=== PATIENT | male | born 1960 | race Caucasian/White ===

== ENCOUNTER → 2024-11-07 16:08 | Outpatient (BNV) | payer MEDICARE, SELFPAY | PROVIDERS: Visit Provider Clinical Nurse Specialist Psychiatric/Mental Health | DX: F33.2 Major depressive disorder, recurrent severe without psychotic features (principal); F41.1 Generalized anxiety disorder | CPT/HCPCS: 99205; G2212 ==

== ENCOUNTER 2024-12-18 09:00 | Outpatient (RCR) | payer MEDICARE, SELFPAY ==
--- NOTE | 2024-11-07 12:50 | P.CONTMS_ITS ---
History of Present Illness General Data Date of Service: 11/07/2024 Reason for consult: Depression Requesting provider: Kristina Desir History of Present Illness pt referred by Dr Desir for TMS consult due to severe depression and not re sponding to medications. PHQ9=24 and GAD7= 17. Pt is very depresse. He reports hypersomnia with sleeping at least 8 hours at night and then 4-5 hours during the day; hespends most of his days on the couch; he reports ow energy, anhedonia, poor appeite, feeling bad about himself, failing like failure, and psychomotor retardation. He also reports anious, nervous, worried every day. He reports irritability and feelings of dread. He denies SI or HI; He denies psychotic symptoms; he denies any periods of kaveh. Pt has a histroy of ETOH abuse and last drink was 3 months ago; he is taking naltrexone and topomax which he says is effective to reduce cravings. Pt past failed medication trials:abilify, lamictal, risperdal, effexor, paxil, lithium. Past Psychiatric History/Medication Trials: Depression since 2004. Hospitalized many times for depression,overdoses and etoh; 2004, 2006,2009,2017,2018, 2019. Most recent time was in 2019. 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 none in 3 months Trauma History: yes childhood Meds/Allergies Meds Narrative: Lexapro 20 mg daily wellbutrin XL 300mg daily am Latuda 40mg daily Naltrexone 50mg daily topomax 50mg daily trazodone 100mg bedtime Allergies Allergies Allergy/AdvReac Type Severity Reaction Status Date / Time No Known Allergies Allergy Verified 11/07/24 16:46 Mental Status Exam Mental Status Exam Patient Appearance: Well Grooomed and Appropriate Patient Orientation: Person, Place, Time and Situation Level of Consciousness: Awake Patient Behavior: Appropriate and Passive Mood Description: Depressed and Flat Affect Description: Depressed and Flat Patient Cognition Impaired: No Ability to Follow Directions: Good Speech Pattern: Clear, Monotone and Soft-Spoken Memory Description: Intact Hallucinations: None Delusions: Not Present Thought Process: Slowed Thinking Thought Content: positive for Poverty of Content Judgement: Good Assessment & Plan Assessment & Plan (1) Major depressive disorder, recurrent severe without psychotic features: Status: Acute Code(s): F33.2 - Major depressive disorder, recurrent severe without psychotic features (2) ANDREW (generalized anxiety disorder): Status: Acute Code(s): F41.1 - Generalized anxiety disorder Plan Pt is candidate for TMS treatment given severity of depression and lack of response to medications. He has no contraindications to TMS; he denies pacemaker or cochlear implant; he reports screws from 1982 right shoulder repair but he has had MRI of knee without incident in 2022. He denies history of kaveh or psychosis; He denies current SI ro HI; He has made suicide attempts in past with most recent being in 2019. He has history of heavy alcohol use but none in 3 months. He denies history of seizures; he has good support from family and specifically his Whitney. Plan: TMS treatment recommended Total time managing care of this patient today __90__ minutes. Patient educated on: diagnosis and TMS Guardian/Caregiver educated on: diagnosis, TMS and therapeutic strategies Informed Consent: understands
--- NOTE | 2024-11-12 16:26 | HO.TMSDAILY2 ---
TMS Daily Progress Note Daily TMS Progress Note Date of Service: 11/11/24 Week #: 1 Treatment #(06-20): 1 and mapping completed PHQ-9 Pre-Treatment (-): 24 PHQ-9 Most Recent (06-17): 24 ANDREW-7 Pre-Treatment (0-21): 17 ANDREW-7 Most Recent (0-21): 17 Reviewed: TMS Mapping/Re-mapping completed Verification: I have reviewed the TMS Personal Insurance Advisor Note and agree with the contents. The patient remains a candidate to continue TMS treatment per protocol. Assessment and Plan (1) Major depressive disorder, recurrent severe without psychotic features: Status: Acute Plan Continue TMS tx plan. Total time managing care of this patient today: 40 minutes.
--- NOTE | 2024-11-12 16:28 | HO.TMSDAILY2 ---
TMS Daily Progress Note Daily TMS Progress Note Date of Service: 11/12/24 Week #: 1 Treatment #(30): 2 PHQ-9 Pre-Treatment (-): 24 PHQ-9 Most Recent (06-17): 24 ANDREW-7 Pre-Treatment (0-21): 17 ANDREW-7 Most Recent (0-21): 17 Reviewed: TMS Tech Note Reviewed Verification: I have reviewed the TMS Production Maintenance Technician Note and agree with the contents. The patient remains a candidate to continue TMS treatment per protocol. Assessment and Plan (1) Major depressive disorder, recurrent severe without psychotic features: Status: Acute Plan Continue TMS tx plan
--- NOTE | 2024-11-18 10:58 | P.PNPS_ITS ---
TMS Daily Progress Note Daily TMS Progress Note Date of Service: 11/14/24 Week #: 1 Treatment #(06-20): 4 PHQ-9 Pre-Treatment (-): 24 PHQ-9 Most Recent (06-17): 24 ANDREW-7 Pre-Treatment (0-21): 17 ANDREW-7 Most Recent (0-21): 17 CGI-I Most Recent: 0 = Not Assessed Reviewed: TMS Tech Note Reviewed Verification: I have reviewed the TMS Pressure Test Operator Note and agree with the contents. The patient remains a candidate to continue TMS treatment per protocol. Assessment and Plan (1) Major depressive disorder, recurrent severe without psychotic features: Status: Acute (2) ANDREW (generalized anxiety disorder): Status: Acute Plan Continue TMS treatment as planned
--- NOTE | 2024-11-18 10:59 | HO.TMSDAILY2 ---
TMS Daily Progress Note Daily TMS Progress Note Date of Service: 11/18/24 Week #: 2 Treatment #(06-20): 6 PHQ-9 Pre-Treatment (-): 24 PHQ-9 Most Recent (06-17): 21 ANDREW-7 Pre-Treatment (0-21): 17 ANDREW-7 Most Recent (0-21): 19 CGI-I Most Recent: 0 = Not Assessed Reviewed: TMS Tech Note Reviewed Verification: I have reviewed the TMS Checker Cashier Note and agree with the contents. The patient remains a candidate to continue TMS treatment per protocol. Assessment and Plan (1) Major depressive disorder, recurrent severe without psychotic features: Status: Acute (2) ANDREW (generalized anxiety disorder): Status: Acute Plan Continue TMS treatment plan
--- NOTE | 2024-11-19 13:00 | HO.TMSDAILY2 ---
TMS Daily Progress Note Daily TMS Progress Note Date of Service: 11/19/24 Week #: 2 Treatment #(06-20): 7 PHQ-9 Pre-Treatment (-): 24 PHQ-9 Most Recent (06-17): 21 ANDREW-7 Pre-Treatment (0-21): 17 ANDREW-7 Most Recent (0-21): 19 CGI-I Most Recent: 0 = Not Assessed Reviewed: TMS Tech Note Reviewed Verification: I have reviewed the TMS Projection Welding Machine Operator Note and agree with the contents. The patient remains a candidate to continue TMS treatment per protocol. Assessment and Plan (1) Major depressive disorder, recurrent severe without psychotic features: Status: Acute (2) ANDREW (generalized anxiety disorder): Status: Acute Plan Continue TMS treatment plan
--- NOTE | 2024-11-25 09:54 | HO.TMSDAILY2 ---
TMS Daily Progress Note Daily TMS Progress Note Date of Service: 11/25/24 Week #: 2 Treatment #(-): 9 PHQ-9 Pre-Treatment (-): 24 PHQ-9 Most Recent (06-17): 21 ANDREW-7 Pre-Treatment (0-21): 17 ANDREW-7 Most Recent (0-21): 19 CGI-I Most Recent: 0 = Not Assessed Reviewed: TMS Tech Note Reviewed Verification: I have reviewed the TMS Concrete Pump Operator Helper Note and agree with the contents. The patient remains a candidate to continue TMS treatment per protocol. Assessment and Plan (1) Major depressive disorder, recurrent severe without psychotic features: Status: Acute (2) ANDREW (generalized anxiety disorder): Status: Acute Plan Continue TMS treatment plan
--- NOTE | 2024-11-29 13:22 | HO.TMSDAILY2 ---
TMS Daily Progress Note Daily TMS Progress Note Date of Service: 11/29/24 Week #: 3 Treatment #(-): 14 PHQ-9 Pre-Treatment (-): 24 PHQ-9 Most Recent (06-17): 12 ANDREW-7 Pre-Treatment (0-21): 17 ANDREW-7 Most Recent (0-21): 10 CGI-I Most Recent: 0 = Not Assessed Reviewed: TMS Tech Note Reviewed Verification: I have reviewed the TMS Broker Agricultural Produce Note and agree with the contents. The patient remains a candidate to continue TMS treatment per protocol. Assessment and Plan (1) Major depressive disorder, recurrent severe without psychotic features: Status: Acute
--- NOTE | 2024-12-09 17:34 | P.PNPS_ITS ---
TMS Daily Progress Note Daily TMS Progress Note Date of Service: 12/09/24 Week #: 4 Treatment #(06-20): 20 PHQ-9 Pre-Treatment (1-): 24 PHQ-9 Most Recent (06-17): 15 ANDREW-7 Pre-Treatment (0-21): 17 ANDREW-7 Most Recent (0-21): 18 CGI-I Most Recent: 0 = Not Assessed Reviewed: TMS Tech Note Reviewed Verification: I have reviewed the TMS Director Learning And Development Note and agree with the contents. The patient remains a candidate to continue TMS treatment per protocol. Assessment and Plan (1) Major depressive disorder, recurrent severe without psychotic features: Status: Acute Plan continue tms
--- NOTE | 2024-12-10 09:16 | P.PNPS_ITS ---
TMS Daily Progress Note Daily TMS Progress Note Date of Service: 11/21/24 Week #: 2 Treatment #(-): 9 PHQ-9 Pre-Treatment (-): 24 PHQ-9 Most Recent (06-17): 21 ANDREW-7 Pre-Treatment (0-21): 17 ADNREW-7 Most Recent (0-21): 19 CGI-I Most Recent: 0 = Not Assessed Reviewed: TMS Tech Note Reviewed Verification: I have reviewed the TMS Flatware Maker Note and agree with the contents. The patient remains a candidate to continue TMS treatment per protocol. Assessment and Plan (1) Major depressive disorder, recurrent severe without psychotic features: Status: Acute Plan continue tms
--- NOTE | 2024-12-10 09:17 | P.PNPS_ITS ---
TMS Daily Progress Note Daily TMS Progress Note Date of Service: 11/26/24 Week #: 3 Treatment #(06-20): 11 PHQ-9 Pre-Treatment (-): 24 PHQ-9 Most Recent (06-17): 12 ANDREW-7 Pre-Treatment (0-21): 17 ANDREW-7 Most Recent (0-21): 10 CGI-I Most Recent: 0 = Not Assessed Reviewed: TMS Tech Note Reviewed Verification: I have reviewed the TMS Unemployment Insurance Hearing Officer Note and agree with the contents. The patient remains a candidate to continue TMS treatment per protocol. Assessment and Plan (1) Major depressive disorder, recurrent severe without psychotic features: Status: Acute Plan continue tms
--- NOTE | 2024-12-10 09:20 | P.PNPS_ITS ---
TMS Daily Progress Note Daily TMS Progress Note Date of Service: 11/28/24 Week #: 3 Treatment #(-): 13 PHQ-9 Pre-Treatment (-): 24 PHQ-9 Most Recent (06-17): 12 ANDREW-7 Pre-Treatment (0-21): 17 ANDREW-7 Most Recent (0-21): 10 CGI-I Most Recent: 0 = Not Assessed Reviewed: TMS Tech Note Reviewed Verification: I have reviewed the TMS Event Security Officer Note and agree with the contents. The patient remains a candidate to continue TMS treatment per protocol. Assessment and Plan (1) Major depressive disorder, recurrent severe without psychotic features: Status: Acute Plan continue tms
--- NOTE | 2024-12-10 09:21 | P.PNPS_ITS ---
TMS Daily Progress Note Daily TMS Progress Note Date of Service: 12/02/24 Week #: 3 Treatment #(-): 15 PHQ-9 Pre-Treatment (1-): 24 PHQ-9 Most Recent (06-17): 18 ANDREW-7 Pre-Treatment (0-21): 17 ANDREW-7 Most Recent (0-21): 17 CGI-I Most Recent: 0 = Not Assessed Reviewed: TMS Tech Note Reviewed Verification: I have reviewed the TMS Farmworker Grain Note and agree with the contents. The patient remains a candidate to continue TMS treatment per protocol. Assessment and Plan (1) Major depressive disorder, recurrent severe without psychotic features: Status: Acute Plan continue tms
--- NOTE | 2024-12-10 09:22 | P.PNPS_ITS ---
TMS Daily Progress Note Daily TMS Progress Note Date of Service: 12/03/24 Week #: 4 Treatment #(06-20): 16 PHQ-9 Pre-Treatment (1-): 24 PHQ-9 Most Recent (06-17): 18 ANDREW-7 Pre-Treatment (0-21): 17 ANDREW-7 Most Recent (0-21): 17 CGI-I Most Recent: 0 = Not Assessed Reviewed: TMS Tech Note Reviewed Verification: I have reviewed the TMS Education Dean Note and agree with the contents. The patient remains a candidate to continue TMS treatment per protocol. Assessment and Plan (1) Major depressive disorder, recurrent severe without psychotic features: Status: Acute Plan continue tms
--- NOTE | 2024-12-10 09:23 | P.PNPS_ITS ---
TMS Daily Progress Note Daily TMS Progress Note Date of Service: 12/05/24 Week #: 4 Treatment #(06-20): 18 PHQ-9 Pre-Treatment (1-): 24 PHQ-9 Most Recent (06-17): 18 ANDREW-7 Pre-Treatment (0-21): 17 ANDREW-7 Most Recent (0-21): 17 CGI-I Most Recent: 0 = Not Assessed Reviewed: TMS Tech Note Reviewed Verification: I have reviewed the TMS Barrel Line Operator Note and agree with the contents. The patient remains a candidate to continue TMS treatment per protocol. Assessment and Plan (1) Major depressive disorder, recurrent severe without psychotic features: Status: Acute (2) ANDREW (generalized anxiety disorder): Status: Acute Plan Continue with TMS treatment plan
--- NOTE | 2024-12-12 17:38 | P.PNPS_ITS ---
TMS Daily Progress Note Daily TMS Progress Note Date of Service: 12/12/24 Week #: 4 Treatment #(06-20): 23 PHQ-9 Pre-Treatment (-): 24 PHQ-9 Most Recent (06-17): 15 ANDREW-7 Pre-Treatment (0-21): 17 ANDREW-7 Most Recent (0-21): 18 CGI-I Most Recent: 0 = Not Assessed Reviewed: TMS Tech Note Reviewed Verification: I have reviewed the TMS Manager Research And Development Note and agree with the contents. The patient remains a candidate to continue TMS treatment per protocol. Assessment and Plan (1) Major depressive disorder, recurrent severe without psychotic features: Status: Acute (2) ANDREW (generalized anxiety disorder): Status: Acute Plan This advertising copywriter spoke with Bridgett Valdes TMS coordinator and Hemant May MD about case including pt presentation and 's concerns; Pt has untreated sleep apnea. Plan is to discuss this with patient and order labs to rule out medical etiology for fatigue and low energy. Continue TMS plan
--- NOTE | 2024-12-15 21:49 | P.PNPS_ITS ---
TMS Daily Progress Note Daily TMS Progress Note Date of Service: 11/13/24 Week #: 1 Treatment #(06-20): 3 PHQ-9 Pre-Treatment (-): 24 PHQ-9 Most Recent (06-17): 24 ANDREW-7 Pre-Treatment (0-21): 17 ANDREW-7 Most Recent (0-21): 17 CGI-I Most Recent: 0 = Not Assessed Reviewed: TMS Tech Note Reviewed Verification: I have reviewed the TMS Building Cleaner Note and agree with the contents. The patient remains a candidate to continue TMS treatment per protocol. Assessment and Plan (1) Major depressive disorder, recurrent severe without psychotic features: Status: Acute (2) ANDREW (generalized anxiety disorder): Status: Acute Plan pt did have obrien took advil cont plan of care
--- NOTE | 2024-12-15 21:54 | HO.TMSDAILY2 ---
TMS Daily Progress Note Daily TMS Progress Note Date of Service: 11/15/24 Week #: 1 Treatment #(06-20): 5 PHQ-9 Pre-Treatment (-): 24 PHQ-9 Most Recent (06-17): 24 ANDREW-7 Pre-Treatment (0-21): 17 ANDREW-7 Most Recent (0-21): 17 CGI-I Most Recent: 0 = Not Assessed Reviewed: TMS Tech Note Reviewed Verification: I have reviewed the TMS Yield Loss Inspector Note and agree with the contents. The patient remains a candidate to continue TMS treatment per protocol. Assessment and Plan (1) Major depressive disorder, recurrent severe without psychotic features: Status: Acute Plan Patient flattened depressed tolerating treatment gradual increase in MT percentage continue plan of care
--- NOTE | 2024-12-15 21:59 | HO.TMSDAILY2 ---
TMS Daily Progress Note Daily TMS Progress Note Date of Service: 11/20/24 Week #: 2 Treatment #(06-20): 8 PHQ-9 Pre-Treatment (-): 24 PHQ-9 Most Recent (06-17): 21 ANDREW-7 Pre-Treatment (0-21): 17 ANDREW-7 Most Recent (0-21): 19 CGI-I Most Recent: 0 = Not Assessed Reviewed: TMS Tech Note Reviewed Verification: I have reviewed the TMS Manager Food Beverage Note and agree with the contents. The patient remains a candidate to continue TMS treatment per protocol. Assessment and Plan (1) Major depressive disorder, recurrent severe without psychotic features: Status: Acute (2) ANDREW (generalized anxiety disorder): Status: Acute Plan Patient continues depressed MT percentage gradually increasing no significant side effects noted
--- NOTE | 2024-12-15 22:04 | HO.TMSDAILY2 ---
TMS Daily Progress Note Daily TMS Progress Note Date of Service: 12/04/24 Week #: 4 Treatment #(06-20): 17 PHQ-9 Pre-Treatment (1-): 24 PHQ-9 Most Recent (06-17): 18 ANDREW-7 Pre-Treatment (0-21): 17 ANDREW-7 Most Recent (0-21): 17 CGI-I Most Recent: 0 = Not Assessed Reviewed: TMS Tech Note Reviewed Verification: I have reviewed the TMS Milk Route Supervisor Note and agree with the contents. The patient remains a candidate to continue TMS treatment per protocol. Assessment and Plan (1) Major depressive disorder, recurrent severe without psychotic features: Status: Acute (2) ANDREW (generalized anxiety disorder): Status: Acute Plan Patient complains of some fatigue post treatment otherwise tolerating treatment
--- NOTE | 2024-12-15 22:10 | P.PNPS_ITS ---
TMS Daily Progress Note Daily TMS Progress Note Date of Service: 12/06/24 Week #: 4 Treatment #(06-20): 19 PHQ-9 Pre-Treatment (-): 24 PHQ-9 Most Recent (06-17): 18 ANDREW-7 Pre-Treatment (0-21): 17 ANDREW-7 Most Recent (0-21): 17 CGI-I Most Recent: 0 = Not Assessed Reviewed: TMS Tech Note Reviewed Verification: I have reviewed the TMS Ping Pong Table Assembler Note and agree with the contents. The patient remains a candidate to continue TMS treatment per protocol. Assessment and Plan (1) Major depressive disorder, recurrent severe without psychotic features: Status: Acute (2) ANDREW (generalized anxiety disorder): Status: Acute Plan Patient states he is doing okay continues with fatigue question some improvement in motivation but minimal patient will be meeting with Mary Mercedes next treatment to reassess treatment
--- NOTE | 2024-12-15 22:18 | P.PNPS_ITS ---
TMS Daily Progress Note Daily TMS Progress Note Date of Service: 12/11/24 Week #: 5 Treatment #(-): 22 PHQ-9 Pre-Treatment (1-): 24 PHQ-9 Most Recent (06-17): 15 ANDREW-7 Pre-Treatment (0-21): 17 ANDREW-7 Most Recent (0-21): 18 CGI-I Most Recent: 0 = Not Assessed Reviewed: TMS Tech Note Reviewed Verification: I have reviewed the TMS Day Haul Youth Supervisor Note and agree with the contents. The patient remains a candidate to continue TMS treatment per protocol. Assessment and Plan (1) Major depressive disorder, recurrent severe without psychotic features: Status: Acute (2) ANDREW (generalized anxiety disorder): Status: Acute Plan pt continues to have daytime fatigue lethargy ? etiology
--- NOTE | 2024-12-15 22:26 | HO.TMSDAILY2 ---
TMS Daily Progress Note Daily TMS Progress Note Date of Service: 12/13/24 Week #: 5 Treatment #(30): 24 PHQ-9 Pre-Treatment (-): 24 PHQ-9 Most Recent (06-17): 15 ANDREW-7 Pre-Treatment (0-21): 17 ANDREW-7 Most Recent (0-21): 18 CGI-I Most Recent: 0 = Not Assessed Reviewed: TMS Tech Note Reviewed Verification: I have reviewed the TMS Set Up Mechanic Coil Winding Machines Note and agree with the contents. The patient remains a candidate to continue TMS treatment per protocol. Assessment and Plan (1) Major depressive disorder, recurrent severe without psychotic features: Status: Acute (2) ANDREW (generalized anxiety disorder): Status: Acute Plan pts has been concerned sees no change pt has had different perspective discussed with piedad and kavya beckham np
--- NOTE | 2024-12-16 15:17 | P.PNPS_ITS ---
TMS Daily Progress Note Daily TMS Progress Note Date of Service: 12/10/24 Week #: 5 Treatment #(06-20): 21 PHQ-9 Pre-Treatment (-): 24 PHQ-9 Most Recent (06-17): 15 ANDREW-7 Pre-Treatment (0-21): 17 ANDREW-7 Most Recent (0-21): 18 CGI-I Most Recent: 0 = Not Assessed Reviewed: TMS Tech Note Reviewed Verification: I have reviewed the TMS Riveting Machine Operator Automatic Note and agree with the contents. The patient remains a candidate to continue TMS treatment per protocol. Assessment and Plan (1) Major depressive disorder, recurrent severe without psychotic features: Status: Acute (2) ANDREW (generalized anxiety disorder): Status: Acute Plan pts has been concerned sees no change pt has had different perspective and PHQ9 improving. Discussed with Bridgett Zimmerman TMS coordinator and Glenroy May MD
--- NOTE | 2024-12-17 13:04 | HO.TMSDAILY2 ---
TMS Daily Progress Note Daily TMS Progress Note Date of Service: 12/16/24 Week #: 5 Treatment #(30): 25 PHQ-9 Pre-Treatment (1-): 24 PHQ-9 Most Recent (06-17): 22 ANDREW-7 Pre-Treatment (0-21): 17 ANDREW-7 Most Recent (0-21): 18 CGI-I Most Recent: 0 = Not Assessed Reviewed: TMS Tech Note Reviewed Verification: I have reviewed the TMS Electronic Publications Specialist Note and agree with the contents. The patient remains a candidate to continue TMS treatment per protocol. Assessment and Plan (1) Major depressive disorder, recurrent severe without psychotic features: Status: Acute (2) ANDREW (generalized anxiety disorder): Status: Acute Plan pt and sees no change: pt and informed about options for ECT and Esketamine. Pt states he is interested in esketamine treatmetn. Continue with TMS protocol
--- NOTE | 2024-12-17 13:06 | HO.TMSDAILY2 ---
TMS Daily Progress Note Daily TMS Progress Note Date of Service: 12/17/24 Week #: 6 Treatment #(06-20): 26 PHQ-9 Pre-Treatment (-): 24 PHQ-9 Most Recent (06-17): 22 ANDREW-7 Pre-Treatment (0-21): 17 ANDREW-7 Most Recent (0-21): 18 CGI-I Most Recent: 0 = Not Assessed Reviewed: TMS Tech Note Reviewed Verification: I have reviewed the TMS Correction Officer [facility] Note and agree with the contents. The patient remains a candidate to continue TMS treatment per protocol. Assessment and Plan (1) Major depressive disorder, recurrent severe without psychotic features: Status: Acute (2) ANDREW (generalized anxiety disorder): Status: Acute Plan pt and sees no change: pt and informed about options for ECT and Esketamine. Pt states he is interested in esketamine treatmetn. Continue with TMS protocol
--- NOTE | 2024-12-29 21:46 | P.PNPS_ITS ---
TMS Daily Progress Note Daily TMS Progress Note Date of Service: 11/13/24 Week #: 1 Treatment #(06-20): 3 PHQ-9 Pre-Treatment (-): 24 PHQ-9 Most Recent (06-17): 24 ANDREW-7 Pre-Treatment (0-21): 17 ANDREW-7 Most Recent (0-21): 18 CGI-I Most Recent: 0 = Not Assessed Reviewed: TMS Tech Note Reviewed Verification: I have reviewed the TMS Change Management Director Note and agree with the contents. The patient remains a candidate to continue TMS treatment per protocol. Assessment and Plan (1) Major depressive disorder, recurrent severe without psychotic features: Status: Acute Plan some c/o pain tx advil
--- NOTE | 2024-12-29 21:50 | P.PNPS_ITS ---
TMS Daily Progress Note Daily TMS Progress Note Date of Service: 11/15/24 Week #: 1 Treatment #(06-20): 5 PHQ-9 Pre-Treatment (-): 24 PHQ-9 Most Recent (06-17): 24 ANDREW-7 Pre-Treatment (0-21): 17 ANDREW-7 Most Recent (0-21): 18 CGI-I Most Recent: 0 = Not Assessed Reviewed: TMS Tech Note Reviewed Verification: I have reviewed the TMS Supervisor Fish Processing Note and agree with the contents. The patient remains a candidate to continue TMS treatment per protocol. Assessment and Plan (1) Major depressive disorder, recurrent severe without psychotic features: Status: Acute Plan depressed withdrawn cont plan of care
--- NOTE | 2024-12-29 21:57 | HO.TMSDAILY2 ---
TMS Daily Progress Note Daily TMS Progress Note Date of Service: 12/29/24 Week #: 2 Treatment #(06-20): 8 PHQ-9 Pre-Treatment (-): 24 PHQ-9 Most Recent (06-17): 24 ANDREW-7 Pre-Treatment (0-21): 17 ANDREW-7 Most Recent (0-21): 18 CGI-I Most Recent: 0 = Not Assessed Reviewed: TMS Tech Note Reviewed Verification: I have reviewed the TMS Wireless Internet Installer Note and agree with the contents. The patient remains a candidate to continue TMS treatment per protocol. Assessment and Plan (1) Major depressive disorder, recurrent severe without psychotic features: Status: Acute Plan cont plan pt remains quite depressed
--- NOTE | 2024-12-29 22:01 | HO.TMSDAILY2 ---
TMS Daily Progress Note Daily TMS Progress Note Date of Service: 12/04/24 Week #: 4 Treatment #(06-20): 17 PHQ-9 Pre-Treatment (1-): 24 PHQ-9 Most Recent (06-17): 24 ANDREW-7 Pre-Treatment (0-21): 17 ANDREW-7 Most Recent (0-21): 18 CGI-I Most Recent: 0 = Not Assessed Reviewed: TMS Tech Note Reviewed Verification: I have reviewed the TMS Weather Strip Installer Note and agree with the contents. The patient remains a candidate to continue TMS treatment per protocol. Assessment and Plan (1) Major depressive disorder, recurrent severe without psychotic features: Status: Acute Plan pt flat dysphoric some imp ?
--- NOTE | 2024-12-29 22:06 | HO.TMSDAILY2 ---
TMS Daily Progress Note Daily TMS Progress Note Date of Service: 12/06/24 Week #: 4 Treatment #(06-20): 19 PHQ-9 Pre-Treatment (1-): 24 PHQ-9 Most Recent (06-17): 14 ANDREW-7 Pre-Treatment (0-21): 17 ANDREW-7 Most Recent (0-21): 18 CGI-I Most Recent: 0 = Not Assessed Reviewed: TMS Tech Note Reviewed Verification: I have reviewed the TMS Monitoring Engineer Note and agree with the contents. The patient remains a candidate to continue TMS treatment per protocol. Assessment and Plan (1) Major depressive disorder, recurrent severe without psychotic features: Status: Acute Plan pt apathetic limited fx quite concerned
--- NOTE | 2024-12-31 13:17 | P.PNPS_ITS ---
TMS Daily Progress Note Daily TMS Progress Note Date of Service: 11/27/24 Week #: 3 Treatment #(-30): 12 PHQ-9 Pre-Treatment (1-): 24 PHQ-9 Most Recent (06-17): 14 ANDREW-7 Pre-Treatment (0-21): 17 ANDREW-7 Most Recent (0-21): 18 CGI-I Most Recent: 0 = Not Assessed Reviewed: TMS Tech Note Reviewed Verification: I have reviewed the TMS Staff Physical Therapist Note and agree with the contents. The patient remains a candidate to continue TMS treatment per protocol.
--- NOTE | 2025-01-21 17:53 | HO.TMSDAILY2 ---
TMS Daily Progress Note Daily TMS Progress Note Date of Service: 12/18/24 Week #: 6 Treatment #(06-20): 27 PHQ-9 Pre-Treatment (-): 24 PHQ-9 Most Recent (06-17): 22 ANDREW-7 Pre-Treatment (0-21): 17 ANDREW-7 Most Recent (0-21): 18 CGI-I Most Recent: 0 = Not Assessed Reviewed: TMS Tech Note Reviewed Verification: I have reviewed the TMS Blade Worker Note and agree with the contents. The patient remains a candidate to continue TMS treatment per protocol. Assessment and Plan (1) Major depressive disorder, recurrent severe without psychotic features: Status: Acute Plan pt flat withdrawn and depressed will consider ect spravato ? sub use Remains severely depressed not functioning quite constricted
== END 2024-12-19 12:00 | disposition admitted as inpatient to this hospital (09) ==
LOC: HO.PTMS 09:00
PROVIDERS: Visit Provider Clinical Nurse Specialist Psychiatric/Mental Health
DX: F33.2 Major depressive disorder, recurrent severe without psychotic features (principal); F41.1 Generalized anxiety disorder
CPT/HCPCS: 90867; 90868

== ENCOUNTER 2024-12-18 10:31 | Outpatient (REF) | payer MEDICARE, SELFPAY ==
[2024-12-18 10:40] LABS: MANUAL DIFF FLAG NO
[2024-12-18 10:59] LABS: Hematocrit 45.1 % (42.0-52.0); Hemoglobin 16.2 g/dl (14.0-18.0); Imm Gran Abs Auto 0.10 X10*3/uL (0.00-0.03); Imm Gran Pct Auto 1.4 % (0.0-0.4); Lymphocytes Absolute Auto 2.0 X10*3/uL (1.2-4.9); Mean Corpuscular HGB Conc 35.9 g/dl (31.0-36.0); Mean Corpuscular Hemoglobin 30.9 pg (27.0-33.0); Mean Corpuscular Volume 86.1 fL (80.0-98.0); NRBC Abs Auto 0.000 X10*3/uL (0.0-0.012); NRBC Pct Auto 0.0 /100WBC (0.0-0.2); Platelet Count 204 X10*3/uL (160-400); Red Blood Count 5.24 X10*6/uL (4.60-5.80); White Blood Count 7.3 X10*3/uL (4.8-10.8)
--- OUTSIDE RECORDS SUMMARY | 2024-12-18 11:28 | XMS_ITS | Clinical Summary ---
Author Organization [facility], Address [address] [address] Phone Care Team Providers Care Molder Vacuum Name Role Phone Deena Rojo NP Primary Care Provider Allergies Active Allergy Reactions Criticality Noted Date Comments Bupropion 03/24/2021 [place] 03/24/2021 Paroxetine 03/24/2021 Venlafaxine 03/24/2021 Medications ARIPiprazole (Abilify) 5 MG tablet Take 5 mg by mouth 1 (one) time each day Active amLODIPine (NORVASC) 5 MG tablet Take 5 mg by mouth 1 (one) time each day Active escitalopram (LEXAPRO) 20 MG tablet Take 20 mg by mouth 1 (one) time each day Active fenofibrate (TRIGLIDE) 160 MG tablet Take 160 mg by mouth 1 (one) time each day Active folic acid (FOLVITE) 1 MG tablet Take 1 mg by mouth 1 (one) time each day Active omega-3 acid ethyl esters (LOVAZA) 1 g capsule Take 2 g by mouth 2 (two) times a day Active Melatonin 5 MG tablet Take by mouth Active naltrexone (DEPADE) 50 MG tablet Take 50 mg by mouth 1 (one) time each day Active oxyCODONE (OxyCONTIN) 10 MG 12 hr abuse-deterrent tablet Take 10 mg by mouth every 12 (twelve) hours Do not crush, chew, or split. Active pantoprazole (PROTONIX) 20 MG EC tablet Take 20 mg by mouth 1 (one) time each day before breakfast Do not crush, chew, or split. Active rosuvastatin (CRESTOR) 20 MG tablet Take 20 mg by mouth 1 (one) time each day Active thiamine (VITAMIN B-1) 100 MG tablet Take 100 mg by mouth 1 (one) time each day Active traZODone (DESYREL) 150 MG tablet Take 150 mg by mouth every night Active acetaminophen (TYLENOL) 500 MG tablet Take by mouth every 6 (six) hours if needed for mild pain Active lisinopril 5 MG tablet Take 1 tablet (5 mg total) by mouth 1 (one) time each day 30 tablet 11 Active omega-3 (FISH OIL) 1000 MG capsule Take 2,000 mg by mouth Active Active Problems Problem Noted Date Diagnosed Date Benign prostatic hyperplasia 07/28/2021 Recurrent depression 07/28/2021 Essential (primary) hypertension 03/24/2021 Hyperlipidemia 03/24/2021 Gastroesophageal reflux disease 03/24/2021 Immunizations Immunization Administration Dates Next Due DTaP 09/15/2015 Pfizer SARS-COV-2 09/05/2020,08/15/2020 Pneumococcal Polysaccharide 10/29/2019, 7 Shingrix 01/22/2021 Zoster 11/05/2020 Social History Tobacco Use Types Packs/Day Years Used Date Smoking Tobacco: Never Smokeless Tobacco: Never Sex and Gender Information Value Date Recorded Sex Assigned at Not on file Legal Sex Male 12:34 PM EDT Gender Identity Not on file Sexual Orientation Not on file Plan of Treatment Health Maintenance Due Date Last Done Comments Colorectal Cancer Screening: Annual FOBT 2010 Colorectal Cancer Screening: Colonoscopy 2010 Colorectal Cancer Screening: Sigmoidoscopy 2010 Pneumococcal Vaccine: 50+ Years (2 of 2 - PCV) 10/28/2020 10/29/2019, 02/16/2007 Influenza Vaccine (#1) 2025 Pneumococcal Vaccine: Peds ( 0 to 5 Years) and At-Risk Patients (6 to 49 Years) Discontinued 10/29/2019, 02/16/2007 Hepatitis B Vaccine Aged Out No longe r eligible based on patient's age to complete [place] [id number] [facility] Care Teams Molder Vacuum Relationship Specialty Start Date End Date Deena Rojo NP [address] [place] [address] PCP - General Nurse Practitioner 03/24/21
[2024-12-18 12:41] LABS: Alanine Aminotransferase 227 U/L (0-40); Albumin Level 4.5 g/dL (3.5-5.0); Alkaline Phosphatase 109 U/L (39-117); Anion Gap 14 (12-20); Aspartate Amino Transferase 299 U/L (5-37); Blood Urea Nitrogen 10 mg/dL (9-16); Calcium 8.6 mg/dL (8.4-10.2); Carbon Dioxide 23 mmol/L (22-29); Chloride 105 mmol/L (96-108); Estimated Glomerular Filt Rate > 60; Potassium 3.3 mmol/L (3.3-5.1); Sodium 139 mmol/L (135-145); Total Protein 7.1 g/dL (6.5-8.0)
[2024-12-18 12:58] LABS: Folate 14.6 ng/mL (> or = 4.0); Vitamin B12 758 pg/mL (200-900)
== END 2024-12-18 10:32 | disposition home or self-care (01) ==
LOC: HO.LAB 10:31
PROVIDERS: PCP Nurse Practitioner Family; Visit Provider Psychiatry & Neurology Psychiatry
DX: F33.2 Major depressive disorder, recurrent severe without psychotic features (principal); E78.1 Pure hyperglyceridemia; R53.83 Other fatigue
CPT/HCPCS: 36415; 80053; 82607; 82746; 84443; 85025; 85652; 99212

== ENCOUNTER 2024-12-18 13:36 | Outpatient (AMB) | payer MEDICARE, SELFPAY ==
--- NOTE | 2024-12-18 23:52 | A.OFFPSYCH_ITS ---
Intake Intake Visit Reasons: Depression Allergies No Known Allergies Allergy (Verified 12/19/24 13:11) HPI- Psychiatric Chief Complaint: Depression HPI Narrative: Patient is referred along with his secondary to lack of response to TMS ongoing depression history of failed medication trials concerns about patient's lack of functioning. Patient has a history of alcoholism last relapse supposedly 7 months ago patient repeatedly denies relapse as a cause for why he is minimally functioning spending all day and house Patient sees Dr. 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 Check CBC Chem profile B12 folate TSH EKG reviewed risks benefits alternatives to ECT patient has failed TMS trial adamant regarding no current substance use Patient and will consider inpatient versus outpatient. Patient denies active thoughts of suicide No current trials of tricyclic nortriptyline Rexulti which remain alternatives Past records reviewed including prior hospitalization Counseling and coordination of Care Pt. Self Management counseling: Breathing, Sleep hygiene and Behavior activation Details-Med Mgmt counseling: Patient has failed Latuda citalopram check labs for any reasons for treatment resistant depression Diagnosis and Prognosis Counseling: Impact of diagnosis on life functions, Problematic behaviors secondary to diagnosis and Adequacy of current interventions Details-Diagnosis/Prognosis counseling: Discussed risks of ECT risks benefits alternatives reviewed patient again adamantly denies use of substances or alcohol his reason for lack of response no medical contraindication to ECT check CBC Chem profile EKG discussed option of inpatient versus outpatient literature given. Details: I spent [60] minutes reviewing the record, seeing the patient and documenting in the medical record. Counseling provided to the patient/caregiver as outlined below. Addressed patient/caregiver concerns regarding current medication regime including effective adherence. Addressed patient/caregiver concerns regarding diagnosis and prognosis including accuracy of diagnosis, prognosis over time, impact of diagnosis. Addressed patient/caregiver concerns regarding impact of recent stressors. 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 none in 3 months Trauma History: yes childhood Coding Level of Care Code Est Pt Level 5 (84471) Diagnoses Major depressive disorder, recurrent severe without psychotic features F33.2 Hypertriglyceridemia E78.1 Fatigue R53.83
== END 2024-12-18 13:37 | disposition home or self-care (01) ==
LOC: HO.HOP 13:36
PROVIDERS: PCP Nurse Practitioner Family; Visit Provider Psychiatry & Neurology Psychiatry
DX: F33.2 Major depressive disorder, recurrent severe without psychotic features (principal); E78.1 Pure hyperglyceridemia; R53.83 Other fatigue
CPT/HCPCS: 99215

== ENCOUNTER 2024-12-19 13:02 | Inpatient (IN) | payer MEDICARE, SELFPAY ==
--- NOTE | 2024-12-19 13:08 | ED.GENADULT ---
HPI - General Adult General Chief complaint: Psychiatric Symptoms Stated complaint: crisis Time Seen by Provider: 12/19/24 13:40 Source: patient Mode of arrival: ambulatory Limitations: no limitations History of Present Illness ED Provider: Tamanna Levine PA-C HPI narrative: Patient is a 64 year old assigned male at with a history of MDD and ANDREW receiving transcranial magnetic stimulation (TMS) on an outpatient basis presenting to the emergency department today with increased depression. Patient states that he was seen for his TMS session by Dr. May who recommended inpatient level of psychiatric care and had him come down to the emergency department. Patient denies any thoughts of hurting himself or others. Patient denies any dizziness, lightheadedness, abdominal pain, nausea, vomiting, fever, chills, blurry vision, double vision, loss of vision, chest pain, difficulty breathing, shortness of breath, back pain, night sweats, pain with urination, increased urinary frequency, increased urinary urgency, blood in his urine or stool, syncope or a near syncopal episode, recent trauma or falls, bowel incontinence, bladder incontinence, or any other complaints at this time. Relieving factors: none Exacerbating factors: none Associated symptoms: denies other symptoms Treatments prior to arrival: none Related Data Home Medications ?Medication ?Instructions ?Recorded ?Confirmed amlodipine 10 mg tablet 10 mg PO DAILY 12/19/24 12/19/24 bupropion HCl 300 mg 24 hr tablet, 300 mg PO QAM 12/19/24 12/19/24 extended release escitalopram oxalate 20 mg tablet 20 mg PO BEDTIME 12/19/24 12/19/24 ezetimibe 10 mg tablet 10 mg PO DAILY 12/19/24 12/19/24 fenofibrate 160 mg tablet 160 mg PO DAILY 12/19/24 12/19/24 lurasidone 40 mg tablet 40 mg PO QPM 12/19/24 12/19/24 metformin 500 mg tablet,extended 500 mg PO DAILY 12/19/24 12/19/24 release 24 hr naltrexone 50 mg tablet 50 mg PO DAILY 12/19/24 12/19/24 omega-3 acid ethyl esters 1 gram 2 cap PO BID 12/19/24 12/19/24 capsule rosuvastatin 20 mg tablet 20 mg PO DAILY 12/19/24 12/19/24 topiramate 50 mg tablet 50 mg PO BEDTIME 12/19/24 12/19/24 trazodone 100 mg tablet 100 mg PO BEDTIME 12/19/24 12/19/24 Allergies Allergy/AdvReac Type Severity Reaction Status Date / Time No Known Allergies Allergy Verified 12/19/24 13:11 Review of Systems Constitutional: Constitutional: Reports no additional constitutional complaints, Denies chills, Denies fever(s) and Denies night sweats Eyes: Eyes: Reports no additional eye complaints, Denies blurry vision, Denies change in vision, Denies diplopia, Denies eye discharge, Denies loss of vision and Denies eye pain ENT: Denies dizziness Cardiovascular: Cardiovascular: Reports no additional cardiovascular complaints, Denies chest pain, Denies lightheadedness, Denies Loss of Consciousness and Denies dyspnea Respiratory: Respiratory: Reports no additional respiratory complaints and Denies dyspnea Gastrointestinal: Gastrointestinal: Reports no additional gastrointestinal complaints, Denies abdominal pain, Denies melena, Denies hematochezia, Denies change in bowel habits and Denies change in stool character Genitourinary: Genitourinary: Reports no additional male genitourinary complaints, Denies hematuria, Denies oliguria, Denies difficulty urinating, Denies dysuria, Denies urinary frequency, Denies urinary hesitancy, Denies urinary incontinence and Denies urinary urgency Musculoskeletal: Musculoskeletal: Reports no additional musculoskeletal complaints, Denies numbness and Denies tingling Neurologic: Denies dizziness, Denies loss of vision, Denies numbness and Denies tingling Psychiatric: Psychiatric: Reports depression, Denies homicidal ideation and Denies suicidal ideation Endocrine: Endocrine: Reports no additional endocrine complaints Hematologic/Lymphatic: Hematologic/Lymphatic: Reports no additional hematologic/lymphatic complaints Allergic/Immunologic: Allergic/Immunologic: Reports no additional allergic/immunologic complaints [facility] Past Medical History Attestation statement: The following information was validated with the patient. Source: old records reviewed and nursing notes reviewed Medical History Fatigue Social History Social History Household Members: Spouse Housing: House Do you presently have visiting nurse or other home services: No Alcohol intake: former Patient Tobacco Use Status: Never used Tobacco Smoked in Last 30 Days: No Use of substances other than those prescribed or required for medical reasons: No Currently Displaying Signs/Symptoms of Drug Intoxication Withdrawal: No Have you been hit, kicked, punched, or otherwise hurt by someone within the past year? If so, by whom?: No Do you feel safe in your current relationship?: No Is there a partner from a previous relationship who is making you feel unsafe now?: No Are you made to feel afraid or neglected: No Spiritual Healthcare Practices: none Zoroastrian Healthcare Practices: none Cultural Healthcare Practices: none Advance Directives: No Advance Directives Information Provided: Yes Do you have thoughts of harming others: None Do you have a plan to hurt others: No Plan Recently lost weight without trying: No How much weight loss: Not applicable Eating poorly because of decreased appetite: No Nutrition screen score: 0 Nutrition Risks: No Nutritional Risk Poor oral hygiene: No Physical Exam ED Vital Signs: Vital Signs - 24 hr 12/19/24 13:09 Temperature 97.2 F Pulse Rate 83 Respiratory Rate 18 Blood Pressure 128/85 Pulse Oximetry 97 Oxygen Delivery Method Room Air BMI result Body Mass Index 34.3 Const General: cooperative, no acute distress, alert and awake Nutritional Appearance: well nourished Orientation/consciousness: patient oriented x3 HENMT Head: Yes normal to inspection and Yes atraumatic Ears: hearing grossly normal bilaterally and external ears normal General nose exam: Normal external nose present, no nasal discharge noted and no epistaxis Face and sinus: Yes normal facial exam, No abrasion and No laceration Mouth: Normal oral and palatal mucosa present, no drooling and no muffled voice Eyes General: appearance normal, both eyes and all related structures Periorbital: periorbital findings normal Eyelids: Yes eyelids normal Conjunctivae: conjunctivae normal Pupils: Equal, round and reactive pupils present EOM: EOMs intact bilaterally Neck Neck: Yes normal visual inspection, Yes full ROM and Yes no lymphadenopathy Resp Effort & Inspection: normal respiratory effort and able to speak in complete sentences Neuro General: patient oriented x3, moves all extremities and CN's II-XI intact bilaterally Cranial nerves: Yes Equal, round and reactive pupils present Cognition (Neuro): normal cognition Extrem General: Yes normal to inspection, Yes full ROM and Yes capillary refill normal Psych Appearance: grossly normal Mental Status: mental status grossly normal Affect: Labile affect present Attitude: Guarded attititude/behavior present Course Course Course Narrative: MARY Meneses 12/19/24 1309 This is a Rapid Medical Examination (RME) performed by Miko Terrell PA-C in triage. Full HPI, ROS, assessment and treatment plan per primary provider in the Main ED. Hx: 64 yo M hc of MDD here from Dr. May's office for increasing depression. he was at an appointment for TMS treatment today, dr. may feels he needs a higher level of care, sent to ED for inpatient treatment. denies SI/HI. remote hx of self harm. Plan: med clearance Reevaluation(s) Reevaluation #1: Time: 06:21 Date: 12/20/24 Provider: Sincere Prasad MD Patient in physician observation for psychiatric evaluation.? Patient has been in the emergency department for about 17 hours. No acute events reported overnight. No current complaints. VS stable.? Patient was evaluated by CARE team and is in in-patient psychiatric bed search. Will continue to monitor. Medications Administered Generic Name Dose Route Start Last Admin Trade Name Freq PRN Reason Stop Dose Admin Amlodipine Besylate 10 mg 12/20/24 09:00 12/23/24 08:31 Amlodipine Besylate 10 Mg Tablet PO 10 mg DAILY PAYAM Administration Protocol Atorvastatin Calcium 80 mg 12/20/24 09:00 12/23/24 08:31 Atorvastatin Calcium 80 Mg Tablet PO 80 mg DAILY PAYAM Administration Bupropion HCl 300 mg 12/19/24 20:00 12/23/24 08:31 Bupropion Hcl Xl 300 Mg Tab.Er.24h PO 300 mg DAILY PAYAM Administration Ezetimibe 10 mg 12/20/24 09:00 12/23/24 08:47 Ezetimibe 10 Mg Tablet PO 10 mg DAILY PAYAM Administration Escitalopram Oxalate 20 mg 12/19/24 21:00 12/22/24 20:42 Escitalopram Oxalate 20 Mg Tablet PO 20 mg BEDTIME PAYAM Administration Fenofibrate 160 mg 12/20/24 09:00 12/23/24 08:30 Fenofibrate 160 Mg Tablet PO 160 mg DAILY PAYAM Administration Hydroxyzine HCl 25 mg 12/20/24 13:56 12/23/24 08:36 Hydroxyzine Hcl 25 Mg Tablet PO 25 mg Q6H PRN Administration mild anxiety Lorazepam 1 mg 12/20/24 17:21 12/22/24 20:42 Lorazepam 1 Mg Tablet PO 1 mg Q2H PRN Administration CIWA 8-11 Lorazepam 2 mg 12/20/24 17:21 12/23/24 08:36 Lorazepam 1 Mg Tablet PO 2 mg Q2H PRN Administration [facility] 12-15 Lurasidone HCl 40 mg 12/19/24 21:00 12/22/24 20:42 Lurasidone Hcl 40 Mg Tablet PO 40 mg BEDTIME PAYAM Administration Naltrexone HCl 50 mg 12/20/24 09:00 12/23/24 08:31 Naltrexone Hcl 50 Mg Tablet PO 50 mg DAILY PAYAM Administration Thiamine HCl 100 mg 12/20/24 17:30 12/23/24 08:31 Thiamine Hcl 100 Mg Tablet PO 100 mg DAILY PAYAM Administration Topiramate 50 mg 12/19/24 21:00 12/22/24 20:40 Topiramate 25 Mg Tablet PO 50 mg BEDTIME PAYAM Administration Trazodone HCl 100 mg 12/19/24 21:00 12/22/24 20:42 Trazodone Hcl 100 Mg Tablet PO 100 mg BEDTIME PAYAM Administration Discontinued Medications Generic Name Dose Route Start Last Admin Trade Name Jordan PRN Reason Stop Dose Admin Metformin HCl 500 mg 12/20/24 09:00 12/23/24 08:31 Metformin Hcl Er 500 Mg Tab.Er.24h PO 500 mg DAILY PAYAM Administration Medical Decision Making Medical Decision Making [facility] Narrative: Patient is a 64 year old assigned male at with a history of MDD and ANDREW receiving transcranial magnetic stimulation (TMS) on an outpatient basis presenting to the emergency department today with increased depression. Patient's physical exam was as noted in the physical exam portion of this note. Patient's blood work showed chronically elevated LFTs (AST 206 / ALT 182) - likely secondary to alcohol use, and an ethyl alcohol level of 127. I explained my physical exam findings as well as all test results to the patient. I answered all questions asked by the patient. Patient placed in observation pending CARE team evaluation at 1310. Patient's disposition will be determined after CARE Team evaluation. Differential Diagnosis Differential Diagnoses: The differential diagnosis associated with the presentation includes Depression Worsening depression Alcohol intoxication Admission/Observation Consideration of admission/observation: Escalation of care including admission/observation considered Patient's disposition will be determined after CARE Team evaluation. Lab Data [facility] Lab Attestation statement: I reviewed the patient's lab results. My interpretation of these results are in the MDM Rationale portion of this note. 12/19/24 13:34 08 07:31 Labs: Lab Results 12/19/24 12/19/24 Range/Units 13:34 16:58 WBC 7.4 (4.8-10.8) X10*3/uL RBC 5.07 (4.60-5.80) X10*6/uL Hgb 16.1 (14.0-18.0) g/dl Hct 44.1 (42.0-52.0) % MCV 87.0 (80.0-98.0) fL MCH 31.8 (27.0-33.0) pg MCHC 36.5 H (31.0-36.0) g/dl RDW 13.3 (11.0-16.0) % Plt Count 212 (160-400) X10*3/uL MPV 8.9 L (9.4-12.4) fL Immature Gran % (Auto) 0.9 H (0.0-0.4) % Neut % (Auto) 52.0 (45-73) % Lymph % (Auto) 36.7 (20-40) % [place] % (Auto) 8.3 (2-11) % Eos % (Auto) 1.4 (0-4) % Baso % (Auto) 0.7 (0-2) % Lymph # (Auto) 2.7 (1.2-4.9) X10*3/uL [place] # (Auto) 0.6 (0.1-1.2) X10*3/uL Eos # (Auto) 0.1 (0.0-0.4) X10*3/uL Baso # (Auto) 0.1 (0.0-0.2) X10*3/uL Abs Immat Gran (auto) 0.07 H (0.00-0.03) X10*3/uL Absolute Neuts (auto) 3.8 (2.0-8.3) x10*3/uL Absolute Nucleated RBC 0.000 (0.0-0.012) X10*3/uL Nucleated RBC % (auto) 0.0 (0.0-0.2) /100WBC Sodium 141 (135-145) mmol/L Potassium 3.5 (3.3-5.1) mmol/L Chloride 106 (96-108) mmol/L Carbon Dioxide 22 (22-29) mmol/L Anion Gap 17 (12-20) BUN 11 (9-16) mg/dL Creatinine 0.92 (0.5-1.4) mg/dL Estim Creat Clear Calc 95.3 Estimated GFR > 60 Random Glucose 90 (60-115) mg/dL Calcium 8.6 (8.4-10.2) mg/dL Magnesium 1.8 (1.6-2.6) mg/dL Total Bilirubin 0.9 (0.0-1.0) mg/dL AST 206 H (5-37) U/L ALT 182 H (0-40) U/L Alkaline Phosphatase 109 (39-117) U/L Total Protein 7.0 (6.5-8.0) g/dL Albumin 4.4 (3.5-5.0) g/dL TSH 1.59 (0.32-4.0) uIU/mL Urine Color Dark Yellow Urine Appearance Clear Urine pH 6.5 (5.0-9.0) Ur Specific [place] 1.020 (1.005-1.025) Urine Protein Trace (Neg-Trace) mg/dL Urine Glucose (UA) Negative (Negative) mg/dL Urine Ketones Trace (Negative) mg/dL Urine Blood Negative (Negative) Urine Nitrite Negative (Negative) Ur Leukocyte Esterase Small (1+) H (Negative) Urine RBC 0-2 (0-2) /HPF Urine WBC 6-10 H (0-5) /HPF Ur Squamous Epith Cells 3-5 (0-2) /HPF Urine Bacteria None Seen (None Seen) Hyaline Casts 3-5 (0-2) /LPF Salicylates < 5.0 L (15-30) mg/dL Urine Opiates Screen Not Detected (Not Detect) Ur Buprenorphine Scrn Not Detected (Not Detect) ng/mL Ur Oxycodone Screen Not Detected (Not Detect) ng/mL Urine Methadone Screen Not Detected (Not Detect) ng/mL Urine Fentanyl Screen Not Detected (Not Detect) Acetaminophen < 3 (<30) mcg/mL Ur Barbiturates Screen Not Detected (Not Detect) Ur Phencyclidine Scrn Not Detected (Not Detect) Ur Amphetamines Screen Not Detected (Not Detect) U Benzodiazepines Scrn Not Detected (Not Detect) Urine Cocaine Screen Not Detected (Not Detect) U Marijuana (THC) Screen Not Detected (Not Detect) Ethyl Alcohol 127 mg/dL Independent Interpretation I performed an independent interpretation of an: EKG Interpretation: I independently interpreted this EKG and am in agreement with the below findings: Vent. Rate: 77 BPM Atrial Rate: 77 BPM P-R Int: 180 ms QRS Dur: 104 ms QT Int: 408 ms P-R-T Axes: 68 67 80 degrees QTcB Int: 461 ms Normal sinus rhythm Normal ECG No previous ECGs available DD/ 1608 Discharge Plan Discharge Clinical Impression: Alcohol use, Elevated LFTs Depression Qualifiers: Depression Type: unspecified Qualified Code(s): F32.A - Depression, unspecified Patient Disposition: Admitted As Inpatient Discharge Date/Time: 12/20/24 15:42
[2024-12-19 13:09] VITALS: BP 128/85; PULSE 83; RESP 18; TEMP 36.2; O2SAT 97; BMI 34.3
[2024-12-19 13:39] LABS: MANUAL DIFF FLAG NO
[2024-12-19 13:40] LABS: Hematocrit 44.1 % (42.0-52.0); Hemoglobin 16.1 g/dl (14.0-18.0); Imm Gran Abs Auto 0.07 X10*3/uL (0.00-0.03); Imm Gran Pct Auto 0.9 % (0.0-0.4); Lymphocytes Absolute Auto 2.7 X10*3/uL (1.2-4.9); Mean Corpuscular HGB Conc 36.5 g/dl (31.0-36.0); Mean Corpuscular Hemoglobin 31.8 pg (27.0-33.0); Mean Corpuscular Volume 87.0 fL (80.0-98.0); NRBC Abs Auto 0.000 X10*3/uL (0.0-0.012); NRBC Pct Auto 0.0 /100WBC (0.0-0.2); Platelet Count 212 X10*3/uL (160-400); Red Blood Count 5.07 X10*6/uL (4.60-5.80); White Blood Count 7.4 X10*3/uL (4.8-10.8)
--- NOTE | 2024-12-19 13:41 | ECG_ITS ---
Test Reason : r/o prolonged qt Blood Pressure : */* mmHG Vent. Rate : 77 BPM Atrial Rate : 77 BPM P-R Int : 180 ms QRS Dur : 104 ms QT Int : 408 ms P-R-T Axes : 68 67 80 degrees QTcB Int : 461 ms Normal sinus rhythm Normal ECG No previous ECGs available Referred By: Tamanna Levine Electronically Signed By: CHUCK HENDRICKSON MD
[2024-12-19 13:55] LABS: Alanine Aminotransferase 182 U/L (0-40); Albumin Level 4.4 g/dL (3.5-5.0); Alkaline Phosphatase 109 U/L (39-117); Anion Gap 17 (12-20); Aspartate Amino Transferase 206 U/L (5-37); Blood Urea Nitrogen 11 mg/dL (9-16); Calcium 8.6 mg/dL (8.4-10.2); Carbon Dioxide 22 mmol/L (22-29); Chloride 106 mmol/L (96-108); Creatinine Clr Calc Pharmacy 95.3; Estimated Glomerular Filt Rate > 60; Magnesium 1.8 mg/dL (1.6-2.6); Potassium 3.5 mmol/L (3.3-5.1); Sodium 141 mmol/L (135-145); Total Protein 7.0 g/dL (6.5-8.0)
[2024-12-19 13:58] LABS: Acetaminophen LAB < 3 mcg/mL (<30); Salicylate < 5.0 mg/dL (15-30)
--- OUTSIDE RECORDS SUMMARY | 2024-12-19 14:46 | XMS_ITS | Clinical Summary ---
Author Organization [facility], Address [address] [facility] [place] [address] Phone Care Team Providers Care Eap Counselor Name Role Phone Deena Rojo NP Primary Care Provider Allergies Active Allergy Reactions Criticality Noted Date Comments Bupropion 03/24/2021 [place] 03/24/2021 Paroxetine 03/24/2021 Venlafaxine 03/24/2021 Medications ARIPiprazole [...] complete [place] [id number] [facility] Care Teams Eap Counselor Relationship Specialty Start Date End Date Deena Rojo NP [address] [place] [address] PCP - General Nurse Practitioner 03/24/21
[2024-12-19 17:10] LABS: Appearance Urine Clear; Glucose Urine UA Negative (Negative); PH 6.5 (5.0-9.0); Specific Gravity - Urine 1.020 (1.005-1.025); UMIC TRIGGER UACC YES
[2024-12-19 17:21] LABS: UACC Culture Trigger YES
[2024-12-19 17:25] LABS: Cannabinoid Screen Urine Not Detected (Not Detect)
--- NOTE | 2024-12-19 18:21 | MHC.CARE ---
Patient evaluated by the CARE Team, disposition inpatient psychiatric treatment. ED provider Tamanna Levine updated with plan.
--- NOTE | 2024-12-19 18:25 | PC.NURSE ---
Fro home with complaints of worsening depression. Was told by provider to come to ED for inpatient admission. Calm and cooperative, spoke with on the phone. Denies SI/HI
--- NOTE | 2024-12-19 19:25 | PC.NURSE ---
Assumed care of patient at 1845, patient calm and cooperative, offering no complaints to this RN. Continue plan of care for [facility]
[2024-12-19] MEDS: buPROPion HCl XL 300 MG TAB.ER.24H PO (20:05)
--- NOTE | 2024-12-19 23:55 | PC.NURSE ---
pt sleeping at this time.
[2024-12-20 06:33] VITALS: BP 137/77; PULSE 77; RESP 17; TEMP 36.8; O2SAT 99
--- NOTE | 2024-12-20 07:10 | PC.NURSE ---
Patient is a 64 year old with a history of MDD and ANDREW receiving transcranial magnetic stimulation (TMS) on an outpatient basis presenting to the emergency department today with increased depression from Dr. Spencer's office. Patient's blood work showed chronically elevated LFTs (AST 206 / ALT 182) - likely secondary to alcohol use, and an ethyl alcohol level of 127. Patient evaluated by the CARE team and recommend [facility].
[2024-12-20] MEDS: buPROPion HCl XL 300 MG TAB.ER.24H PO (09:51)
--- NOTE | 2024-12-20 11:11 | PHA.MEDREC ---
Addendum entered by Nesha Green RPh 12/20/24 12:28: Reviewed by [facility] Original Note: Pharmacy Consult ? Medication Reconciliation Pharmacy has reviewed the medication reconciliation done by nursing. Claims match med list.
--- NOTE | 2024-12-20 15:00 | PC.NURSE ---
Report given to in-patient behavioral health unit. Pending transfer.
[2024-12-20 16:11] VITALS: BMI 34.3
[2024-12-20 16:12] VITALS: BP 136/75; PULSE 89; RESP 18; TEMP 36.2; O2SAT 96
--- NOTE | 2024-12-20 16:16 | PC.NURSE ---
Pt admitted to [facility] at 1541 from [facility] for treatment of depression. Pt signed a CV with provider on arrival to unit. Pt was cooperative with safety/skin check. Skin check remarkable for healing scabs on bilateral upper and lower extremities. VS obtained. Fluids and toiletries provided. Pt oriented to unit, room, and given menu to complete. Admission and admission note to be completed by assigned nurse.
--- NOTE | 2024-12-20 18:40 | PC.ADMIT ---
Addendum entered by Jacinto Robles RN 12/20/24 19:19: Apparently pt arrived to the unit at 15:40, however t/w took over at 16:30. Original Note: Pt is a 64-year-old male who arrived to ~16:30 on a CV from the Pod for the treatment of treatment-resistant depression with SI (currently denies SI). Pt has a hx of alcohol use disorder with multiple prior hospitalizations inpatient psych and detox. Precipitants of this admission include increased symptoms of depression such as sleeping 22 hours daily, not showering, not engaged. Pt rates depression and anxiety 02/28. He denies SI/HI/AH/VH currently. He is on CIWA for alcohol withdrawals. Upon admission pt is tremulous and anxious but not diaphoretic and denying withdrawal symptoms. Pt minimizes his drinking and mental health issues . He has had 2 prior suicide attempts which he also minimizes I was blackout drunk . He is a [facility] patient who reportedly has tried multiple treatments and every antidepressant with poor effect. Pt signed all ROIs however pt noted: He does NOT want his spouse knowing anything in regards to his alcohol use.
[2024-12-20 20:00] VITALS: BP 125/63; PULSE 80; RESP 15; TEMP 36.2; O2SAT 96
[2024-12-21 08:00] VITALS: BP 134/82; PULSE 79; RESP 18; TEMP 36.1; O2SAT 96
[2024-12-21 08:01] LABS: Alanine Aminotransferase 115 U/L (0-40); Albumin Level 4.2 g/dL (3.5-5.0); Alkaline Phosphatase 95 U/L (39-117); Anion Gap 14 (12-20); Aspartate Amino Transferase 122 U/L (5-37); Blood Urea Nitrogen 10 mg/dL (9-16); Calcium 9.1 mg/dL (8.4-10.2); Carbon Dioxide 24 mmol/L (22-29); Chloride 107 mmol/L (96-108); Cholesterol 141 mg/dL (<200); Creatinine Clr Calc Pharmacy 89.4; Estimated Glomerular Filt Rate > 60; HDL Cholesterol 45 mg/dL (>40); Potassium 3.9 mmol/L (3.3-5.1); Sodium 141 mmol/L (135-145); Total Protein 6.5 g/dL (6.5-8.0); Triglycerides 217 mg/dL (<150)
--- NOTE | 2024-12-21 08:50 | HO.PSYADMNOT ---
HPI Date of Service: 12/21/24 Chief Complaint: depression Sources of Information: patient interviewed, chart reviewed and crisis/core team assessment reviewed HPI Subjective Notes: Conditional Voluntary Healthcare Proxy: No Guardianship: No Medical Problems Affecting Mental Status: No Narrative: 64 yo MWM with worsening depression - hx TRD and getting TMS here to start ECT for ongoing depressive sys not responding to treatment as usual - ongoing depression, hopeless/helpless feelings- no active si , last SA was 12 year ago when he Christian while blacked out on alcohol. Also rates high anxiety- staying in bed 22 hrs/day- xs sleep, no energy- Hx trying multiple antidepressants Reports decreased appetite, weight , energy , anehdonia severe , and feelings of guilt- Past Psychiatric History: denies prior psychiatric hospitalization? last suicide attempt 12 years ago Medical Evaluation Reviewed: Yes medical clear for psychiatric admission [facility] Medical History Fatigue Family History: lives with , has 3 adult children and 4 grandchildren; retired from [employer] in 2020 Social History: family is supportive; Substance History: alcohol 2 nips /day doesn't want his to know Trauma History: yes childhood Diagnostics Vital Signs (24Hr): Vital Signs - 24 hr 12/20/24 16:12 12/20/24 20:00 12/21/24 08:00 Temperature 97.1 F 97.2 F 97.0 F Pulse Rate 89 80 79 Respiratory Rate 18 15 18 Blood Pressure 136/75 125/63 134/82 Pulse Oximetry 96 96 96 Oxygen Delivery Method Room Air Room Air BMI result Body Mass Index 34.3 Labs 12/19/24 13:34 12/21/24 07:31 Labs: Laboratory Results - last 48 hr 12/19/24 12/19/24 12/21/24 13:34 16:58 07:31 WBC 7.4 RBC 5.07 Hgb 16.1 Hct 44.1 MCV 87.0 MCH 31.8 MCHC 36.5 H RDW 13.3 Plt Count 212 MPV 8.9 L Immature Gran % (Auto) 0.9 H Neut % (Auto) 52.0 Lymph % (Auto) 36.7 Roane % (Auto) 8.3 Eos % (Auto) 1.4 Baso % (Auto) 0.7 Lymph # (Auto) 2.7 Roane # (Auto) 0.6 Eos # (Auto) 0.1 Baso # (Auto) 0.1 Abs Immat Gran (auto) 0.07 H Absolute Neuts (auto) 3.8 Absolute Nucleated RBC 0.000 Nucleated RBC % (auto) 0.0 Sodium 141 141 Potassium 3.5 3.9 Chloride 106 107 Carbon Dioxide 22 24 Anion Gap 17 14 BUN 11 10 Creatinine 0.92 0.98 Estim Creat Clear Calc 95.3 89.4 Estimated GFR > 60 > 60 Random Glucose 90 107 Calcium 8.6 9.1 Magnesium 1.8 Total Bilirubin 0.9 1.2 H AST 206 H 122 H ALT 182 H 115 H Alkaline Phosphatase 109 95 Total Protein 7.0 6.5 Albumin 4.4 4.2 Triglycerides 217 H Cholesterol 141 LDL Cholesterol, Calc 53 HDL Cholesterol 45 TSH 1.59 2.23 Urine Color Dark Yellow Urine Appearance Clear Urine pH 6.5 Ur Specific Grady 1.020 Urine Protein Trace Urine Glucose (UA) Negative Urine Ketones Trace Urine Blood Negative Urine Nitrite Negative Ur Leukocyte Esterase Small (1+) H Urine RBC 0-2 Urine WBC 6-10 H Ur Squamous Epith Cells 3-5 Urine Bacteria None Seen Hyaline Casts 3-5 Salicylates < 5.0 L Urine Opiates Screen Not Detected Ur Buprenorphine Scrn Not Detected Ur Oxycodone Screen Not Detected Urine Methadone Screen Not Detected Urine Fentanyl Screen Not Detected Acetaminophen < 3 Ur Barbiturates Screen Not Detected Ur Phencyclidine Scrn Not Detected Ur Amphetamines Screen Not Detected U Benzodiazepines Scrn Not Detected Urine Cocaine Screen Not Detected U Marijuana (THC) Screen Not Detected Ethyl Alcohol 127 Meds/Allergies Meds Home Medications ?Medication ?Instructions ?Recorded ?Confirmed ?Type amlodipine 10 mg tablet 10 mg PO DAILY 12/19/24 12/19/24 History bupropion HCl 300 mg 24 hr tablet, 300 mg PO QAM 12/19/24 12/19/24 History extended release escitalopram oxalate 20 mg tablet 20 mg PO BEDTIME 12/19/24 12/19/24 History ezetimibe 10 mg tablet 10 mg PO DAILY 12/19/24 12/19/24 History fenofibrate 160 mg tablet 160 mg PO DAILY 12/19/24 12/19/24 History lurasidone 40 mg tablet 40 mg PO QPM 12/19/24 12/19/24 History metformin 500 mg tablet,extended 500 mg PO DAILY 12/19/24 12/19/24 History release 24 hr naltrexone 50 mg tablet 50 mg PO DAILY 12/19/24 12/19/24 History omega-3 acid ethyl esters 1 gram 2 cap PO BID 12/19/24 12/19/24 History capsule rosuvastatin 20 mg tablet 20 mg PO DAILY 12/19/24 12/19/24 History topiramate 50 mg tablet 50 mg PO BEDTIME 12/19/24 12/19/24 History trazodone 100 mg tablet 100 mg PO BEDTIME 12/19/24 12/19/24 History Allergies Allergies Allergy/AdvReac Type Severity Reaction Status Date / Time No Known Allergies Allergy Verified 12/19/24 13:11 Mental Status Exam Mental Status Exam Patient Appearance: Appropriate Patient Orientation: Person, Place, Time and Situation Level of Consciousness: Awake and Alert Patient Behavior: Cooperative, Passive and Poor Eye Contact Mood Description: Constricted and Sad Affect Description: Flat Patient Cognition Impaired: No Ability to Follow Directions: Fair Speech Pattern: Clear and Impoverished Hallucinations: None Delusions: Not Present Thought Process: Intact and Goal Oriented Depressive Symptoms: Increased Anxiety, Sleeping More Than Usual, Hopelessness, Feelings of Guilt, Increased Fatigue, Loss of Energy and Difficulty Concentrating Judgement: Fair Assessment & Plan Assessment & Plan (1) Major depressive disorder, recurrent severe without psychotic features: Status: Acute Code(s): F33.2 - Major depressive disorder, recurrent severe without psychotic features (2) ANDREW (generalized anxiety disorder): Status: Acute Code(s): F41.1 - Generalized anxiety disorder (3) Alcohol use: Status: Acute Code(s): F10.90 - Alcohol use, unspecified, uncomplicated Plan Admission for possible ECT Patient educated on: diagnosis and ECT Informed Consent: understands Reason for continued inpatient stay Substantial Risk for: inability to function and rapid decompensation Statement Statement: I have reviewed the history and physical and performed a pertinent examination on my patient. No changes have occurred unless specified. If the History and Physical was not performed prior to admission, the Hospitalist's service will be consulted for completing the admission physical. Time Spent With Patient Time: Total time managing care of this patient today ____ minutes.
[2024-12-21] MEDS: buPROPion HCl XL 300 MG TAB.ER.24H PO (08:59)
[2024-12-21 09:33] LABS: Hemoglobin A1C 109.3712 umol/L; Total Hemoglobin (HGBA1C) 3857.5887 umol/L
[2024-12-21 20:00] VITALS: BP 126/69; PULSE 82; RESP 15; TEMP 35.9; O2SAT 97
[2024-12-22 08:00] VITALS: BP 119/80; PULSE 83; RESP 18; TEMP 35.6; O2SAT 98
[2024-12-22] MEDS: buPROPion HCl XL 300 MG TAB.ER.24H PO (08:20)
--- NOTE | 2024-12-22 12:07 | P.PNPSI_ITS ---
Subjective Subjective Date of Service: 12/22/24 Reason For Visit: depression Subjective Notes: Conditional Voluntary Healthcare Proxy: No Guardianship: No Medical Problems Affecting Mental Status: No Interim History: 64 yo with TRD admitted with continued depression, xs sleep/fatigue, and feeling hopelessness- for potential ECT will need medical clearance to start trial- pt reports no different today nursing report isolating in room, sleeping most of day Medication Compliance: Yes Side effects from medications: No Attending Groups: No Review of Systems Acute medical concerns: No Medical Review of Systems: unchanged Mental Status Exam Mental Status Exam Patient Appearance: Appropriate and Unkempt Patient Orientation: Person, Place, Time and Situation Level of Consciousness: Awake and Alert Patient Behavior: Passive and Isolative Mood Description: Withdrawn Affect Description: Sad Patient Cognition Impaired: No Ability to Follow Directions: Fair Speech Pattern: Clear Hallucinations: None Delusions: Not Present Thought Process: Intact and Goal Oriented Depressive Symptoms: Sleeping More Than Usual, Feelings of Worthlessness, Hopelessness, Unhappiness and Loss of Energy Judgement: Fair Diagnostics Vital Signs (24Hr): Vital Signs - 24 hr 12/21/24 20:00 12/22/24 08:00 Temperature 96.7 F L 96.1 F L Pulse Rate 82 83 Respiratory Rate 15 18 Blood Pressure 126/69 119/80 Pulse Oximetry 97 98 Oxygen Delivery Method Room Air BMI result Body Mass Index 34.3 Labs 12/19/24 13:34 12/21/24 07:31 Labs: Laboratory Results - last 48 hr 12/21/24 07:31 Sodium 141 Potassium 3.9 Chloride 107 Carbon Dioxide 24 Anion Gap 14 BUN 10 Creatinine 0.98 Estim Creat Clear Calc 89.4 Estimated GFR > 60 Random Glucose 107 Estimat Average Glucose 88 Hemoglobin A1c % 4.7 Calcium 9.1 Total Bilirubin 1.2 H AST 122 H ALT 115 H Alkaline Phosphatase 95 Total Protein 6.5 Albumin 4.2 Triglycerides 217 H Cholesterol 141 LDL Cholesterol, Calc 53 HDL Cholesterol 45 TSH 2.23 Medications Medications Current Medications Acetaminophen (Acetaminophen 325 Mg Tablet) 650 mg PO Q6H PRN PRN Reason: Headache/Pain, Scale 1-10 Al Hydroxide/Mg Hydroxide (Magnesium Hydrox/Alum Hydrox 30 Ml Oral.Susp) 30 ml PO Q6H PRN PRN Reason: Heartburn/Nausea Amlodipine Besylate (Amlodipine Besylate 10 Mg Tablet) 10 mg PO DAILY PAY[facility]; Protocol Last Admin: 12/22/24 08:18 Dose: 10 mg Atorvastatin Calcium (Atorvastatin Calcium 80 Mg Tablet) 80 mg PO DAILY [facility] Last Admin: 12/22/24 08:20 Dose: 80 mg Bupropion HCl (Bupropion Hcl Xl 300 Mg Tab.Er.24h) 300 mg PO DAILY [facility] Last Admin: 12/22/24 08:20 Dose: 300 mg Ezetimibe (Ezetimibe 10 Mg Tablet) 10 mg PO DAILY [facility] Last Admin: 12/22/24 08:19 Dose: 10 mg Escitalopram Oxalate (Escitalopram Oxalate 20 Mg Tablet) 20 mg PO BEDTIME [facility] Last Admin: 12/21/24 20:59 Dose: 20 mg Fenofibrate (Fenofibrate 160 Mg Tablet) 160 mg PO DAILY [facility] Last Admin: 12/22/24 08:19 Dose: 160 mg Hydroxyzine HCl (Hydroxyzine Hcl 25 Mg Tablet) 25 mg PO Q6H PRN PRN Reason: mild anxiety Last Admin: 12/22/24 08:45 Dose: 25 mg Lorazepam (Lorazepam 1 Mg Tablet) 1 mg PO Q2H PRN PRN Reason: CIWA 8-11 Last Admin: 12/22/24 08:45 Dose: 1 mg Lorazepam (Lorazepam 1 Mg Tablet) 2 mg PO Q2H PRN PRN Reason: CIWA 12-15 Lurasidone HCl (Lurasidone Hcl 40 Mg Tablet) 40 mg PO BEDTIME [facility] Last Admin: 12/21/24 20:59 Dose: 40 mg Magnesium Hydroxide (Milk Of Magnesia 30 Ml Oral.Susp) 30 ml PO DAILY PRN PRN Reason: Constipation Metformin HCl (Metformin Hcl Er 500 Mg Tab.Er.24h) 500 mg PO DAILY [facility] Last Admin: 12/22/24 08:19 Dose: 500 mg Naltrexone HCl (Naltrexone Hcl 50 Mg Tablet) 50 mg PO DAILY [facility] Last Admin: 12/22/24 08:20 Dose: 50 mg Nicotine (Nicotine 21 Mg Patch.Td24) 21 mg TRANSDERMA DAILY PRN PRN Reason: smoking cessation Nicotine Polacrilex (Nicotine Polacrilex 2 Mg Gum) 4 mg BUCCAL Q2H PRN PRN Reason: Nicotine Cravings Thiamine HCl (Thiamine Hcl 100 Mg Tablet) 100 mg PO DAILY [facility] Last Admin: 12/22/24 08:19 Dose: 100 mg Topiramate (Topiramate 25 Mg Tablet) 50 mg PO BEDTIME [facility] Last Admin: 12/21/24 20:58 Dose: 50 mg Trazodone HCl (Trazodone Hcl 100 Mg Tablet) 100 mg PO BEDTIME [facility] Last Admin: 12/21/24 20:59 Dose: 100 mg Trazodone HCl (Trazodone Hcl 50 Mg Tablet) 50 mg PO BEDTIME [id number] PRN PRN Reason: Insomnia Allergies Allergies Allergy/AdvReac Type Severity Reaction Status Date / Time No Known Allergies Allergy Verified 12/19/24 13:11 Assessment & Plan Assessment & Plan (1) Major depressive disorder, recurrent severe without psychotic features: Status: Acute Code(s): F33.2 - Major depressive disorder, recurrent severe without psychotic features (2) ANDREW (generalized anxiety disorder): Status: Acute Code(s): F41.1 - Generalized anxiety disorder (3) Alcohol use: Status: Acute Code(s): F10.90 - Alcohol use, unspecified, uncomplicated Plan Admission for possible ECT Patient educated on: ECT (need for medical clearnace) Informed Consent: understands Reason for continued inpatient stay Substantial Risk for: inability to function and rapid decompensation Time Spent With Patient Time: Total time managing care of this patient today ____ minutes.
--- NOTE | 2024-12-22 17:22 | MHC.RECOVRN ---
Met w/ pt to discuss etoh consumption and provide recovery support. Pt stated that due to his depression has started drinking again 2-3 nips a day. Upon admission pt was denying using etoh despite significant BAL level and visible tremors noted. It was then found out pt does not want this disclosed to his , staff was made aware + note was made on [facility] form. Pt is already on naltrexone, has been to treatment for ATS in the past, now is focusing on his mental health and depression. Written materials provided on [facility], the [facility], and list of CSS, however pt currently not interested in AUD treatment. Pt also declined outpatient appointment for treatment of his AUD. Pt provided with ACS team contact info for any questions or concerns that arise. All recovery needs have been met at this time.
[2024-12-22 20:00] VITALS: BP 119/77; PULSE 73; RESP 15; TEMP 35.6; O2SAT 97
[2024-12-23 08:00] VITALS: BP 136/79; PULSE 76; RESP 18; TEMP 36.4; O2SAT 98
[2024-12-23 08:31] VITALS: BP 136/79
[2024-12-23] MEDS: buPROPion HCl XL 300 MG TAB.ER.24H PO (08:31)
--- NOTE | 2024-12-23 09:57 | P.PNPSI_ITS ---
Subjective Subjective Date of Service: 12/23/24 Reason For Visit: depression Interim History: Met with patient; discussed with team; reviewed chart Patient reports depression/anxiety for years; Patient says lots of med trials, including TMS; Reports history therapy but not consistent restarted drinking 2 weeks ago after 2 years sober; says only 2 nips a day. Initially said he was not drinking at all but patient explains this because his was present and he did not want her to know he relapsed Discussed with patient ECT, risks/side effects and treatment plan; patient eager to embark. Also discussed medication management and he has been on Wellbutrin and Latuda current doses for 2 years and agrees to increase Mental Status Exam Mental Status Exam Narrative: Pt is alert and oriented; behavior is superficially cooperative, calm but does not say much; isolative spending most of the time in bed; patient is not in distress; dressed in casual attire, scruffy marginal hygiene; mood is described as depressed and affect congruent, downcast; eye contact appropriate; Speech is sparse, slowed, soft; significant psychomotor retardation present; thought process is goal directed, concrete; Thought content is on tx and otherwise not disclose; no delusional ideations expressed; denies any SI/HI. Denies AVH and there is no evidence of perceptual disturbance. Patients insight and judgment impaired. Diagnostics Vital Signs (24Hr): Vital Signs - 24 hr 12/22/24 20:00 12/23/24 08:00 12/23/24 08:31 Temperature 96.1 F L 97.6 F Pulse Rate 73 76 Respiratory Rate 15 18 Blood Pressure 119/77 136/79 136/79 Pulse Oximetry 97 98 BMI result Body Mass Index 34.3 Labs 12/19/24 13:34 12/21/24 07:31 Medications Medications Current Medications Acetaminophen (Acetaminophen 325 Mg Tablet) 650 mg PO Q6H PRN PRN Reason: Headache/Pain, Scale 1-10 Al Hydroxide/Mg Hydroxide (Magnesium Hydrox/Alum Hydrox 30 Ml Oral.Susp) 30 ml PO Q6H PRN PRN Reason: Heartburn/Nausea Amlodipine Besylate (Amlodipine Besylate 10 Mg Tablet) 10 mg PO DAILY PAYAM; Protocol Last Admin: 12/23/24 08:31 Dose: 10 mg Atorvastatin Calcium (Atorvastatin Calcium 80 Mg Tablet) 80 mg PO DAILY [facility] Last Admin: 12/23/24 08:31 Dose: 80 mg Bupropion HCl (Bupropion Hcl Xl 300 Mg Tab.Er.24h) 300 mg PO DAILY [facility] Last Admin: 12/23/24 08:31 Dose: 300 mg Ezetimibe (Ezetimibe 10 Mg Tablet) 10 mg PO DAILY [facility] Last Admin: 12/23/24 08:47 Dose: 10 mg Escitalopram Oxalate (Escitalopram Oxalate 20 Mg Tablet) 20 mg PO BEDTIME [facility] Last Admin: 12/22/24 20:42 Dose: 20 mg Fenofibrate (Fenofibrate 160 Mg Tablet) 160 mg PO DAILY [facility] Last Admin: 12/23/24 08:30 Dose: 160 mg Hydroxyzine HCl (Hydroxyzine Hcl 25 Mg Tablet) 25 mg PO Q6H PRN PRN Reason: mild anxiety Last Admin: 12/23/24 08:36 Dose: 25 mg Lorazepam (Lorazepam 1 Mg Tablet) 1 mg PO Q2H PRN PRN Reason: CIWA 8-11 Last Admin: 12/22/24 20:42 Dose: 1 mg Lorazepam (Lorazepam 1 Mg Tablet) 2 mg PO Q2H PRN PRN Reason: CIWA 12-15 Last Admin: 12/23/24 08:36 Dose: 2 mg Lurasidone HCl (Lurasidone Hcl 40 Mg Tablet) 40 mg PO BEDTIME [facility] Last Admin: 12/22/24 20:42 Dose: 40 mg Magnesium Hydroxide (Milk Of Magnesia 30 Ml Oral.Susp) 30 ml PO DAILY PRN PRN Reason: Constipation Metformin HCl (Metformin Hcl Er 500 Mg Tab.Er.24h) 500 mg PO DAILY [facility] Last Admin: 12/23/24 08:31 Dose: 500 mg Naltrexone HCl (Naltrexone Hcl 50 Mg Tablet) 50 mg PO DAILY [facility] Last Admin: 12/23/24 08:31 Dose: 50 mg Nicotine (Nicotine 21 Mg Patch.Td24) 21 mg TRANSDERMA DAILY PRN PRN Reason: smoking cessation Nicotine Polacrilex (Nicotine Polacrilex 2 Mg Gum) 4 mg BUCCAL Q2H PRN PRN Reason: Nicotine Cravings Thiamine HCl (Thiamine Hcl 100 Mg Tablet) 100 mg PO DAILY [facility] Last Admin: 12/23/24 08:31 Dose: 100 mg Topiramate (Topiramate 25 Mg Tablet) 50 mg PO BEDTIME [facility] Last Admin: 12/22/24 20:40 Dose: 50 mg Trazodone HCl (Trazodone Hcl 100 Mg Tablet) 100 mg PO BEDTIME [facility] Last Admin: 12/22/24 20:42 Dose: 100 mg Trazodone HCl (Trazodone Hcl 50 Mg Tablet) 50 mg PO BEDTIME [id number] PRN PRN Reason: Insomnia Allergies Allergies Allergy/AdvReac Type Severity Reaction Status Date / Time No Known Allergies Allergy Verified 12/19/24 13:11 Assessment & Plan Assessment & Plan (1) Major depressive disorder, recurrent severe without psychotic features: Status: Acute Code(s): F33.2 - Major depressive disorder, recurrent severe without psychotic features (2) ANDREW (generalized anxiety disorder): Status: Acute Code(s): F41.1 - Generalized anxiety disorder (3) Alcohol use: Status: Acute Code(s): F10.90 - Alcohol use, unspecified, uncomplicated Plan HPI: 64 yo MWM with worsening depression - hx TRD and getting TMS here to start ECT for ongoing depressive sys not responding to treatment as usual - ongoing depression, hopeless/helpless feelings- no active si , last SA was 12 year ago when he Christian while blacked out on alcohol. Also rates high anxiety- staying in bed 22 hrs/day- xs sleep, no energy- increased symptoms of depression such as sleeping 22 hours daily, not showering, not engaged; no SI Hx trying multiple antidepressants Reports decreased appetite, weight , energy , anehdonia severe , and feelings of guilt- Past Psychiatric History: denies prior psychiatric hospitalization last suicide attempt 12 years ago; . He has had 2 prior suicide attempts which he says I was blackout drunk . Hospital course: Patient reports depression/anxiety for years; Patient says lots of med trials, including TMS; Reports history therapy but not consistent restarted drinking 2 weeks ago after 2 years sober; says only 2 nips a day. Initially said he was not drinking at all but patient explains this because his was present and he did not want her to know he relapsed Discussed with patient ECT, risks/side effects and treatment plan; patient eager to embark. Also discussed medication management and he has been on Wellbutrin and Latuda current doses for 2 years and agrees to increase. Discussed behavioral activation and patient says he will engage Plan: CV Q 15 minute checks ECT medical review consult placed wellbutrin XL 300mg daily am been on for 2 years; agrees to increase Latuda 40mg daily been on current dose for 2 years; agrees to increase Continue Lexapro 20 mg daily Continue Naltrexone 50mg daily Continue topomax 50mg daily Continue trazodone 100mg bedtime Past med trials: Not sure therapeutic duration and dose; Michael Lamictal [place] Paxil Effexor Risperidone Patient educated on: diagnosis, medication risk/benefits, substance abuse, ECT and therapeutic strategies Informed Consent: understands and further education needed Reason for continued inpatient stay Substantial Risk for: rapid decompensation Time Spent With Patient Time: Total time managing care of this patient today ____ minutes.
--- NOTE | 2024-12-23 10:03 | HO.ECT-CONS ---
History of Present Illness Data of Consult Service Date: 12/23/24 Primary Care Provider: Deena Rojo NP HPI Reason for consult: ECT consult 64-year-old male with a past medical history of major depressive disorder and generalized anxiety disorder , hypertension, hyperlipidemia, type 2 diabetes and history of EtOH use. Patient is receiving transcranial magnetic stimulation as an outpatient and was receiving his treatment at his outpatient psychiatrist appointment, he presented to the ED after his psychiatrist determine that he needs to presented to the ED D with concerns for need for inpatient care due to increased depression. Patient noted to have chronically elevated LFT's likely secondary to EtOH use, positive EtOH on presentation to the ED. since admission his AST is improved to 122 in his ALT improved to 115. No leukocytosis, no anemia, TSH within normal limits. His triglycerides are 217, improved from previous recorded value at [facility] 369. Patient has no history of adverse reactions to anesthesia, his EKG demonstrates normal sinus rhythm with a QTC of 461. Denies any history of brain injury, denies any history of seizures. No active cardiac, pulmonary or neurological contraindications at this time. He denies any shortness of breath, dizziness, lightheadedness or any other concerning symptoms. Review of Systems Review of Systems: Denies any shortness of breath, chest pain, dizziness, lightheadedness, abdominal pain or discomfort, nausea vomiting or diarrhea PMFSH Medical History Fatigue Social History Household Members: Spouse Housing: House Do you presently have visiting nurse or other home services: No Alcohol intake: former Patient Tobacco Use Status: Never used Tobacco Smoked in Last 30 Days: No Use of substances other than those prescribed or required for medical reasons: No Currently Displaying Signs/Symptoms of Drug Intoxication Withdrawal: No Have you been hit, kicked, punched, or otherwise hurt by someone within the past year? If so, by whom?: No Do you feel safe in your current relationship?: No Is there a partner from a previous relationship who is making you feel unsafe now?: No Are you made to feel afraid or neglected: No Spiritual Healthcare Practices: none Adventist Healthcare Practices: none Cultural Healthcare Practices: none Advance Directives: No Advance Directives Information Provided: Yes Do you have thoughts of harming others: None Do you have a plan to hurt others: No Plan Recently lost weight without trying: No How much weight loss: Not applicable Eating poorly because of decreased appetite: No Nutrition screen score: 0 Nutrition Risks: No Nutritional Risk Poor oral hygiene: No Meds Allergies Allergy/AdvReac Type Severity Reaction Status Date / Time No Known Allergies Allergy Verified 12/19/24 13:11 Active Medications: Current Medications Acetaminophen (Acetaminophen 325 Mg Tablet) 650 mg PO Q6H PRN PRN Reason: Headache/Pain, Scale 1-10 Al Hydroxide/Mg Hydroxide (Magnesium Hydrox/Alum Hydrox 30 Ml Oral.Susp) 30 ml PO Q6H PRN PRN Reason: Heartburn/Nausea Amlodipine Besylate (Amlodipine Besylate 10 Mg Tablet) 10 mg PO DAILY [facility]; Protocol Last Admin: 12/23/24 08:31 Dose: 10 mg Atorvastatin Calcium (Atorvastatin Calcium 80 Mg Tablet) 80 mg PO DAILY [facility] Last Admin: 12/23/24 08:31 Dose: 80 mg Bupropion HCl (Bupropion Hcl Xl 300 Mg Tab.Er.24h) 300 mg PO DAILY [facility] Last Admin: 12/23/24 08:31 Dose: 300 mg Ezetimibe (Ezetimibe 10 Mg Tablet) 10 mg PO DAILY [facility] Last Admin: 12/23/24 08:47 Dose: 10 mg Escitalopram Oxalate (Escitalopram Oxalate 20 Mg Tablet) 20 mg PO BEDTIME [facility] Last Admin: 12/22/24 20:42 Dose: 20 mg Fenofibrate (Fenofibrate 160 Mg Tablet) 160 mg PO DAILY [facility] Last Admin: 12/23/24 08:30 Dose: 160 mg Hydroxyzine HCl (Hydroxyzine Hcl 25 Mg Tablet) 25 mg PO Q6H PRN PRN Reason: mild anxiety Last Admin: 12/23/24 08:36 Dose: 25 mg Lorazepam (Lorazepam 1 Mg Tablet) 1 mg PO Q2H PRN PRN Reason: CIWA 8-11 Last Admin: 12/22/24 20:42 Dose: 1 mg Lorazepam (Lorazepam 1 Mg Tablet) 2 mg PO Q2H PRN PRN Reason: CIWA 12-15 Last Admin: 12/23/24 08:36 Dose: 2 mg Lurasidone HCl (Lurasidone Hcl 40 Mg Tablet) 40 mg PO BEDTIME [facility] Last Admin: 12/22/24 20:42 Dose: 40 mg Magnesium Hydroxide (Milk Of Magnesia 30 Ml Oral.Susp) 30 ml PO DAILY PRN PRN Reason: Constipation Metformin HCl (Metformin Hcl Er 500 Mg Tab.Er.24h) 500 mg PO DAILY [facility] Last Admin: 12/23/24 08:31 Dose: 500 mg Naltrexone HCl (Naltrexone Hcl 50 Mg Tablet) 50 mg PO DAILY [facility] Last Admin: 12/23/24 08:31 Dose: 50 mg Nicotine (Nicotine 21 Mg Patch.Td24) 21 mg TRANSDERMA DAILY PRN PRN Reason: smoking cessation Nicotine Polacrilex (Nicotine Polacrilex 2 Mg Gum) 4 mg BUCCAL Q2H PRN PRN Reason: Nicotine Cravings Thiamine HCl (Thiamine Hcl 100 Mg Tablet) 100 mg PO DAILY [facility] Last Admin: 12/23/24 08:31 Dose: 100 mg Topiramate (Topiramate 25 Mg Tablet) 50 mg PO BEDTIME [facility] Last Admin: 12/22/24 20:40 Dose: 50 mg Trazodone HCl (Trazodone Hcl 100 Mg Tablet) 100 mg PO BEDTIME [facility] Last Admin: 12/22/24 20:42 Dose: 100 mg Trazodone HCl (Trazodone Hcl 50 Mg Tablet) 50 mg PO BEDTIME MRX1 PRN PRN Reason: Insomnia Home Medications ?Medication ?Instructions ?Recorded ?Confirmed ?Last Taken ?Type amlodipine 10 mg tablet 10 mg PO DAILY 12/19/24 12/19/24 Unknown History bupropion HCl 300 mg 24 hr tablet, 300 mg PO QAM 12/19/24 12/19/24 Unknown History extended release escitalopram oxalate 20 mg tablet 20 mg PO BEDTIME 12/19/24 12/19/24 Unknown History ezetimibe 10 mg tablet 10 mg PO DAILY 12/19/24 12/19/24 Unknown History fenofibrate 160 mg tablet 160 mg PO DAILY 12/19/24 12/19/24 Unknown History lurasidone 40 mg tablet 40 mg PO QPM 12/19/24 12/19/24 Unknown History metformin 500 mg tablet,extended 500 mg PO DAILY 12/19/24 12/19/24 Unknown History release 24 hr naltrexone 50 mg tablet 50 mg PO DAILY 12/19/24 12/19/24 Unknown History omega-3 acid ethyl esters 1 gram 2 cap PO BID 12/19/24 12/19/24 Unknown History capsule rosuvastatin 20 mg tablet 20 mg PO DAILY 12/19/24 12/19/24 Unknown History topiramate 50 mg tablet 50 mg PO BEDTIME 12/19/24 12/19/24 Unknown History trazodone 100 mg tablet 100 mg PO BEDTIME 12/19/24 12/19/24 Unknown History Physical Exam Vital Signs and Narrative: Vital Signs: Last Vital Signs Temp 97.6 F 12/23/24 08:00 Pulse 76 12/23/24 08:00 Resp 18 12/23/24 08:00 BP 136/79 12/23/24 08:31 Pulse Ox 98 12/23/24 08:00 O2 Del Method Room Air 12/22/24 08:00 BMI result Body Mass Index 34.3 Alert and oriented X3, able to give good history. Flat affect Neuro: CN II-X11 intact, no deficits, visual acuity intact EYES: PERRLA, EOM intact ENT: Hearing intact, lips moist Cardiac: S1 S2 RRR, No ectopy Pulmonary: Lungs clear to auscultation, No increased WOB. Abdominal: BS active in all 4 quadrants, no guarding or tenderness MSK: Strength 5/5 upper and lower extremities : Deferred Extremities: No edema in lower extremities Psych: mood stable, Quiet and cooperative. Skin: Warm and dry, Intact Results Labs 12/19/24 13:34 12/21/24 07:31 Assessment and Plan (1) Elevated LFTs: Status: Acute (2) Hypertriglyceridemia: Status: Acute Plan 64-year-old male with medical history as listed below admitted to for consideration of ECT treatment due to worsening depression. 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 Consider addiction medicine consult. Hypertension/hyperlipidemia/History of hypertriglyceridemia Continue amlodipine, Zetia, and fenofibrate as well as atorvastatin. (On Rosuvastatin 20 mgs at home) Followed by endocrinology Dr. Sotelo at [facility]. Encourage alcohol cessation. Transaminitis Trending down, likely due to ETOH use although patient denies any ETOH use. ETOH Level 127 in ED. Will DC Metformin. Recently lost greater than 20 #. Recent A1c 4.7 Type 2 diabetes A1c is 4.7 We will DC metformin due to persistent elevated LFTs Patient will need to follow up with primary care doctor Continue diet exercise Recently lost more than 20 pounds due to lifestyle changes. ECT risk stratification Patient without previous problems with anesthesia, no history of ECT treatments RCRI 0 points, no indication for cardiac workup or treatment indicated at this time. Patient denies any past problems with anesthesia. Recent EKG 12/19/2024 showed QTc 461, no evidence of ischemic changes. BP is stable. Based on stated PMH, HPI, and physical exam, there are no There are no obvious contraindications to the planned procedure.
[2024-12-23 20:00] VITALS: BP 123/80; PULSE 72; RESP 16; TEMP 36.1; O2SAT 98
[2024-12-24 07:57] VITALS: BP 136/83; PULSE 69; RESP 18; TEMP 35.9; O2SAT 96
[2024-12-24] MEDS: buPROPion HCl XL 150 MG TAB.ER.24H 450 MG PO (09:12)
[2024-12-24 09:13] VITALS: BP 136/83
--- NOTE | 2024-12-24 17:19 | P.PNPSI_ITS ---
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 Denies any alcohol withdrawal and says that his hand shakes her due to Wellbutrin which he gets every day since he has been taking it. Discussed behavioral activation and patient agreed to shower and get dressed. Mental Status Exam Mental Status Exam Narrative: Pt is alert and oriented; behavior is superficially cooperative, calm but does not say much; isolative spending most of the time in bed; patient is not in distress; dressed in casual attire, scruffy marginal hygiene; mood is described as depressed and affect congruent, downcast; eye contact appropriate; Speech is sparse, slowed, soft; significant psychomotor retardation present; thought process is goal directed, concrete; Thought content is on tx and otherwise not disclose; no delusional ideations expressed; denies any SI/HI. Denies AVH and there is no evidence of perceptual disturbance. Patients insight and judgment impaired. Diagnostics Vital Signs (24Hr): Vital Signs - 24 hr 12/23/24 20:00 12/24/24 07:57 12/24/24 09:13 Temperature 97 F 96.7 F L Pulse Rate 72 69 Respiratory Rate 16 18 Blood Pressure 123/80 136/83 136/83 Pulse Oximetry 98 96 Oxygen Delivery Method Room Air Room Air BMI result Body Mass Index 34.3 Labs 12/19/24 13:34 12/21/24 07:31 Medications Medications Current Medications Acetaminophen (Acetaminophen 325 Mg Tablet) 650 mg PO Q6H PRN PRN Reason: Headache/Pain, Scale 1-10 Al Hydroxide/Mg Hydroxide (Magnesium Hydrox/Alum Hydrox 30 Ml Oral.Susp) 30 ml PO Q6H PRN PRN Reason: Heartburn/Nausea Amlodipine Besylate (Amlodipine Besylate 10 Mg Tablet) 10 mg PO DAILY [facility]; Protocol Last Admin: 12/24/24 09:13 Dose: 10 mg Atorvastatin Calcium (Atorvastatin Calcium 80 Mg Tablet) 80 mg PO DAILY [facility] Last Admin: 12/24/24 09:13 Dose: 80 mg Bupropion HCl (Bupropion Hcl Xl 150 Mg Tab.Er.24h) 450 mg PO DAILY [facility] Last Admin: 12/24/24 09:12 Dose: 450 mg Ezetimibe (Ezetimibe 10 Mg Tablet) 10 mg PO DAILY [facility] Last Admin: 12/24/24 09:12 Dose: 10 mg Escitalopram Oxalate (Escitalopram Oxalate 20 Mg Tablet) 20 mg PO BEDTIME [facility] Last Admin: 12/23/24 21:04 Dose: 20 mg Fenofibrate (Fenofibrate 160 Mg Tablet) 160 mg PO DAILY [facility] Last Admin: 12/24/24 09:13 Dose: 160 mg Hydroxyzine HCl (Hydroxyzine Hcl 25 Mg Tablet) 25 mg PO Q6H PRN PRN Reason: mild anxiety Last Admin: 12/23/24 08:36 Dose: 25 mg Lorazepam (Lorazepam 1 Mg Tablet) 1 mg PO TID [facility] Last Admin: 12/24/24 14:25 Dose: 1 mg Lurasidone HCl (Lurasidone Hcl 20 Mg Tablet) 60 mg PO DAILY@1700 [facility] Last Admin: 12/24/24 16:19 Dose: 60 mg Magnesium Hydroxide (Milk Of Magnesia 30 Ml Oral.Susp) 30 ml PO DAILY PRN PRN Reason: Constipation Naltrexone HCl (Naltrexone Hcl 50 Mg Tablet) 50 mg PO DAILY [facility] Last Admin: 12/24/24 09:12 Dose: 50 mg Nicotine (Nicotine 21 Mg Patch.Td24) 21 mg TRANSDERMA DAILY PRN PRN Reason: smoking cessation Nicotine Polacrilex (Nicotine Polacrilex 2 Mg Gum) 4 mg BUCCAL Q2H PRN PRN Reason: Nicotine Cravings Thiamine HCl (Thiamine Hcl 100 Mg Tablet) 100 mg PO DAILY [facility] Last Admin: 12/24/24 09:12 Dose: 100 mg Topiramate (Topiramate 25 Mg Tablet) 50 mg PO BEDTIME [facility] Last Admin: 12/23/24 21:05 Dose: 50 mg Trazodone HCl (Trazodone Hcl 100 Mg Tablet) 100 mg PO BEDTIME [facility] Last Admin: 12/23/24 21:05 Dose: 100 mg Trazodone HCl (Trazodone Hcl 50 Mg Tablet) 50 mg PO BEDTIME MRX1 PRN PRN Reason: Insomnia Allergies Allergies Allergy/AdvReac Type Severity Reaction Status Date / Time No Known Allergies Allergy Verified 12/19/24 13:11 Assessment & Plan Assessment & Plan (1) Major depressive disorder, recurrent severe without psychotic features: Status: Acute Code(s): F33.2 - Major depressive disorder, recurrent severe without psychotic features (2) ANDREW (generalized anxiety disorder): Status: Acute Code(s): F41.1 - Generalized anxiety disorder (3) Alcohol use: Status: Acute Code(s): F10.90 - Alcohol use, unspecified, uncomplicated Plan HPI: 64 yo MWM with worsening depression - hx TRD and getting TMS here to start ECT for ongoing depressive sys not responding to treatment as usual - ongoing depression, hopeless/helpless feelings- no active si , last SA was 12 year ago when he [facility] while blacked out on alcohol. Also rates high anxiety- staying in bed 22 hrs/day- xs sleep, no energy- increased symptoms of depression such as sleeping 22 hours daily, not showering, not engaged; no SI Hx trying multiple antidepressants Reports decreased appetite, weight , energy , anehd[place] severe , and feelings of guilt- Past Psychiatric History: denies prior psychiatric hospitalization last suicide attempt 12 years ago; . He has had 2 prior suicide attempts which he says I was blackout drunk . Hospital course: Patient reports depression/anxiety for years; Patient says lots of med trials, including TMS; Reports history therapy but not consistent restarted drinking 2 weeks ago after 2 years sober; says only 2 nips a day. Initially said he was not drinking at all but patient explains this because his was present and he did not want her to know he relapsed Discussed with patient ECT, risks/side effects and treatment plan; patient eager to embark. Also discussed medication management and he has been on Wellbutrin and Latuda current doses for 2 years and agrees to increase. 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 Denies any alcohol withdrawal and says that his hand shakes her due to Wellbutrin which he gets every day since he has been taking it. Discussed behavioral activation and patient agreed to shower and get dressed. -patient looks like he is in alcohol withdrawal even though he denies it. Will schedule Ativan 1 mg t.i.d. for now to mitigate what is likely withdrawal Plan: CV Q 15 minute checks Ativan 1 mg t.i.d. for withdrawal symptoms; will taper and discontinue ECT medical review consult placed wellbutrin XL 300mg daily am been on for 2 years; agrees to increase Latuda 40mg daily been on current dose for 2 years; agrees to increase Continue Lexapro 20 mg daily Continue Naltrexone 50mg daily Continue topomax 50mg daily Continue trazodone 100mg bedtime Past med trials: Not sure therapeutic duration and dose; Abilify Lamictal [place] Paxil Effexor Risperidone Patient educated on: diagnosis, medication risk/benefits, substance abuse and medical condition Informed Consent: understands Reason for continued inpatient stay Substantial Risk for: rapid decompensation Time Spent With Patient Time: Total time managing care of this patient today ____ minutes.
[2024-12-24 20:00] VITALS: BP 119/73; PULSE 79; RESP 16; TEMP 36.2; O2SAT 97
[2024-12-25 08:56] VITALS: BP 137/77; PULSE 71; TEMP 36.2; O2SAT 98
[2024-12-25] MEDS: buPROPion HCl XL 150 MG TAB.ER.24H 450 MG PO (08:57)
--- NOTE | 2024-12-25 18:08 | P.PNPSI_ITS ---
Subjective Subjective Date of Service: 12/25/24 Reason For Visit: depression Interim History: met with patient; discussed with team; discussed with Dr. May says a little better; wants to proceed with ECT denies he's in any w/drswal and maintains shakes from Wellbutrin and chronic Mental Status Exam Mental Status Exam Narrative: Pt is alert and oriented; behavior is superficially cooperative, calm but does not say much; isolative spending most of the time in bed; patient is not in distress; dressed in casual attire, scruffy marginal hygiene; mood is described as little better and affect congruent,still downcast; eye contact appropriate; Speech is sparse, slowed, soft; significant psychomotor retardation present; thought process is goal directed, concrete; Thought content is on tx and otherwise not disclose; no delusional ideations expressed; denies any SI/HI. Denies AVH and there is no evidence of perceptual disturbance. Patients insight and judgment impaired. Diagnostics Vital Signs (24Hr): Vital Signs - 24 hr 12/24/24 20:00 12/25/24 08:56 Temperature 97.2 F 97.1 F Pulse Rate 79 71 Respiratory Rate 16 Blood Pressure 119/73 137/77 Pulse Oximetry 97 98 Oxygen Delivery Method Room Air Room Air BMI result Body Mass Index 34.3 Labs 12/19/24 13:34 12/21/24 07:31 Medications Medications Current Medications Acetaminophen (Acetaminophen 325 Mg Tablet) 650 mg PO Q6H PRN PRN Reason: Headache/Pain, Scale 1-10 Al Hydroxide/Mg Hydroxide (Magnesium Hydrox/Alum Hydrox 30 Ml Oral.Susp) 30 ml PO Q6H PRN PRN Reason: Heartburn/Nausea Amlodipine Besylate (Amlodipine Besylate 10 Mg Tablet) 10 mg PO DAILY [facility]; Protocol Last Admin: 12/25/24 08:56 Dose: 10 mg Atorvastatin Calcium (Atorvastatin Calcium 80 Mg Tablet) 80 mg PO DAILY [facility] Last Admin: 12/25/24 08:57 Dose: 80 mg Bupropion HCl (Bupropion Hcl Xl 150 Mg Tab.Er.24h) 450 mg PO DAILY [facility] Last Admin: 12/25/24 08:57 Dose: 450 mg Ezetimibe (Ezetimibe 10 Mg Tablet) 10 mg PO DAILY [facility] Last Admin: 12/25/24 08:57 Dose: 10 mg Escitalopram Oxalate (Escitalopram Oxalate 20 Mg Tablet) 20 mg PO BEDTIME [facility] Last Admin: 12/24/24 20:23 Dose: 20 mg Fenofibrate (Fenofibrate 160 Mg Tablet) 160 mg PO DAILY [facility] Last Admin: 12/25/24 08:56 Dose: 160 mg Hydroxyzine HCl (Hydroxyzine Hcl 25 Mg Tablet) 25 mg PO Q6H PRN PRN Reason: mild anxiety Last Admin: 12/23/24 08:36 Dose: 25 mg Lorazepam (Lorazepam 1 Mg Tablet) 1 mg PO BID [facility] Lurasidone HCl (Lurasidone Hcl 20 Mg Tablet) 60 mg PO DAILY@1700 [facility] Last Admin: 12/25/24 17:17 Dose: 60 mg Magnesium Hydroxide (Milk Of Magnesia 30 Ml Oral.Susp) 30 ml PO DAILY PRN PRN Reason: Constipation Naltrexone HCl (Naltrexone Hcl 50 Mg Tablet) 50 mg PO DAILY [facility] Last Admin: 12/25/24 08:57 Dose: 50 mg Nicotine (Nicotine 21 Mg Patch.Td24) 21 mg TRANSDERMA DAILY PRN PRN Reason: smoking cessation Nicotine Polacrilex (Nicotine Polacrilex 2 Mg Gum) 4 mg BUCCAL Q2H PRN PRN Reason: Nicotine Cravings Thiamine HCl (Thiamine Hcl 100 Mg Tablet) 100 mg PO DAILY [facility] Last Admin: 12/25/24 08:56 Dose: 100 mg Topiramate (Topiramate 25 Mg Tablet) 50 mg PO BEDTIME [facility] Last Admin: 12/24/24 20:23 Dose: 50 mg Trazodone HCl (Trazodone Hcl 100 Mg Tablet) 100 mg PO BEDTIME [facility] Last Admin: 12/24/24 20:23 Dose: 100 mg Trazodone HCl (Trazodone Hcl 50 Mg Tablet) 50 mg PO BEDTIME MRX1 PRN PRN Reason: Insomnia Allergies Allergies Allergy/AdvReac Type Severity Reaction Status Date / Time No Known Allergies Allergy Verified 12/19/24 13:11 Assessment & Plan Assessment & Plan (1) Major depressive disorder, recurrent severe without psychotic features: Status: Acute Code(s): F33.2 - Major depressive disorder, recurrent severe without psychotic features (2) ANDREW (generalized anxiety disorder): Status: Acute Code(s): F41.1 - Generalized anxiety disorder (3) Alcohol use: Status: Acute Code(s): F10.90 - Alcohol use, unspecified, uncomplicated Plan HPI: 64 yo MWM with worsening depression - hx TRD and getting TMS here to start ECT for ongoing depressive sys not responding to treatment as usual - ongoing depression, hopeless/helpless feelings- no active si , last SA was 12 year ago when he [employer] while blacked out on alcohol. Also rates high anxiety- staying in bed 22 hrs/day- xs sleep, no energy- increased symptoms of depression such as sleeping 22 hours daily, not showering, not engaged; no SI Hx trying multiple antidepressants Reports decreased appetite, weight , energy , anehd[place] severe , and feelings of guilt- Past Psychiatric History: denies prior psychiatric hospitalization last suicide attempt 12 years ago; . He has had 2 prior suicide attempts which he says I was blackout drunk . Hospital course: Patient reports depression/anxiety for years; Patient says lots of med trials, including TMS; Reports history therapy but not consistent restarted drinking 2 weeks ago after 2 years sober; says only 2 nips a day. Initially said he was not drinking at all but patient explains this because his was present and he did not want her to know he relapsed Discussed with patient ECT, risks/side effects and treatment plan; patient eager to embark. Also discussed medication management and he has been on Wellbutrin and Latuda current doses for 2 years and agrees to increase. 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 Denies any alcohol withdrawal and says that his hand shakes her due to Wellbutrin which he gets every day since he has been taking it. Discussed behavioral activation and patient agreed to shower and get dressed. -patient looks like he is in alcohol withdrawal even though he denies it. Will schedule Ativan 1 mg t.i.d. for now to mitigate what is likely withdrawal 12/25 says little better with med increase; still wants ect; says not in any withdrawal -will proceed with ECT Plan: CV Q 15 minute checks Ativan 1 mg bid; likely can dc ECT monday wellbutrin XL 300mg daily am been on for 2 years; agrees to increase Latuda 40mg daily been on current dose for 2 years; agrees to increase Continue Lexapro 20 mg daily Continue Naltrexone 50mg daily Continue topomax 50mg daily Continue trazodone 100mg bedtime Past med trials: Not sure therapeutic duration and dose; Abilify Lamictal [place] Paxil Effexor Risperidone Patient educated on: diagnosis, medication risk/benefits, substance abuse and ECT Informed Consent: understands Reason for continued inpatient stay Substantial Risk for: rapid decompensation Time Spent With Patient Time: Total time managing care of this patient today ____ minutes.
[2024-12-26 08:00] VITALS: BP 137/85; PULSE 70; TEMP 36.4; O2SAT 99
[2024-12-26 08:25] LABS: Creatinine Clr Calc Pharmacy 82.6; Estimated Glomerular Filt Rate > 60
[2024-12-26] MEDS: buPROPion HCl XL 150 MG TAB.ER.24H 450 MG PO (09:00)
--- NOTE | 2024-12-26 09:51 | HO.PSYCHPN ---
Subjective Subjective Date of Service: 12/26/24 Reason For Visit: depression Subjective Notes: Conditional Voluntary Interim History: Patient reports severe anxiety and depression. He has been sleeping well. He has been taking his medications. He attended 1 group so far. He denies SI/HI/AH/VH. Medication Compliance: Yes Side effects from medications: No Attending Groups: Intermittent Review of Systems Acute medical concerns: No Mental Status Exam Mental Status Exam Narrative: Appearance: Casually dressed, adequate hygiene Behavior: Calm and cooperative throughout the interview. Eye contact is appropriate, and there are no signs of psychomotor agitation or retardation Speech: Normal volume and prosody Thought process: Logical and goal-directed Thought content: Future oriented no self-harming thoughts Mood: anxious and depressed Affect: Flat SI:denies HI:denies VH/AH:none Delusions: None Insight/judgment: Fair insight and judgment Memory/cog: Alert, oriented x 4. grossly intact to conversational testing Diagnostics Vital Signs (24Hr): Vital Signs - 24 hr 12/26/24 08:00 Temperature 97.5 F Pulse Rate 70 Blood Pressure 137/85 Pulse Oximetry 99 Oxygen Delivery Method Room Air BMI result Body Mass Index 34.3 Labs 12/19/24 13:34 12/26/24 07:59 Labs: Laboratory Results - last 48 hr 12/26/24 07:59 Creatinine 1.06 Estim Creat Clear Calc 82.6 Estimated GFR > 60 Medications Medications Current Medications Acetaminophen (Acetaminophen 325 Mg Tablet) 650 mg PO Q6H PRN PRN Reason: Headache/Pain, Scale 1-10 Al Hydroxide/Mg Hydroxide (Magnesium Hydrox/Alum Hydrox 30 Ml Oral.Susp) 30 ml PO Q6H PRN PRN Reason: Heartburn/Nausea Amlodipine Besylate (Amlodipine Besylate 10 Mg Tablet) 10 mg PO DAILY [facility]; Protocol Last Admin: 12/26/24 09:00 Dose: 10 mg Atorvastatin Calcium (Atorvastatin Calcium 80 Mg Tablet) 80 mg PO DAILY [facility] Last Admin: 12/26/24 09:00 Dose: 80 mg Bupropion HCl (Bupropion Hcl Xl 150 Mg Tab.Er.24h) 450 mg PO DAILY [facility] Last Admin: 12/26/24 09:00 Dose: 450 mg Ezetimibe (Ezetimibe 10 Mg Tablet) 10 mg PO DAILY [facility] Last Admin: 12/26/24 09:00 Dose: 10 mg Escitalopram Oxalate (Escitalopram Oxalate 20 Mg Tablet) 20 mg PO BEDTIME [facility] Last Admin: 12/25/24 21:12 Dose: 20 mg Fenofibrate (Fenofibrate 160 Mg Tablet) 160 mg PO DAILY [facility] Last Admin: 12/26/24 09:00 Dose: 160 mg Hydroxyzine HCl (Hydroxyzine Hcl 25 Mg Tablet) 25 mg PO Q6H PRN PRN Reason: mild anxiety Last Admin: 12/23/24 08:36 Dose: 25 mg Lorazepam (Lorazepam 1 Mg Tablet) 1 mg PO BID@0900,1400 [facility] Stop: 12/27/24 08:00 Last Admin: 12/26/24 09:00 Dose: 1 mg Lurasidone HCl (Lurasidone Hcl 20 Mg Tablet) 60 mg PO DAILY@1700 [facility] Last Admin: 12/25/24 17:17 Dose: 60 mg Magnesium Hydroxide (Milk Of Magnesia 30 Ml Oral.Susp) 30 ml PO DAILY PRN PRN Reason: Constipation Naltrexone HCl (Naltrexone Hcl 50 Mg Tablet) 50 mg PO DAILY [facility] Last Admin: 12/26/24 09:00 Dose: 50 mg Nicotine (Nicotine 21 Mg Patch.Td24) 21 mg TRANSDERMA DAILY PRN PRN Reason: smoking cessation Nicotine Polacrilex (Nicotine Polacrilex 2 Mg Gum) 4 mg BUCCAL Q2H PRN PRN Reason: Nicotine Cravings Thiamine HCl (Thiamine Hcl 100 Mg Tablet) 100 mg PO DAILY [facility] Last Admin: 12/26/24 09:00 Dose: 100 mg Topiramate (Topiramate 25 Mg Tablet) 50 mg PO BEDTIME [facility] On Hold: 12/26/24 09:00 Last Admin: 12/25/24 21:13 Dose: 50 mg Trazodone HCl (Trazodone Hcl 100 Mg Tablet) 100 mg PO BEDTIME [facility] Last Admin: 12/25/24 21:12 Dose: 100 mg Trazodone HCl (Trazodone Hcl 50 Mg Tablet) 50 mg PO BEDTIME MRX1 PRN PRN Reason: Insomnia Last Admin: 12/25/24 21:13 Dose: 50 mg Allergies Allergies Allergy/AdvReac Type Severity Reaction Status Date / Time No Known Allergies Allergy Verified 12/19/24 13:11 Assessment & Plan Assessment & Plan (1) Major depressive disorder, recurrent severe without psychotic features: Status: Acute Code(s): F33.2 - Major depressive disorder, recurrent severe without psychotic features (2) ANDREW (generalized anxiety disorder): Status: Acute Code(s): F41.1 - Generalized anxiety disorder (3) Alcohol use: Status: Acute Code(s): F10.90 - Alcohol use, unspecified, uncomplicated Plan HPI: 64 yo MWM with worsening depression - hx TRD and getting TMS here to start ECT for ongoing depressive sys not responding to treatment as usual - ongoing depression, hopeless/helpless feelings- no active si , last SA was 12 year ago when he [facility] while blacked out on alcohol. Also rates high anxiety- staying in bed 22 hrs/day- xs sleep, no energy- increased symptoms of depression such as sleeping 22 hours daily, not showering, not engaged; no SI Hx trying multiple antidepressants Reports decreased appetite, weight , energy , [place] severe , and feelings of guilt- Past Psychiatric History: denies prior psychiatric hospitalization last suicide attempt 12 years ago; . He has had 2 prior suicide attempts which he says I was blackout drunk . Hospital course: Patient reports depression/anxiety for years; Patient says lots of med trials, including TMS; Reports history therapy but not consistent restarted drinking 2 weeks ago after 2 years sober; says only 2 nips a day. Initially said he was not drinking at all but patient explains this because his was present and he did not want her to know he relapsed Discussed with patient ECT, risks/side effects and treatment plan; patient eager to embark. Also discussed medication management and he has been on Wellbutrin and Latuda current doses for 2 years and agrees to increase. 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 Denies any alcohol withdrawal and says that his hand shakes her due to Wellbutrin which he gets every day since he has been taking it. Discussed behavioral activation and patient agreed to shower and get dressed. -patient looks like he is in alcohol withdrawal even though he denies it. Will schedule Ativan 1 mg t.i.d. for now to mitigate what is likely withdrawal 12/25 says little better with med increase; still wants ect; says not in any withdrawal -will proceed with ECT 12/26: Patient reports severe anxiety and depression. He has been sleeping well. He has been taking his medications. He attended 1 group so far. He denies SI/HI/AH/VH. Continue current treatment regimen. ECT scheduled tomorrow. Plan: CV Q 15 minute checks Ativan 1 mg bid; likely can dc ECT monday wellbutrin XL 300mg daily am been on for 2 years; agrees to increase Latuda 40mg daily been on current dose for 2 years; agrees to increase Continue Lexapro 20 mg daily Continue Naltrexone 50mg daily Continue topomax 50mg daily Continue trazodone 100mg bedtime Past med trials: Not sure therapeutic duration and dose; Abilify Lamictal [place] Paxil Effexor Risperidone Patient educated on: therapeutic strategies Reason for continued inpatient stay Substantial Risk for: rapid decompensation Time Spent With Patient Time: Total time managing care of this patient today ____ minutes.
[2024-12-26 20:00] VITALS: BP 118/72; PULSE 88; RESP 16; TEMP 36.4; O2SAT 98
[2024-12-27] VITALS (10 sets, daily range): BP systolic 114–154; BP diastolic 65–89; PULSE 68–88; RESP 13–18; TEMP 35.8–36.7; O2SAT 95–99
--- NOTE | 2024-12-27 07:03 | MHC.SHP ---
Pre-Procedural Eval Section A - 24 Hr Update-Section A only Date of Service: 12/27/24 The patient is an INPATIENT: Yes Changes since office visit: Yes Patient answered all questions; No Cold of Flu in the past 2 weeks, No New Medical Problems and No Changes in Medication The patient has been examined within 24 hours of the surgical procedure. The History & Physical has been completed within 30 days and I have reviewed it.: Yes Section B - Complete if H&P > 30 days Chief Complaint: depression Allergies: Allergies Allergy/AdvReac Type Severity Reaction Status Date / Time No Known Allergies Allergy Verified 12/19/24 13:11 Plan Diagnosis/Plan: Unchanged I have reviewed the history and physical and performed a pertinent physical examination on my patient. No changes have occurred unless specified. Time Spent With Patient Time: Total time managing care of this patient today __35__ minutes.
--- NOTE | 2024-12-27 07:46 | HO.ANESPROP2 ---
HPI - Anesthesia Eval Consult details Narrative: For ECT PMFSH Active Problems Active Problems: All Active Problems Hypertriglyceridemia (Acute) Depression (Acute) Elevated LFTs (Acute) Alcohol use (Acute) Fatigue (Acute) ANDREW (generalized anxiety disorder) (Acute) Major depressive disorder, recurrent severe without psychotic features (Acute) Past Medical History Medical History Fatigue Family History Family history of problems with anesthesia: No Surgical History History of Problems with Anesthesia: No Social History Social History Household Members: Spouse Housing: House Do you presently have visiting nurse or other home services: No Alcohol intake: former Patient Tobacco Use Status: Never used Tobacco Smoked in Last 30 Days: No Use of substances other than those prescribed or required for medical reasons: No Currently Displaying Signs/Symptoms of Drug Intoxication Withdrawal: No Have you been hit, kicked, punched, or otherwise hurt by someone within the past year? If so, by whom?: No Do you feel safe in your current relationship?: No Is there a partner from a previous relationship who is making you feel unsafe now?: No Are you made to feel afraid or neglected: No Spiritual Healthcare Practices: none Orthodoxy Healthcare Practices: none Cultural Healthcare Practices: none Advance Directives: No Advance Directives Information Provided: Yes Do you have thoughts of harming others: None Do you have a plan to hurt others: No Plan Recently lost weight without trying: No How much weight loss: Not applicable Eating poorly because of decreased appetite: No Nutrition screen score: 0 Nutrition Risks: No Nutritional Risk Poor oral hygiene: No service: No Sexual orientation: Straight/Heterosexual Meds Allergies Allergy/AdvReac Type Severity Reaction Status Date / Time No Known Allergies Allergy Verified 12/19/24 13:11 Active Medications: Current Medications Acetaminophen (Acetaminophen 325 Mg Tablet) 650 mg PO Q6H PRN PRN Reason: Headache/Pain, Scale 1-10 Al Hydroxide/Mg Hydroxide (Magnesium Hydrox/Alum Hydrox 30 Ml Oral.Susp) 30 ml PO Q6H PRN PRN Reason: Heartburn/Nausea Amlodipine Besylate (Amlodipine Besylate 10 Mg Tablet) 10 mg PO DAILY [facility]; Protocol Last Admin: 12/26/24 09:00 Dose: 10 mg Atorvastatin Calcium (Atorvastatin Calcium 80 Mg Tablet) 80 mg PO DAILY [facility] Last Admin: 12/26/24 09:00 Dose: 80 mg Bupropion HCl (Bupropion Hcl Xl 150 Mg Tab.Er.24h) 450 mg PO DAILY [facility] Last Admin: 12/26/24 09:00 Dose: 450 mg Ezetimibe (Ezetimibe 10 Mg Tablet) 10 mg PO DAILY [facility] Last Admin: 12/26/24 09:00 Dose: 10 mg Escitalopram Oxalate (Escitalopram Oxalate 20 Mg Tablet) 20 mg PO BEDTIME [facility] Last Admin: 12/26/24 21:22 Dose: 20 mg Fenofibrate (Fenofibrate 160 Mg Tablet) 160 mg PO DAILY [facility] Last Admin: 12/26/24 09:00 Dose: 160 mg Hydroxyzine HCl (Hydroxyzine Hcl 25 Mg Tablet) 25 mg PO Q6H PRN PRN Reason: mild anxiety Last Admin: 12/23/24 08:36 Dose: 25 mg Lorazepam (Lorazepam 1 Mg Tablet) 1 mg PO BID@0900,1400 [facility] Stop: 12/27/24 08:00 Last Admin: 12/26/24 15:05 Dose: 1 mg Lurasidone HCl (Lurasidone Hcl 20 Mg Tablet) 60 mg PO DAILY@1700 [facility] Last Admin: 12/26/24 17:25 Dose: 60 mg Magnesium Hydroxide (Milk Of Magnesia 30 Ml Oral.Susp) 30 ml PO DAILY PRN PRN Reason: Constipation Naltrexone HCl (Naltrexone Hcl 50 Mg Tablet) 50 mg PO DAILY [facility] Last Admin: 12/26/24 09:00 Dose: 50 mg Nicotine (Nicotine 21 Mg Patch.Td24) 21 mg TRANSDERMA DAILY PRN PRN Reason: smoking cessation Nicotine Polacrilex (Nicotine Polacrilex 2 Mg Gum) 4 mg BUCCAL Q2H PRN PRN Reason: Nicotine Cravings Thiamine HCl (Thiamine Hcl 100 Mg Tablet) 100 mg PO DAILY [facility] Last Admin: 12/26/24 09:00 Dose: 100 mg Topiramate (Topiramate 25 Mg Tablet) 50 mg PO BEDTIME [facility] On Hold: 12/26/24 09:00 Last Admin: 12/25/24 21:13 Dose: 50 mg Trazodone HCl (Trazodone Hcl 100 Mg Tablet) 100 mg PO BEDTIME [facility] Last Admin: 12/26/24 21:22 Dose: 100 mg Trazodone HCl (Trazodone Hcl 50 Mg Tablet) 50 mg PO BEDTIME MRX1 PRN PRN Reason: Insomnia Last Admin: 12/25/24 21:13 Dose: 50 mg Home Medications ?Medication ?Instructions ?Recorded ?Confirmed ?Last Taken ?Type amlodipine 10 mg tablet 10 mg PO DAILY 12/19/24 12/19/24 Unknown History bupropion HCl 300 mg 24 hr tablet, 300 mg PO QAM 12/19/24 12/19/24 Unknown History extended release escitalopram oxalate 20 mg tablet 20 mg PO BEDTIME 12/19/24 12/19/24 Unknown History ezetimibe 10 mg tablet 10 mg PO DAILY 12/19/24 12/19/24 Unknown History fenofibrate 160 mg tablet 160 mg PO DAILY 12/19/24 12/19/24 Unknown History lurasidone 40 mg tablet 40 mg PO QPM 12/19/24 12/19/24 Unknown History metformin 500 mg tablet,extended 500 mg PO DAILY 12/19/24 12/19/24 Unknown History release 24 hr naltrexone 50 mg tablet 50 mg PO DAILY 12/19/24 12/19/24 Unknown History omega-3 acid ethyl esters 1 gram 2 cap PO BID 12/19/24 12/19/24 Unknown History capsule rosuvastatin 20 mg tablet 20 mg PO DAILY 12/19/24 12/19/24 Unknown History topiramate 50 mg tablet 50 mg PO BEDTIME 12/19/24 12/19/24 Unknown History trazodone 100 mg tablet 100 mg PO BEDTIME 12/19/24 12/19/24 Unknown History Exam Height,Weight and Vital Signs: Height 5 ft 8 in Weight 102.3 kg Last Vital Signs Temp 97 F 12/27/24 06:53 Pulse 68 12/27/24 06:53 Resp 18 12/27/24 06:53 BP 144/86 H 12/27/24 06:53 Pulse Ox 99 12/27/24 06:53 O2 Del Method Room Air 12/27/24 06:53 Pertinent Lab Results Pertinent Lab Results: Laboratory Tests 12/19/24 12/19/24 12/21/24 13:34 16:58 07:31 WBC 7.4 RBC 5.07 Hgb 16.1 Hct 44.1 MCV 87.0 MCH 31.8 MCHC 36.5 H RDW 13.3 Plt Count 212 MPV 8.9 L Immature Gran % (Auto) 0.9 H Neut % (Auto) 52.0 Lymph % (Auto) 36.7 [place] % (Auto) 8.3 Eos % (Auto) 1.4 Baso % (Auto) 0.7 Lymph # (Auto) 2.7 [place] # (Auto) 0.6 Eos # (Auto) 0.1 Baso # (Auto) 0.1 Abs Immat Gran (auto) 0.07 H Absolute Neuts (auto) 3.8 Absolute Nucleated RBC 0.000 Nucleated RBC % (auto) 0.0 Sodium 141 141 Potassium 3.5 3.9 Chloride 106 107 Carbon Dioxide 22 24 Anion Gap 17 14 BUN 11 10 Creatinine 0.92 0.98 Estim Creat Clear Calc 95.3 89.4 Estimated GFR > 60 > 60 Random Glucose 90 107 Estimat Average Glucose 88 Hemoglobin A1c % 4.7 Calcium 8.6 9.1 Magnesium 1.8 Total Bilirubin 0.9 1.2 H AST 206 H 122 H ALT 182 H 115 H Alkaline Phosphatase 109 95 Total Protein 7.0 6.5 Albumin 4.4 4.2 Triglycerides 217 H Cholesterol 141 LDL Cholesterol, Calc 53 HDL Cholesterol 45 TSH 1.59 2.23 Urine Color Dark Yellow Urine Appearance Clear Urine pH 6.5 Ur Specific [place] 1.020 Urine Protein Trace Urine Glucose (UA) Negative Urine Ketones Trace Urine Blood Negative Urine Nitrite Negative Ur Leukocyte Esterase Small (1+) H Urine RBC 0-2 Urine WBC 6-10 H Ur Squamous Epith Cells 3-5 Urine Bacteria None Seen Hyaline Casts 3-5 Salicylates < 5.0 L Urine Opiates Screen Not Detected Ur Buprenorphine Scrn Not Detected Ur Oxycodone Screen Not Detected Urine Methadone Screen Not Detected Urine Fentanyl Screen Not Detected Acetaminophen < 3 Ur Barbiturates Screen Not Detected Ur Phencyclidine Scrn Not Detected Ur Amphetamines Screen Not Detected U Benzodiazepines Scrn Not Detected Urine Cocaine Screen Not Detected U Marijuana (THC) Screen Not Detected Ethyl Alcohol 127 12/26/24 07:59 WBC RBC Hgb Hct MCV MCH MCHC RDW Plt Count MPV Immature Gran % (Auto) Neut % (Auto) Lymph % (Auto) [place] % (Auto) Eos % (Auto) Baso % (Auto) Lymph # (Auto) [place] # (Auto) Eos # (Auto) Baso # (Auto) Abs Immat Gran (auto) Absolute Neuts (auto) Absolute Nucleated RBC Nucleated RBC % (auto) Sodium Potassium Chloride Carbon Dioxide Anion Gap BUN Creatinine 1.06 Estim Creat Clear Calc 82.6 Estimated GFR > 60 Random Glucose Estimat Average Glucose Hemoglobin A1c % Calcium Magnesium Total Bilirubin AST ALT Alkaline Phosphatase Total Protein Albumin Triglycerides Cholesterol LDL Cholesterol, Calc HDL Cholesterol TSH Urine Color Urine Appearance Urine pH Ur Specific [place] Urine Protein Urine Glucose (UA) Urine Ketones Urine Blood Urine Nitrite Ur Leukocyte Esterase Urine RBC Urine WBC Ur Squamous Epith Cells Urine Bacteria Hyaline Casts Salicylates Urine Opiates Screen Ur Buprenorphine Scrn Ur Oxycodone Screen Urine Methadone Screen Urine Fentanyl Screen Acetaminophen Ur Barbiturates Screen Ur Phencyclidine Scrn Ur Amphetamines Screen U Benzodiazepines Scrn Urine Cocaine Screen U Marijuana (THC) Screen Ethyl Alcohol Airway Mallampati Class: II TM Dist: <=3cm Neck ROM: Full Loose/Missing/Broken Teeth: Yes and Upper Heart: ok Lungs: ok Assessment and Plan Assessment Anesthesia Assessment: Anesthesia Plan Discussed and Chart Reviewed Final Anesthetic Review Family History of Problems with Anesthesia: No History of Problems with Anesthesia: No NPO: Yes ASA Class: III Final Preanesthetic Review: No Changes in Pt Med Stat, Meds/Allgs Chart Reviewed, Consent Obtained/Reviewed and Anes Risks/Benef Reviewed Patient Risk: Intermediate Procedure Risk: Intermediate Anesthetic Plan Anesthetic Plan: GA and Agree w/ Assess. and Plan Disposition: Standard PACU
[2024-12-27] MEDS: buPROPion HCl XL 150 MG TAB.ER.24H 450 MG PO (09:34)
--- NOTE | 2024-12-27 14:33 | HO.ECTPROC ---
ECT Procedure Note Diagnosis/Treatment Date of Service: 12/27/24 Diagnosis: Major Depressive Disorder Current Treatment Number: 1 Interval Clinical Notes: no change in medical or psychiatric status overnight. last topamax 2 nights ago, last ativan yesterday at 1400. Time: Total time managing care of this patient today __35__ minutes. ECT Settings Device: THYMATRON DGx Program/Pulse Width: 0.25 Energy Percent: 100 Seizure Duration By EEG (in seconds): 13 Medications Administration General Anesthetic: Etomidate (16) Muscle Relaxant: Succinylcholine (200) Airway Management Airway Management: Bag Mask Ventilation Treatment Recommendations No Changes Recommended: No change Notes: continue to hold topamax, taper and DC ativan by monday. retry at same settings. Pt Tolerated Procedure w/o Issue: Yes
--- NOTE | 2024-12-27 18:21 | HO.PSYCHPN ---
Subjective Subjective Date of Service: 12/27/24 Reason For Visit: depression Interim History: Met with patient; discussed with team Talked about addiction to alcohol; patient was sober for 2 years during which time he to today a however he was still quite depressed despite being on medications. Patient initially ambivalent about his need for AA support agreed that it will be difficult for him to remain sober unless really engages in AA and outpatient treatment. Discussed ECT and patient denies any side effects and wants to continue; discussed medications and he agrees to increasing Latuda Mental Status Exam Mental Status Exam Narrative: Pt is alert and oriented; behavior is superficially cooperative, calm but does not say much; isolative spending most of the time in bed; patient is not in distress; dressed in casual attire, scruffy marginal hygiene; mood is described as little better and affect congruent,still downcast; eye contact appropriate; Speech is sparse, slowed, soft; significant psychomotor retardation present; thought process is goal directed, concrete; Thought content is on tx and otherwise not disclose; no delusional ideations expressed; denies any SI/HI. Denies AVH and there is no evidence of perceptual disturbance. Patients insight and judgment impaired. Diagnostics Vital Signs (24Hr): Vital Signs - 24 hr 12/26/24 20:00 12/27/24 06:53 12/27/24 08:15 Temperature 97.6 F 97 F 98.1 F Pulse Rate 88 68 75 Respiratory Rate 16 18 13 Blood Pressure 118/72 144/86 H 154/88 H Pulse Oximetry 98 99 96 Oxygen Delivery Method Room Air Room Air Room Air Oxygen Flow Rate 12/27/24 08:20 12/27/24 08:25 12/27/24 08:30 Temperature Pulse Rate 76 76 72 Respiratory Rate 13 16 16 Blood Pressure 139/89 121/68 116/68 Pulse Oximetry 97 97 97 Oxygen Delivery Method Room Air Room Air Room Air Oxygen Flow Rate 12/27/24 08:45 12/27/24 09:00 12/27/24 09:34 Temperature 97.6 F Pulse Rate 88 71 Respiratory Rate 14 16 Blood Pressure 125/72 120/69 118/74 Pulse Oximetry 97 97 Oxygen Delivery Method Room Air Nasal Cannula Oxygen Flow Rate 2 BMI result Body Mass Index 34.3 Labs 12/19/24 13:34 12/26/24 07:59 Labs: Laboratory Results - last 48 hr 12/26/24 07:59 Creatinine 1.06 Estim Creat Clear Calc 82.6 Estimated GFR > 60 Medications Medications Current Medications Acetaminophen (Acetaminophen 325 Mg Tablet) 650 mg PO Q6H PRN PRN Reason: Headache/Pain, Scale 1-10 Al Hydroxide/Mg Hydroxide (Magnesium Hydrox/Alum Hydrox 30 Ml Oral.Susp) 30 ml PO Q6H PRN PRN Reason: Heartburn/Nausea Amlodipine Besylate (Amlodipine Besylate 10 Mg Tablet) 10 mg PO DAILY [facility]; Protocol Last Admin: 12/27/24 09:34 Dose: 10 mg Atorvastatin Calcium (Atorvastatin Calcium 80 Mg Tablet) 80 mg PO DAILY [facility] Last Admin: 12/27/24 09:34 Dose: 80 mg Bupropion HCl (Bupropion Hcl Xl 150 Mg Tab.Er.24h) 450 mg PO DAILY [facility] Last Admin: 12/27/24 09:34 Dose: 450 mg Ezetimibe (Ezetimibe 10 Mg Tablet) 10 mg PO DAILY [facility] Last Admin: 12/27/24 09:34 Dose: 10 mg Escitalopram Oxalate (Escitalopram Oxalate 20 Mg Tablet) 20 mg PO BEDTIME [facility] Last Admin: 12/26/24 21:22 Dose: 20 mg Fenofibrate (Fenofibrate 160 Mg Tablet) 160 mg PO DAILY [facility] Last Admin: 12/27/24 09:34 Dose: 160 mg Hydroxyzine HCl (Hydroxyzine Hcl 25 Mg Tablet) 25 mg PO Q6H PRN PRN Reason: mild anxiety Last Admin: 12/23/24 08:36 Dose: 25 mg Lurasidone HCl (Lurasidone Hcl 80 Mg Tablet) 80 mg PO DAILY@1700 [facility] Last Admin: 12/27/24 17:38 Dose: 80 mg Magnesium Hydroxide (Milk Of Magnesia 30 Ml Oral.Susp) 30 ml PO DAILY PRN PRN Reason: Constipation Naltrexone HCl (Naltrexone Hcl 50 Mg Tablet) 50 mg PO DAILY [facility] Last Admin: 12/27/24 09:34 Dose: 50 mg Nicotine (Nicotine 21 Mg Patch.Td24) 21 mg TRANSDERMA DAILY PRN PRN Reason: smoking cessation Nicotine Polacrilex (Nicotine Polacrilex 2 Mg Gum) 4 mg BUCCAL Q2H PRN PRN Reason: Nicotine Cravings Thiamine HCl (Thiamine Hcl 100 Mg Tablet) 100 mg PO DAILY [facility] Last Admin: 12/27/24 09:34 Dose: 100 mg Topiramate (Topiramate 25 Mg Tablet) 50 mg PO BEDTIME [facility] On Hold: 12/26/24 09:00 Last Admin: 12/25/24 21:13 Dose: 50 mg Trazodone HCl (Trazodone Hcl 100 Mg Tablet) 100 mg PO BEDTIME [facility] Last Admin: 12/26/24 21:22 Dose: 100 mg Trazodone HCl (Trazodone Hcl 50 Mg Tablet) 50 mg PO BEDTIME MRX1 PRN PRN Reason: Insomnia Last Admin: 12/25/24 21:13 Dose: 50 mg Allergies Allergies Allergy/AdvReac Type Severity Reaction Status Date / Time No Known Allergies Allergy Verified 12/19/24 13:11 Assessment & Plan Assessment & Plan (1) Major depressive disorder, recurrent severe without psychotic features: Status: Acute Code(s): F33.2 - Major depressive disorder, recurrent severe without psychotic features (2) ANDREW (generalized anxiety disorder): Status: Acute Code(s): F41.1 - Generalized anxiety disorder (3) Alcohol use: Status: Acute Code(s): F10.90 - Alcohol use, unspecified, uncomplicated Plan HPI: 64 yo MWM with worsening depression - hx TRD and getting TMS here to start ECT for ongoing depressive sys not responding to treatment as usual - ongoing depression, hopeless/helpless feelings- no active si , last SA was 12 year ago when he [facility] while blacked out on alcohol. Also rates high anxiety- staying in bed 22 hrs/day- xs sleep, no energy- increased symptoms of depression such as sleeping 22 hours daily, not showering, not engaged; no SI Hx trying multiple antidepressants Reports decreased appetite, weight , energy , anehdonia severe , and feelings of guilt- Past Psychiatric History: denies prior psychiatric hospitalization last suicide attempt 12 years ago; . He has had 2 prior suicide attempts which he says I was blackout drunk . Hospital course: Patient reports depression/anxiety for years; Patient says lots of med trials, including TMS; Reports history therapy but not consistent restarted drinking 2 weeks ago after 2 years sober; says only 2 nips a day. Initially said he was not drinking at all but patient explains this because his was present and he did not want her to know he relapsed Discussed with patient ECT, risks/side effects and treatment plan; patient eager to embark. Also discussed medication management and he has been on Wellbutrin and Latuda current doses for 2 years and agrees to increase. 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 Denies any alcohol withdrawal and says that his hand shakes her due to Wellbutrin which he gets every day since he has been taking it. Discussed behavioral activation and patient agreed to shower and get dressed. -patient looks like he is in alcohol withdrawal even though he denies it. Will schedule Ativan 1 mg t.i.d. for now to mitigate what is likely withdrawal 12/25 says little better with med increase; still wants ect; says not in any withdrawal -will proceed with ECT 12/26: Patient reports severe anxiety and depression. He has been sleeping well. He has been taking his medications. He attended 1 group so far. He denies SI/HI/AH/VH. Continue current treatment regimen. ECT scheduled tomorrow. 12/27 Talked about addiction to alcohol; patient was sober for 2 years during which time he to today a however he was still quite depressed despite being on medications. Patient initially ambivalent about his need for AA support agreed that it will be difficult for him to remain sober unless really engages in AA and outpatient treatment. Discussed ECT and patient denies any side effects and wants to continue; discussed medications and he agrees to increasing Latuda -says Topamax was for alcohol cravings which he said was helpful; agrees to have it held during ECT Plan: CV Q 15 minute checks Ativan 1 mg bid; likely can dc ECT monday Increase to wellbutrin XL 450 mg daily (has been on 300 mg for 2 years) Increase to Latuda 80mg daily (has been on 40 mg for 2 years) Continue Lexapro 20 mg daily Continue Naltrexone 50mg daily HOLD topomax 50mg while getting ECT Continue trazodone 100mg bedtime Past med trials: Not sure therapeutic duration and dose; Abilify Lamictal [place] Paxil Effexor Risperidone Patient educated on: diagnosis, medication risk/benefits, substance abuse, ECT and therapeutic strategies Informed Consent: understands Reason for continued inpatient stay Substantial Risk for: rapid decompensation Time Spent With Patient Time: Total time managing care of this patient today ____ minutes.
[2024-12-28 08:00] VITALS: BP 114/63; PULSE 71; TEMP 36.5; O2SAT 98
[2024-12-28] MEDS: buPROPion HCl XL 150 MG TAB.ER.24H 450 MG PO (08:42)
--- NOTE | 2024-12-28 17:35 | HO.PSYCHPN ---
Subjective Subjective Date of Service: 12/28/24 Reason For Visit: depression Interim History: Patient tolerated first ECT treatment well. No headaches. No confusion. Remains depressed. Denies SI. Future oriented and hopeful. Agrees to continue with course of ECT. Tolerating medications well. Review of Systems Review of Systems Denies any shortness of breath, chest pain, dizziness, lightheadedness, abdominal pain or discomfort, nausea vomiting or diarrhea Constitutional: Reports no additional constitutional complaints, Denies chills, Denies fever(s) and Denies night sweats Eyes: Reports no additional eye complaints, Denies blurry vision, Denies change in vision, Denies diplopia, Denies eye discharge, Denies loss of vision and Denies eye pain Denies dizziness Cardiovascular: Reports no additional cardiovascular complaints, Denies chest pain, Denies lightheadedness, Denies Loss of Consciousness and Denies dyspnea Respiratory: Reports no additional respiratory complaints and Denies dyspnea Gastrointestinal: Reports no additional gastrointestinal complaints, Denies abdominal pain, Denies melena, Denies hematochezia, Denies change in bowel habits and Denies change in stool character Genitourinary: Reports no additional male genitourinary complaints, Denies hematuria, Denies oliguria, Denies difficulty urinating, Denies dysuria, Denies urinary frequency, Denies urinary hesitancy, Denies urinary incontinence and Denies urinary urgency Musculoskeletal: Reports no additional musculoskeletal complaints, Denies numbness and Denies tingling Denies dizziness, Denies loss of vision, Denies numbness and Denies tingling Psychiatric: Reports depression, Denies homicidal ideation and Denies suicidal ideation Endocrine: Reports no additional endocrine complaints Hematologic/Lymphatic: Reports no additional hematologic/lymphatic complaints Allergic/Immunologic: Reports no additional allergic/immunologic complaints Mental Status Exam Mental Status Exam Narrative: Pt is alert and oriented; behavior is superficially cooperative, calm but does not say much; isolative spending most of the time in bed; patient is not in distress; dressed in casual attire, scruffy marginal hygiene; mood is described as little better and affect congruent,still downcast; eye contact appropriate; Speech is sparse, slowed, soft; significant psychomotor retardation present; thought process is goal directed, concrete; Thought content is on tx and otherwise not disclose; no delusional ideations expressed; denies any SI/HI. Denies AVH and there is no evidence of perceptual disturbance. Patients insight and judgment impaired. Patient Appearance: Appropriate and Unkempt Patient Orientation: Person, Place, Time and Situation Level of Consciousness: Awake and Alert Patient Behavior: Passive and Isolative Mood Description: Withdrawn Affect Description: Sad Patient Cognition Impaired: No Ability to Follow Directions: Fair Speech Pattern: Clear Diagnostics Vital Signs (24Hr): Vital Signs - 24 hr 12/27/24 20:00 12/28/24 08:00 Temperature 96.5 F L 97.7 F Pulse Rate 70 71 Blood Pressure 114/65 114/63 Pulse Oximetry 98 98 Oxygen Delivery Method Room Air Room Air BMI result Body Mass Index 34.3 Labs 12/19/24 13:34 12/26/24 07:59 Medications Medications Current Medications Acetaminophen (Acetaminophen 325 Mg Tablet) 650 mg PO Q6H PRN PRN Reason: Headache/Pain, Scale 1-10 Al Hydroxide/Mg Hydroxide (Magnesium Hydrox/Alum Hydrox 30 Ml Oral.Susp) 30 ml PO Q6H PRN PRN Reason: Heartburn/Nausea Amlodipine Besylate (Amlodipine Besylate 10 Mg Tablet) 10 mg PO DAILY [facility]; Protocol Last Admin: 12/28/24 08:42 Dose: 10 mg Atorvastatin Calcium (Atorvastatin Calcium 80 Mg Tablet) 80 mg PO DAILY [facility] Last Admin: 12/28/24 08:42 Dose: 80 mg Bupropion HCl (Bupropion Hcl Xl 150 Mg Tab.Er.24h) 450 mg PO DAILY [facility] Last Admin: 12/28/24 08:42 Dose: 450 mg Ezetimibe (Ezetimibe 10 Mg Tablet) 10 mg PO DAILY [facility] Last Admin: 12/28/24 08:42 Dose: 10 mg Escitalopram Oxalate (Escitalopram Oxalate 20 Mg Tablet) 20 mg PO BEDTIME [facility] Last Admin: 12/27/24 21:15 Dose: 20 mg Fenofibrate (Fenofibrate 160 Mg Tablet) 160 mg PO DAILY [facility] Last Admin: 12/28/24 08:42 Dose: 160 mg Hydroxyzine HCl (Hydroxyzine Hcl 25 Mg Tablet) 25 mg PO Q6H PRN PRN Reason: mild anxiety Last Admin: 12/27/24 21:15 Dose: 25 mg Lurasidone HCl (Lurasidone Hcl 80 Mg Tablet) 80 mg PO DAILY@1700 [facility] Last Admin: 12/27/24 17:38 Dose: 80 mg Magnesium Hydroxide (Milk Of Magnesia 30 Ml Oral.Susp) 30 ml PO DAILY PRN PRN Reason: Constipation Naltrexone HCl (Naltrexone Hcl 50 Mg Tablet) 50 mg PO DAILY [facility] Last Admin: 12/28/24 08:42 Dose: 50 mg Nicotine (Nicotine 21 Mg Patch.Td24) 21 mg TRANSDERMA DAILY PRN PRN Reason: smoking cessation Nicotine Polacrilex (Nicotine Polacrilex 2 Mg Gum) 4 mg BUCCAL Q2H PRN PRN Reason: Nicotine Cravings Thiamine HCl (Thiamine Hcl 100 Mg Tablet) 100 mg PO DAILY [facility] Last Admin: 12/28/24 08:42 Dose: 100 mg Topiramate (Topiramate 25 Mg Tablet) 50 mg PO BEDTIME [facility] On Hold: 12/26/24 09:00 Last Admin: 12/25/24 21:13 Dose: 50 mg Trazodone HCl (Trazodone Hcl 100 Mg Tablet) 100 mg PO BEDTIME [facility] Last Admin: 12/27/24 21:15 Dose: 100 mg Trazodone HCl (Trazodone Hcl 50 Mg Tablet) 50 mg PO BEDTIME MRX1 PRN PRN Reason: Insomnia Last Admin: 12/27/24 22:42 Dose: 50 mg Allergies Allergies Allergy/AdvReac Type Severity Reaction Status Date / Time No Known Allergies Allergy Verified 12/19/24 13:11 Assessment & Plan Assessment & Plan (1) Major depressive disorder, recurrent severe without psychotic features: Status: Acute Code(s): F33.2 - Major depressive disorder, recurrent severe without psychotic features (2) ANDREW (generalized anxiety disorder): Status: Acute Code(s): F41.1 - Generalized anxiety disorder (3) Alcohol use: Status: Acute Code(s): F10.90 - Alcohol use, unspecified, uncomplicated Plan HPI: 64 yo MWM with worsening depression - hx TRD and getting TMS here to start ECT for ongoing depressive sys not responding to treatment as usual - ongoing depression, hopeless/helpless feelings- no active si , last SA was 12 year ago when he [employer] while blacked out on alcohol. Also rates high anxiety- staying in bed 22 hrs/day- xs sleep, no energy- increased symptoms of depression such as sleeping 22 hours daily, not showering, not engaged; no SI Hx trying multiple antidepressants Reports decreased appetite, weight , energy , anehd[place] severe , and feelings of guilt- Past Psychiatric History: denies prior psychiatric hospitalization last suicide attempt 12 years ago; . He has had 2 prior suicide attempts which he says I was blackout drunk . Hospital course: Patient reports depression/anxiety for years; Patient says lots of med trials, including TMS; Reports history therapy but not consistent restarted drinking 2 weeks ago after 2 years sober; says only 2 nips a day. Initially said he was not drinking at all but patient explains this because his was present and he did not want her to know he relapsed Discussed with patient ECT, risks/side effects and treatment plan; patient eager to embark. Also discussed medication management and he has been on Wellbutrin and Latuda current doses for 2 years and agrees to increase. 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 Denies any alcohol withdrawal and says that his hand shakes her due to Wellbutrin which he gets every day since he has been taking it. Discussed behavioral activation and patient agreed to shower and get dressed. -patient looks like he is in alcohol withdrawal even though he denies it. Will schedule Ativan 1 mg t.i.d. for now to mitigate what is likely withdrawal 12/25 says little better with med increase; still wants ect; says not in any withdrawal -will proceed with ECT 12/26: Patient reports severe anxiety and depression. He has been sleeping well. He has been taking his medications. He attended 1 group so far. He denies SI/HI/AH/VH. Continue current treatment regimen. ECT scheduled tomorrow. 12/27 Talked about addiction to alcohol; patient was sober for 2 years during which time he to today a however he was still quite depressed despite being on medications. Patient initially ambivalent about his need for AA support agreed that it will be difficult for him to remain sober unless really engages in AA and outpatient treatment. Discussed ECT and patient denies any side effects and wants to continue; discussed medications and he agrees to increasing Latuda -says Topamax was for alcohol cravings which he said was helpful; agrees to have it held during ECT 12/28: Continue current management and treatment plan ECT. Plan: CV Q 15 minute checks Ativan 1 mg bid; likely can dc ECT monday Increase to wellbutrin XL 450 mg daily (has been on 300 mg for 2 years) Increase to Latuda 80mg daily (has been on 40 mg for 2 years) Continue Lexapro 20 mg daily Continue Naltrexone 50mg daily HOLD topomax 50mg while getting ECT Continue trazodone 100mg bedtime Past med trials: Not sure therapeutic duration and dose; Abilify Lamictal [place] Paxil Effexor Risperidone Reason for continued inpatient stay Substantial Risk for: harm to self, inability to function and rapid decompensation Time Spent With Patient Time: Total time managing care of this patient today ____ minutes.
[2024-12-28 19:48] VITALS: BP 123/74; PULSE 69; TEMP 36.4; O2SAT 97
[2024-12-28] MEDS: Magnesium Hydrox/Alum Hydrox 30 ML ORAL.SUSP PO (20:44)
[2024-12-29 08:00] VITALS: BP 123/73; PULSE 71; TEMP 36.1; O2SAT 98
[2024-12-29] MEDS: buPROPion HCl XL 150 MG TAB.ER.24H 450 MG PO (08:52)
--- NOTE | 2024-12-29 09:23 | P.PNPSI_ITS ---
Subjective Subjective Date of Service: 12/29/24 Reason For Visit: depression Interim History: Patient tolerating medication changes since admissions and is aware of ECT #2 tomorrow. NPO order for tonight entered. He has no headaches. No confusion. Remains depressed. Denies SI. Future oriented and hopeful. Agrees to continue with course of ECT. Tolerating medications well. Review of Systems Review of Systems Denies any shortness of breath, chest pain, dizziness, lightheadedness, abdominal pain or discomfort, nausea vomiting or diarrhea Constitutional: Reports no additional constitutional complaints, Denies chills, Denies fever(s) and Denies night sweats Eyes: Reports no additional eye complaints, Denies blurry vision, Denies change in vision, Denies diplopia, Denies eye discharge, Denies loss of vision and Denies eye pain Denies dizziness Cardiovascular: Reports no additional cardiovascular complaints, Denies chest pain, Denies lightheadedness, Denies Loss of Consciousness and Denies dyspnea Respiratory: Reports no additional respiratory complaints and Denies dyspnea Gastrointestinal: Reports no additional gastrointestinal complaints, Denies abdominal pain, Denies melena, Denies hematochezia, Denies change in bowel habits and Denies change in stool character Genitourinary: Reports no additional male genitourinary complaints, Denies hematuria, Denies oliguria, Denies difficulty urinating, Denies dysuria, Denies urinary frequency, Denies urinary hesitancy, Denies urinary incontinence and Denies urinary urgency Musculoskeletal: Reports no additional musculoskeletal complaints, Denies numbness and Denies tingling Denies dizziness, Denies loss of vision, Denies numbness and Denies tingling Psychiatric: Reports depression, Denies homicidal ideation and Denies suicidal ideation Endocrine: Reports no additional endocrine complaints Hematologic/Lymphatic: Reports no additional hematologic/lymphatic complaints Allergic/Immunologic: Reports no additional allergic/immunologic complaints Mental Status Exam Mental Status Exam Narrative: Pt is alert and oriented; behavior is superficially cooperative, calm but does not say much; isolative spending most of the time in bed; patient is not in distress; dressed in casual attire, scruffy marginal hygiene; mood is described as little better and affect congruent,still downcast; eye contact appropriate; Speech is sparse, slowed, soft; significant psychomotor retardation present; thought process is goal directed, concrete; Thought content is on tx and otherwise not disclose; no delusional ideations expressed; denies any SI/HI. Denies AVH and there is no evidence of perceptual disturbance. Patients insight and judgment impaired. Patient Appearance: Appropriate and Unkempt Patient Orientation: Person, Place, Time and Situation Level of Consciousness: Awake and Alert Patient Behavior: Passive and Isolative Mood Description: Withdrawn Affect Description: Sad Patient Cognition Impaired: No Ability to Follow Directions: Fair Speech Pattern: Clear Diagnostics Vital Signs (24Hr): Vital Signs - 24 hr 12/28/24 19:48 12/29/24 08:00 Temperature 97.6 F 96.9 F Pulse Rate 69 71 Blood Pressure 123/74 123/73 Pulse Oximetry 97 98 Oxygen Delivery Method Room Air Room Air BMI result Body Mass Index 34.3 Labs 12/19/24 13:34 12/26/24 07:59 Medications Medications Current Medications Acetaminophen (Acetaminophen 325 Mg Tablet) 650 mg PO Q6H PRN PRN Reason: Headache/Pain, Scale 1-10 Al Hydroxide/Mg Hydroxide (Magnesium Hydrox/Alum Hydrox 30 Ml Oral.Susp) 30 ml PO Q6H PRN PRN Reason: Heartburn/Nausea Last Admin: 12/28/24 20:44 Dose: 30 ml Amlodipine Besylate (Amlodipine Besylate 10 Mg Tablet) 10 mg PO DAILY [facility]; Protocol Last Admin: 12/29/24 08:52 Dose: 10 mg Atorvastatin Calcium (Atorvastatin Calcium 80 Mg Tablet) 80 mg PO DAILY [facility] Last Admin: 12/29/24 08:52 Dose: 80 mg Bupropion HCl (Bupropion Hcl Xl 150 Mg Tab.Er.24h) 450 mg PO DAILY [facility] Last Admin: 12/29/24 08:52 Dose: 450 mg Ezetimibe (Ezetimibe 10 Mg Tablet) 10 mg PO DAILY [facility] Last Admin: 12/29/24 08:52 Dose: 10 mg Escitalopram Oxalate (Escitalopram Oxalate 20 Mg Tablet) 20 mg PO BEDTIME [facility] Last Admin: 12/28/24 20:40 Dose: 20 mg Fenofibrate (Fenofibrate 160 Mg Tablet) 160 mg PO DAILY [facility] Last Admin: 12/29/24 08:52 Dose: 160 mg Hydroxyzine HCl (Hydroxyzine Hcl 25 Mg Tablet) 25 mg PO Q6H PRN PRN Reason: mild anxiety Last Admin: 12/28/24 20:40 Dose: 25 mg Lurasidone HCl (Lurasidone Hcl 80 Mg Tablet) 80 mg PO DAILY@1700 [facility] Last Admin: 12/28/24 17:56 Dose: 80 mg Magnesium Hydroxide (Milk Of Magnesia 30 Ml Oral.Susp) 30 ml PO DAILY PRN PRN Reason: Constipation Naltrexone HCl (Naltrexone Hcl 50 Mg Tablet) 50 mg PO DAILY [facility] Last Admin: 12/29/24 08:52 Dose: 50 mg Nicotine (Nicotine 21 Mg Patch.Td24) 21 mg TRANSDERMA DAILY PRN PRN Reason: smoking cessation Nicotine Polacrilex (Nicotine Polacrilex 2 Mg Gum) 4 mg BUCCAL Q2H PRN PRN Reason: Nicotine Cravings Thiamine HCl (Thiamine Hcl 100 Mg Tablet) 100 mg PO DAILY [facility] Last Admin: 12/29/24 08:52 Dose: 100 mg Topiramate (Topiramate 25 Mg Tablet) 50 mg PO BEDTIME [facility] On Hold: 12/26/24 09:00 Last Admin: 12/25/24 21:13 Dose: 50 mg Trazodone HCl (Trazodone Hcl 100 Mg Tablet) 100 mg PO BEDTIME [facility] Last Admin: 12/28/24 20:40 Dose: 100 mg Trazodone HCl (Trazodone Hcl 50 Mg Tablet) 50 mg PO BEDTIME MRX1 PRN PRN Reason: Insomnia Last Admin: 12/27/24 22:42 Dose: 50 mg Allergies Allergies Allergy/AdvReac Type Severity Reaction Status Date / Time No Known Allergies Allergy Verified 12/19/24 13:11 Assessment & Plan Assessment & Plan (1) Major depressive disorder, recurrent severe without psychotic features: Status: Acute Code(s): F33.2 - Major depressive disorder, recurrent severe without psychotic features (2) NADREW (generalized anxiety disorder): Status: Acute Code(s): F41.1 - Generalized anxiety disorder (3) Alcohol use: Status: Acute Code(s): F10.90 - Alcohol use, unspecified, uncomplicated Plan HPI: 64 yo MWM with worsening depression - hx TRD and getting TMS here to start ECT for ongoing depressive sys not responding to treatment as usual - ongoing depression, hopeless/helpless feelings- no active si , last SA was 12 year ago when he [employer] while blacked out on alcohol. Also rates high anxiety- staying in bed 22 hrs/day- xs sleep, no energy- increased symptoms of depression such as sleeping 22 hours daily, not showering, not engaged; no SI Hx trying multiple antidepressants Reports decreased appetite, weight , energy , [place] severe , and feelings of guilt- Past Psychiatric History: denies prior psychiatric hospitalization last suicide attempt 12 years ago; . He has had 2 prior suicide attempts which he says I was blackout drunk . Hospital course: Patient reports depression/anxiety for years; Patient says lots of med trials, including TMS; Reports history therapy but not consistent restarted drinking 2 weeks ago after 2 years sober; says only 2 nips a day. Initially said he was not drinking at all but patient explains this because his was present and he did not want her to know he relapsed Discussed with patient ECT, risks/side effects and treatment plan; patient eager to embark. Also discussed medication management and he has been on Wellbutrin and Latuda current doses for 2 years and agrees to increase. 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 Denies any alcohol withdrawal and says that his hand shakes her due to Wellbutrin which he gets every day since he has been taking it. Discussed behavioral activation and patient agreed to shower and get dressed. -patient looks like he is in alcohol withdrawal even though he denies it. Will schedule Ativan 1 mg t.i.d. for now to mitigate what is likely withdrawal 12/25 says little better with med increase; still wants ect; says not in any withdrawal -will proceed with ECT 12/26: Patient reports severe anxiety and depression. He has been sleeping well. He has been taking his medications. He attended 1 group so far. He denies SI/HI/AH/VH. Continue current treatment regimen. ECT scheduled tomorrow. 12/27 Talked about addiction to alcohol; patient was sober for 2 years during which time he to today a however he was still quite depressed despite being on medications. Patient initially ambivalent about his need for AA support agreed that it will be difficult for him to remain sober unless really engages in AA and outpatient treatment. Discussed ECT and patient denies any side effects and wants to continue; discussed medications and he agrees to increasing Latuda -says Topamax was for alcohol cravings which he said was helpful; agrees to have it held during ECT 12/28: Continue current management and treatment plan ECT. 12/29: continue current management and treatment plan. NPO post MN Plan: CV Q 15 minute checks Ativan 1 mg bid; likely can dc ECT monday Increase to wellbutrin XL 450 mg daily (has been on 300 mg for 2 years) Increase to Latuda 80mg daily (has been on 40 mg for 2 years) Continue Lexapro 20 mg daily Continue Naltrexone 50mg daily HOLD topomax 50mg while getting ECT Continue trazodone 100mg bedtime Past med trials: Not sure therapeutic duration and dose; Abilify Lamictal Toast Paxil Effexor Risperidone Reason for continued inpatient stay Substantial Risk for: harm to self, inability to function and rapid decompensation Time Spent With Patient Time: Total time managing care of this patient today ____ minutes.
[2024-12-29] MEDS: Magnesium Hydrox/Alum Hydrox 30 ML ORAL.SUSP PO (17:05)
[2024-12-29 19:49] VITALS: BP 120/66; PULSE 73; RESP 15; TEMP 36.6; O2SAT 96
[2024-12-30] VITALS (9 sets, daily range): BP systolic 117–155; BP diastolic 66–91; PULSE 66–76; RESP 14–21; TEMP 36.1–36.8; O2SAT 95–98
--- NOTE | 2024-12-30 08:02 | MHC.SHP ---
Pre-Procedural Eval Section A - 24 Hr Update-Section A only Date of Service: 12/30/24 The patient is an INPATIENT: Yes Changes since office visit: Yes Patient answered all questions; No Cold of Flu in the past 2 weeks, No New Medical Problems and No Changes in Medication The patient has been examined within 24 hours of the surgical procedure. The History & Physical has been completed within 30 days and I have reviewed it.: Yes Section B - Complete if H&P > 30 days Chief Complaint: depression Allergies: Allergies Allergy/AdvReac Type Severity Reaction Status Date / Time No Known Allergies Allergy Verified 12/19/24 13:11 Plan Diagnosis/Plan: Unchanged I have reviewed the history and physical and performed a pertinent physical examination on my patient. No changes have occurred unless specified. Time Spent With Patient Time: Total time managing care of this patient today ____ minutes.
--- NOTE | 2024-12-30 08:07 | HO.ANESPROP2 ---
[facility] Active Problems Active Problems: All Active Problems (Updated 12/23/24 @ 10:53 by Marly Aguilar DNP) Hypertriglyceridemia (Acute) Depression (Acute) Elevated LFTs (Acute) Alcohol use (Acute) Fatigue (Acute) ANDREW (generalized anxiety disorder) (Acute) Major depressive disorder, recurrent severe without psychotic features (Acute) Past Medical History Medical History Fatigue Family History Family history of problems with anesthesia: No Surgical History History of Problems with Anesthesia: No Social History Social History Household Members: Spouse Housing: House Do you presently have visiting nurse or other home services: No Alcohol intake: former Patient Tobacco Use Status: Never used Tobacco Smoked in Last 30 Days: No Use of substances other than those prescribed or required for medical reasons: No Currently Displaying Signs/Symptoms of Drug Intoxication Withdrawal: No Have you been hit, kicked, punched, or otherwise hurt by someone within the past year? If so, by whom?: No Do you feel safe in your current relationship?: No Is there a partner from a previous relationship who is making you feel unsafe now?: No Are you made to feel afraid or neglected: No Spiritual Healthcare Practices: none Zoroastrianism Healthcare Practices: none Cultural Healthcare Practices: none Advance Directives: No Advance Directives Information Provided: Yes Do you have thoughts of harming others: None Do you have a plan to hurt others: No Plan Recently lost weight without trying: No How much weight loss: Not applicable Eating poorly because of decreased appetite: No Nutrition screen score: 0 Nutrition Risks: No Nutritional Risk Poor oral hygiene: No service: No Sexual orientation: Straight/Heterosexual Meds Allergies Allergy/AdvReac Type Severity Reaction Status Date / Time No Known Allergies Allergy Verified 12/19/24 13:11 Active Medications: Current Medications Acetaminophen (Acetaminophen 325 Mg Tablet) 650 mg PO Q6H PRN PRN Reason: Headache/Pain, Scale 1-10 Al Hydroxide/Mg Hydroxide (Magnesium Hydrox/Alum Hydrox 30 Ml Oral.Susp) 30 ml PO Q6H PRN PRN Reason: Heartburn/Nausea Last Admin: 12/29/24 17:05 Dose: 30 ml Amlodipine Besylate (Amlodipine Besylate 10 Mg Tablet) 10 mg PO DAILY [facility]; Protocol Last Admin: 12/29/24 08:52 Dose: 10 mg Atorvastatin Calcium (Atorvastatin Calcium 80 Mg Tablet) 80 mg PO DAILY [facility] Last Admin: 12/29/24 08:52 Dose: 80 mg Bupropion HCl (Bupropion Hcl Xl 150 Mg Tab.Er.24h) 450 mg PO DAILY [facility] Last Admin: 12/29/24 08:52 Dose: 450 mg Ezetimibe (Ezetimibe 10 Mg Tablet) 10 mg PO DAILY [facility] Last Admin: 12/29/24 08:52 Dose: 10 mg Escitalopram Oxalate (Escitalopram Oxalate 20 Mg Tablet) 20 mg PO BEDTIME [facility] Last Admin: 12/29/24 20:50 Dose: 20 mg Fenofibrate (Fenofibrate 160 Mg Tablet) 160 mg PO DAILY [facility] Last Admin: 12/29/24 08:52 Dose: 160 mg Hydroxyzine HCl (Hydroxyzine Hcl 25 Mg Tablet) 25 mg PO Q6H PRN PRN Reason: mild anxiety Last Admin: 12/28/24 20:40 Dose: 25 mg Lurasidone HCl (Lurasidone Hcl 80 Mg Tablet) 80 mg PO DAILY@1700 [facility] Last Admin: 12/29/24 17:05 Dose: 80 mg Magnesium Hydroxide (Milk Of Magnesia 30 Ml Oral.Susp) 30 ml PO DAILY PRN PRN Reason: Constipation Naltrexone HCl (Naltrexone Hcl 50 Mg Tablet) 50 mg PO DAILY [facility] Last Admin: 12/29/24 08:52 Dose: 50 mg Nicotine (Nicotine 21 Mg Patch.Td24) 21 mg TRANSDERMA DAILY PRN PRN Reason: smoking cessation Nicotine Polacrilex (Nicotine Polacrilex 2 Mg Gum) 4 mg BUCCAL Q2H PRN PRN Reason: Nicotine Cravings Thiamine HCl (Thiamine Hcl 100 Mg Tablet) 100 mg PO DAILY [facility] Last Admin: 12/29/24 08:52 Dose: 100 mg Topiramate (Topiramate 25 Mg Tablet) 50 mg PO BEDTIME [facility] On Hold: 12/26/24 09:00 Last Admin: 12/25/24 21:13 Dose: 50 mg Trazodone HCl (Trazodone Hcl 100 Mg Tablet) 100 mg PO BEDTIME [facility] Last Admin: 12/29/24 20:50 Dose: 100 mg Trazodone HCl (Trazodone Hcl 50 Mg Tablet) 50 mg PO BEDTIME MRX1 PRN PRN Reason: Insomnia Last Admin: 12/27/24 22:42 Dose: 50 mg Home Medications ?Medication ?Instructions ?Recorded ?Confirmed ?Last Taken ?Type amlodipine 10 mg tablet 10 mg PO DAILY 12/19/24 12/19/24 Unknown History bupropion HCl 300 mg 24 hr tablet, 300 mg PO QAM 12/19/24 12/19/24 Unknown History extended release escitalopram oxalate 20 mg tablet 20 mg PO BEDTIME 12/19/24 12/19/24 Unknown History ezetimibe 10 mg tablet 10 mg PO DAILY 12/19/24 12/19/24 Unknown History fenofibrate 160 mg tablet 160 mg PO DAILY 12/19/24 12/19/24 Unknown History lurasidone 40 mg tablet 40 mg PO QPM 12/19/24 12/19/24 Unknown History metformin 500 mg tablet,extended 500 mg PO DAILY 12/19/24 12/19/24 Unknown History release 24 hr naltrexone 50 mg tablet 50 mg PO DAILY 12/19/24 12/19/24 Unknown History omega-3 acid ethyl esters 1 gram 2 cap PO BID 12/19/24 12/19/24 Unknown History capsule rosuvastatin 20 mg tablet 20 mg PO DAILY 12/19/24 12/19/24 Unknown History topiramate 50 mg tablet 50 mg PO BEDTIME 12/19/24 12/19/24 Unknown History trazodone 100 mg tablet 100 mg PO BEDTIME 12/19/24 12/19/24 Unknown History Exam Height,Weight and Vital Signs: Height 5 ft 8 in Weight 102.3 kg Last Vital Signs Temp 98.3 F 12/30/24 06:55 Pulse 72 12/30/24 06:55 Resp 16 12/30/24 06:55 BP 128/79 12/30/24 06:55 Pulse Ox 98 12/30/24 06:55 O2 Del Method Room Air 12/30/24 06:55 O2 Flow Rate 2 12/27/24 09:00 Pertinent Lab Results Pertinent Lab Results: Laboratory Tests 12/19/24 12/19/24 12/21/24 13:34 16:58 07:31 WBC 7.4 RBC 5.07 Hgb 16.1 Hct 44.1 MCV 87.0 MCH 31.8 MCHC 36.5 H RDW 13.3 Plt Count 212 MPV 8.9 L Immature Gran % (Auto) 0.9 H Neut % (Auto) 52.0 Lymph % (Auto) 36.7 [place] % (Auto) 8.3 Eos % (Auto) 1.4 Baso % (Auto) 0.7 Lymph # (Auto) 2.7 [place] # (Auto) 0.6 Eos # (Auto) 0.1 Baso # (Auto) 0.1 Abs Immat Gran (auto) 0.07 H Absolute Neuts (auto) 3.8 Absolute Nucleated RBC 0.000 Nucleated RBC % (auto) 0.0 Sodium 141 141 Potassium 3.5 3.9 Chloride 106 107 Carbon Dioxide 22 24 Anion Gap 17 14 BUN 11 10 Creatinine 0.92 0.98 Estim Creat Clear Calc 95.3 89.4 Estimated GFR > 60 > 60 Random Glucose 90 107 Estimat Average Glucose 88 Hemoglobin A1c % 4.7 Calcium 8.6 9.1 Magnesium 1.8 Total Bilirubin 0.9 1.2 H AST 206 H 122 H ALT 182 H 115 H Alkaline Phosphatase 109 95 Total Protein 7.0 6.5 Albumin 4.4 4.2 Triglycerides 217 H Cholesterol 141 LDL Cholesterol, Calc 53 HDL Cholesterol 45 TSH 1.59 2.23 Urine Color Dark Yellow Urine Appearance Clear Urine pH 6.5 Ur Specific Calvin 1.020 Urine Protein Trace Urine Glucose (UA) Negative Urine Ketones Trace Urine Blood Negative Urine Nitrite Negative Ur Leukocyte Esterase Small (1+) H Urine RBC 0-2 Urine WBC 6-10 H Ur Squamous Epith Cells 3-5 Urine Bacteria None Seen Hyaline Casts 3-5 Salicylates < 5.0 L Urine Opiates Screen Not Detected Ur Buprenorphine Scrn Not Detected Ur Oxycodone Screen Not Detected Urine Methadone Screen Not Detected Urine Fentanyl Screen Not Detected Acetaminophen < 3 Ur Barbiturates Screen Not Detected Ur Phencyclidine Scrn Not Detected Ur Amphetamines Screen Not Detected U Benzodiazepines Scrn Not Detected Urine Cocaine Screen Not Detected U Marijuana (THC) Screen Not Detected Ethyl Alcohol 127 12/26/24 07:59 WBC RBC Hgb Hct MCV MCH MCHC RDW Plt Count MPV Immature Gran % (Auto) Neut % (Auto) Lymph % (Auto) [place] % (Auto) Eos % (Auto) Baso % (Auto) Lymph # (Auto) [place] # (Auto) Eos # (Auto) Baso # (Auto) Abs Immat Gran (auto) Absolute Neuts (auto) Absolute Nucleated RBC Nucleated RBC % (auto) Sodium Potassium Chloride Carbon Dioxide Anion Gap BUN Creatinine 1.06 Estim Creat Clear Calc 82.6 Estimated GFR > 60 Random Glucose Estimat Average Glucose Hemoglobin A1c % Calcium Magnesium Total Bilirubin AST ALT Alkaline Phosphatase Total Protein Albumin Triglycerides Cholesterol LDL Cholesterol, Calc HDL Cholesterol TSH Urine Color Urine Appearance Urine pH Ur Specific [place] Urine Protein Urine Glucose (UA) Urine Ketones Urine Blood Urine Nitrite Ur Leukocyte Esterase Urine RBC Urine WBC Ur Squamous Epith Cells Urine Bacteria Hyaline Casts Salicylates Urine Opiates Screen Ur Buprenorphine Scrn Ur Oxycodone Screen Urine Methadone Screen Urine Fentanyl Screen Acetaminophen Ur Barbiturates Screen Ur Phencyclidine Scrn Ur Amphetamines Screen U Benzodiazepines Scrn Urine Cocaine Screen U Marijuana (THC) Screen Ethyl Alcohol Airway Mallampati Class: III TM Dist: >3cm Neck ROM: Full Assessment and Plan Assessment Anesthesia Assessment: Anesthesia Plan Discussed and Chart Reviewed Final Anesthetic Review Family History of Problems with Anesthesia: No History of Problems with Anesthesia: No NPO: Yes ASA Class: III Final Preanesthetic Review: No Changes in Pt Med Stat, Meds/Allgs Chart Reviewed, Consent Obtained/Reviewed and Anes Risks/Benef Reviewed Patient Risk: Intermediate Procedure Risk: Intermediate Anesthetic Plan Anesthetic Plan: GA Disposition: Standard PACU
--- NOTE | 2024-12-30 08:46 | HO.ECTPROC ---
ECT Procedure Note Diagnosis/Treatment Date of Service: 12/30/24 Diagnosis: Major Depressive Disorder Previous ECT Date: 12/27/24 Treatment: Series Interval Clinical Notes: Pt with short sz 1st tx change to 0.5 program succ was decreased to 180 mg . No c/o side effects after first tx . Was given prop 30 mg post had brief htn Time: Total time managing care of this patient today 30____ minutes. ECT Settings Device: THYMATRON DGx Electrode Placement: Right Unilateral Program/Pulse Width: 0.50 Energy Percent: 100 Seizure Duration By EEG (in seconds): 28 Medications Administration General Anesthetic: Etomidate (16) Muscle Relaxant: Succinylcholine (180) Ancillary Medications Miscillaneous Medications: Propofol (30 mg) Airway Management Airway Management: Bag Mask Ventilation Treatment Recommendations No Changes Recommended: No change Notes: topamax was d/c Pt Tolerated Procedure w/o Issue: Yes
[2024-12-30] MEDS: buPROPion HCl XL 150 MG TAB.ER.24H 450 MG PO (09:28)
[2024-12-30] MEDS: Magnesium Hydrox/Alum Hydrox 30 ML ORAL.SUSP PO (20:23)
--- NOTE | 2024-12-30 23:09 | P.PNPSI_ITS ---
Subjective Subjective Date of Service: 12/30/24 Reason For Visit: depression Subjective Notes: Conditional Voluntary Healthcare Proxy: No Guardianship: No Medical Problems Affecting Mental Status: No Interim History: Medical record and nursing notes reviewed; case discussed during rounds with team/nursing staff, and met with patient for supportive therapy/psychoeducation, as well as medication management. Patient slept for 8 hours, was medication compliant, denies side effects from medication. Review the medication list with him and he not remember what he has been taking. Patient denies side effects from ECT this his 2nd session. Denies headache, memory issues. He observe attended groups after ECT. Reports anxiety and depression a 7/10 which he reported has been much better compared to the past week.flat affect, but pleasant, and cooperative. Denies safety concerns. Denies hallucinations. Medication Compliance: Yes Side effects from medications: No Attending Groups: Yes Review of Systems Acute medical concerns: No Medical Review of Systems: unchanged Review of Systems Review of Systems Constitutional: Denies fatigue and Denies fever(s) Cardiovascular: Denies chest pain and Denies dyspnea Respiratory: Denies dyspnea Gastrointestinal: Denies abdominal pain Psychiatric: denies suicidal ideation Endocrine: Denies fatigue Yes all other systems are reviewed and are negative Mental Status Exam Mental Status Exam Narrative: Pt is alert and oriented; behavior is cooperative, calm, visible and attended groups after ECT; patient is not in distress; dressed in casual attire, scruffy marginal hygiene; mood is described as depressed and anxious but improved compared to past and affect congruent, flat, eye contact appropriate; Speech is sparse, slowed, soft; significant psychomotor retardation present; thought process is goal directed, concrete; Thought content is on tx and otherwise not disclose; no delusional ideations expressed; denies any SI/HI. Denies AVH and there is no evidence of perceptual disturbance. Patients insight and judgment fair. Diagnostics Vital Signs (24Hr): Vital Signs - 24 hr 12/30/24 06:55 12/30/24 08:30 12/30/24 08:35 Temperature 98.3 F 98.3 F Pulse Rate 72 66 72 Respiratory Rate 16 21 H 17 Blood Pressure 128/79 155/78 H 136/81 Pulse Oximetry 98 97 97 Oxygen Delivery Method Room Air Nasal Cannula with ETCO2 Nasal Cannula with ETCO2 Oxygen Flow Rate 2 2 12/30/24 08:40 12/30/24 08:45 12/30/24 09:00 Temperature 97.0 F Pulse Rate 71 73 76 Respiratory Rate 14 16 18 Blood Pressure 134/80 140/91 H 126/74 Pulse Oximetry 97 95 96 Oxygen Delivery Method Nasal Cannula with ETCO2 Room Air Room Air Oxygen Flow Rate 2 12/30/24 09:07 12/30/24 09:25 12/30/24 20:00 Temperature 98.0 F 97.3 F 98.3 F Pulse Rate 70 76 67 Respiratory Rate 15 17 Blood Pressure 144/84 H 126/74 117/66 Pulse Oximetry 98 96 97 Oxygen Delivery Method Room Air Room Air Oxygen Flow Rate BMI result Body Mass Index 34.3 Labs 12/19/24 13:34 12/26/24 07:59 Medications Medications Current Medications Acetaminophen (Acetaminophen 325 Mg Tablet) 650 mg PO Q6H PRN PRN Reason: Headache/Pain, Scale 1-10 Al Hydroxide/Mg Hydroxide (Magnesium Hydrox/Alum Hydrox 30 Ml Oral.Susp) 30 ml PO Q6H PRN PRN Reason: Heartburn/Nausea Last Admin: 12/30/24 20:23 Dose: 30 ml Amlodipine Besylate (Amlodipine Besylate 10 Mg Tablet) 10 mg PO DAILY [facility]; Protocol Last Admin: 12/30/24 09:30 Dose: 10 mg Atorvastatin Calcium (Atorvastatin Calcium 80 Mg Tablet) 80 mg PO DAILY [facility] Last Admin: 12/30/24 09:29 Dose: 80 mg Bupropion HCl (Bupropion Hcl Xl 150 Mg Tab.Er.24h) 450 mg PO DAILY [facility] Last Admin: 12/30/24 09:28 Dose: 450 mg Ezetimibe (Ezetimibe 10 Mg Tablet) 10 mg PO DAILY [facility] Last Admin: 12/30/24 09:30 Dose: 10 mg Escitalopram Oxalate (Escitalopram Oxalate 20 Mg Tablet) 20 mg PO BEDTIME [facility] Last Admin: 12/30/24 20:22 Dose: 20 mg Fenofibrate (Fenofibrate 160 Mg Tablet) 160 mg PO DAILY [facility] Last Admin: 12/30/24 09:29 Dose: 160 mg Hydroxyzine HCl (Hydroxyzine Hcl 25 Mg Tablet) 25 mg PO Q6H PRN PRN Reason: mild anxiety Last Admin: 12/28/24 20:40 Dose: 25 mg Lurasidone HCl (Lurasidone Hcl 80 Mg Tablet) 80 mg PO DAILY@1700 [facility] Last Admin: 12/30/24 16:38 Dose: 80 mg Magnesium Hydroxide (Milk Of Magnesia 30 Ml Oral.Susp) 30 ml PO DAILY PRN PRN Reason: Constipation Naloxone HCl (Naloxone Hcl 0.4 Mg/Ml Vial) 0.04 mg IVPUSH Q5M PRN PRN Reason: Excessive sedation or RR < 8 Naltrexone HCl (Naltrexone Hcl 50 Mg Tablet) 50 mg PO DAILY [facility] Last Admin: 12/30/24 09:29 Dose: 50 mg Nicotine (Nicotine 21 Mg Patch.Td24) 21 mg TRANSDERMA DAILY PRN PRN Reason: smoking cessation Nicotine Polacrilex (Nicotine Polacrilex 2 Mg Gum) 4 mg BUCCAL Q2H PRN PRN Reason: Nicotine Cravings Thiamine HCl (Thiamine Hcl 100 Mg Tablet) 100 mg PO DAILY [facility] Last Admin: 12/30/24 09:29 Dose: 100 mg Trazodone HCl (Trazodone Hcl 100 Mg Tablet) 100 mg PO BEDTIME [facility] Last Admin: 12/30/24 20:22 Dose: 100 mg Trazodone HCl (Trazodone Hcl 50 Mg Tablet) 50 mg PO BEDTIME MRX1 PRN PRN Reason: Insomnia Last Admin: 12/27/24 22:42 Dose: 50 mg Allergies Allergies Allergy/AdvReac Type Severity Reaction Status Date / Time No Known Allergies Allergy Verified 12/19/24 13:11 Assessment & Plan Assessment & Plan (1) Major depressive disorder, recurrent severe without psychotic features: Status: Acute Code(s): F33.2 - Major depressive disorder, recurrent severe without psychotic features (2) ANDREW (generalized anxiety disorder): Status: Acute Code(s): F41.1 - Generalized anxiety disorder (3) Alcohol use: Status: Acute Code(s): F10.90 - Alcohol use, unspecified, uncomplicated Plan HPI: 64 yo MWM with worsening depression - hx TRD and getting TMS here to start ECT for ongoing depressive sys not responding to treatment as usual - ongoing depression, hopeless/helpless feelings- no active si , last SA was 12 year ago when he [employer] while blacked out on alcohol. Also rates high anxiety- staying in bed 22 hrs/day- xs sleep, no energy- increased symptoms of depression such as sleeping 22 hours daily, not showering, not engaged; no SI Hx trying multiple antidepressants Reports decreased appetite, weight , energy , anehdonia severe , and feelings of guilt- Past Psychiatric History: denies prior psychiatric hospitalization last suicide attempt 12 years ago; . He has had 2 prior suicide attempts which he says I was blackout drunk . Hospital course: Patient reports depression/anxiety for years; Patient says lots of med trials, including TMS; Reports history therapy but not consistent restarted drinking 2 weeks ago after 2 years sober; says only 2 nips a day. Initially said he was not drinking at all but patient explains this because his was present and he did not want her to know he relapsed Discussed with patient ECT, risks/side effects and treatment plan; patient eager to embark. Also discussed medication management and he has been on Wellbutrin and Latuda current doses for 2 years and agrees to increase. Discussed behavioral activation and patient says he will engage 12/24 Review of chart shows that patient's BAL was >200 and given his size, not possible that he was only drinking 2 nips a day; internal communications writer presented this to patient who confirmed that he was drinking closer to 5 drinks a day. Denies any alcohol withdrawal and says that his hand shakes her due to Wellbutrin which he gets every day since he has been taking it. Discussed behavioral activation and patient agreed to shower and get dressed. -patient looks like he is in alcohol withdrawal even though he denies it. Will schedule Ativan 1 mg t.i.d. for now to mitigate what is likely withdrawal 12/25 says little better with med increase; still wants ect; says not in any withdrawal -will proceed with ECT 12/26: Patient reports severe anxiety and depression. He has been sleeping well. He has been taking his medications. He attended 1 group so far. He denies SI/HI/AH/VH. Continue current treatment regimen. ECT scheduled tomorrow. 12/27 Talked about addiction to alcohol; patient was sober for 2 years during which time he to today a however he was still quite depressed despite being on medications. Patient initially ambivalent about his need for AA support agreed that it will be difficult for him to remain sober unless really engages in AA and outpatient treatment. Discussed ECT and patient denies any side effects and wants to continue; discussed medications and he agrees to increasing Latuda -says Topamax was for alcohol cravings which he said was helpful; agrees to have it held during ECT 12/28: Continue current management and treatment plan ECT. 12/29: continue current management and treatment plan. NPO post MN. 12/30/24: Patient slept for 8 hours, was medication compliant, denies side effects from medication. Review the medication list with him as he not remember what he has been taking. Patient denies side effects from ECT this his 2nd session. Denies headache, memory issues. He observe attended groups after ECT. Reports anxiety and depression a 7/10 which he reported has been much better compared to the past week.flat affect, but pleasant, and cooperative. Denies safety concerns. Denies hallucinations. Plan: CV Q 15 minute checks ECT Mon, Mon, and Monday Continue wiht wellbutrin XL 450 mg daily (has been on 300 mg for 2 years) Continue with Latuda 80mg daily (has been on 40 mg for 2 years) Continue Lexapro 20 mg daily Continue Naltrexone 50mg daily HOLD topomax 50mg while getting ECT Continue trazodone 100mg bedtime Past med trials: Not sure therapeutic duration and dose; Abilify Lamictal [place] Paxil Effexor Risperidone Reason for continued inpatient stay Substantial Risk for: med/psych decompensation Time Spent With Patient Time: Total time managing care of this patient today ____ minutes.
[2024-12-31 08:00] VITALS: BP 125/71; PULSE 73; RESP 18; TEMP 36.1; O2SAT 96
[2024-12-31] MEDS: buPROPion HCl XL 150 MG TAB.ER.24H 450 MG PO (08:23)
--- NOTE | 2024-12-31 09:59 | HO.PSYCHPN ---
Subjective Subjective Date of Service: 12/31/24 Reason For Visit: depression Interim History: Met with patient; discussed with team Patient noticeably brighter, attending groups. He says he starting to feel better as well. No troubles with ECT and wants to continue. Mental Status Exam Mental Status Exam Narrative: Pt is alert and oriented; behavior is cooperative, friendly and calm, more social and engaged; patient is not in distress; dressed in casual attire, unkempt and scruffy but adequate hygiene; mood is described as good and affect brighter and more calm; eye contact appropriate; Speech is normal rate, volume and prosody and not pressured; no psychomotor agitation/retardation present; thought process is organized and goal directed; Thought content is on tx; otherwise pertinent to relevant topics and without any delusional content, paranoid ideations or grandiosity; denies any SI/HI. Denies AVH and there is no evidence of perceptual disturbance. Patients insight and judgment improved Diagnostics Vital Signs (24Hr): Vital Signs - 24 hr 12/30/24 20:00 12/31/24 08:00 Temperature 98.3 F 97.0 F Pulse Rate 67 73 Respiratory Rate 18 Blood Pressure 117/66 125/71 Pulse Oximetry 97 96 Oxygen Delivery Method Room Air Room Air BMI result Body Mass Index 34.3 Labs 12/19/24 13:34 12/26/24 07:59 Medications Medications Current Medications Acetaminophen (Acetaminophen 325 Mg Tablet) 650 mg PO Q6H PRN PRN Reason: Headache/Pain, Scale 1-10 Al Hydroxide/Mg Hydroxide (Magnesium Hydrox/Alum Hydrox 30 Ml Oral.Susp) 30 ml PO Q6H PRN PRN Reason: Heartburn/Nausea Last Admin: 12/30/24 20:23 Dose: 30 ml Amlodipine Besylate (Amlodipine Besylate 10 Mg Tablet) 10 mg PO DAILY [facility]; Protocol Last Admin: 12/31/24 08:25 Dose: 10 mg Atorvastatin Calcium (Atorvastatin Calcium 80 Mg Tablet) 80 mg PO DAILY [facility] Last Admin: 12/31/24 08:26 Dose: 80 mg Bupropion HCl (Bupropion Hcl Xl 150 Mg Tab.Er.24h) 450 mg PO DAILY [facility] Last Admin: 12/31/24 08:23 Dose: 450 mg Ezetimibe (Ezetimibe 10 Mg Tablet) 10 mg PO DAILY [facility] Last Admin: 12/31/24 08:24 Dose: 10 mg Escitalopram Oxalate (Escitalopram Oxalate 20 Mg Tablet) 20 mg PO BEDTIME [facility] Last Admin: 12/30/24 20:22 Dose: 20 mg Fenofibrate (Fenofibrate 160 Mg Tablet) 160 mg PO DAILY [facility] Last Admin: 12/31/24 08:25 Dose: 160 mg Hydroxyzine HCl (Hydroxyzine Hcl 25 Mg Tablet) 25 mg PO Q6H PRN PRN Reason: mild anxiety Last Admin: 12/28/24 20:40 Dose: 25 mg Lurasidone HCl (Lurasidone Hcl 80 Mg Tablet) 80 mg PO DAILY@1700 [facility] Last Admin: 12/30/24 16:38 Dose: 80 mg Magnesium Hydroxide (Milk Of Magnesia 30 Ml Oral.Susp) 30 ml PO DAILY PRN PRN Reason: Constipation Naloxone HCl (Naloxone Hcl 0.4 Mg/Ml Vial) 0.04 mg IVPUSH Q5M PRN PRN Reason: Excessive sedation or RR < 8 Naltrexone HCl (Naltrexone Hcl 50 Mg Tablet) 50 mg PO DAILY [facility] Last Admin: 12/31/24 08:24 Dose: 50 mg Nicotine (Nicotine 21 Mg Patch.Td24) 21 mg TRANSDERMA DAILY PRN PRN Reason: smoking cessation Nicotine Polacrilex (Nicotine Polacrilex 2 Mg Gum) 4 mg BUCCAL Q2H PRN PRN Reason: Nicotine Cravings Thiamine HCl (Thiamine Hcl 100 Mg Tablet) 100 mg PO DAILY [facility] Last Admin: 12/31/24 08:25 Dose: 100 mg Trazodone HCl (Trazodone Hcl 100 Mg Tablet) 100 mg PO BEDTIME [facility] Last Admin: 12/30/24 20:22 Dose: 100 mg Trazodone HCl (Trazodone Hcl 50 Mg Tablet) 50 mg PO BEDTIME MRX1 PRN PRN Reason: Insomnia Last Admin: 12/27/24 22:42 Dose: 50 mg Allergies Allergies Allergy/AdvReac Type Severity Reaction Status Date / Time No Known Allergies Allergy Verified 12/19/24 13:11 Assessment & Plan Assessment & Plan (1) Major depressive disorder, recurrent severe without psychotic features: Status: Acute Code(s): F33.2 - Major depressive disorder, recurrent severe without psychotic features (2) ANDREW (generalized anxiety disorder): Status: Acute Code(s): F41.1 - Generalized anxiety disorder (3) Alcohol use: Status: Acute Code(s): F10.90 - Alcohol use, unspecified, uncomplicated Plan HPI: 64 yo MWM with worsening depression - hx TRD and getting TMS here to start ECT for ongoing depressive sys not responding to treatment as usual - ongoing depression, hopeless/helpless feelings- no active si , last SA was 12 year ago when he [employer] while blacked out on alcohol. Also rates high anxiety- staying in bed 22 hrs/day- xs sleep, no energy- increased symptoms of depression such as sleeping 22 hours daily, not showering, not engaged; no SI Hx trying multiple antidepressants Reports decreased appetite, weight , energy , anehdonia severe , and feelings of guilt- Past Psychiatric History: denies prior psychiatric hospitalization last suicide attempt 12 years ago; . He has had 2 prior suicide attempts which he says I was blackout drunk . Hospital course: Patient reports depression/anxiety for years; Patient says lots of med trials, including TMS; Reports history therapy but not consistent restarted drinking 2 weeks ago after 2 years sober; says only 2 nips a day. Initially said he was not drinking at all but patient explains this because his was present and he did not want her to know he relapsed Discussed with patient ECT, risks/side effects and treatment plan; patient eager to embark. Also discussed medication management and he has been on Wellbutrin and Latuda current doses for 2 years and agrees to increase. Discussed behavioral activation and patient says he will engage 12/24 Review of chart shows that patient's BAL was >200 and given his size, not possible that he was only drinking 2 nips a day; newswriter presented this to patient who confirmed that he was drinking closer to 5 drinks a day. Denies any alcohol withdrawal and says that his hand shakes her due to Wellbutrin which he gets every day since he has been taking it. Discussed behavioral activation and patient agreed to shower and get dressed. -patient looks like he is in alcohol withdrawal even though he denies it. Will schedule Ativan 1 mg t.i.d. for now to mitigate what is likely withdrawal 12/25 says little better with med increase; still wants ect; says not in any withdrawal -will proceed with ECT 12/26: Patient reports severe anxiety and depression. He has been sleeping well. He has been taking his medications. He attended 1 group so far. He denies SI/HI/AH/VH. Continue current treatment regimen. ECT scheduled tomorrow. 12/27 Talked about addiction to alcohol; patient was sober for 2 years during which time he to today a however he was still quite depressed despite being on medications. Patient initially ambivalent about his need for AA support agreed that it will be difficult for him to remain sober unless really engages in AA and outpatient treatment. Discussed ECT and patient denies any side effects and wants to continue; discussed medications and he agrees to increasing Latuda -says Topamax was for alcohol cravings which he said was helpful; agrees to have it held during ECT 12/28: Continue current management and treatment plan ECT. 12/29: continue current management and treatment plan. NPO post MN. 12/30/24: Patient slept for 8 hours, was medication compliant, denies side effects from medication. Review the medication list with him as he not remember what he has been taking. Patient denies side effects from ECT this his 2nd session. Denies headache, memory issues. He observe attended groups after ECT. Reports anxiety and depression a 11/28 which he reported has been much better compared to the past week.flat affect, but pleasant, and cooperative. Denies safety concerns. Denies hallucinations. 12/31 Patient noticeably brighter, attending groups. He says he starting to feel better as well. No troubles with ECT and wants to continue. -continue with ECT -will leave medication as current regimen Plan: CV Q 15 minute checks ECT Mon, Mon, and Monday Continue wellbutrin XL 450 mg daily (has been on 300 mg for 2 years) Continue with Latuda 80mg daily (has been on 40 mg for 2 years) Continue Lexapro 20 mg daily Continue Naltrexone 50mg daily HOLD topomax 50mg while getting ECT Continue trazodone 100mg bedtime Past med trials: Not sure therapeutic duration and dose; Abilify Lamictal [place] Paxil Effexor Risperidone Patient educated on: diagnosis, medication risk/benefits, substance abuse and ECT Informed Consent: understands Reason for continued inpatient stay Substantial Risk for: rapid decompensation Time Spent With Patient Time: Total time managing care of this patient today ____ minutes.
[2024-12-31 19:44] VITALS: BP 134/73; PULSE 94; TEMP 36.2; O2SAT 97
[2025-01-01] VITALS (8 sets, daily range): BP systolic 119–175; BP diastolic 67–93; PULSE 64–80; RESP 14–18; TEMP 36.1–36.7; O2SAT 94–97
[2025-01-01] MEDS: Lactated Ringers 1,000 ML 100 ML IVCONT (07:10)
--- NOTE | 2025-01-01 07:50 | MHC.SHP ---
Pre-Procedural Eval Section A - 24 Hr Update-Section A only Date of Service: 01/01/25 The patient is an INPATIENT: Yes Changes since office visit: Yes Patient answered all questions; No Cold of Flu in the past 2 weeks, No New Medical Problems and No Changes in Medication The patient has been examined within 24 hours of the surgical procedure. The History & Physical has been completed within 30 days and I have reviewed it.: Yes Section B - Complete if H&P > 30 days Chief Complaint: depression Allergies: Allergies Allergy/AdvReac Type Severity Reaction Status Date / Time No Known Allergies Allergy Verified 12/19/24 13:11 Plan Diagnosis/Plan: Unchanged I have reviewed the history and physical and performed a pertinent physical examination on my patient. No changes have occurred unless specified. Time Spent With Patient Time: Total time managing care of this patient today ____ minutes.
--- NOTE | 2025-01-01 07:51 | HO.ECTPROC ---
ECT Procedure Note Diagnosis/Treatment Date of Service: 01/01/25 Diagnosis: Major Depressive Disorder Previous ECT Date: 12/30/24 Current Treatment Number: 3 Treatment: Series Interval Clinical Notes: PT SOMEWHAT BRIGHTER mood improved not confused Time: Total time managing care of this patient today _30___ minutes. ECT Settings Device: THYMATRON DGx Program/Pulse Width: 0.50 Energy Percent: 100 Seizure Duration By EEG (in seconds): 29 Medications Administration General Anesthetic: Etomidate (16) Muscle Relaxant: Succinylcholine (180) Ancillary Medications Miscillaneous Medications: Propofol (30) Airway Management Airway Management: Bag Mask Ventilation Treatment Recommendations No Changes Recommended: No change Pt Tolerated Procedure w/o Issue: Yes
--- NOTE | 2025-01-01 09:09 | HO.ANESPROP2 ---
HPI - Anesthesia Eval Consult details Narrative: For ECT - MDD PMFSH Active Problems Active Problems: All Active Problems Hypertriglyceridemia (Acute) Depression (Acute) Elevated LFTs (Acute) Alcohol use (Acute) Fatigue (Acute) ANDREW (generalized anxiety disorder) (Acute) Major depressive disorder, recurrent severe without psychotic features (Acute) Past Medical History Medical History Fatigue Family History Family history of problems with anesthesia: No Surgical History History of Problems with Anesthesia: No Social History Social History Household Members: Spouse Housing: House Do you presently have visiting nurse or other home services: No Alcohol intake: former Patient Tobacco Use Status: Never used Tobacco Smoked in Last 30 Days: No Use of substances other than those prescribed or required for medical reasons: No Currently Displaying Signs/Symptoms of Drug Intoxication Withdrawal: No Have you been hit, kicked, punched, or otherwise hurt by someone within the past year? If so, by whom?: No Do you feel safe in your current relationship?: No Is there a partner from a previous relationship who is making you feel unsafe now?: No Are you made to feel afraid or neglected: No Spiritual Healthcare Practices: none Buddhism Healthcare Practices: none Cultural Healthcare Practices: none Advance Directives: No Advance Directives Information Provided: Yes Do you have thoughts of harming others: None Do you have a plan to hurt others: No Plan Recently lost weight without trying: No How much weight loss: Not applicable Eating poorly because of decreased appetite: No Nutrition screen score: 0 Nutrition Risks: No Nutritional Risk Poor oral hygiene: No service: No Sexual orientation: Straight/Heterosexual Meds Allergies Allergy/AdvReac Type Severity Reaction Status Date / Time No Known Allergies Allergy Verified 12/19/24 13:11 Active Medications: Current Medications Acetaminophen (Acetaminophen 325 Mg Tablet) 650 mg PO Q6H PRN PRN Reason: Headache/Pain, Scale 1-10 Al Hydroxide/Mg Hydroxide (Magnesium Hydrox/Alum Hydrox 30 Ml Oral.Susp) 30 ml PO Q6H PRN PRN Reason: Heartburn/Nausea Last Admin: 12/30/24 20:23 Dose: 30 ml Amlodipine Besylate (Amlodipine Besylate 10 Mg Tablet) 10 mg PO DAILY [facility]; Protocol Last Admin: 12/31/24 08:25 Dose: 10 mg Atorvastatin Calcium (Atorvastatin Calcium 80 Mg Tablet) 80 mg PO DAILY [facility] Last Admin: 12/31/24 08:26 Dose: 80 mg Bupropion HCl (Bupropion Hcl Xl 150 Mg Tab.Er.24h) 450 mg PO DAILY [facility] Last Admin: 12/31/24 08:23 Dose: 450 mg Ezetimibe (Ezetimibe 10 Mg Tablet) 10 mg PO DAILY [facility] Last Admin: 12/31/24 08:24 Dose: 10 mg Escitalopram Oxalate (Escitalopram Oxalate 20 Mg Tablet) 20 mg PO BEDTIME [facility] Last Admin: 12/31/24 20:05 Dose: 20 mg Fenofibrate (Fenofibrate 160 Mg Tablet) 160 mg PO DAILY [facility] Last Admin: 12/31/24 08:25 Dose: 160 mg Hydroxyzine HCl (Hydroxyzine Hcl 25 Mg Tablet) 25 mg PO Q6H PRN PRN Reason: mild anxiety Last Admin: 12/28/24 20:40 Dose: 25 mg Lactated Ringer's (Lr) 1,000 mls @ 100 mls/hr IVCONT .Q10H [facility] Last Admin: 01/01/25 07:10 Dose: 100 mls/hr Lurasidone HCl (Lurasidone Hcl 80 Mg Tablet) 80 mg PO DAILY@1700 [facility] Last Admin: 12/31/24 16:02 Dose: 80 mg Magnesium Hydroxide (Milk Of Magnesia 30 Ml Oral.Susp) 30 ml PO DAILY PRN PRN Reason: Constipation Naloxone HCl (Naloxone Hcl 0.4 Mg/Ml Vial) 0.04 mg IVPUSH Q5M PRN PRN Reason: Excessive sedation or RR < 8 Naltrexone HCl (Naltrexone Hcl 50 Mg Tablet) 50 mg PO DAILY [facility] Last Admin: 12/31/24 08:24 Dose: 50 mg Nicotine (Nicotine 21 Mg Patch.Td24) 21 mg TRANSDERMA DAILY PRN PRN Reason: smoking cessation Nicotine Polacrilex (Nicotine Polacrilex 2 Mg Gum) 4 mg BUCCAL Q2H PRN PRN Reason: Nicotine Cravings Thiamine HCl (Thiamine Hcl 100 Mg Tablet) 100 mg PO DAILY [facility] Last Admin: 12/31/24 08:25 Dose: 100 mg Trazodone HCl (Trazodone Hcl 100 Mg Tablet) 100 mg PO BEDTIME [facility] Last Admin: 12/31/24 20:05 Dose: 100 mg Trazodone HCl (Trazodone Hcl 50 Mg Tablet) 50 mg PO BEDTIME MRX1 PRN PRN Reason: Insomnia Last Admin: 12/27/24 22:42 Dose: 50 mg Home Medications ?Medication ?Instructions ?Recorded ?Confirmed ?Last Taken ?Type amlodipine 10 mg tablet 10 mg PO DAILY 12/19/24 12/19/24 Unknown History bupropion HCl 300 mg 24 hr tablet, 300 mg PO QAM 12/19/24 12/19/24 Unknown History extended release escitalopram oxalate 20 mg tablet 20 mg PO BEDTIME 12/19/24 12/19/24 Unknown History ezetimibe 10 mg tablet 10 mg PO DAILY 12/19/24 12/19/24 Unknown History fenofibrate 160 mg tablet 160 mg PO DAILY 12/19/24 12/19/24 Unknown History lurasidone 40 mg tablet 40 mg PO QPM 12/19/24 12/19/24 Unknown History metformin 500 mg tablet,extended 500 mg PO DAILY 12/19/24 12/19/24 Unknown History release 24 hr naltrexone 50 mg tablet 50 mg PO DAILY 12/19/24 12/19/24 Unknown History omega-3 acid ethyl esters 1 gram 2 cap PO BID 12/19/24 12/19/24 Unknown History capsule rosuvastatin 20 mg tablet 20 mg PO DAILY 12/19/24 12/19/24 Unknown History topiramate 50 mg tablet 50 mg PO BEDTIME 12/19/24 12/19/24 Unknown History trazodone 100 mg tablet 100 mg PO BEDTIME 12/19/24 12/19/24 Unknown History Exam Height,Weight and Vital Signs: Height 5 ft 8 in Weight 102.3 kg Last Vital Signs Temp 97.6 F 01/01/25 08:58 Pulse 76 01/01/25 08:58 Resp 14 01/01/25 08:58 BP 142/88 H 01/01/25 08:58 Pulse Ox 95 01/01/25 08:58 O2 Del Method Room Air 01/01/25 08:58 O2 Flow Rate 2 12/30/24 08:40 Pertinent Lab Results Pertinent Lab Results: Laboratory Tests 12/19/24 12/19/24 12/21/24 13:34 16:58 07:31 WBC 7.4 RBC 5.07 Hgb 16.1 Hct 44.1 MCV 87.0 MCH 31.8 MCHC 36.5 H RDW 13.3 Plt Count 212 MPV 8.9 L Immature Gran % (Auto) 0.9 H Neut % (Auto) 52.0 Lymph % (Auto) 36.7 [place] % (Auto) 8.3 Eos % (Auto) 1.4 Baso % (Auto) 0.7 Lymph # (Auto) 2.7 [place] # (Auto) 0.6 Eos # (Auto) 0.1 Baso # (Auto) 0.1 Abs Immat Gran (auto) 0.07 H Absolute Neuts (auto) 3.8 Absolute Nucleated RBC 0.000 Nucleated RBC % (auto) 0.0 Sodium 141 141 Potassium 3.5 3.9 Chloride 106 107 Carbon Dioxide 22 24 Anion Gap 17 14 BUN 11 10 Creatinine 0.92 0.98 Estim Creat Clear Calc 95.3 89.4 Estimated GFR > 60 > 60 Random Glucose 90 107 Estimat Average Glucose 88 Hemoglobin A1c % 4.7 Calcium 8.6 9.1 Magnesium 1.8 Total Bilirubin 0.9 1.2 H AST 206 H 122 H ALT 182 H 115 H Alkaline Phosphatase 109 95 Total Protein 7.0 6.5 Albumin 4.4 4.2 Triglycerides 217 H Cholesterol 141 LDL Cholesterol, Calc 53 HDL Cholesterol 45 TSH 1.59 2.23 Urine Color Dark Yellow Urine Appearance Clear Urine pH 6.5 Ur Specific [place] 1.020 Urine Protein Trace Urine Glucose (UA) Negative Urine Ketones Trace Urine Blood Negative Urine Nitrite Negative Ur Leukocyte Esterase Small (1+) H Urine RBC 0-2 Urine WBC 6-10 H Ur Squamous Epith Cells 3-5 Urine Bacteria None Seen Hyaline Casts 3-5 Salicylates < 5.0 L Urine Opiates Screen Not Detected Ur Buprenorphine Scrn Not Detected Ur Oxycodone Screen Not Detected Urine Methadone Screen Not Detected Urine Fentanyl Screen Not Detected Acetaminophen < 3 Ur Barbiturates Screen Not Detected Ur Phencyclidine Scrn Not Detected Ur Amphetamines Screen Not Detected U Benzodiazepines Scrn Not Detected Urine Cocaine Screen Not Detected U Marijuana (THC) Screen Not Detected Ethyl Alcohol 127 12/26/24 07:59 WBC RBC Hgb Hct MCV MCH MCHC RDW Plt Count MPV Immature Gran % (Auto) Neut % (Auto) Lymph % (Auto) [place] % (Auto) Eos % (Auto) Baso % (Auto) Lymph # (Auto) [place] # (Auto) Eos # (Auto) Baso # (Auto) Abs Immat Gran (auto) Absolute Neuts (auto) Absolute Nucleated RBC Nucleated RBC % (auto) Sodium Potassium Chloride Carbon Dioxide Anion Gap BUN Creatinine 1.06 Estim Creat Clear Calc 82.6 Estimated GFR > 60 Random Glucose Estimat Average Glucose Hemoglobin A1c % Calcium Magnesium Total Bilirubin AST ALT Alkaline Phosphatase Total Protein Albumin Triglycerides Cholesterol LDL Cholesterol, Calc HDL Cholesterol TSH Urine Color Urine Appearance Urine pH Ur Specific [place] Urine Protein Urine Glucose (UA) Urine Ketones Urine Blood Urine Nitrite Ur Leukocyte Esterase Urine RBC Urine WBC Ur Squamous Epith Cells Urine Bacteria Hyaline Casts Salicylates Urine Opiates Screen Ur Buprenorphine Scrn Ur Oxycodone Screen Urine Methadone Screen Urine Fentanyl Screen Acetaminophen Ur Barbiturates Screen Ur Phencyclidine Scrn Ur Amphetamines Screen U Benzodiazepines Scrn Urine Cocaine Screen U Marijuana (THC) Screen Ethyl Alcohol Airway Mallampati Class: II TM Dist: <=3cm Neck ROM: Full Heart: ok Lungs: ok Assessment and Plan Assessment Anesthesia Assessment: Anesthesia Plan Discussed and Chart Reviewed Final Anesthetic Review Family History of Problems with Anesthesia: No History of Problems with Anesthesia: No NPO: Yes ASA Class: III Final Preanesthetic Review: No Changes in Pt Med Stat, Meds/Allgs Chart Reviewed, Consent Obtained/Reviewed and Anes Risks/Benef Reviewed Patient Risk: Intermediate Procedure Risk: Intermediate Anesthetic Plan Anesthetic Plan: GA and Agree w/ Assess. and Plan Disposition: Standard PACU
[2025-01-01] MEDS: buPROPion HCl XL 150 MG TAB.ER.24H 450 MG PO (09:28)
--- NOTE | 2025-01-01 15:22 | P.PNPSI_ITS ---
Subjective Subjective Date of Service: 01/01/25 Reason For Visit: depression Interim History: met with patient; discussed with team pt reports still depressed and still worried, but overall feels depression slowly improving; he has more energy, does not feel as shut down and more optimistic. Discussed medications, ECT and pt wants to continue and reassess after a few more ECT treatments. Discussed Partial day program post discharge and he agrees good idea. Mental Status Exam Mental Status Exam Narrative: Pt is alert and oriented; behavior is cooperative, friendly and calm, more social and engaged; patient is not in distress; dressed in casual attire, unkempt and scruffy but adequate hygiene; mood is described as depressed....but better and affect still somewhat blunted, but overall brighter and more calm; eye contact appropriate; Speech is normal rate, volume and prosody and not pressured; some retardation present; thought process is organized and goal directed; Thought content is on tx; otherwise pertinent to relevant topics and without any delusional content, paranoid ideations or grandiosity; denies any SI/HI. Denies AVH and there is no evidence of perceptual disturbance. Patients insight and judgment improving Diagnostics Vital Signs (24Hr): Vital Signs - 24 hr 12/31/24 19:44 01/01/25 06:38 01/01/25 08:27 Temperature 97.2 F 97.6 F 97.2 F Pulse Rate 94 64 78 Respiratory Rate 18 14 Blood Pressure 134/73 147/84 H 175/74 H Pulse Oximetry 97 97 95 Oxygen Delivery Method Room Air Room Air Room Air 01/01/25 08:32 01/01/25 08:37 01/01/25 08:42 Temperature Pulse Rate 76 76 75 Respiratory Rate 16 18 15 Blood Pressure 146/78 H 129/93 H 144/80 H Pulse Oximetry 95 95 95 Oxygen Delivery Method Room Air Room Air Room Air 01/01/25 08:58 01/01/25 09:23 Temperature 97.6 F 96.9 F Pulse Rate 76 70 Respiratory Rate 14 16 Blood Pressure 142/88 H 119/72 Pulse Oximetry 95 96 Oxygen Delivery Method Room Air BMI result Body Mass Index 34.3 Labs 12/19/24 13:34 12/26/24 07:59 Medications Medications Current Medications Acetaminophen (Acetaminophen 325 Mg Tablet) 650 mg PO Q6H PRN PRN Reason: Headache/Pain, Scale 1-10 Al Hydroxide/Mg Hydroxide (Magnesium Hydrox/Alum Hydrox 30 Ml Oral.Susp) 30 ml PO Q6H PRN PRN Reason: Heartburn/Nausea Last Admin: 12/30/24 20:23 Dose: 30 ml Amlodipine Besylate (Amlodipine Besylate 10 Mg Tablet) 10 mg PO DAILY [facility]; Protocol Last Admin: 01/01/25 09:29 Dose: 10 mg Atorvastatin Calcium (Atorvastatin Calcium 80 Mg Tablet) 80 mg PO DAILY [facility] Last Admin: 01/01/25 09:29 Dose: 80 mg Bupropion HCl (Bupropion Hcl Xl 150 Mg Tab.Er.24h) 450 mg PO DAILY [facility] Last Admin: 01/01/25 09:28 Dose: 450 mg Ezetimibe (Ezetimibe 10 Mg Tablet) 10 mg PO DAILY [facility] Last Admin: 01/01/25 09:28 Dose: 10 mg Escitalopram Oxalate (Escitalopram Oxalate 20 Mg Tablet) 20 mg PO BEDTIME [facility] Last Admin: 12/31/24 20:05 Dose: 20 mg Fenofibrate (Fenofibrate 160 Mg Tablet) 160 mg PO DAILY [facility] Last Admin: 01/01/25 09:28 Dose: 160 mg Hydroxyzine HCl (Hydroxyzine Hcl 25 Mg Tablet) 25 mg PO Q6H PRN PRN Reason: mild anxiety Last Admin: 12/28/24 20:40 Dose: 25 mg Lactated Ringer's (Lr) 1,000 mls @ 100 mls/hr IVCONT .Q10H [facility] Last Infusion: 01/01/25 10:24 Dose: Infused Lurasidone HCl (Lurasidone Hcl 80 Mg Tablet) 80 mg PO DAILY@1700 [facility] Last Admin: 12/31/24 16:02 Dose: 80 mg Magnesium Hydroxide (Milk Of Magnesia 30 Ml Oral.Susp) 30 ml PO DAILY PRN PRN Reason: Constipation Naloxone HCl (Naloxone Hcl 0.4 Mg/Ml Vial) 0.04 mg IVPUSH Q5M PRN PRN Reason: Excessive sedation or RR < 8 Naltrexone HCl (Naltrexone Hcl 50 Mg Tablet) 50 mg PO DAILY [facility] Last Admin: 01/01/25 09:29 Dose: 50 mg Nicotine (Nicotine 21 Mg Patch.Td24) 21 mg TRANSDERMA DAILY PRN PRN Reason: smoking cessation Nicotine Polacrilex (Nicotine Polacrilex 2 Mg Gum) 4 mg BUCCAL Q2H PRN PRN Reason: Nicotine Cravings Thiamine HCl (Thiamine Hcl 100 Mg Tablet) 100 mg PO DAILY [facility] Last Admin: 01/01/25 09:28 Dose: 100 mg Trazodone HCl (Trazodone Hcl 100 Mg Tablet) 100 mg PO BEDTIME [facility] Last Admin: 12/31/24 20:05 Dose: 100 mg Trazodone HCl (Trazodone Hcl 50 Mg Tablet) 50 mg PO BEDTIME MRX1 PRN PRN Reason: Insomnia Last Admin: 12/27/24 22:42 Dose: 50 mg Allergies Allergies Allergy/AdvReac Type Severity Reaction Status Date / Time No Known Allergies Allergy Verified 12/19/24 13:11 Assessment & Plan Assessment & Plan (1) Major depressive disorder, recurrent severe without psychotic features: Status: Acute Code(s): F33.2 - Major depressive disorder, recurrent severe without psychotic features (2) ANDREW (generalized anxiety disorder): Status: Acute Code(s): F41.1 - Generalized anxiety disorder (3) Alcohol use: Status: Acute Code(s): F10.90 - Alcohol use, unspecified, uncomplicated Plan HPI: 64 yo MWM with worsening depression - hx TRD and getting TMS here to start ECT for ongoing depressive sys not responding to treatment as usual - ongoing depression, hopeless/helpless feelings- no active si , last SA was 12 year ago when he [facility] while blacked out on alcohol. Also rates high anxiety- staying in bed 22 hrs/day- xs sleep, no energy- increased symptoms of depression such as sleeping 22 hours daily, not showering, not engaged; no SI Hx trying multiple antidepressants Reports decreased appetite, weight , energy , [place] severe , and feelings of guilt- Past Psychiatric History: denies prior psychiatric hospitalization last suicide attempt 12 years ago; . He has had 2 prior suicide attempts which he says I was blackout drunk . Hospital course: Patient reports depression/anxiety for years; Patient says lots of med trials, including TMS; Reports history therapy but not consistent restarted drinking 2 weeks ago after 2 years sober; says only 2 nips a day. Initially said he was not drinking at all but patient explains this because his was present and he did not want her to know he relapsed Discussed with patient ECT, risks/side effects and treatment plan; patient eager to embark. Also discussed medication management and he has been on Wellbutrin and Latuda current doses for 2 years and agrees to increase. Discussed behavioral activation and patient says he will engage 12/24 Review of chart shows that patient's BAL was >200 and given his size, not possible that he was only drinking 2 nips a day; underwriter mortgage loan presented this to patient who confirmed that he was drinking closer to 5 drinks a day. Denies any alcohol withdrawal and says that his hand shakes her due to Wellbutrin which he gets every day since he has been taking it. Discussed behavioral activation and patient agreed to shower and get dressed. -patient looks like he is in alcohol withdrawal even though he denies it. Will schedule Ativan 1 mg t.i.d. for now to mitigate what is likely withdrawal 12/25 says little better with med increase; still wants ect; says not in any withdrawal -will proceed with ECT 12/26: Patient reports severe anxiety and depression. He has been sleeping well. He has been taking his medications. He attended 1 group so far. He denies SI/HI/AH/VH. Continue current treatment regimen. ECT scheduled tomorrow. 12/27 Talked about addiction to alcohol; patient was sober for 2 years during which time he to today a however he was still quite depressed despite being on medications. Patient initially ambivalent about his need for AA support agreed that it will be difficult for him to remain sober unless really engages in AA and outpatient treatment. Discussed ECT and patient denies any side effects and wants to continue; discussed medications and he agrees to increasing Latuda -says Topamax was for alcohol cravings which he said was helpful; agrees to have it held during ECT 12/28: Continue current management and treatment plan ECT. 12/29: continue current management and treatment plan. NPO post MN. 12/30/24: Patient slept for 8 hours, was medication compliant, denies side effects from medication. Review the medication list with him as he not remember what he has been taking. Patient denies side effects from ECT this his 2nd session. Denies headache, memory issues. He observe attended groups after ECT. Reports anxiety and depression a 11/28 which he reported has been much better compared to the past week.flat affect, but pleasant, and cooperative. Denies safety concerns. Denies hallucinations. 12/31 Patient noticeably brighter, attending groups. He says he starting to feel better as well. No troubles with ECT and wants to continue. -continue with ECT -will leave medication as current regimen 01/01 pt reports still depressed and still worried, but overall feels depression slowly improving; he has more energy, does not feel as shut down and more optimistic. Discussed medications, ECT and pt wants to continue and reassess after a few more ECT treatments. Discussed Partial day program post discharge and he agrees good idea. Impression: pt starting to improve, but remains fragile and requires additional ECT treatments and continued improvement before can conclude treatment effect. Plan: CV Q 15 minute checks ECT Mon, Mon, and Monday Continue wellbutrin XL 450 mg daily (has been on 300 mg for 2 years) Continue with Latuda 80mg daily (has been on 40 mg for 2 years) Continue Lexapro 20 mg daily Continue Naltrexone 50mg daily HOLD topomax 50mg while getting ECT Continue trazodone 100mg bedtime Past med trials: Not sure therapeutic duration and dose; Abilify Lamictal [place] Paxil Effexor Risperidone Patient educated on: diagnosis, medication risk/benefits and ECT Informed Consent: understands Reason for continued inpatient stay Substantial Risk for: rapid decompensation Time Spent With Patient Time: Total time managing care of this patient today ____ minutes.
[2025-01-01] MEDS: Magnesium Hydrox/Alum Hydrox 30 ML ORAL.SUSP PO (15:26)
[2025-01-02 08:00] VITALS: BP 132/72; PULSE 68; RESP 18; TEMP 36.6; O2SAT 96
[2025-01-02] MEDS: buPROPion HCl XL 150 MG TAB.ER.24H 450 MG PO (08:27)
--- NOTE | 2025-01-02 09:57 | P.PNPSI_ITS ---
Subjective Subjective Date of Service: 01/02/25 Reason For Visit: depression Interim History: Met with patient; discussed with team depression remains but improved; talked with patients who agrees he's starting to do better and she is hopeful saying first time in a decade she is seeing improvement. She shared that he has always been a man of few words and rarely shares much about himself. Discussed ECT plan with (and Pt); family meeting scheduled for next week Mental Status Exam Mental Status Exam Narrative: Pt is alert and oriented; behavior is cooperative, friendly and calm, more social and engaged; patient is not in distress; dressed in casual attire, unkempt and scruffy but adequate hygiene; mood is described as depressed....but better and affect still somewhat blunted, but overall brighter and more calm; eye contact appropriate; Speech is normal rate, volume and prosody and not pressured; some retardation present; thought process is organized and goal directed; Thought content is on tx; otherwise pertinent to relevant topics and without any delusional content, paranoid ideations or grandiosity; denies any SI/HI. Denies AVH and there is no evidence of perceptual disturbance. Patients insight and judgment fair. Diagnostics Vital Signs (24Hr): Vital Signs - 24 hr 01/01/25 20:09 01/02/25 08:00 Temperature 98.1 F 97.9 F Pulse Rate 80 68 Respiratory Rate 16 18 Blood Pressure 136/67 132/72 Pulse Oximetry 94 96 Oxygen Delivery Method Room Air Room Air BMI result Body Mass Index 34.3 Labs 12/19/24 13:34 12/26/24 07:59 Medications Medications Current Medications Acetaminophen (Acetaminophen 325 Mg Tablet) 650 mg PO Q6H PRN PRN Reason: Headache/Pain, Scale 1-10 Al Hydroxide/Mg Hydroxide (Magnesium Hydrox/Alum Hydrox 30 Ml Oral.Susp) 30 ml PO Q6H PRN PRN Reason: Heartburn/Nausea Last Admin: 01/01/25 15:26 Dose: 30 ml Amlodipine Besylate (Amlodipine Besylate 10 Mg Tablet) 10 mg PO DAILY PAYAM; Protocol Last Admin: 01/02/25 08:26 Dose: 10 mg Atorvastatin Calcium (Atorvastatin Calcium 80 Mg Tablet) 80 mg PO DAILY PAYAM Last Admin: 01/02/25 08:27 Dose: 80 mg Bupropion HCl (Bupropion Hcl Xl 150 Mg Tab.Er.24h) 450 mg PO DAILY [facility] Last Admin: 01/02/25 08:27 Dose: 450 mg Ezetimibe (Ezetimibe 10 Mg Tablet) 10 mg PO DAILY [facility] Last Admin: 01/02/25 08:27 Dose: 10 mg Escitalopram Oxalate (Escitalopram Oxalate 20 Mg Tablet) 20 mg PO BEDTIME [facility] Last Admin: 01/01/25 21:13 Dose: 20 mg Fenofibrate (Fenofibrate 160 Mg Tablet) 160 mg PO DAILY [facility] Last Admin: 01/02/25 08:26 Dose: 160 mg Hydroxyzine HCl (Hydroxyzine Hcl 25 Mg Tablet) 25 mg PO Q6H PRN PRN Reason: mild anxiety Last Admin: 12/28/24 20:40 Dose: 25 mg Lurasidone HCl (Lurasidone Hcl 80 Mg Tablet) 80 mg PO DAILY@1700 [facility] Last Admin: 01/01/25 17:24 Dose: 80 mg Magnesium Hydroxide (Milk Of Magnesia 30 Ml Oral.Susp) 30 ml PO DAILY PRN PRN Reason: Constipation Naloxone HCl (Naloxone Hcl 0.4 Mg/Ml Vial) 0.04 mg IVPUSH Q5M PRN PRN Reason: Excessive sedation or RR < 8 Naltrexone HCl (Naltrexone Hcl 50 Mg Tablet) 50 mg PO DAILY [facility] Last Admin: 01/02/25 08:27 Dose: 50 mg Nicotine (Nicotine 21 Mg Patch.Td24) 21 mg TRANSDERMA DAILY PRN PRN Reason: smoking cessation Nicotine Polacrilex (Nicotine Polacrilex 2 Mg Gum) 4 mg BUCCAL Q2H PRN PRN Reason: Nicotine Cravings Thiamine HCl (Thiamine Hcl 100 Mg Tablet) 100 mg PO DAILY [facility] Last Admin: 01/02/25 08:26 Dose: 100 mg Trazodone HCl (Trazodone Hcl 100 Mg Tablet) 100 mg PO BEDTIME [facility] Last Admin: 01/01/25 21:13 Dose: 100 mg Trazodone HCl (Trazodone Hcl 50 Mg Tablet) 50 mg PO BEDTIME MRX1 PRN PRN Reason: Insomnia Last Admin: 12/27/24 22:42 Dose: 50 mg Allergies Allergies Allergy/AdvReac Type Severity Reaction Status Date / Time No Known Allergies Allergy Verified 12/19/24 13:11 Assessment & Plan Assessment & Plan (1) Major depressive disorder, recurrent severe without psychotic features: Status: Acute Code(s): F33.2 - Major depressive disorder, recurrent severe without psychotic features (2) ANDREW (generalized anxiety disorder): Status: Acute Code(s): F41.1 - Generalized anxiety disorder (3) Alcohol use: Status: Acute Code(s): F10.90 - Alcohol use, unspecified, uncomplicated Plan HPI: 64 yo MWM with worsening depression - hx TRD and getting TMS here to start ECT for ongoing depressive sys not responding to treatment as usual - ongoing depression, hopeless/helpless feelings- no active si , last SA was 12 year ago when he [employer] while blacked out on alcohol. Also rates high anxiety- staying in bed 22 hrs/day- xs sleep, no energy- increased symptoms of depression such as sleeping 22 hours daily, not showering, not engaged; no SI Hx trying multiple antidepressants Reports decreased appetite, weight , energy , [place] severe , and feelings of guilt- Past Psychiatric History: denies prior psychiatric hospitalization last suicide attempt 12 years ago; . He has had 2 prior suicide attempts which he says I was blackout drunk . Hospital course: Patient reports depression/anxiety for years; Patient says lots of med trials, including TMS; Reports history therapy but not consistent restarted drinking 2 weeks ago after 2 years sober; says only 2 nips a day. Initially said he was not drinking at all but patient explains this because his was present and he did not want her to know he relapsed Discussed with patient ECT, risks/side effects and treatment plan; patient eager to embark. Also discussed medication management and he has been on Wellbutrin and Latuda current doses for 2 years and agrees to increase. Discussed behavioral activation and patient says he will engage 12/24 Review of chart shows that patient's BAL was >200 and given his size, not possible that he was only drinking 2 nips a day; magazine writer presented this to patient who confirmed that he was drinking closer to 5 drinks a day. Denies any alcohol withdrawal and says that his hand shakes her due to Wellbutrin which he gets every day since he has been taking it. Discussed behavioral activation and patient agreed to shower and get dressed. -patient looks like he is in alcohol withdrawal even though he denies it. Will schedule Ativan 1 mg t.i.d. for now to mitigate what is likely withdrawal 12/25 says little better with med increase; still wants ect; says not in any withdrawal -will proceed with ECT 12/26: Patient reports severe anxiety and depression. He has been sleeping well. He has been taking his medications. He attended 1 group so far. He denies SI/HI/AH/VH. Continue current treatment regimen. ECT scheduled tomorrow. 12/27 Talked about addiction to alcohol; patient was sober for 2 years during which time he to today a however he was still quite depressed despite being on medications. Patient initially ambivalent about his need for AA support agreed that it will be difficult for him to remain sober unless really engages in AA and outpatient treatment. Discussed ECT and patient denies any side effects and wants to continue; discussed medications and he agrees to increasing Latuda -says Topamax was for alcohol cravings which he said was helpful; agrees to have it held during ECT 12/28: Continue current management and treatment plan ECT. 12/29: continue current management and treatment plan. NPO post MN. 12/30/24: Patient slept for 8 hours, was medication compliant, denies side effects from medication. Review the medication list with him as he not remember what he has been taking. Patient denies side effects from ECT this his 2nd session. Denies headache, memory issues. He observe attended groups after ECT. Reports anxiety and depression a 11/28 which he reported has been much better compared to the past week.flat affect, but pleasant, and cooperative. Denies safety concerns. Denies hallucinations. 12/31 Patient noticeably brighter, attending groups. He says he starting to feel better as well. No troubles with ECT and wants to continue. -continue with ECT -will leave medication as current regimen 01/01 pt reports still depressed and still worried, but overall feels depression slowly improving; he has more energy, does not feel as shut down and more optimistic. Discussed medications, ECT and pt wants to continue and reassess after a few more ECT treatments. Discussed Partial day program post discharge and he agrees good idea. 01/02 remains slowly improving; continue ECT; family meeting next week. agrees improving. Pt agrees with partial day program Impression: pt starting to improve, but remains fragile and requires additional ECT treatments and continued improvement before can conclude treatment effect. Plan: CV Q 15 minute checks ECT Mon, Mon, and Monday Continue wellbutrin XL 450 mg daily (has been on 300 mg for 2 years) Continue with Latuda 80mg daily (has been on 40 mg for 2 years) Continue Lexapro 20 mg daily Continue Naltrexone 50mg daily HOLD topomax 50mg while getting ECT Continue trazodone 100mg bedtime Past med trials: Not sure therapeutic duration and dose; Abilify Lamictal [place] Paxil Effexor Risperidone Patient educated on: diagnosis and ECT Informed Consent: understands Reason for continued inpatient stay Substantial Risk for: rapid decompensation Time Spent With Patient Time: Total time managing care of this patient today ____ minutes.
[2025-01-02] MEDS: Magnesium Hydrox/Alum Hydrox 30 ML ORAL.SUSP PO (11:26)
[2025-01-02 20:00] VITALS: BP 129/75; PULSE 72; RESP 16; TEMP 36.4; O2SAT 98
[2025-01-03] VITALS (9 sets, daily range): BP systolic 121–206; BP diastolic 71–89; PULSE 67–78; RESP 16–18; TEMP 36–37.2; O2SAT 95–97
--- NOTE | 2025-01-03 08:41 | HO.ANESPROP2 ---
[facility] Active Problems Active Problems: All Active Problems (Updated 12/23/24 @ 10:53 by Marly Aguilar DNP) Hypertriglyceridemia (Acute) Depression (Acute) Elevated LFTs (Acute) Alcohol use (Acute) Fatigue (Acute) ANDREW (generalized anxiety disorder) (Acute) Major depressive disorder, recurrent severe without psychotic features (Acute) Past Medical History Medical History Fatigue Family History Family history of problems with anesthesia: No Surgical History History of Problems with Anesthesia: No Social History Social History Household Members: Spouse Housing: House Do you presently have visiting nurse or other home services: No Alcohol intake: former Patient Tobacco Use Status: Never used Tobacco Smoked in Last 30 Days: No Use of substances other than those prescribed or required for medical reasons: No Currently Displaying Signs/Symptoms of Drug Intoxication Withdrawal: No Have you been hit, kicked, punched, or otherwise hurt by someone within the past year? If so, by whom?: No Do you feel safe in your current relationship?: No Is there a partner from a previous relationship who is making you feel unsafe now?: No Are you made to feel afraid or neglected: No Spiritual Healthcare Practices: none Caodaism Healthcare Practices: none Cultural Healthcare Practices: none Advance Directives: No Advance Directives Information Provided: Yes Do you have thoughts of harming others: None Do you have a plan to hurt others: No Plan Recently lost weight without trying: No How much weight loss: Not applicable Eating poorly because of decreased appetite: No Nutrition screen score: 0 Nutrition Risks: No Nutritional Risk Poor oral hygiene: No service: No Sexual orientation: Straight/Heterosexual Meds Allergies Allergy/AdvReac Type Severity Reaction Status Date / Time No Known Allergies Allergy Verified 12/19/24 13:11 Active Medications: Current Medications Acetaminophen (Acetaminophen 325 Mg Tablet) 650 mg PO Q6H PRN PRN Reason: Headache/Pain, Scale 1-10 Al Hydroxide/Mg Hydroxide (Magnesium Hydrox/Alum Hydrox 30 Ml Oral.Susp) 30 ml PO Q6H PRN PRN Reason: Heartburn/Nausea Last Admin: 01/02/25 11:26 Dose: 30 ml Amlodipine Besylate (Amlodipine Besylate 10 Mg Tablet) 10 mg PO DAILY [facility]; Protocol Last Admin: 01/02/25 08:26 Dose: 10 mg Atorvastatin Calcium (Atorvastatin Calcium 80 Mg Tablet) 80 mg PO DAILY [facility] Last Admin: 01/02/25 08:27 Dose: 80 mg Bupropion HCl (Bupropion Hcl Xl 150 Mg Tab.Er.24h) 450 mg PO DAILY [facility] Last Admin: 01/02/25 08:27 Dose: 450 mg Ezetimibe (Ezetimibe 10 Mg Tablet) 10 mg PO DAILY [facility] Last Admin: 01/02/25 08:27 Dose: 10 mg Escitalopram Oxalate (Escitalopram Oxalate 20 Mg Tablet) 20 mg PO BEDTIME [facility] Last Admin: 01/02/25 21:02 Dose: 20 mg Fenofibrate (Fenofibrate 160 Mg Tablet) 160 mg PO DAILY [facility] Last Admin: 01/02/25 08:26 Dose: 160 mg Hydroxyzine HCl (Hydroxyzine Hcl 25 Mg Tablet) 25 mg PO Q6H PRN PRN Reason: mild anxiety Last Admin: 12/28/24 20:40 Dose: 25 mg Lurasidone HCl (Lurasidone Hcl 80 Mg Tablet) 80 mg PO DAILY@1700 [facility] Last Admin: 01/02/25 16:56 Dose: 80 mg Magnesium Hydroxide (Milk Of Magnesia 30 Ml Oral.Susp) 30 ml PO DAILY PRN PRN Reason: Constipation Naloxone HCl (Naloxone Hcl 0.4 Mg/Ml Vial) 0.04 mg IVPUSH Q5M PRN PRN Reason: Excessive sedation or RR < 8 Naltrexone HCl (Naltrexone Hcl 50 Mg Tablet) 50 mg PO DAILY [facility] Last Admin: 01/02/25 08:27 Dose: 50 mg Nicotine (Nicotine 21 Mg Patch.Td24) 21 mg TRANSDERMA DAILY PRN PRN Reason: smoking cessation Nicotine Polacrilex (Nicotine Polacrilex 2 Mg Gum) 4 mg BUCCAL Q2H PRN PRN Reason: Nicotine Cravings Omeprazole (Omeprazole 20 Mg Capsule.Dr) 20 mg PO BEDTIME [facility] Last Admin: 01/02/25 21:02 Dose: 20 mg Thiamine HCl (Thiamine Hcl 100 Mg Tablet) 100 mg PO DAILY [facility] Last Admin: 01/02/25 08:26 Dose: 100 mg Trazodone HCl (Trazodone Hcl 100 Mg Tablet) 100 mg PO BEDTIME [facility] Last Admin: 01/02/25 21:02 Dose: 100 mg Trazodone HCl (Trazodone Hcl 50 Mg Tablet) 50 mg PO BEDTIME MRX1 PRN PRN Reason: Insomnia Last Admin: 12/27/24 22:42 Dose: 50 mg Home Medications ?Medication ?Instructions ?Recorded ?Confirmed ?Last Taken ?Type amlodipine 10 mg tablet 10 mg PO DAILY 12/19/24 12/19/24 Unknown History bupropion HCl 300 mg 24 hr tablet, 300 mg PO QAM 12/19/24 12/19/24 Unknown History extended release escitalopram oxalate 20 mg tablet 20 mg PO BEDTIME 12/19/24 12/19/24 Unknown History ezetimibe 10 mg tablet 10 mg PO DAILY 12/19/24 12/19/24 Unknown History fenofibrate 160 mg tablet 160 mg PO DAILY 12/19/24 12/19/24 Unknown History lurasidone 40 mg tablet 40 mg PO QPM 12/19/24 12/19/24 Unknown History metformin 500 mg tablet,extended 500 mg PO DAILY 12/19/24 12/19/24 Unknown History release 24 hr naltrexone 50 mg tablet 50 mg PO DAILY 12/19/24 12/19/24 Unknown History omega-3 acid ethyl esters 1 gram 2 cap PO BID 12/19/24 12/19/24 Unknown History capsule rosuvastatin 20 mg tablet 20 mg PO DAILY 12/19/24 12/19/24 Unknown History topiramate 50 mg tablet 50 mg PO BEDTIME 12/19/24 12/19/24 Unknown History trazodone 100 mg tablet 100 mg PO BEDTIME 12/19/24 12/19/24 Unknown History Exam Height,Weight and Vital Signs: Height 5 ft 8 in Weight 102.3 kg Last Vital Signs Temp 96.8 F 01/03/25 07:51 Pulse 71 01/03/25 07:51 Resp 18 01/03/25 07:51 BP 122/75 01/03/25 07:51 Pulse Ox 96 01/03/25 07:51 O2 Del Method Room Air 01/03/25 07:51 O2 Flow Rate 2 12/30/24 08:40 Pertinent Lab Results Pertinent Lab Results: Laboratory Tests 12/19/24 12/19/24 12/21/24 13:34 16:58 07:31 WBC 7.4 RBC 5.07 Hgb 16.1 Hct 44.1 MCV 87.0 MCH 31.8 MCHC 36.5 H RDW 13.3 Plt Count 212 MPV 8.9 L Immature Gran % (Auto) 0.9 H Neut % (Auto) 52.0 Lymph % (Auto) 36.7 Tate % (Auto) 8.3 Eos % (Auto) 1.4 Baso % (Auto) 0.7 Lymph # (Auto) 2.7 Tate # (Auto) 0.6 Eos # (Auto) 0.1 Baso # (Auto) 0.1 Abs Immat Gran (auto) 0.07 H Absolute Neuts (auto) 3.8 Absolute Nucleated RBC 0.000 Nucleated RBC % (auto) 0.0 Sodium 141 141 Potassium 3.5 3.9 Chloride 106 107 Carbon Dioxide 22 24 Anion Gap 17 14 BUN 11 10 Creatinine 0.92 0.98 Estim Creat Clear Calc 95.3 89.4 Estimated GFR > 60 > 60 Random Glucose 90 107 Estimat Average Glucose 88 Hemoglobin A1c % 4.7 Calcium 8.6 9.1 Magnesium 1.8 Total Bilirubin 0.9 1.2 H AST 206 H 122 H ALT 182 H 115 H Alkaline Phosphatase 109 95 Total Protein 7.0 6.5 Albumin 4.4 4.2 Triglycerides 217 H Cholesterol 141 LDL Cholesterol, Calc 53 HDL Cholesterol 45 TSH 1.59 2.23 Urine Color Dark Yellow Urine Appearance Clear Urine pH 6.5 Ur Specific [place] 1.020 Urine Protein Trace Urine Glucose (UA) Negative Urine Ketones Trace Urine Blood Negative Urine Nitrite Negative Ur Leukocyte Esterase Small (1+) H Urine RBC 0-2 Urine WBC 6-10 H Ur Squamous Epith Cells 3-5 Urine Bacteria None Seen Hyaline Casts 3-5 Salicylates < 5.0 L Urine Opiates Screen Not Detected Ur Buprenorphine Scrn Not Detected Ur Oxycodone Screen Not Detected Urine Methadone Screen Not Detected Urine Fentanyl Screen Not Detected Acetaminophen < 3 Ur Barbiturates Screen Not Detected Ur Phencyclidine Scrn Not Detected Ur Amphetamines Screen Not Detected U Benzodiazepines Scrn Not Detected Urine Cocaine Screen Not Detected U Marijuana (THC) Screen Not Detected Ethyl Alcohol 127 12/26/24 07:59 WBC RBC Hgb Hct MCV MCH MCHC RDW Plt Count MPV Immature Gran % (Auto) Neut % (Auto) Lymph % (Auto) Tate % (Auto) Eos % (Auto) Baso % (Auto) Lymph # (Auto) Tate # (Auto) Eos # (Auto) Baso # (Auto) Abs Immat Gran (auto) Absolute Neuts (auto) Absolute Nucleated RBC Nucleated RBC % (auto) Sodium Potassium Chloride Carbon Dioxide Anion Gap BUN Creatinine 1.06 Estim Creat Clear Calc 82.6 Estimated GFR > 60 Random Glucose Estimat Average Glucose Hemoglobin A1c % Calcium Magnesium Total Bilirubin AST ALT Alkaline Phosphatase Total Protein Albumin Triglycerides Cholesterol LDL Cholesterol, Calc HDL Cholesterol TSH Urine Color Urine Appearance Urine pH Ur Specific [place] Urine Protein Urine Glucose (UA) Urine Ketones Urine Blood Urine Nitrite Ur Leukocyte Esterase Urine RBC Urine WBC Ur Squamous Epith Cells Urine Bacteria Hyaline Casts Salicylates Urine Opiates Screen Ur Buprenorphine Scrn Ur Oxycodone Screen Urine Methadone Screen Urine Fentanyl Screen Acetaminophen Ur Barbiturates Screen Ur Phencyclidine Scrn Ur Amphetamines Screen U Benzodiazepines Scrn Urine Cocaine Screen U Marijuana (THC) Screen Ethyl Alcohol Airway Mallampati Class: III TM Dist: >3cm Neck ROM: Full Loose/Missing/Broken Teeth: No Heart: RRR Lungs: CTA Assessment and Plan Assessment Anesthesia Assessment: Anesthesia Plan Discussed and Chart Reviewed Final Anesthetic Review Family History of Problems with Anesthesia: No History of Problems with Anesthesia: No NPO: Yes ASA Class: III Final Preanesthetic Review: Meds/Allgs Chart Reviewed, Consent Obtained/Reviewed and Anes Risks/Benef Reviewed Patient Risk: Intermediate Procedure Risk: Intermediate Anesthetic Plan Anesthetic Plan: GA Disposition: Standard PACU
--- NOTE | 2025-01-03 09:25 | MHC.SHP ---
Pre-Procedural Eval Section A - 24 Hr Update-Section A only Date of Service: 01/03/25 The patient is an INPATIENT: Yes Changes since office visit: Yes Patient answered all questions; No Cold of Flu in the past 2 weeks, No New Medical Problems and No Changes in Medication The patient has been examined within 24 hours of the surgical procedure. The History & Physical has been completed within 30 days and I have reviewed it.: Yes Section B - Complete if H&P > 30 days Chief Complaint: depression Allergies: Allergies Allergy/AdvReac Type Severity Reaction Status Date / Time No Known Allergies Allergy Verified 12/19/24 13:11 Plan Diagnosis/Plan: Unchanged I have reviewed the history and physical and performed a pertinent physical examination on my patient. No changes have occurred unless specified. Time Spent With Patient Time: Total time managing care of this patient today ____ minutes.
--- NOTE | 2025-01-03 09:25 | HO.ECTPROC ---
ECT Procedure Note Diagnosis/Treatment Date of Service: 01/08/25 Diagnosis: Major Depressive Disorder Previous ECT Date: 01/06/25 Current Treatment Number: 5 Treatment: Series Interval Clinical Notes: PT SOMEWHAT BRIGHTER mood improved not confused feels ect helpful Time: Total time managing care of this patient today ____ minutes. ECT Settings Device: THYMATRON DGx Program/Pulse Width: 0.50 Energy Percent: 100 Seizure Duration By EEG (in seconds): 29 Medications Administration General Anesthetic: Etomidate (16) Muscle Relaxant: Succinylcholine (180) Ancillary Medications Miscillaneous Medications: Propofol (30) Airway Management Airway Management: Bag Mask Ventilation Treatment Recommendations No Changes Recommended: No change Pt Tolerated Procedure w/o Issue: Yes
[2025-01-03] MEDS: buPROPion HCl XL 150 MG TAB.ER.24H 450 MG PO (10:54)
--- NOTE | 2025-01-03 19:00 | HO.PSYCHPN ---
Subjective Subjective Date of Service: 01/03/25 Reason For Visit: depression Interim History: Met with patient; discussed with team pt says depression little better still now 08/29. ECT well tolerated. Discussed Wellbutrin and pt says side-effect of b/l arm tremor really bothers him; he'll tolerate it if it's actually treating his depression. Discussed how Wellbutrin 300mg did nothing for him and so given improvement, pt agrees to drop Wellbutrin back down to 300mg and continue to taper until DC and see if mood remains improved without it; otherwise, will restart Mental Status Exam Mental Status Exam Narrative: Pt is alert and oriented; behavior is cooperative, friendly and calm, more social and engaged; patient is not in distress; dressed in casual attire, unkempt and scruffy but adequate hygiene; mood is described as better and affect still somewhat blunted, but overall brighter and more calm; eye contact appropriate; Speech is sparse but normal rate, volume and prosody and not pressured; some retardation present; thought process is organized and goal directed; Thought content is on tx; otherwise pertinent to relevant topics and without any delusional content, paranoid ideations or grandiosity; denies any SI/HI. Denies AVH and there is no evidence of perceptual disturbance. Patients insight and judgment fair. Diagnostics Vital Signs (24Hr): Vital Signs - 24 hr 01/02/25 20:00 01/03/25 07:51 01/03/25 08:39 Temperature 97.6 F 96.8 F 97.6 F Pulse Rate 72 71 67 Respiratory Rate 16 18 16 Blood Pressure 129/75 122/75 144/84 H Pulse Oximetry 98 96 95 Oxygen Delivery Method Room Air Room Air Room Air Oxygen Flow Rate 01/03/25 09:50 01/03/25 09:55 01/03/25 10:00 Temperature 98.6 F Pulse Rate 78 77 76 Respiratory Rate 18 16 17 Blood Pressure 191/85 H 206/89 H 141/87 H Pulse Oximetry 97 97 96 Oxygen Delivery Method Nasal Cannula with ETCO2 Nasal Cannula with ETCO2 Nasal Cannula with ETCO2 Oxygen Flow Rate 2 2 2 01/03/25 10:05 01/03/25 10:20 01/03/25 10:49 Temperature 98.9 F 97.1 F Pulse Rate 76 76 70 Respiratory Rate 17 17 16 Blood Pressure 145/79 H 132/81 129/80 Pulse Oximetry 96 96 97 Oxygen Delivery Method Room Air Room Air Oxygen Flow Rate BMI result Body Mass Index 34.3 Labs 12/19/24 13:34 12/26/24 07:59 Medications Medications Current Medications Acetaminophen (Acetaminophen 325 Mg Tablet) 650 mg PO Q6H PRN PRN Reason: Headache/Pain, Scale 1-10 Al Hydroxide/Mg Hydroxide (Magnesium Hydrox/Alum Hydrox 30 Ml Oral.Susp) 30 ml PO Q6H PRN PRN Reason: Heartburn/Nausea Last Admin: 01/02/25 11:26 Dose: 30 ml Amlodipine Besylate (Amlodipine Besylate 10 Mg Tablet) 10 mg PO DAILY [facility]; Protocol Last Admin: 01/03/25 10:53 Dose: 10 mg Atorvastatin Calcium (Atorvastatin Calcium 80 Mg Tablet) 80 mg PO DAILY [facility] Last Admin: 01/03/25 10:53 Dose: 80 mg Bupropion HCl (Bupropion Hcl Xl 300 Mg Tab.Er.24h) 300 mg PO DAILY [facility] Ezetimibe (Ezetimibe 10 Mg Tablet) 10 mg PO DAILY [facility] Last Admin: 01/03/25 10:54 Dose: 10 mg Escitalopram Oxalate (Escitalopram Oxalate 20 Mg Tablet) 20 mg PO BEDTIME [facility] Last Admin: 01/02/25 21:02 Dose: 20 mg Fenofibrate (Fenofibrate 160 Mg Tablet) 160 mg PO DAILY [facility] Last Admin: 01/03/25 10:53 Dose: 160 mg Hydroxyzine HCl (Hydroxyzine Hcl 25 Mg Tablet) 25 mg PO Q6H PRN PRN Reason: mild anxiety Last Admin: 12/28/24 20:40 Dose: 25 mg Lurasidone HCl (Lurasidone Hcl 80 Mg Tablet) 80 mg PO DAILY@1700 [facility] Last Admin: 01/03/25 17:11 Dose: 80 mg Magnesium Hydroxide (Milk Of Magnesia 30 Ml Oral.Susp) 30 ml PO DAILY PRN PRN Reason: Constipation Naloxone HCl (Naloxone Hcl 0.4 Mg/Ml Vial) 0.04 mg IVPUSH Q5M PRN PRN Reason: Excessive sedation or RR < 8 Naltrexone HCl (Naltrexone Hcl 50 Mg Tablet) 50 mg PO DAILY [facility] Last Admin: 01/03/25 10:53 Dose: 50 mg Nicotine (Nicotine 21 Mg Patch.Td24) 21 mg TRANSDERMA DAILY PRN PRN Reason: smoking cessation Nicotine Polacrilex (Nicotine Polacrilex 2 Mg Gum) 4 mg BUCCAL Q2H PRN PRN Reason: Nicotine Cravings Omeprazole (Omeprazole 20 Mg Capsule.Dr) 20 mg PO BEDTIME [facility] Last Admin: 01/02/25 21:02 Dose: 20 mg Thiamine HCl (Thiamine Hcl 100 Mg Tablet) 100 mg PO DAILY [facility] Last Admin: 01/03/25 10:53 Dose: 100 mg Trazodone HCl (Trazodone Hcl 100 Mg Tablet) 100 mg PO BEDTIME [facility] Last Admin: 01/02/25 21:02 Dose: 100 mg Trazodone HCl (Trazodone Hcl 50 Mg Tablet) 50 mg PO BEDTIME MRX1 PRN PRN Reason: Insomnia Last Admin: 12/27/24 22:42 Dose: 50 mg Allergies Allergies Allergy/AdvReac Type Severity Reaction Status Date / Time No Known Allergies Allergy Verified 12/19/24 13:11 Assessment & Plan Assessment & Plan (1) Major depressive disorder, recurrent severe without psychotic features: Status: Acute Code(s): F33.2 - Major depressive disorder, recurrent severe without psychotic features (2) ANDREW (generalized anxiety disorder): Status: Acute Code(s): F41.1 - Generalized anxiety disorder (3) Alcohol use: Status: Acute Code(s): F10.90 - Alcohol use, unspecified, uncomplicated Plan HPI: 64 yo MWM with worsening depression - hx TRD and getting TMS here to start ECT for ongoing depressive sys not responding to treatment as usual - ongoing depression, hopeless/helpless feelings- no active si , last SA was 12 year ago when he [facility] while blacked out on alcohol. Also rates high anxiety- staying in bed 22 hrs/day- xs sleep, no energy- increased symptoms of depression such as sleeping 22 hours daily, not showering, not engaged; no SI Hx trying multiple antidepressants Reports decreased appetite, weight , energy , anehdonia severe , and feelings of guilt- Past Psychiatric History: denies prior psychiatric hospitalization last suicide attempt 12 years ago; . He has had 2 prior suicide attempts which he says I was blackout drunk . Hospital course: Patient reports depression/anxiety for years; Patient says lots of med trials, including TMS; Reports history therapy but not consistent restarted drinking 2 weeks ago after 2 years sober; says only 2 nips a day. Initially said he was not drinking at all but patient explains this because his was present and he did not want her to know he relapsed Discussed with patient ECT, risks/side effects and treatment plan; patient eager to embark. Also discussed medication management and he has been on Wellbutrin and Latuda current doses for 2 years and agrees to increase. Discussed behavioral activation and patient says he will engage 12/24 Review of chart shows that patient's BAL was >200 and given his size, not possible that he was only drinking 2 nips a day; senior underwriter presented this to patient who confirmed that he was drinking closer to 5 drinks a day. Denies any alcohol withdrawal and says that his hand shakes her due to Wellbutrin which he gets every day since he has been taking it. Discussed behavioral activation and patient agreed to shower and get dressed. -patient looks like he is in alcohol withdrawal even though he denies it. Will schedule Ativan 1 mg t.i.d. for now to mitigate what is likely withdrawal 12/25 says little better with med increase; still wants ect; says not in any withdrawal -will proceed with ECT 12/26: Patient reports severe anxiety and depression. He has been sleeping well. He has been taking his medications. He attended 1 group so far. He denies SI/HI/AH/VH. Continue current treatment regimen. ECT scheduled tomorrow. 12/27 Talked about addiction to alcohol; patient was sober for 2 years during which time he to today a however he was still quite depressed despite being on medications. Patient initially ambivalent about his need for AA support agreed that it will be difficult for him to remain sober unless really engages in AA and outpatient treatment. Discussed ECT and patient denies any side effects and wants to continue; discussed medications and he agrees to increasing Latuda -says Topamax was for alcohol cravings which he said was helpful; agrees to have it held during ECT 12/28: Continue current management and treatment plan ECT. 12/29: continue current management and treatment plan. NPO post MN. 12/30/24: Patient slept for 8 hours, was medication compliant, denies side effects from medication. Review the medication list with him as he not remember what he has been taking. Patient denies side effects from ECT this his 2nd session. Denies headache, memory issues. He observe attended groups after ECT. Reports anxiety and depression a 11/28 which he reported has been much better compared to the past week.flat affect, but pleasant, and cooperative. Denies safety concerns. Denies hallucinations. 12/31 Patient noticeably brighter, attending groups. He says he starting to feel better as well. No troubles with ECT and wants to continue. -continue with ECT -will leave medication as current regimen 01/01 pt reports still depressed and still worried, but overall feels depression slowly improving; he has more energy, does not feel as shut down and more optimistic. Discussed medications, ECT and pt wants to continue and reassess after a few more ECT treatments. Discussed Partial day program post discharge and he agrees good idea. 01/02 remains slowly improving; continue ECT; family meeting next week. agrees improving. Pt agrees with partial day program 01/03 pt says depression little better still now 08/29. ECT well tolerated. Discussed Wellbutrin and pt says side-effect of b/l arm tremor really bothers him; he'll tolerate it if it's actually treating his depression. Discussed how Wellbutrin 300mg did nothing for him and so given improvement, pt agrees to drop Wellbutrin back down to 300mg and continue to taper until DC and see if mood remains improved without it; otherwise, will restart Impression: pt starting to improve, but remains fragile and requires additional ECT treatments and continued improvement before can conclude treatment effect. Plan: CV Q 15 minute checks ECT Mon, Mon, and Monday LOWER wellbutrin XL to 300mg daily (not convinced that increase to 450mg is contributory; pt has been on 300 mg for 2 years with) Continue with Latuda 80mg daily (has been on 40 mg for 2 years) Continue Lexapro 20 mg daily Continue Naltrexone 50mg daily HOLD topomax 50mg while getting ECT Continue trazodone 100mg bedtime Past med trials: Not sure therapeutic duration and dose; Abilify Lamictal Nelagoney Paxil Effexor Risperidone Patient educated on: diagnosis, medication risk/benefits, ECT and therapeutic strategies Informed Consent: understands Reason for continued inpatient stay Substantial Risk for: rapid decompensation Time Spent With Patient Time: Total time managing care of this patient today ____ minutes.
[2025-01-04 08:00] VITALS: BP 115/62; PULSE 80; RESP 16; TEMP 36.1; O2SAT 97
[2025-01-04] MEDS: buPROPion HCl XL 300 MG TAB.ER.24H PO (08:53)
--- NOTE | 2025-01-04 09:40 | P.PNPSI_ITS ---
Subjective Subjective Date of Service: 01/04/25 Reason For Visit: depression Interim History: met with patient; discussed with team Patient reports mood continues to be better and he is very grateful for having started ECT. Discussed continued bilateral arm tremor which seems to have been due to Wellbutrin. Patient agrees to continue tapering off and discontinuing Wellbutrin to see if depression returns and to see if shaking stops. Mental Status Exam Mental Status Exam Narrative: Pt is alert and oriented; behavior is cooperative, friendly and calm, more social and engaged; patient is not in distress; dressed in casual attire, unkempt and scruffy but adequate hygiene; mood is described as better and affect still somewhat blunted, but overall brighter and more calm; eye contact appropriate; Speech is sparse but normal rate, volume and prosody and not pressured; some retardation present; thought process is organized and goal directed; Thought content is on tx; otherwise pertinent to relevant topics and without any delusional content, paranoid ideations or grandiosity; denies any SI/HI. Denies AVH and there is no evidence of perceptual disturbance. Patients insight and judgment fair. Diagnostics Vital Signs (24Hr): Vital Signs - 24 hr 01/03/25 09:50 01/03/25 09:55 01/03/25 10:00 Temperature 98.6 F Pulse Rate 78 77 76 Respiratory Rate 18 16 17 Blood Pressure 191/85 H 206/89 H 141/87 H Pulse Oximetry 97 97 96 Oxygen Delivery Method Nasal Cannula with ETCO2 Nasal Cannula with ETCO2 Nasal Cannula with ETCO2 Oxygen Flow Rate 2 2 2 01/03/25 10:05 01/03/25 10:20 01/03/25 10:49 Temperature 98.9 F 97.1 F Pulse Rate 76 76 70 Respiratory Rate 17 17 16 Blood Pressure 145/79 H 132/81 129/80 Pulse Oximetry 96 96 97 Oxygen Delivery Method Room Air Room Air Oxygen Flow Rate 01/03/25 20:00 01/04/25 08:00 Temperature 97.1 F 97 F Pulse Rate 73 80 Respiratory Rate 16 Blood Pressure 121/71 115/62 Pulse Oximetry 95 97 Oxygen Delivery Method Room Air Oxygen Flow Rate BMI result Body Mass Index 34.3 Labs 12/19/24 13:34 12/26/24 07:59 Medications Medications Current Medications Acetaminophen (Acetaminophen 325 Mg Tablet) 650 mg PO Q6H PRN PRN Reason: Headache/Pain, Scale 1-10 Al Hydroxide/Mg Hydroxide (Magnesium Hydrox/Alum Hydrox 30 Ml Oral.Susp) 30 ml PO Q6H PRN PRN Reason: Heartburn/Nausea Last Admin: 01/02/25 11:26 Dose: 30 ml Amlodipine Besylate (Amlodipine Besylate 10 Mg Tablet) 10 mg PO DAILY [facility]; Protocol Last Admin: 01/04/25 08:54 Dose: 10 mg Atorvastatin Calcium (Atorvastatin Calcium 80 Mg Tablet) 80 mg PO DAILY [facility] Last Admin: 01/04/25 08:54 Dose: 80 mg Bupropion HCl (Bupropion Hcl Xl 300 Mg Tab.Er.24h) 300 mg PO DAILY [facility] Last Admin: 01/04/25 08:53 Dose: 300 mg Ezetimibe (Ezetimibe 10 Mg Tablet) 10 mg PO DAILY [facility] Last Admin: 01/04/25 08:53 Dose: 10 mg Escitalopram Oxalate (Escitalopram Oxalate 20 Mg Tablet) 20 mg PO BEDTIME [facility] Last Admin: 01/03/25 20:23 Dose: 20 mg Fenofibrate (Fenofibrate 160 Mg Tablet) 160 mg PO DAILY [facility] Last Admin: 01/04/25 08:54 Dose: 160 mg Hydroxyzine HCl (Hydroxyzine Hcl 25 Mg Tablet) 25 mg PO Q6H PRN PRN Reason: mild anxiety Last Admin: 12/28/24 20:40 Dose: 25 mg Lurasidone HCl (Lurasidone Hcl 80 Mg Tablet) 80 mg PO DAILY@1700 [facility] Last Admin: 01/03/25 17:11 Dose: 80 mg Magnesium Hydroxide (Milk Of Magnesia 30 Ml Oral.Susp) 30 ml PO DAILY PRN PRN Reason: Constipation Naloxone HCl (Naloxone Hcl 0.4 Mg/Ml Vial) 0.04 mg IVPUSH Q5M PRN PRN Reason: Excessive sedation or RR < 8 Naltrexone HCl (Naltrexone Hcl 50 Mg Tablet) 50 mg PO DAILY [facility] Last Admin: 01/04/25 08:53 Dose: 50 mg Nicotine (Nicotine 21 Mg Patch.Td24) 21 mg TRANSDERMA DAILY PRN PRN Reason: smoking cessation Nicotine Polacrilex (Nicotine Polacrilex 2 Mg Gum) 4 mg BUCCAL Q2H PRN PRN Reason: Nicotine Cravings Omeprazole (Omeprazole 20 Mg Capsule.Dr) 20 mg PO BEDTIME [facility] Last Admin: 01/03/25 20:23 Dose: 20 mg Thiamine HCl (Thiamine Hcl 100 Mg Tablet) 100 mg PO DAILY [facility] Last Admin: 01/04/25 08:54 Dose: 100 mg Trazodone HCl (Trazodone Hcl 100 Mg Tablet) 100 mg PO BEDTIME [facility] Last Admin: 01/03/25 20:23 Dose: 100 mg Trazodone HCl (Trazodone Hcl 50 Mg Tablet) 50 mg PO BEDTIME MRX1 PRN PRN Reason: Insomnia Last Admin: 12/27/24 22:42 Dose: 50 mg Allergies Allergies Allergy/AdvReac Type Severity Reaction Status Date / Time No Known Allergies Allergy Verified 12/19/24 13:11 Assessment & Plan Assessment & Plan (1) Major depressive disorder, recurrent severe without psychotic features: Status: Acute Code(s): F33.2 - Major depressive disorder, recurrent severe without psychotic features (2) ANDREW (generalized anxiety disorder): Status: Acute Code(s): F41.1 - Generalized anxiety disorder (3) Alcohol use: Status: Acute Code(s): F10.90 - Alcohol use, unspecified, uncomplicated Plan HPI: 64 yo MWM with worsening depression - hx TRD and getting TMS here to start ECT for ongoing depressive sys not responding to treatment as usual - ongoing depression, hopeless/helpless feelings- no active si , last SA was 12 year ago when he [employer] while blacked out on alcohol. Also rates high anxiety- staying in bed 22 hrs/day- xs sleep, no energy- increased symptoms of depression such as sleeping 22 hours daily, not showering, not engaged; no SI Hx trying multiple antidepressants Reports decreased appetite, weight , energy , anehdonia severe , and feelings of guilt- Past Psychiatric History: denies prior psychiatric hospitalization last suicide attempt 12 years ago; . He has had 2 prior suicide attempts which he says I was blackout drunk . Hospital course: Patient reports depression/anxiety for years; Patient says lots of med trials, including TMS; Reports history therapy but not consistent restarted drinking 2 weeks ago after 2 years sober; says only 2 nips a day. Initially said he was not drinking at all but patient explains this because his was present and he did not want her to know he relapsed Discussed with patient ECT, risks/side effects and treatment plan; patient eager to embark. Also discussed medication management and he has been on Wellbutrin and Latuda current doses for 2 years and agrees to increase. Discussed behavioral activation and patient says he will engage 12/24 Review of chart shows that patient's BAL was >200 and given his size, not possible that he was only drinking 2 nips a day; real estate underwriter presented this to patient who confirmed that he was drinking closer to 5 drinks a day. Denies any alcohol withdrawal and says that his hand shakes her due to Wellbutrin which he gets every day since he has been taking it. Discussed behavioral activation and patient agreed to shower and get dressed. -patient looks like he is in alcohol withdrawal even though he denies it. Will schedule Ativan 1 mg t.i.d. for now to mitigate what is likely withdrawal 12/25 says little better with med increase; still wants ect; says not in any withdrawal -will proceed with ECT 12/26: Patient reports severe anxiety and depression. He has been sleeping well. He has been taking his medications. He attended 1 group so far. He denies SI/HI/AH/VH. Continue current treatment regimen. ECT scheduled tomorrow. 12/27 Talked about addiction to alcohol; patient was sober for 2 years during which time he to today a however he was still quite depressed despite being on medications. Patient initially ambivalent about his need for AA support agreed that it will be difficult for him to remain sober unless really engages in AA and outpatient treatment. Discussed ECT and patient denies any side effects and wants to continue; discussed medications and he agrees to increasing Latuda -says Topamax was for alcohol cravings which he said was helpful; agrees to have it held during ECT 12/28: Continue current management and treatment plan ECT. 12/29: continue current management and treatment plan. NPO post MN. 12/30/24: Patient slept for 8 hours, was medication compliant, denies side effects from medication. Review the medication list with him as he not remember what he has been taking. Patient denies side effects from ECT this his 2nd session. Denies headache, memory issues. He observe attended groups after ECT. Reports anxiety and depression a 11/28 which he reported has been much better compared to the past week.flat affect, but pleasant, and cooperative. Denies safety concerns. Denies hallucinations. 12/31 Patient noticeably brighter, attending groups. He says he starting to feel better as well. No troubles with ECT and wants to continue. -continue with ECT -will leave medication as current regimen 01/01 pt reports still depressed and still worried, but overall feels depression slowly improving; he has more energy, does not feel as shut down and more optimistic. Discussed medications, ECT and pt wants to continue and reassess after a few more ECT treatments. Discussed Partial day program post discharge and he agrees good idea. 01/02 remains slowly improving; continue ECT; family meeting next week. agrees improving. Pt agrees with partial day program 01/03 pt says depression little better still now 08/29. ECT well tolerated. Discussed Wellbutrin and pt says side-effect of b/l arm tremor really bothers him; he'll tolerate it if it's actually treating his depression. Discussed how Wellbutrin 300mg did nothing for him and so given improvement, pt agrees to drop Wellbutrin back down to 300mg and continue to taper until DC and see if mood remains improved without it; otherwise, will restart 01/04 Patient reports mood continues to be better and he is very grateful for having started ECT. Discussed continued bilateral arm tremor which seems to have been due to Wellbutrin. Patient agrees to continue tapering off and discontinuing Wellbutrin to see if depression returns and to see if shaking stops. Impression: pt starting to improve, but remains fragile and requires additional ECT treatments and continued improvement before can conclude treatment effect. Also, discontinuing Wellbutrin due to bothersome side effect and concern for lack of efficacy. If depression returns will conclude that increased Wellbutrin has been part of improvement in mood. Plan: CV Q 15 minute checks ECT Mon, Mon, and Monday Taper and DC wellbutrin XL (not convinced that increase to 450mg is contributory; pt has been on 300 mg for 2 years with no benefit) Continue with Latuda 80mg daily (has been on 40 mg for 2 years) Continue Lexapro 20 mg daily Continue Naltrexone 50mg daily HOLD topomax 50mg while getting ECT Continue trazodone 100mg bedtime Past med trials: Not sure therapeutic duration and dose; Abilify Lamictal Disautel Paxil Effexor Risperidone Patient educated on: diagnosis, medication risk/benefits and ECT Informed Consent: understands Reason for continued inpatient stay Substantial Risk for: rapid decompensation Time Spent With Patient Time: Total time managing care of this patient today ____ minutes.
--- NOTE | 2025-01-04 16:19 | HO.POSTANES ---
Post Anesthesia Evaluation Post Anesthesia Evaluation Date of Service: 01/04/25 Vital Signs: Vital Signs Temp Pulse Resp BP Pulse Ox 01/04/25 08:00 97 F 80 16 115/62 97
[2025-01-04 20:00] VITALS: BP 131/73; PULSE 65; TEMP 36.4; O2SAT 97
[2025-01-05 08:00] VITALS: BP 133/75; PULSE 68; TEMP 36.6; O2SAT 97
[2025-01-05] MEDS: buPROPion HCl XL 150 MG TAB.ER.24H PO (08:49)
--- NOTE | 2025-01-05 09:56 | P.PNPSI_ITS ---
Subjective Subjective Date of Service: 01/05/25 Reason For Visit: depression Interim History: Met with patient; discussed with team feeling better; discussed ECT and will continue; discussed Wellbutrin and he thinks tremor is less w/ reduced wellbutin dose and agrees to dc and see how it goes. Mental Status Exam Mental Status Exam Narrative: Pt is alert and oriented; behavior is cooperative, friendly and calm, more social and engaged; patient is not in distress; dressed in casual attire, unkempt and scruffy but adequate hygiene; mood is described as good and affect brighter, more calm; eye contact appropriate; Speech is sparse but normal rate, volume and prosody and not pressured; much less retardation present; thought process is organized and goal directed; Thought content is on tx; otherwise pertinent to relevant topics and without any delusional content, paranoid ideations or grandiosity; denies any SI/HI. Denies AVH and there is no evidence of perceptual disturbance. Patients insight and judgment fair. Diagnostics Vital Signs (24Hr): Vital Signs - 24 hr 01/04/25 20:00 01/05/25 08:00 Temperature 97.6 F 97.8 F Pulse Rate 65 68 Blood Pressure 131/73 133/75 Pulse Oximetry 97 97 Oxygen Delivery Method Room Air BMI result Body Mass Index 34.3 Labs 12/19/24 13:34 12/26/24 07:59 Medications Medications Current Medications Acetaminophen (Acetaminophen 325 Mg Tablet) 650 mg PO Q6H PRN PRN Reason: Headache/Pain, Scale 1-10 Al Hydroxide/Mg Hydroxide (Magnesium Hydrox/Alum Hydrox 30 Ml Oral.Susp) 30 ml PO Q6H PRN PRN Reason: Heartburn/Nausea Last Admin: 01/02/25 11:26 Dose: 30 ml Amlodipine Besylate (Amlodipine Besylate 10 Mg Tablet) 10 mg PO DAILY [facility]; Protocol Last Admin: 01/05/25 08:49 Dose: 10 mg Atorvastatin Calcium (Atorvastatin Calcium 80 Mg Tablet) 80 mg PO DAILY [facility] Last Admin: 01/05/25 08:49 Dose: 80 mg Ezetimibe (Ezetimibe 10 Mg Tablet) 10 mg PO DAILY [facility] Last Admin: 01/05/25 08:49 Dose: 10 mg Escitalopram Oxalate (Escitalopram Oxalate 20 Mg Tablet) 20 mg PO BEDTIME [facility] Last Admin: 01/04/25 21:28 Dose: 20 mg Fenofibrate (Fenofibrate 160 Mg Tablet) 160 mg PO DAILY [facility] Last Admin: 01/05/25 08:49 Dose: 160 mg Hydroxyzine HCl (Hydroxyzine Hcl 25 Mg Tablet) 25 mg PO Q6H PRN PRN Reason: mild anxiety Last Admin: 12/28/24 20:40 Dose: 25 mg Lurasidone HCl (Lurasidone Hcl 80 Mg Tablet) 80 mg PO DAILY@1700 [facility] Last Admin: 01/04/25 17:39 Dose: 80 mg Magnesium Hydroxide (Milk Of Magnesia 30 Ml Oral.Susp) 30 ml PO DAILY PRN PRN Reason: Constipation Naloxone HCl (Naloxone Hcl 0.4 Mg/Ml Vial) 0.04 mg IVPUSH Q5M PRN PRN Reason: Excessive sedation or RR < 8 Naltrexone HCl (Naltrexone Hcl 50 Mg Tablet) 50 mg PO DAILY [facility] Last Admin: 01/05/25 08:49 Dose: 50 mg Nicotine (Nicotine 21 Mg Patch.Td24) 21 mg TRANSDERMA DAILY PRN PRN Reason: smoking cessation Nicotine Polacrilex (Nicotine Polacrilex 2 Mg Gum) 4 mg BUCCAL Q2H PRN PRN Reason: Nicotine Cravings Omeprazole (Omeprazole 20 Mg Capsule.Dr) 20 mg PO BEDTIME [facility] Last Admin: 01/04/25 21:29 Dose: 20 mg Thiamine HCl (Thiamine Hcl 100 Mg Tablet) 100 mg PO DAILY [facility] Last Admin: 01/05/25 08:49 Dose: 100 mg Trazodone HCl (Trazodone Hcl 100 Mg Tablet) 100 mg PO BEDTIME [facility] Last Admin: 01/04/25 21:29 Dose: 100 mg Trazodone HCl (Trazodone Hcl 50 Mg Tablet) 50 mg PO BEDTIME MRX1 PRN PRN Reason: Insomnia Last Admin: 12/27/24 22:42 Dose: 50 mg Allergies Allergies Allergy/AdvReac Type Severity Reaction Status Date / Time No Known Allergies Allergy Verified 12/19/24 13:11 Assessment & Plan Assessment & Plan (1) Major depressive disorder, recurrent severe without psychotic features: Status: Acute Code(s): F33.2 - Major depressive disorder, recurrent severe without psychotic features (2) ANDREW (generalized anxiety disorder): Status: Acute Code(s): F41.1 - Generalized anxiety disorder (3) Alcohol use: Status: Acute Code(s): F10.90 - Alcohol use, unspecified, uncomplicated Plan HPI: 64 yo MWM with worsening depression - hx TRD and getting TMS here to start ECT for ongoing depressive sys not responding to treatment as usual - ongoing depression, hopeless/helpless feelings- no active si , last SA was 12 year ago when he [facility] while blacked out on alcohol. Also rates high anxiety- staying in bed 22 hrs/day- xs sleep, no energy- increased symptoms of depression such as sleeping 22 hours daily, not showering, not engaged; no SI Hx trying multiple antidepressants Reports decreased appetite, weight , energy , [place] severe , and feelings of guilt- Past Psychiatric History: denies prior psychiatric hospitalization last suicide attempt 12 years ago; . He has had 2 prior suicide attempts which he says I was blackout drunk . Hospital course: Patient reports depression/anxiety for years; Patient says lots of med trials, including TMS; Reports history therapy but not consistent restarted drinking 2 weeks ago after 2 years sober; says only 2 nips a day. Initially said he was not drinking at all but patient explains this because his was present and he did not want her to know he relapsed Discussed with patient ECT, risks/side effects and treatment plan; patient eager to embark. Also discussed medication management and he has been on Wellbutrin and Latuda current doses for 2 years and agrees to increase. Discussed behavioral activation and patient says he will engage 12/24 Review of chart shows that patient's BAL was >200 and given his size, not possible that he was only drinking 2 nips a day; casualty underwriter presented this to patient who confirmed that he was drinking closer to 5 drinks a day. Denies any alcohol withdrawal and says that his hand shakes her due to Wellbutrin which he gets every day since he has been taking it. Discussed behavioral activation and patient agreed to shower and get dressed. -patient looks like he is in alcohol withdrawal even though he denies it. Will schedule Ativan 1 mg t.i.d. for now to mitigate what is likely withdrawal 12/25 says little better with med increase; still wants ect; says not in any withdrawal -will proceed with ECT 12/26: Patient reports severe anxiety and depression. He has been sleeping well. He has been taking his medications. He attended 1 group so far. He denies SI/HI/AH/VH. Continue current treatment regimen. ECT scheduled tomorrow. 12/27 Talked about addiction to alcohol; patient was sober for 2 years during which time he to today a however he was still quite depressed despite being on medications. Patient initially ambivalent about his need for AA support agreed that it will be difficult for him to remain sober unless really engages in AA and outpatient treatment. Discussed ECT and patient denies any side effects and wants to continue; discussed medications and he agrees to increasing Latuda -says Topamax was for alcohol cravings which he said was helpful; agrees to have it held during ECT 12/28: Continue current management and treatment plan ECT. 12/29: continue current management and treatment plan. NPO post MN. 12/30/24: Patient slept for 8 hours, was medication compliant, denies side effects from medication. Review the medication list with him as he not remember what he has been taking. Patient denies side effects from ECT this his 2nd session. Denies headache, memory issues. He observe attended groups after ECT. Reports anxiety and depression a 11/28 which he reported has been much better compared to the past week.flat affect, but pleasant, and cooperative. Denies safety concerns. Denies hallucinations. 12/31 Patient noticeably brighter, attending groups. He says he starting to feel better as well. No troubles with ECT and wants to continue. -continue with ECT -will leave medication as current regimen 01/01 pt reports still depressed and still worried, but overall feels depression slowly improving; he has more energy, does not feel as shut down and more optimistic. Discussed medications, ECT and pt wants to continue and reassess after a few more ECT treatments. Discussed Partial day program post discharge and he agrees good idea. 01/02 remains slowly improving; continue ECT; family meeting next week. agrees improving. Pt agrees with partial day program 01/03 pt says depression little better still now 08/29. ECT well tolerated. Discussed Wellbutrin and pt says side-effect of b/l arm tremor really bothers him; he'll tolerate it if it's actually treating his depression. Discussed how Wellbutrin 300mg did nothing for him and so given improvement, pt agrees to drop Wellbutrin back down to 300mg and continue to taper until DC and see if mood remains improved without it; otherwise, will restart 01/04 Patient reports mood continues to be better and he is very grateful for having started ECT. Discussed continued bilateral arm tremor which seems to have been due to Wellbutrin. Patient agrees to continue tapering off and discontinuing Wellbutrin to see if depression returns and to see if shaking stops. 01/05 feeling better; discussed ECT and will continue; discussed Wellbutrin and he thinks tremor is less w/ reduced wellbutin dose and agrees to dc and see how it goes. Impression: pt starting to improve, but remains fragile and requires additional ECT treatments and continued improvement before can conclude treatment effect. Also, discontinuing Wellbutrin due to bothersome side effect and concern for lack of efficacy. If depression returns will conclude that increased Wellbutrin has been part of improvement in mood. Plan: CV Q 15 minute checks ECT Mon, Mon, and Monday Taper and DC wellbutrin XL (not convinced that increase to 450mg is contributory; pt has been on 300 mg for 2 years with no benefit) Continue with Latuda 80mg daily (has been on 40 mg for 2 years) Continue Lexapro 20 mg daily Continue Naltrexone 50mg daily HOLD topomax 50mg while getting ECT Continue trazodone 100mg bedtime Past med trials: Not sure therapeutic duration and dose; Abilify Lamictal [place] Paxil Effexor Risperidone Patient educated on: diagnosis, medication risk/benefits and ECT Informed Consent: understands Reason for continued inpatient stay Substantial Risk for: stable for discharge Time Spent With Patient Time: Total time managing care of this patient today ____ minutes.
[2025-01-05 20:00] VITALS: BP 113/64; PULSE 73; RESP 16; TEMP 37.1; O2SAT 96
[2025-01-06] VITALS (9 sets, daily range): BP systolic 119–152; BP diastolic 64–93; PULSE 70–88; RESP 14–18; TEMP 36.6–37; O2SAT 96–98
--- NOTE | 2025-01-06 06:56 | HO.ANESPROP2 ---
[facility] Active Problems Active Problems: All Active Problems Hypertriglyceridemia (Acute) Depression (Acute) Elevated LFTs (Acute) Alcohol use (Acute) Fatigue (Acute) ANDREW (generalized anxiety disorder) (Acute) Major depressive disorder, recurrent severe without psychotic features (Acute) Past Medical History Medical History Fatigue Family History Family history of problems with anesthesia: No Surgical History History of Problems with Anesthesia: No Social History Social History Household Members: Spouse Housing: House Do you presently have visiting nurse or other home services: No Alcohol intake: former Patient Tobacco Use Status: Never used Tobacco Smoked in Last 30 Days: No Use of substances other than those prescribed or required for medical reasons: No Currently Displaying Signs/Symptoms of Drug Intoxication Withdrawal: No Have you been hit, kicked, punched, or otherwise hurt by someone within the past year? If so, by whom?: No Do you feel safe in your current relationship?: No Is there a partner from a previous relationship who is making you feel unsafe now?: No Are you made to feel afraid or neglected: No Spiritual Healthcare Practices: none Jewish Healthcare Practices: none Cultural Healthcare Practices: none Advance Directives: No Advance Directives Information Provided: Yes Do you have thoughts of harming others: None Do you have a plan to hurt others: No Plan Recently lost weight without trying: No How much weight loss: Not applicable Eating poorly because of decreased appetite: No Nutrition screen score: 0 Nutrition Risks: No Nutritional Risk Poor oral hygiene: No service: No Sexual orientation: Straight/Heterosexual Meds Allergies Allergy/AdvReac Type Severity Reaction Status Date / Time No Known Allergies Allergy Verified 12/19/24 13:11 Active Medications: Current Medications Acetaminophen (Acetaminophen 325 Mg Tablet) 650 mg PO Q6H PRN PRN Reason: Headache/Pain, Scale 1-10 Al Hydroxide/Mg Hydroxide (Magnesium Hydrox/Alum Hydrox 30 Ml Oral.Susp) 30 ml PO Q6H PRN PRN Reason: Heartburn/Nausea Last Admin: 01/02/25 11:26 Dose: 30 ml Amlodipine Besylate (Amlodipine Besylate 10 Mg Tablet) 10 mg PO DAILY [facility]; Protocol Last Admin: 01/05/25 08:49 Dose: 10 mg Atorvastatin Calcium (Atorvastatin Calcium 80 Mg Tablet) 80 mg PO DAILY [facility] Last Admin: 01/05/25 08:49 Dose: 80 mg Ezetimibe (Ezetimibe 10 Mg Tablet) 10 mg PO DAILY [facility] Last Admin: 01/05/25 08:49 Dose: 10 mg Escitalopram Oxalate (Escitalopram Oxalate 20 Mg Tablet) 20 mg PO BEDTIME [facility] Last Admin: 01/05/25 20:51 Dose: 20 mg Fenofibrate (Fenofibrate 160 Mg Tablet) 160 mg PO DAILY [facility] Last Admin: 01/05/25 08:49 Dose: 160 mg Hydroxyzine HCl (Hydroxyzine Hcl 25 Mg Tablet) 25 mg PO Q6H PRN PRN Reason: mild anxiety Last Admin: 12/28/24 20:40 Dose: 25 mg Lactated Ringer's (Lr) 1,000 mls @ 50 mls/hr IVCONT .Q20H [facility] Lurasidone HCl (Lurasidone Hcl 80 Mg Tablet) 80 mg PO DAILY@1700 [facility] Last Admin: 01/05/25 17:29 Dose: 80 mg Magnesium Hydroxide (Milk Of Magnesia 30 Ml Oral.Susp) 30 ml PO DAILY PRN PRN Reason: Constipation Naloxone HCl (Naloxone Hcl 0.4 Mg/Ml Vial) 0.04 mg IVPUSH Q5M PRN PRN Reason: Excessive sedation or RR < 8 Naloxone HCl (Naloxone Hcl 0.4 Mg/Ml Vial) 0.04 mg IVPUSH Q5M PRN PRN Reason: Excessive sedation or RR < 8 Naltrexone HCl (Naltrexone Hcl 50 Mg Tablet) 50 mg PO DAILY [facility] Last Admin: 01/05/25 08:49 Dose: 50 mg Nicotine (Nicotine 21 Mg Patch.Td24) 21 mg TRANSDERMA DAILY PRN PRN Reason: smoking cessation Nicotine Polacrilex (Nicotine Polacrilex 2 Mg Gum) 4 mg BUCCAL Q2H PRN PRN Reason: Nicotine Cravings Omeprazole (Omeprazole 20 Mg Capsule.Dr) 20 mg PO BEDTIME [facility] Last Admin: 01/05/25 20:51 Dose: 20 mg Thiamine HCl (Thiamine Hcl 100 Mg Tablet) 100 mg PO DAILY [facility] Last Admin: 01/05/25 08:49 Dose: 100 mg Trazodone HCl (Trazodone Hcl 100 Mg Tablet) 100 mg PO BEDTIME [facility] Last Admin: 01/05/25 21:01 Dose: 100 mg Trazodone HCl (Trazodone Hcl 50 Mg Tablet) 50 mg PO BEDTIME MRX1 PRN PRN Reason: Insomnia Last Admin: 12/27/24 22:42 Dose: 50 mg Home Medications ?Medication ?Instructions ?Recorded ?Confirmed ?Last Taken ?Type amlodipine 10 mg tablet 10 mg PO DAILY 12/19/24 12/19/24 Unknown History bupropion HCl 300 mg 24 hr tablet, 300 mg PO QAM 12/19/24 12/19/24 Unknown History extended release escitalopram oxalate 20 mg tablet 20 mg PO BEDTIME 12/19/24 12/19/24 Unknown History ezetimibe 10 mg tablet 10 mg PO DAILY 12/19/24 12/19/24 Unknown History fenofibrate 160 mg tablet 160 mg PO DAILY 12/19/24 12/19/24 Unknown History lurasidone 40 mg tablet 40 mg PO QPM 12/19/24 12/19/24 Unknown History metformin 500 mg tablet,extended 500 mg PO DAILY 12/19/24 12/19/24 Unknown History release 24 hr naltrexone 50 mg tablet 50 mg PO DAILY 12/19/24 12/19/24 Unknown History omega-3 acid ethyl esters 1 gram 2 cap PO BID 12/19/24 12/19/24 Unknown History capsule rosuvastatin 20 mg tablet 20 mg PO DAILY 12/19/24 12/19/24 Unknown History topiramate 50 mg tablet 50 mg PO BEDTIME 12/19/24 12/19/24 Unknown History trazodone 100 mg tablet 100 mg PO BEDTIME 12/19/24 12/19/24 Unknown History Exam Height,Weight and Vital Signs: Height 5 ft 8 in Weight 102.3 kg Last Vital Signs Temp 97.8 F 01/06/25 06:28 Pulse 88 01/06/25 06:28 Resp 18 01/06/25 06:28 BP 141/69 H 01/06/25 06:28 Pulse Ox 97 01/06/25 06:28 O2 Del Method Room Air 01/05/25 20:00 O2 Flow Rate 2 01/03/25 10:00 Pertinent Lab Results Pertinent Lab Results: Laboratory Tests 12/19/24 12/19/24 12/21/24 13:34 16:58 07:31 WBC 7.4 RBC 5.07 Hgb 16.1 Hct 44.1 MCV 87.0 MCH 31.8 MCHC 36.5 H RDW 13.3 Plt Count 212 MPV 8.9 L Immature Gran % (Auto) 0.9 H Neut % (Auto) 52.0 Lymph % (Auto) 36.7 [place] % (Auto) 8.3 Eos % (Auto) 1.4 Baso % (Auto) 0.7 Lymph # (Auto) 2.7 [place] # (Auto) 0.6 Eos # (Auto) 0.1 Baso # (Auto) 0.1 Abs Immat Gran (auto) 0.07 H Absolute Neuts (auto) 3.8 Absolute Nucleated RBC 0.000 Nucleated RBC % (auto) 0.0 Sodium 141 141 Potassium 3.5 3.9 Chloride 106 107 Carbon Dioxide 22 24 Anion Gap 17 14 BUN 11 10 Creatinine 0.92 0.98 Estim Creat Clear Calc 95.3 89.4 Estimated GFR > 60 > 60 Random Glucose 90 107 Estimat Average Glucose 88 Hemoglobin A1c % 4.7 Calcium 8.6 9.1 Magnesium 1.8 Total Bilirubin 0.9 1.2 H AST 206 H 122 H ALT 182 H 115 H Alkaline Phosphatase 109 95 Total Protein 7.0 6.5 Albumin 4.4 4.2 Triglycerides 217 H Cholesterol 141 LDL Cholesterol, Calc 53 HDL Cholesterol 45 TSH 1.59 2.23 Urine Color Dark Yellow Urine Appearance Clear Urine pH 6.5 Ur Specific [place] 1.020 Urine Protein Trace Urine Glucose (UA) Negative Urine Ketones Trace Urine Blood Negative Urine Nitrite Negative Ur Leukocyte Esterase Small (1+) H Urine RBC 0-2 Urine WBC 6-10 H Ur Squamous Epith Cells 3-5 Urine Bacteria None Seen Hyaline Casts 3-5 Salicylates < 5.0 L Urine Opiates Screen Not Detected Ur Buprenorphine Scrn Not Detected Ur Oxycodone Screen Not Detected Urine Methadone Screen Not Detected Urine Fentanyl Screen Not Detected Acetaminophen < 3 Ur Barbiturates Screen Not Detected Ur Phencyclidine Scrn Not Detected Ur Amphetamines Screen Not Detected U Benzodiazepines Scrn Not Detected Urine Cocaine Screen Not Detected U Marijuana (THC) Screen Not Detected Ethyl Alcohol 127 12/26/24 07:59 WBC RBC Hgb Hct MCV MCH MCHC RDW Plt Count MPV Immature Gran % (Auto) Neut % (Auto) Lymph % (Auto) [place] % (Auto) Eos % (Auto) Baso % (Auto) Lymph # (Auto) [place] # (Auto) Eos # (Auto) Baso # (Auto) Abs Immat Gran (auto) Absolute Neuts (auto) Absolute Nucleated RBC Nucleated RBC % (auto) Sodium Potassium Chloride Carbon Dioxide Anion Gap BUN Creatinine 1.06 Estim Creat Clear Calc 82.6 Estimated GFR > 60 Random Glucose Estimat Average Glucose Hemoglobin A1c % Calcium Magnesium Total Bilirubin AST ALT Alkaline Phosphatase Total Protein Albumin Triglycerides Cholesterol LDL Cholesterol, Calc HDL Cholesterol TSH Urine Color Urine Appearance Urine pH Ur Specific [place] Urine Protein Urine Glucose (UA) Urine Ketones Urine Blood Urine Nitrite Ur Leukocyte Esterase Urine RBC Urine WBC Ur Squamous Epith Cells Urine Bacteria Hyaline Casts Salicylates Urine Opiates Screen Ur Buprenorphine Scrn Ur Oxycodone Screen Urine Methadone Screen Urine Fentanyl Screen Acetaminophen Ur Barbiturates Screen Ur Phencyclidine Scrn Ur Amphetamines Screen U Benzodiazepines Scrn Urine Cocaine Screen U Marijuana (THC) Screen Ethyl Alcohol Airway Mallampati Class: III TM Dist: >3cm Neck ROM: Full Heart: rrr Lungs: cta Assessment and Plan Assessment Anesthesia Assessment: Anesthesia Plan Discussed and Chart Reviewed Final Anesthetic Review Family History of Problems with Anesthesia: No History of Problems with Anesthesia: No NPO: Yes ASA Class: III Final Preanesthetic Review: No Changes in Pt Med Stat, Meds/Allgs Chart Reviewed and Consent Obtained/Reviewed Patient Risk: Intermediate Procedure Risk: Intermediate Anesthetic Plan Anesthetic Plan: GA Disposition: Standard PACU
--- NOTE | 2025-01-06 07:01 | MHC.SHP ---
Pre-Procedural Eval Section A - 24 Hr Update-Section A only Date of Service: 01/06/25 The patient is an INPATIENT: Yes Changes since office visit: Yes Patient answered all questions; No Cold of Flu in the past 2 weeks, No New Medical Problems and No Changes in Medication The patient has been examined within 24 hours of the surgical procedure. The History & Physical has been completed within 30 days and I have reviewed it.: Yes Section B - Complete if H&P > 30 days Chief Complaint: depression Allergies: Allergies Allergy/AdvReac Type Severity Reaction Status Date / Time No Known Allergies Allergy Verified 12/19/24 13:11 Plan Diagnosis/Plan: Unchanged I have reviewed the history and physical and performed a pertinent physical examination on my patient. No changes have occurred unless specified. Time Spent With Patient Time: Total time managing care of this patient today _35___ minutes.
[2025-01-06 07:06] LABS: Glucose, Whole Blood 104 mg/dL (60-115)
--- NOTE | 2025-01-06 08:33 | HO.ECTPROC ---
ECT Procedure Note Diagnosis/Treatment Date of Service: 01/06/25 Diagnosis: Major Depressive Disorder Previous ECT Date: 01/03/25 Current Treatment Number: 4 Interval Clinical Notes: feeling improved since start of ECT. no changes over weekend. Time: Total time managing care of this patient today __35__ minutes. ECT Settings Device: THYMATRON DGx Electrode Placement: Right Unilateral Program/Pulse Width: 0.50 Energy Percent: 100 Seizure Duration By EEG (in seconds): 37 Medications Administration General Anesthetic: Etomidate (16) Muscle Relaxant: Succinylcholine (160) Ancillary Medications Miscillaneous Medications: Midazolam (2) Airway Management Airway Management: LMA Treatment Recommendations Notes: increase etomidate to 20 increase sux to 200 add midaz 2 post Pt Tolerated Procedure w/o Issue: Yes
[2025-01-06] MEDS: Lactated Ringers 1,000 ML 50 ML IVCONT (09:27)
--- NOTE | 2025-01-06 10:08 | P.PNPSI_ITS ---
Subjective Subjective Date of Service: 01/06/25 Reason For Visit: depression Interim History: met with patient; discussed with team Patient continues to report doing well and depression much better; he remains at a 4/10. Does not notice the absence of Wellbutrin at all; currently bilateral hand tremors remain. Family meeting with patient's as well and it is agreed patient will continue with ECT this week and discharge home and then continue ECT as an outpatient. Patient agrees with partial day program as a step-down and also wants to re-engage with AA to help with sobriety. Mental Status Exam Mental Status Exam Narrative: Pt is alert and oriented; behavior is cooperative, friendly and calm, more social and engaged; patient is not in distress; dressed in casual attire, unkempt and scruffy but adequate hygiene; mood is described as good and affect brighter, more calm; eye contact appropriate; Speech is sparse but normal rate, volume and prosody and not pressured; much less retardation present; thought process is organized and goal directed; Thought content is on tx; otherwise pertinent to relevant topics and without any delusional content, paranoid ideations or grandiosity; denies any SI/HI. Denies AVH and there is no evidence of perceptual disturbance. Patients insight and judgment fair. Diagnostics Vital Signs (24Hr): Vital Signs - 24 hr 01/05/25 20:00 01/06/25 06:28 01/06/25 08:43 Temperature 98.7 F 97.8 F 98.3 F Pulse Rate 73 88 77 Respiratory Rate 16 18 14 Blood Pressure 113/64 141/69 H 152/83 H Pulse Oximetry 96 97 97 Oxygen Delivery Method Room Air Nasal Cannula with ETCO2 Oxygen Flow Rate 2 01/06/25 08:48 01/06/25 08:53 01/06/25 08:58 Temperature Pulse Rate 74 73 74 Respiratory Rate 16 16 16 Blood Pressure 148/85 H 123/93 H 148/85 H Pulse Oximetry 97 96 96 Oxygen Delivery Method Nasal Cannula with ETCO2 Nasal Cannula with ETCO2 Nasal Cannula with ETCO2 Oxygen Flow Rate 2 2 2 01/06/25 09:13 Temperature Pulse Rate 70 Respiratory Rate 16 Blood Pressure 127/82 Pulse Oximetry 96 Oxygen Delivery Method Room Air Oxygen Flow Rate BMI result Body Mass Index 34.3 Labs 12/19/24 13:34 12/26/24 07:59 Labs: Laboratory Results - last 48 hr 01/06/25 07:02 POC Glucose 104 Medications Medications Current Medications Acetaminophen (Acetaminophen 325 Mg Tablet) 650 mg PO Q6H PRN PRN Reason: Headache/Pain, Scale 1-10 Al Hydroxide/Mg Hydroxide (Magnesium Hydrox/Alum Hydrox 30 Ml Oral.Susp) 30 ml PO Q6H PRN PRN Reason: Heartburn/Nausea Last Admin: 01/02/25 11:26 Dose: 30 ml Amlodipine Besylate (Amlodipine Besylate 10 Mg Tablet) 10 mg PO DAILY [facility]; Protocol Last Admin: 01/05/25 08:49 Dose: 10 mg Atorvastatin Calcium (Atorvastatin Calcium 80 Mg Tablet) 80 mg PO DAILY [facility] Last Admin: 01/05/25 08:49 Dose: 80 mg Ezetimibe (Ezetimibe 10 Mg Tablet) 10 mg PO DAILY [facility] Last Admin: 01/05/25 08:49 Dose: 10 mg Escitalopram Oxalate (Escitalopram Oxalate 20 Mg Tablet) 20 mg PO BEDTIME [facility] Last Admin: 01/05/25 20:51 Dose: 20 mg Fenofibrate (Fenofibrate 160 Mg Tablet) 160 mg PO DAILY [facility] Last Admin: 01/05/25 08:49 Dose: 160 mg Hydroxyzine HCl (Hydroxyzine Hcl 25 Mg Tablet) 25 mg PO Q6H PRN PRN Reason: mild anxiety Last Admin: 12/28/24 20:40 Dose: 25 mg Lurasidone HCl (Lurasidone Hcl 80 Mg Tablet) 80 mg PO DAILY@1700 [facility] Last Admin: 01/05/25 17:29 Dose: 80 mg Magnesium Hydroxide (Milk Of Magnesia 30 Ml Oral.Susp) 30 ml PO DAILY PRN PRN Reason: Constipation Naltrexone HCl (Naltrexone Hcl 50 Mg Tablet) 50 mg PO DAILY [facility] Last Admin: 01/05/25 08:49 Dose: 50 mg Nicotine (Nicotine 21 Mg Patch.Td24) 21 mg TRANSDERMA DAILY PRN PRN Reason: smoking cessation Nicotine Polacrilex (Nicotine Polacrilex 2 Mg Gum) 4 mg BUCCAL Q2H PRN PRN Reason: Nicotine Cravings Omeprazole (Omeprazole 20 Mg Capsule.Dr) 20 mg PO BEDTIME [facility] Last Admin: 01/05/25 20:51 Dose: 20 mg Thiamine HCl (Thiamine Hcl 100 Mg Tablet) 100 mg PO DAILY [facility] Last Admin: 01/05/25 08:49 Dose: 100 mg Trazodone HCl (Trazodone Hcl 100 Mg Tablet) 100 mg PO BEDTIME [facility]YAM Last Admin: 01/05/25 21:01 Dose: 100 mg Trazodone HCl (Trazodone Hcl 50 Mg Tablet) 50 mg PO BEDTIME MRX1 PRN PRN Reason: Insomnia Last Admin: 12/27/24 22:42 Dose: 50 mg Allergies Allergies Allergy/AdvReac Type Severity Reaction Status Date / Time No Known Allergies Allergy Verified 12/19/24 13:11 Assessment & Plan Assessment & Plan (1) Major depressive disorder, recurrent severe without psychotic features: Status: Acute Code(s): F33.2 - Major depressive disorder, recurrent severe without psychotic features (2) ANDREW (generalized anxiety disorder): Status: Acute Code(s): F41.1 - Generalized anxiety disorder (3) Alcohol use: Status: Acute Code(s): F10.90 - Alcohol use, unspecified, uncomplicated Plan HPI: 64 yo MWM with worsening depression - hx TRD and getting TMS here to start ECT for ongoing depressive sys not responding to treatment as usual - ongoing depression, hopeless/helpless feelings- no active si , last SA was 12 year ago when he [facility] while blacked out on alcohol. Also rates high anxiety- staying in bed 22 hrs/day- xs sleep, no energy- increased symptoms of depression such as sleeping 22 hours daily, not showering, not engaged; no SI Hx trying multiple antidepressants Reports decreased appetite, weight , energy , [place] severe , and feelings of guilt- Past Psychiatric History: denies prior psychiatric hospitalization last suicide attempt 12 years ago; . He has had 2 prior suicide attempts which he says I was blackout drunk . Hospital course: Patient reports depression/anxiety for years; Patient says lots of med trials, including TMS; Reports history therapy but not consistent restarted drinking 2 weeks ago after 2 years sober; says only 2 nips a day. Initially said he was not drinking at all but patient explains this because his was present and he did not want her to know he relapsed Discussed with patient ECT, risks/side effects and treatment plan; patient eager to embark. Also discussed medication management and he has been on Wellbutrin and Latuda current doses for 2 years and agrees to increase. Discussed behavioral activation and patient says he will engage 8/5 Review of chart shows that patient's BAL was >200 and given his size, not possible that he was only drinking 2 nips a day; verse writer presented this to patient who confirmed that he was drinking closer to 5 drinks a day. Denies any alcohol withdrawal and says that his hand shakes her due to Wellbutrin which he gets every day since he has been taking it. Discussed behavioral activation and patient agreed to shower and get dressed. -patient looks like he is in alcohol withdrawal even though he denies it. Will schedule Ativan 1 mg t.i.d. for now to mitigate what is likely withdrawal 12/25 says little better with med increase; still wants ect; says not in any withdrawal -will proceed with ECT 12/26: Patient reports severe anxiety and depression. He has been sleeping well. He has been taking his medications. He attended 1 group so far. He denies SI/HI/AH/VH. Continue current treatment regimen. ECT scheduled tomorrow. 12/27 Talked about addiction to alcohol; patient was sober for 2 years during which time he to today a however he was still quite depressed despite being on medications. Patient initially ambivalent about his need for AA support agreed that it will be difficult for him to remain sober unless really engages in AA and outpatient treatment. Discussed ECT and patient denies any side effects and wants to continue; discussed medications and he agrees to increasing Latuda -says Topamax was for alcohol cravings which he said was helpful; agrees to have it held during ECT 12/28: Continue current management and treatment plan ECT. 12/29: continue current management and treatment plan. NPO post MN. 12/30/24: Patient slept for 8 hours, was medication compliant, denies side effects from medication. Review the medication list with him as he not remember what he has been taking. Patient denies side effects from ECT this his 2nd session. Denies headache, memory issues. He observe attended groups after ECT. Reports anxiety and depression a /10 which he reported has been much better compared to the past week.flat affect, but pleasant, and cooperative. Denies safety concerns. Denies hallucinations. 12/31 Patient noticeably brighter, attending groups. He says he starting to feel better as well. No troubles with ECT and wants to continue. -continue with ECT -will leave medication as current regimen 01/01 pt reports still depressed and still worried, but overall feels depression slowly improving; he has more energy, does not feel as shut down and more optimistic. Discussed medications, ECT and pt wants to continue and reassess after a few more ECT treatments. Discussed Partial day program post discharge and he agrees good idea. 01/02 remains slowly improving; continue ECT; family meeting next week. agrees improving. Pt agrees with partial day program 01/03 pt says depression little better still now 08/29. ECT well tolerated. Discussed Wellbutrin and pt says side-effect of b/l arm tremor really bothers him; he'll tolerate it if it's actually treating his depression. Discussed how Wellbutrin 300mg did nothing for him and so given improvement, pt agrees to drop Wellbutrin back down to 300mg and continue to taper until DC and see if mood remains improved without it; otherwise, will restart 01/04 Patient reports mood continues to be better and he is very grateful for having started ECT. Discussed continued bilateral arm tremor which seems to have been due to Wellbutrin. Patient agrees to continue tapering off and discontinuing Wellbutrin to see if depression returns and to see if shaking stops. 01/05 feeling better; discussed ECT and will continue; discussed Wellbutrin and he thinks tremor is less w/ reduced wellbutin dose and agrees to dc and see how it goes. Impression: pt starting to improve, but remains fragile and requires additional ECT treatments and continued improvement before can conclude treatment effect. Also, discontinuing Wellbutrin due to bothersome side effect and concern for lack of efficacy. If depression returns will conclude that increased Wellbutrin has been part of improvement in mood. 01/06 Patient continues to report doing well and depression much better; he remains at a 4/10. Does not notice the absence of Wellbutrin at all; currently bilateral hand tremors remain. Family meeting with patient's as well and it is agreed patient will continue with ECT this week and discharge home and then continue ECT as an outpatient. Patient agrees with partial day program as a step-down and also wants to re-engage with AA to help with sobriety. -continue with ECT; will monitor now that patient is off Wellbutrin. Will start to move patient to outpatient ECT Plan: CV Q 15 minute checks ECT Mon, Mon, and Monday DC wellbutrin XL (not convinced that increase to 450mg is contributory; pt has been on 300 mg for 2 years with no benefit) Continue with Latuda 80mg daily (has been on 40 mg for 2 years) Continue Lexapro 20 mg daily Continue Naltrexone 50mg daily HOLD topomax 50mg while getting ECT Continue trazodone 100mg bedtime Past med trials: Not sure therapeutic duration and dose; Abilify Lamictal [place] Paxil Effexor Risperidone Patient educated on: diagnosis, medication risk/benefits, substance abuse, ECT and therapeutic strategies Informed Consent: understands Reason for continued inpatient stay Substantial Risk for: stable for discharge Time Spent With Patient Time: Total time managing care of this patient today ____ minutes.
[2025-01-07 08:00] VITALS: BP 116/72; PULSE 72; TEMP 36.4; O2SAT 98
--- NOTE | 2025-01-07 08:46 | P.PNPSI_ITS ---
Subjective Subjective Date of Service: 01/07/25 Reason For Visit: depression Interim History: Met with patient; discussed with team Doing better; seems that bilateral arm shakiness is a little less off Wellbutrin has only been 2 days now so will keep monitoring. Patient does not notice being off it at all. Again discussed ECT and patient will continue as an inpatient on Monday and then again on Monday. Patient agrees to than continue ECT as an outpatient. Mental Status Exam Mental Status Exam Narrative: Pt is alert and oriented; behavior is cooperative, friendly and calm, more social and engaged; patient is not in distress; dressed in casual attire, unkempt and scruffy but adequate hygiene; mood is described as good and affect brighter, more calm; eye contact appropriate; Speech is sparse but normal rate, volume and prosody and not pressured; much less retardation present; thought process is organized and goal directed; Thought content is on tx; otherwise pertinent to relevant topics and without any delusional content, paranoid ideations or grandiosity; denies any SI/HI. Denies AVH and there is no evidence of perceptual disturbance. Patients insight and judgment fair. Diagnostics Vital Signs (24Hr): Vital Signs - 24 hr 01/06/25 08:48 01/06/25 08:53 01/06/25 08:58 Temperature Pulse Rate 74 73 74 Respiratory Rate 16 16 16 Blood Pressure 148/85 H 123/93 H 148/85 H Pulse Oximetry 97 96 96 Oxygen Delivery Method Nasal Cannula with ETCO2 Nasal Cannula with ETCO2 Nasal Cannula with ETCO2 Oxygen Flow Rate 2 2 2 01/06/25 09:13 01/06/25 10:00 01/06/25 10:26 Temperature 98 F Pulse Rate 70 88 Respiratory Rate 16 14 Blood Pressure 127/82 132/78 132/76 Pulse Oximetry 96 Oxygen Delivery Method Room Air Oxygen Flow Rate 01/06/25 20:00 01/07/25 08:00 Temperature 98.6 F 97.6 F Pulse Rate 70 72 Respiratory Rate 18 Blood Pressure 119/64 116/72 Pulse Oximetry 98 98 Oxygen Delivery Method Room Air Room Air Oxygen Flow Rate BMI result Body Mass Index 34.3 Labs 12/19/24 13:34 12/26/24 07:59 Labs: Laboratory Results - last 48 hr 01/06/25 07:02 POC Glucose 104 Medications Medications Current Medications Acetaminophen (Acetaminophen 325 Mg Tablet) 650 mg PO Q6H PRN PRN Reason: Headache/Pain, Scale 1-10 Al Hydroxide/Mg Hydroxide (Magnesium Hydrox/Alum Hydrox 30 Ml Oral.Susp) 30 ml PO Q6H PRN PRN Reason: Heartburn/Nausea Last Admin: 01/02/25 11:26 Dose: 30 ml Amlodipine Besylate (Amlodipine Besylate 10 Mg Tablet) 10 mg PO DAILY [facility]; Protocol Last Admin: 01/07/25 08:44 Dose: 10 mg Atorvastatin Calcium (Atorvastatin Calcium 80 Mg Tablet) 80 mg PO DAILY [facility] Last Admin: 01/07/25 08:44 Dose: 80 mg Ezetimibe (Ezetimibe 10 Mg Tablet) 10 mg PO DAILY [facility] Last Admin: 01/07/25 08:44 Dose: 10 mg Escitalopram Oxalate (Escitalopram Oxalate 20 Mg Tablet) 20 mg PO BEDTIME [facility] Last Admin: 01/06/25 21:33 Dose: 20 mg Fenofibrate (Fenofibrate 160 Mg Tablet) 160 mg PO DAILY [facility] Last Admin: 01/07/25 08:44 Dose: 160 mg Hydroxyzine HCl (Hydroxyzine Hcl 25 Mg Tablet) 25 mg PO Q6H PRN PRN Reason: mild anxiety Last Admin: 12/28/24 20:40 Dose: 25 mg Lurasidone HCl (Lurasidone Hcl 80 Mg Tablet) 80 mg PO DAILY@1700 [facility] Last Admin: 01/06/25 17:23 Dose: 80 mg Magnesium Hydroxide (Milk Of Magnesia 30 Ml Oral.Susp) 30 ml PO DAILY PRN PRN Reason: Constipation Naltrexone HCl (Naltrexone Hcl 50 Mg Tablet) 50 mg PO DAILY [facility] Last Admin: 01/07/25 08:44 Dose: 50 mg Nicotine (Nicotine 21 Mg Patch.Td24) 21 mg TRANSDERMA DAILY PRN PRN Reason: smoking cessation Nicotine Polacrilex (Nicotine Polacrilex 2 Mg Gum) 4 mg BUCCAL Q2H PRN PRN Reason: Nicotine Cravings Omeprazole (Omeprazole 20 Mg Capsule.Dr) 20 mg PO BEDTIME [facility] Last Admin: 01/06/25 21:33 Dose: 20 mg Thiamine HCl (Thiamine Hcl 100 Mg Tablet) 100 mg PO DAILY [facility] Last Admin: 01/07/25 08:44 Dose: 100 mg Trazodone HCl (Trazodone Hcl 100 Mg Tablet) 100 mg PO BEDTIME [facility] Last Admin: 01/06/25 21:32 Dose: 100 mg Trazodone HCl (Trazodone Hcl 50 Mg Tablet) 50 mg PO BEDTIME MRX1 PRN PRN Reason: Insomnia Last Admin: 12/27/24 22:42 Dose: 50 mg Allergies Allergies Allergy/AdvReac Type Severity Reaction Status Date / Time No Known Allergies Allergy Verified 12/19/24 13:11 Assessment & Plan Assessment & Plan (1) Major depressive disorder, recurrent severe without psychotic features: Status: Acute Code(s): F33.2 - Major depressive disorder, recurrent severe without psychotic features (2) ANDREW (generalized anxiety disorder): Status: Acute Code(s): F41.1 - Generalized anxiety disorder (3) Alcohol use: Status: Acute Code(s): F10.90 - Alcohol use, unspecified, uncomplicated Plan HPI: 64 yo MWM with worsening depression - hx TRD and getting TMS here to start ECT for ongoing depressive sys not responding to treatment as usual - ongoing depression, hopeless/helpless feelings- no active si , last SA was 12 year ago when he [facility] while blacked out on alcohol. Also rates high anxiety- staying in bed 22 hrs/day- xs sleep, no energy- increased symptoms of depression such as sleeping 22 hours daily, not showering, not engaged; no SI Hx trying multiple antidepressants Reports decreased appetite, weight , energy , [place] severe , and feelings of guilt- Past Psychiatric History: denies prior psychiatric hospitalization last suicide attempt 12 years ago; . He has had 2 prior suicide attempts which he says I was blackout drunk . Hospital course: Patient reports depression/anxiety for years; Patient says lots of med trials, including TMS; Reports history therapy but not consistent restarted drinking 2 weeks ago after 2 years sober; says only 2 nips a day. Initially said he was not drinking at all but patient explains this because his was present and he did not want her to know he relapsed Discussed with patient ECT, risks/side effects and treatment plan; patient eager to embark. Also discussed medication management and he has been on Wellbutrin and Latuda current doses for 2 years and agrees to increase. Discussed behavioral activation and patient says he will engage 8/5 Review of chart shows that patient's BAL was >200 and given his size, not possible that he was only drinking 2 nips a day; conventional mortgage underwriter presented this to patient who confirmed that he was drinking closer to 5 drinks a day. Denies any alcohol withdrawal and says that his hand shakes her due to Wellbutrin which he gets every day since he has been taking it. Discussed behavioral activation and patient agreed to shower and get dressed. -patient looks like he is in alcohol withdrawal even though he denies it. Will schedule Ativan 1 mg t.i.d. for now to mitigate what is likely withdrawal 12/25 says little better with med increase; still wants ect; says not in any withdrawal -will proceed with ECT 12/26: Patient reports severe anxiety and depression. He has been sleeping well. He has been taking his medications. He attended 1 group so far. He denies SI/HI/AH/VH. Continue current treatment regimen. ECT scheduled tomorrow. 12/27 Talked about addiction to alcohol; patient was sober for 2 years during which time he to today a however he was still quite depressed despite being on medications. Patient initially ambivalent about his need for AA support agreed that it will be difficult for him to remain sober unless really engages in AA and outpatient treatment. Discussed ECT and patient denies any side effects and wants to continue; discussed medications and he agrees to increasing Latuda -says Topamax was for alcohol cravings which he said was helpful; agrees to have it held during ECT 12/28: Continue current management and treatment plan ECT. 12/29: continue current management and treatment plan. NPO post MN. 12/30/24: Patient slept for 8 hours, was medication compliant, denies side effects from medication. Review the medication list with him as he not remember what he has been taking. Patient denies side effects from ECT this his 2nd session. Denies headache, memory issues. He observe attended groups after ECT. Reports anxiety and depression a 11/28 which he reported has been much better compared to the past week.flat affect, but pleasant, and cooperative. Denies safety concerns. Denies hallucinations. 12/31 Patient noticeably brighter, attending groups. He says he starting to feel better as well. No troubles with ECT and wants to continue. -continue with ECT -will leave medication as current regimen 01/01 pt reports still depressed and still worried, but overall feels depression slowly improving; he has more energy, does not feel as shut down and more optimistic. Discussed medications, ECT and pt wants to continue and reassess after a few more ECT treatments. Discussed Partial day program post discharge and he agrees good idea. 01/02 remains slowly improving; continue ECT; family meeting next week. agrees improving. Pt agrees with partial day program 01/03 pt says depression little better still now 4/10. ECT well tolerated. Discussed Wellbutrin and pt says side-effect of b/l arm tremor really bothers him; he'll tolerate it if it's actually treating his depression. Discussed how Wellbutrin 300mg did nothing for him and so given improvement, pt agrees to drop Wellbutrin back down to 300mg and continue to taper until DC and see if mood remains improved without it; otherwise, will restart 01/04 Patient reports mood continues to be better and he is very grateful for having started ECT. Discussed continued bilateral arm tremor which seems to have been due to Wellbutrin. Patient agrees to continue tapering off and discontinuing Wellbutrin to see if depression returns and to see if shaking stops. 01/05 feeling better; discussed ECT and will continue; discussed Wellbutrin and he thinks tremor is less w/ reduced wellbutin dose and agrees to dc and see how it goes. Impression: pt starting to improve, but remains fragile and requires additional ECT treatments and continued improvement before can conclude treatment effect. Also, discontinuing Wellbutrin due to bothersome side effect and concern for lack of efficacy. If depression returns will conclude that increased Wellbutrin has been part of improvement in mood. 01/06 Patient continues to report doing well and depression much better; he remains at a 4/10. Does not notice the absence of Wellbutrin at all; currently bilateral hand tremors remain. Family meeting with patient's as well and it is agreed patient will continue with ECT this week and discharge home and then continue ECT as an outpatient. Patient agrees with partial day program as a step-down and also wants to re-engage with AA to help with sobriety. -continue with ECT; will monitor now that patient is off Wellbutrin. Will start to move patient to outpatient ECT 01/07 Doing better; seems that bilateral arm shakiness is a little less off Wellbutrin has only been 2 days now so will keep monitoring. Patient does not notice being off it at all. Again discussed ECT and patient will continue as an inpatient on Monday and then again on Monday. Patient agrees to than continue ECT as an outpatient. Of note, this Monday patient has no one at home to monitor him post ECT making Monday discharge problematic; it is in patient's best interest to remain on the unit Monday and then discharge Monday at which time he will have support. Plan: CV Q 15 minute checks ECT Mon, Mon, and Monday DC wellbutrin XL (not convinced that increase to 450mg is contributory; pt has been on 300 mg for 2 years with no benefit) Continue with Latuda 80mg daily (has been on 40 mg for 2 years) Continue Lexapro 20 mg daily Continue Naltrexone 50mg daily HOLD topomax 50mg while getting ECT Continue trazodone 100mg bedtime Past med trials: Not sure therapeutic duration and dose; Abilify Lamictal [place] Paxil Effexor Risperidone Patient educated on: diagnosis, medication risk/benefits and ECT Reason for continued inpatient stay Substantial Risk for: stable for discharge and med/psych decompensation Time Spent With Patient Time: Total time managing care of this patient today ____ minutes.
[2025-01-07 20:10] VITALS: BP 118/64; PULSE 76; RESP 16; TEMP 36.9; O2SAT 95
[2025-01-08] VITALS (9 sets, daily range): BP systolic 122–144; BP diastolic 77–89; PULSE 66–77; RESP 12–20; TEMP 36.2–37.1; O2SAT 94–98
--- NOTE | 2025-01-08 06:54 | HO.ANESPROP2 ---
[facility] Active Problems Active Problems: All Active Problems Hypertriglyceridemia (Acute) Depression (Acute) Elevated LFTs (Acute) Alcohol use (Acute) Fatigue (Acute) ANDREW (generalized anxiety disorder) (Acute) Major depressive disorder, recurrent severe without psychotic features (Acute) Past Medical History Medical History Fatigue Family History Family history of problems with anesthesia: No Surgical History History of Problems with Anesthesia: No Social History Social History Household Members: Spouse Housing: House Do you presently have visiting nurse or other home services: No Alcohol intake: former Patient Tobacco Use Status: Never used Tobacco Smoked in Last 30 Days: No Use of substances other than those prescribed or required for medical reasons: No Currently Displaying Signs/Symptoms of Drug Intoxication Withdrawal: No Have you been hit, kicked, punched, or otherwise hurt by someone within the past year? If so, by whom?: No Do you feel safe in your current relationship?: No Is there a partner from a previous relationship who is making you feel unsafe now?: No Are you made to feel afraid or neglected: No Spiritual Healthcare Practices: none [facility] Practices: none Cultural Healthcare Practices: none Advance Directives: No Advance Directives Information Provided: Yes Do you have thoughts of harming others: None Do you have a plan to hurt others: No Plan Recently lost weight without trying: No How much weight loss: Not applicable Eating poorly because of decreased appetite: No Nutrition screen score: 0 Nutrition Risks: No Nutritional Risk Poor oral hygiene: No service: No Sexual orientation: Straight/Heterosexual Meds Allergies Allergy/AdvReac Type Severity Reaction Status Date / Time No Known Allergies Allergy Verified 12/19/24 13:11 Active Medications: Current Medications Acetaminophen (Acetaminophen 325 Mg Tablet) 650 mg PO Q6H PRN PRN Reason: Headache/Pain, Scale 1-10 Al Hydroxide/Mg Hydroxide (Magnesium Hydrox/Alum Hydrox 30 Ml Oral.Susp) 30 ml PO Q6H PRN PRN Reason: Heartburn/Nausea Last Admin: 01/02/25 11:26 Dose: 30 ml Amlodipine Besylate (Amlodipine Besylate 10 Mg Tablet) 10 mg PO DAILY [facility]; Protocol Last Admin: 01/07/25 08:44 Dose: 10 mg Atorvastatin Calcium (Atorvastatin Calcium 80 Mg Tablet) 80 mg PO DAILY [facility] Last Admin: 01/07/25 08:44 Dose: 80 mg Ezetimibe (Ezetimibe 10 Mg Tablet) 10 mg PO DAILY [facility] Last Admin: 01/07/25 08:44 Dose: 10 mg Escitalopram Oxalate (Escitalopram Oxalate 20 Mg Tablet) 20 mg PO BEDTIME [facility] Last Admin: 01/07/25 21:16 Dose: 20 mg Fenofibrate (Fenofibrate 160 Mg Tablet) 160 mg PO DAILY [facility] Last Admin: 01/07/25 08:44 Dose: 160 mg Hydroxyzine HCl (Hydroxyzine Hcl 25 Mg Tablet) 25 mg PO Q6H PRN PRN Reason: mild anxiety Last Admin: 12/28/24 20:40 Dose: 25 mg Lactated Ringer's (Lr) 1,000 mls @ 50 mls/hr IVCONT .Q20H [facility] Lurasidone HCl (Lurasidone Hcl 80 Mg Tablet) 80 mg PO DAILY@1700 [facility] Last Admin: 01/07/25 16:05 Dose: 80 mg Magnesium Hydroxide (Milk Of Magnesia 30 Ml Oral.Susp) 30 ml PO DAILY PRN PRN Reason: Constipation Naltrexone HCl (Naltrexone Hcl 50 Mg Tablet) 50 mg PO DAILY [facility] Last Admin: 01/07/25 08:44 Dose: 50 mg Nicotine (Nicotine 21 Mg Patch.Td24) 21 mg TRANSDERMA DAILY PRN PRN Reason: smoking cessation Nicotine Polacrilex (Nicotine Polacrilex 2 Mg Gum) 4 mg BUCCAL Q2H PRN PRN Reason: Nicotine Cravings Omeprazole (Omeprazole 20 Mg Capsule.Dr) 20 mg PO BEDTIME [facility] Last Admin: 01/07/25 21:16 Dose: 20 mg Thiamine HCl (Thiamine Hcl 100 Mg Tablet) 100 mg PO DAILY [facility] Last Admin: 01/07/25 08:44 Dose: 100 mg Trazodone HCl (Trazodone Hcl 100 Mg Tablet) 100 mg PO BEDTIME [facility] Last Admin: 01/07/25 21:16 Dose: 100 mg Trazodone HCl (Trazodone Hcl 50 Mg Tablet) 50 mg PO BEDTIME MRX1 PRN PRN Reason: Insomnia Last Admin: 12/27/24 22:42 Dose: 50 mg Home Medications ?Medication ?Instructions ?Recorded ?Confirmed ?Last Taken ?Type amlodipine 10 mg tablet 10 mg PO DAILY 12/19/24 12/19/24 Unknown History bupropion HCl 300 mg 24 hr tablet, 300 mg PO QAM 12/19/24 12/19/24 Unknown History extended release escitalopram oxalate 20 mg tablet 20 mg PO BEDTIME 12/19/24 12/19/24 Unknown History ezetimibe 10 mg tablet 10 mg PO DAILY 12/19/24 12/19/24 Unknown History fenofibrate 160 mg tablet 160 mg PO DAILY 12/19/24 12/19/24 Unknown History lurasidone 40 mg tablet 40 mg PO QPM 12/19/24 12/19/24 Unknown History metformin 500 mg tablet,extended 500 mg PO DAILY 12/19/24 12/19/24 Unknown History release 24 hr naltrexone 50 mg tablet 50 mg PO DAILY 12/19/24 12/19/24 Unknown History omega-3 acid ethyl esters 1 gram 2 cap PO BID 12/19/24 12/19/24 Unknown History capsule rosuvastatin 20 mg tablet 20 mg PO DAILY 12/19/24 12/19/24 Unknown History topiramate 50 mg tablet 50 mg PO BEDTIME 12/19/24 12/19/24 Unknown History trazodone 100 mg tablet 100 mg PO BEDTIME 12/19/24 12/19/24 Unknown History Exam Height,Weight and Vital Signs: Height 5 ft 8 in Weight 102.3 kg Last Vital Signs Temp 97.4 F 01/08/25 06:31 Pulse 69 01/08/25 06:31 Resp 16 01/08/25 06:31 BP 136/85 01/08/25 06:31 Pulse Ox 96 01/08/25 06:31 O2 Del Method Room Air 01/08/25 06:31 O2 Flow Rate 2 01/06/25 08:58 Pertinent Lab Results Pertinent Lab Results: Laboratory Tests 12/19/24 12/19/24 12/21/24 13:34 16:58 07:31 WBC 7.4 RBC 5.07 Hgb 16.1 Hct 44.1 MCV 87.0 MCH 31.8 MCHC 36.5 H RDW 13.3 Plt Count 212 MPV 8.9 L Immature Gran % (Auto) 0.9 H Neut % (Auto) 52.0 Lymph % (Auto) 36.7 Antelope % (Auto) 8.3 Eos % (Auto) 1.4 Baso % (Auto) 0.7 Lymph # (Auto) 2.7 [place]elope # (Auto) 0.6 Eos # (Auto) 0.1 Baso # (Auto) 0.1 Abs Immat Gran (auto) 0.07 H Absolute Neuts (auto) 3.8 Absolute Nucleated RBC 0.000 Nucleated RBC % (auto) 0.0 Sodium 141 141 Potassium 3.5 3.9 Chloride 106 107 Carbon Dioxide 22 24 Anion Gap 17 14 BUN 11 10 Creatinine 0.92 0.98 Estim Creat Clear Calc 95.3 89.4 Estimated GFR > 60 > 60 POC Glucose Random Glucose 90 107 Estimat Average Glucose 88 Hemoglobin A1c % 4.7 Calcium 8.6 9.1 Magnesium 1.8 Total Bilirubin 0.9 1.2 H AST 206 H 122 H ALT 182 H 115 H Alkaline Phosphatase 109 95 Total Protein 7.0 6.5 Albumin 4.4 4.2 Triglycerides 217 H Cholesterol 141 LDL Cholesterol, Calc 53 HDL Cholesterol 45 TSH 1.59 2.23 Urine Color Dark Yellow Urine Appearance Clear Urine pH 6.5 Ur Specific [place] 1.020 Urine Protein Trace Urine Glucose (UA) Negative Urine Ketones Trace Urine Blood Negative Urine Nitrite Negative Ur Leukocyte Esterase Small (1+) H Urine RBC 0-2 Urine WBC 6-10 H Ur Squamous Epith Cells 3-5 Urine Bacteria None Seen Hyaline Casts 3-5 Salicylates < 5.0 L Urine Opiates Screen Not Detected Ur Buprenorphine Scrn Not Detected Ur Oxycodone Screen Not Detected Urine Methadone Screen Not Detected Urine Fentanyl Screen Not Detected Acetaminophen < 3 Ur Barbiturates Screen Not Detected Ur Phencyclidine Scrn Not Detected Ur Amphetamines Screen Not Detected U Benzodiazepines Scrn Not Detected Urine Cocaine Screen Not Detected U Marijuana (THC) Screen Not Detected Ethyl Alcohol 127 12/26/24 01/06/25 07:59 07:02 WBC RBC Hgb Hct MCV MCH MCHC RDW Plt Count MPV Immature Gran % (Auto) Neut % (Auto) Lymph % (Auto) [place]elope % (Auto) Eos % (Auto) Baso % (Auto) Lymph # (Auto) [place] # (Auto) Eos # (Auto) Baso # (Auto) Abs Immat Gran (auto) Absolute Neuts (auto) Absolute Nucleated RBC Nucleated RBC % (auto) Sodium Potassium Chloride Carbon Dioxide Anion Gap BUN Creatinine 1.06 Estim Creat Clear Calc 82.6 Estimated GFR > 60 POC Glucose 104 Random Glucose Estimat Average Glucose Hemoglobin A1c % Calcium Magnesium Total Bilirubin AST ALT Alkaline Phosphatase Total Protein Albumin Triglycerides Cholesterol LDL Cholesterol, Calc HDL Cholesterol TSH Urine Color Urine Appearance Urine pH Ur Specific [place] Urine Protein Urine Glucose (UA) Urine Ketones Urine Blood Urine Nitrite Ur Leukocyte Esterase Urine RBC Urine WBC Ur Squamous Epith Cells Urine Bacteria Hyaline Casts Salicylates Urine Opiates Screen Ur Buprenorphine Scrn Ur Oxycodone Screen Urine Methadone Screen Urine Fentanyl Screen Acetaminophen Ur Barbiturates Screen Ur Phencyclidine Scrn Ur Amphetamines Screen U Benzodiazepines Scrn Urine Cocaine Screen U Marijuana (THC) Screen Ethyl Alcohol Airway Mallampati Class: II (thick neck) TM Dist: >3cm Neck ROM: Full Heart: rrr Lungs: cta Assessment and Plan Assessment Anesthesia Assessment: Anesthesia Plan Discussed and Chart Reviewed Final Anesthetic Review Family History of Problems with Anesthesia: No History of Problems with Anesthesia: No NPO: Yes ASA Class: III Final Preanesthetic Review: No Changes in Pt Med Stat, Meds/Allgs Chart Reviewed and Consent Obtained/Reviewed Patient Risk: Intermediate Procedure Risk: Intermediate Anesthetic Plan Anesthetic Plan: GA Disposition: Standard PACU
--- NOTE | 2025-01-08 07:50 | MHC.SHP ---
Pre-Procedural Eval Section A - 24 Hr Update-Section A only Date of Service: 01/08/25 The patient is an INPATIENT: Yes Changes since office visit: Yes Patient answered all questions; No Cold of Flu in the past 2 weeks, No New Medical Problems and No Changes in Medication The patient has been examined within 24 hours of the surgical procedure. The History & Physical has been completed within 30 days and I have reviewed it.: Yes Section B - Complete if H&P > 30 days Chief Complaint: depression Allergies: Allergies Allergy/AdvReac Type Severity Reaction Status Date / Time No Known Allergies Allergy Verified 12/19/24 13:11 Plan Diagnosis/Plan: Unchanged I have reviewed the history and physical and performed a pertinent physical examination on my patient. No changes have occurred unless specified. Time Spent With Patient Time: Total time managing care of this patient today ____ minutes.
--- NOTE | 2025-01-08 08:16 | HO.ECTPROC ---
ECT Procedure Note Diagnosis/Treatment Date of Service: 01/08/25 Diagnosis: Major Depressive Disorder Previous ECT Date: 01/03/25 Current Treatment Number: 5 Treatment: Series Interval Clinical Notes: feeling improved generally no c/o side effects Time: Total time managing care of this patient today _30___ minutes. ECT Settings Device: THYMATRON DGx Electrode Placement: Right Unilateral Program/Pulse Width: 0.50 Energy Percent: 100 Seizure Duration By EEG (in seconds): 34 Medications Administration General Anesthetic: Etomidate (18) Muscle Relaxant: Succinylcholine (180) Ancillary Medications Cardiovascular Medications: Glycopyrrolate Miscillaneous Medications: Midazolam (2) Airway Management Airway Management: LMA Treatment Recommendations No Changes Recommended: No change Pt Tolerated Procedure w/o Issue: Yes
--- NOTE | 2025-01-08 08:40 | HO.PSYCHPN ---
Subjective Subjective Date of Service: 01/08/25 Reason For Visit: depression Interim History: Met with patient; discussed with team pt remains doing better; ECT today without problems. Still has tremor but says it is less, about a 7/10, 10 being the worst. Patient continues to not miss Wellbutrin and agrees with continue treatment plan. Mental Status Exam Mental Status Exam Narrative: Pt is alert and oriented; behavior is cooperative, friendly and calm, more social and engaged; patient is not in distress; dressed in casual attire, unkempt and scruffy but adequate hygiene; mood is described as good and affect brighter, more calm; eye contact appropriate; Speech is sparse but normal rate, volume and prosody and not pressured; much less retardation present; thought process is organized and goal directed; Thought content is on tx; otherwise pertinent to relevant topics and without any delusional content, paranoid ideations or grandiosity; denies any SI/HI. Denies AVH and there is no evidence of perceptual disturbance. Patients insight and judgment fair. Diagnostics Vital Signs (24Hr): Vital Signs - 24 hr 01/07/25 20:10 01/08/25 06:31 01/08/25 08:23 Temperature 98.5 F 97.4 F 97.6 F Pulse Rate 76 69 77 Respiratory Rate 16 16 12 Blood Pressure 118/64 136/85 139/84 Pulse Oximetry 95 96 96 Oxygen Delivery Method Room Air Room Air Nasal Cannula with ETCO2 Oxygen Flow Rate 2 01/08/25 08:28 01/08/25 08:33 Temperature Pulse Rate 77 76 Respiratory Rate 18 20 Blood Pressure 136/85 144/86 H Pulse Oximetry 97 97 Oxygen Delivery Method Nasal Cannula with ETCO2 Nasal Cannula with ETCO2 Oxygen Flow Rate 2 2 BMI result Body Mass Index 34.3 Labs 12/19/24 13:34 12/26/24 07:59 Medications Medications Current Medications Acetaminophen (Acetaminophen 325 Mg Tablet) 650 mg PO Q6H PRN PRN Reason: Headache/Pain, Scale 1-10 Al Hydroxide/Mg Hydroxide (Magnesium Hydrox/Alum Hydrox 30 Ml Oral.Susp) 30 ml PO Q6H PRN PRN Reason: Heartburn/Nausea Last Admin: 01/02/25 11:26 Dose: 30 ml Amlodipine Besylate (Amlodipine Besylate 10 Mg Tablet) 10 mg PO DAILY PAYAM; Protocol Last Admin: 01/07/25 08:44 Dose: 10 mg Atorvastatin Calcium (Atorvastatin Calcium 80 Mg Tablet) 80 mg PO DAILY [facility] Last Admin: 01/07/25 08:44 Dose: 80 mg Ezetimibe (Ezetimibe 10 Mg Tablet) 10 mg PO DAILY [facility] Last Admin: 01/07/25 08:44 Dose: 10 mg Escitalopram Oxalate (Escitalopram Oxalate 20 Mg Tablet) 20 mg PO BEDTIME [facility] Last Admin: 01/07/25 21:16 Dose: 20 mg Fenofibrate (Fenofibrate 160 Mg Tablet) 160 mg PO DAILY [facility] Last Admin: 01/07/25 08:44 Dose: 160 mg Hydroxyzine HCl (Hydroxyzine Hcl 25 Mg Tablet) 25 mg PO Q6H PRN PRN Reason: mild anxiety Last Admin: 12/28/24 20:40 Dose: 25 mg Lactated Ringer's (Lr) 1,000 mls @ 50 mls/hr IVCONT .Q20H [facility] Lurasidone HCl (Lurasidone Hcl 80 Mg Tablet) 80 mg PO DAILY@1700 [facility] Last Admin: 01/07/25 16:05 Dose: 80 mg Magnesium Hydroxide (Milk Of Magnesia 30 Ml Oral.Susp) 30 ml PO DAILY PRN PRN Reason: Constipation Naloxone HCl (Naloxone Hcl 0.4 Mg/Ml Vial) 0.04 mg IVPUSH Q5M PRN PRN Reason: Excessive sedation or RR < 8 Naltrexone HCl (Naltrexone Hcl 50 Mg Tablet) 50 mg PO DAILY [facility] Last Admin: 01/07/25 08:44 Dose: 50 mg Nicotine (Nicotine 21 Mg Patch.Td24) 21 mg TRANSDERMA DAILY PRN PRN Reason: smoking cessation Nicotine Polacrilex (Nicotine Polacrilex 2 Mg Gum) 4 mg BUCCAL Q2H PRN PRN Reason: Nicotine Cravings Omeprazole (Omeprazole 20 Mg Capsule.Dr) 20 mg PO BEDTIME [facility] Last Admin: 01/07/25 21:16 Dose: 20 mg Thiamine HCl (Thiamine Hcl 100 Mg Tablet) 100 mg PO DAILY [facility] Last Admin: 01/07/25 08:44 Dose: 100 mg Trazodone HCl (Trazodone Hcl 100 Mg Tablet) 100 mg PO BEDTIME [facility] Last Admin: 01/07/25 21:16 Dose: 100 mg Trazodone HCl (Trazodone Hcl 50 Mg Tablet) 50 mg PO BEDTIME MRX1 PRN PRN Reason: Insomnia Last Admin: 12/27/24 22:42 Dose: 50 mg Allergies Allergies Allergy/AdvReac Type Severity Reaction Status Date / Time No Known Allergies Allergy Verified 12/19/24 13:11 Assessment & Plan Assessment & Plan (1) Major depressive disorder, recurrent severe without psychotic features: Status: Acute Code(s): F33.2 - Major depressive disorder, recurrent severe without psychotic features (2) ANDREW (generalized anxiety disorder): Status: Acute Code(s): F41.1 - Generalized anxiety disorder (3) Alcohol use: Status: Acute Code(s): F10.90 - Alcohol use, unspecified, uncomplicated Plan HPI: 64 yo MWM with worsening depression - hx TRD and getting TMS here to start ECT for ongoing depressive sys not responding to treatment as usual - ongoing depression, hopeless/helpless feelings- no active si , last SA was 12 year ago when he [facility] while blacked out on alcohol. Also rates high anxiety- staying in bed 22 hrs/day- xs sleep, no energy- increased symptoms of depression such as sleeping 22 hours daily, not showering, not engaged; no SI Hx trying multiple antidepressants Reports decreased appetite, weight , energy , [place] severe , and feelings of guilt- Past Psychiatric History: denies prior psychiatric hospitalization last suicide attempt 12 years ago; . He has had 2 prior suicide attempts which he says I was blackout drunk . Hospital course: Patient reports depression/anxiety for years; Patient says lots of med trials, including TMS; Reports history therapy but not consistent restarted drinking 2 weeks ago after 2 years sober; says only 2 nips a day. Initially said he was not drinking at all but patient explains this because his was present and he did not want her to know he relapsed Discussed with patient ECT, risks/side effects and treatment plan; patient eager to embark. Also discussed medication management and he has been on Wellbutrin and Latuda current doses for 2 years and agrees to increase. Discussed behavioral activation and patient says he will engage 8/5 Review of chart shows that patient's BAL was >200 and given his size, not possible that he was only drinking 2 nips a day; television script writer presented this to patient who confirmed that he was drinking closer to 5 drinks a day. Denies any alcohol withdrawal and says that his hand shakes her due to Wellbutrin which he gets every day since he has been taking it. Discussed behavioral activation and patient agreed to shower and get dressed. -patient looks like he is in alcohol withdrawal even though he denies it. Will schedule Ativan 1 mg t.i.d. for now to mitigate what is likely withdrawal 12/25 says little better with med increase; still wants ect; says not in any withdrawal -will proceed with ECT 12/26: Patient reports severe anxiety and depression. He has been sleeping well. He has been taking his medications. He attended 1 group so far. He denies SI/HI/AH/VH. Continue current treatment regimen. ECT scheduled tomorrow. 12/27 Talked about addiction to alcohol; patient was sober for 2 years during which time he to today a however he was still quite depressed despite being on medications. Patient initially ambivalent about his need for AA support agreed that it will be difficult for him to remain sober unless really engages in AA and outpatient treatment. Discussed ECT and patient denies any side effects and wants to continue; discussed medications and he agrees to increasing Latuda -says Topamax was for alcohol cravings which he said was helpful; agrees to have it held during ECT 12/28: Continue current management and treatment plan ECT. 12/29: continue current management and treatment plan. NPO post MN. 12/30/24: Patient slept for 8 hours, was medication compliant, denies side effects from medication. Review the medication list with him as he not remember what he has been taking. Patient denies side effects from ECT this his 2nd session. Denies headache, memory issues. He observe attended groups after ECT. Reports anxiety and depression a 11/28 which he reported has been much better compared to the past week.flat affect, but pleasant, and cooperative. Denies safety concerns. Denies hallucinations. 12/31 Patient noticeably brighter, attending groups. He says he starting to feel better as well. No troubles with ECT and wants to continue. -continue with ECT -will leave medication as current regimen 01/01 pt reports still depressed and still worried, but overall feels depression slowly improving; he has more energy, does not feel as shut down and more optimistic. Discussed medications, ECT and pt wants to continue and reassess after a few more ECT treatments. Discussed Partial day program post discharge and he agrees good idea. 01/02 remains slowly improving; continue ECT; family meeting next week. agrees improving. Pt agrees with partial day program 01/03 pt says depression little better still now 08/29. ECT well tolerated. Discussed Wellbutrin and pt says side-effect of b/l arm tremor really bothers him; he'll tolerate it if it's actually treating his depression. Discussed how Wellbutrin 300mg did nothing for him and so given improvement, pt agrees to drop Wellbutrin back down to 300mg and continue to taper until DC and see if mood remains improved without it; otherwise, will restart 01/04 Patient reports mood continues to be better and he is very grateful for having started ECT. Discussed continued bilateral arm tremor which seems to have been due to Wellbutrin. Patient agrees to continue tapering off and discontinuing Wellbutrin to see if depression returns and to see if shaking stops. 01/05 feeling better; discussed ECT and will continue; discussed Wellbutrin and he thinks tremor is less w/ reduced wellbutin dose and agrees to dc and see how it goes. Impression: pt starting to improve, but remains fragile and requires additional ECT treatments and continued improvement before can conclude treatment effect. Also, discontinuing Wellbutrin due to bothersome side effect and concern for lack of efficacy. If depression returns will conclude that increased Wellbutrin has been part of improvement in mood. 01/06 Patient continues to report doing well and depression much better; he remains at a 4/10. Does not notice the absence of Wellbutrin at all; currently bilateral hand tremors remain. Family meeting with patient's as well and it is agreed patient will continue with ECT this week and discharge home and then continue ECT as an outpatient. Patient agrees with partial day program as a step-down and also wants to re-engage with AA to help with sobriety. -continue with ECT; will monitor now that patient is off Wellbutrin. Will start to move patient to outpatient ECT 01/07 Doing better; seems that bilateral arm shakiness is a little less off Wellbutrin has only been 2 days now so will keep monitoring. Patient does not notice being off it at all. Again discussed ECT and patient will continue as an inpatient on Monday and then again on Monday. Patient agrees to than continue ECT as an outpatient. 8/20 pt remains doing better; ECT today without problems. Still has tremor but says it is less, about a 7/10, 10 being the worst. Patient continues to not miss Wellbutrin and agrees with continue treatment plan. Also discussed alcoholism and patient continues to plan on attending AA; discussed how he can talk about his struggles with his Of note, this Monday patient has no one at home to monitor him post ECT making Monday discharge problematic; it is in patient's best interest to remain on the unit Monday and then discharge Monday at which time he will have support. Plan: CV Q 15 minute checks ECT Mon, Mon, and Monday DC wellbutrin XL (not convinced that increase to 450mg is contributory; pt has been on 300 mg for 2 years with no benefit) Continue with Latuda 80mg daily (has been on 40 mg for 2 years) Continue Lexapro 20 mg daily Continue Naltrexone 50mg daily HOLD topomax 50mg while getting ECT Continue trazodone 100mg bedtime Past med trials: Not sure therapeutic duration and dose; Abilify Lamictal [place] Paxil Effexor Risperidone Patient educated on: diagnosis, medication risk/benefits, substance abuse and ECT Reason for continued inpatient stay Substantial Risk for: stable for discharge Time Spent With Patient Time: Total time managing care of this patient today ____ minutes.
[2025-01-09 08:00] VITALS: PULSE 67; RESP 16; TEMP 36.8; O2SAT 97
--- NOTE | 2025-01-09 09:55 | P.PNPSI_ITS ---
Subjective Subjective Date of Service: 01/09/25 Reason For Visit: depression Interim History: met with patient; discussed with team Patient reports his mood is good and that he is doing well. Ready to go home. Says that bilateral hand shakes have fully resolved with the discontinuation of Wellbutrin for which he is pleased. Patient will remain for ECT on Monday and then go home on Monday Mental Status Exam Mental Status Exam Narrative: Pt is alert and oriented; behavior is cooperative, friendly and calm, more social and engaged; patient is not in distress; dressed in casual attire, unkempt and scruffy but adequate hygiene; mood is described as good and affect brighter, more calm; eye contact appropriate; Speech is sparse but normal rate, volume and prosody and not pressured; much less retardation present; thought process is organized and goal directed; Thought content is on tx; otherwise pertinent to relevant topics and without any delusional content, paranoid ideations or grandiosity; denies any SI/HI. Denies AVH and there is no evidence of perceptual disturbance. Patients insight and judgment fair. Diagnostics Vital Signs (24Hr): Vital Signs - 24 hr 01/08/25 20:00 01/09/25 08:00 Temperature 98.8 F 98.3 F Pulse Rate 68 67 Respiratory Rate 16 Blood Pressure 124/77 Pulse Oximetry 94 97 Oxygen Delivery Method Room Air Room Air BMI result Body Mass Index 34.3 Labs 12/19/24 13:34 12/26/24 07:59 Medications Medications Current Medications Acetaminophen (Acetaminophen 325 Mg Tablet) 650 mg PO Q6H PRN PRN Reason: Headache/Pain, Scale 1-10 Al Hydroxide/Mg Hydroxide (Magnesium Hydrox/Alum Hydrox 30 Ml Oral.Susp) 30 ml PO Q6H PRN PRN Reason: Heartburn/Nausea Last Admin: 01/02/25 11:26 Dose: 30 ml Amlodipine Besylate (Amlodipine Besylate 10 Mg Tablet) 10 mg PO DAILY [facility]; Protocol Last Admin: 01/09/25 08:51 Dose: 10 mg Atorvastatin Calcium (Atorvastatin Calcium 80 Mg Tablet) 80 mg PO DAILY [facility] Last Admin: 01/09/25 08:51 Dose: 80 mg Ezetimibe (Ezetimibe 10 Mg Tablet) 10 mg PO DAILY [facility] Last Admin: 01/09/25 08:52 Dose: 10 mg Escitalopram Oxalate (Escitalopram Oxalate 20 Mg Tablet) 20 mg PO BEDTIME [facility] Last Admin: 01/08/25 21:50 Dose: 20 mg Fenofibrate (Fenofibrate 160 Mg Tablet) 160 mg PO DAILY [facility] Last Admin: 01/09/25 08:51 Dose: 160 mg Hydroxyzine HCl (Hydroxyzine Hcl 25 Mg Tablet) 25 mg PO Q6H PRN PRN Reason: mild anxiety Last Admin: 12/28/24 20:40 Dose: 25 mg Lurasidone HCl (Lurasidone Hcl 80 Mg Tablet) 80 mg PO DAILY@1700 [facility] Last Admin: 01/08/25 17:54 Dose: 80 mg Magnesium Hydroxide (Milk Of Magnesia 30 Ml Oral.Susp) 30 ml PO DAILY PRN PRN Reason: Constipation Naloxone HCl (Naloxone Hcl 0.4 Mg/Ml Vial) 0.04 mg IVPUSH Q5M PRN PRN Reason: Excessive sedation or RR < 8 Naltrexone HCl (Naltrexone Hcl 50 Mg Tablet) 50 mg PO DAILY [facility] Last Admin: 01/09/25 08:52 Dose: 50 mg Nicotine (Nicotine 21 Mg Patch.Td24) 21 mg TRANSDERMA DAILY PRN PRN Reason: smoking cessation Nicotine Polacrilex (Nicotine Polacrilex 2 Mg Gum) 4 mg BUCCAL Q2H PRN PRN Reason: Nicotine Cravings Omeprazole (Omeprazole 20 Mg Capsule.Dr) 20 mg PO BEDTIME [facility] Last Admin: 01/08/25 21:49 Dose: 20 mg Thiamine HCl (Thiamine Hcl 100 Mg Tablet) 100 mg PO DAILY [facility] Last Admin: 01/09/25 08:52 Dose: 100 mg Trazodone HCl (Trazodone Hcl 100 Mg Tablet) 100 mg PO BEDTIME [facility] Last Admin: 01/08/25 21:49 Dose: 100 mg Trazodone HCl (Trazodone Hcl 50 Mg Tablet) 50 mg PO BEDTIME MRX1 PRN PRN Reason: Insomnia Last Admin: 12/27/24 22:42 Dose: 50 mg Allergies Allergies Allergy/AdvReac Type Severity Reaction Status Date / Time No Known Allergies Allergy Verified 12/19/24 13:11 Assessment & Plan Assessment & Plan (1) Major depressive disorder, recurrent severe without psychotic features: Status: Acute Code(s): F33.2 - Major depressive disorder, recurrent severe without psychotic features (2) ANDREW (generalized anxiety disorder): Status: Acute Code(s): F41.1 - Generalized anxiety disorder (3) Alcohol use: Status: Acute Code(s): F10.90 - Alcohol use, unspecified, uncomplicated Plan HPI: 64 yo MWM with worsening depression - hx TRD and getting TMS here to start ECT for ongoing depressive sys not responding to treatment as usual - ongoing depression, hopeless/helpless feelings- no active si , last SA was 12 year ago when he [facility] while blacked out on alcohol. Also rates high anxiety- staying in bed 22 hrs/day- xs sleep, no energy- increased symptoms of depression such as sleeping 22 hours daily, not showering, not engaged; no SI Hx trying multiple antidepressants Reports decreased appetite, weight , energy , [place] severe , and feelings of guilt- Past Psychiatric History: denies prior psychiatric hospitalization last suicide attempt 12 years ago; . He has had 2 prior suicide attempts which he says I was blackout drunk . Hospital course: Patient reports depression/anxiety for years; Patient says lots of med trials, including TMS; Reports history therapy but not consistent restarted drinking 2 weeks ago after 2 years sober; says only 2 nips a day. Initially said he was not drinking at all but patient explains this because his was present and he did not want her to know he relapsed Discussed with patient ECT, risks/side effects and treatment plan; patient eager to embark. Also discussed medication management and he has been on Wellbutrin and Latuda current doses for 2 years and agrees to increase. 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 Denies any alcohol withdrawal and says that his hand shakes her due to Wellbutrin which he gets every day since he has been taking it. Discussed behavioral activation and patient agreed to shower and get dressed. -patient looks like he is in alcohol withdrawal even though he denies it. Will schedule Ativan 1 mg t.i.d. for now to mitigate what is likely withdrawal 12/25 says little better with med increase; still wants ect; says not in any withdrawal -will proceed with ECT 12/26: Patient reports severe anxiety and depression. He has been sleeping well. He has been taking his medications. He attended 1 group so far. He denies SI/HI/AH/VH. Continue current treatment regimen. ECT scheduled tomorrow. 12/27 Talked about addiction to alcohol; patient was sober for 2 years during which time he to today a however he was still quite depressed despite being on medications. Patient initially ambivalent about his need for AA support agreed that it will be difficult for him to remain sober unless really engages in AA and outpatient treatment. Discussed ECT and patient denies any side effects and wants to continue; discussed medications and he agrees to increasing Latuda -says Topamax was for alcohol cravings which he said was helpful; agrees to have it held during ECT 12/28: Continue current management and treatment plan ECT. 12/29: continue current management and treatment plan. NPO post MN. 12/30/24: Patient slept for 8 hours, was medication compliant, denies side effects from medication. Review the medication list with him as he not remember what he has been taking. Patient denies side effects from ECT this his 2nd session. Denies headache, memory issues. He observe attended groups after ECT. Reports anxiety and depression a 11/28 which he reported has been much better compared to the past week.flat affect, but pleasant, and cooperative. Denies safety concerns. Denies hallucinations. 12/31 Patient noticeably brighter, attending groups. He says he starting to feel better as well. No troubles with ECT and wants to continue. -continue with ECT -will leave medication as current regimen 01/01 pt reports still depressed and still worried, but overall feels depression slowly improving; he has more energy, does not feel as shut down and more optimistic. Discussed medications, ECT and pt wants to continue and reassess after a few more ECT treatments. Discussed Partial day program post discharge and he agrees good idea. 01/02 remains slowly improving; continue ECT; family meeting next week. agrees improving. Pt agrees with partial day program 01/03 pt says depression little better still now 08/29. ECT well tolerated. Discussed Wellbutrin and pt says side-effect of b/l arm tremor really bothers him; he'll tolerate it if it's actually treating his depression. Discussed how Wellbutrin 300mg did nothing for him and so given improvement, pt agrees to drop Wellbutrin back down to 300mg and continue to taper until DC and see if mood remains improved without it; otherwise, will restart 01/04 Patient reports mood continues to be better and he is very grateful for having started ECT. Discussed continued bilateral arm tremor which seems to have been due to Wellbutrin. Patient agrees to continue tapering off and discontinuing Wellbutrin to see if depression returns and to see if shaking stops. 01/05 feeling better; discussed ECT and will continue; discussed Wellbutrin and he thinks tremor is less w/ reduced wellbutin dose and agrees to dc and see how it goes. Impression: pt starting to improve, but remains fragile and requires additional ECT treatments and continued improvement before can conclude treatment effect. Also, discontinuing Wellbutrin due to bothersome side effect and concern for lack of efficacy. If depression returns will conclude that increased Wellbutrin has been part of improvement in mood. 01/06 Patient continues to report doing well and depression much better; he remains at a 4/10. Does not notice the absence of Wellbutrin at all; currently bilateral hand tremors remain. Family meeting with patient's as well and it is agreed patient will continue with ECT this week and discharge home and then continue ECT as an outpatient. Patient agrees with partial day program as a step-down and also wants to re-engage with AA to help with sobriety. -continue with ECT; will monitor now that patient is off Wellbutrin. Will start to move patient to outpatient ECT 01/07 Doing better; seems that bilateral arm shakiness is a little less off Wellbutrin has only been 2 days now so will keep monitoring. Patient does not notice being off it at all. Again discussed ECT and patient will continue as an inpatient on Monday and then again on Monday. Patient agrees to than continue ECT as an outpatient. 01/08 pt remains doing better; ECT today without problems. Still has tremor but says it is less, about a 7/10, 10 being the worst. Patient continues to not miss Wellbutrin and agrees with continue treatment plan. Also discussed alcoholism and patient continues to plan on attending AA; discussed how he can talk about his struggles with his Of note, this Monday patient has no one at home to monitor him post ECT making Monday discharge problematic; it is in patient's best interest to remain on the unit Monday and then discharge Monday at which time he will have support. 01/09 Patient reports his mood is good and that he is doing well. Ready to go home. Says that bilateral hand shakes have fully resolved with the discontinuation of Wellbutrin for which he is pleased. Patient will remain for ECT on Monday and then go home on Monday Patient is doing well, depression resolved with ECT; he will continue to get ECT as an outpatient for few more sessions. At that time he will discuss with providers whether not to continue with ECT as maintenance. Plan: CV Q 15 minute checks ECT Mon, Mon, and Monday DC wellbutrin XL (not convinced that increase to 450mg is contributory; pt has been on 300 mg for 2 years with no benefit) Continue with Latuda 80mg daily (has been on 40 mg for 2 years) Continue Lexapro 20 mg daily Continue Naltrexone 50mg daily HOLD topomax 50mg while getting ECT Continue trazodone 100mg bedtime Past med trials: Not sure therapeutic duration and dose; Abilify Lamictal [place] Paxil Effexor Risperidone Patient educated on: diagnosis, medication risk/benefits and ECT Informed Consent: understands Reason for continued inpatient stay Substantial Risk for: stable for discharge Time Spent With Patient Time: Total time managing care of this patient today ____ minutes.
[2025-01-09 14:27] VITALS: BMI 35.1
[2025-01-09 20:00] VITALS: BP 118/68; PULSE 75; TEMP 36.9; O2SAT 95
[2025-01-10] VITALS (10 sets, daily range): BP systolic 119–144; BP diastolic 64–88; PULSE 69–83; RESP 14–19; TEMP 36.2–36.9; O2SAT 95–98
--- NOTE | 2025-01-10 06:44 | P.CONAN_ITS ---
[facility] Active Problems Active Problems: All Active Problems Hypertriglyceridemia (Acute) Depression (Acute) Elevated LFTs (Acute) Alcohol use (Acute) Fatigue (Acute) ANDREW (generalized anxiety disorder) (Acute) Major depressive disorder, recurrent severe without psychotic features (Acute) Past Medical History Medical History Fatigue Family History Family history of problems with anesthesia: No Surgical History History of Problems with Anesthesia: No Social History Social History Household Members: Spouse Housing: House Do you presently have visiting nurse or other home services: No Alcohol intake: former Patient Tobacco Use Status: Never used Tobacco service: No Sexual orientation: Straight/Heterosexual Meds Allergies Allergy/AdvReac Type Severity Reaction Status Date / Time No Known Allergies Allergy Verified 12/19/24 13:11 Active Medications: Current Medications Acetaminophen (Acetaminophen 325 Mg Tablet) 650 mg PO Q6H PRN PRN Reason: Headache/Pain, Scale 1-10 Last Admin: 01/09/25 18:36 Dose: 650 mg Al Hydroxide/Mg Hydroxide (Magnesium Hydrox/Alum Hydrox 30 Ml Oral.Susp) 30 ml PO Q6H PRN PRN Reason: Heartburn/Nausea Last Admin: 01/02/25 11:26 Dose: 30 ml Amlodipine Besylate (Amlodipine Besylate 10 Mg Tablet) 10 mg PO DAILY [facility]; Protocol Last Admin: 01/09/25 08:51 Dose: 10 mg Atorvastatin Calcium (Atorvastatin Calcium 80 Mg Tablet) 80 mg PO DAILY [facility] Last Admin: 01/09/25 08:51 Dose: 80 mg Ezetimibe (Ezetimibe 10 Mg Tablet) 10 mg PO DAILY [facility] Last Admin: 01/09/25 08:52 Dose: 10 mg Escitalopram Oxalate (Escitalopram Oxalate 20 Mg Tablet) 20 mg PO BEDTIME [facility] Last Admin: 01/09/25 21:16 Dose: 20 mg Fenofibrate (Fenofibrate 160 Mg Tablet) 160 mg PO DAILY [facility] Last Admin: 01/09/25 08:51 Dose: 160 mg Hydroxyzine HCl (Hydroxyzine Hcl 25 Mg Tablet) 25 mg PO Q6H PRN PRN Reason: mild anxiety Last Admin: 12/28/24 20:40 Dose: 25 mg Lactated Ringer's (Lr) 1,000 mls @ 50 mls/hr IVCONT .Q20H [facility] Lurasidone HCl (Lurasidone Hcl 80 Mg Tablet) 80 mg PO DAILY@1700 [facility] Last Admin: 01/09/25 17:55 Dose: 80 mg Magnesium Hydroxide (Milk Of Magnesia 30 Ml Oral.Susp) 30 ml PO DAILY PRN PRN Reason: Constipation Naloxone HCl (Naloxone Hcl 0.4 Mg/Ml Vial) 0.04 mg IVPUSH Q5M PRN PRN Reason: Excessive sedation or RR < 8 Naltrexone HCl (Naltrexone Hcl 50 Mg Tablet) 50 mg PO DAILY [facility] Last Admin: 01/09/25 08:52 Dose: 50 mg Nicotine (Nicotine 21 Mg Patch.Td24) 21 mg TRANSDERMA DAILY PRN PRN Reason: smoking cessation Nicotine Polacrilex (Nicotine Polacrilex 2 Mg Gum) 4 mg BUCCAL Q2H PRN PRN Reason: Nicotine Cravings Omeprazole (Omeprazole 20 Mg Capsule.Dr) 20 mg PO BEDTIME [facility] Last Admin: 01/09/25 21:16 Dose: 20 mg Thiamine HCl (Thiamine Hcl 100 Mg Tablet) 100 mg PO DAILY [facility] Last Admin: 01/09/25 08:52 Dose: 100 mg Trazodone HCl (Trazodone Hcl 100 Mg Tablet) 100 mg PO BEDTIME [facility] Last Admin: 01/09/25 21:16 Dose: 100 mg Trazodone HCl (Trazodone Hcl 50 Mg Tablet) 50 mg PO BEDTIME MRX1 PRN PRN Reason: Insomnia Last Admin: 12/27/24 22:42 Dose: 50 mg Home Medications ?Medication ?Instructions ?Recorded ?Confirmed ?Last Taken ?Type amlodipine 10 mg tablet 10 mg PO DAILY 12/19/2411/21 Unknown History ezetimibe 10 mg tablet 10 mg PO DAILY 12/19/2411/21 Unknown History fenofibrate 160 mg tablet 160 mg PO DAILY 12/19/24 Unknown History omega-3 acid ethyl esters 1 gram 2 cap PO BID 12/19/24 12/19/24 Unknown History capsule rosuvastatin 20 mg tablet 20 mg PO DAILY 12/19/2411/21 Unknown History Exam Height,Weight and Vital Signs: Height 5 ft 8 in Weight 104.7 kg Last Vital Signs Temp 97.5 F 01/10/25 06:41 Pulse 70 01/10/25 06:41 Resp 14 01/10/25 06:41 BP 128/76 01/10/25 06:41 Pulse Ox 96 01/10/25 06:41 O2 Del Method Room Air 01/10/25 06:41 O2 Flow Rate 2 01/08/25 08:39 Pertinent Lab Results Pertinent Lab Results: Laboratory Tests 12/19/24 12/19/24 12/21/24 13:34 16:58 07:31 WBC 7.4 RBC 5.07 Hgb 16.1 Hct 44.1 MCV 87.0 MCH 31.8 MCHC 36.5 H RDW 13.3 Plt Count 212 MPV 8.9 L Immature Gran % (Auto) 0.9 H Neut % (Auto) 52.0 Lymph % (Auto) 36.7 [place] % (Auto) 8.3 Eos % (Auto) 1.4 Baso % (Auto) 0.7 Lymph # (Auto) 2.7 [place] # (Auto) 0.6 Eos # (Auto) 0.1 Baso # (Auto) 0.1 Abs Immat Gran (auto) 0.07 H Absolute Neuts (auto) 3.8 Absolute Nucleated RBC 0.000 Nucleated RBC % (auto) 0.0 Sodium 141 141 Potassium 3.5 3.9 Chloride 106 107 Carbon Dioxide 22 24 Anion Gap 17 14 BUN 11 10 Creatinine 0.92 0.98 Estim Creat Clear Calc 95.3 89.4 Estimated GFR > 60 > 60 POC Glucose Random Glucose 90 107 Estimat Average Glucose 88 Hemoglobin A1c % 4.7 Calcium 8.6 9.1 Magnesium 1.8 Total Bilirubin 0.9 1.2 H AST 206 H 122 H ALT 182 H 115 H Alkaline Phosphatase 109 95 Total Protein 7.0 6.5 Albumin 4.4 4.2 Triglycerides 217 H Cholesterol 141 LDL Cholesterol, Calc 53 HDL Cholesterol 45 TSH 1.59 2.23 Urine Color Dark Yellow Urine Appearance Clear Urine pH 6.5 Ur Specific [place] 1.020 Urine Protein Trace Urine Glucose (UA) Negative Urine Ketones Trace Urine Blood Negative Urine Nitrite Negative Ur Leukocyte Esterase Small (1+) H Urine RBC 0-2 Urine WBC 6-10 H Ur Squamous Epith Cells 3-5 Urine Bacteria None Seen Hyaline Casts 3-5 Salicylates < 5.0 L Urine Opiates Screen Not Detected Ur Buprenorphine Scrn Not Detected Ur Oxycodone Screen Not Detected Urine Methadone Screen Not Detected Urine Fentanyl Screen Not Detected Acetaminophen < 3 Ur Barbiturates Screen Not Detected Ur Phencyclidine Scrn Not Detected Ur Amphetamines Screen Not Detected U Benzodiazepines Scrn Not Detected Urine Cocaine Screen Not Detected U Marijuana (THC) Screen Not Detected Ethyl Alcohol 127 12/26/24 01/06/25 07:59 07:02 WBC RBC Hgb Hct MCV MCH MCHC RDW Plt Count MPV Immature Gran % (Auto) Neut % (Auto) Lymph % (Auto) [place] % (Auto) Eos % (Auto) Baso % (Auto) Lymph # (Auto) [place] # (Auto) Eos # (Auto) Baso # (Auto) Abs Immat Gran (auto) Absolute Neuts (auto) Absolute Nucleated RBC Nucleated RBC % (auto) Sodium Potassium Chloride Carbon Dioxide Anion Gap BUN Creatinine 1.06 Estim Creat Clear Calc 82.6 Estimated GFR > 60 POC Glucose 104 Random Glucose Estimat Average Glucose Hemoglobin A1c % Calcium Magnesium Total Bilirubin AST ALT Alkaline Phosphatase Total Protein Albumin Triglycerides Cholesterol LDL Cholesterol, Calc HDL Cholesterol TSH Urine Color Urine Appearance Urine pH Ur Specific [place] Urine Protein Urine Glucose (UA) Urine Ketones Urine Blood Urine Nitrite Ur Leukocyte Esterase Urine RBC Urine WBC Ur Squamous Epith Cells Urine Bacteria Hyaline Casts Salicylates Urine Opiates Screen Ur Buprenorphine Scrn Ur Oxycodone Screen Urine Methadone Screen Urine Fentanyl Screen Acetaminophen Ur Barbiturates Screen Ur Phencyclidine Scrn Ur Amphetamines Screen U Benzodiazepines Scrn Urine Cocaine Screen U Marijuana (THC) Screen Ethyl Alcohol Airway Mallampati Class: II TM Dist: >3cm Neck ROM: Full Heart: rrr Lungs: cta Assessment and Plan Assessment Anesthesia Assessment: Anesthesia Plan Discussed and Chart Reviewed Final Anesthetic Review Family History of Problems with Anesthesia: No History of Problems with Anesthesia: No NPO: Yes ASA Class: III Final Preanesthetic Review: No Changes in Pt Med Stat, Meds/Allgs Chart Reviewed and Consent Obtained/Reviewed Patient Risk: Intermediate Procedure Risk: Intermediate Anesthetic Plan Anesthetic Plan: GA Disposition: Standard PACU
--- NOTE | 2025-01-10 06:50 | MHC.SHP ---
Pre-Procedural Eval Section A - 24 Hr Update-Section A only Date of Service: 01/10/25 The patient is an INPATIENT: Yes Changes since office visit: Yes Patient answered all questions; No Cold of Flu in the past 2 weeks, No New Medical Problems and No Changes in Medication The patient has been examined within 24 hours of the surgical procedure. The History & Physical has been completed within 30 days and I have reviewed it.: Yes Section B - Complete if H&P > 30 days Chief Complaint: depression Allergies: Allergies Allergy/AdvReac Type Severity Reaction Status Date / Time No Known Allergies Allergy Verified 12/19/24 13:11 Plan Diagnosis/Plan: Unchanged I have reviewed the history and physical and performed a pertinent physical examination on my patient. No changes have occurred unless specified. Time Spent With Patient Time: Total time managing care of this patient today __35__ minutes.
[2025-01-10] MEDS: Lactated Ringers 1,000 ML 50 ML IVCONT (06:58)
--- NOTE | 2025-01-10 07:34 | HO.ECTPROC ---
ECT Procedure Note Diagnosis/Treatment Date of Service: 01/10/25 Diagnosis: Major Depressive Disorder Previous ECT Date: 01/08/25 Current Treatment Number: 6 Treatment: Series Interval Clinical Notes: continues to feel psychiatrically improved. medically stable, no changes. Time: Total time managing care of this patient today __35__ minutes. ECT Settings Device: THYMATRON DGx Electrode Placement: Right Unilateral Program/Pulse Width: 0.50 Energy Percent: 100 Seizure Duration By EEG (in seconds): 47 Medications Administration General Anesthetic: Etomidate (18) Muscle Relaxant: Succinylcholine (180) Ancillary Medications Cardiovascular Medications: Glycopyrrolate (3) Miscillaneous Medications: Midazolam (2) Airway Management Airway Management: LMA Treatment Recommendations No Changes Recommended: No change Notes: RTC saturday 01/13 Pt Tolerated Procedure w/o Issue: Yes
--- NOTE | 2025-01-10 17:38 | HO.PSYCHPN ---
Subjective Subjective Date of Service: 01/10/25 Reason For Visit: depression Subjective Notes: Conditional Voluntary Healthcare Proxy: No Guardianship: No Medical Problems Affecting Mental Status: No Interim History: Medical record and nursing notes reviewed; case discussed during rounds with team/nursing staff, and met with patient for supportive therapy/psychoeducation, as well as medication management. No issue with sleep or appetite, he is visible attempts in common area, denies SI/SIB/HI/AVH. Denies anxiety and depression. Reports ECT sessions have been helpful. Denies side effects from ECT, he is looking forward to going home with the family tomorrow. Reviewed [facility] appointment which is on January 28 at [facility]. He is aware the rn social services is working on psychiatric appointment. He is brighter, happier affect, no behavior issues. No safety concerns Review of Systems Review of Systems Constitutional: Denies fatigue and Denies fever(s) Cardiovascular: Denies chest pain and Denies dyspnea Respiratory: Denies dyspnea Gastrointestinal: Denies abdominal pain Psychiatric: denies suicidal ideation Endocrine: Denies fatigue Yes all other systems are reviewed and are negative Mental Status Exam Mental Status Exam Narrative: Pt is alert and oriented; behavior is cooperative, friendly and calm, more social and engaged; patient is not in distress; dressed in casual attire, unkempt and scruffy but adequate hygiene; mood is described as good and affect brighter, calm; eye contact appropriate; Speech is sparse but normal rate, volume and prosody and not pressured; much less retardation present; thought process is organized and goal directed; Thought content is on tx; otherwise pertinent to relevant topics and without any delusional content, paranoid ideations or grandiosity; denies any SI/HI. Denies AVH and there is no evidence of perceptual disturbance. Patients insight and judgment fair. Diagnostics Vital Signs (24Hr): Vital Signs - 24 hr 01/09/25 20:00 01/10/25 06:10 01/10/25 06:41 Temperature 98.4 F 97.9 F 97.5 F Pulse Rate 75 70 70 Respiratory Rate 18 14 Blood Pressure 118/68 121/66 128/76 Pulse Oximetry 95 98 96 Oxygen Delivery Method Room Air Room Air Room Air Oxygen Flow Rate 01/10/25 07:38 01/10/25 07:43 01/10/25 07:48 Temperature 97.7 F Pulse Rate 79 79 78 Respiratory Rate 16 16 19 Blood Pressure 138/85 144/83 H 144/83 H Pulse Oximetry 97 97 96 Oxygen Delivery Method Nasal Cannula with ETCO2 Nasal Cannula with ETCO2 Nasal Cannula with ETCO2 Oxygen Flow Rate 2 2 2 01/10/25 07:53 01/10/25 08:08 01/10/25 08:29 Temperature 97.2 F Pulse Rate 83 73 69 Respiratory Rate 17 17 16 Blood Pressure 131/88 143/74 H 139/86 Pulse Oximetry 96 96 96 Oxygen Delivery Method Nasal Cannula with ETCO2 Room Air Room Air Oxygen Flow Rate 2 01/10/25 08:37 Temperature 97.9 F Pulse Rate 71 Respiratory Rate 16 Blood Pressure 126/68 Pulse Oximetry 95 Oxygen Delivery Method Oxygen Flow Rate BMI result Body Mass Index 35.1 Labs 12/19/24 13:34 12/26/24 07:59 Medications Medications Current Medications Acetaminophen (Acetaminophen 325 Mg Tablet) 650 mg PO Q6H PRN PRN Reason: Headache/Pain, Scale 1-10 Last Admin: 01/09/25 18:36 Dose: 650 mg Al Hydroxide/Mg Hydroxide (Magnesium Hydrox/Alum Hydrox 30 Ml Oral.Susp) 30 ml PO Q6H PRN PRN Reason: Heartburn/Nausea Last Admin: 01/02/25 11:26 Dose: 30 ml Amlodipine Besylate (Amlodipine Besylate 10 Mg Tablet) 10 mg PO DAILY [facility]; Protocol Last Admin: 01/10/25 08:53 Dose: 10 mg Atorvastatin Calcium (Atorvastatin Calcium 80 Mg Tablet) 80 mg PO DAILY [facility] Last Admin: 01/10/25 08:53 Dose: 80 mg Ezetimibe (Ezetimibe 10 Mg Tablet) 10 mg PO DAILY [facility] Last Admin: 01/10/25 08:53 Dose: 10 mg Escitalopram Oxalate (Escitalopram Oxalate 20 Mg Tablet) 20 mg PO BEDTIME [facility] Last Admin: 01/09/25 21:16 Dose: 20 mg Fenofibrate (Fenofibrate 160 Mg Tablet) 160 mg PO DAILY [facility] Last Admin: 01/10/25 08:53 Dose: 160 mg Hydroxyzine HCl (Hydroxyzine Hcl 25 Mg Tablet) 25 mg PO Q6H PRN PRN Reason: mild anxiety Last Admin: 12/28/24 20:40 Dose: 25 mg Lurasidone HCl (Lurasidone Hcl 80 Mg Tablet) 80 mg PO DAILY@1700 [facility] Last Admin: 01/10/25 16:19 Dose: 80 mg Magnesium Hydroxide (Milk Of Magnesia 30 Ml Oral.Susp) 30 ml PO DAILY PRN PRN Reason: Constipation Naltrexone HCl (Naltrexone Hcl 50 Mg Tablet) 50 mg PO DAILY [facility] Last Admin: 01/10/25 08:53 Dose: 50 mg Nicotine (Nicotine 21 Mg Patch.Td24) 21 mg TRANSDERMA DAILY PRN PRN Reason: smoking cessation Nicotine Polacrilex (Nicotine Polacrilex 2 Mg Gum) 4 mg BUCCAL Q2H PRN PRN Reason: Nicotine Cravings Omeprazole (Omeprazole 20 Mg Capsule.Dr) 20 mg PO BEDTIME [facility] Last Admin: 01/09/25 21:16 Dose: 20 mg Thiamine HCl (Thiamine Hcl 100 Mg Tablet) 100 mg PO DAILY [facility] Last Admin: 01/10/25 08:53 Dose: 100 mg Trazodone HCl (Trazodone Hcl 100 Mg Tablet) 100 mg PO BEDTIME [facility] Last Admin: 01/09/25 21:16 Dose: 100 mg Trazodone HCl (Trazodone Hcl 50 Mg Tablet) 50 mg PO BEDTIME MRX1 PRN PRN Reason: Insomnia Last Admin: 12/27/24 22:42 Dose: 50 mg Allergies Allergies Allergy/AdvReac Type Severity Reaction Status Date / Time No Known Allergies Allergy Verified 12/19/24 13:11 Assessment & Plan Assessment & Plan (1) Major depressive disorder, recurrent severe without psychotic features: Status: Acute Code(s): F33.2 - Major depressive disorder, recurrent severe without psychotic features (2) ANDREW (generalized anxiety disorder): Status: Acute Code(s): F41.1 - Generalized anxiety disorder (3) Alcohol use: Status: Acute Code(s): F10.90 - Alcohol use, unspecified, uncomplicated Plan HPI: 64 yo MWM with worsening depression - hx TRD and getting TMS here to start ECT for ongoing depressive sys not responding to treatment as usual - ongoing depression, hopeless/helpless feelings- no active si , last SA was 12 year ago when he [employer] while blacked out on alcohol. Also rates high anxiety- staying in bed 22 hrs/day- xs sleep, no energy- increased symptoms of depression such as sleeping 22 hours daily, not showering, not engaged; no SI Hx trying multiple antidepressants Reports decreased appetite, weight , energy , [place] severe , and feelings of guilt- Past Psychiatric History: denies prior psychiatric hospitalization last suicide attempt 12 years ago; . He has had 2 prior suicide attempts which he says I was blackout drunk . Hospital course: Patient reports depression/anxiety for years; Patient says lots of med trials, including TMS; Reports history therapy but not consistent restarted drinking 2 weeks ago after 2 years sober; says only 2 nips a day. Initially said he was not drinking at all but patient explains this because his was present and he did not want her to know he relapsed Discussed with patient ECT, risks/side effects and treatment plan; patient eager to embark. Also discussed medication management and he has been on Wellbutrin and Latuda current doses for 2 years and agrees to increase. Discussed behavioral activation and patient says he will engage 12/24 Review of chart shows that patient's BAL was >200 and given his size, not possible that he was only drinking 2 nips a day; show card writer presented this to patient who confirmed that he was drinking closer to 5 drinks a day. Denies any alcohol withdrawal and says that his hand shakes her due to Wellbutrin which he gets every day since he has been taking it. Discussed behavioral activation and patient agreed to shower and get dressed. -patient looks like he is in alcohol withdrawal even though he denies it. Will schedule Ativan 1 mg t.i.d. for now to mitigate what is likely withdrawal 12/25 says little better with med increase; still wants ect; says not in any withdrawal -will proceed with ECT 12/26: Patient reports severe anxiety and depression. He has been sleeping well. He has been taking his medications. He attended 1 group so far. He denies SI/HI/AH/VH. Continue current treatment regimen. ECT scheduled tomorrow. 12/27 Talked about addiction to alcohol; patient was sober for 2 years during which time he to today a however he was still quite depressed despite being on medications. Patient initially ambivalent about his need for AA support agreed that it will be difficult for him to remain sober unless really engages in AA and outpatient treatment. Discussed ECT and patient denies any side effects and wants to continue; discussed medications and he agrees to increasing Latuda -says Topamax was for alcohol cravings which he said was helpful; agrees to have it held during ECT 12/28: Continue current management and treatment plan ECT. 12/29: continue current management and treatment plan. NPO post MN. 12/30/24: Patient slept for 8 hours, was medication compliant, denies side effects from medication. Review the medication list with him as he not remember what he has been taking. Patient denies side effects from ECT this his 2nd session. Denies headache, memory issues. He observe attended groups after ECT. Reports anxiety and depression a 11/28 which he reported has been much better compared to the past week.flat affect, but pleasant, and cooperative. Denies safety concerns. Denies hallucinations. 12/31 Patient noticeably brighter, attending groups. He says he starting to feel better as well. No troubles with ECT and wants to continue. -continue with ECT -will leave medication as current regimen 01/01 pt reports still depressed and still worried, but overall feels depression slowly improving; he has more energy, does not feel as shut down and more optimistic. Discussed medications, ECT and pt wants to continue and reassess after a few more ECT treatments. Discussed Partial day program post discharge and he agrees good idea. 01/02 remains slowly improving; continue ECT; family meeting next week. agrees improving. Pt agrees with partial day program 01/03 pt says depression little better still now 08/29. ECT well tolerated. Discussed Wellbutrin and pt says side-effect of b/l arm tremor really bothers him; he'll tolerate it if it's actually treating his depression. Discussed how Wellbutrin 300mg did nothing for him and so given improvement, pt agrees to drop Wellbutrin back down to 300mg and continue to taper until DC and see if mood remains improved without it; otherwise, will restart 01/04 Patient reports mood continues to be better and he is very grateful for having started ECT. Discussed continued bilateral arm tremor which seems to have been due to Wellbutrin. Patient agrees to continue tapering off and discontinuing Wellbutrin to see if depression returns and to see if shaking stops. 01/05 feeling better; discussed ECT and will continue; discussed Wellbutrin and he thinks tremor is less w/ reduced wellbutin dose and agrees to dc and see how it goes. Impression: pt starting to improve, but remains fragile and requires additional ECT treatments and continued improvement before can conclude treatment effect. Also, discontinuing Wellbutrin due to bothersome side effect and concern for lack of efficacy. If depression returns will conclude that increased Wellbutrin has been part of improvement in mood. 01/06 Patient continues to report doing well and depression much better; he remains at a 4/10. Does not notice the absence of Wellbutrin at all; currently bilateral hand tremors remain. Family meeting with patient's as well and it is agreed patient will continue with ECT this week and discharge home and then continue ECT as an outpatient. Patient agrees with partial day program as a step-down and also wants to re-engage with AA to help with sobriety. -continue with ECT; will monitor now that patient is off Wellbutrin. Will start to move patient to outpatient ECT 01/07 Doing better; seems that bilateral arm shakiness is a little less off Wellbutrin has only been 2 days now so will keep monitoring. Patient does not notice being off it at all. Again discussed ECT and patient will continue as an inpatient on Monday and then again on Monday. Patient agrees to than continue ECT as an outpatient. 01/08 pt remains doing better; ECT today without problems. Still has tremor but says it is less, about a 7/10, 10 being the worst. Patient continues to not miss Wellbutrin and agrees with continue treatment plan. Also discussed alcoholism and patient continues to plan on attending AA; discussed how he can talk about his struggles with his Of note, this Monday patient has no one at home to monitor him post ECT making Monday discharge problematic; it is in patient's best interest to remain on the unit Monday and then discharge Monday at which time he will have support. 01/09 Patient reports his mood is good and that he is doing well. Ready to go home. Says that bilateral hand shakes have fully resolved with the discontinuation of Wellbutrin for which he is pleased. Patient will remain for ECT on Monday and then go home on Monday Patient is doing well, depression resolved with ECT; he will continue to get ECT as an outpatient for few more sessions. At that time he will discuss with providers whether not to continue with ECT as maintenance. 01/10/25: No issue with sleep or appetite, he is visible attempts in common area, denies SI/SIB/HI/AVH. Denies anxiety and depression. Reports ECT sessions have been helpful. Denies side effects from ECT, he is looking forward to going home with the family tomorrow. Mood and sleep have been improved. Reviewed PHP appointment which is on January 28 at [facility]. He is aware the rn social services is working on psychiatric appointment. He is brighter, happier affect, no behavior issues. No safety concerns. He also will go home with ECT maintenance. Plan: CV Q 15 minute checks ECT Mon, Mon, and Monday DC wellbutrin XL (not convinced that increase to 450mg is contributory; pt has been on 300 mg for 2 years with no benefit) Continue with Latuda 80mg daily (has been on 40 mg for 2 years) Continue Lexapro 20 mg daily Continue Naltrexone 50mg daily HOLD topomax 50mg while getting ECT Continue trazodone 100mg bedtime Past med trials: Not sure therapeutic duration and dose; Abilify Lamictal [place] Paxil Effexor Risperidone Patient educated on: diagnosis, medication risk/benefits, substance abuse and therapeutic strategies Informed Consent: understands Reason for continued inpatient stay Substantial Risk for: med/psych decompensation Time Spent With Patient Time: Total time managing care of this patient today ____ minutes.
[2025-01-11 08:29] VITALS: BP 133/77; PULSE 65; TEMP 36.9; O2SAT 98
--- NOTE | 2025-01-11 10:42 | HO.PSYCHPN ---
Subjective Subjective Reason For Visit: depression Diagnostics Vital Signs (24Hr): Vital Signs - 24 hr 01/10/25 20:00 01/11/25 08:29 Temperature 98.4 F 98.4 F Pulse Rate 70 65 Respiratory Rate 16 Blood Pressure 119/64 133/77 Pulse Oximetry 96 98 Oxygen Delivery Method Room Air Room Air BMI result Body Mass Index 35.1 Labs 12/19/24 13:34 12/26/24 07:59 Medications Medications Current Medications Acetaminophen (Acetaminophen 325 Mg Tablet) 650 mg PO Q6H PRN PRN Reason: Headache/Pain, Scale 1-10 Last Admin: 01/09/25 18:36 Dose: 650 mg Al Hydroxide/Mg Hydroxide (Magnesium Hydrox/Alum Hydrox 30 Ml Oral.Susp) 30 ml PO Q6H PRN PRN Reason: Heartburn/Nausea Last Admin: 01/02/25 11:26 Dose: 30 ml Amlodipine Besylate (Amlodipine Besylate 10 Mg Tablet) 10 mg PO DAILY [facility]; Protocol Last Admin: 01/11/25 08:46 Dose: 10 mg Atorvastatin Calcium (Atorvastatin Calcium 80 Mg Tablet) 80 mg PO DAILY [facility] Last Admin: 01/11/25 08:46 Dose: 80 mg Ezetimibe (Ezetimibe 10 Mg Tablet) 10 mg PO DAILY [facility] Last Admin: 01/11/25 08:46 Dose: 10 mg Escitalopram Oxalate (Escitalopram Oxalate 20 Mg Tablet) 20 mg PO BEDTIME [facility] Last Admin: 01/10/25 21:38 Dose: 20 mg Fenofibrate (Fenofibrate 160 Mg Tablet) 160 mg PO DAILY [facility] Last Admin: 01/11/25 08:46 Dose: 160 mg Hydroxyzine HCl (Hydroxyzine Hcl 25 Mg Tablet) 25 mg PO Q6H PRN PRN Reason: mild anxiety Last Admin: 12/28/24 20:40 Dose: 25 mg Lurasidone HCl (Lurasidone Hcl 80 Mg Tablet) 80 mg PO DAILY@1700 [facility] Last Admin: 01/10/25 16:19 Dose: 80 mg Magnesium Hydroxide (Milk Of Magnesia 30 Ml Oral.Susp) 30 ml PO DAILY PRN PRN Reason: Constipation Naltrexone HCl (Naltrexone Hcl 50 Mg Tablet) 50 mg PO DAILY [facility] Last Admin: 01/11/25 08:46 Dose: 50 mg Nicotine (Nicotine 21 Mg Patch.Td24) 21 mg TRANSDERMA DAILY PRN PRN Reason: smoking cessation Nicotine Polacrilex (Nicotine Polacrilex 2 Mg Gum) 4 mg BUCCAL Q2H PRN PRN Reason: Nicotine Cravings Omeprazole (Omeprazole 20 Mg Capsule.Dr) 20 mg PO BEDTIME PAYAM Last Admin: 01/10/25 21:37 Dose: 20 mg Thiamine HCl (Thiamine Hcl 100 Mg Tablet) 100 mg PO DAILY [facility] Last Admin: 01/11/25 08:46 Dose: 100 mg Trazodone HCl (Trazodone Hcl 100 Mg Tablet) 100 mg PO BEDTIME PAYAM Last Admin: 01/10/25 21:37 Dose: 100 mg Trazodone HCl (Trazodone Hcl 50 Mg Tablet) 50 mg PO BEDTIME MRX1 PRN PRN Reason: Insomnia Last Admin: 12/27/24 22:42 Dose: 50 mg Allergies Allergies Allergy/AdvReac Type Severity Reaction Status Date / Time No Known Allergies Allergy Verified 12/19/24 13:11 Assessment & Plan Assessment & Plan (1) Major depressive disorder, recurrent severe without psychotic features: Status: Acute Code(s): F33.2 - Major depressive disorder, recurrent severe without psychotic features (2) ANDREW (generalized anxiety disorder): Status: Acute Code(s): F41.1 - Generalized anxiety disorder (3) Alcohol use: Status: Acute Code(s): F10.90 - Alcohol use, unspecified, uncomplicated Plan HPI: 64 yo MWM with worsening depression - hx TRD and getting TMS here to start ECT for ongoing depressive sys not responding to treatment as usual - ongoing depression, hopeless/helpless feelings- no active si , last SA was 12 year ago when he [employer] while blacked out on alcohol. Also rates high anxiety- staying in bed 22 hrs/day- xs sleep, no energy- increased symptoms of depression such as sleeping 22 hours daily, not showering, not engaged; no SI Hx trying multiple antidepressants Reports decreased appetite, weight , energy , [place] severe , and feelings of guilt- Past Psychiatric History: denies prior psychiatric hospitalization last suicide attempt 12 years ago; . He has had 2 prior suicide attempts which he says I was blackout drunk . Hospital course: Patient reports depression/anxiety for years; Patient says lots of med trials, including TMS; Reports history therapy but not consistent restarted drinking 2 weeks ago after 2 years sober; says only 2 nips a day. Initially said he was not drinking at all but patient explains this because his was present and he did not want her to know he relapsed Discussed with patient ECT, risks/side effects and treatment plan; patient eager to embark. Also discussed medication management and he has been on Wellbutrin and Latuda current doses for 2 years and agrees to increase. Discussed behavioral activation and patient says he will engage 12/24 Review of chart shows that patient's BAL was >200 and given his size, not possible that he was only drinking 2 nips a day; film writer presented this to patient who confirmed that he was drinking closer to 5 drinks a day. Denies any alcohol withdrawal and says that his hand shakes her due to Wellbutrin which he gets every day since he has been taking it. Discussed behavioral activation and patient agreed to shower and get dressed. -patient looks like he is in alcohol withdrawal even though he denies it. Will schedule Ativan 1 mg t.i.d. for now to mitigate what is likely withdrawal 12/25 says little better with med increase; still wants ect; says not in any withdrawal -will proceed with ECT 12/26: Patient reports severe anxiety and depression. He has been sleeping well. He has been taking his medications. He attended 1 group so far. He denies SI/HI/AH/VH. Continue current treatment regimen. ECT scheduled tomorrow. 12/27 Talked about addiction to alcohol; patient was sober for 2 years during which time he to today a however he was still quite depressed despite being on medications. Patient initially ambivalent about his need for AA support agreed that it will be difficult for him to remain sober unless really engages in AA and outpatient treatment. Discussed ECT and patient denies any side effects and wants to continue; discussed medications and he agrees to increasing Latuda -says Topamax was for alcohol cravings which he said was helpful; agrees to have it held during ECT 12/28: Continue current management and treatment plan ECT. 12/29: continue current management and treatment plan. NPO post MN. 12/30/24: Patient slept for 8 hours, was medication compliant, denies side effects from medication. Review the medication list with him as he not remember what he has been taking. Patient denies side effects from ECT this his 2nd session. Denies headache, memory issues. He observe attended groups after ECT. Reports anxiety and depression a 11/28 which he reported has been much better compared to the past week.flat affect, but pleasant, and cooperative. Denies safety concerns. Denies hallucinations. 12/31 Patient noticeably brighter, attending groups. He says he starting to feel better as well. No troubles with ECT and wants to continue. -continue with ECT -will leave medication as current regimen 01/01 pt reports still depressed and still worried, but overall feels depression slowly improving; he has more energy, does not feel as shut down and more optimistic. Discussed medications, ECT and pt wants to continue and reassess after a few more ECT treatments. Discussed Partial day program post discharge and he agrees good idea. 01/02 remains slowly improving; continue ECT; family meeting next week. agrees improving. Pt agrees with partial day program 01/03 pt says depression little better still now /10. ECT well tolerated. Discussed Wellbutrin and pt says side-effect of b/l arm tremor really bothers him; he'll tolerate it if it's actually treating his depression. Discussed how Wellbutrin 300mg did nothing for him and so given improvement, pt agrees to drop Wellbutrin back down to 300mg and continue to taper until DC and see if mood remains improved without it; otherwise, will restart 01/04 Patient reports mood continues to be better and he is very grateful for having started ECT. Discussed continued bilateral arm tremor which seems to have been due to Wellbutrin. Patient agrees to continue tapering off and discontinuing Wellbutrin to see if depression returns and to see if shaking stops. 01/05 feeling better; discussed ECT and will continue; discussed Wellbutrin and he thinks tremor is less w/ reduced wellbutin dose and agrees to dc and see how it goes. Impression: pt starting to improve, but remains fragile and requires additional ECT treatments and continued improvement before can conclude treatment effect. Also, discontinuing Wellbutrin due to bothersome side effect and concern for lack of efficacy. If depression returns will conclude that increased Wellbutrin has been part of improvement in mood. 01/06 Patient continues to report doing well and depression much better; he remains at a 4/10. Does not notice the absence of Wellbutrin at all; currently bilateral hand tremors remain. Family meeting with patient's as well and it is agreed patient will continue with ECT this week and discharge home and then continue ECT as an outpatient. Patient agrees with partial day program as a step-down and also wants to re-engage with AA to help with sobriety. -continue with ECT; will monitor now that patient is off Wellbutrin. Will start to move patient to outpatient ECT 01/07 Doing better; seems that bilateral arm shakiness is a little less off Wellbutrin has only been 2 days now so will keep monitoring. Patient does not notice being off it at all. Again discussed ECT and patient will continue as an inpatient on Monday and then again on Monday. Patient agrees to than continue ECT as an outpatient. 01/08 pt remains doing better; ECT today without problems. Still has tremor but says it is less, about a 7/10, 10 being the worst. Patient continues to not miss Wellbutrin and agrees with continue treatment plan. Also discussed alcoholism and patient continues to plan on attending AA; discussed how he can talk about his struggles with his Of note, this Monday patient has no one at home to monitor him post ECT making Monday discharge problematic; it is in patient's best interest to remain on the unit Monday and then discharge Monday at which time he will have support. 01/09 Patient reports his mood is good and that he is doing well. Ready to go home. Says that bilateral hand shakes have fully resolved with the discontinuation of Wellbutrin for which he is pleased. Patient will remain for ECT on Monday and then go home on Monday Patient is doing well, depression resolved with ECT; he will continue to get ECT as an outpatient for few more sessions. At that time he will discuss with providers whether not to continue with ECT as maintenance. 01/10/25: No issue with sleep or appetite, he is visible attempts in common area, denies SI/SIB/HI/AVH. Denies anxiety and depression. Reports ECT sessions have been helpful. Denies side effects from ECT, he is looking forward to going home with the family tomorrow. Mood and sleep have been improved. Reviewed PHP appointment which is on January 28 at [facility]. He is aware the social media developer is working on psychiatric appointment. He is brighter, happier affect, no behavior issues. No safety concerns. He also will go home with ECT maintenance. Plan: CV Q 15 minute checks ECT Mon, Mon, and Monday DC wellbutrin XL (not convinced that increase to 450mg is contributory; pt has been on 300 mg for 2 years with no benefit) Continue with Latuda 80mg daily (has been on 40 mg for 2 years) Continue Lexapro 20 mg daily Continue Naltrexone 50mg daily HOLD topomax 50mg while getting ECT Continue trazodone 100mg bedtime Past med trials: Not sure therapeutic duration and dose; Abilify Lamictal Tropic Paxil Effexor Risperidone Time Spent With Patient Time: Total time managing care of this patient today ____ minutes.
--- NOTE | 2025-01-13 08:55 | PM.PSYDC ---
DS: Providers Provider Date of Service: 01/13/25 Date of admission: 12/20/24 14:43 Date of discharge: 01/13/25 Primary care physician: Deena Rojo NP Attending physician on admission: Milton Jacob Consults: 12/20/24 17:52 Addiction Medicine Provider Routine Consulting Provider: Addiction Covering Reason for consultation: LIS, has tried naltrexone in the past 12/23/24 10:00 Consult to Hospitalist Routine Comment: [place] [facility] Reason For Exam: assess for ECT 01/02/25 10:46 Consult to Comprehensive Care Routine Consulting Provider[place] [facility] Discharging clinician: Amber Shipley DS: Diagnosis Discharge Diagnosis (1) Major depressive disorder, recurrent severe without psychotic features: Status: Acute (2) ANDREW (generalized anxiety disorder): Status: Acute (3) Alcohol use: Status: Acute DS: Medications Discharge Medications Home Medications: Home Medications ?Medication ?Instructions ?Recorded ?Confirmed amlodipine 10 mg tablet 10 mg PO DAILY 12/19/24 12/19/24 ezetimibe 10 mg tablet 10 mg PO DAILY 12/19/24 12/19/24 fenofibrate 160 mg tablet 160 mg PO DAILY 12/19/24 12/19/24 omega-3 acid ethyl esters 1 gram 2 cap PO BID 12/19/24 12/19/24 capsule rosuvastatin 20 mg tablet 20 mg PO DAILY 12/19/24 12/19/24 Previous Rx's ?Medication ?Instructions ?Recorded escitalopram oxalate 20 mg tablet 20 mg PO BEDTIME 30 days #30 tabs 01/09/25 lurasidone 40 mg tablet 80 mg (2 x 40 mg) PO DAILY@1700 30 01/09/25 days #60 tabs naltrexone 50 mg tablet 50 mg PO DAILY 30 days #30 tabs 01/09/25 omeprazole 20 mg capsule,delayed 20 mg PO BEDTIME 30 days #30 caps 01/09/25 release trazodone 100 mg tablet 100 mg PO BEDTIME PRN insomnia 30 01/09/25 days #30 tabs Mental Status Exam Mental Status Exam Narrative: Pt is alert and oriented; behavior is cooperative, friendly and calm; patient is not in distress; dressed in casual attire with adequate hygiene and grooming; mood is described as good and affect congruent; eye contact appropriate; Speech is normal rate, volume and prosody and not pressured; no psychomotor agitation/retardation present; thought process is organized and goal directed; Thought content is on tx; otherwise pertinent to relevant topics and without any delusional content, paranoid ideations or grandiosity; denies any SI/HI. Denies AVH and there is no evidence of perceptual disturbance. Patients insight and judgment are r intact. Data Data Completed and Pending Completed studies during hospitalization [Text1]: 12/19/24 17:31 Urine clean catch - Clean Catch Midstream Urine Culture - Final DS: Summary Hospital Course Hospital Course: HPI: 64 yo MWM with worsening depression - hx TRD and getting TMS here to start ECT for ongoing depressive sys not responding to treatment as usual - ongoing depression, hopeless/helpless feelings- no active si , last SA was 12 year ago when he [employer] while blacked out on alcohol. Also rates high anxiety- staying in bed 22 hrs/day- xs sleep, no energy- increased symptoms of depression such as sleeping 22 hours daily, not showering, not engaged; no SI Hx trying multiple antidepressants Reports decreased appetite, weight , energy , [place] severe , and feelings of guilt- Past Psychiatric History: denies prior psychiatric hospitalization last suicide attempt 12 years ago; . He has had 2 prior suicide attempts which he says I was blackout drunk . Hospital course: Patient reports depression/anxiety for years; Patient says lots of med trials, including TMS; Reports history therapy but not consistent restarted drinking 2 weeks ago after 2 years sober; says only 2 nips a day. Initially said he was not drinking at all but patient explains this because his was present and he did not want her to know he relapsed Discussed with patient ECT, risks/side effects and treatment plan; patient eager to embark. Also discussed medication management and he has been on Wellbutrin and Latuda current doses for 2 years and agrees to increase. Discussed behavioral activation and patient says he will engage 8/5 Review of chart shows that patient's BAL was >200 and given his size, not possible that he was only drinking 2 nips a day; securities underwriter presented this to patient who confirmed that he was drinking closer to 5 drinks a day. Denies any alcohol withdrawal and says that his hand shakes her due to Wellbutrin which he gets every day since he has been taking it. Discussed behavioral activation and patient agreed to shower and get dressed. -patient looks like he is in alcohol withdrawal even though he denies it. Will schedule Ativan 1 mg t.i.d. for now to mitigate what is likely withdrawal 12/25 says little better with med increase; still wants ect; says not in any withdrawal -will proceed with ECT -Talked about addiction to alcohol; patient was sober for 2 years during which time he to today a however he was still quite depressed despite being on medications. -Patient initially ambivalent about his need for AA support agreed that it will be difficult for him to remain sober unless really engages in AA and outpatient treatment. -says Topamax was for alcohol cravings which he said was helpful; will dc for now while undergoing ECT Patient started ECT treatments during which time Patient's Latuda was increased to 80 mg; his Wellbutrin XL was increased to 450 mg. With ECT, patient's mood very soon improved, even after 3 treatments. Patient's mood in continue to improve with noticeably brighter affect. Patient started attending groups, was out in the milieu interacting with others and felt a reprieve from depression that he had not felt in a decade. He continue getting ECT treatments without any negative side effects. Patient's hands continued to shake and so Wellbutrin was tapered and after few days of it being discontinued, bilateral hand/arm shakes resolved and patient remained in good mood, despite its discontinuation. Patient remained with much improved depression which he said was about a 4/10 (10/10 on admission). He was hopeful, optimistic and future oriented; he plan to return to and reconnect with his sponsor. Patient's agreed that this was the best she seen him in quite a long time. Patient felt ready for discharge and to continue ECT treatments as an outpatient. Patient was eating and sleeping well. He remained in good mood, good behavioral and impulse control and engaged in treatment; patient signed up for partial day program post discharge starting January 28 at [facility]. . Patient of course remains at risk for relapse however this is a chronic struggle for him which he has been fighting for years while simultaneously dealing with untreated, refractory depression; patient is now in much better position to continue to pursue sobriety. Patient was not in imminent risk for harm to self or others, appropriate to return to the community for treatment and his request for discharge honored. Medication: DC wellbutrin XL (no benefit; caused tremor) Increased Latuda 80mg daily Continued Lexapro 20 mg daily Continue Naltrexone 50mg daily HOLD topomax 50mg while getting ECT (for etoh cravings) Continued trazodone 100mg bedtime Past med trials: Not sure therapeutic duration and dose; Abilify Lamictal [place] Paxil Effexor Risperidone Status at Discharge Functional status at discharge: independent ambulation Overall status at discharge: patient is back to baseline Time Spent with Patient Time attestation: Total time managing care of this patient today ____ minutes. Time spent: Less than 30 minutes Discharge Plan Discharge Anticipated Discharge Date/Time: 01/11/25 11:00 Patient Disposition: Home, Self-Care Discharge Diagnosis: MDD, recurrent, severe w/out psychosis in (near) full remission Referrals: [facility] Partial Hospitalization Program [Other] - 01/28/25 8:00 am Referral Note: Psychiatric hospital is a red [employer]ick building behind the [employer] red trailer in parking lot C. This will be your intake appointment, please plan to being the following day. You will be called if there is a cancellation and if there is an earlier opening. Social work is recommending a kids activities coach referral for [facility] [facility] ([facility] [facility] [place] - 01/13/25 6:00 am Referral Note: Please go to short stay surgery on the second floor. Soila Marcialfreddie will be your primary contact for scheduling; her number is listed above. [place]convulsive [place] ([place]) [place] [facility] [place] - 01/15/25 6:00 am Referral Note: Please go to short stay surgery on the second floor. Soila Mere will be your primary contact for scheduling; her number is listed above. [facility]ry with Josh Bueno [Other] - 02/10/25 12:00 pm Referral Note: Telehealth [facility] Intake [Other] - 1 Week Referral Note: [facility] will follow up with the appointment for the intake. If you don't hear from them within 3-5 days please call them for the intake appointment. Deena Rojo NP [Primary Care Provider, Internal Medicine] - 01/24/25 1:20 pm Discharge Medications: New omeprazole 20 mg Capsule,Delayed Release(Dr/Ec) 20 mg PO BEDTIME 30 Days Qty: 30 0RF Continued amlodipine 10 mg tablet 10 mg PO DAILY fenofibrate 160 mg tablet 160 mg PO DAILY ezetimibe 10 mg tablet 10 mg PO DAILY rosuvastatin 20 mg tablet 20 mg PO DAILY omega-3 acid ethyl esters 1 gram capsule 2 cap PO BID naltrexone 50 mg tablet 50 mg PO DAILY 30 Days Qty: 30 0RF escitalopram oxalate 20 mg tablet 20 mg PO BEDTIME 30 Days Qty: 30 0RF Changed trazodone 100 mg tablet 100 mg PO BEDTIME PRN (Reason: insomnia) 30 Days Qty: 30 0RF lurasidone 40 mg tablet 80 mg PO DAILY@1700 30 Days Qty: 60 0RF Discontinued metformin 500 mg tablet extended release 24 hr 500 mg PO DAILY bupropion HCl 300 mg tablet extended release 24 hr 300 mg PO QAM topiramate 50 mg tablet 50 mg PO BEDTIME Discharge Orders: Discharge Order (Routine); Ordered 01/11/25 Ordered By: Milton Jacob Diet: Regular diet Activity on Discharge: As tolerated Stand Alone Forms: Patient Portal Discharge page, Community Support Print Language: Serbian Care Plan Goals: Maintain mood and safe behaviors Take medications as prescribed Continue to pursue sobriety Practice coping skills Continue with outpatient providers and reach out to them as needed Health Concerns: Mood stability and behaviors Sobriety History of elevated cholesterol/triglycerides Hypertension GERD Plan of Treatment: Follow up with your PCP, psychiatric provider and other outpatient providers regarding above concerns Take medications as prescribed Assessment: Risk assessment at time of discharge:? Patient was interviewed prior to discharge and found to be fully oriented and without any SI or HI. Patient has improved insight and judgment and wants to continue treatment. Patient is not in imminent risk of harm to self or others and has a safety plan that includes presenting to the closest ER or calling 911 if feeling unsafe.? Patient has been observed closely by nursing and unit staff throughout admission; patient has not engaged in any behaviors that suggest dangerousness to self or others and has demonstrated appropriate behaviors and impulse control Discharge Date/Time: 01/11/25 11:00
== END 2025-01-11 11:00 | disposition home or self-care (01) | DRG 885 ==
LOC: HO.ED 14:42 → HO.PM5 12-20 14:44
PROVIDERS: Internal Medicine; Physician Assistant Medical; Psychiatry & Neurology Psychiatry; Admitting Provider Psychiatry & Neurology Psychiatry; Emergency Provider Emergency Medicine Emergency Medical Services; PCP Nurse Practitioner Family; Visit Provider Psychiatry & Neurology Psychiatry
PROC: GZB4ZZZ Other Electroconvulsive Therapy (ICD-10-PCS; CPT 90870; principal; 2024-12-27 07:30)
DX: F33.2 Major depressive disorder, recurrent severe without psychotic features (principal); Y90.6 Blood alcohol level of 120-199 mg/100 ml; F41.1 Generalized anxiety disorder; F10.90 Alcohol use, unspecified, uncomplicated; Z79.899 Other long term (current) drug therapy
CPT/HCPCS: 36415; 80053; 80061; 80143; 80179; 80307; 81001; 82565; 82947; 83036; 83735; 84443; 85025; 87086; 90870; 93005; 99285; J0330; J1596; J1805; J2250; J2704; J7120; S9485

== ENCOUNTER → 2024-12-19 13:41 | Outpatient (BNV) | payer MEDICARE, SELFPAY | PROVIDERS: Emergency Provider Emergency Medicine Emergency Medical Services; PCP Nurse Practitioner Family; Visit Provider Internal Medicine Cardiovascular Disease | DX: Z13.6 Encounter for screening for cardiovascular disorders (principal) | CPT/HCPCS: 93010 ==

== ENCOUNTER → 2024-12-20 14:43 | Outpatient (BNV) | payer MEDICARE, SELFPAY | PROVIDERS: Admitting Provider Psychiatry & Neurology Psychiatry; Emergency Provider Emergency Medicine Emergency Medical Services; PCP Nurse Practitioner Family; Visit Provider Psychiatry & Neurology Psychiatry | DX: F33.2 Major depressive disorder, recurrent severe without psychotic features (principal) | CPT/HCPCS: 90870 ==

== ENCOUNTER → 2024-12-20 14:43 | Outpatient (BNV) | payer MEDICARE, SELFPAY | PROVIDERS: Admitting Provider Psychiatry & Neurology Psychiatry; Emergency Provider Emergency Medicine Emergency Medical Services; PCP Nurse Practitioner Family; Visit Provider Nurse Practitioner Family | DX: R79.89 Other specified abnormal findings of blood chemistry (principal); E78.1 Pure hyperglyceridemia | CPT/HCPCS: 99222 ==

== ENCOUNTER → 2024-12-20 14:43 | Outpatient (BNV) | payer MEDICARE, SELFPAY | PROVIDERS: Admitting Provider Psychiatry & Neurology Psychiatry; Emergency Provider Emergency Medicine Emergency Medical Services; PCP Nurse Practitioner Family; Visit Provider Psychiatry & Neurology Psychiatry | DX: F33.2 Major depressive disorder, recurrent severe without psychotic features (principal); F41.1 Generalized anxiety disorder; F10.90 Alcohol use, unspecified, uncomplicated | CPT/HCPCS: 90792; 90870; 99232 ==

== ENCOUNTER 2025-01-13 05:57 | Day surgery (SDC) | payer MEDICARE, SELFPAY ==
[2025-01-13] VITALS (7 sets, daily range): BP systolic 135–153; BP diastolic 77–91; PULSE 74–86; RESP 16–18; TEMP 36.2–36.3; O2SAT 94–97; BMI 36.2
--- NOTE | 2025-01-13 07:06 | HO.ANESPROP2 ---
[facility] Active Problems Active Problems: All Active Problems Hypertriglyceridemia (Acute) Depression (Acute) Elevated LFTs (Acute) Alcohol use (Acute) Fatigue (Acute) ANDREW (generalized anxiety disorder) (Acute) Major depressive disorder, recurrent severe without psychotic features (Acute) Past Medical History Medical History Fatigue Family History Family history of problems with anesthesia: No Surgical History History of Problems with Anesthesia: No Social History Social History Household Members: Spouse Housing: House Do you presently have visiting nurse or other home services: No Alcohol intake: former Patient Tobacco Use Status: Never used Tobacco Advance Directives: No Advance Directives Information Provided: Yes service: No Sexual orientation: Straight/Heterosexual Meds Allergies Allergy/AdvReac Type Severity Reaction Status Date / Time No Known Allergies Allergy Verified 12/19/24 13:11 Home Medications ?Medication ?Instructions ?Recorded ?Confirmed ?Last Taken ?Type amlodipine 10 mg tablet 10 mg PO DAILY 12/19/24 12/19/24 Unknown History ezetimibe 10 mg tablet 10 mg PO DAILY 12/19/24 12/19/24 Unknown History fenofibrate 160 mg tablet 160 mg PO DAILY 12/19/24 12/19/24 Unknown History omega-3 acid ethyl esters 1 gram 2 cap PO BID 12/19/24 12/19/24 Unknown History capsule rosuvastatin 20 mg tablet 20 mg PO DAILY 12/19/24 12/19/24 Unknown History Exam Height,Weight and Vital Signs: Height 5 ft 9 in Weight 111.13 kg Airway Mallampati Class: III TM Dist: >3cm Neck ROM: Full Heart: rrr Lungs: cta Assessment and Plan Assessment Anesthesia Assessment: Anesthesia Plan Discussed and Chart Reviewed Final Anesthetic Review Family History of Problems with Anesthesia: No History of Problems with Anesthesia: No NPO: Yes ASA Class: III Final Preanesthetic Review: No Changes in Pt Med Stat, Meds/Allgs Chart Reviewed and Consent Obtained/Reviewed Patient Risk: Intermediate Procedure Risk: Intermediate Anesthetic Plan Anesthetic Plan: GA Disposition: Standard PACU
[2025-01-13] MEDS: Lactated Ringers 1,000 ML 50 ML IVCONT (08:07)
--- NOTE | 2025-01-13 08:08 | MHC.SHP ---
Pre-Procedural Eval Section A - 24 Hr Update-Section A only Date of Service: 01/13/25 Section B - Complete if H&P > 30 days Chief Complaint: depression Details of Present Illness: pt stable feeling better future oriented Relevant Social History: Alcohol Use Allergies: Allergies Allergy/AdvReac Type Severity Reaction Status Date / Time No Known Allergies Allergy Verified 12/19/24 13:11 Review of Systems Sugical H&P ROS: Negative: Constitution, Cardiovascular, Respiratory and Neurological and Yes, Specify: Psychiatric (much improved ) Exam Surgical H&P Exam: Normal: Lungs and Normal: Neurological Plan Diagnosis/Plan: Unchanged I have reviewed the history and physical and performed a pertinent physical examination on my patient. No changes have occurred unless specified. Time Spent With Patient Time: Total time managing care of this patient today ____ minutes.
--- NOTE | 2025-01-13 08:10 | P.PCN_ITS ---
ECT Procedure Note Diagnosis/Treatment Date of Service: 01/13/25 Diagnosis: Major Depressive Disorder Previous ECT Date: 01/08/25 Current Treatment Number: 7 Treatment: Series Interval Clinical Notes: continues to feel psychiatrically improved. medically stable, no changes.no relapse sober . has returned home feels much improved will be going to [facility] Time: Total time managing care of this patient today ____ minutes. ECT Settings Device: THYMATRON DGx Electrode Placement: Right Unilateral Program/Pulse Width: 0.50 Energy Percent: 100 Seizure Duration By EEG (in seconds): 63 Medications Administration General Anesthetic: Etomidate (18) Muscle Relaxant: Succinylcholine (180) Ancillary Medications Cardiovascular Medications: Glycopyrrolate (3) Miscillaneous Medications: Midazolam (2) Airway Management Airway Management: LMA Treatment Recommendations No Changes Recommended: No change Notes: RTC saturday 01/13 Pt Tolerated Procedure w/o Issue: Yes
== END 2025-01-13 09:58 | disposition home or self-care (01) ==
PROVIDERS: PCP Nurse Practitioner Family; Visit Provider Psychiatry & Neurology Psychiatry
PROC: (CPT 90870; principal; 2025-01-13 08:00)
DX: F33.2 Major depressive disorder, recurrent severe without psychotic features (principal); F41.1 Generalized anxiety disorder; I10 Essential (primary) hypertension; E78.5 Hyperlipidemia, unspecified; E11.9 Type 2 diabetes mellitus without complications; E78.1 Pure hyperglyceridemia; R79.89 Other specified abnormal findings of blood chemistry; F10.90 Alcohol use, unspecified, uncomplicated
CPT/HCPCS: 90870; J0330; J1596; J1805; J2250; J2704

== ENCOUNTER → 2025-01-13 05:57 | Outpatient (BNV) | payer MEDICARE, SELFPAY | PROVIDERS: PCP Nurse Practitioner Family; Visit Provider Psychiatry & Neurology Psychiatry | DX: F33.2 Major depressive disorder, recurrent severe without psychotic features (principal) | CPT/HCPCS: 90870 ==

== ENCOUNTER 2025-01-15 06:00 | Day surgery (SDC) | payer MEDICARE, SELFPAY ==
[2025-01-15] VITALS (7 sets, daily range): BP systolic 134–176; BP diastolic 84–108; PULSE 79–87; RESP 12–20; TEMP 36.3–37; O2SAT 95–96; BMI 34.2
--- NOTE | 2025-01-15 07:25 | MHC.SHP ---
Pre-Procedural Eval Section A - 24 Hr Update-Section A only Date of Service: 01/15/25 Section B - Complete if H&P > 30 days Chief Complaint: depression Details of Present Illness: pt doing well no new med problems sober Relevant Social History: Alcohol Use Present Medications: see Short Stay Collaborative assessment Allergies: Allergies Allergy/AdvReac Type Severity Reaction Status Date / Time No Known Allergies Allergy Verified 12/19/24 13:11 Review of Systems Sugical H&P ROS: Negative: Cardiovascular, Respiratory, Neurological and Psychiatric (much improved) Exam Surgical H&P Exam: Normal: Heart, Normal: Lungs and Normal: Neurological Plan Diagnosis/Plan: Unchanged I have reviewed the history and physical and performed a pertinent physical examination on my patient. No changes have occurred unless specified. Time Spent With Patient Time: Total time managing care of this patient today ____ minutes.
--- NOTE | 2025-01-15 07:26 | P.PCN_ITS ---
ECT Procedure Note Diagnosis/Treatment Date of Service: 01/21/25 Diagnosis: Major Depressive Disorder Previous ECT Date: 01/08/25 Current Treatment Number: 8 Treatment: Series Interval Clinical Notes: continues to feel psychiatrically improved. medically stable, no changes.no relapse sober . has returned home feels much improved will be going to [facility] Time: Total time managing care of this patient today ____ minutes. ECT Settings Device: THYMATRON DGx Electrode Placement: Right Unilateral Program/Pulse Width: 0.50 Energy Percent: 100 Seizure Duration By EEG (in seconds): 45 Medications Administration General Anesthetic: Etomidate (18) Muscle Relaxant: Succinylcholine (180) Ancillary Medications Cardiovascular Medications: Glycopyrrolate (3) Miscillaneous Medications: Midazolam (2) Airway Management Airway Management: LMA Treatment Recommendations No Changes Recommended: No change Notes: RTC 01/22/25 Pt Tolerated Procedure w/o Issue: Yes
== END 2025-01-15 09:00 | disposition home or self-care (01) ==
PROVIDERS: PCP Nurse Practitioner Family; Visit Provider Psychiatry & Neurology Psychiatry
PROC: (CPT 90870; principal; 2025-01-15 07:00)
DX: F33.2 Major depressive disorder, recurrent severe without psychotic features (principal); F41.1 Generalized anxiety disorder; I10 Essential (primary) hypertension; E78.5 Hyperlipidemia, unspecified; E11.9 Type 2 diabetes mellitus without complications; E78.1 Pure hyperglyceridemia; F10.90 Alcohol use, unspecified, uncomplicated; Z79.84 Long term (current) use of oral hypoglycemic drugs; Z79.899 Other long term (current) drug therapy; R79.89 Other specified abnormal findings of blood chemistry
CPT/HCPCS: 90870; J0330; J1596; J2250; J2704

== ENCOUNTER → 2025-01-15 06:00 | Outpatient (BNV) | payer MEDICARE, SELFPAY | PROVIDERS: PCP Nurse Practitioner Family; Visit Provider Psychiatry & Neurology Psychiatry | DX: F32.2 Major depressive disorder, single episode, severe without psychotic features (principal) | CPT/HCPCS: 90870 ==

== ENCOUNTER → 2025-02-03 09:30 | Outpatient (BNV) | payer MEDICARE, SELFPAY | PROVIDERS: Visit Provider Psychiatry & Neurology Psychiatry | DX: F33.2 Major depressive disorder, recurrent severe without psychotic features (principal); F10.90 Alcohol use, unspecified, uncomplicated | CPT/HCPCS: 90792 ==

== ENCOUNTER 2025-02-13 11:00 | Outpatient (RCR) | payer MEDICARE, SELFPAY ==
[2025-01-31 15:20] VITALS: BP 138/94; PULSE 96; RESP 18; TEMP 36.4
[2025-01-31 16:22] VITALS: BMI 34.9
--- NOTE | 2025-01-31 17:16 | PC.ADMIT ---
Upon approach [place] is calm and pleasant, he is alert and oriented x4. He is well groomed, attentive, appropriate affect. He was discharged from [facility] psychiatric unit on 01/11/25. When asked how he felt reported endorsing depression 5/10, anxiety 3/10. He reports that due to feeling like this and relapsing on alcohol I'm here. He also reports feelings of guilt, and lacking energy. He does attend AA and has a development coach. When asked if he had any thoughts of wanting to hurt or kill self stated No, when asked if he had any thoughts of wanting to hurt or kill others stated No. He denied AVH. [facility] reports that he wants to feel better, he has a good support system at home.
--- NOTE | 2025-02-03 17:46 | HO.PS.ADMBH ---
HPI Date of Service: 02/03/25 Chief Complaint: MDD,ANDREW,AUD Sources of Information: patient interviewed, chart reviewed and crisis/core team assessment reviewed HPI Narrative: Patient is a 64 yo male with history of MDD/TRD (treatment resistant depression), anxiety, AUD, He is being referred from [facility] after 3 week-admission to [facility] underwent ECT which was eventually discharged on 01/13 and continued ECT on outpatient basis completing 10 treatments on 01/21. Patient reports ECT overall was successful, I felt better, most of the way better . He has noticed some decline in mood in the past 2 weeks since his last treatment. Mood has been a little worse reporting lack of energy, motivation and declining interest in the past 1-2 weeks. He reports relapsing on alcohol the day after discharge from hospital on 01/21 after having been sober for past 2 years. He says he drank mostly in moderation for past 2 weeks (although there is a BAL of 127 in November) and has refrained from drinking for the past 2 days. He denies any history of withdrawal symptoms *(although IP notes mention possible signs of physiological dependence despite patient denial of symptoms). He reports presently he is doing okay with this, denies any cravings, and says naltrexone has been helpful. Had been switched IP from Wellbutrin and started on Latuda. Wellbutrin felt to be helpful, was thought to exacerbate mild tremor which is still present. Latuda is also felt to be helpful. DEnies adverse effects. Sleep and appetite are intact. Depression severity at 6/10, cognitive anxiety 6/10, somatic anxiety 6/10. Panic attacks are occasional to seldom. Denies h/h/SI. Denies AH, VH, AI or HI. He relays a history of struggling with treatment resistant depression, particularly in the past 3 years in the context of difficulties adapting and maintain daily structure and sense of purpose since retiring 3 years ago. He lives at home with his of 45 years and has 3 adult children who live in the area. Past Psychiatric History: [facility] x2: at [facility] in 12/2024 and mention of an earlier admission to [facility] PHP x1: remotely >10 yrs ago to [facility] x2: remote 12 years ago (reportedly impulsive in context of intoxication) History of past sobriety up to 4 years Previous medications: Zoloft, Paxil, Wellbutrin (most recent, was helpful until ineffective), Effexor (also felt to be helpful, eventually ineffective), Abilify, [place] (AE bad:), Seroquel, gabapentin, lorazepam ECT: series of 10 in 12/2024 (helpful) TMS: 11/2024 (not felt to be helpful) CURRENT MEDICATIONS: escitalopram 20 mg qd Latuda 80 mg qd naltrexone 50 mg qhs trazodone 100 mg qhs prn topiramate 50 mg qhs lisinopril 10 mg qd amlopdipine 10 mg qd omeprazole 20 mg qhs rosuvastatin 20 mg qd ezetimibe 10 mg qd fenofibrate 160 mg qd [facility] Medical History Fatigue Narrative: HTN HLD/TG Gatric reflux h/o pancreatitis (hospitalized several times over last couple of years), sees a GI specialist s/p TKR on left s/p ankle repair R s/p shoulder repair R Ht: 5'9 Wt: 235 lbs ALL: NKDA Family History: father with depression, denies any other issues or addiction or suicides in family Social History: family is supportive; 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 graduated HS in 1979 college x 2 yrs [place] [employer] (phys ed and business) denies legal hx Substance History: Alcohol use disorder, attends AA and has a sponsor Trauma History: yes childhood Diagnostics Vital Signs (24Hr): BMI result Body Mass Index 34.9 Meds/Allergies Meds Home Medications ?Medication ?Instructions ?Recorded ?Confirmed ?Type ezetimibe 10 mg tablet 10 mg PO DAILY 12/19/24 01/31/25 History omega-3 acid ethyl esters 1 gram 2 cap PO BID 12/19/24 01/31/25 History capsule rosuvastatin 20 mg tablet 20 mg PO DAILY 12/19/24 01/31/25 History amlodipine 10 mg tablet 10 mg PO DAILY 01/31/25 01/31/25 History fenofibrate 160 mg tablet 160 mg PO DAILY 01/31/25 01/31/25 History lisinopril 10 mg PO DAILY 01/31/25 01/31/25 History [id number] 300 mcg-K 60 1 tab PO DAILY 01/31/25 01/31/25 History mcg-lycop 600 mcg-lutein 300 mcg tablet (Centrum Silver Men) topiramate 50 mg tablet 50 mg PO BEDTIME 01/31/25 01/31/25 History Allergies Allergies Allergy/AdvReac Type Severity Reaction Status Date / Time No Known Allergies Allergy Verified 12/19/24 13:11 Assessment & Plan Assessment & Plan (1) Major depressive disorder, recurrent severe without psychotic features: Status: Acute Code(s): F33.2 - Major depressive disorder, recurrent severe without psychotic features (2) Alcohol use disorder: Status: Acute Code(s): F10.90 - Alcohol use, unspecified, uncomplicated Plan Admit to [facility] VS reviewed: afebrile, BP 138/94;?96 bpm start buspirone 5 mg BID-TID will plan to start modafinil at 50 mg qam once Buspar started and will consider starting propranolol for anxiety, tremor and helpful mitigate stimulant effects of elevated HR, or perhaps guanfacine continue regular medications for now: escitalopram 20 mg qd Latuda 80 mg qd naltrexone 50 mg qhs trazodone 100 mg qhs prn topiramate 50 mg qhs lisinopril 10 mg qd amlopdipine 10 mg qd omeprazole 20 mg qhs rosuvastatin 20 mg qd ezetimibe 10 mg qd fenofibrate 160 mg qd Routine lab work as indicated EKG, routine for baseline QTc for medication considerations as indicated UDS as indicated MassPat reviewed Continue to monitor as per protocol Patient educated on: diagnosis, medication risk/benefits and substance abuse Informed Consent: understands Reason for continued partial hosp. stay Substantial Risk for: inability to function and med/psych decompensation Certification I certify that partial hospital treatment is medically necessary due to the symptoms and problems resulting from the patient's mental illness and the failure to treat the patient at the partial hospital level of care would likely result in the patient requiring inpatient psychiatric care which could not be prevented at a less intensive level of care. Time Spent With Patient Time: Total time managing care of this patient today _90___ minutes.
--- NOTE | 2025-02-06 16:12 | HO.PHP ---
Client's case was open and reviewed in teams.
--- NOTE | 2025-02-13 11:34 | P.PNPSP_ITS ---
Subjective Subjective Date of Service: 02/13/25 Reason For Visit: MDD,ANDREW,AUD Healthcare Proxy: No Guardianship: No Medical Problems Affecting Mental Status: No Interim History: Per admission note: Patient is a 64 yo male with history of MDD/TRD (treatment resistant depression), anxiety, AUD, He is being referred from [facility] after 3 week-admission to [facility]/, underwent ECT which was eventually discharged on 01/13 and continued ECT on outpatient basis completing 10 treatments on 01/21. Patient reports ECT overall was successful, I felt better, most of the way better . He has noticed some decline in mood in the past 2 weeks since his last treatment. Mood has been a little worse reporting lack of energy, motivation and declining interest in the past 1-2 weeks. He reports relapsing on alcohol the day after discharge from hospital on 01/21 after having been sober for past 2 years. He says he drank mostly in moderation for past 2 weeks (although there is a BAL of 127 in November) and has refrained from drinking for the past 2 days. He denies any history of withdrawal symptoms *(although IP notes mention possible signs of physiological dependence despite patient denial of symptoms). He reports presently he is doing okay with this, denies any cravings, and says naltrexone has been helpful. Had been switched IP from Wellbutrin and started on Latuda. Wellbutrin felt to be helpful, was thought to exacerbate mild tremor which is still present. Latuda is also felt to be helpful. DEnies adverse effects. Sleep and appetite are intact. Depression severity at 6/10, cognitive anxiety 6/10, somatic anxiety 6/10. Panic attacks are occasional to seldom. Denies h/h/SI. Denies AH, VH, AI or HI. He relays a history of struggling with treatment resistant depression, particularly in the past 3 years in the context of difficulties adapting and maintain daily structure and sense of purpose since retiring 3 years ago. He lives at home with his of 45 years and has 3 adult children who live in the area. Past Psychiatric History: [facility] x2: at [facility] in 12/2024 and mention of an earlier admission to [facility] x1: remotely >10 yrs ago to [facility] x2: remote 12 years ago (reportedly impulsive in context of intoxication) History of past sobriety up to 4 years He talked about the [facility] and what he was able to get out of it. Current medications were individually reviewed and he has enough of a supply for at least [address] Desir but will be switching over to [facility]. He denies any SI. He is involved with AA. Current living situations discussed. He is comfortable with his discharge today Medication Compliance: Yes Side effects from medications: No Review of Systems Review of Systems Yes all other systems are reviewed and are negative Mental Status Exam Mental Status Exam Narrative: In today's visit he is alert, oriented and pleasant. Normal speech. Good eye contact. Affect is appropriate and varied. No acute signs of psychosis. No delusions. No overt signs of depression. He denies any SI. Able to move all limbs. No gait abnormalities. Cognitively is intact. Judgment is intact Diagnostics Vital Signs (24Hr): BMI result Body Mass Index 34.9 Assessment & Plan Certification I certify that partial hospital treatment is medically necessary due to the symptoms and problems resulting from the patient's mental illness and the failure to treat the patient at the partial hospital level of care would likely result in the patient requiring inpatient psychiatric care which could not be prevented at a less intensive level of care. Total time managing care of this patient today ____ minutes. Discharge Plan Discharge Attending provider: Nara Bosch Medications: New buspirone 5 mg tablet 5 mg PO TID Qty: 30 0RF modafinil 100 mg tablet 100 mg PO QAM Qty: 14 0RF Rx Instructions: start at 1/2 tablet daily for 2 days then increase to one tablet daily No Action ezetimibe 10 mg tablet 10 mg PO DAILY rosuvastatin 20 mg tablet 20 mg PO DAILY omega-3 acid ethyl esters 1 gram capsule 2 cap PO BID omeprazole 20 mg Capsule,Delayed Release(Dr/Ec) 20 mg PO BEDTIME 30 Days Qty: 30 0RF naltrexone 50 mg tablet 50 mg PO DAILY 30 Days Qty: 30 0RF trazodone 100 mg tablet 100 mg PO BEDTIME PRN (Reason: insomnia) 30 Days Qty: 30 0RF escitalopram oxalate 20 mg tablet 20 mg PO BEDTIME 30 Days Qty: 30 0RF lurasidone [Latuda] 80 mg tablet 80 mg PO DAILY@1700 30 Days Qty: 30 0RF Rx Instructions: must administer with food (at least 350 calories) lisinopril tablet 10 mg PO DAILY Centrum Silver Men [id number] mcg Tablet 1 tab PO DAILY amlodipine 10 mg tablet 10 mg PO DAILY topiramate 50 mg tablet 50 mg PO BEDTIME fenofibrate 160 mg tablet 160 mg PO DAILY Stand Alone Forms: Patient Portal Discharge page Print Language: Persian
== END 2025-02-13 23:59 | disposition home or self-care (01) ==
LOC: HO.PHPA 11:00
PROVIDERS: Visit Provider Psychiatry & Neurology Psychiatry
DX: F33.2 Major depressive disorder, recurrent severe without psychotic features (principal); F10.90 Alcohol use, unspecified, uncomplicated; F41.9 Anxiety disorder, unspecified; Z79.899 Other long term (current) drug therapy
CPT/HCPCS: 90791; 90853

== ENCOUNTER 2025-04-01 12:14 | Inpatient (IN) | payer MEDICARE, SELFPAY ==
[2025-04-01] VITALS (8 sets, daily range): BP systolic 137–165; BP diastolic 80–101; PULSE 104–123; RESP 16–22; TEMP 35.9–36.9; O2SAT 94–99; BMI 37.7
--- NOTE | ~2025-04-01 | CT_ITS ---
CLINICAL HISTORY: possible pancreatitis CT abdomen and pelvis with contrast Comparison: None provided Findings: The lung bases are clear. The liver is enlarged and is low in attenuation. The gallbladder, spleen, adrenal glands and pancreas are unremarkable. Kidneys, ureters and bladder are within normal limits. The prostate gland is unremarkable by CT. Normal appendix. No bowel obstruction or free air. Mild atherosclerotic disease. There is an acute to subacute appearing superior endplate compression fracture at L1 with approximately 10% height loss. Impression: Acute to subacute superior endplate compression fracture at L1. Hepatomegaly and hepatic steatosis. No evidence of pancreatitis by CT. This document has been electronically signed by: Ernie Gray MD on 04/01/2025 22:35:31
--- NOTE | ~2025-04-01 | XR_ITS ---
CLINICAL HISTORY: bruising, fall 3 view left shoulder Comparison: None provided Findings: No fractures or dislocations. Moderate degenerative disease with joint space narrowing and osteophytosis. No erosions. No radiopaque foreign body. IMPRESSION: 1. No acute findings. Moderate DJD. This document has been electronically signed by: Sonia Silveira MD on 04/01/2025 19:28:38
--- NOTE | ~2025-04-01 | XR_ITS ---
EXAMINATION: XR CHEST CLINICAL INFORMATION: CP COMPARISON: None available. TECHNIQUE: PA and lateral views FINDINGS: No consolidation, pleural effusion or pneumothorax. No hyperinflation. Cardiomediastinal silhouette size is normal. Multilevel spondylosis, thoracic spine. Degenerative changes in the right shoulder. There is a metallic screw overlapping the coracoid process right scapula. XR/XR chest 2V IMPRESSION: No acute airspace disease. Electronically signed by: Maynor Song MD 04/01/2025 02:21 PM EST RP
--- NOTE | ~2025-04-01 | CT_ITS ---
EXAMINATION: CT HEAD WITHOUT CONTRAST CLINICAL INFORMATION: etoh, fall last night COMPARISON: None available. TECHNIQUE: Contiguous axial imaging was performed from the skull base to vertex without intravenous administration of contrast. This CT examination was performed using dose optimization techniques as appropriate, variously including the following: *Automated exposure control *Adjustment of mA and/or kV according to patient size (this includes techniques or standardized protocols for targeted exams where dose is matched to indication/reason for exam; i.e. extremities or head) *Use of iterative reconstruction technique FINDINGS: There is no acute ischemic change. There is no intracranial hemorrhage. There is no mass-effect or midline shift. Basal cisterns and ventricles are within normal limits for age/cerebral volume. Orbits are symmetrical and unremarkable. Paranasal sinuses and mastoid air cells are pneumatized. There is oblique lucency across the base of the nasal bones concerning for a fracture (CT #[address]/CT head/brain wo IV con IMPRESSION: No acute intracranial abnormality. Suspected nasal bone fracture. Electronically signed by: Fredrick Weeks MD 04/01/2025 02:37 PM [facility]
--- NOTE | 2025-04-01 12:24 | ED_ITS ---
HPI - Psych General Chief Complaint: Psychiatric Symptoms Stated Complaint: SI Time Seen by Provider: 04/01/25 13:11 Source: patient and RN notes reviewed Mode of arrival: ambulatory Limitations: no limitations History of Present Illness ED Provider: Vivi Gomez PA-C HPI Narrative: This is a 64-year-old male, major depressive disorder and generalized anxiety disorder , hypertension, hyperlipidemia, type 2 diabetes and history of EtOH use, who presents emergency department with concerns of suicidal ideation which has started several days ago. He states that he does have a plan however does not allude to his details at this time. He has not made any attempts end his life. He does report he drinks daily. Does feel as though he is going into withdrawal. He states he last drank earlier today. He is typically drinks 4 nips today, last drink was this morning. Patient does report that he had a fall yesterday, denies head strike. He states that he fell because he was intoxicated. He denies any chest pain, shortness of breath, abdominal pain, nausea, vomiting or diarrhea. He states that he is only having left leg pain. He states that he has been off of his psychiatric medications for several days which she believes is causing him to have these thoughts. He does admit to having some episodes of dry heaving over this past week. He also endorses some mild diarrhea, no bloody or black stool. MD complaint: suicidal ideation Relieving factors: none Exacerbating factors: none Context: recent alcohol abuse Associated psychiatric symptoms: depression and suicidal ideation Associated symptoms: denies other symptoms Treatments prior to arrival: none If self harm: has plan Details of plan: Refuses to tell me plan Related Data Home Medications ?Medication ?Instructions ?Recorded ?Confirmed ezetimibe 10 mg tablet 10 mg PO DAILY 12/19/2403/22 omega-3 acid ethyl esters 1 gram 2 cap PO BID 12/19/24 04/02/25 capsule rosuvastatin 20 mg tablet 20 mg PO DAILY 12/19/2403/22 amlodipine 10 mg tablet 10 mg PO DAILY 01/31/2503/22 fenofibrate 160 mg tablet 160 mg PO DAILY 01/31/2505/15 [id number] 300 mcg-K 60 1 tab PO DAILY 01/31/25 04/02/25 mcg-lycop 600 mcg-lutein 300 mcg tablet (Centrum Silver Men) topiramate 50 mg tablet 50 mg PO BEDTIME 01/31/25 trazodone 100 mg tablet 100 mg PO BEDTIME insomnia 1 06/02/24 04/02/25 Previous Rx's ?Medication ?Instructions ?Recorded escitalopram oxalate 20 mg tablet 20 mg PO BEDTIME 30 days #30 tabs 01/09/25 naltrexone 50 mg tablet 50 mg PO DAILY 30 days #30 t abs 01/09/25 omeprazole 20 mg capsule,delayed 20 mg PO BEDTIME 30 d ays #30 caps 01/09/25 release lurasidone 80 mg tablet (Latuda) 80 mg PO DAILY@1700 3 0 days #30 01/15/25 tabs Allergies Allergy/AdvReac Type Severity Reaction Status Date / Time No Known Allergies Allergy Verified 04/01/25 12:28 Review of Systems 2 Review of Systems: Yes all other systems are reviewed and are negative Constitutional: Constitutional: Reports as per [facility] Past Medical History Medical History Fatigue Social History Social History Household Members: Spouse Housing: House Do you presently have visiting nurse or other home services: No Alcohol intake: current Alcohol intake frequency: 3 or more drinks per day Alcohol type: hard liquor Comment: 1:1 sitter at bedside Patient Tobacco Use Status: Never used Tobacco Smoked in Last 30 Days: No Use of substances other than those prescribed or required for medical reasons: No Currently Displaying Signs/Symptoms of Drug Intoxication Withdrawal: No Advance Directives: Yes Advance Directives Information Provided: Yes Advance Directives on File: Yes Advance Directives Date on File: 04/02/25 Do you have a plan to hurt others: No Plan Recently lost weight without trying: Unsure service: No Sexual orientation: Straight/Heterosexual Physical Exam 2 Vital Signs: Vital Signs: Last Vital Signs Temp 98 F 04/07/25 06:47 Pulse 85 04/07/25 06:47 Resp 18 04/07/25 06:47 BP 114/57 L 04/07/25 06:47 Pulse Ox 95 04/07/25 06:47 O2 Del Method Room Air 04/07/25 06:47 O2 Flow Rate 2 04/03/25 06:00 FiO2 25 04/04/25 06:00 BMI result Body Mass Index 37.7 Const: Other: Anxious appearing General: cooperative Orientation/consciousness: patient oriented x3 L imitations: no limitations HEENT: Other: Mild tenderness palpation along the nasal bridge. No septal hematoma noted. Head: Yes normal to inspection, Yes normocephalic and Yes atraumatic E ars: hearing grossly normal bilaterally General nose exam: Normal external nose present Face and sinus: Yes normal facial exam Mouth: Normal oral and palatal mucosa present, oropharynx normal and moist mucous membranes Throat: Yes posterior oropharynx normal Eyes: General: appearance normal, both eyes and all related structures E yelids: Yes eyelids normal Conjunctivae: conjunctivae normal Sclerae: s clerae normal Pupils: Equal, round and reactive pupils present EOM: EOMs intact bilaterally Neck: Other: No cervical midline spine tenderness on examination. Neck: Yes normal visual inspection, Yes full ROM and Yes no lymphadenopathy Lymphatic: no lymphadenopathy noted Chest: Chest palpation & inspection: normal inspection of the chest Resp: Effort & Inspection: normal respiratory effort and able to speak in complete sentences Auscultation: clear to auscultation bilaterally, no crackles, no rales, no rhonchi and no wheezes Cardio: Rate: regular rate Rhythm: regular rhythm Heart sounds: S1 normal heart sound present and S2 normal heart sound present GI: Other: Abdomen is soft, nontender, nondistended. No ecchymosis seen. Inspection: Yes normal to inspection Skin: General skin exam: no rashes or lesions noted Trauma: no lacerations or abrasions Wounds: no wounds Neuro: General: patient oriented x3 and moves all extremities Cranial nerves: Yes Equal, round and reactive pupils present Extrem: Other: Left shoulder with old ecchymosis seen, mildly tender, full ROM, no bony step- off or deformity. General: Yes normal to inspection Right upper extremity: normal to inspection Left upper extremity: normal to inspection Right lower extremity: normal to inspection Left lower extremity: normal to inspection Psych: Appearance: well kempt Speech and movement: Restless speech present Affect: Anxious affect present Attitude: Guarded attititude/behavior present and Avoids eye contact (attititude/behavior) Thought process: Normal thought process present Thought content: Suicidality present Insight: Poor insight present (Psych) Judgement: Poor judgement present (Psych) Course Course Course Narrative: This is a rapid medical exam performed by Elza Street NP: Additional HPI, ROS, PE not included below will be deferred to primary provider. Patient is a 64y/o M with pmhx of AUD, MDD presenting with complaint of suicidal ideation. Last drank 4 nips this morning. Denies history of withdrawal szs. Had a fall last night, abrasion to head. Complains of bilateral leg pain. Plan: labs, UA, CT head Reevaluation(s) Reevaluation #1: Karis: The patient was signed out to me by the physician application assistant at change of shift. The patient is a 64-year-old male with a history of chronic psychiatric illness and alcohol use disorder who presents feeling shaky and possibly in alcohol withdrawal. He says that he stopped his lurasidone and escitalopram several days ago as well. His workup in the emergency room was complicated by the lab being unable to give a reliable result for his serum bicarbonate and anion gap. The lab felt that the patient's blood was very lipemic. We therefore ordered a lipid panel including triglycerides. The patient had already received phenobarbital for possible alcohol withdrawal. He was tachycardic and hypertensive. Also, since his original BNP result indicated a serum bicarb of less than 5 I was concerned about the possibility of alcoholic ketoacidosis and so he was given IV fluids with dextrose. However since the patient's pH was normal this may have not been clearly indicated. In any event we were ultimately able to get additional labs after a total of 3 L of crystalloid in the lab was able to run a full basic metabolic panel indicating a carbon dioxide of 18 and an anion gap of 17. His lactic acid is 3.3. I do not have a great explanation for this accept that it is probably related to his alcohol use. I spoke to the hospitalist about admitting this patient for alcohol withdrawal symptoms. However because of the severe triglyceridemia (triglycerides were 5253) the hospitalist felt that the patient would be better served in the ICU on an insulin drip to try to treat his hypertriglyceridemia. I contacted the ICU and the patient was accepted for further care. Medications Administered Generic Name Dose Route Start Last Admin Trade Name Freq PRN Reason Stop Dose Admin Amlodipine Besylate 10 mg 04/02/25 09:30 04/07/25 08:13 Amlodipine Besylate 10 Mg Tablet PO 10 mg DAILY PAYAM Administration Protocol Atorvastatin Calcium 80 mg 04/07/25 09:00 04/07/25 08:13 Atorvastatin Calcium 80 Mg Tablet PO 80 mg DAILY PAYAM Administration Chlordiazepoxide HCl 10 mg 04/02/25 09:27 04/06/25 21:55 Chlordiazepoxide Hcl 5 Mg Capsule PO 10 mg TID PRN Administration Alcohol Withdrawal Ezetimibe 10 mg 04/02/25 09:30 04/07/25 08:13 Ezetimibe 10 Mg Tablet PO 10 mg DAILY PAYAM Administration Escitalopram Oxalate 20 mg 04/02/25 21:00 04/06/25 20:13 Escitalopram Oxalate 20 Mg Tablet PO 20 mg BEDTIME PAYAM Administration Fenofibrate 160 mg 04/02/25 09:30 04/07/25 08:13 Fenofibrate 160 Mg Tablet PO 160 mg DAILY PAYAM Administration Heparin Sodium (Porcine) 5,000 unit 04/02/25 22:00 04/07/25 06:06 Heparin Sodium,Porcine 5,000 Unit/Ml Vial SUBCUT 5,000 unit Q8H PAYAM Administration Ketorolac Tromethamine 15 mg 04/02/25 21:55 04/07/25 08:13 Ketorolac Tromethamine 15 Mg/Ml Vial IVPUSH 15 mg Q6H PRN Administration Pain, Moderate(Pain Scale 4-6) Lurasidone HCl 40 mg 04/03/25 09:00 04/07/25 08:13 Lurasidone Hcl 40 Mg Tablet PO 40 mg DAILY PAYAM Administration Metoprolol Tartrate 5 mg 04/02/25 00:01 04/02/25 00:11 Metoprolol Tartrate 5 Mg/5 Ml Vial IVPUSH 5 mg Q6H PRN Administration SBP > 150 Protocol Olanzapine 5 mg 04/04/25 09:33 04/07/25 08:12 Olanzapine 10 Mg Vial IM 5 mg BID PRN Administration Anxiety Ondansetron HCl 4 mg 04/02/25 06:49 04/02/25 07:11 Ondansetron Hcl 4 Mg/2 Ml Vial IVPUSH 4 mg Q6H PRN Administration Nausea and Vomiting Topiramate 50 mg 04/02/25 21:00 04/06/25 20:13 Topiramate 25 Mg Tablet PO 50 mg BEDTIME PAYAM Administration Trazodone HCl 100 mg 04/02/25 21:00 04/06/25 20:13 Trazodone Hcl 100 Mg Tablet PO 100 mg BEDTIME PAYAM Administration Discontinued Medications Generic Name Dose Route Start Last Admin Trade Name Jordan WEAVER Reason Stop Dose Admin Diazepam 10 mg 04/01/25 17:38 04/01/25 17:52 Diazepam 10 Mg/2 Ml Cartridge IVPUSH 04/01/25 17:39 10 mg STAT STA Administration Diazepam 10 mg 04/01/25 20:59 04/01/25 21:04 Diazepam 10 Mg/2 Ml Cartridge IVPUSH 04/01/25 21:00 10 mg STAT STA Administration Enoxaparin Sodium 40 mg 04/01/25 22:04 04/01/25 23:30 Enoxaparin Sodium 40 Mg/0.4 Ml Syringe SUBCUT 04/01/25 22:05 40 mg ONCE ONE Administration Sodium Chloride 1,000 mls @ 999 mls/hr 04/01/25 14:37 04/01/25 15:49 Ns IV 04/01/25 15:37 Infused .Q1H1M ONE Infusion Sodium Chloride 1,000 mls @ 999 mls/hr 04/01/25 16:53 04/01/25 17:41 Ns IV 04/01/25 17:53 Infused .Q1H1M ONE Infusion Magnesium Sulfate 2 gm in 50 mls @ 150 mls/hr 04/01/25 17:25 04/01/25 18:11 Magnesium Sulfate/H2o IV 04/01/25 17:44 Infused ONCE ONE Infusion Dextrose/Sodium Chloride 1,000 mls @ 500 mls/hr 04/01/25 17:53 04/01/25 19:57 D5ns IVCONT 04/01/25 19:52 Infused .Q2H ONE Infusion Insulin Human Regular 100 unit in 100 mls @ 10 mls/hr 04/01/25 22:00 04/04/25 13:44 Myxredlin IVCONT Infused .Q10H PAYAM Titration Protocol 10 UNIT/HR Thiamine HCl 100 mg/ Sodium 101 mls @ 202 mls/hr 04/01/25 21:56 04/01/25 23:26 Chloride IV 04/01/25 22:25 Infused ONCE ONE Infusion Dextrose/Lactated Ringer's 1,000 mls @ 100 mls/hr 04/01/25 22:15 04/02/25 16:57 D5lr IVCONT Not Given .Q10H PAYAM Magnesium Sulfate 2 gm in 50 mls @ 25 mls/hr 04/01/25 22:10 04/02/25 01:30 Magnesium Sulfate/H2o IV 04/02/25 00:09 Infused ONCE ONE Infusion Calcium Gluconate 2 gm in 100 mls @ 50 mls/hr 04/01/25 22:17 04/02/25 01:35 Calcium Gluconate IV 04/02/25 00:16 Infused ONCE ONE Infusion Thiamine HCl 100 mg/ Sodium 101 mls @ 202 mls/hr 04/02/25 09:00 04/04/25 08:52 Chloride IV Infused DAILY PAYAM Infusion Folic Acid 1 mg/ Sodium 50.2 mls @ 100.4 mls/hr 04/02/25 09:00 04/04/25 09:12 Chloride IV Infused DAILY PAYAM Infusion Dextrose 1,000 mls @ 200 mls/hr 04/02/25 13:18 04/04/25 13:44 D10 IVCONT Infused .Q5H PAYAM Infusion Magnesium Sulfate/Dextrose 1 gm in 100 mls @ 100 mls/hr 04/05/25 07:14 04/05/25 10:19 Magnesium Sulfate/D5w IV 04/05/25 08:13 Infused ONCE ONE Infusion Iohexol 100 ml 04/01/25 22:14 04/01/25 22:15 Iohexol 350 Mg/Ml 100 Ml Infus..Btl IV 04/01/25 22:15 100 ml ONCE ONE Administration Ketorolac Tromethamine 15 mg 04/01/25 23:53 04/02/25 00:11 Ketorolac Tromethamine 15 Mg/Ml Vial IVPUSH 04/01/25 23:54 15 mg ONCE ONE Administration Ketorolac Tromethamine 15 mg 04/02/25 08:22 04/02/25 08:39 Ketorolac Tromethamine 15 Mg/Ml Vial IM 15 mg Q6H PRN Administration Pain, Moderate(Pain Scale 4-6) Lorazepam 2 mg 04/01/25 13:17 04/01/25 13:36 Lorazepam 1 Mg Tablet PO 04/01/25 13:18 2 mg ONCE ONE Administration Olanzapine 10 mg 04/02/25 08:23 04/03/25 13:26 Olanzapine 10 Mg Vial IM 10 mg DAILY PRN Administration Anxiety Olanzapine 5 mg 04/02/25 17:01 04/02/25 17:38 Olanzapine 10 Mg Vial IM 04/02/25 17:02 5 mg ONCE ONE Administration Pantoprazole Sodium 40 mg 04/02/25 06:30 04/02/25 05:38 Pantoprazole Sodium 40 Mg/10 Ml Vial IVPUSH 40 mg DAILY@0630 PAYAM Administration Phenobarbital 45 mg 04/02/25 09:00 04/02/25 07:11 Phenobarbital 15 Mg Tablet PO 04/03/25 21:01 45 mg BID PAYAM Administration Protocol Phenobarbital Sodium 275 mg 04/01/25 15:00 04/01/25 15:30 Phenobarbital Sodium 130 Mg/Ml Im Once IM 04/01/25 15:01 275 mg ONCE ONE Administration Protocol Phenobarbital Sodium 130 mg 04/01/25 17:15 04/01/25 17:15 Phenobarbital Sodium 130 Mg/Ml Im Once IM 04/01/25 17:16 130 mg ONCE ONE Administration Protocol Phenobarbital Sodium 310 mg 04/01/25 20:15 04/01/25 23:42 Phenobarbital Sodium 130 Mg/Ml Vial Im Q3hx2 IM 04/01/25 23:16 310 mg Q3H PAYAM Administration Protocol Potassium Chloride 40 meq 04/03/25 05:12 04/03/25 05:29 Potassium Chloride Er 20 Meq Tab.Er.Prt PO 04/03/25 05:13 40 meq ONCE ONE Administration Potassium Phos/Sodium Phos 2 packet 04/04/25 07:30 04/04/25 07:35 Sodium,Potassium Phosphates Powd.Pack PO 04/04/25 07:31 2 packet ONCE ONE Administration Trazodone HCl 50 mg 04/05/25 01:54 04/05/25 02:28 Trazodone Hcl 50 Mg Tablet PO 04/05/25 01:55 50 mg ONCE ONE Administration Medical Decision Making Medical Decision Making MDM Narrative: This is a 64-year-old male, major depressive disorder and generalized anxiety disorder , hypertension, hyperlipidemia, type 2 diabetes and history of EtOH use, who presents emergency department with concerns of suicidal ideation which has started several days ago. Patient expresses alcohol use disorder, states that he drinks daily. He believes that he has an alcohol withdrawal. He denies any history of alcohol withdrawal seizures in the past. Patient states that he has had increased thoughts of harming himself, he states that he has a plan however he does not express that plan to me. He does report he fell yesterday, states that he was intoxicated. He does have old bruising noted overlying his left shoulder. He has no chest pain or stomach pain. No severe headache. He reports that he is feeling very anxious. He was medicated with p.o. Ativan. Will also start on phenobarb. 4:30 PM 04/01/2025 (Vivi Gomez PA-C): Received critical CO2 of less than 5, the lab called stating that they believe that this is an error, and recommends a repeat draw. They are unsure if this is due to the sample being highly lipemic. I called to see with the VBG is 27. We repeated all labs. Patient is still remains to be very uncomfortable secondary to alcohol withdrawal, he states that he is feeling very anxious, tremulous. Dr. Dyson had recommended increasing phenobarb to 15 mg/kg rather than 10 milligrams/kg, pharmacy adjusted this order, and patient was given dose of phenobarb. 5:30 PM 04/01/2025 (Vivi Gomez PA-C): Repeat labs revealing that patient is still has a low CO2 on chemistry however VBG is 28. Chemistry also significant for transaminitis, with an AST and ALT of 1294/293, lipase within normal limits. He is slightly hyponatremic at 131. I reached out to given metabolic derangements, and uncertainty as to why this is. Dr. Mejía will review case. Patient remains to be anxious, medicated with IV diazepam 10 milligrams per recommendations of my attending physician, Dr. Dyson. Will also administer 1L D5NS IV. Once this returns, we will repeat basic metabolic panel. 6:35 PM 04/01/2025 (Vivi Gomez PA-C): Patient re-evaluated, he is feeling better after receiving IV diazepam. We will continue to closely monitor pending overall workup. We did consider discontinuation of psychiatric medications and withdrawal however appears that this would not this is early cause his symptoms he is presenting with. Sign out given to my attending physician, Dr. Dyson pending repeat labs and evaluation. Differential Diagnosis Differential Diagnoses: The differential diagnosis associated with the presentation includes etoh withdrawal, anxiety, depression, SI, electrolyte derangement Admission/Observation Consideration of admission/observation: Escalation of care including admission/observation considered Lab Data [facility] Lab Attestation statement: I reviewed the patient's lab results. See MDM 04/07/25 05:59 04/07/25 05:59 Labs: Lab Results 04/01/25 04/01/25 04/01/25 Range/Units 12:51 12:52 14:33 WBC 11.0 H (4.8-10.8) X10*3/uL RBC 4.65 (4.60-5.80) X10*6/uL Hgb 14.5 (14.0-18.0) g/dl Hct 39.0 L (42.0-52.0) % MCV 83.9 (80.0-98.0) fL MCH 31.2 (27.0-33.0) pg MCHC 37.2 H (31.0-36.0) g/dl RDW 13.4 (11.0-16.0) % Plt Count 220 (160-400) X10*3/uL MPV 9.5 (9.4-12.4) fL Immature Gran % (Auto) 0.5 H (0.0-0.4) % Neut % (Auto) 71.9 (45-73) % Lymph % (Auto) 18.1 L (20-40) % [place] % (Auto) 9.5 (2-11) % Eos % (Auto) 0.0 (0-4) % Baso % (Auto) 0.0 (0-2) % Lymph # (Auto) 0.4 L (1.2-4.9) X10*3/uL [place] # (Auto) 0.2 (0.1-1.2) X10*3/uL Eos # (Auto) 0.0 (0.0-0.4) X10*3/uL Baso # (Auto) 0.0 (0.0-0.2) X10*3/uL Abs Immat Gran (auto) 0.01 (0.00-0.03) X10*3/uL Absolute Neuts (auto) 1.6 L (2.0-8.3) x10*3/uL Absolute Nucleated RBC 0.000 (0.0-0.012) X10*3/uL Nucleated RBC % (auto) 0.0 (0.0-0.2) /100WBC Smear Tech's Comments VERIFIED PT 12.4 (11.2-13.5) SEC INR 1.0 (0.9-1.1) VBG pH (7.32-7.43) VBG pCO2 mmHg VBG pO2 mmHg VBG HCO3 (22-26) mmol/L VBG O2 Saturation % VBG Base Excess mmol/L Sodium 130 L (135-145) mmol/L Potassium 3.9 (3.3-5.1) mmol/L Chloride 97 (96-108) mmol/L Carbon Dioxide < 5 L* D (22-29) mmol/L Anion Gap TNP BUN 17 H (9-16) mg/dL Creatinine 1.20 (0.5-1.4) mg/dL Estim Creat Clear Calc 76.6 Estimated GFR > 60 Random Glucose 114 (60-115) mg/dL Lactic Acid (0.5-2.0) mmol/L Calcium 8.0 L D (8.4-10.2) mg/dL Phosphorus (2.7-4.5) mg/dL Magnesium 1.4 L* (1.6-2.6) mg/dL Total Bilirubin 1.0 (0.0-1.0) mg/dL AST 1323 H (5-37) U/L ALT 293 H (0-40) U/L Alkaline Phosphatase 153 H (39-117) U/L Troponin I High Sens (<3.5-35.0) ng/L Total Protein 6.9 (6.5-8.0) g/dL Albumin 3.7 (3.5-5.0) g/dL Triglycerides (<150) mg/dL Cholesterol (<200) mg/dL LDL Cholesterol, Calc HDL Cholesterol (>40) mg/dL Lipase (8-78) U/L TSH (0.32-4.0) uIU/mL Free T4 (0.71-1.85) ng/dL Urine Color Urine Appearance Urine pH (5.0-9.0) Ur Specific [place] (1.005-1.025) Urine Protein (Neg-Trace) mg/dL Urine Glucose (UA) (Negative) mg/dL Urine Ketones (Negative) mg/dL Urine Blood (Negative) Urine Nitrite (Negative) Ur Leukocyte Esterase (Negative) Urine RBC (0-2) /HPF Urine WBC (0-5) /HPF Ur Squamous Epith Cells (0-2) /HPF Urine Bacteria (None Seen) Hyaline Casts (0-2) /LPF Urine Opiates Screen (Not Detect) Ur Buprenorphine Scrn (Not Detect) ng/mL Ur Oxycodone Screen (Not Detect) ng/mL Urine Methadone Screen (Not Detect) ng/mL Urine Fentanyl Screen (Not Detect) Ur Barbiturates Screen (Not Detect) Ur Phencyclidine Scrn (Not Detect) Ur Amphetamines Screen (Not Detect) U Benzodiazepines Scrn (Not Detect) Urine Cocaine Screen (Not Detect) U Marijuana (THC) Screen (Not Detect) Ethyl Alcohol 146 mg/dL Hepatitis A IgM Ab (Nonreactive) Hep Bs Antigen (Negative) Hep Bs Antibody (Nonreactive) Hep B Core Total Ab (Nonreactive) Hepatitis C Ab (EIA) (Nonreactive) Influenza Type A (PCR) NEGATIVE (Negative) Influenza Type B (PCR) NEGATIVE (Negative) RSV RNA Qual (PCR) NEGATIVE (Negative) SARS-CoV-2 RNA (RT-PCR) NEGATIVE (Negative) 04/01/25 04/01/25 04/01/25 Range/Units 14:33 16:16 16:24 WBC 11.4 H (4.8-10.8) X10*3/uL RBC 4.91 (4.60-5.80) X10*6/uL Hgb 15.7 (14.0-18.0) g/dl Hct 42.0 (42.0-52.0) % MCV 85.5 (80.0-98.0) fL MCH 32.0 (27.0-33.0) pg MCHC 37.4 H (31.0-36.0) g/dl RDW 13.5 (11.0-16.0) % Plt Count 199 (160-400) X10*3/uL MPV 9.4 (9.4-12.4) fL Immature Gran % (Auto) 0.5 H (0.0-0.4) % Neut % (Auto) 68.4 (45-73) % Lymph % (Auto) 22.9 (20-40) % [place] % (Auto) 8.1 (2-11) % Eos % (Auto) 0.0 (0-4) % Baso % (Auto) 0.1 (0-2) % Lymph # (Auto) 2.6 (1.2-4.9) X10*3/uL [place] # (Auto) 0.9 (0.1-1.2) X10*3/uL Eos # (Auto) 0.0 (0.0-0.4) X10*3/uL Baso # (Auto) 0.0 (0.0-0.2) X10*3/uL Abs Immat Gran (auto) 0.06 H (0.00-0.03) X10*3/uL Absolute Neuts (auto) 7.8 (2.0-8.3) x10*3/uL Absolute Nucleated RBC 0.000 (0.0-0.012) X10*3/uL Nucleated RBC % (auto) 0.0 (0.0-0.2) /100WBC Smear Tech's Comments PT 12.8 (11.2-13.5) SEC INR 1.0 (0.9-1.1) VBG pH 7.40 (7.32-7.43) VBG pCO2 28 mmHg VBG pO2 61 mmHg VBG HCO3 17 L (22-26) mmol/L VBG O2 Saturation 74.0 % VBG Base Excess -5.1 mmol/L Sodium 131 L (135-145) mmol/L Potassium 3.9 (3.3-5.1) mmol/L Chloride 99 (96-108) mmol/L Carbon Dioxide TNP (22-29) mmol/L Anion Gap TNP BUN 17 H (9-16) mg/dL Creatinine 1.24 (0.5-1.4) mg/dL Estim Creat Clear Calc 74.2 Estimated GFR 59 Random Glucose 130 H (60-115) mg/dL Lactic Acid (0.5-2.0) mmol/L Calcium 8.0 L (8.4-10.2) mg/dL Phosphorus (2.7-4.5) mg/dL Magnesium 1.5 L (1.6-2.6) mg/dL Total Bilirubin 1.0 (0.0-1.0) mg/dL AST 1294 H (5-37) U/L ALT 293 H (0-40) U/L Alkaline Phosphatase 154 H (39-117) U/L Troponin I High Sens 10.9 (<3.5-35.0) ng/L Total Protein 6.8 (6.5-8.0) g/dL Albumin 3.7 (3.5-5.0) g/dL Triglycerides 5253 H (<150) mg/dL Cholesterol 702 H (<200) mg/dL LDL Cholesterol, Calc TNP HDL Cholesterol 24 L (>40) mg/dL Lipase 19 (8-78) U/L TSH (0.32-4.0) uIU/mL Free T4 (0.71-1.85) ng/dL Urine Color Dark Yellow Urine Appearance Cloudy Urine pH 5.5 (5.0-9.0) Ur Specific [place] 1.010 (1.005-1.025) Urine Protein 100 (2+) H (Neg-Trace) mg/dL Urine Glucose (UA) Negative (Negative) mg/dL Urine Ketones Negative (Negative) mg/dL Urine Blood Large (3+) H (Negative) Urine Nitrite Negative (Negative) Ur Leukocyte Esterase Negative (Negative) Urine RBC >20 H (0-2) /HPF Urine WBC 0-5 (0-5) /HPF Ur Squamous Epith Cells 0-2 (0-2) /HPF Urine Bacteria None Seen (None Seen) Hyaline Casts 11-20 (0-2) /LPF Urine Opiates Screen Not Detected (Not Detect) Ur Buprenorphine Scrn Not Detected (Not Detect) ng/mL Ur Oxycodone Screen Not Detected (Not Detect) ng/mL Urine Methadone Screen Not Detected (Not Detect) ng/mL Urine Fentanyl Screen Not Detected (Not Detect) Ur Barbiturates Screen Not Detected (Not Detect) Ur Phencyclidine Scrn Not Detected (Not Detect) Ur Amphetamines Screen Not Detected (Not Detect) U Benzodiazepines Scrn Not Detected (Not Detect) Urine Cocaine Screen Not Detected (Not Detect) U Marijuana (THC) Screen Not Detected (Not Detect) Ethyl Alcohol Cancelled mg/dL Hepatitis A IgM Ab (Nonreactive) Hep Bs Antigen (Negative) Hep Bs Antibody (Nonreactive) Hep B Core Total Ab (Nonreactive) Hepatitis C Ab (EIA) (Nonreactive) Influenza Type A (PCR) (Negative) Influenza Type B (PCR) (Negative) RSV RNA Qual (PCR) (Negative) SARS-CoV-2 RNA (RT-PCR) (Negative) 04/01/25 04/01/25 Range/Units 20:53 21:01 WBC (4.8-10.8) X10*3/uL RBC (4.60-5.80) X10*6/uL Hgb (14.0-18.0) g/dl Hct (42.0-52.0) % MCV (80.0-98.0) fL MCH (27.0-33.0) pg MCHC (31.0-36.0) g/dl RDW (11.0-16.0) % Plt Count (160-400) X10*3/uL MPV (9.4-12.4) fL Immature Gran % (Auto) (0.0-0.4) % Neut % (Auto) (45-73) % Lymph % (Auto) (20-40) % [place] % (Auto) (2-11) % Eos % (Auto) (0-4) % Baso % (Auto) (0-2) % Lymph # (Auto) (1.2-4.9) X10*3/uL [place] # (Auto) (0.1-1.2) X10*3/uL Eos # (Auto) (0.0-0.4) X10*3/uL Baso # (Auto) (0.0-0.2) X10*3/uL Abs Immat Gran (auto) (0.00-0.03) X10*3/uL Absolute Neuts (auto) (2.0-8.3) x10*3/uL Absolute Nucleated RBC (0.0-0.012) X10*3/uL Nucleated RBC % (auto) (0.0-0.2) /100WBC Smear Tech's Comments PT (11.2-13.5) SEC INR (0.9-1.1) VBG pH 7.43 (7.32-7.43) VBG pCO2 27 mmHg VBG pO2 71 mmHg VBG HCO3 19 L (22-26) mmol/L VBG O2 Saturation 93.0 % VBG Base Excess -3.5 mmol/L Sodium 130 L (135-145) mmol/L Potassium 4.1 (3.3-5.1) mmol/L Chloride 99 (96-108) mmol/L Carbon Dioxide 18 L (22-29) mmol/L Anion Gap 17 BUN 15 (9-16) mg/dL Creatinine 1.09 (0.5-1.4) mg/dL Estim Creat Clear Calc 84.4 Estimated GFR > 60 Random Glucose 105 (60-115) mg/dL Lactic Acid 3.3 H* (0.5-2.0) mmol/L Calcium 7.6 L (8.4-10.2) mg/dL Phosphorus 3.0 (2.7-4.5) mg/dL Magnesium (1.6-2.6) mg/dL Total Bilirubin (0.0-1.0) mg/dL AST (5-37) U/L ALT (0-40) U/L Alkaline Phosphatase (39-117) U/L Troponin I High Sens 11.9 (<3.5-35.0) ng/L Total Protein (6.5-8.0) g/dL Albumin (3.5-5.0) g/dL Triglycerides (<150) mg/dL Cholesterol (<200) mg/dL LDL Cholesterol, Calc HDL Cholesterol (>40) mg/dL Lipase (8-78) U/L TSH 5.31 H (0.32-4.0) uIU/mL Free T4 0.95 (0.71-1.85) ng/dL Urine Color Urine Appearance Urine pH (5.0-9.0) Ur Specific [place] (1.005-1.025) Urine Protein (Neg-Trace) mg/dL Urine Glucose (UA) (Negative) mg/dL Urine Ketones (Negative) mg/dL Urine Blood (Negative) Urine Nitrite (Negative) Ur Leukocyte Esterase (Negative) Urine RBC (0-2) /HPF Urine WBC (0-5) /HPF Ur Squamous Epith Cells (0-2) /HPF Urine Bacteria (None Seen) Hyaline Casts (0-2) /LPF Urine Opiates Screen (Not Detect) Ur Buprenorphine Scrn (Not Detect) ng/mL Ur Oxycodone Screen (Not Detect) ng/mL Urine Methadone Screen (Not Detect) ng/mL Urine Fentanyl Screen (Not Detect) Ur Barbiturates Screen (Not Detect) Ur Phencyclidine Scrn (Not Detect) Ur Amphetamines Screen (Not Detect) U Benzodiazepines Scrn (Not Detect) Urine Cocaine Screen (Not Detect) U Marijuana (THC) Screen (Not Detect) Ethyl Alcohol mg/dL Hepatitis A IgM Ab Nonreactive (Nonreactive) Hep Bs Antigen Negative (Negative) Hep Bs Antibody NONREACTIVE (Nonreactive) Hep B Core Total Ab Nonreactive (Nonreactive) Hepatitis C Ab (EIA) Nonreactive (Nonreactive) Influenza Type A (PCR) (Negative) Influenza Type B (PCR) (Negative) RSV RNA Qual (PCR) (Negative) SARS-CoV-2 RNA (RT-PCR) (Negative) Independent Interpretation I performed an independent interpretation of an: EKG Interpretation: EKG sinus tachycardic at a ventricular rate of 109 beats per minute, WV interval 138, QT QTC 338/455, no STEMI Radiology Impression Discussion of test interpretation with radiology: I have reviewed the radiologist's reading. Radiologist Impression: EXAMINATION: XR CHEST CLINICAL INFORMATION: CP COMPARISON: None available. TECHNIQUE: PA and lateral views FINDINGS: No consolidation, pleural effusion or pneumothorax. No hyperinflation. Cardiomediastinal silhouette size is normal. Multilevel spondylosis, thoracic spine. Degenerative changes in the right shoulder. There is a metallic screw overlapping the coracoid process right scapula. XR/XR chest 2V IMPRESSION: No acute airspace disease. Electronically signed by: Maynor Song MD 04/01/2025 02:21 PM [facility] Dictated By: Maynor Tilley MD COMPARISON: None available. TECHNIQUE: Contiguous axial imaging was performed from the skull base to vertex without intravenous administration of contrast. This CT examination was performed using dose optimization techniques as appropriate, variously including the following: *Automated exposure control *Adjustment of mA and/or kV according to patient size (this includes techniques or standardized protocols for targeted exams where dose is matched to indication/reason for exam; i.e. extremities or head) *Use of iterative reconstruction technique FINDINGS: There is no acute ischemic change. There is no intracranial hemorrhage. There is no mass-effect or midline shift. Basal cisterns and ventricles are within normal limits for age/cerebral volume. Orbits are symmetrical and unremarkable. Paranasal sinuses and mastoid air cells are pneumatized. There is oblique lucency across the base of the nasal bones concerning for a fracture (CT #[address]/CT head/brain wo IV con IMPRESSION: No acute intracranial abnormality. Suspected nasal bone fracture. Electronically signed by: Fredrick Weeks MD 04/01/2025 02:37 PM EST Dictated By: Fredrick Weeks MD Findings: No fractures or dislocations. Moderate degenerative disease with joint space narrowing and osteophytosis. No erosions. No radiopaque foreign body. IMPRESSION: 1. No acute findings. Moderate DJD. This document has been electronically signed by: Sonia Silveira MD on 04/01/2025 19:28:38 Dictated By: Sonia Silveira MD Critical Care Time Critical Care Time Critical Care Time: Yes Total Critical Care Time: 45 Attestation: I have personally provided critical care time exclusive of time spent on separately billable procedures. Time includes review of lab data, radiology results, discussion with consultants, and monitoring for potential decompensation. Intervention performed as documented. Discharge Plan Discharge Clinical Impression: Elevation of levels of liver transaminase levels, Alcohol withdrawal, Suicidal ideation, Fracture of nasal bone, Elevated triglycerides with high cholesterol Patient Disposition: Admitted As Inpatient Discharge Date/Time: 04/01/25 23:13
--- NOTE | 2025-04-01 12:27 | ECG_ITS ---
Test Reason : ETOH WD Blood Pressure : */* mmHG Vent. Rate : 111 BPM Atrial Rate : 111 BPM P-R Int : 148 ms QRS Dur : 90 ms QT Int : 318 ms P-R-T Axes : 81 88 68 degrees QTcB Int : 432 ms Sinus tachycardia Otherwise normal ECG When compared with ECG of 19-Dec-2024 16:08, No significant change was found Referred By: Bessie Street Electronically Signed By: CHUCK HENDRICKSON MD
[2025-04-01 13:32] LABS: INTERNATIONAL NORM RATIO 1.0 (0.9-1.1); Prothrombin Time 12.4 SEC (11.2-13.5)
[2025-04-01 13:41] LABS: Resp Syncy Virus RNA Qual PCR NEGATIVE (Negative); SARS COV2 PCR INHOUSE NEGATIVE (Negative)
--- NOTE | 2025-04-01 14:08 | ECG_ITS ---
Test Reason : CP Blood Pressure : */* mmHG Vent. Rate : 109 BPM Atrial Rate : 109 BPM P-R Int : 138 ms QRS Dur : 96 ms QT Int : 338 ms P-R-T Axes : 61 65 52 degrees QTcB Int : 455 ms Sinus tachycardia Otherwise normal ECG When compared with ECG of 01-Apr-2025 12:37, No significant change was found Referred By: Vivi Gomez Electronically Signed By: CHUCK HENDRICKSON MD
[2025-04-01] MEDS: PHENobarbitaL sodium 130 MG/ML IM ONCE 275 MG IM (15:30)
[2025-04-01 15:56] LABS: Chloride 97 mmol/L (96-108); Magnesium 1.4 mg/dL (1.6-2.6); Potassium 3.9 mmol/L (3.3-5.1); Sodium 130 mmol/L (135-145)
[2025-04-01 15:57] LABS: Alanine Aminotransferase 293 U/L (0-40); Albumin Level 3.7 g/dL (3.5-5.0); Alkaline Phosphatase 153 U/L (39-117); Aspartate Amino Transferase 1323 U/L (5-37); Blood Urea Nitrogen 17 mg/dL (9-16); Calcium 8.0 mg/dL (8.4-10.2); Creatinine Clr Calc Pharmacy 76.6; Estimated Glomerular Filt Rate > 60; Total Protein 6.9 g/dL (6.5-8.0)
[2025-04-01 16:07] LABS: Imm Gran Abs Auto 0.01 X10*3/uL (0.00-0.03); Imm Gran Pct Auto 0.5 % (0.0-0.4); Lymphocytes Absolute Auto 0.4 X10*3/uL (1.2-4.9); MANUAL DIFF FLAG SCAN; Mean Corpuscular HGB Conc 37.2 g/dl (31.0-36.0); Mean Corpuscular Hemoglobin 31.2 pg (27.0-33.0); Mean Corpuscular Volume 83.9 fL (80.0-98.0); NRBC Abs Auto 0.000 X10*3/uL (0.0-0.012); NRBC Pct Auto 0.0 /100WBC (0.0-0.2); SCAN SMEAR FLAG 1
[2025-04-01 16:10] LABS: Carbon Dioxide < 5 mmol/L (22-29); Hematocrit 39.0 % (42.0-52.0); Hemoglobin 14.5 g/dl (14.0-18.0); Platelet Count 220 X10*3/uL (160-400); Red Blood Count 4.65 X10*6/uL (4.60-5.80); White Blood Count 11.0 X10*3/uL (4.8-10.8)
[2025-04-01 16:24] LABS: MANUAL DIFF FLAG NO
[2025-04-01 16:29] LABS: VBG HCO3 17 mmol/L (22-26); VBG O2 % Saturation 74.0 %
[2025-04-01 16:30] LABS: Hematocrit 42.0 % (42.0-52.0); Hemoglobin 15.7 g/dl (14.0-18.0); Imm Gran Abs Auto 0.06 X10*3/uL (0.00-0.03); Imm Gran Pct Auto 0.5 % (0.0-0.4); Lymphocytes Absolute Auto 2.6 X10*3/uL (1.2-4.9); Mean Corpuscular HGB Conc 37.4 g/dl (31.0-36.0); Mean Corpuscular Hemoglobin 32.0 pg (27.0-33.0); Mean Corpuscular Volume 85.5 fL (80.0-98.0); NRBC Abs Auto 0.000 X10*3/uL (0.0-0.012); NRBC Pct Auto 0.0 /100WBC (0.0-0.2); Platelet Count 199 X10*3/uL (160-400); Red Blood Count 4.91 X10*6/uL (4.60-5.80); White Blood Count 11.4 X10*3/uL (4.8-10.8)
[2025-04-01 16:31] LABS: Appearance Urine Cloudy; Glucose Urine UA Negative (Negative); PH 5.5 (5.0-9.0); Specific Gravity - Urine 1.010 (1.005-1.025); UMIC TRIGGER UACC YES
[2025-04-01 16:32] LABS: INTERNATIONAL NORM RATIO 1.0 (0.9-1.1); Prothrombin Time 12.8 SEC (11.2-13.5)
[2025-04-01 16:32] LABS: Venous Blood Gas Refer to POC result
[2025-04-01 16:37] LABS: Cannabinoid Screen Urine Not Detected (Not Detect)
[2025-04-01 16:46] LABS: Troponin-I High Sensitivity 10.9 ng/L (<3.5-35.0)
[2025-04-01] MEDS: PHENobarbitaL sodium 130 MG/ML IM ONCE IM (17:15)
[2025-04-01 17:26] LABS: Alanine Aminotransferase 293 U/L (0-40); Albumin Level 3.7 g/dL (3.5-5.0); Alkaline Phosphatase 154 U/L (39-117); Aspartate Amino Transferase 1294 U/L (5-37); Blood Urea Nitrogen 17 mg/dL (9-16); Calcium 8.0 mg/dL (8.4-10.2); Chloride 99 mmol/L (96-108); Creatinine Clr Calc Pharmacy 74.2; Estimated Glomerular Filt Rate 59; Lipase 19 U/L (8-78); Magnesium 1.5 mg/dL (1.6-2.6); Potassium 3.9 mmol/L (3.3-5.1); Sodium 131 mmol/L (135-145); Total Protein 6.8 g/dL (6.5-8.0)
[2025-04-01] MEDS: Magnesium Sulfate/H2O 2 GM/50 ML PIGGYBACK IV ×2 (17:51→23:30)
[2025-04-01] MEDS: diazePAM 10 MG/2 ML CARTRIDGE IVPUSH ×2 (17:52→21:04)
[2025-04-01 19:02] LABS: Cholesterol 702 mg/dL (<200); HDL Cholesterol 24 mg/dL (>40); Triglycerides 5253 mg/dL (<150)
[2025-04-01] MEDS: PHENobarbitaL sodium 130 MG/ML VIAL IM Q3Hx2 310 MG IM ×2 (19:57→23:42)
[2025-04-01 21:06] LABS: VBG HCO3 19 mmol/L (22-26); VBG O2 % Saturation 93.0 %
[2025-04-01 21:07] LABS: Venous Blood Gas Refer to POC result
[2025-04-01 21:24] LABS: Troponin-I High Sensitivity 11.9 ng/L (<3.5-35.0)
[2025-04-01 21:58] LABS: Anion Gap 17 (12-20); Blood Urea Nitrogen 15 mg/dL (9-16); Calcium 7.6 mg/dL (8.4-10.2); Creatinine Clr Calc Pharmacy 84.4; Estimated Glomerular Filt Rate > 60
[2025-04-01] MEDS: iohexoL 350 MG/ML 100 ML INFUS..BTL IV (22:15)
--- NOTE | 2025-04-01 22:26 | P.HPCC_ITS ---
History of Present Illness Date of Service: 04/01/25 Attending physician on admission: Mehran Mejía Chief Complaint: Acute hypertriglyceremia, Acute Alchol Intox / withdrawal risk 64-year-old male with underlying history of anxiety and depression, who presented to the emergency room with suicidal ideations.? He also has a history of hypertension, hyperlipidemia, type 2 diabetes, alcohol abuse.? Reportedly the patient has started to have suicidal thoughts 3-4 days ago however did not have a plan.? He drinks hard liquor daily 5-6 nips last being in the morning prior to coming to the emergency room.? Reportedly has had recurrent falls, felt shaky and as if he was going to go into withdrawal.? The patient has not taken any of his medications for about a week.? Although initially he denied, he subsequently stated that he has epigastric discomfort 11/28, localized, nonradiating, sharp in nature coming in waves.? This was associated with some diarrhea but no melena or hematochezia. In the emergency room, his workup reveal a white count of 11.0, H and H of 14 and 39 respectively, sodium 130, potassium 3.9, chloride 97, carbon dioxide less than 5, BUN 17, creatinine 1.2, GFR more than 60.? Magnesium 1.4, SGOT 1323, ALT 293, alk-phos 153, triglycerides 5253, cholesterol 7 O2, HDL 24, TSH 5.31.? Urinalysis shows proteinuria, urine toxic screen was negative however alcohol level was 146.? Respiratory panel was negative.? Given his eminent signs of withdrawal the patient was started on phenobarbital, was given 2 L of IV fluid, Valium and magnesium replacement.? The patient's lipase was normal.? CT of the abdomen and pelvis shows no evidence of pancreatitis.? Other images done including chest x-ray, left shoulder x-ray showed no fracture.? Head CT shows no acute intracranial pathology with suspected nasal bone fracture.? The patient is transferred to the ICU for insulin infusion. Review of Systems 2 Review of Systems: Review of systems: As above, otherwise the patient denies any prior history of strokes, cold intolerance, migraine headaches, head trauma, no eyes, ears or nose problems, no problems swallowing or with phonation, no thyroid disease, denies any history of chest pain, palpitations, coronary disease, cough, sputum production, pneumonia, bronchitis, COPD or emphysema, no melena, hematochezia, hematemesis, hematuria, kidney stones, immunocompromise state of any kind, no history of DVT or PE, leg edema, fractures or extremity surgeries all other review of systems were reviewed and they were all negative. [facility] Past Medical History Medical History Fatigue Social History Social History Household Members: Spouse Housing: House Do you presently have visiting nurse or other home services: No Alcohol intake: current Alcohol intake frequency: 3 or more drinks per day Alcohol type: hard liquor Comment: sitter in room Patient Tobacco Use Status: Never used Tobacco Smoked in Last 30 Days: No Use of substances other than those prescribed or required for medical reasons: No Currently Displaying Signs/Symptoms of Drug Intoxication Withdrawal: No Advance Directives: Yes Advance Directives Information Provided: Yes Advance Directives on File: Yes Advance Directives Date on File: 04/02/25 Do you have a plan to hurt others: No Plan Recently lost weight without trying: Unsure service: No Sexual orientation: Straight/Heterosexual Meds Allergies Allergy/AdvReac Type Severity Reaction Status Date / Time No Known Allergies Allergy Verified 04/01/25 12:28 Active Medications: Current Medications Dextrose (Dextrose 50 % 25 Gm/50 Ml Syringe) 25 gm IVPUSH Q30M PRN PRN Reason: BG < 70 Insulin Human Regular (Myxredlin) 100 unit in 100 mls @ 4 mls/hr IVCONT .Q24H [facility]; Protocol Dextrose/Lactated Ringer's (D5lr) 1,000 mls @ 100 mls/hr IVCONT .Q10H PAYAM Magnesium Sulfate (Magnesium Sulfate/H2o) 2 gm in 50 mls @ 25 mls/hr IV ONCE ONE Stop: 04/02/25 00:09 Calcium Gluconate (Calcium Gluconate) 2 gm in 100 mls @ 50 mls/hr IV ONCE ONE Stop: 04/02/25 00:16 Pharmacy Consult (Consult Rx Etoh Phenob Im/Po) 1 each MISCELLANE ONCE PRN; Protocol PRN Reason: Consult order Phenobarbital (Phenobarbital 15 Mg Tablet) 45 mg PO BID [facility]YAM; Protocol Stop: 04/03/25 21:01 Phenobarbital (Phenobarbital 30 Mg Tablet) 30 mg PO BID [facility]; Protocol Stop: 04/05/25 21:01 Phenobarbital (Phenobarbital 30 Mg Tablet) 30 mg PO DAILY [facility]; Protocol Stop: 04/07/25 09:01 Phenobarbital Sodium (Phenobarbital Sodium 130 Mg/Ml Vial Im Q3hx2) 310 mg IM Q3H [facility]; Protocol Stop: 04/01/25 23:16 Last Admin: 04/01/25 19:57 Dose: 310 mg Home Medications ?Medication ?Instructions ?Recorded ?Confirmed ?Last Taken ?Type ezetimibe 10 mg tablet 10 mg PO DAILY 12/19/2403/2203/23/25 History omega-3 acid ethyl esters 1 gram 2 cap PO BID 12/19/24 04/02/25 03/23/25 History capsule rosuvastatin 20 mg tablet 20 mg PO DAILY 12/19/2403/2203/23/25 History amlodipine 10 mg tablet 10 mg PO DAILY 01/31/2503/2203/23/25 History fenofibrate 160 mg tablet 160 mg PO DAILY 01/31/2505/1503/23/25 History [id number] 300 mcg-K 60 1 tab PO DAILY 01/31/25 04/02/25 03/23/25 History mcg-lycop 600 mcg-lutein 300 mcg tablet (Centrum Silver Men) topiramate 50 mg tablet 50 mg PO BEDTIME 01/31/2503/23/25 History trazodone 100 mg tablet 100 mg PO BEDTIME insomnia 1 06/02/24 04/02/25 03/23/25 History Physical Exam 2 Vital Signs: Vital Signs: Last Vital Signs Temp 97.3 F 04/01/25 22:03 Pulse 104 H 04/01/25 22:03 Resp 16 04/01/25 22:03 BP 152/80 H 04/01/25 22:03 Pulse Ox 96 04/01/25 22:03 O2 Del Method Room Air 04/01/25 22:03 BMI result Body Mass Index 37.7 General:? Alert oriented x3 no acute distress. No accessory muscle usage.? Following all commands.? He does appear to be quite shaky, anxious. Skin:? Left shoulder bruising. Intact, no lesions, edema, erythema, clubbing or cyanosis.? No ulcers. HEENT:? Head is normocephalic, atraumatic, pupils equal. Buccal mucosa is dry.? No bruits Cardiac:? Tachycardic 105 beats per minute, clear S1-S2, no murmurs rubs or gallops. ? Pulmonary:? Diminished lung sounds bilaterally fine expiratory wheezing bilaterally .? No crackles, rales or rhonchi. Abdomen:? Protuberant, positive but diminished bowel sounds in all 4 quadrants.? Soft, nontender, no rebound or guarding.? Musculoskeletal:? Moving all 4 extremities upon request a major joints, there is no crepitus or tenderness.? The strength is 5/5 bilaterally and throughout all 4 extremities.? There is no leg edema , no calf tenderness , no leg asymmetry.? Gait not assessed at this point. Neurologic:? As above.? No focal deficits noted. Vascular:? 2+ pulses upper and lower extremities distally.? Less than 2nd capillary refill of fingers and toes bilaterally upper and lower extremities Results Labs 04/01/25 22:43 04/02/25 04:17 Labs: Laboratory Results - last 24 hr 04/01/25 04/01/25 04/01/25 12:51 12:52 14:33 MCV 83.9 MCH 31.2 MCHC 37.2 H RDW 13.4 Plt Count 220 MPV 9.5 Immature Gran % (Auto) 0.5 H Neut % (Auto) 71.9 Lymph % (Auto) 18.1 L [place] % (Auto) 9.5 Eos % (Auto) 0.0 Baso % (Auto) 0.0 Lymph # (Auto) 0.4 L [place] # (Auto) 0.2 Eos # (Auto) 0.0 Baso # (Auto) 0.0 Abs Immat Gran (auto) 0.01 Absolute Neuts (auto) 1.6 L Absolute Nucleated RBC 0.000 Nucleated RBC % (auto) 0.0 Smear Tech's Comments VERIFIED PT 12.4 INR 1.0 VBG pH VBG pCO2 VBG pO2 VBG HCO3 VBG O2 Saturation VBG Base Excess Anion Gap TNP Estim Creat Clear Calc 76.6 Estimated GFR > 60 Random Glucose 114 Lactic Acid Calcium 8.0 L D Phosphorus Magnesium 1.4 L* Total Bilirubin 1.0 AST 1323 H ALT 293 H Alkaline Phosphatase 153 H Troponin I High Sens Total Protein 6.9 Albumin 3.7 Triglycerides Cholesterol LDL Cholesterol, Calc HDL Cholesterol Lipase Urine Color Urine Appearance Urine pH Ur Specific [place] Urine Protein Urine Glucose (UA) Urine Ketones Urine Blood Urine Nitrite Ur Leukocyte Esterase Urine RBC Urine WBC Ur Squamous Epith Cells Urine Bacteria Hyaline Casts Urine Opiates Screen Ur Buprenorphine Scrn Ur Oxycodone Screen Urine Methadone Screen Urine Fentanyl Screen Ur Barbiturates Screen Ur Phencyclidine Scrn Ur Amphetamines Screen U Benzodiazepines Scrn Urine Cocaine Screen U Marijuana (THC) Screen Ethyl Alcohol 146 Influenza Type A (PCR) NEGATIVE Influenza Type B (PCR) NEGATIVE RSV RNA Qual (PCR) NEGATIVE SARS-CoV-2 RNA (RT-PCR) NEGATIVE 04/01/25 04/01/25 04/01/25 14:33 16:16 16:24 MCV 85.5 MCH 32.0 MCHC 37.4 H RDW 13.5 Plt Count 199 MPV 9.4 Immature Gran % (Auto) 0.5 H Neut % (Auto) 68.4 Lymph % (Auto) 22.9 [place] % (Auto) 8.1 Eos % (Auto) 0.0 Baso % (Auto) 0.1 Lymph # (Auto) 2.6 [place] # (Auto) 0.9 Eos # (Auto) 0.0 Baso # (Auto) 0.0 Abs Immat Gran (auto) 0.06 H Absolute Neuts (auto) 7.8 Absolute Nucleated RBC 0.000 Nucleated RBC % (auto) 0.0 Smear Tech's Comments PT 12.8 INR 1.0 VBG pH 7.40 VBG pCO2 28 VBG pO2 61 VBG HCO3 17 L VBG O2 Saturation 74.0 VBG Base Excess -5.1 Anion Gap TNP Estim Creat Clear Calc 74.2 Estimated GFR 59 Random Glucose 130 H Lactic Acid Calcium 8.0 L Phosphorus Magnesium 1.5 L Total Bilirubin 1.0 AST 1294 H ALT 293 H Alkaline Phosphatase 154 H Troponin I High Sens 10.9 Total Protein 6.8 Albumin 3.7 Triglycerides 5253 H Cholesterol 702 H LDL Cholesterol, Calc TNP HDL Cholesterol 24 L Lipase 19 Urine Color Dark Yellow Urine Appearance Cloudy Urine pH 5.5 Ur Specific [place] 1.010 Urine Protein 100 (2+) H Urine Glucose (UA) Negative Urine Ketones Negative Urine Blood Large (3+) H Urine Nitrite Negative Ur Leukocyte Esterase Negative Urine RBC >20 H Urine WBC 0-5 Ur Squamous Epith Cells 0-2 Urine Bacteria None Seen Hyaline Casts 11-20 Urine Opiates Screen Not Detected Ur Buprenorphine Scrn Not Detected Ur Oxycodone Screen Not Detected Urine Methadone Screen Not Detected Urine Fentanyl Screen Not Detected Ur Barbiturates Screen Not Detected Ur Phencyclidine Scrn Not Detected Ur Amphetamines Screen Not Detected U Benzodiazepines Scrn Not Detected Urine Cocaine Screen Not Detected U Marijuana (THC) Screen Not Detected Ethyl Alcohol Cancelled Influenza Type A (PCR) Influenza Type B (PCR) RSV RNA Qual (PCR) SARS-CoV-2 RNA (RT-PCR) 04/01/25 04/01/25 20:53 21:01 MCV MCH MCHC RDW Plt Count MPV Immature Gran % (Auto) Neut % (Auto) Lymph % (Auto) [place] % (Auto) Eos % (Auto) Baso % (Auto) Lymph # (Auto) [place] # (Auto) Eos # (Auto) Baso # (Auto) Abs Immat Gran (auto) Absolute Neuts (auto) Absolute Nucleated RBC Nucleated RBC % (auto) Smear Tech's Comments PT INR VBG pH 7.43 VBG pCO2 27 VBG pO2 71 VBG HCO3 19 L VBG O2 Saturation 93.0 VBG Base Excess -3.5 Anion Gap 17 Estim Creat Clear Calc 84.4 Estimated GFR > 60 Random Glucose 105 Lactic Acid 3.3 H* Calcium 7.6 L Phosphorus 3.0 Magnesium Total Bilirubin AST ALT Alkaline Phosphatase Troponin I High Sens 11.9 Total Protein Albumin Triglycerides Cholesterol LDL Cholesterol, Calc HDL Cholesterol Lipase Urine Color Urine Appearance Urine pH Ur Specific [place] Urine Protein Urine Glucose (UA) Urine Ketones Urine Blood Urine Nitrite Ur Leukocyte Esterase Urine RBC Urine WBC Ur Squamous Epith Cells Urine Bacteria Hyaline Casts Urine Opiates Screen Ur Buprenorphine Scrn Ur Oxycodone Screen Urine Methadone Screen Urine Fentanyl Screen Ur Barbiturates Screen Ur Phencyclidine Scrn Ur Amphetamines Screen U Benzodiazepines Scrn Urine Cocaine Screen U Marijuana (THC) Screen Ethyl Alcohol Influenza Type A (PCR) Influenza Type B (PCR) RSV RNA Qual (PCR) SARS-CoV-2 RNA (RT-PCR) Imaging Radiologist's Impressions: Impressions Head CT 04/01/25 14:02 IMPRESSION: No acute intracranial abnormality. Suspected nasal bone fracture. Electronically signed by: Fredrick Weeks MD 04/01/2025 02:37 PM EST RP Chest X-Ray 04/01/25 14:13 IMPRESSION: No acute airspace disease. Electronically signed by: Maynor Song MD 04/01/2025 02:21 PM EST RP Assessment and Plan (1) Hypertriglyceridemia: Status: Acute Plan ASSESSMENT : 1.Acute alcohol withdrawal 2. Acute alcohol intoxication 3. Severe hypertriglyceridemia without evidence of pancreatitis 4. Severe mixed hyperlipidemia 5. Acute lactic and metabolic acidosis due to all the above, there is no evidence of infection thus no sepsis 6. Acute hepatitis likely on chronic disease due to alcohol intake 7. Morbid obesity 8. Medical noncompliance 9. Uncontrolled depression 10. Suicidal ideation 11. Acute hypovolemic hyponatremia 12. Acute hypo magnesemia 13. Acute hypocalcemia with corrected calcium of 7.84 14. Elevated TSH rule out hypothyroidism, sick euthyroid or euthyroid syndrome 15. Proteinuria 16.uncontrolled hypertension 17.Medical noncompliance 18. Drug seeking behavior PLAN OF CARE: The patient was admitted to the ICU, monitor vital signs, I's and o's, , NPO, we will continue with phenobarbital treatment, his CIWA score is currently 11 which has come down, 1-1 sitter, insulin drip at 0.05 u/kg/hr; we will add D5 LR to ensure the patient does not go hypoglycemic or hypokalemic.? Check fasting lipid profile in the morning, monitor lactic acid, hepatitis panel is pending, psychiatric evaluation, repeat laboratories in the morning and replace magnesium and calcium.? Check free T3 and T4.? Lopressor IV prn HTN.? Triglycerides daily.? Start him on thiamine, folic acid. Toradol for pain, the patient is specifically asking for Dilaudid which I kindly explained to the patient that I do not have a medical reason to prescribe this medication, he went back to sleep and has not complaint all night about again GI PROPHYLAXIS:? IV ppi DVT PROPHYLAXIS:? Heparin subQ q.8 hours This patient counter and care had a high probability of a clinically significant, sudden, or life threatening deterioration of this patient's condition which required my full and direct attention, intervention and personal management. Critical care time used for critical evaluation of this patient, diagnosis, treatment and coordination of care, review her records and documentation TOTAL CRITICAL CARE TIME? 90 MIN . discussion and coordination with consultants, completely separate from any procedures performed. Patient's care was discussed in detail with Dr. Mejía who is aware of all the above as well as the plan of care for this patient.
[2025-04-01 22:27] LABS: Carbon Dioxide 18 mmol/L (22-29); Chloride 99 mmol/L (96-108); Potassium 4.1 mmol/L (3.3-5.1); Sodium 130 mmol/L (135-145)
[2025-04-01 22:31] LABS: Glucose, Whole Blood 115 mg/dL (60-115)
[2025-04-01] MEDS: Dextrose 5 % and Lactated Ring 1,000 ML 100 ML IVCONT (22:44)
[2025-04-01] MEDS: Insulin Regular/NS 100 UNIT/100 ML PLAST..BAG IVCONT (22:44)
[2025-04-01] MEDS: Thiamine HCL 100 MG in 0.9 % Sodium Chloride 100 ML 202 MG IV (22:48)
[2025-04-01 22:52] LABS: MANUAL DIFF FLAG NO
[2025-04-01 22:54] LABS: Hematocrit 36.9 % (42.0-52.0); Hemoglobin 13.5 g/dl (14.0-18.0); Imm Gran Abs Auto 0.06 X10*3/uL (0.00-0.03); Imm Gran Pct Auto 0.7 % (0.0-0.4); Lymphocytes Absolute Auto 2.2 X10*3/uL (1.2-4.9); Mean Corpuscular HGB Conc 36.6 g/dl (31.0-36.0); Mean Corpuscular Hemoglobin 31.3 pg (27.0-33.0); Mean Corpuscular Volume 85.6 fL (80.0-98.0); NRBC Abs Auto 0.000 X10*3/uL (0.0-0.012); NRBC Pct Auto 0.0 /100WBC (0.0-0.2); Platelet Count 144 X10*3/uL (160-400); Red Blood Count 4.31 X10*6/uL (4.60-5.80); White Blood Count 8.2 X10*3/uL (4.8-10.8)
--- NOTE | 2025-04-01 22:54 | HO.NURTONUR ---
Report given to [facility], questions answered. Awaiting transport.
[2025-04-01 22:59] LABS: Reflex Lactate? Lactic Acid Added
[2025-04-01 23:18] LABS: Glucose, Whole Blood 123 mg/dL (60-115)
[2025-04-01] MEDS: Calcium Gluconate/NaCl,Iso-Osm 2 GM/100 ML PLAST..BAG IV (23:34)
[2025-04-01 23:49] LABS: ~Lactic Acid-LAB USE ONLY 2.2 mmol/L (0.5-2.0)
[2025-04-01 23:56] LABS: Free T4 (Free Thyroxine) 0.95 ng/dL (0.71-1.85)
[2025-04-02] VITALS (25 sets, daily range): BP systolic 106–161; BP diastolic 56–94; PULSE 74–100; RESP 14–40; TEMP 36.4–36.6; O2SAT 93–99; BMI 37.9
[2025-04-02 00:36] LABS: Glucose, Whole Blood 101 mg/dL (60-115)
[2025-04-02 01:29] LABS: Reflex Lactate? 2 Y
[2025-04-02 02:07] LABS: ~Lactic Acid-LAB USE ONLY 1.5 mmol/L (0.5-2.0)
[2025-04-02 02:43] LABS: Glucose, Whole Blood 116 mg/dL (60-115)
[2025-04-02 04:44] LABS: Glucose, Whole Blood 94 mg/dL (60-115)
[2025-04-02 04:56] LABS: HBS Num1 0.00 mIU/mL (0-7.99); HBc Num1 0.07 S/CO (0.00-0.79); HBsAGNum1 0.45 S/CO (0.00-0.99); Hepatitis A Antibody IgM 0.18 Index (0-0.79); Hepatitis B Surface Antigen Negative (Negative); ~HepC Num1 0.09 S/CO (0.00-0.79); ~Hepatitis A Antibody IgM Nonreactive (Nonreactive); ~Hepatitis B Surface Antibody NONREACTIVE (Nonreactive); ~Hepatitis C Antibody Nonreactive (Nonreactive)
[2025-04-02 05:47] LABS: Alanine Aminotransferase 229 U/L (0-40); Albumin Level 3.2 g/dL (3.5-5.0); Alkaline Phosphatase 110 U/L (39-117); Anion Gap 20 (12-20); Aspartate Amino Transferase 977 U/L (5-37); Blood Urea Nitrogen 15 mg/dL (9-16); Calcium 8.1 mg/dL (8.4-10.2); Carbon Dioxide 14 mmol/L (22-29); Chloride 104 mmol/L (96-108); Creatinine Clr Calc Pharmacy 104.8; Estimated Glomerular Filt Rate > 60; Magnesium 2.3 mg/dL (1.6-2.6); Potassium 3.8 mmol/L (3.3-5.1); Sodium 134 mmol/L (135-145); Total Protein 6.3 g/dL (6.5-8.0)
--- NOTE | 2025-04-02 06:03 | PC.NURSE ---
Patient arrived to ICU at approx 2300 with transport and [facility] ED RN. Patient A&Ox4, anxious and reporting upper abdominal pain but able to correctly give name, date, place, and situation. Patient now denies active SI, but 1-1 sitter remains at bedside within arms reach. SR/ST on tele, 100s-120s initially. MARY Gill aware of HR and BPs (SBP > 150) and PRN Lopressor IVP ordered and administered with good effect: HR 80s-90s, SBP < 150, see vitals flowsheet). Lung sounds diminished to bilateral bases, with deep RR. 2L NC applied for O2 saturation > 90%. Abdomen large and round, patient reports tenderness and pain to bilateral upper quadrants. Per MARY Gill, patient to remain NPO with sips of water for pills and ice chips. Insulin gtt running per JUL and titrated per MARY Gill. Patient able to void on own using a urinal, placed within patient reach. Skin moist in areas, with scattered abrasions and bruises present on admission. Patient reports?that these are a result of his falls at home. Bed locked in lowest position, bed alarm on. Patient?repositioned as tolerated, 1-1 sitter at bedside for patient safety.
[2025-04-02 06:05] LABS: Triglycerides 3531 mg/dL (<150)
[2025-04-02 06:39] LABS: Glucose, Whole Blood 86 mg/dL (60-115)
[2025-04-02 08:09] LABS: Glucose, Whole Blood 89 mg/dL (60-115)
[2025-04-02] MEDS: OLANZapine 10 MG VIAL IM (08:40)
[2025-04-02] MEDS: Dextrose 5 % and Lactated Ring 1,000 ML 100 ML IVCONT (08:46)
--- NOTE | 2025-04-02 08:46 | PHA.MEDREC ---
Pharmacy Consult ? Medication Reconciliation Pharmacy has completed the medication reconciliation. Spoke to patient to confirm medication list. Patient was able to name his medications and confirmed he is not taking modafinil. Per patient, last dose of medications was 10 days ago.
--- NOTE | 2025-04-02 08:55 | PM.CCPN ---
Subjective Subjective Date of Service: 04/02/25 Interval History: Complains of anxiety and abdominal pain Sitting on the edge of the bed Critical Care Time (minutes): 35 Physical Exam Vital Signs: Vital Signs: Last Vital Signs Temp 97.8 F 04/02/25 05:00 Pulse 94 04/02/25 08:00 Resp 16 04/02/25 08:00 BP 150/87 H 04/02/25 08:00 Pulse Ox 97 04/02/25 08:00 O2 Del Method Nasal Cannula 04/02/25 08:00 O2 Flow Rate 2 04/02/25 08:00 BMI result Body Mass Index 37.9 General: Elderly male in mild to moderate acute distress, anxious, sitting on the edge of the bed Nutritional Appearance: well nourished and overweight Eyes: appearance normal, both eyes and all related structures; Alignment and Position: alignment normal and position normal Neck: No lymphadenopathy, no thyromegaly Resp: bilateral air entry equal, occasional added sounds present Cardio: Regular rate, regular rhythm; Heart sounds: S1 normal heart sound present and S2 normal heart sound present GI: soft, nontender, no guarding, no hepatosplenomegaly : bladder normal to inspection, bladder normal to palpation, no renal angle tenderness Skin: no rashes or lesions noted and elasticity normal Neuro: oriented to person, oriented to place, oriented to time and moves all extremities Objective Data Labs 04/01/25 22:43 04/02/25 04:17 Labs: Laboratory Results - last 24 hr 04/01/25 04/01/25 04/01/25 12:51 12:52 14:33 WBC 11.0 H RBC 4.65 Hgb 14.5 Hct 39.0 L MCV 83.9 MCH 31.2 MCHC 37.2 H RDW 13.4 Plt Count 220 MPV 9.5 Immature Gran % (Auto) 0.5 H Neut % (Auto) 71.9 Lymph % (Auto) 18.1 L [place] % (Auto) 9.5 Eos % (Auto) 0.0 Baso % (Auto) 0.0 Lymph # (Auto) 0.4 L [place] # (Auto) 0.2 Eos # (Auto) 0.0 Baso # (Auto) 0.0 Abs Immat Gran (auto) 0.01 Absolute Neuts (auto) 1.6 L Absolute Nucleated RBC 0.000 Nucleated RBC % (auto) 0.0 Smear Tech's Comments VERIFIED PT 12.4 INR 1.0 VBG pH VBG pCO2 VBG pO2 VBG HCO3 VBG O2 Saturation VBG Base Excess Sodium 130 L Potassium 3.9 Chloride 97 Carbon Dioxide < 5 L* D Anion Gap TNP BUN 17 H Creatinine 1.20 Estim Creat Clear Calc 76.6 Estimated GFR > 60 POC Glucose Random Glucose 114 Estimat Average Glucose Hemoglobin A1c % Lactic Acid Lactic Acid F/U @ 2Hr Lactic Acid F/U @ 4Hr Calcium 8.0 L D Phosphorus Magnesium 1.4 L* Total Bilirubin 1.0 AST 1323 H ALT 293 H Alkaline Phosphatase 153 H Troponin I High Sens Total Protein 6.9 Albumin 3.7 Triglycerides Cholesterol LDL Cholesterol, Calc HDL Cholesterol Lipase TSH Free T4 Urine Color Urine Appearance Urine pH Ur Specific [place] Urine Protein Urine Glucose (UA) Urine Ketones Urine Blood Urine Nitrite Ur Leukocyte Esterase Urine RBC Urine WBC Ur Squamous Epith Cells Urine Bacteria Hyaline Casts Urine Opiates Screen Ur Buprenorphine Scrn Ur Oxycodone Screen Urine Methadone Screen Urine Fentanyl Screen Ur Barbiturates Screen Ur Phencyclidine Scrn Ur Amphetamines Screen U Benzodiazepines Scrn Urine Cocaine Screen U Marijuana (THC) Screen Ethylene Glycol Ethyl Alcohol 146 Hepatitis A IgM Ab Hep Bs Antigen Hep Bs Antibody Hep B Core Total Ab Hepatitis C Ab (EIA) Influenza Type A (PCR) NEGATIVE Influenza Type B (PCR) NEGATIVE RSV RNA Qual (PCR) NEGATIVE SARS-CoV-2 RNA (RT-PCR) NEGATIVE 04/01/25 04/01/25 04/01/25 14:33 16:16 16:24 WBC 11.4 H RBC 4.91 Hgb 15.7 Hct 42.0 MCV 85.5 MCH 32.0 MCHC 37.4 H RDW 13.5 Plt Count 199 MPV 9.4 Immature Gran % (Auto) 0.5 H Neut % (Auto) 68.4 Lymph % (Auto) 22.9 [place] % (Auto) 8.1 Eos % (Auto) 0.0 Baso % (Auto) 0.1 Lymph # (Auto) 2.6 [place] # (Auto) 0.9 Eos # (Auto) 0.0 Baso # (Auto) 0.0 Abs Immat Gran (auto) 0.06 H Absolute Neuts (auto) 7.8 Absolute Nucleated RBC 0.000 Nucleated RBC % (auto) 0.0 Smear Tech's Comments PT 12.8 INR 1.0 VBG pH 7.40 VBG pCO2 28 VBG pO2 61 VBG HCO3 17 L VBG O2 Saturation 74.0 VBG Base Excess -5.1 Sodium 131 L Potassium 3.9 Chloride 99 Carbon Dioxide TNP Anion Gap TNP BUN 17 H Creatinine 1.24 Estim Creat Clear Calc 74.2 Estimated GFR 59 POC Glucose Random Glucose 130 H Estimat Average Glucose Hemoglobin A1c % Lactic Acid Lactic Acid F/U @ 2Hr Lactic Acid F/U @ 4Hr Calcium 8.0 L Phosphorus Magnesium 1.5 L Total Bilirubin 1.0 AST 1294 H ALT 293 H Alkaline Phosphatase 154 H Troponin I High Sens 10.9 Total Protein 6.8 Albumin 3.7 Triglycerides 5253 H Cholesterol 702 H LDL Cholesterol, Calc TNP HDL Cholesterol 24 L Lipase 19 TSH Free T4 Urine Color Dark Yellow Urine Appearance Cloudy Urine pH 5.5 Ur Specific [place] 1.010 Urine Protein 100 (2+) H Urine Glucose (UA) Negative Urine Ketones Negative Urine Blood Large (3+) H Urine Nitrite Negative Ur Leukocyte Esterase Negative Urine RBC >20 H Urine WBC 0-5 Ur Squamous Epith Cells 0-2 Urine Bacteria None Seen Hyaline Casts 11-20 Urine Opiates Screen Not Detected Ur Buprenorphine Scrn Not Detected Ur Oxycodone Screen Not Detected Urine Methadone Screen Not Detected Urine Fentanyl Screen Not Detected Ur Barbiturates Screen Not Detected Ur Phencyclidine Scrn Not Detected Ur Amphetamines Screen Not Detected U Benzodiazepines Scrn Not Detected Urine Cocaine Screen Not Detected U Marijuana (THC) Screen Not Detected Ethylene Glycol Ethyl Alcohol Cancelled Hepatitis A IgM Ab Hep Bs Antigen Hep Bs Antibody Hep B Core Total Ab Hepatitis C Ab (EIA) Influenza Type A (PCR) Influenza Type B (PCR) RSV RNA Qual (PCR) SARS-CoV-2 RNA (RT-PCR) 04/01/25 04/01/25 04/01/25 20:53 21:01 22:27 WBC RBC Hgb Hct MCV MCH MCHC RDW Plt Count MPV Immature Gran % (Auto) Neut % (Auto) Lymph % (Auto) [place] % (Auto) Eos % (Auto) Baso % (Auto) Lymph # (Auto) [place] # (Auto) Eos # (Auto) Baso # (Auto) Abs Immat Gran (auto) Absolute Neuts (auto) Absolute Nucleated RBC Nucleated RBC % (auto) Smear Tech's Comments PT INR VBG pH 7.43 VBG pCO2 27 VBG pO2 71 VBG HCO3 19 L VBG O2 Saturation 93.0 VBG Base Excess -3.5 Sodium 130 L Potassium 4.1 Chloride 99 Carbon Dioxide 18 L Anion Gap 17 BUN 15 Creatinine 1.09 Estim Creat Clear Calc 84.4 Estimated GFR > 60 POC Glucose 115 Random Glucose 105 Estimat Average Glucose Hemoglobin A1c % Lactic Acid 3.3 H* Lactic Acid F/U @ 2Hr Lactic Acid F/U @ 4Hr Calcium 7.6 L Phosphorus 3.0 Magnesium Total Bilirubin AST ALT Alkaline Phosphatase Troponin I High Sens 11.9 Total Protein Albumin Triglycerides Cholesterol LDL Cholesterol, Calc HDL Cholesterol Lipase TSH 5.31 H Free T4 0.95 Urine Color Urine Appearance Urine pH Ur Specific [place] Urine Protein Urine Glucose (UA) Urine Ketones Urine Blood Urine Nitrite Ur Leukocyte Esterase Urine RBC Urine WBC Ur Squamous Epith Cells Urine Bacteria Hyaline Casts Urine Opiates Screen Ur Buprenorphine Scrn Ur Oxycodone Screen Urine Methadone Screen Urine Fentanyl Screen Ur Barbiturates Screen Ur Phencyclidine Scrn Ur Amphetamines Screen U Benzodiazepines Scrn Urine Cocaine Screen U Marijuana (THC) Screen Ethylene Glycol Ethyl Alcohol Hepatitis A IgM Ab Nonreactive Hep Bs Antigen Negative Hep Bs Antibody NONREACTIVE Hep B Core Total Ab Nonreactive Hepatitis C Ab (EIA) Nonreactive Influenza Type A (PCR) Influenza Type B (PCR) RSV RNA Qual (PCR) SARS-CoV-2 RNA (RT-PCR) 04/01/25 04/01/25 04/01/25 22:43 23:14 23:18 WBC 8.2 RBC 4.31 L Hgb 13.5 L Hct 36.9 L MCV 85.6 MCH 31.3 MCHC 36.6 H RDW 13.3 Plt Count 144 L D MPV 9.2 L Immature Gran % (Auto) 0.7 H Neut % (Auto) 62.6 Lymph % (Auto) 26.2 [place] % (Auto) 10.1 Eos % (Auto) 0.0 Baso % (Auto) 0.4 Lymph # (Auto) 2.2 [place] # (Auto) 0.8 Eos # (Auto) 0.0 Baso # (Auto) 0.0 Abs Immat Gran (auto) 0.06 H Absolute Neuts (auto) 5.1 Absolute Nucleated RBC 0.000 Nucleated RBC % (auto) 0.0 Smear Tech's Comments PT INR VBG pH VBG pCO2 VBG pO2 VBG HCO3 VBG O2 Saturation VBG Base Excess Sodium Potassium Chloride Carbon Dioxide Anion Gap BUN Creatinine Estim Creat Clear Calc Estimated GFR POC Glucose 123 H Random Glucose Estimat Average Glucose Hemoglobin A1c % Lactic Acid Lactic Acid F/U @ 2Hr 2.2 H* Lactic Acid F/U @ 4Hr Calcium Phosphorus Magnesium Total Bilirubin AST ALT Alkaline Phosphatase Troponin I High Sens Total Protein Albumin Triglycerides Cholesterol LDL Cholesterol, Calc HDL Cholesterol Lipase TSH Free T4 Urine Color Urine Appearance Urine pH Ur Specific [place] Urine Protein Urine Glucose (UA) Urine Ketones Urine Blood Urine Nitrite Ur Leukocyte Esterase Urine RBC Urine WBC Ur Squamous Epith Cells Urine Bacteria Hyaline Casts Urine Opiates Screen Ur Buprenorphine Scrn Ur Oxycodone Screen Urine Methadone Screen Urine Fentanyl Screen Ur Barbiturates Screen Ur Phencyclidine Scrn Ur Amphetamines Screen U Benzodiazepines Scrn Urine Cocaine Screen U Marijuana (THC) Screen Ethylene Glycol NONE DETECTED Ethyl Alcohol Hepatitis A IgM Ab Hep Bs Antigen Hep Bs Antibody Hep B Core Total Ab Hepatitis C Ab (EIA) Influenza Type A (PCR) Influenza Type B (PCR) RSV RNA Qual (PCR) SARS-CoV-2 RNA (RT-PCR) 04/02/25 04/02/25 04/02/25 00:32 01:44 02:35 WBC RBC Hgb Hct MCV MCH MCHC RDW Plt Count MPV Immature Gran % (Auto) Neut % (Auto) Lymph % (Auto) [place] % (Auto) Eos % (Auto) Baso % (Auto) Lymph # (Auto) [place] # (Auto) Eos # (Auto) Baso # (Auto) Abs Immat Gran (auto) Absolute Neuts (auto) Absolute Nucleated RBC Nucleated RBC % (auto) Smear Tech's Comments PT INR VBG pH VBG pCO2 VBG pO2 VBG HCO3 VBG O2 Saturation VBG Base Excess Sodium Potassium Chloride Carbon Dioxide Anion Gap BUN Creatinine Estim Creat Clear Calc Estimated GFR POC Glucose 101 116 H Random Glucose Estimat Average Glucose Hemoglobin A1c % Lactic Acid Lactic Acid F/U @ 2Hr Lactic Acid F/U @ 4Hr 1.5 Calcium Phosphorus Magnesium Total Bilirubin AST ALT Alkaline Phosphatase Troponin I High Sens Total Protein Albumin Triglycerides Cholesterol LDL Cholesterol, Calc HDL Cholesterol Lipase TSH Free T4 Urine Color Urine Appearance Urine pH Ur Specific [place] Urine Protein Urine Glucose (UA) Urine Ketones Urine Blood Urine Nitrite Ur Leukocyte Esterase Urine RBC Urine WBC Ur Squamous Epith Cells Urine Bacteria Hyaline Casts Urine Opiates Screen Ur Buprenorphine Scrn Ur Oxycodone Screen Urine Methadone Screen Urine Fentanyl Screen Ur Barbiturates Screen Ur Phencyclidine Scrn Ur Amphetamines Screen U Benzodiazepines Scrn Urine Cocaine Screen U Marijuana (THC) Screen Ethylene Glycol Ethyl Alcohol Hepatitis A IgM Ab Hep Bs Antigen Hep Bs Antibody Hep B Core Total Ab Hepatitis C Ab (EIA) Influenza Type A (PCR) Influenza Type B (PCR) RSV RNA Qual (PCR) SARS-CoV-2 RNA (RT-PCR) 04/02/25 04/02/25 04/02/25 04:17 04:40 06:36 WBC RBC Hgb Hct MCV MCH MCHC RDW Plt Count MPV Immature Gran % (Auto) Neut % (Auto) Lymph % (Auto) [place] % (Auto) Eos % (Auto) Baso % (Auto) Lymph # (Auto) [place] # (Auto) Eos # (Auto) Baso # (Auto) Abs Immat Gran (auto) Absolute Neuts (auto) Absolute Nucleated RBC Nucleated RBC % (auto) Smear Tech's Comments PT INR VBG pH VBG pCO2 VBG pO2 VBG HCO3 VBG O2 Saturation VBG Base Excess Sodium 134 L Potassium 3.8 Chloride 104 Carbon Dioxide 14 L Anion Gap 20 BUN 15 Creatinine 0.88 Estim Creat Clear Calc 104.8 Estimated GFR > 60 POC Glucose 94 86 Random Glucose 82 Estimat Average Glucose 108 Hemoglobin A1c % 5.4 Lactic Acid Lactic Acid F/U @ 2Hr Lactic Acid F/U @ 4Hr Calcium 8.1 L D Phosphorus 4.0 Magnesium 2.3 Total Bilirubin 1.6 H AST 977 H ALT 229 H Alkaline Phosphatase 110 Troponin I High Sens Total Protein 6.3 L Albumin 3.2 L Triglycerides 3531 H Cholesterol LDL Cholesterol, Calc HDL Cholesterol Lipase TSH Free T4 Urine Color Urine Appearance Urine pH Ur Specific [place] Urine Protein Urine Glucose (UA) Urine Ketones Urine Blood Urine Nitrite Ur Leukocyte Esterase Urine RBC Urine WBC Ur Squamous Epith Cells Urine Bacteria Hyaline Casts Urine Opiates Screen Ur Buprenorphine Scrn Ur Oxycodone Screen Urine Methadone Screen Urine Fentanyl Screen Ur Barbiturates Screen Ur Phencyclidine Scrn Ur Amphetamines Screen U Benzodiazepines Scrn Urine Cocaine Screen U Marijuana (THC) Screen Ethylene Glycol Ethyl Alcohol Hepatitis A IgM Ab Hep Bs Antigen Hep Bs Antibody Hep B Core Total Ab Hepatitis C Ab (EIA) Influenza Type A (PCR) Influenza Type B (PCR) RSV RNA Qual (PCR) SARS-CoV-2 RNA (RT-PCR) 04/02/25 08:05 WBC RBC Hgb Hct MCV MCH MCHC RDW Plt Count MPV Immature Gran % (Auto) Neut % (Auto) Lymph % (Auto) [place] % (Auto) Eos % (Auto) Baso % (Auto) Lymph # (Auto) [place] # (Auto) Eos # (Auto) Baso # (Auto) Abs Immat Gran (auto) Absolute Neuts (auto) Absolute Nucleated RBC Nucleated RBC % (auto) Smear Tech's Comments PT INR VBG pH VBG pCO2 VBG pO2 VBG HCO3 VBG O2 Saturation VBG Base Excess Sodium Potassium Chloride Carbon Dioxide Anion Gap BUN Creatinine Estim Creat Clear Calc Estimated GFR POC Glucose 89 Random Glucose Estimat Average Glucose Hemoglobin A1c % Lactic Acid Lactic Acid F/U @ 2Hr Lactic Acid F/U @ 4Hr Calcium Phosphorus Magnesium Total Bilirubin AST ALT Alkaline Phosphatase Troponin I High Sens Total Protein Albumin Triglycerides Cholesterol LDL Cholesterol, Calc HDL Cholesterol Lipase TSH Free T4 Urine Color Urine Appearance Urine pH Ur Specific [place] Urine Protein Urine Glucose (UA) Urine Ketones Urine Blood Urine Nitrite Ur Leukocyte Esterase Urine RBC Urine WBC Ur Squamous Epith Cells Urine Bacteria Hyaline Casts Urine Opiates Screen Ur Buprenorphine Scrn Ur Oxycodone Screen Urine Methadone Screen Urine Fentanyl Screen Ur Barbiturates Screen Ur Phencyclidine Scrn Ur Amphetamines Screen U Benzodiazepines Scrn Urine Cocaine Screen U Marijuana (THC) Screen Ethylene Glycol Ethyl Alcohol Hepatitis A IgM Ab Hep Bs Antigen Hep Bs Antibody Hep B Core Total Ab Hepatitis C Ab (EIA) Influenza Type A (PCR) Influenza Type B (PCR) RSV RNA Qual (PCR) SARS-CoV-2 RNA (RT-PCR) Progress Note: A&P Assessment and plan (1) Major depressive disorder, recurrent severe without psychotic features: Status: Acute (2) Suicidal ideation: Status: Acute (3) Hypertriglyceridemia: Status: Acute Plan Apparently patient had stopped taking his oral medications a week prior to admission, last alcohol was in AM of admission but alcohol Major depression: Suicidal ideation: Anxiety: Patient received Zyprexa 10 mg IM this morning restarted home escitalopam and trazadone We will consult Psychiatry Hypertriglyceridemia: Continue insulin drip along with dextrose, will increase insulin to 4U and D5 to 200cc/hr Closely monitor triglyceride levels, we will stop the triglyceride levels are less than 1000 as there is no evidence of pancreatitis on labs or CT Alcohol related liver disease: AST and ALT trending down, down to 900 and 200 today We will stop phenobarbital given significant transaminitis; will switch to chlordiazepoxide On thiamine and folic acid supplement CT abdomen showing enlarged liver with cholestasis. will hold off on statins Hypertension: restarted amlodipine 10mg. Bicarb is falsely low secondary to severe hypertriglyceridemia leading to obscured results, bicarb much better on VBG Quality Stroke Does the patient have a stroke diagnosis?: No VTE Prior VTE?: No VTE Risk Level:: Medical - moderate - high VTE Device Contraindication: N/A - Device Ordered VTE Drug Contraindication: N/A - Med Ordered
[2025-04-02] MEDS: Thiamine HCL 100 MG in 0.9 % Sodium Chloride 100 ML 202 MG IV (10:14)
[2025-04-02 10:29] LABS: Glucose, Whole Blood 64 mg/dL (60-115)
--- NOTE | 2025-04-02 10:32 | MHC.CM.PN ---
Attempted to meet with patient in regards to discharge planning. Patient currently sleeping. Per nursing, patient has not taken meds for over a week, including psych meds, and has SI but will not elaborate on a plan. Spoke with patient's /HCP, Whitney, via telephone at [phone]. Patient and Whitney live together. Patient ambulates independently and had no home services prior to coming to the hospital. Whitney reports long standing mental health issues since around 1999. Patient has been having issues with alcohol for the past 7 years. Patient has had multiple inpatient psych admissions and has been section 35 once. Patient is now retired. Recently had TMS treatment at [facility] [place] and then 1 week later started to drink alcohol again. Patient still drives and is his own person. Whitney is concerned about patient's safety and mental. Whitney aware patient is currently in ICU and will transition to the floor as his condition becomes more stable. Also explained patient will need to be medically cleared before Crisis eval can be completed. Whitney verbalized understanding and feels patient will require another inpatient psych stay. IMM explained and sent via certified mail at her request. Copy of HCP obtained from [facility]. Continue to monitor for d/c needs.
[2025-04-02 12:02] LABS: Glucose, Whole Blood 51 mg/dL (60-115)
[2025-04-02 13:06] LABS: Triglycerides 2667 mg/dL (<150)
[2025-04-02 13:15] LABS: Glucose, Whole Blood 61 mg/dL (60-115)
[2025-04-02] MEDS: Dextrose 10 % 1,000 ML 200 ML IVCONT ×3 (13:18→22:21)
[2025-04-02 14:09] LABS: Glucose, Whole Blood 65 mg/dL (60-115)
[2025-04-02 16:09] LABS: Glucose, Whole Blood 75 mg/dL (60-115)
[2025-04-02] MEDS: OLANZapine 10 MG VIAL 5 MG IM (17:38)
--- NOTE | 2025-04-02 17:41 | PC.NURSE ---
Assumed care at 0700. Upon initial assessments pt on insulin drip and D5LR. Pt drowsy but A&O x 4. Pt complained of increased anxiety and abdominal pain.? Per MD, insulin drip adjusted to 4 units/hr and D5LR increased to 200 mL/hr. 1000 blood sugar was low, so rate increased to 250 mL/hr per MD. D5LR further increased to 300 mL/hr by MD due to low blood sugar at 1200. Per MD, D5LR dc?d and D10 started at 200mL/hr at 1318. 1:1 pt observer in room for patient safety. See MAR and assessments for further details. Fall & safety precautions in place.
--- NOTE | 2025-04-02 17:51 | PM.PSYCN ---
History of Present Illness Date of Service: 04/02/25 Chief Complaint: Hyperglyceremia Reason for Consult: SI Requesting physician: Mehran Mejía Discussed with referring provider: Yes Sources of Information: patient interviewed, chart reviewed and crisis/core team assessment reviewed HPI Narrative: Mr. Drake is a 64 yo white M with h/o ETOH use disorder, anxiety and depression who presented to the [facility] ED due to SI x 3-4 days without plan. He was transferred to the ICU for insulin infusion for tx of severe hypertriglyceridemia and is being monitored and treated for ETOH w/d. A psychiatric consultation was requested due to pt's SI and for med recs. Pt was asleep when t/w came to interview him, w/ 1:1 at beside. T/W had to call his name loudly multiple times to wake him but he was able to cooperate with the interview. He reports that he's struggled with depression, anxiety and alcohol for the past couple months and has has had passive suicidal ideation. He denies any plan/intent to harm himself. He can't recall the last time he felt emotionally well for a significant period of time. He had felt better when he was taking Lexapro 20 mg and Latuda 40 mg, which he quit taking 2 wks ago since he was drinking. He's felt worse without his meds and would like to re-start them. He reports drinking 4-5 nips/day x 2 mos. He had abstained from ETOH x 2 yrs prior to that through AA meetings and has attended detoxes years ago. He reports that he had a good support system but his was sick of his drinking , which led him to seek help. He states that he wants to quit drinking. He plans to return home w/ his . Pt denies h/o psychosis, kaveh or violent ideation Past Psychiatric History: Outpatient psychiatrist- Dr. Desir No current tx IPLOC x2: at [facility] in 12/2024 and mention of an earlier admission to [facility] x2: [facility] in 01/2025, remotely >10 yrs ago to [facility] x2: remote 12 years ago (reportedly impulsive in context of intoxication) History of past sobriety up to 4 years Previous medications: Zoloft, Paxil, Wellbutrin (most recent, was helpful until ineffective), Effexor (also felt to be helpful, eventually ineffective), Abilify, [place] (AE bad:), Seroquel, gabapentin, lorazepam, naltrexone, trazodone, topiramate ECT: series of 10 in 12/2024 (helpful) TMS: 11/2024 (not felt to be helpful) Medical Evaluation Reviewed: Yes [facility] Medical History Fatigue Family History: father with depression, denies any other issues or addiction or suicides in family Social History: family is supportive; 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 lives with of 45 years ( and reunited), has 3 adult children and 4 grandchildren; 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 graduated HS in 1979 college x 2 yrs [employer] (phys ed and business) denies legal hx Substance History: Alcohol use d/o, multiple detox admissions Otherwise denies Trauma History: yes childhood Diagnostics Vital Signs (24Hr): Vital Signs - 24 hr 04/01/25 17:54 04/01/25 19:00 04/01/25 20:29 Temperature 98.4 F Pulse Rate 107 H 110 H 120 H Respiratory Rate 18 20 16 Blood Pressure 160/100 H 165/94 H 151/101 H Pulse Oximetry 94 99 96 Oxygen Delivery Method Room Air Room Air Room Air Oxygen Flow Rate 04/01/25 22:03 04/01/25 23:35 04/02/25 00:00 Temperature 97.3 F 98.1 F Pulse Rate 104 H 100 Respiratory Rate 16 20 Blood Pressure 152/80 H 159/72 H Pulse Oximetry 96 96 Oxygen Delivery Method Room Air Nasal Cannula Oxygen Flow Rate 2 04/02/25 00:44 04/02/25 01:00 04/02/25 02:00 Temperature Pulse Rate 85 80 79 Respiratory Rate 20 20 Blood Pressure 115/73 116/71 116/71 Pulse Oximetry 95 96 Oxygen Delivery Method Nasal Cannula Nasal Cannula Oxygen Flow Rate 2 2 04/02/25 02:00 04/02/25 03:00 04/02/25 03:59 Temperature Pulse Rate 78 79 80 Respiratory Rate 20 20 22 H Blood Pressure 117/76 125/77 144/94 H Pulse Oximetry 96 96 95 Oxygen Delivery Method Nasal Cannula Nasal Cannula Nasal Cannula Oxygen Flow Rate 2 2 2 04/02/25 05:00 04/02/25 06:00 04/02/25 07:00 Temperature 97.8 F Pulse Rate 82 82 84 Respiratory Rate 21 H 20 15 Blood Pressure 106/69 145/85 H 150/82 H Pulse Oximetry 95 95 97 Oxygen Delivery Method Nasal Cannula Nasal Cannula Nasal Cannula Oxygen Flow Rate 2 2 04/02/25 08:00 04/02/25 09:00 04/02/25 10:00 Temperature Pulse Rate 94 78 82 Respiratory Rate 16 19 21 H Blood Pressure 150/87 H 142/84 H 136/77 Pulse Oximetry 97 99 98 Oxygen Delivery Method Nasal Cannula Nasal Cannula Nasal Cannula Oxygen Flow Rate 2 2 2 04/02/25 10:14 04/02/25 11:00 04/02/25 12:00 Temperature 97.9 F Pulse Rate 79 81 Respiratory Rate 18 20 Blood Pressure 152/86 H 142/82 H 153/76 H Pulse Oximetry 98 99 Oxygen Delivery Method Nasal Cannula Nasal Cannula Oxygen Flow Rate 2 2 04/02/25 13:00 04/02/25 14:00 04/02/25 16:00 Temperature 97.6 F Pulse Rate 82 76 82 Respiratory Rate 16 17 19 Blood Pressure 161/85 H 134/81 140/56 H Pulse Oximetry 93 99 98 Oxygen Delivery Method Nasal Cannula Nasal Cannula Nasal Cannula Oxygen Flow Rate 2 2 2 BMI result Body Mass Index 37.9 Labs 04/01/25 22:43 04/02/25 04:17 Labs: Laboratory Results - last 48 hr 04/01/25 04/01/25 04/01/25 12:51 12:52 14:33 WBC 11.0 H RBC 4.65 Hgb 14.5 Hct 39.0 L MCV 83.9 MCH 31.2 MCHC 37.2 H RDW 13.4 Plt Count 220 MPV 9.5 Immature Gran % (Auto) 0.5 H Neut % (Auto) 71.9 Lymph % (Auto) 18.1 L Sullivan % (Auto) 9.5 Eos % (Auto) 0.0 Baso % (Auto) 0.0 Lymph # (Auto) 0.4 L Sullivan # (Auto) 0.2 Eos # (Auto) 0.0 Baso # (Auto) 0.0 Abs Immat Gran (auto) 0.01 Absolute Neuts (auto) 1.6 L Absolute Nucleated RBC 0.000 Nucleated RBC % (auto) 0.0 Smear Tech's Comments VERIFIED PT 12.4 INR 1.0 VBG pH VBG pCO2 VBG pO2 VBG HCO3 VBG O2 Saturation VBG Base Excess Sodium 130 L Potassium 3.9 Chloride 97 Carbon Dioxide < 5 L* D Anion Gap TNP BUN 17 H Creatinine 1.20 Estim Creat Clear Calc 76.6 Estimated GFR > 60 POC Glucose Random Glucose 114 Estimat Average Glucose Hemoglobin A1c % Lactic Acid Lactic Acid F/U @ 2Hr Lactic Acid F/U @ 4Hr Calcium 8.0 L D Phosphorus Magnesium 1.4 L* Total Bilirubin 1.0 AST 1323 H ALT 293 H Alkaline Phosphatase 153 H Troponin I High Sens Total Protein 6.9 Albumin 3.7 Triglycerides Cholesterol LDL Cholesterol, Calc HDL Cholesterol Lipase TSH Free T4 Urine Color Urine Appearance Urine pH Ur Specific [place] Urine Protein Urine Glucose (UA) Urine Ketones Urine Blood Urine Nitrite Ur Leukocyte Esterase Urine RBC Urine WBC Ur Squamous Epith Cells Urine Bacteria Hyaline Casts Urine Opiates Screen Ur Buprenorphine Scrn Ur Oxycodone Screen Urine Methadone Screen Urine Fentanyl Screen Ur Barbiturates Screen Ur Phencyclidine Scrn Ur Amphetamines Screen U Benzodiazepines Scrn Urine Cocaine Screen U Marijuana (THC) Screen Ethylene Glycol Ethyl Alcohol 146 Hepatitis A IgM Ab Hep Bs Antigen Hep Bs Antibody Hep B Core Total Ab Hepatitis C Ab (EIA) Influenza Type A (PCR) NEGATIVE Influenza Type B (PCR) NEGATIVE RSV RNA Qual (PCR) NEGATIVE SARS-CoV-2 RNA (RT-PCR) NEGATIVE 04/01/25 04/01/25 04/01/25 14:33 16:16 16:24 WBC 11.4 H RBC 4.91 Hgb 15.7 Hct 42.0 MCV 85.5 MCH 32.0 MCHC 37.4 H RDW 13.5 Plt Count 199 MPV 9.4 Immature Gran % (Auto) 0.5 H Neut % (Auto) 68.4 Lymph % (Auto) 22.9 Sullivan % (Auto) 8.1 Eos % (Auto) 0.0 Baso % (Auto) 0.1 Lymph # (Auto) 2.6 Sullivan # (Auto) 0.9 Eos # (Auto) 0.0 Baso # (Auto) 0.0 Abs Immat Gran (auto) 0.06 H Absolute Neuts (auto) 7.8 Absolute Nucleated RBC 0.000 Nucleated RBC % (auto) 0.0 Smear Tech's Comments PT 12.8 INR 1.0 VBG pH 7.40 VBG pCO2 28 VBG pO2 61 VBG HCO3 17 L VBG O2 Saturation 74.0 VBG Base Excess -5.1 Sodium 131 L Potassium 3.9 Chloride 99 Carbon Dioxide TNP Anion Gap TNP BUN 17 H Creatinine 1.24 Estim Creat Clear Calc 74.2 Estimated GFR 59 POC Glucose Random Glucose 130 H Estimat Average Glucose Hemoglobin A1c % Lactic Acid Lactic Acid F/U @ 2Hr Lactic Acid F/U @ 4Hr Calcium 8.0 L Phosphorus Magnesium 1.5 L Total Bilirubin 1.0 AST 1294 H ALT 293 H Alkaline Phosphatase 154 H Troponin I High Sens 10.9 Total Protein 6.8 Albumin 3.7 Triglycerides 5253 H Cholesterol 702 H LDL Cholesterol, Calc TNP HDL Cholesterol 24 L Lipase 19 TSH Free T4 Urine Color Dark Yellow Urine Appearance Cloudy Urine pH 5.5 Ur Specific [place] 1.010 Urine Protein 100 (2+) H Urine Glucose (UA) Negative Urine Ketones Negative Urine Blood Large (3+) H Urine Nitrite Negative Ur Leukocyte Esterase Negative Urine RBC >20 H Urine WBC 0-5 Ur Squamous Epith Cells 0-2 Urine Bacteria None Seen Hyaline Casts 11-20 Urine Opiates Screen Not Detected Ur Buprenorphine Scrn Not Detected Ur Oxycodone Screen Not Detected Urine Methadone Screen Not Detected Urine Fentanyl Screen Not Detected Ur Barbiturates Screen Not Detected Ur Phencyclidine Scrn Not Detected Ur Amphetamines Screen Not Detected U Benzodiazepines Scrn Not Detected Urine Cocaine Screen Not Detected U Marijuana (THC) Screen Not Detected Ethylene Glycol Ethyl Alcohol Cancelled Hepatitis A IgM Ab Hep Bs Antigen Hep Bs Antibody Hep B Core Total Ab Hepatitis C Ab (EIA) Influenza Type A (PCR) Influenza Type B (PCR) RSV RNA Qual (PCR) SARS-CoV-2 RNA (RT-PCR) 04/01/25 04/01/25 04/01/25 20:53 21:01 22:27 WBC RBC Hgb Hct MCV MCH MCHC RDW Plt Count MPV Immature Gran % (Auto) Neut % (Auto) Lymph % (Auto) Sullivan % (Auto) Eos % (Auto) Baso % (Auto) Lymph # (Auto) Sullivan # (Auto) Eos # (Auto) Baso # (Auto) Abs Immat Gran (auto) Absolute Neuts (auto) Absolute Nucleated RBC Nucleated RBC % (auto) Smear Tech's Comments PT INR VBG pH 7.43 VBG pCO2 27 VBG pO2 71 VBG HCO3 19 L VBG O2 Saturation 93.0 VBG Base Excess -3.5 Sodium 130 L Potassium 4.1 Chloride 99 Carbon Dioxide 18 L Anion Gap 17 BUN 15 Creatinine 1.09 Estim Creat Clear Calc 84.4 Estimated GFR > 60 POC Glucose 115 Random Glucose 105 Estimat Average Glucose Hemoglobin A1c % Lactic Acid 3.3 H* Lactic Acid F/U @ 2Hr Lactic Acid F/U @ 4Hr Calcium 7.6 L Phosphorus 3.0 Magnesium Total Bilirubin AST ALT Alkaline Phosphatase Troponin I High Sens 11.9 Total Protein Albumin Triglycerides Cholesterol LDL Cholesterol, Calc HDL Cholesterol Lipase TSH 5.31 H Free T4 0.95 Urine Color Urine Appearance Urine pH Ur Specific [place] Urine Protein Urine Glucose (UA) Urine Ketones Urine Blood Urine Nitrite Ur Leukocyte Esterase Urine RBC Urine WBC Ur Squamous Epith Cells Urine Bacteria Hyaline Casts Urine Opiates Screen Ur Buprenorphine Scrn Ur Oxycodone Screen Urine Methadone Screen Urine Fentanyl Screen Ur Barbiturates Screen Ur Phencyclidine Scrn Ur Amphetamines Screen U Benzodiazepines Scrn Urine Cocaine Screen U Marijuana (THC) Screen Ethylene Glycol Ethyl Alcohol Hepatitis A IgM Ab Nonreactive Hep Bs Antigen Negative Hep Bs Antibody NONREACTIVE Hep B Core Total Ab Nonreactive Hepatitis C Ab (EIA) Nonreactive Influenza Type A (PCR) Influenza Type B (PCR) RSV RNA Qual (PCR) SARS-CoV-2 RNA (RT-PCR) 04/01/25 04/01/25 04/01/25 22:43 23:14 23:18 WBC 8.2 RBC 4.31 L Hgb 13.5 L Hct 36.9 L MCV 85.6 MCH 31.3 MCHC 36.6 H RDW 13.3 Plt Count 144 L D MPV 9.2 L Immature Gran % (Auto) 0.7 H Neut % (Auto) 62.6 Lymph % (Auto) 26.2 Sullivan % (Auto) 10.1 Eos % (Auto) 0.0 Baso % (Auto) 0.4 Lymph # (Auto) 2.2 [place] # (Auto) 0.8 Eos # (Auto) 0.0 Baso # (Auto) 0.0 Abs Immat Gran (auto) 0.06 H Absolute Neuts (auto) 5.1 Absolute Nucleated RBC 0.000 Nucleated RBC % (auto) 0.0 Smear Tech's Comments PT INR VBG pH VBG pCO2 VBG pO2 VBG HCO3 VBG O2 Saturation VBG Base Excess Sodium Potassium Chloride Carbon Dioxide Anion Gap BUN Creatinine Estim Creat Clear Calc Estimated GFR POC Glucose 123 H Random Glucose Estimat Average Glucose Hemoglobin A1c % Lactic Acid Lactic Acid F/U @ 2Hr 2.2 H* Lactic Acid F/U @ 4Hr Calcium Phosphorus Magnesium Total Bilirubin AST ALT Alkaline Phosphatase Troponin I High Sens Total Protein Albumin Triglycerides Cholesterol LDL Cholesterol, Calc HDL Cholesterol Lipase TSH Free T4 Urine Color Urine Appearance Urine pH Ur Specific [place] Urine Protein Urine Glucose (UA) Urine Ketones Urine Blood Urine Nitrite Ur Leukocyte Esterase Urine RBC Urine WBC Ur Squamous Epith Cells Urine Bacteria Hyaline Casts Urine Opiates Screen Ur Buprenorphine Scrn Ur Oxycodone Screen Urine Methadone Screen Urine Fentanyl Screen Ur Barbiturates Screen Ur Phencyclidine Scrn Ur Amphetamines Screen U Benzodiazepines Scrn Urine Cocaine Screen U Marijuana (THC) Screen Ethylene Glycol NONE DETECTED Ethyl Alcohol Hepatitis A IgM Ab Hep Bs Antigen Hep Bs Antibody Hep B Core Total Ab Hepatitis C Ab (EIA) Influenza Type A (PCR) Influenza Type B (PCR) RSV RNA Qual (PCR) SARS-CoV-2 RNA (RT-PCR) 04/02/25 04/02/25 04/02/25 00:32 01:44 02:35 WBC RBC Hgb Hct MCV MCH MCHC RDW Plt Count MPV Immature Gran % (Auto) Neut % (Auto) Lymph % (Auto) [place] % (Auto) Eos % (Auto) Baso % (Auto) Lymph # (Auto) [place] # (Auto) Eos # (Auto) Baso # (Auto) Abs Immat Gran (auto) Absolute Neuts (auto) Absolute Nucleated RBC Nucleated RBC % (auto) Smear Tech's Comments PT INR VBG pH VBG pCO2 VBG pO2 VBG HCO3 VBG O2 Saturation VBG Base Excess Sodium Potassium Chloride Carbon Dioxide Anion Gap BUN Creatinine Estim Creat Clear Calc Estimated GFR POC Glucose 101 116 H Random Glucose Estimat Average Glucose Hemoglobin A1c % Lactic Acid Lactic Acid F/U @ 2Hr Lactic Acid F/U @ 4Hr 1.5 Calcium Phosphorus Magnesium Total Bilirubin AST ALT Alkaline Phosphatase Troponin I High Sens Total Protein Albumin Triglycerides Cholesterol LDL Cholesterol, Calc HDL Cholesterol Lipase TSH Free T4 Urine Color Urine Appearance Urine pH Ur Specific [place] Urine Protein Urine Glucose (UA) Urine Ketones Urine Blood Urine Nitrite Ur Leukocyte Esterase Urine RBC Urine WBC Ur Squamous Epith Cells Urine Bacteria Hyaline Casts Urine Opiates Screen Ur Buprenorphine Scrn Ur Oxycodone Screen Urine Methadone Screen Urine Fentanyl Screen Ur Barbiturates Screen Ur Phencyclidine Scrn Ur Amphetamines Screen U Benzodiazepines Scrn Urine Cocaine Screen U Marijuana (THC) Screen Ethylene Glycol Ethyl Alcohol Hepatitis A IgM Ab Hep Bs Antigen Hep Bs Antibody Hep B Core Total Ab Hepatitis C Ab (EIA) Influenza Type A (PCR) Influenza Type B (PCR) RSV RNA Qual (PCR) SARS-CoV-2 RNA (RT-PCR) 04/02/25 04/02/25 04/02/25 04:17 04:40 06:36 WBC RBC Hgb Hct MCV MCH MCHC RDW Plt Count MPV Immature Gran % (Auto) Neut % (Auto) Lymph % (Auto) [place] % (Auto) Eos % (Auto) Baso % (Auto) Lymph # (Auto) [place] # (Auto) Eos # (Auto) Baso # (Auto) Abs Immat Gran (auto) Absolute Neuts (auto) Absolute Nucleated RBC Nucleated RBC % (auto) Smear Tech's Comments PT INR VBG pH VBG pCO2 VBG pO2 VBG HCO3 VBG O2 Saturation VBG Base Excess Sodium 134 L Potassium 3.8 Chloride 104 Carbon Dioxide 14 L Anion Gap 20 BUN 15 Creatinine 0.88 Estim Creat Clear Calc 104.8 Estimated GFR > 60 POC Glucose 94 86 Random Glucose 82 Estimat Average Glucose 108 Hemoglobin A1c % 5.4 Lactic Acid Lactic Acid F/U @ 2Hr Lactic Acid F/U @ 4Hr Calcium 8.1 L D Phosphorus 4.0 Magnesium 2.3 Total Bilirubin 1.6 H AST 977 H ALT 229 H Alkaline Phosphatase 110 Troponin I High Sens Total Protein 6.3 L Albumin 3.2 L Triglycerides 3531 H Cholesterol LDL Cholesterol, Calc HDL Cholesterol Lipase TSH Free T4 Urine Color Urine Appearance Urine pH Ur Specific [place] Urine Protein Urine Glucose (UA) Urine Ketones Urine Blood Urine Nitrite Ur Leukocyte Esterase Urine RBC Urine WBC Ur Squamous Epith Cells Urine Bacteria Hyaline Casts Urine Opiates Screen Ur Buprenorphine Scrn Ur Oxycodone Screen Urine Methadone Screen Urine Fentanyl Screen Ur Barbiturates Screen Ur Phencyclidine Scrn Ur Amphetamines Screen U Benzodiazepines Scrn Urine Cocaine Screen U Marijuana (THC) Screen Ethylene Glycol Ethyl Alcohol Hepatitis A IgM Ab Hep Bs Antigen Hep Bs Antibody Hep B Core Total Ab Hepatitis C Ab (EIA) Influenza Type A (PCR) Influenza Type B (PCR) RSV RNA Qual (PCR) SARS-CoV-2 RNA (RT-PCR) 04/02/25 04/02/25 04/02/25 08:05 10:25 11:58 WBC RBC Hgb Hct MCV MCH MCHC RDW Plt Count MPV Immature Gran % (Auto) Neut % (Auto) Lymph % (Auto) [place] % (Auto) Eos % (Auto) Baso % (Auto) Lymph # (Auto) [place] # (Auto) Eos # (Auto) Baso # (Auto) Abs Immat Gran (auto) Absolute Neuts (auto) Absolute Nucleated RBC Nucleated RBC % (auto) Smear Tech's Comments PT INR VBG pH VBG pCO2 VBG pO2 VBG HCO3 VBG O2 Saturation VBG Base Excess Sodium Potassium Chloride Carbon Dioxide Anion Gap BUN Creatinine Estim Creat Clear Calc Estimated GFR POC Glucose 89 64 51 L* Random Glucose Estimat Average Glucose Hemoglobin A1c % Lactic Acid Lactic Acid F/U @ 2Hr Lactic Acid F/U @ 4Hr Calcium Phosphorus Magnesium Total Bilirubin AST ALT Alkaline Phosphatase Troponin I High Sens Total Protein Albumin Triglycerides Cholesterol LDL Cholesterol, Calc HDL Cholesterol Lipase TSH Free T4 Urine Color Urine Appearance Urine pH Ur Specific [place] Urine Protein Urine Glucose (UA) Urine Ketones Urine Blood Urine Nitrite Ur Leukocyte Esterase Urine RBC Urine WBC Ur Squamous Epith Cells Urine Bacteria Hyaline Casts Urine Opiates Screen Ur Buprenorphine Scrn Ur Oxycodone Screen Urine Methadone Screen Urine Fentanyl Screen Ur Barbiturates Screen Ur Phencyclidine Scrn Ur Amphetamines Screen U Benzodiazepines Scrn Urine Cocaine Screen U Marijuana (THC) Screen Ethylene Glycol Ethyl Alcohol Hepatitis A IgM Ab Hep Bs Antigen Hep Bs Antibody Hep B Core Total Ab Hepatitis C Ab (EIA) Influenza Type A (PCR) Influenza Type B (PCR) RSV RNA Qual (PCR) SARS-CoV-2 RNA (RT-PCR) 04/02/25 04/02/25 04/02/25 12:14 13:12 14:05 WBC RBC Hgb Hct MCV MCH MCHC RDW Plt Count MPV Immature Gran % (Auto) Neut % (Auto) Lymph % (Auto) [place] % (Auto) Eos % (Auto) Baso % (Auto) Lymph # (Auto) [place] # (Auto) Eos # (Auto) Baso # (Auto) Abs Immat Gran (auto) Absolute Neuts (auto) Absolute Nucleated RBC Nucleated RBC % (auto) Smear Tech's Comments PT INR VBG pH VBG pCO2 VBG pO2 VBG HCO3 VBG O2 Saturation VBG Base Excess Sodium Potassium Chloride Carbon Dioxide Anion Gap BUN Creatinine Estim Creat Clear Calc Estimated GFR POC Glucose 61 65 Random Glucose Estimat Average Glucose Hemoglobin A1c % Lactic Acid Lactic Acid F/U @ 2Hr Lactic Acid F/U @ 4Hr Calcium Phosphorus Magnesium Total Bilirubin AST ALT Alkaline Phosphatase Troponin I High Sens Total Protein Albumin Triglycerides 2667 H Cholesterol LDL Cholesterol, Calc HDL Cholesterol Lipase TSH Free T4 Urine Color Urine Appearance Urine pH Ur Specific [place] Urine Protein Urine Glucose (UA) Urine Ketones Urine Blood Urine Nitrite Ur Leukocyte Esterase Urine RBC Urine WBC Ur Squamous Epith Cells Urine Bacteria Hyaline Casts Urine Opiates Screen Ur Buprenorphine Scrn Ur Oxycodone Screen Urine Methadone Screen Urine Fentanyl Screen Ur Barbiturates Screen Ur Phencyclidine Scrn Ur Amphetamines Screen U Benzodiazepines Scrn Urine Cocaine Screen U Marijuana (THC) Screen Ethylene Glycol Ethyl Alcohol Hepatitis A IgM Ab Hep Bs Antigen Hep Bs Antibody Hep B Core Total Ab Hepatitis C Ab (EIA) Influenza Type A (PCR) Influenza Type B (PCR) RSV RNA Qual (PCR) SARS-CoV-2 RNA (RT-PCR) 04/02/25 16:05 WBC RBC Hgb Hct MCV MCH MCHC RDW Plt Count MPV Immature Gran % (Auto) Neut % (Auto) Lymph % (Auto) [place] % (Auto) Eos % (Auto) Baso % (Auto) Lymph # (Auto) [place] # (Auto) Eos # (Auto) Baso # (Auto) Abs Immat Gran (auto) Absolute Neuts (auto) Absolute Nucleated RBC Nucleated RBC % (auto) Smear Tech's Comments PT INR VBG pH VBG pCO2 VBG pO2 VBG HCO3 VBG O2 Saturation VBG Base Excess Sodium Potassium Chloride Carbon Dioxide Anion Gap BUN Creatinine Estim Creat Clear Calc Estimated GFR POC Glucose 75 Random Glucose Estimat Average Glucose Hemoglobin A1c % Lactic Acid Lactic Acid F/U @ 2Hr Lactic Acid F/U @ 4Hr Calcium Phosphorus Magnesium Total Bilirubin AST ALT Alkaline Phosphatase Troponin I High Sens Total Protein Albumin Triglycerides Cholesterol LDL Cholesterol, Calc HDL Cholesterol Lipase TSH Free T4 Urine Color Urine Appearance Urine pH Ur Specific [place] Urine Protein Urine Glucose (UA) Urine Ketones Urine Blood Urine Nitrite Ur Leukocyte Esterase Urine RBC Urine WBC Ur Squamous Epith Cells Urine Bacteria Hyaline Casts Urine Opiates Screen Ur Buprenorphine Scrn Ur Oxycodone Screen Urine Methadone Screen Urine Fentanyl Screen Ur Barbiturates Screen Ur Phencyclidine Scrn Ur Amphetamines Screen U Benzodiazepines Scrn Urine Cocaine Screen U Marijuana (THC) Screen Ethylene Glycol Ethyl Alcohol Hepatitis A IgM Ab Hep Bs Antigen Hep Bs Antibody Hep B Core Total Ab Hepatitis C Ab (EIA) Influenza Type A (PCR) Influenza Type B (PCR) RSV RNA Qual (PCR) SARS-CoV-2 RNA (RT-PCR) EKG EKG: reviewed Imaging Radiology Impressions: ITS Impressions Head CT 04/01/25 14:02 IMPRESSION: No acute intracranial abnormality. Suspected nasal bone fracture. Electronically signed by: Fredrick Weeks MD 04/01/2025 02:37 PM EST RP Chest X-Ray 04/01/25 14:13 IMPRESSION: No acute airspace disease. Electronically signed by: Maynor Song MD 04/01/2025 02:21 PM EST RP Mental Status Exam Mental Status Exam Narrative: Appearance: cox [place]ett, nasal cannula in place. grooming/hygiene wnl. eye contact wnl Attitude: Cooperative Speech: Fluent and wnl in regard to volume, tone, prosody Motor activity: Calm and without any tics, tremors or dyskinesias. Mood: as noted above Affect: appropriate, reactive, constricted Thought process: goal directed and without evidence of formal thought disorder Thought content: endorses passive SI. Denies plan/intent to harm self. Denies violent ideation Perception: Denies AH/VH and does not appear to respond to internal stimuli Insight: intact Judgment: intact Medications Medications Current Medications Amlodipine Besylate (Amlodipine Besylate 10 Mg Tablet) 10 mg PO DAILY PAYAM; Protocol Last Admin: 04/02/25 10:14 Dose: 10 mg Chlordiazepoxide HCl (Chlordiazepoxide Hcl 5 Mg Capsule) 10 mg PO TID PRN PRN Reason: Alcohol Withdrawal Last Admin: 04/02/25 14:58 Dose: 10 mg Dextrose (Dextrose 50 % 25 Gm/50 Ml Syringe) 25 gm IVPUSH Q30M PRN PRN Reason: BG < 70 Ezetimibe (Ezetimibe 10 Mg Tablet) 10 mg PO DAILY PAYAM Last Admin: 04/02/25 10:14 Dose: 10 mg Escitalopram Oxalate (Escitalopram Oxalate 20 Mg Tablet) 20 mg PO BEDTIME PAYAM Fenofibrate (Fenofibrate 160 Mg Tablet) 160 mg PO DAILY [facility] Last Admin: 04/02/25 11:29 Dose: 160 mg Heparin Sodium (Porcine) (Heparin Sodium,Porcine 5,000 Unit/Ml Vial) 5,000 unit SUBCUT Q8H [facility] Insulin Human Regular (Myxredlin) 100 unit in 100 mls @ 4 mls/hr IVCONT .Q24H PAYAM; Protocol Last Titration: 04/02/25 09:56 Dose: 4 unit/hr, 4 mls/hr Dextrose/Lactated Ringer's (D5lr) 1,000 mls @ 100 mls/hr IVCONT .Q10H PAYAM Last Admin: 04/02/25 16:57 Dose: Not Given Thiamine HCl 100 mg/ Sodium (Chloride) 101 mls @ 202 mls/hr IV DAILY [facility] Last Infusion: 04/02/25 11:14 Dose: Infused Folic Acid 1 mg/ Sodium (Chloride) 50.2 mls @ 100.4 mls/hr IV DAILY [facility] Last Infusion: 04/02/25 12:42 Dose: Infused Dextrose (D10) 1,000 mls @ 200 mls/hr IVCONT .Q5H PAYAM Last Admin: 04/02/25 13:18 Dose: 200 mls/hr Ketorolac Tromethamine (Ketorolac Tromethamine 15 Mg/Ml Vial) 15 mg IM Q6H PRN PRN Reason: Pain, Moderate(Pain Scale 4-6) Last Admin: 04/02/25 08:39 Dose: 15 mg Metoprolol Tartrate (Metoprolol Tartrate 5 Mg/5 Ml Vial) 5 mg IVPUSH Q6H PRN; Protocol PRN Reason: SBP > 150 Last Admin: 04/02/25 00:11 Dose: 5 mg Olanzapine (Olanzapine 10 Mg Vial) 10 mg IM DAILY PRN PRN Reason: Anxiety Last Admin: 04/02/25 08:40 Dose: 10 mg Ondansetron HCl (Ondansetron Hcl 4 Mg/2 Ml Vial) 4 mg IVPUSH Q6H PRN PRN Reason: Nausea and Vomiting Last Admin: 04/02/25 07:11 Dose: 4 mg Topiramate (Topiramate 25 Mg Tablet) 50 mg PO BEDTIME PAYAM Trazodone HCl (Trazodone Hcl 100 Mg Tablet) 100 mg PO BEDTIME [facility] Allergies Allergies Allergy/AdvReac Type Severity Reaction Status Date / Time No Known Allergies Allergy Verified 04/01/25 12:28 Assessment & Plan Assessment & Plan (1) Major depressive disorder, recurrent severe without psychotic features: Status: Acute Code(s): F33.2 - Major depressive disorder, recurrent severe without psychotic features (2) Suicidal ideation: Status: Acute Code(s): R45.851 - Suicidal ideations (3) Alcohol use disorder: Status: Acute Code(s): F10.90 - Alcohol use, unspecified, uncomplicated Plan Mr. Drake is a 64 yo white M with h/o ETOH use disorder, anxiety and depression who presented to the [facility] ED due to SI x 3-4 days without plan. He was transferred to the ICU for insulin infusion for tx of severe hypertriglyceridemia and is being monitored and treated for ETOH w/d. A psychiatric consultation was requested due to pt's SI and for med recs. Pt endorses ongoing passive SI but denies any plan or intent to harm himself. He would like to resume his previous med regimen, Latuda 40 mg and Lexapro 20 mg qd, which had been helpful Treatment Recommendations: Continue Lexapro 20 mg (already ordered) Start Latuda 40 mg qd. I took the liberty of ordering it to start tomorrow. Reviewed EKG, QTc 455 ms 1:1 can be discontinued if it was ordered for SI Total time managing care of this patient today ____ minutes. Patient educated on: medication risk/benefits Informed Consent: understands
[2025-04-02 18:02] LABS: Glucose, Whole Blood 141 mg/dL (60-115)
[2025-04-02 18:53] LABS: Triglycerides 2292 mg/dL (<150)
[2025-04-02] MEDS: Insulin Regular/NS 100 UNIT/100 ML PLAST..BAG IVCONT (19:11)
[2025-04-02 20:11] LABS: Glucose, Whole Blood 147 mg/dL (60-115)
[2025-04-02 22:10] LABS: Glucose, Whole Blood 148 mg/dL (60-115)
[2025-04-02 23:52] LABS: Glucose, Whole Blood 227 mg/dL (60-115)
[2025-04-03] VITALS (25 sets, daily range): BP systolic 91–163; BP diastolic 55–95; PULSE 70–114; RESP 10–24; TEMP 36.4–37.2; O2SAT 90–98; BMI 38.1
[2025-04-03 00:37] LABS: Triglycerides 1763 mg/dL (<150)
[2025-04-03 02:12] LABS: Glucose, Whole Blood 135 mg/dL (60-115)
[2025-04-03] MEDS: Dextrose 10 % 1,000 ML 100 ML IVCONT (03:15)
[2025-04-03 03:24] LABS: Glucose, Whole Blood 109 mg/dL (60-115)
--- NOTE | 2025-04-03 03:34 | PC.NURSE ---
CARE ASSUMED 7PM..NAPPING INTERMITTANTLY..AWAKE SPONTANEOUSLY..ALERT..ORIENTED X3...RESPIRATIONS EASY WITH O2 2 L/M..VSS..NSR..NO ECTOPY...7PM INSULIN DRIP 4 UNITS/HR AND D10% 200 CC/HR..Q2H POC GLUCOSES INITIALLY STABLE..REPORTED ANXIETY BUT RESTFUL..REPOSITIONS SELF IN BED AND VOIDING IN URINAL...HS HOME PSYCH MEDS RESTARTED PER JUL...PRN LIBRIIUM 10MG PO GIVEN 22:20..RESTFUL OVERNIGHT...POC GLUCOSE UP TO 227...D10% WEANED TO 100 CC/HR PER ICU PA...POC GLUCOSE 135 THEN 109...D10% INCREASED TO 150 CC/HR PER PROVIDER...1;1 SITTER MAINTAINED PER PROVIDERTO CONTINUE Q2H POC GLUCOSE AND AM LAB-WORK PREVIOUSLY ORDERED PER PROVIDER
[2025-04-03 04:39] LABS: Alanine Aminotransferase 191 U/L (0-40); Albumin Level 2.9 g/dL (3.5-5.0); Alkaline Phosphatase 110 U/L (39-117); Anion Gap 14 (12-20); Aspartate Amino Transferase 635 U/L (5-37); Blood Urea Nitrogen 7 mg/dL (9-16); Calcium 8.3 mg/dL (8.4-10.2); Carbon Dioxide 23 mmol/L (22-29); Chloride 102 mmol/L (96-108); Creatinine Clr Calc Pharmacy 117.0; Estimated Glomerular Filt Rate > 60; Potassium 3.1 mmol/L (3.3-5.1); Sodium 136 mmol/L (135-145); Total Protein 5.6 g/dL (6.5-8.0)
[2025-04-03 04:46] LABS: Triglycerides 1566 mg/dL (<150)
[2025-04-03] MEDS: Potassium Chloride ER 20 MEQ TAB.ER.PRT 40 MEQ PO (05:29)
[2025-04-03 05:43] LABS: Glucose, Whole Blood 145 mg/dL (60-115)
[2025-04-03] MEDS: Thiamine HCL 100 MG in 0.9 % Sodium Chloride 100 ML 202 MG IV (07:41)
[2025-04-03 08:11] LABS: Glucose, Whole Blood 202 mg/dL (60-115)
--- NOTE | 2025-04-03 09:11 | P.PNCC_ITS ---
Subjective Subjective Date of Service: 04/03/25 Interval History: No new events overnight Comfortably sleeping this morning On insulin and D10 drip, triglycerides coming down Critical Care Time (minutes): 35 Physical Exam 2 Vital Signs: Vital Signs: Last Vital Signs Temp 97.5 F 04/03/25 08:00 Pulse 107 H 04/03/25 08:00 Resp 19 04/03/25 08:00 BP 141/83 H 04/03/25 08:00 Pulse Ox 95 04/03/25 08:00 O2 Del Method Room Air 04/03/25 08:00 O2 Flow Rate 2 04/03/25 06:00 BMI result Body Mass Index 38.1 General: not in any acute distress, comfortably sleeping this morning Nutritional Appearance: well nourished and overweight Eyes: appearance normal, both eyes and all related structures; Alignment and Position: alignment normal and position normal Neck: No lymphadenopathy, no thyromegaly Resp: bilateral air entry equal, no added sounds present Cardio: Regular rate, regular rhythm; Heart sounds: S1 normal heart sound present and S2 normal heart sound present GI: soft, nontender, no guarding, no hepatosplenomegaly : bladder normal to inspection, bladder normal to palpation, no renal angle tenderness Skin: no rashes or lesions noted and elasticity normal Neuro: alert, oriented x 3, moves all extremities Objective Data Labs 04/01/25 22:43 04/03/25 04:08 Labs: Laboratory Results - last 24 hr 04/01/25 04/02/25 04/02/25 23:18 10:25 11:58 Sodium Potassium Chloride Carbon Dioxide Anion Gap BUN Creatinine Estim Creat Clear Calc Estimated GFR POC Glucose 64 51 L* Random Glucose Calcium Total Bilirubin AST ALT Alkaline Phosphatase Total Protein Albumin Triglycerides Free T3 2.8 04/02/25 04/02/25 04/02/25 12:14 13:12 14:05 Sodium Potassium Chloride Carbon Dioxide Anion Gap BUN Creatinine Estim Creat Clear Calc Estimated GFR POC Glucose 61 65 Random Glucose Calcium Total Bilirubin AST ALT Alkaline Phosphatase Total Protein Albumin Triglycerides 2667 H Free T3 04/02/25 04/02/25 04/02/25 16:05 17:58 17:59 Sodium Potassium Chloride Carbon Dioxide Anion Gap BUN Creatinine Estim Creat Clear Calc Estimated GFR POC Glucose 75 141 H Random Glucose Calcium Total Bilirubin AST ALT Alkaline Phosphatase Total Protein Albumin Triglycerides 2292 H Free T3 04/02/25 04/02/25 04/02/25 20:07 22:07 23:48 Sodium Potassium Chloride Carbon Dioxide Anion Gap BUN Creatinine Estim Creat Clear Calc Estimated GFR POC Glucose 147 H 148 H 227 H Random Glucose Calcium Total Bilirubin AST ALT Alkaline Phosphatase Total Protein Albumin Triglycerides Free T3 04/03/25 04/03/25 04/03/25 00:08 02:09 03:19 Sodium Potassium Chloride Carbon Dioxide Anion Gap BUN Creatinine Estim Creat Clear Calc Estimated GFR POC Glucose 135 H 109 Random Glucose Calcium Total Bilirubin AST ALT Alkaline Phosphatase Total Protein Albumin Triglycerides 1763 H Free T3 04/03/25 04/03/25 04/03/25 04:08 05:38 08:03 Sodium 136 Potassium 3.1 L Chloride 102 Carbon Dioxide 23 Anion Gap 14 BUN 7 L Creatinine 0.79 Estim Creat Clear Calc 117.0 Estimated GFR > 60 POC Glucose 145 H 202 H Random Glucose 121 H Calcium 8.3 L Total Bilirubin 1.2 H AST 635 H ALT 191 H Alkaline Phosphatase 110 Total Protein 5.6 L Albumin 2.9 L Triglycerides 1566 H Free T3 Progress Note: A&P Assessment and plan (1) Hypertriglyceridemia: Status: Acute (2) Suicidal ideation: Status: Acute (3) Alcoholic liver disease: Status: Acute (4) Alcohol withdrawal: Status: Acute Plan Apparently patient had stopped taking his oral medications a week prior to admission, last alcohol was in AM of admission but alcohol levels negative Major depression: Suicidal ideation: Anxiety: On as needed Zyprexa 10 mg IM this morning Continue home Latuda, topiramate, escitalopam and trazadone Psychiatry advised that patient does not have active suicidal ideation so does not need a 1:1 sitter. Hypertriglyceridemia: Continue insulin drip at 4 units/hour with D10 at 01:50 cc/hour. Triglyceride level trending down 5253 upon admission, down to 1566 this morning. we will stop the triglyceride levels are less than 1000 as there is no evidence of pancreatitis on labs or CT Continue ezetemibe and fenofibrate. Alcohol related liver disease: AST and ALT trending down, phenobarbital stopped due to significant transaminitis; currently on as needed chlordiazepoxide On thiamine and folic acid supplement CT abdomen showing enlarged liver with cholestasis. will hold off on statins Hypertension: restarted amlodipine 10mg. Quality Stroke Does the patient have a stroke diagnosis?: No VTE Prior VTE?: No VTE Risk Level:: Medical - moderate - high VTE Device Contraindication: N/A - Device Ordered VTE Drug Contraindication: N/A - Med Ordered
[2025-04-03] MEDS: Dextrose 10 % 1,000 ML 150 ML IVCONT (09:19)
[2025-04-03 10:40] LABS: Glucose, Whole Blood 156 mg/dL (60-115)
[2025-04-03 12:56] LABS: Glucose, Whole Blood 153 mg/dL (60-115)
[2025-04-03] MEDS: OLANZapine 10 MG VIAL IM (13:26)
[2025-04-03 14:00] LABS: Triglycerides 1638 mg/dL (<150)
[2025-04-03 14:26] LABS: Glucose, Whole Blood 174 mg/dL (60-115)
[2025-04-03] MEDS: Dextrose 10 % 1,000 ML 225 ML IVCONT ×3 (15:20→23:13)
[2025-04-03] MEDS: Insulin Regular/NS 100 UNIT/100 ML PLAST..BAG 6 UNIT IVCONT (15:21)
[2025-04-03 15:47] LABS: Glucose, Whole Blood 156 mg/dL (60-115)
[2025-04-03 17:24] LABS: Glucose, Whole Blood 132 mg/dL (60-115)
--- NOTE | 2025-04-03 17:46 | PC.NURSE ---
Assumed care at 0700- pt, A&Ox4, pt. drowsy, slept in naps through most of the day, arousable to name. While awake, pt. calm and cooperative but c/o persistant anxiety- PRN librium and zyprexa given per JUL. SR/ST on tele, HR 70s-100s. Pt. remains on insulin gtt for high triglycerides- 1300 labs drawn- see results. insulin gtt adjusted per MD verbal order, not per protocol. Pt. utilizing urinal, voiding cyu. 1:1 sitter d/c based on psych recommendation- see psych report. Pt. repositioning self, tolerating meals. updated via telephone. Plan of care ongoing.
[2025-04-03 19:46] LABS: Glucose, Whole Blood 167 mg/dL (60-115)
[2025-04-03 21:39] LABS: Glucose, Whole Blood 185 mg/dL (60-115)
[2025-04-03 23:27] LABS: Glucose, Whole Blood 139 mg/dL (60-115)
[2025-04-04] VITALS (15 sets, daily range): BP systolic 112–165; BP diastolic 55–89; PULSE 58–109; RESP 12–20; TEMP 36.3–37.3; O2SAT 92–97; BMI 37.1
[2025-04-04 01:41] LABS: Glucose, Whole Blood 184 mg/dL (60-115)
[2025-04-04] MEDS: Dextrose 10 % 1,000 ML 225 ML IVCONT ×3 (03:20→12:08)
[2025-04-04] MEDS: Insulin Regular/NS 100 UNIT/100 ML PLAST..BAG 6 UNIT IVCONT (03:21)
[2025-04-04 03:42] LABS: Glucose, Whole Blood 267 mg/dL (60-115)
[2025-04-04 05:10] LABS: MANUAL DIFF FLAG NO
[2025-04-04 05:12] LABS: Hematocrit 36.1 % (42.0-52.0); Hemoglobin 12.4 g/dl (14.0-18.0); Imm Gran Abs Auto 0.14 X10*3/uL (0.00-0.03); Imm Gran Pct Auto 3.0 % (0.0-0.4); Lymphocytes Absolute Auto 2.1 X10*3/uL (1.2-4.9); Mean Corpuscular HGB Conc 34.3 g/dl (31.0-36.0); Mean Corpuscular Hemoglobin 30.2 pg (27.0-33.0); Mean Corpuscular Volume 87.8 fL (80.0-98.0); NRBC Abs Auto 0.000 X10*3/uL (0.0-0.012); NRBC Pct Auto 0.0 /100WBC (0.0-0.2); Platelet Count 171 X10*3/uL (160-400); Red Blood Count 4.11 X10*6/uL (4.60-5.80); White Blood Count 4.7 X10*3/uL (4.8-10.8)
[2025-04-04 05:27] LABS: Alanine Aminotransferase 174 U/L (0-40); Albumin Level 3.0 g/dL (3.5-5.0); Alkaline Phosphatase 122 U/L (39-117); Anion Gap 11 (12-20); Aspartate Amino Transferase 437 U/L (5-37); Blood Urea Nitrogen 7 mg/dL (9-16); Calcium 8.6 mg/dL (8.4-10.2); Carbon Dioxide 26 mmol/L (22-29); Chloride 103 mmol/L (96-108); Creatinine Clr Calc Pharmacy 114.1; Estimated Glomerular Filt Rate > 60; Magnesium 1.6 mg/dL (1.6-2.6); Potassium 3.4 mmol/L (3.3-5.1); Sodium 137 mmol/L (135-145); Total Protein 6.0 g/dL (6.5-8.0); Triglycerides 1395 mg/dL (<150)
[2025-04-04 05:57] LABS: Glucose, Whole Blood 154 mg/dL (60-115)
--- NOTE | 2025-04-04 06:27 | PC.NURSE ---
CARE ASSUMED 7PM..ALERT..ORIENTED X3..RESPIRATIONS EASY ON ROOM AIR....TAKING PO W/O NAUSEA OR PAIN...VOIDING LARGE AMOUNTS YELLOW URINE IN URINAL..MAINTAINED D10% 225 CC/HR PER PROVIDER....INSULIN INITIALLY 6 UNITS/HR..TITRATED TO 8 UNITS/HR THEN 10 UNITS/HR PER PROVIDER AND MAR...PER ICU PA GLUCOSE GOAL= 80 OR GREATER AND TO MAINTAIN D10% INFUSION
[2025-04-04] MEDS: Sodium,Potassium Phosphates POWD.PACK 2 PACKET PO (07:35)
[2025-04-04] MEDS: Thiamine HCL 100 MG in 0.9 % Sodium Chloride 100 ML 202 MG IV (07:36)
[2025-04-04 08:19] LABS: Glucose, Whole Blood 130 mg/dL (60-115)
--- NOTE | 2025-04-04 09:00 | PM.CCPN ---
Subjective Subjective Date of Service: 04/04/25 Interval History: No new complaints, resting well. Occasional anxiety controlled with Zyprexa and chlordiazepoxide Critical Care Time (minutes): 35 Physical Exam Vital Signs: Vital Signs: Last Vital Signs Temp 98.2 F 04/04/25 08:00 Pulse 105 H 04/04/25 08:00 Resp 20 04/04/25 08:00 BP 112/55 L 04/04/25 08:00 Pulse Ox 96 04/04/25 08:00 O2 Del Method Room Air 04/04/25 08:00 O2 Flow Rate 2 04/03/25 06:00 FiO2 25 04/04/25 06:00 BMI result Body Mass Index 37.1 General: not in any acute distress, ill appearing Nutritional Appearance: well nourished and overweight Eyes: appearance normal, both eyes and all related structures; Alignment and Position: alignment normal and position normal Neck: No lymphadenopathy, no thyromegaly Resp: bilateral air entry equal, no added sounds present Cardio: Regular rate, regular rhythm; Heart sounds: S1 normal heart sound present and S2 normal heart sound present GI: soft, nontender, no guarding, no hepatosplenomegaly : bladder normal to inspection, bladder normal to palpation, no renal angle tenderness Skin: no rashes or lesions noted and elasticity normal Neuro: alert, oriented x 3, moves all extremities Objective Data Labs 04/04/25 04:50 04/04/25 04:51 Labs: Laboratory Results - last 24 hr 04/03/25 04/03/25 04/03/25 10:37 12:02 12:56 WBC RBC Hgb Hct MCV MCH MCHC RDW Plt Count MPV Immature Gran % (Auto) Neut % (Auto) Lymph % (Auto) [place] % (Auto) Eos % (Auto) Baso % (Auto) Lymph # (Auto) [place] # (Auto) Eos # (Auto) Baso # (Auto) Abs Immat Gran (auto) Absolute Neuts (auto) Absolute Nucleated RBC Nucleated RBC % (auto) Hold Purple Top SEE NOTE Sodium Potassium Chloride Carbon Dioxide Anion Gap BUN Creatinine Estim Creat Clear Calc Estimated GFR POC Glucose 156 H 153 H Random Glucose Calcium Phosphorus Magnesium Total Bilirubin AST ALT Alkaline Phosphatase Total Protein Albumin Triglycerides 1638 H 04/03/25 04/03/25 04/03/25 14:22 15:44 17:20 WBC RBC Hgb Hct MCV MCH MCHC RDW Plt Count MPV Immature Gran % (Auto) Neut % (Auto) Lymph % (Auto) [place] % (Auto) Eos % (Auto) Baso % (Auto) Lymph # (Auto) [place] # (Auto) Eos # (Auto) Baso # (Auto) Abs Immat Gran (auto) Absolute Neuts (auto) Absolute Nucleated RBC Nucleated RBC % (auto) Hold Purple Top Sodium Potassium Chloride Carbon Dioxide Anion Gap BUN Creatinine Estim Creat Clear Calc Estimated GFR POC Glucose 174 H 156 H 132 H Random Glucose Calcium Phosphorus Magnesium Total Bilirubin AST ALT Alkaline Phosphatase Total Protein Albumin Triglycerides 04/03/25 04/03/25 04/03/25 19:34 21:34 23:23 WBC RBC Hgb Hct MCV MCH MCHC RDW Plt Count MPV Immature Gran % (Auto) Neut % (Auto) Lymph % (Auto) [place] % (Auto) Eos % (Auto) Baso % (Auto) Lymph # (Auto) [place] # (Auto) Eos # (Auto) Baso # (Auto) Abs Immat Gran (auto) Absolute Neuts (auto) Absolute Nucleated RBC Nucleated RBC % (auto) Hold Purple Top Sodium Potassium Chloride Carbon Dioxide Anion Gap BUN Creatinine Estim Creat Clear Calc Estimated GFR POC Glucose 167 H 185 H 139 H Random Glucose Calcium Phosphorus Magnesium Total Bilirubin AST ALT Alkaline Phosphatase Total Protein Albumin Triglycerides 04/04/25 04/04/25 04/04/25 01:38 03:38 04:50 WBC 4.7 L RBC 4.11 L Hgb 12.4 L Hct 36.1 L MCV 87.8 MCH 30.2 MCHC 34.3 RDW 13.7 Plt Count 171 MPV 9.7 Immature Gran % (Auto) 3.0 H Neut % (Auto) 40.4 L Lymph % (Auto) 43.5 H [place] % (Auto) 8.2 Eos % (Auto) 3.6 Baso % (Auto) 1.3 Lymph # (Auto) 2.1 [place] # (Auto) 0.4 Eos # (Auto) 0.2 Baso # (Auto) 0.1 Abs Immat Gran (auto) 0.14 H Absolute Neuts (auto) 1.9 L Absolute Nucleated RBC 0.000 Nucleated RBC % (auto) 0.0 Hold Purple Top Sodium Potassium Chloride Carbon Dioxide Anion Gap BUN Creatinine Estim Creat Clear Calc Estimated GFR POC Glucose 184 H 267 H Random Glucose Calcium Phosphorus Magnesium Total Bilirubin AST ALT Alkaline Phosphatase Total Protein Albumin Triglycerides 04/04/25 04/04/25 04/04/25 04:51 05:54 08:15 WBC RBC Hgb Hct MCV MCH MCHC RDW Plt Count MPV Immature Gran % (Auto) Neut % (Auto) Lymph % (Auto) [place] % (Auto) Eos % (Auto) Baso % (Auto) Lymph # (Auto) [place] # (Auto) Eos # (Auto) Baso # (Auto) Abs Immat Gran (auto) Absolute Neuts (auto) Absolute Nucleated RBC Nucleated RBC % (auto) Hold Purple Top Sodium 137 Potassium 3.4 Chloride 103 Carbon Dioxide 26 Anion Gap 11 L BUN 7 L Creatinine 0.80 Estim Creat Clear Calc 114.1 Estimated GFR > 60 POC Glucose 154 H 130 H Random Glucose 200 H Calcium 8.6 Phosphorus 2.5 L Magnesium 1.6 Total Bilirubin 0.7 AST 437 H ALT 174 H Alkaline Phosphatase 122 H Total Protein 6.0 L Albumin 3.0 L Triglycerides 1395 H Progress Note: A&P Assessment and plan (1) Alcoholic liver disease: Status: Acute (2) Elevation of levels of liver transaminase levels: Status: Acute (3) Alcohol withdrawal: Status: Acute (4) Suicidal ideation: Status: Acute Plan Apparently patient had stopped taking his oral medications a week prior to admission, last alcohol was in AM of admission but alcohol levels negative Major depression: Suicidal ideation: Anxiety: On as needed Zyprexa 5 mg IM Continue home Latuda, topiramate, escitalopam and trazadone Psychiatry advised that patient does not have active suicidal ideation so does not need a 1:1 sitter. Hypertriglyceridemia: Continue insulin drip at 10 units/hour with D10 at 225 cc/hour. Triglyceride level trending down 5253 upon admission, down to 1300 this morning. There is no evidence of pancreatitis on labs or CT, we will stop the insulin drip this afternoon and transfer him to floor. patient was admitted to [facility] few years ago, was treated with insulin drip for over a week for hypertriglyceridemia but couldnt get it below 1000, so was eventually stopped and discharged home. Continue ezetemibe and fenofibrate. Alcohol related liver disease: AST and ALT trending down, 437 and 174 this morning phenobarbital stopped due to significant transaminitis; currently on as needed chlordiazepoxide On thiamine and folic acid supplement, which we will switch to oral medications CT abdomen showing enlarged liver with cholestasis. will hold off on statins until LFT is less than 3 times the upper limit Hypertension: on amlodipine 10mg. Quality Stroke Does the patient have a stroke diagnosis?: No VTE Prior VTE?: No VTE Risk Level:: Medical - moderate - high VTE Device Contraindication: N/A - Device Ordered VTE Drug Contraindication: N/A - Med Ordered
[2025-04-04 10:16] LABS: Glucose, Whole Blood 151 mg/dL (60-115)
[2025-04-04] MEDS: OLANZapine 10 MG VIAL 5 MG IM ×2 (10:57→21:46)
[2025-04-04 11:29] LABS: Triglycerides 1350 mg/dL (<150)
[2025-04-04 12:04] LABS: Glucose, Whole Blood 123 mg/dL (60-115)
--- NOTE | 2025-04-04 13:01 | MHC.CM.PN ---
Pt making clinical gains and will be transferred to the medical floor for continued care. Pt is from home w/family: will return - CARE team to see for [facility] referrals. CM to follow
--- NOTE | 2025-04-04 13:44 | HO.WOUND ---
Wound Consult: Initial 64 yr old male admitted to [facility] on 04/01/25 - See progress notes and H&P for detailed history. Wound consult placed for wound. Patient agreeable to assessment and photo documentation. upon assessment, patient with several scattered bruising and abrasions across body. Right forehead small dry scab, right leg bruising. Coccyx/buttocks intact , mildly pink and blanching. patient complaining of pain to left hip area- no visible deformity or bruising noted, no wounds. left elbow superficial abrasion- now dry red without any drainage, no surrounding redness - leave open to air. Re-consult wound care Nurse for wound deterioration or wound changes.
[2025-04-04 16:17] LABS: Glucose, Whole Blood 160 mg/dL (60-115)
[2025-04-04 19:03] LABS: Triglycerides 1567 mg/dL (<150)
[2025-04-04 20:39] LABS: Glucose, Whole Blood 170 mg/dL (60-115)
--- NOTE | 2025-04-04 21:47 | MHC.PIE ---
p; pt c/o anxiety and restlessness asking for prn zypreza IM. note; prn zyprexa bid given at 1057. i; MARY bennett notified. ok to give early dose e; will cont to monitor
--- NOTE | 2025-04-05 02:28 | MHC.PIE ---
p; pt reports unable to sleep asking for sleep med. note; pt was asleep snoring in bed after the PM med pass till now. i; MARY bennett notified. new order trazondone now e; will cont to monitor
[2025-04-05 03:10] VITALS: BP 135/69; PULSE 85; RESP 17; TEMP 36.2; O2SAT 96
[2025-04-05 06:16] LABS: Hematocrit 37.4 % (42.0-52.0); Hemoglobin 13.2 g/dl (14.0-18.0); Mean Corpuscular HGB Conc 35.3 g/dl (31.0-36.0); Mean Corpuscular Hemoglobin 31.4 pg (27.0-33.0); Mean Corpuscular Volume 89.0 fL (80.0-98.0); NRBC Abs Auto 0.020 X10*3/uL (0.0-0.012); NRBC Pct Auto 0.3 /100WBC (0.0-0.2); Platelet Count 227 X10*3/uL (160-400); Red Blood Count 4.20 X10*6/uL (4.60-5.80)
[2025-04-05 06:26] LABS: WBC ABN SCTR FOR CBC 1
[2025-04-05 06:35] LABS: Alanine Aminotransferase 144 U/L (0-40); Albumin Level 3.1 g/dL (3.5-5.0); Alkaline Phosphatase 120 U/L (39-117); Anion Gap 15 (12-20); Aspartate Amino Transferase 283 U/L (5-37); Blood Urea Nitrogen 10 mg/dL (9-16); Calcium 9.1 mg/dL (8.4-10.2); Carbon Dioxide 25 mmol/L (22-29); Chloride 102 mmol/L (96-108); Creatinine Clr Calc Pharmacy 99.2; Estimated Glomerular Filt Rate > 60; Magnesium 1.5 mg/dL (1.6-2.6); Potassium 3.8 mmol/L (3.3-5.1); Sodium 138 mmol/L (135-145); Total Protein 6.4 g/dL (6.5-8.0)
[2025-04-05 06:40] LABS: Triglycerides 1498 mg/dL (<150)
[2025-04-05 07:18] VITALS: BP 138/86; PULSE 98; RESP 16; TEMP 36.4; O2SAT 95
--- NOTE | 2025-04-05 07:25 | P.PNIM_ITS ---
Subjective Subjective Date of Service: 04/05/25 Interval History: Patient appears anxious, appears to have high pursed breathing of anxiety Triglycerides trending down Reports he walks with a walker Review of Systems Review of Systems: Yes all other systems are reviewed and are negative Physical Exam 2 Vital Signs: Vital Signs: Last Vital Signs Temp 97.6 F 04/05/25 07:18 Pulse 98 04/05/25 07:18 Resp 16 04/05/25 07:18 BP 138/86 04/05/25 07:18 Pulse Ox 95 04/05/25 07:18 O2 Del Method Room Air 04/05/25 07:18 O2 Flow Rate 2 04/03/25 06:00 FiO2 25 04/04/25 06:00 BMI result Body Mass Index 37.1 Const: Other: Anxious appearing General: cooperative Orientation/consciousness: patient oriented x3 L imitations: no limitations HEENT: Other: Mild tenderness palpation along the nasal bridge. No septal hematoma noted. Head: Yes normal to inspection, Yes normocephalic and Yes atraumatic E ars: hearing grossly normal bilaterally General nose exam: Normal external nose present Face and sinus: Yes normal facial exam Mouth: Normal oral and palatal mucosa present, oropharynx normal and moist mucous membranes Throat: Yes posterior oropharynx normal Eyes: General: appearance normal, both eyes and all related structures E yelids: Yes eyelids normal Conjunctivae: conjunctivae normal Sclerae: s clerae normal Pupils: Equal, round and reactive pupils present EOM: EOMs intact bilaterally Neck: Other: No cervical midline spine tenderness on examination. Neck: Yes normal visual inspection, Yes full ROM and Yes no lymphadenopathy Lymphatic: no lymphadenopathy noted Chest: Chest palpation & inspection: normal inspection of the chest Resp: Effort & Inspection: normal respiratory effort and able to speak in complete sentences Auscultation: clear to auscultation bilaterally, no crackles, no rales, no rhonchi and no wheezes Cardio: Rate: regular rate Rhythm: regular rhythm Heart sounds: S1 normal heart sound present and S2 normal heart sound present GI: Other: Abdomen is soft, nontender, nondistended. No ecchymosis seen. Inspection: Yes normal to inspection Skin: General skin exam: no rashes or lesions noted Trauma: no lacerations or abrasions Wounds: no wounds Neuro: General: patient oriented x3 and moves all extremities Cranial nerves: Yes Equal, round and reactive pupils present Extrem: Other: Left shoulder with old ecchymosis seen, mildly tender, full ROM, no bony step- off or deformity. General: Yes normal to inspection Right upper extremity: normal to inspection Left upper extremity: normal to inspection Right lower extremity: normal to inspection Left lower extremity: normal to inspection Psych: Appearance: well kempt Speech and movement: Restless speech present Affect: Anxious affect present Attitude: Guarded attititude/behavior present and Avoids eye contact (attititude/behavior) Thought process: Normal thought process present Thought content: Suicidality present Insight: Poor insight present (Psych) Judgement: Poor judgement present (Psych) Objective Data Active Medications Amlodipine Besylate (Amlodipine Besylate 10 Mg Tablet) 10 mg PO DAILY [facility]; Protocol Last Admin: 04/04/25 07:36 Dose: 10 mg Documented By: GUADALUPE Chlordiazepoxide HCl (Chlordiazepoxide Hcl 5 Mg Capsule) 10 mg PO TID PRN PRN Reason: Alcohol Withdrawal Last Admin: 04/04/25 15:09 Dose: 10 mg Documented By: GENE Comments: Administered per Dr Wong Ezetimibe (Ezetimibe 10 Mg Tablet) 10 mg PO DAILY [facility] Last Admin: 04/04/25 07:35 Dose: 10 mg Documented By: GUADALUPE Escitalopram Oxalate (Escitalopram Oxalate 20 Mg Tablet) 20 mg PO BEDTIME [facility] Last Admin: 04/04/25 21:23 Dose: 20 mg Documented By: SHEKHAR Fenofibrate (Fenofibrate 160 Mg Tablet) 160 mg PO DAILY [facility] Last Admin: 04/04/25 07:35 Dose: 160 mg Documented By: GUADALUPE Heparin Sodium (Porcine) (Heparin Sodium,Porcine 5,000 Unit/Ml Vial) 5,000 unit SUBCUT Q8H [facility] Last Admin: 04/05/25 06:25 Dose: 5,000 unit Documented By: SHEKHAR Magnesium Sulfate/Dextrose (Magnesium Sulfate/D5w) 1 gm in 100 mls @ 100 mls/hr IV ONCE ONE Stop: 04/05/25 08:13 Ketorolac Tromethamine (Ketorolac Tromethamine 15 Mg/Ml Vial) 15 mg IVPUSH Q6H PRN PRN Reason: Pain, Moderate(Pain Scale 4-6) Last Admin: 04/02/25 22:01 Dose: 15 mg Documented By: RICA Lurasidone HCl (Lurasidone Hcl 40 Mg Tablet) 40 mg PO DAILY [facility] Last Admin: 04/04/25 07:36 Dose: 40 mg Documented By: GUADALUPE Metoprolol Tartrate (Metoprolol Tartrate 5 Mg/5 Ml Vial) 5 mg IVPUSH Q6H PRN; Protocol PRN Reason: SBP > 150 Last Admin: 04/02/25 00:11 Dose: 5 mg Documented By: СВЕТЛАНА Olanzapine (Olanzapine 10 Mg Vial) 5 mg IM BID PRN PRN Reason: Anxiety Last Admin: 04/04/25 21:46 Dose: 5 mg Documented By: SHEKHAR Comments: early dose ok per PA Ondansetron HCl (Ondansetron Hcl 4 Mg/2 Ml Vial) 4 mg IVPUSH Q6H PRN PRN Reason: Nausea and Vomiting Last Admin: 04/02/25 07:11 Dose: 4 mg Documented By: NATHANIEL Topiramate (Topiramate 25 Mg Tablet) 50 mg PO BEDTIME [facility] Last Admin: 04/04/25 21:23 Dose: 50 mg Documented By: SHEKHAR Trazodone HCl (Trazodone Hcl 100 Mg Tablet) 100 mg PO BEDTIME [facility] Last Admin: 04/04/25 21:23 Dose: 100 mg Documented By: SHEKHAR Labs 04/05/25 05:34 04/05/25 05:34 Labs: Laboratory Results - last 24 hr 04/04/25 04/04/25 04/04/25 08:15 10:13 11:07 MCV MCH MCHC RDW Plt Count MPV Immature Gran % (Auto) Neut % (Auto) Lymph % (Auto) Brooke % (Auto) Eos % (Auto) Baso % (Auto) Lymph # (Auto) Brooke # (Auto) Eos # (Auto) Baso # (Auto) Abs Immat Gran (auto) Absolute Neuts (auto) Absolute Nucleated RBC Nucleated RBC % (auto) Anion Gap Estim Creat Clear Calc Estimated GFR POC Glucose 130 H 151 H Random Glucose Calcium Magnesium Total Bilirubin AST ALT Alkaline Phosphatase Total Protein Albumin Triglycerides 1350 H 04/04/25 04/04/25 04/04/25 12:01 16:12 18:31 MCV MCH MCHC RDW Plt Count MPV Immature Gran % (Auto) Neut % (Auto) Lymph % (Auto) Brooke % (Auto) Eos % (Auto) Baso % (Auto) Lymph # (Auto) Brooke # (Auto) Eos # (Auto) Baso # (Auto) Abs Immat Gran (auto) Absolute Neuts (auto) Absolute Nucleated RBC Nucleated RBC % (auto) Anion Gap Estim Creat Clear Calc Estimated GFR POC Glucose 123 H 160 H Random Glucose Calcium Magnesium Total Bilirubin AST ALT Alkaline Phosphatase Total Protein Albumin Triglycerides 1567 H 04/04/25 04/05/25 04/05/25 20:22 05:34 05:34 MCV 89.0 MCH 31.4 MCHC 35.3 RDW 14.0 Plt Count 227 D MPV 9.7 Immature Gran % (Auto) Cancelled Neut % (Auto) Cancelled Lymph % (Auto) Cancelled Brooke % (Auto) Cancelled Eos % (Auto) Cancelled Baso % (Auto) Cancelled Lymph # (Auto) Cancelled Brooke # (Auto) Cancelled Eos # (Auto) Cancelled Baso # (Auto) Cancelled Abs Immat Gran (auto) Cancelled Absolute Neuts (auto) Cancelled Absolute Nucleated RBC 0.020 H Nucleated RBC % (auto) 0.3 H Anion Gap Cancelled 15 Estim Creat Clear Calc Cancelled Estimated GFR POC Glucose 170 H Random Glucose Calcium Magnesium Total Bilirubin AST ALT Alkaline Phosphatase Total Protein Albumin Triglycerides 04/05/25 04/05/25 04/05/25 05:34 05:34 05:34 MCV MCH MCHC RDW Plt Count MPV Immature Gran % (Auto) Neut % (Auto) Lymph % (Auto) Brooke % (Auto) Eos % (Auto) Baso % (Auto) Lymph # (Auto) Brooke # (Auto) Eos # (Auto) Baso # (Auto) Abs Immat Gran (auto) Absolute Neuts (auto) Absolute Nucleated RBC Nucleated RBC % (auto) Anion Gap Estim Creat Clear Calc 99.2 Estimated GFR Cancelled > 60 POC Glucose Random Glucose Cancelled 124 H Calcium Cancelled Magnesium Total Bilirubin AST ALT Alkaline Phosphatase Total Protein Albumin Triglycerides 04/05/25 04/05/25 04/05/25 05:34 05:34 05:34 MCV MCH MCHC RDW Plt Count MPV Immature Gran % (Auto) Neut % (Auto) Lymph % (Auto) Brooke % (Auto) Eos % (Auto) Baso % (Auto) Lymph # (Auto) Brooke # (Auto) Eos # (Auto) Baso # (Auto) Abs Immat Gran (auto) Absolute Neuts (auto) Absolute Nucleated RBC Nucleated RBC % (auto) Anion Gap Estim Creat Clear Calc Estimated GFR POC Glucose Random Glucose Calcium 9.1 Magnesium 1.5 L Total Bilirubin Cancelled 0.8 AST Cancelled 283 H ALT Cancelled Alkaline Phosphatase Total Protein Albumin Triglycerides 04/05/25 04/05/25 04/05/25 05:34 05:34 05:34 MCV MCH MCHC RDW Plt Count MPV Immature Gran % (Auto) Neut % (Auto) Lymph % (Auto) Brooke % (Auto) Eos % (Auto) Baso % (Auto) Lymph # (Auto) Brooke # (Auto) Eos # (Auto) Baso # (Auto) Abs Immat Gran (auto) Absolute Neuts (auto) Absolute Nucleated RBC Nucleated RBC % (auto) Anion Gap Estim Creat Clear Calc Estimated GFR POC Glucose Random Glucose Calcium Magnesium Total Bilirubin AST ALT 144 H Alkaline Phosphatase Cancelled 120 H Total Protein Cancelled 6.4 L Albumin Cancelled Triglycerides 04/05/25 04/05/25 05:34 05:34 MCV MCH MCHC RDW Plt Count MPV Immature Gran % (Auto) Neut % (Auto) Lymph % (Auto) Brooke % (Auto) Eos % (Auto) Baso % (Auto) Lymph # (Auto) Brooke # (Auto) Eos # (Auto) Baso # (Auto) Abs Immat Gran (auto) Absolute Neuts (auto) Absolute Nucleated RBC Nucleated RBC % (auto) Anion Gap Estim Creat Clear Calc Estimated GFR POC Glucose Random Glucose Calcium Magnesium Total Bilirubin AST ALT Alkaline Phosphatase Total Protein Albumin 3.1 L Triglycerides Cancelled 1498 H Assessment and Plan (1) Major depressive disorder, recurrent severe without psychotic features: Status: Acute Plan 64-year-old male with underlying history of anxiety and depression, who presented to the emergency room with suicidal ideations.? He also has a history of hypertension, hyperlipidemia, type 2 diabetes, alcohol abuse.? Reportedly the patient has started to have suicidal thoughts 3-4 days ago however did not have a plan. Apparently patient had stopped taking his oral medications a week prior to admission, last alcohol was in AM of admission but alcohol levels negative Major depression: Suicidal ideation: Anxiety: On as needed Zyprexa 5 mg IM Continue home Latuda, topiramate, escitalopam and trazadone Psychiatry advised that patient does not have active suicidal ideation so does not need a 1:1 sitter. We will need care team eval prior to discharge Hypertriglyceridemia: Patient was treated with insulin drip while in the ICU, currently off, currently with insulin, ezetimibe, fenofibrate Triglyceride level trending down 5253 upon admission, down to 1498 this morning. Patient was admitted to [facility] few years ago, was treated with insulin drip for over a week for hypertriglyceridemia but couldnt get it below 1000, so was eventually stopped and discharged home. Alcohol related liver disease: AST and ALT trending down, from thousands to 200s, and downtrending Patient was on phenobarb for alcohol withdrawal stopped due to significant transaminitis; currently on as needed chlordiazepoxide On thiamine and folic acid supplement, which we will switch to oral medications CT abdomen showing enlarged liver with cholestasis-outpatient will hold off on statins until LFT is less than 3 times the upper limit Hypertension: on amlodipine 10mg. Hypomagnesemia - repleting to goal. Patient we will continue to stay inpatient as he needs to have ongoing care, clearance by care team prior to discharge, repletion of dangerous electrolyte abnormalities. Patient has severe anxiety and agitation also need to be addressed and given resources prior to discharge. This note is constructed using voice recognition software. While every effort has been made to ensure accuracy, railroad purchasing agent errors may have been included. Quality Stroke Does the patient have a stroke diagnosis?: No VTE Prior VTE?: No VTE Risk Level:: Medical - moderate - high VTE Device Contraindication: N/A - Device Ordered VTE Drug Contraindication: N/A - Med Ordered
[2025-04-05 07:27] LABS: White Blood Count 6.3 X10*3/uL (4.8-10.8)
[2025-04-05 07:40] LABS: Glucose, Whole Blood 118 mg/dL (60-115)
[2025-04-05 08:09] LABS: Band Neutrophils Percent 2 % (3-5); Basophils Abs Manual 0.1 X10*3/uL (0.0-0.2); Basophils Percent Manual 1 % (0-2); Eosinophils Absolute Manual 0.1 X10*3/uL (0.0-0.4); Eosinophils Percent Manual 2 % (0-4); Lymphocytes Absolute Manual 3.2 X10*3/uL (1.2-4.9); Lymphocytes Percent Manual 51 % (20-40); Metamyelocytes Absolute 0.2 X10*3/uL; Metamyelocytes Percent 3 %; Monocytes Absolute Manual 0.4 X10*3/uL (0.1-1.2); Monocytes Percent Manual 6 % (2-11); Myelocytes Absolute 0.3 X10*/uL; Myelocytes Percent 5 %; Neutrophils Absolute Manual 2.0 X10*3/uL (2.0-8.3); Neutrophils Percent Manual 30 % (45-73)
[2025-04-05 08:10] LABS: RBC Morphology NOTED
[2025-04-05 08:11] LABS: Polychromasia 1+ (0-2) /OIF; Target Cells 1+ (5-14) /OIF
[2025-04-05 09:03] VITALS: BP 134/82
[2025-04-05] MEDS: OLANZapine 10 MG VIAL 5 MG IM ×2 (09:21→21:17)
[2025-04-05 11:16] LABS: Glucose, Whole Blood 146 mg/dL (60-115)
[2025-04-05 16:00] VITALS: BP 139/83; PULSE 90; RESP 18; TEMP 36.2; O2SAT 93
[2025-04-05 16:31] LABS: Glucose, Whole Blood 156 mg/dL (60-115)
[2025-04-05 19:28] LABS: Glucose, Whole Blood 178 mg/dL (60-115)
[2025-04-05 19:40] VITALS: BP 135/70; PULSE 96; RESP 18; TEMP 36.6; O2SAT 97
[2025-04-06 03:18] VITALS: BP 102/60; PULSE 88; RESP 18; TEMP 36.2; O2SAT 92
[2025-04-06 07:29] VITALS: BP 107/55; PULSE 94; RESP 16; TEMP 36.6; O2SAT 96
[2025-04-06 07:35] LABS: Glucose, Whole Blood 132 mg/dL (60-115)
[2025-04-06 07:38] LABS: Hematocrit 37.0 % (42.0-52.0); Hemoglobin 13.1 g/dl (14.0-18.0); Mean Corpuscular HGB Conc 35.4 g/dl (31.0-36.0); Mean Corpuscular Hemoglobin 31.6 pg (27.0-33.0); Mean Corpuscular Volume 89.2 fL (80.0-98.0); NRBC Abs Auto 0.050 X10*3/uL (0.0-0.012); NRBC Pct Auto 0.6 /100WBC (0.0-0.2); Platelet Count 239 X10*3/uL (160-400); Red Blood Count 4.15 X10*6/uL (4.60-5.80); White Blood Count 8.0 X10*3/uL (4.8-10.8)
[2025-04-06 08:15] LABS: Alanine Aminotransferase 111 U/L (0-40); Albumin Level 3.1 g/dL (3.5-5.0); Alkaline Phosphatase 106 U/L (39-117); Anion Gap 14 (12-20); Aspartate Amino Transferase 180 U/L (5-37); Blood Urea Nitrogen 12 mg/dL (9-16); Calcium 8.9 mg/dL (8.4-10.2); Carbon Dioxide 22 mmol/L (22-29); Chloride 104 mmol/L (96-108); Creatinine Clr Calc Pharmacy 101.4; Estimated Glomerular Filt Rate > 60; Magnesium 1.6 mg/dL (1.6-2.6); Potassium 3.5 mmol/L (3.3-5.1); Sodium 136 mmol/L (135-145); Total Protein 6.4 g/dL (6.5-8.0)
[2025-04-06 08:37] LABS: Triglycerides 1554 mg/dL (<150)
[2025-04-06 08:51] LABS: Band Neutrophils Percent 3 % (3-5); Basophils Abs Manual 0.1 X10*3/uL (0.0-0.2); Basophils Percent Manual 1 % (0-2); Eosinophils Absolute Manual 0.3 X10*3/uL (0.0-0.4); Eosinophils Percent Manual 4 % (0-4); Lymphocytes Absolute Manual 2.8 X10*3/uL (1.2-4.9); Lymphocytes Percent Manual 35 % (20-40); Metamyelocytes Absolute 0.2 X10*3/uL; Metamyelocytes Percent 3 %; Monocytes Absolute Manual 0.8 X10*3/uL (0.1-1.2); Monocytes Percent Manual 10 % (2-11); Myelocytes Absolute 0.3 X10*/uL; Myelocytes Percent 4 %; Neutrophils Absolute Manual 3.4 X10*3/uL (2.0-8.3); Neutrophils Percent Manual 40 % (45-73)
[2025-04-06 08:53] LABS: RBC Morphology NOTED
[2025-04-06 08:54] LABS: Polychromasia 1+ (0-2) /OIF
[2025-04-06] MEDS: OLANZapine 10 MG VIAL 5 MG IM ×2 (10:00→20:22)
[2025-04-06 11:07] LABS: Glucose, Whole Blood 141 mg/dL (60-115)
[2025-04-06 15:18] VITALS: BP 132/77; PULSE 84; RESP 14; TEMP 36.4; O2SAT 96
--- NOTE | 2025-04-06 16:02 | HO.PSYCHPN ---
Subjective Subjective Date of Service: 04/06/25 Reason For Visit: Hyperglyceremia Healthcare Proxy: No Guardianship: No Medical Problems Affecting Mental Status: No Interim History: Psychiatry was asked to follow up on patient who was originally seen on 04/02/25. Medical record reviewed; case discussed with hospital medicine. Patient reports he has been feeling better since admission. He reports starting Latuda and Lexapro has been helpful. He denies SI. He reports he would like help with referrals to substance use treatment programs. He has no outpatient providers at this time. He has been stabilizing medically and is close to [place]. Review of Systems Review of Systems Constitutional: Denies fatigue and Denies fever(s) Cardiovascular: Denies chest pain and Denies dyspnea Respiratory: Denies dyspnea Gastrointestinal: Denies abdominal pain Psychiatric: denies suicidal ideation Endocrine: Denies fatigue Yes all other systems are reviewed and are negative Mental Status Exam Mental Status Exam Narrative: Appearance: [facility] [place], nasal cannula in place. grooming/hygiene wnl. eye contact wnl Attitude: Cooperative Speech: Fluent and wnl in regard to volume, tone, prosody Motor activity: Calm and without any tics, tremors or dyskinesias. Mood: better Affect: appropriate, reactive, constricted Thought process: goal directed and without evidence of formal thought disorder Thought content: No SI. Denies plan/intent to harm self. Denies violent ideation Perception: Denies AH/VH and does not appear to respond to internal stimuli Insight: intact Judgment: intact Diagnostics Vital Signs (24Hr): Vital Signs - 24 hr 04/05/25 19:40 04/06/25 03:18 04/06/25 07:29 Temperature 97.8 F 97.2 F 97.9 F Pulse Rate 96 88 94 Respiratory Rate 18 18 16 Blood Pressure 135/70 102/60 107/55 L Pulse Oximetry 97 92 96 Oxygen Delivery Method Room Air Room Air Room Air 04/06/25 15:18 Temperature 97.5 F Pulse Rate 84 Respiratory Rate 14 Blood Pressure 132/77 Pulse Oximetry 96 Oxygen Delivery Method Room Air BMI result Body Mass Index 37.1 Labs 04/06/25 06:26 04/06/25 06:26 Labs: Laboratory Results - last 48 hr 04/04/25 04/04/25 04/04/25 16:12 18:31 20:22 WBC RBC Hgb Hct MCV MCH MCHC RDW Plt Count MPV Immature Gran % (Auto) Neut % (Auto) Lymph % (Auto) [place] % (Auto) Eos % (Auto) Baso % (Auto) Lymph # (Auto) [place] # (Auto) Eos # (Auto) Baso # (Auto) Abs Immat Gran (auto) Absolute Neuts (auto) Absolute Nucleated RBC Nucleated RBC % (auto) Neutrophils % (Manual) Band Neutrophils % Lymphocytes % (Manual) Monocytes % (Manual) Eosinophils % (Manual) Basophils % (Manual) Metamyelocytes % Myelocytes % Abs Neuts (Manual) Lymphocytes # (Manual) Monocytes # (Manual) Eosinophils # (Manual) Basophils # (Manual) Metamyelocytes # Myelocytes # Platelet Estimate Plt Morphology Comment RBC Morphology Polychromasia Target Cells Sodium Potassium Chloride Carbon Dioxide Anion Gap BUN Creatinine Estim Creat Clear Calc Estimated GFR POC Glucose 160 H 170 H Random Glucose Calcium Magnesium Total Bilirubin AST ALT Alkaline Phosphatase Total Protein Albumin Triglycerides 1567 H 04/05/25 04/05/25 04/05/25 05:34 05:34 05:34 WBC 6.3 RBC 4.20 L Hgb 13.2 L Hct 37.4 L MCV 89.0 MCH 31.4 MCHC 35.3 RDW 14.0 Plt Count 227 D MPV 9.7 Immature Gran % (Auto) Cancelled Neut % (Auto) Cancelled Lymph % (Auto) Cancelled [place] % (Auto) Cancelled Eos % (Auto) Cancelled Baso % (Auto) Cancelled Lymph # (Auto) Cancelled [place] # (Auto) Cancelled Eos # (Auto) Cancelled Baso # (Auto) Cancelled Abs Immat Gran (auto) Cancelled Absolute Neuts (auto) Cancelled Absolute Nucleated RBC 0.020 H Nucleated RBC % (auto) 0.3 H Neutrophils % (Manual) 30 L Band Neutrophils % 2 L Lymphocytes % (Manual) 51 H Monocytes % (Manual) 6 Eosinophils % (Manual) 2 Basophils % (Manual) 1 Metamyelocytes % 3 Myelocytes % 5 Abs Neuts (Manual) 2.0 Lymphocytes # (Manual) 3.2 Monocytes # (Manual) 0.4 Eosinophils # (Manual) 0.1 Basophils # (Manual) 0.1 Metamyelocytes # 0.2 Myelocytes # 0.3 Platelet Estimate NORMAL Plt Morphology Comment NORMAL RBC Morphology NOTED Polychromasia 1+ (0-2) Target Cells 1+ (5-14) Sodium Cancelled 138 Potassium Cancelled 3.8 Chloride Cancelled Carbon Dioxide Anion Gap BUN Creatinine Estim Creat Clear Calc Estimated GFR POC Glucose Random Glucose Calcium Magnesium Total Bilirubin AST ALT Alkaline Phosphatase Total Protein Albumin Triglycerides 04/05/25 04/05/25 04/05/25 05:34 05:34 05:34 WBC RBC Hgb Hct MCV MCH MCHC RDW Plt Count MPV Immature Gran % (Auto) Neut % (Auto) Lymph % (Auto) [place] % (Auto) Eos % (Auto) Baso % (Auto) Lymph # (Auto) [place] # (Auto) Eos # (Auto) Baso # (Auto) Abs Immat Gran (auto) Absolute Neuts (auto) Absolute Nucleated RBC Nucleated RBC % (auto) Neutrophils % (Manual) Band Neutrophils % Lymphocytes % (Manual) Monocytes % (Manual) Eosinophils % (Manual) Basophils % (Manual) Metamyelocytes % Myelocytes % Abs Neuts (Manual) Lymphocytes # (Manual) Monocytes # (Manual) Eosinophils # (Manual) Basophils # (Manual) Metamyelocytes # Myelocytes # Platelet Estimate Plt Morphology Comment RBC Morphology Polychromasia Target Cells Sodium Potassium Chloride 102 Carbon Dioxide Cancelled 25 Anion Gap Cancelled 15 BUN Cancelled Creatinine Estim Creat Clear Calc Estimated GFR POC Glucose Random Glucose Calcium Magnesium Total Bilirubin AST ALT Alkaline Phosphatase Total Protein Albumin Triglycerides 04/05/25 04/05/25 04/05/25 05:34 05:34 05:34 WBC RBC Hgb Hct MCV MCH MCHC RDW Plt Count MPV Immature Gran % (Auto) Neut % (Auto) Lymph % (Auto) [place] % (Auto) Eos % (Auto) Baso % (Auto) Lymph # (Auto) [place] # (Auto) Eos # (Auto) Baso # (Auto) Abs Immat Gran (auto) Absolute Neuts (auto) Absolute Nucleated RBC Nucleated RBC % (auto) Neutrophils % (Manual) Band Neutrophils % Lymphocytes % (Manual) Monocytes % (Manual) Eosinophils % (Manual) Basophils % (Manual) Metamyelocytes % Myelocytes % Abs Neuts (Manual) Lymphocytes # (Manual) Monocytes # (Manual) Eosinophils # (Manual) Basophils # (Manual) Metamyelocytes # Myelocytes # Platelet Estimate Plt Morphology Comment RBC Morphology Polychromasia Target Cells Sodium Potassium Chloride Carbon Dioxide Anion Gap BUN 10 Creatinine Cancelled 0.92 Estim Creat Clear Calc Cancelled 99.2 Estimated GFR Cancelled POC Glucose Random Glucose Calcium Magnesium Total Bilirubin AST ALT Alkaline Phosphatase Total Protein Albumin Triglycerides 04/05/25 04/05/25 04/05/25 05:34 05:34 05:34 WBC RBC Hgb Hct MCV MCH MCHC RDW Plt Count MPV Immature Gran % (Auto) Neut % (Auto) Lymph % (Auto) [place] % (Auto) Eos % (Auto) Baso % (Auto) Lymph # (Auto) [place] # (Auto) Eos # (Auto) Baso # (Auto) Abs Immat Gran (auto) Absolute Neuts (auto) Absolute Nucleated RBC Nucleated RBC % (auto) Neutrophils % (Manual) Band Neutrophils % Lymphocytes % (Manual) Monocytes % (Manual) Eosinophils % (Manual) Basophils % (Manual) Metamyelocytes % Myelocytes % Abs Neuts (Manual) Lymphocytes # (Manual) Monocytes # (Manual) Eosinophils # (Manual) Basophils # (Manual) Metamyelocytes # Myelocytes # Platelet Estimate Plt Morphology Comment RBC Morphology Polychromasia Target Cells Sodium Potassium Chloride Carbon Dioxide Anion Gap BUN Creatinine Estim Creat Clear Calc Estimated GFR > 60 POC Glucose Random Glucose Cancelled 124 H Calcium Cancelled 9.1 Magnesium 1.5 L Total Bilirubin Cancelled AST ALT Alkaline Phosphatase Total Protein Albumin Triglycerides 04/05/25 04/05/25 04/05/25 05:34 05:34 05:34 WBC RBC Hgb Hct MCV MCH MCHC RDW Plt Count MPV Immature Gran % (Auto) Neut % (Auto) Lymph % (Auto) [place] % (Auto) Eos % (Auto) Baso % (Auto) Lymph # (Auto) [place] # (Auto) Eos # (Auto) Baso # (Auto) Abs Immat Gran (auto) Absolute Neuts (auto) Absolute Nucleated RBC Nucleated RBC % (auto) Neutrophils % (Manual) Band Neutrophils % Lymphocytes % (Manual) Monocytes % (Manual) Eosinophils % (Manual) Basophils % (Manual) Metamyelocytes % Myelocytes % Abs Neuts (Manual) Lymphocytes # (Manual) Monocytes # (Manual) Eosinophils # (Manual) Basophils # (Manual) Metamyelocytes # Myelocytes # Platelet Estimate Plt Morphology Comment RBC Morphology Polychromasia Target Cells Sodium Potassium Chloride Carbon Dioxide Anion Gap BUN Creatinine Estim Creat Clear Calc Estimated GFR POC Glucose Random Glucose Calcium Magnesium Total Bilirubin 0.8 AST Cancelled 283 H ALT Cancelled 144 H Alkaline Phosphatase Cancelled Total Protein Albumin Triglycerides 04/05/25 04/05/25 04/05/25 05:34 05:34 05:34 WBC RBC Hgb Hct MCV MCH MCHC RDW Plt Count MPV Immature Gran % (Auto) Neut % (Auto) Lymph % (Auto) [place] % (Auto) Eos % (Auto) Baso % (Auto) Lymph # (Auto) [place] # (Auto) Eos # (Auto) Baso # (Auto) Abs Immat Gran (auto) Absolute Neuts (auto) Absolute Nucleated RBC Nucleated RBC % (auto) Neutrophils % (Manual) Band Neutrophils % Lymphocytes % (Manual) Monocytes % (Manual) Eosinophils % (Manual) Basophils % (Manual) Metamyelocytes % Myelocytes % Abs Neuts (Manual) Lymphocytes # (Manual) Monocytes # (Manual) Eosinophils # (Manual) Basophils # (Manual) Metamyelocytes # Myelocytes # Platelet Estimate Plt Morphology Comment RBC Morphology Polychromasia Target Cells Sodium Potassium Chloride Carbon Dioxide Anion Gap BUN Creatinine Estim Creat Clear Calc Estimated GFR POC Glucose Random Glucose Calcium Magnesium Total Bilirubin AST ALT Alkaline Phosphatase 120 H Total Protein Cancelled 6.4 L Albumin Cancelled 3.1 L Triglycerides Cancelled 04/05/25 04/05/25 04/05/25 05:34 07:24 11:12 WBC RBC Hgb Hct MCV MCH MCHC RDW Plt Count MPV Immature Gran % (Auto) Neut % (Auto) Lymph % (Auto) [place] % (Auto) Eos % (Auto) Baso % (Auto) Lymph # (Auto) [place] # (Auto) Eos # (Auto) Baso # (Auto) Abs Immat Gran (auto) Absolute Neuts (auto) Absolute Nucleated RBC Nucleated RBC % (auto) Neutrophils % (Manual) Band Neutrophils % Lymphocytes % (Manual) Monocytes % (Manual) Eosinophils % (Manual) Basophils % (Manual) Metamyelocytes % Myelocytes % Abs Neuts (Manual) Lymphocytes # (Manual) Monocytes # (Manual) Eosinophils # (Manual) Basophils # (Manual) Metamyelocytes # Myelocytes # Platelet Estimate Plt Morphology Comment RBC Morphology Polychromasia Target Cells Sodium Potassium Chloride Carbon Dioxide Anion Gap BUN Creatinine Estim Creat Clear Calc Estimated GFR POC Glucose 118 H 146 H Random Glucose Calcium Magnesium Total Bilirubin AST ALT Alkaline Phosphatase Total Protein Albumin Triglycerides 1498 H 04/05/25 04/05/25 04/06/25 16:22 19:16 06:26 WBC 8.0 RBC 4.15 L Hgb 13.1 L Hct 37.0 L MCV 89.2 MCH 31.6 MCHC 35.4 RDW 14.1 Plt Count 239 MPV 9.7 Immature Gran % (Auto) Cancelled Neut % (Auto) Cancelled Lymph % (Auto) Cancelled [place] % (Auto) Cancelled Eos % (Auto) Cancelled Baso % (Auto) Cancelled Lymph # (Auto) Cancelled [place] # (Auto) Cancelled Eos # (Auto) Cancelled Baso # (Auto) Cancelled Abs Immat Gran (auto) Cancelled Absolute Neuts (auto) Cancelled Absolute Nucleated RBC 0.050 H Nucleated RBC % (auto) 0.6 H Neutrophils % (Manual) 40 L Band Neutrophils % 3 Lymphocytes % (Manual) 35 Monocytes % (Manual) 10 Eosinophils % (Manual) 4 Basophils % (Manual) 1 Metamyelocytes % 3 Myelocytes % 4 Abs Neuts (Manual) 3.4 Lymphocytes # (Manual) 2.8 Monocytes # (Manual) 0.8 Eosinophils # (Manual) 0.3 Basophils # (Manual) 0.1 Metamyelocytes # 0.2 Myelocytes # 0.3 Platelet Estimate NORMAL Plt Morphology Comment NORMAL RBC Morphology NOTED Polychromasia 1+ (0-2) Target Cells Sodium 136 Potassium 3.5 Chloride 104 Carbon Dioxide 22 Anion Gap 14 BUN 12 Creatinine 0.90 Estim Creat Clear Calc 101.4 Estimated GFR > 60 POC Glucose 156 H 178 H Random Glucose 131 H Calcium 8.9 Magnesium 1.6 Total Bilirubin 0.7 AST 180 H ALT 111 H Alkaline Phosphatase 106 Total Protein 6.4 L Albumin 3.1 L Triglycerides 1554 H 04/06/25 04/06/25 07:32 11:04 WBC RBC Hgb Hct MCV MCH MCHC RDW Plt Count MPV Immature Gran % (Auto) Neut % (Auto) Lymph % (Auto) [place] % (Auto) Eos % (Auto) Baso % (Auto) Lymph # (Auto) [place] # (Auto) Eos # (Auto) Baso # (Auto) Abs Immat Gran (auto) Absolute Neuts (auto) Absolute Nucleated RBC Nucleated RBC % (auto) Neutrophils % (Manual) Band Neutrophils % Lymphocytes % (Manual) Monocytes % (Manual) Eosinophils % (Manual) Basophils % (Manual) Metamyelocytes % Myelocytes % Abs Neuts (Manual) Lymphocytes # (Manual) Monocytes # (Manual) Eosinophils # (Manual) Basophils # (Manual) Metamyelocytes # Myelocytes # Platelet Estimate Plt Morphology Comment RBC Morphology Polychromasia Target Cells Sodium Potassium Chloride Carbon Dioxide Anion Gap BUN Creatinine Estim Creat Clear Calc Estimated GFR POC Glucose 132 H 141 H Random Glucose Calcium Magnesium Total Bilirubin AST ALT Alkaline Phosphatase Total Protein Albumin Triglycerides Imaging Radiology Impressions: ITS Impressions Head CT 04/01/25 14:02 IMPRESSION: No acute intracranial abnormality. Suspected nasal bone fracture. Electronically signed by: Fredrick Weeks MD 04/01/2025 02:37 PM EST RP Chest X-Ray 04/01/25 14:13 IMPRESSION: No acute airspace disease. Electronically signed by: Maynor Song MD 04/01/2025 02:21 PM EST RP Medications Medications Current Medications Amlodipine Besylate (Amlodipine Besylate 10 Mg Tablet) 10 mg PO DAILY [facility] [place]; Protocol Last Admin: 04/06/25 09:01 Dose: 10 mg Chlordiazepoxide HCl (Chlordiazepoxide Hcl 5 Mg Capsule) 10 mg PO TID PRN PRN Reason: Alcohol Withdrawal Last Admin: 04/06/25 14:21 Dose: 10 mg Ezetimibe (Ezetimibe 10 Mg Tablet) 10 mg PO DAILY [facility] [place] Last Admin: 04/06/25 09:01 Dose: 10 mg Escitalopram Oxalate (Escitalopram Oxalate 20 Mg Tablet) 20 mg PO BEDTIME [facility] [place] Last Admin: 04/05/25 21:18 Dose: 20 mg Fenofibrate (Fenofibrate 160 Mg Tablet) 160 mg PO DAILY [facility] [place] Last Admin: 04/06/25 09:01 Dose: 160 mg Heparin Sodium (Porcine) (Heparin Sodium,Porcine 5,000 Unit/Ml Vial) 5,000 unit SUBCUT Q8H PAYAM Last Admin: 04/06/25 14:21 Dose: 5,000 unit Ketorolac Tromethamine (Ketorolac Tromethamine 15 Mg/Ml Vial) 15 mg IVPUSH Q6H PRN PRN Reason: Pain, Moderate(Pain Scale 4-6) Last Admin: 04/02/25 22:01 Dose: 15 mg Lurasidone HCl (Lurasidone Hcl 40 Mg Tablet) 40 mg PO DAILY [facility] [place] Last Admin: 04/06/25 09:01 Dose: 40 mg Metoprolol Tartrate (Metoprolol Tartrate 5 Mg/5 Ml Vial) 5 mg IVPUSH Q6H PRN; Protocol PRN Reason: SBP > 150 Last Admin: 04/02/25 00:11 Dose: 5 mg Olanzapine (Olanzapine 10 Mg Vial) 5 mg IM BID PRN PRN Reason: Anxiety Last Admin: 04/06/25 10:00 Dose: 5 mg Ondansetron HCl (Ondansetron Hcl 4 Mg/2 Ml Vial) 4 mg IVPUSH Q6H PRN PRN Reason: Nausea and Vomiting Last Admin: 04/02/25 07:11 Dose: 4 mg Topiramate (Topiramate 25 Mg Tablet) 50 mg PO BEDTIME PAYAM Last Admin: 04/05/25 21:18 Dose: 50 mg Trazodone HCl (Trazodone Hcl 100 Mg Tablet) 100 mg PO BEDTIME PAYAM Last Admin: 04/05/25 21:18 Dose: 100 mg Allergies Allergies Allergy/AdvReac Type Severity Reaction Status Date / Time No Known Allergies Allergy Verified 04/01/25 12:28 Assessment & Plan Assessment & Plan (1) Major depressive disorder, recurrent severe without psychotic features: Status: Acute Code(s): F33.2 - Major depressive disorder, recurrent severe without psychotic features (2) ANDREW (generalized anxiety disorder): Status: Resolved Code(s): F41.1 - Generalized anxiety disorder (3) Alcohol use: Status: Resolved Code(s): F10.90 - Alcohol use, unspecified, uncomplicated Plan 64-year-old male with underlying history of anxiety and depression, who presented to the emergency room with suicidal ideations.? He also has a history of hypertension, hyperlipidemia, type 2 diabetes, alcohol abuse.? Reportedly the patient has started to have suicidal thoughts 3-4 days ago however did not have a plan. Apparently patient had stopped taking his oral medications a week prior to admission, last alcohol was in AM of admission but alcohol levels negative Major depression: Suicidal ideation: Anxiety: On as needed Zyprexa 5 mg IM Continue home Latuda, topiramate, escitalopam and trazadone Psychiatry advised that patient does not have active suicidal ideation so does not need a 1:1 sitter. We will need care team eval prior to discharge 04/06: Suicidal ideation resolved. Patient interested in a program for treatment of alcohol dependence. Recommend CARE team evaluation. Patient educated on: diagnosis, medication risk/benefits, substance abuse and therapeutic strategies Informed Consent: understands Reason for continued inpatient stay Substantial Risk for: med/psych decompensation Time Spent With Patient Time: Total time managing care of this patient today ____ minutes.
[2025-04-06 16:09] LABS: Glucose, Whole Blood 186 mg/dL (60-115)
--- NOTE | 2025-04-06 17:19 | P.PNIM_ITS ---
Subjective Subjective Date of Service: 04/06/25 Interval History: Complaints of left hip pain after falling on Monday Denies increased anxiety No nausea, vomiting, abdominal pain Denies auditory or visual hallucinations Denies SI Triglycerides flat the past 2 days Review of Systems Review of Systems: Yes all other systems are reviewed and are negative Physical Exam 2 Exam: Exam: General: AOx3, no acute distress Resp: CTA bilaterally CVS: S1, S2, RRR GI: +BS, NT, no distention Skin: Warm, dry Neuro: Cranial nerves II-XII grossly intact bilaterally. Motor grossly intact bilaterally. Left leg weak, reduced ROM secondary to pain Extremities: No edema Psych: Subdued affect Vital Signs: Vital Signs: Last Vital Signs Temp 97.5 F 04/06/25 15:18 Pulse 84 04/06/25 15:18 Resp 14 04/06/25 15:18 BP 132/77 04/06/25 15:18 Pulse Ox 96 04/06/25 15:18 O2 Del Method Room Air 04/06/25 15:18 O2 Flow Rate 2 04/03/25 06:00 FiO2 25 04/04/25 06:00 BMI result Body Mass Index 37.1 Objective Data Active Medications Amlodipine Besylate (Amlodipine Besylate 10 Mg Tablet) 10 mg PO DAILY [facility]; Protocol Last Admin: 04/06/25 09:01 Dose: 10 mg Documented By: DEBI Chlordiazepoxide HCl (Chlordiazepoxide Hcl 5 Mg Capsule) 10 mg PO TID PRN PRN Reason: Alcohol Withdrawal Last Admin: 04/06/25 14:21 Dose: 10 mg Documented By: DEBI Ezetimibe (Ezetimibe 10 Mg Tablet) 10 mg PO DAILY [facility] Last Admin: 04/06/25 09:01 Dose: 10 mg Documented By: DEBI Escitalopram Oxalate (Escitalopram Oxalate 20 Mg Tablet) 20 mg PO BEDTIME [facility] Last Admin: 04/05/25 21:18 Dose: 20 mg Documented By: SHEKHAR Fenofibrate (Fenofibrate 160 Mg Tablet) 160 mg PO DAILY [facility] Last Admin: 04/06/25 09:01 Dose: 160 mg Documented By: DEBI Heparin Sodium (Porcine) (Heparin Sodium,Porcine 5,000 Unit/Ml Vial) 5,000 unit SUBCUT Q8H [facility] Last Admin: 04/06/25 14:21 Dose: 5,000 unit Documented By: DEBI Ketorolac Tromethamine (Ketorolac Tromethamine 15 Mg/Ml Vial) 15 mg IVPUSH Q6H PRN PRN Reason: Pain, Moderate(Pain Scale 4-6) Last Admin: 04/02/25 22:01 Dose: 15 mg Documented By: RICA Lurasidone HCl (Lurasidone Hcl 40 Mg Tablet) 40 mg PO DAILY [facility] Last Admin: 04/06/25 09:01 Dose: 40 mg Documented By: DEBI Metoprolol Tartrate (Metoprolol Tartrate 5 Mg/5 Ml Vial) 5 mg IVPUSH Q6H PRN; Protocol PRN Reason: SBP > 150 Last Admin: 04/02/25 00:11 Dose: 5 mg Documented By: СВЕТЛАНА Olanzapine (Olanzapine 10 Mg Vial) 5 mg IM BID PRN PRN Reason: Anxiety Last Admin: 04/06/25 10:00 Dose: 5 mg Documented By: DEBI Ondansetron HCl (Ondansetron Hcl 4 Mg/2 Ml Vial) 4 mg IVPUSH Q6H PRN PRN Reason: Nausea and Vomiting Last Admin: 04/02/25 07:11 Dose: 4 mg Documented By: NATHANIEL Topiramate (Topiramate 25 Mg Tablet) 50 mg PO BEDTIME [facility] Last Admin: 04/05/25 21:18 Dose: 50 mg Documented By: SHEKHAR Trazodone HCl (Trazodone Hcl 100 Mg Tablet) 100 mg PO BEDTIME [facility] Last Admin: 04/05/25 21:18 Dose: 100 mg Documented By: SHEKHAR Labs 04/06/25 06:26 04/06/25 06:26 Labs: Laboratory Results - last 24 hr 04/05/25 04/06/25 04/06/25 19:16 06:26 07:32 MCV 89.2 MCH 31.6 MCHC 35.4 RDW 14.1 Plt Count 239 MPV 9.7 Immature Gran % (Auto) Cancelled Neut % (Auto) Cancelled Lymph % (Auto) Cancelled [place] % (Auto) Cancelled Eos % (Auto) Cancelled Baso % (Auto) Cancelled Lymph # (Auto) Cancelled [place] # (Auto) Cancelled Eos # (Auto) Cancelled Baso # (Auto) Cancelled Abs Immat Gran (auto) Cancelled Absolute Neuts (auto) Cancelled Absolute Nucleated RBC 0.050 H Nucleated RBC % (auto) 0.6 H Neutrophils % (Manual) 40 L Band Neutrophils % 3 Lymphocytes % (Manual) 35 Monocytes % (Manual) 10 Eosinophils % (Manual) 4 Basophils % (Manual) 1 Metamyelocytes % 3 Myelocytes % 4 Abs Neuts (Manual) 3.4 Lymphocytes # (Manual) 2.8 Monocytes # (Manual) 0.8 Eosinophils # (Manual) 0.3 Basophils # (Manual) 0.1 Metamyelocytes # 0.2 Myelocytes # 0.3 Platelet Estimate NORMAL Plt Morphology Comment NORMAL RBC Morphology NOTED Polychromasia 1+ (0-2) Anion Gap 14 Estim Creat Clear Calc 101.4 Estimated GFR > 60 POC Glucose 178 H 132 H Random Glucose 131 H Calcium 8.9 Magnesium 1.6 Total Bilirubin 0.7 AST 180 H ALT 111 H Alkaline Phosphatase 106 Total Protein 6.4 L Albumin 3.1 L Triglycerides 1554 H 04/06/25 04/06/25 11:04 16:05 MCV MCH MCHC RDW Plt Count MPV Immature Gran % (Auto) Neut % (Auto) Lymph % (Auto) [place] % (Auto) Eos % (Auto) Baso % (Auto) Lymph # (Auto) [place] # (Auto) Eos # (Auto) Baso # (Auto) Abs Immat Gran (auto) Absolute Neuts (auto) Absolute Nucleated RBC Nucleated RBC % (auto) Neutrophils % (Manual) Band Neutrophils % Lymphocytes % (Manual) Monocytes % (Manual) Eosinophils % (Manual) Basophils % (Manual) Metamyelocytes % Myelocytes % Abs Neuts (Manual) Lymphocytes # (Manual) Monocytes # (Manual) Eosinophils # (Manual) Basophils # (Manual) Metamyelocytes # Myelocytes # Platelet Estimate Plt Morphology Comment RBC Morphology Polychromasia Anion Gap Estim Creat Clear Calc Estimated GFR POC Glucose 141 H 186 H Random Glucose Calcium Magnesium Total Bilirubin AST ALT Alkaline Phosphatase Total Protein Albumin Triglycerides Assessment and Plan (1) Alcohol use disorder: Status: Acute (2) Hypertriglyceridemia: Status: Acute Plan 64-year-old male with underlying history of anxiety and depression, who presented to the emergency room with suicidal ideations.? He also has a history of hypertension, hyperlipidemia, type 2 diabetes, alcohol abuse.? Reportedly the patient has started to have suicidal thoughts 3-4 days ago however did not have a plan. Apparently patient had stopped taking his oral medications a week prior to admission, last alcohol was in AM of admission but alcohol levels negative Hypertriglyceridemia Patient was treated with insulin drip while in the ICU, currently off, currently with insulin, ezetimibe, fenofibrate Triglyceride level trending down; 5253 upon admission, now around 1500 which is flat x3 days. This appears his baseline Patient was admitted to [facility] few years ago, was treated with insulin drip for over a week for hypertriglyceridemia but couldn't get it below 1000, so was eventually stopped and discharged home Trend labs Major depression with SI Initially presented to ED with vague SI Currently denies SI On as needed Zyprexa 5 mg IM Continue home Latuda, topiramate, escitalopam and trazadone Psychiatry advised that patient does not have active suicidal ideation so does not need a 1:1 sitter; no need for inpatient psychiatric care Care team eval prior to discharge Alcohol related liver disease AST and ALT trending down, from thousands to 200s, and downtrending Patient was on phenobarb for alcohol withdrawal stopped due to significant transaminitis; currently on as needed chlordiazepoxide On thiamine and folic acid supplements CT abdomen showing enlarged liver with cholestasis-outpatient monitoring and additional workup Will hold off on statins until LFT is less than 3 times the upper limit Pt interested in treatment programs for alcohol dependence Hypertension: Continue amlodipine 10mg. Hypomagnesemia, resolved Repleted, monitor Patient we will continue to stay inpatient as he needs to have ongoing care, clearance by care team prior to discharge, repletion of dangerous electrolyte abnormalities. Patient has severe anxiety and agitation also need to be addressed and given resources prior to discharge. Quality Stroke Does the patient have a stroke diagnosis?: No VTE Prior VTE?: No VTE Risk Level:: Medical - moderate - high VTE Device Contraindication: N/A - Device Ordered VTE Drug Contraindication: N/A - Med Ordered
[2025-04-06 20:00] VITALS: BP 137/74; PULSE 90; RESP 18; TEMP 36.1; O2SAT 96
[2025-04-06 20:06] LABS: Glucose, Whole Blood 208 mg/dL (60-115)
[2025-04-07 03:11] VITALS: BP 120/62; PULSE 93; RESP 18; TEMP 36.6; O2SAT 93
[2025-04-07 06:22] LABS: Hematocrit 36.4 % (42.0-52.0); Hemoglobin 12.7 g/dl (14.0-18.0); Mean Corpuscular HGB Conc 34.9 g/dl (31.0-36.0); Mean Corpuscular Hemoglobin 31.8 pg (27.0-33.0); Mean Corpuscular Volume 91.0 fL (80.0-98.0); NRBC Abs Auto 0.050 X10*3/uL (0.0-0.012); NRBC Pct Auto 0.6 /100WBC (0.0-0.2); Platelet Count 246 X10*3/uL (160-400); Red Blood Count 4.00 X10*6/uL (4.60-5.80)
[2025-04-07 06:24] LABS: WBC ABN SCTR FOR CBC 1
[2025-04-07 06:43] LABS: White Blood Count 9.0 X10*3/uL (4.8-10.8)
[2025-04-07 06:47] VITALS: BP 114/57; PULSE 85; RESP 18; TEMP 36.6; O2SAT 95
[2025-04-07 06:51] LABS: Alanine Aminotransferase 100 U/L (0-40); Albumin Level 3.1 g/dL (3.5-5.0); Alkaline Phosphatase 103 U/L (39-117); Anion Gap 15 (12-20); Aspartate Amino Transferase 134 U/L (5-37); Blood Urea Nitrogen 12 mg/dL (9-16); Calcium 8.8 mg/dL (8.4-10.2); Carbon Dioxide 21 mmol/L (22-29); Chloride 105 mmol/L (96-108); Creatinine Clr Calc Pharmacy 103.7; Estimated Glomerular Filt Rate > 60; Magnesium 1.6 mg/dL (1.6-2.6); Potassium 3.8 mmol/L (3.3-5.1); Sodium 137 mmol/L (135-145); Total Protein 6.5 g/dL (6.5-8.0); Triglycerides 1502 mg/dL (<150)
[2025-04-07 07:07] LABS: Glucose, Whole Blood 115 mg/dL (60-115)
[2025-04-07 07:19] LABS: Band Neutrophils Percent 4 % (3-5); Basophils Abs Manual 0.1 X10*3/uL (0.0-0.2); Basophils Percent Manual 1 % (0-2); Eosinophils Absolute Manual 0.3 X10*3/uL (0.0-0.4); Eosinophils Percent Manual 3 % (0-4); Lymphocytes Absolute Manual 2.6 X10*3/uL (1.2-4.9); Lymphocytes Percent Manual 29 % (20-40); Metamyelocytes Absolute 0.6 X10*3/uL; Metamyelocytes Percent 7 %; Monocytes Absolute Manual 0.4 X10*3/uL (0.1-1.2); Monocytes Percent Manual 4 % (2-11); Myelocytes Absolute 0.5 X10*/uL; Myelocytes Percent 6 %; Neutrophils Absolute Manual 4.4 X10*3/uL (2.0-8.3); Neutrophils Percent Manual 45 % (45-73); Promyelocytes Absolute 0.1 X10*3/uL; Promyelocytes Percent 1 %
[2025-04-07 07:22] LABS: RBC Morphology NOTED
[2025-04-07 07:23] LABS: Polychromasia 1+ (0-2) /OIF
[2025-04-07] MEDS: OLANZapine 10 MG VIAL 5 MG IM ×2 (08:12→19:28)
[2025-04-07 11:07] LABS: Glucose, Whole Blood 120 mg/dL (60-115)
--- NOTE | 2025-04-07 13:50 | PC.NURSE ---
Pt stated feeling suicidal. Pt states no active plan. Sitter placed in room. notified
--- NOTE | 2025-04-07 14:23 | MHC.RECOVRN ---
Met with Trever in [id number] following receiving an addiction consult for evaluation of AUD. Upon approach pt is calm, oriented & receptive to conversation. Pt with flat and depressed affect. Pt thought-process is logical & linear, speech is coherent but succinct. Pt endorses SI w/ vague plan. States he's been struggling with mental health difficulties for the past 20 yrs. MARY Saucedo & primary RN made aware. New orders for 1:1 sitter and CARE team eval obtained. Pt has a hx of numerous inpt psych admissions for similar concerns such as worsening depression, anxiety, suicidal thoughts, and psych meds not being effective. Pt also a has hx of AUD - particularly the past 8 years. He reports that for the past 2 months, he has been having 3-4 nips of vodka daily. Prior to this, pt states he was abstinent from alcohol for 2 years. During that time pt attended AA meetings which he fuond helpful. Pt has his own transportation and wants to resume AA meetings (After his SI & depression resolves/improves). Treatment options were discussed, including LIS, and inpatient & outpatient treatment (ATS, CSS, TSS, IOPs).? Pt believes that he needs inpatient psych treatment and perhaps AUD-specific treatment after. At this time he states he does not feel CSS or AUD-specific tx suffices. Pt is already on LIS- Naltrexone which he obtains from his psychiatrist. Pt however states he is in need of new psychiatric provider as he does not like how his current provider approaches things . During the assessment low-risk drinking guidelines were reviewed. Pt was counseled on specific harm-reduction strategies including setting a personal limit of no more than 1-2 drinks per occasion, alternating alcohol with water, pacing intake, and eating food prior to and during drinking.? Reviewed w/ pt the medical risks of heavy or daily use, including liver damage, gastrointestinal irritation, cardiovascular strain, and the dangers of abrupt withdrawal in dependent individuals.?Pt was advised on nutrition, hydration, and vitamin supplementation, including the potential benefit of daily thiamine and multivitamins if use continues at similar levels. Pt verbalized understanding. At this time pt denies any questions or concerns. ACS team available PRN.
--- NOTE | 2025-04-07 14:54 | MHC.CM.PN ---
PT eval recommendation is STR. T/w spoke with patient this morning, about discharge planning. He stated that he is interested in STR. He agreed to referrals being sent to facilities that accept his [employer] medicare advantage. Recovery team consult ordered. The RN met with the patient today too. She stated that she requested the provider order a Careteam consult. The patient made statements re SI during her assessment. DP Pending Careteam consult. IPLOC vs STR via BLS.
[2025-04-07 15:08] VITALS: BP 115/65; PULSE 77; RESP 18; TEMP 36.3; O2SAT 95
[2025-04-07 16:08] LABS: Glucose, Whole Blood 164 mg/dL (60-115)
--- NOTE | 2025-04-07 17:20 | P.PNIM_ITS ---
Subjective Subjective Date of Service: 04/07/25 Interval History: Continues to complain of lower back pain No numbness or tingling in extremities No change in bowel or bladder habits Seen by PT, set for STR Denied SI during morning rounds Endorsed SI to nurse in the afternoon Review of Systems Review of Systems: Yes all other systems are reviewed and are negative Physical Exam 2 Exam: Exam: General: AOx3, no acute distress Resp: CTA bilaterally CVS: S1, S2, RRR GI: +BS, NT, no distention Skin: Warm, dry Neuro: Cranial nerves II-XII grossly intact bilaterally. Motor grossly intact bilaterally. Left leg weak, reduced ROM secondary to pain Extremities: No edema Psych: Subdued affect Vital Signs: Vital Signs: Last Vital Signs Temp 97.4 F 04/07/25 15:08 Pulse 77 04/07/25 15:08 Resp 18 04/07/25 15:08 BP 115/65 04/07/25 15:08 Pulse Ox 95 04/07/25 15:08 O2 Del Method Room Air 04/07/25 15:08 O2 Flow Rate 2 04/03/25 06:00 FiO2 25 04/04/25 06:00 BMI result Body Mass Index 37.1 Objective Data Active Medications Amlodipine Besylate (Amlodipine Besylate 10 Mg Tablet) 10 mg PO DAILY [facility]; Protocol Last Admin: 04/07/25 08:13 Dose: 10 mg Documented By: EVERETT Atorvastatin Calcium (Atorvastatin Calcium 80 Mg Tablet) 80 mg PO DAILY [facility] Last Admin: 04/07/25 08:13 Dose: 80 mg Documented By: EVERETT Calcium Carbonate (Calcium Carbonate 750 Mg Tab.Chew) 750 mg PO Q4H PRN PRN Reason: Heartburn Last Admin: 04/07/25 14:25 Dose: 750 mg Documented By: EVERETT Chlordiazepoxide HCl (Chlordiazepoxide Hcl 5 Mg Capsule) 10 mg PO TID PRN PRN Reason: Alcohol Withdrawal Last Admin: 04/07/25 13:36 Dose: 10 mg Documented By: EVERETT Ezetimibe (Ezetimibe 10 Mg Tablet) 10 mg PO DAILY [facility] Last Admin: 04/07/25 08:13 Dose: 10 mg Documented By: EVERETT Escitalopram Oxalate (Escitalopram Oxalate 20 Mg Tablet) 20 mg PO BEDTIME [facility] Last Admin: 04/06/25 20:13 Dose: 20 mg Documented By: GEOVANI Fenofibrate (Fenofibrate 160 Mg Tablet) 160 mg PO DAILY [facility] Last Admin: 04/07/25 08:13 Dose: 160 mg Documented By: EVERETT Heparin Sodium (Porcine) (Heparin Sodium,Porcine 5,000 Unit/Ml Vial) 5,000 unit SUBCUT Q8H [facility] Last Admin: 04/07/25 13:36 Dose: 5,000 unit Documented By: EVERETT Ketorolac Tromethamine (Ketorolac Tromethamine 15 Mg/Ml Vial) 15 mg IVPUSH Q6H PRN PRN Reason: Pain, Moderate(Pain Scale 4-6) Last Admin: 04/07/25 14:22 Dose: 15 mg Documented By: EVERETT Lurasidone HCl (Lurasidone Hcl 40 Mg Tablet) 40 mg PO DAILY [facility] Last Admin: 04/07/25 08:13 Dose: 40 mg Documented By: EVERETT Metoprolol Tartrate (Metoprolol Tartrate 5 Mg/5 Ml Vial) 5 mg IVPUSH Q6H PRN; Protocol PRN Reason: SBP > 150 Last Admin: 04/02/25 00:11 Dose: 5 mg Documented By: СВЕТЛАНА Olanzapine (Olanzapine 10 Mg Vial) 5 mg IM BID PRN PRN Reason: Anxiety Last Admin: 04/07/25 08:12 Dose: 5 mg Documented By: EVERETT Omeprazole (Omeprazole 20 Mg Capsule.Dr) 20 mg PO BEDTIME [facility] Ondansetron HCl (Ondansetron Hcl 4 Mg/2 Ml Vial) 4 mg IVPUSH Q6H PRN PRN Reason: Nausea and Vomiting Last Admin: 04/02/25 07:11 Dose: 4 mg Documented By: NATHANIEL Topiramate (Topiramate 25 Mg Tablet) 50 mg PO BEDTIME [facility] Last Admin: 04/06/25 20:13 Dose: 50 mg Documented By: GEOVANI Trazodone HCl (Trazodone Hcl 100 Mg Tablet) 100 mg PO BEDTIME [facility] Last Admin: 04/06/25 20:13 Dose: 100 mg Documented By: GEOVANI Labs 04/07/25 05:59 04/07/25 05:59 Labs: Laboratory Results - last 24 hr 04/06/25 04/07/25 04/07/25 19:54 05:59 06:58 MCV 91.0 MCH 31.8 MCHC 34.9 RDW 13.8 Plt Count 246 MPV 9.7 Immature Gran % (Auto) Cancelled Neut % (Auto) Cancelled Lymph % (Auto) Cancelled [place] % (Auto) Cancelled Eos % (Auto) Cancelled Baso % (Auto) Cancelled Lymph # (Auto) Cancelled [place] # (Auto) Cancelled Eos # (Auto) Cancelled Baso # (Auto) Cancelled Abs Immat Gran (auto) Cancelled Absolute Neuts (auto) Cancelled Absolute Nucleated RBC 0.050 H Nucleated RBC % (auto) 0.6 H Neutrophils % (Manual) 45 Band Neutrophils % 4 Lymphocytes % (Manual) 29 Monocytes % (Manual) 4 Eosinophils % (Manual) 3 Basophils % (Manual) 1 Metamyelocytes % 7 Myelocytes % 6 Promyelocytes % 1 Abs Neuts (Manual) 4.4 Lymphocytes # (Manual) 2.6 Monocytes # (Manual) 0.4 Eosinophils # (Manual) 0.3 Basophils # (Manual) 0.1 Metamyelocytes # 0.6 Myelocytes # 0.5 Promyelocytes # 0.1 Nucleated RBCs 1 H Platelet Estimate NORMAL Plt Morphology Comment NORMAL RBC Morphology NOTED Polychromasia 1+ (0-2) Smear Path Review SEE NOTE Anion Gap 15 Estim Creat Clear Calc 103.7 Estimated GFR > 60 POC Glucose 208 H 115 Random Glucose 129 H Calcium 8.8 Magnesium 1.6 Total Bilirubin 0.5 AST 134 H ALT 100 H Alkaline Phosphatase 103 Total Protein 6.5 Albumin 3.1 L Triglycerides 1502 H 04/07/25 04/07/25 10:59 16:00 MCV MCH MCHC RDW Plt Count MPV Immature Gran % (Auto) Neut % (Auto) Lymph % (Auto) [place] % (Auto) Eos % (Auto) Baso % (Auto) Lymph # (Auto) [place] # (Auto) Eos # (Auto) Baso # (Auto) Abs Immat Gran (auto) Absolute Neuts (auto) Absolute Nucleated RBC Nucleated RBC % (auto) Neutrophils % (Manual) Band Neutrophils % Lymphocytes % (Manual) Monocytes % (Manual) Eosinophils % (Manual) Basophils % (Manual) Metamyelocytes % Myelocytes % Promyelocytes % Abs Neuts (Manual) Lymphocytes # (Manual) Monocytes # (Manual) Eosinophils # (Manual) Basophils # (Manual) Metamyelocytes # Myelocytes # Promyelocytes # Nucleated RBCs Platelet Estimate Plt Morphology Comment RBC Morphology Polychromasia Smear Path Review Anion Gap Estim Creat Clear Calc Estimated GFR POC Glucose 120 H 164 H Random Glucose Calcium Magnesium Total Bilirubin AST ALT Alkaline Phosphatase Total Protein Albumin Triglycerides Assessment and Plan (1) Hypertriglyceridemia: Status: Acute Plan 64-year-old male with underlying history of anxiety and depression, who presented to the emergency room with suicidal ideations.? He also has a history of hypertension, hyperlipidemia, type 2 diabetes, alcohol abuse.? Reportedly the patient has started to have suicidal thoughts 3-4 days ago however did not have a plan. Apparently patient had stopped taking his oral medications a week prior to admission, last alcohol was in AM of admission but alcohol levels negative Hypertriglyceridemia Patient was treated with insulin drip while in the ICU, currently off, currently with insulin, ezetimibe, fenofibrate Triglyceride level trending down; 5253 upon admission, now around 1500 which is flat x3 days. This appears his baseline Patient was admitted to [facility] few years ago, was treated with insulin drip for over a week for hypertriglyceridemia but couldn't get it below 1000, so was eventually stopped and discharged home Trend labs Major depression with SI Initially presented to ED with vague SI and required 1:1 sitter; then cleared as he denied SI Today initially denied SI during morning rounds, though again endorsed SI to nurse in the afternoon On as needed Zyprexa 5 mg IM Continue home Latuda, topiramate, escitalopam and trazadone Will re-institute 1:1 sitter Care team eval as pt now cleared for discharge Alcohol related liver disease AST and ALT trending down, from thousands to 200s, and downtrending Patient was on phenobarb for alcohol withdrawal stopped due to significant transaminitis; currently on as needed chlordiazepoxide On thiamine and folic acid supplements CT abdomen showing enlarged liver with cholestasis-outpatient monitoring and additional workup Will hold off on statins until LFT is less than 3 times the upper limit Pt interested in treatment programs for alcohol dependence Weakness, recent falls at home In the setting of AUD CT of abd/pelvis showing acute to subacute superior endplate compression fracture at L1 PT eval recommended STR Hypertension: Continue amlodipine 10mg. Hypomagnesemia, resolved Repleted, monitor Patient will require continued hospitalization for clearance by care team prior to discharge for safe disposition. Quality Stroke Does the patient have a stroke diagnosis?: No VTE Prior VTE?: No VTE Risk Level:: Medical - moderate - high VTE Device Contraindication: N/A - Device Ordered VTE Drug Contraindication: N/A - Med Ordered
[2025-04-07 20:00] VITALS: BP 129/73; PULSE 83; RESP 18; TEMP 36.4; O2SAT 92
[2025-04-07 20:03] LABS: Glucose, Whole Blood 157 mg/dL (60-115)
[2025-04-08 03:22] VITALS: BP 130/73; PULSE 88; RESP 18; TEMP 36.1; O2SAT 96
[2025-04-08 05:52] LABS: Hematocrit 37.1 % (42.0-52.0); Hemoglobin 13.0 g/dl (14.0-18.0); Mean Corpuscular HGB Conc 35.0 g/dl (31.0-36.0); Mean Corpuscular Hemoglobin 31.9 pg (27.0-33.0); Mean Corpuscular Volume 90.9 fL (80.0-98.0); NRBC Abs Auto 0.090 X10*3/uL (0.0-0.012); Platelet Count 265 X10*3/uL (160-400); Red Blood Count 4.08 X10*6/uL (4.60-5.80)
[2025-04-08 05:57] LABS: NRBC Pct Auto 1.1 /100WBC (0.0-0.2); WBC ABN SCTR FOR CBC 1
[2025-04-08 06:12] LABS: Alanine Aminotransferase 83 U/L (0-40); Albumin Level 3.3 g/dL (3.5-5.0); Alkaline Phosphatase 95 U/L (39-117); Anion Gap 12 (12-20); Aspartate Amino Transferase 104 U/L (5-37); Blood Urea Nitrogen 15 mg/dL (9-16); Calcium 8.9 mg/dL (8.4-10.2); Carbon Dioxide 23 mmol/L (22-29); Chloride 107 mmol/L (96-108); Creatinine Clr Calc Pharmacy 103.7; Estimated Glomerular Filt Rate > 60; Magnesium 1.7 mg/dL (1.6-2.6); Potassium 4.3 mmol/L (3.3-5.1); Sodium 138 mmol/L (135-145); Total Protein 6.7 g/dL (6.5-8.0)
[2025-04-08 06:34] LABS: Atypical Lymphs Percent Manual 1 % (0-6); Band Neutrophils Percent 5 % (3-5); Basophils Percent Manual 1 % (0-2); Eosinophils Percent Manual 1 % (0-4); Lymphocytes Percent Manual 40 % (20-40); Metamyelocytes Percent 7 %; Monocytes Percent Manual 4 % (2-11); Myelocytes Percent 8 %; Neutrophils Percent Manual 32 % (45-73); Promyelocytes Percent 1 %
[2025-04-08 06:39] LABS: Large Platelet PRESENT; Polychromasia 1+ (0-2) /OIF; RBC Morphology NOTED; Tear Drop Cells 1+ (0-2) /OIF
[2025-04-08 06:40] LABS: Atypical Lymph Absolute Manual 0.1 x10*3/uL; Basophils Abs Manual 0.1 X10*3/uL (0.0-0.2); Eosinophils Absolute Manual 0.1 X10*3/uL (0.0-0.4); Lymphocytes Absolute Manual 3.2 X10*3/uL (1.2-4.9); Metamyelocytes Absolute 0.6 X10*3/uL; Monocytes Absolute Manual 0.3 X10*3/uL (0.1-1.2); Myelocytes Absolute 0.6 X10*/uL; Neutrophils Absolute Manual 2.9 X10*3/uL (2.0-8.3); Promyelocytes Absolute 0.1 X10*3/uL; White Blood Count 7.9 X10*3/uL (4.8-10.8)
[2025-04-08 08:00] VITALS: BP 134/75; PULSE 87; RESP 18; TEMP 36.1; O2SAT 97
[2025-04-08 08:12] LABS: Glucose, Whole Blood 164 mg/dL (60-115)
[2025-04-08 08:20] LABS: Triglycerides 1503 mg/dL (<150)
[2025-04-08] MEDS: OLANZapine 10 MG VIAL 5 MG IM (08:35)
[2025-04-08] MEDS: oxyCODONE HCl Immed Release 5 MG TABLET PO (09:11)
--- NOTE | 2025-04-08 12:34 | PC.NURSE ---
Patient was complaining of back pain, went to get PRN medication. After returning patient sitting in chair, eyes closed, unlabored breathing, appeared to be sleeping.
--- NOTE | 2025-04-08 12:54 | MHC.CARE ---
Pt will be adult IPLOC. Section 12a in chart for safety.
--- NOTE | 2025-04-08 14:20 | PM.DS ---
DS: Providers Provider Date of Service: 04/08/25 Date of admission: 04/01/25 22:00 Date of discharge: 04/08/25 Primary care physician: Deena Rojo NP Consults: 04/01/25 12:27 ED CARE Team Crisis Consult Routine Comment: Reason for consultation: AUD, SI 04/02/25 09:01 Consult to Psychiatry [place]ine Consulting [place] [facility] [place] [facility] Reason for consultation: suicidal ideation Has provider been notified: No 04/04/25 09:33 Consult to Wound Care Routine Consulting Provider[place] [facility] Reason for consultation: wound 04/04/25 15:00 Consult to Psychiatry Routine Consulting Provider: [facility] Reason for consultation: severe anxiety , depression and SI 04/07/25 11:08 Addiction Medicine Provider Routine Consulting Provider: Addiction Covering Reason for consultation: AUD 04/07/25 13:54 Consult for Sitter Routine Reason for consultation: SI Inpt CARE Team Crisis Consult Routine Comment: Reason for consultation: Now endorsing SI; otherwise medically cleared DS: Diagnosis Discharge Diagnosis (1) Hypertriglyceridemia: Status: Acute DS: Summary Hospital Course Hospital Course: From admission HPI: Date of Service: 04/01/25 Attending physician on admission: Mehran Mejía Chief Complaint: Acute hypertriglyceremia, Acute Alchol Intox / withdrawal risk 64-year-old male with underlying history of anxiety and depression, who presented to the emergency room with suicidal ideations.? He also has a history of hypertension, hyperlipidemia, type 2 diabetes, alcohol abuse.? Reportedly the patient has started to have suicidal thoughts 3-4 days ago however did not have a plan.? He drinks hard liquor daily 5-6 nips last being in the morning prior to coming to the emergency room.? Reportedly has had recurrent falls, felt shaky and as if he was going to go into withdrawal.? The patient has not taken any of his medications for about a week.? Although initially he denied, he subsequently stated that he has epigastric discomfort 7/10, localized, nonradiating, sharp in nature coming in waves.? This was associated with some diarrhea but no melena or hematochezia. In the emergency room, his workup reveal a white count of 11.0, H and H of 14 and 39 respectively, sodium 130, potassium 3.9, chloride 97, carbon dioxide less than 5, BUN 17, creatinine 1.2, GFR more than 60.? Magnesium 1.4, SGOT 1323, ALT 293, alk-phos 153, triglycerides 5253, cholesterol 7 O2, HDL 24, TSH 5.31.? Urinalysis shows proteinuria, urine toxic screen was negative however alcohol level was 146.? Respiratory panel was negative.? Given his eminent signs of withdrawal the patient was started on phenobarbital, was given 2 L of IV fluid, Valium and magnesium replacement.? The patient's lipase was normal.? CT of the abdomen and pelvis shows no evidence of pancreatitis.? Other images done including chest x-ray, left shoulder x-ray showed no fracture.? Head CT shows no acute intracranial pathology with suspected nasal bone fracture.? The patient is transferred to the ICU for insulin infusion. Hospital course Pt was admitted to the hospital for hypertriglyceridemia that initially required admission to the ICU for insulin drip for 4 days. Patient's triglycerides slowly improved and eventually plateaued between around 1500, which is essentially patient's baseline. Has had similar previous ICU admissions requiring insulin drip and triglycerides have consistently been elevated >1000. Pt reports he has been drinking more heavily than normal which further increases his triglycerides. For alcohol use disorder, pt was treated with thiamine, folic acid, and Librium instead of phenobarb due to significant transaminitis. Patient's CIWA has been low and no longer has concerns for active withdrawal. Pt has been complaining of weakness and recent falls at home. CTA of abdomen/pelvis showed acute to subacute superior endplate compression fracture at L1; pt should follow up outpatient with PCP or orthopedics for management. Pt also initially complained of suicidal ideation which he then denied during most of his hospital stay. However, yesterday afternoon pt again endorsed SI and was seen and evaluated by care team who recommended inpatient psychiatric hospitalization for stabilization. Pt will be transferred to Psychiatric unit for continued psychiatric care. Additional details concerning hospital stay as indicated below. Hypertriglyceridemia Patient was treated with insulin drip while in the ICU, currently off, currently with statin, ezetimibe, fenofibrate Triglyceride level trending down; 5253 upon admission, now around 1500 which is flat x3 days. This appears his baseline Patient was admitted to [facility] few years ago, was treated with insulin drip for over a week for hypertriglyceridemia but couldn't get it below 1000, so was eventually stopped and discharged home Major depression with SI Initially presented to ED with vague SI and required 1:1 sitter; then cleared as he denied SI Yesterday initially denied SI during morning rounds, though again endorsed SI to nurse in the afternoon On as needed Zyprexa 5 mg IM, Librium prn Continue home Latuda, topiramate, escitalopam and trazadone 1:1 sitter Care team recommended transfer to inpatient psych Alcohol related liver disease AST and ALT trending down, from thousands to 200s, and downtrending Patient was on phenobarb for alcohol withdrawal stopped due to significant transaminitis; currently on as needed chlordiazepoxide On thiamine and folic acid supplements CT abdomen showing enlarged liver with cholestasis-outpatient monitoring and additional workup Will hold off on statins until LFT is less than 3 times the upper limit Pt interested in treatment programs for alcohol dependence Weakness, recent falls at home In the setting of AUD CT of abd/pelvis showing acute to subacute superior endplate compression fracture at L1 PT eval recommended STR Hypertension: Continue amlodipine 10mg. Hypomagnesemia, resolved Time Attestation Discharge Coordination Time (in mins): 36 Quality: Safe Use of Opioids Does Pt have an Active Cancer Diagnosis on the Problem List?: No Quality: Stroke Does the patient have a stroke diagnosis?: No Physical Exam Exam: Exam: General: AOx3, no acute distress Resp: CTA bilaterally CVS: S1, S2, RRR GI: +BS, NT, no distention Skin: Warm, dry Neuro: Cranial nerves II-XII grossly intact bilaterally. Motor grossly intact bilaterally. Bilateral lower leg weakness, L>R Extremities: No edema Psych: Flat affect Vital Signs: Vital Signs: Last Vital Signs Temp 96.9 F 04/08/25 08:00 Pulse 87 04/08/25 08:00 Resp 18 04/08/25 08:00 BP 134/75 04/08/25 08:00 Pulse Ox 97 04/08/25 08:00 O2 Del Method Room Air 04/08/25 08:00 O2 Flow Rate 2 04/03/25 06:00 FiO2 25 04/04/25 06:00 BMI result Body Mass Index 37.1 DS: Data Data Completed and Pending Completed studies during hospitalization [Text1]: Procedures Other Electroconvulsive Therapy (12/20/24) Labs on day of discharge: Laboratory Results - last 24 hr 04/07/25 04/07/25 04/08/25 16:00 19:44 05:19 WBC 7.9 RBC 4.08 L Hgb 13.0 L Hct 37.1 L MCV 90.9 MCH 31.9 MCHC 35.0 RDW 14.1 Plt Count 265 MPV 9.7 Immature Gran % (Auto) Cancelled Neut % (Auto) Cancelled Lymph % (Auto) Cancelled Grayson % (Auto) Cancelled Eos % (Auto) Cancelled Baso % (Auto) Cancelled Lymph # (Auto) Cancelled Grayson # (Auto) Cancelled Eos # (Auto) Cancelled Baso # (Auto) Cancelled Abs Immat Gran (auto) Cancelled Absolute Neuts (auto) Cancelled Absolute Nucleated RBC 0.090 H Nucleated RBC % (auto) 1.1 H Neutrophils % (Manual) 32 L Band Neutrophils % 5 Lymphocytes % (Manual) 40 Atypical Lymphs % (Man) 1 Monocytes % (Manual) 4 Eosinophils % (Manual) 1 Basophils % (Manual) 1 Metamyelocytes % 7 Myelocytes % 8 Promyelocytes % 1 Abs Neuts (Manual) 2.9 Lymphocytes # (Manual) 3.2 Atyp Lymphs # (Manual) 0.1 Monocytes # (Manual) 0.3 Eosinophils # (Manual) 0.1 Basophils # (Manual) 0.1 Metamyelocytes # 0.6 Myelocytes # 0.6 Promyelocytes # 0.1 Nucleated RBCs 3 H Platelet Estimate NORMAL Large Platelets PRESENT Plt Morphology Comment NOTED RBC Morphology NOTED Polychromasia 1+ (0-2) Tear Drop Cells 1+ (0-2) Sodium 138 Potassium 4.3 Chloride 107 Carbon Dioxide 23 Anion Gap 12 BUN 15 Creatinine 0.88 Estim Creat Clear Calc 103.7 Estimated GFR > 60 POC Glucose 164 H 157 H Random Glucose 119 H Calcium 8.9 Magnesium 1.7 Total Bilirubin 0.5 AST 104 H ALT 83 H Alkaline Phosphatase 95 Total Protein 6.7 Albumin 3.3 L Triglycerides 1503 H 04/08/25 07:23 WBC RBC Hgb Hct MCV MCH MCHC RDW Plt Count MPV Immature Gran % (Auto) Neut % (Auto) Lymph % (Auto) Grayson % (Auto) Eos % (Auto) Baso % (Auto) Lymph # (Auto) Grayson # (Auto) Eos # (Auto) Baso # (Auto) Abs Immat Gran (auto) Absolute Neuts (auto) Absolute Nucleated RBC Nucleated RBC % (auto) Neutrophils % (Manual) Band Neutrophils % Lymphocytes % (Manual) Atypical Lymphs % (Man) Monocytes % (Manual) Eosinophils % (Manual) Basophils % (Manual) Metamyelocytes % Myelocytes % Promyelocytes % Abs Neuts (Manual) Lymphocytes # (Manual) Atyp Lymphs # (Manual) Monocytes # (Manual) Eosinophils # (Manual) Basophils # (Manual) Metamyelocytes # Myelocytes # Promyelocytes # Nucleated RBCs Platelet Estimate Large Platelets Plt Morphology Comment RBC Morphology Polychromasia Tear Drop Cells Sodium Potassium Chloride Carbon Dioxide Anion Gap BUN Creatinine Estim Creat Clear Calc Estimated GFR POC Glucose 164 H Random Glucose Calcium Magnesium Total Bilirubin AST ALT Alkaline Phosphatase Total Protein Albumin Triglycerides Discharge Plan Discharge Anticipated Discharge Date/Time: 04/08/25 14:15 Patient Disposition: Xfer Psychiatric Hosp Referrals: Deena Rojo NP [Primary Care Provider, Internal Medicine] - 1 Week Discharge Medications: Continued ezetimibe 10 mg tablet 10 mg PO DAILY rosuvastatin 20 mg tablet 20 mg PO DAILY omega-3 acid ethyl esters 1 gram capsule 2 cap PO BID omeprazole 20 mg Capsule,Delayed Release(Dr/Ec) 20 mg PO BEDTIME 30 Days Qty: 30 0RF naltrexone 50 mg tablet 50 mg PO DAILY 30 Days Qty: 30 0RF escitalopram oxalate 20 mg tablet 20 mg PO BEDTIME 30 Days Qty: 30 0RF lurasidone [Latuda] 80 mg tablet 80 mg PO DAILY@1700 30 Days Qty: 30 0RF Rx Instructions: must administer with food (at least 350 calories) Centrum Silver Men [phone] mcg Tablet 1 tab PO DAILY amlodipine 10 mg tablet 10 mg PO DAILY topiramate 50 mg tablet 50 mg PO BEDTIME fenofibrate 160 mg tablet 160 mg PO DAILY trazodone 100 mg tablet 100 mg PO BEDTIME Discharge Orders: Discharge Order (Routine); Ordered 04/08/25 Ordered By: Ruth Mendoza Activity on Discharge: As tolerated Stand Alone Forms: Patient Portal Discharge page Print Language: Italian
--- NOTE | 2025-04-08 14:44 | MHC.CM.PN ---
IMM04/07/25 patient discharge today. Seen by care team. Patient qualifies for IPLOC.
[2025-04-08 15:39] VITALS: BP 133/68; PULSE 78; RESP 18; TEMP 35.8; O2SAT 97
== END 2025-04-08 15:57 | DRG 642 ==
LOC: HO.ED 21:52 → HO.EDOVER 22:56 → HO.ICU 22:58 → HO.S3 04-04 12:39
PROVIDERS: Emergency Medicine; Internal Medicine Critical Care Medicine; Physician Assistant Medical; Registered Nurse Emergency; Student in an Organized Health Care Education/Training Program; Admitting Provider Physician Assistant Medical; Emergency Provider Emergency Medicine; PCP Nurse Practitioner Family; Visit Provider Student in an Organized Health Care Education/Training Program
DX: E78.2 Mixed hyperlipidemia (principal); K83.1 Obstruction of bile duct; F10.239 Alcohol dependence with withdrawal, unspecified; R45.851 Suicidal ideations; E87.21 Acute metabolic acidosis; E87.1 Hypo-osmolality and hyponatremia; Z20.822 Contact with and (suspected) exposure to COVID-19; F10.229 Alcohol dependence with intoxication, unspecified; Y90.6 Blood alcohol level of 120-199 mg/100 ml; F32.9 Major depressive disorder, single episode, unspecified; I10 Essential (primary) hypertension; F41.9 Anxiety disorder, unspecified; K70.10 Alcoholic hepatitis without ascites; Z23 Encounter for immunization; E66.01 Morbid (severe) obesity due to excess calories; Z68.37 Body mass index [BMI] 37.0-37.9, adult; E86.1 Hypovolemia; Z76.5 Malingerer [conscious simulation]; E83.42 Hypomagnesemia; E83.51 Hypocalcemia; Z79.899 Other long term (current) drug therapy; Z91.199 Patient's noncompliance with other medical treatment and regimen due to unspecified reason
CPT/HCPCS: 36415; 70450; 71046; 73030; 74177; 80048; 80053; 80061; 80307; 81001; 82693; 82803; 82947; 83036; 83605; 83690; 83735; 84100; 84439; 84443; 84478; 84481; 84484; 85007; 85025; 85027; 85610; 86704; 86706; 86709; 86803; 87340; 87637; 93005; 97162; 97166; 99285; J0613; J0616; J1644; J1650; J1808; J1885; J2359; J2405; J2470; J2560; J3360; J3411; J3475; Q9967; S9485

== ENCOUNTER → 2025-04-01 12:27 | Outpatient (BNV) | payer MEDICARE, SELFPAY | PROVIDERS: Emergency Provider Emergency Medicine; PCP Nurse Practitioner Family; Visit Provider Internal Medicine Cardiovascular Disease | DX: R00.0 Tachycardia, unspecified (principal) | CPT/HCPCS: 93010 ==

== ENCOUNTER → 2025-04-01 12:27 | Outpatient (BNV) | payer MEDICARE, SELFPAY | PROVIDERS: Emergency Provider Emergency Medicine; PCP Nurse Practitioner Family; Visit Provider Radiology Diagnostic Radiology | DX: F10.90 Alcohol use, unspecified, uncomplicated (principal); R07.9 Chest pain, unspecified; S40.012A Contusion of left shoulder, initial encounter; Z04.3 Encounter for examination and observation following other accident | CPT/HCPCS: 70450; 71046; 73030; 74177 ==

== ENCOUNTER → 2025-04-01 22:00 | Outpatient (BNV) | payer MEDICARE, SELFPAY | PROVIDERS: Admitting Provider Physician Assistant Medical; Emergency Provider Emergency Medicine; PCP Nurse Practitioner Family; Visit Provider Student in an Organized Health Care Education/Training Program | DX: E78.1 Pure hyperglyceridemia (principal) | CPT/HCPCS: 99232; 99233; 99239 ==

== ENCOUNTER → 2025-04-01 22:00 | Outpatient (BNV) | payer MEDICARE, SELFPAY | PROVIDERS: Admitting Provider Physician Assistant Medical; Emergency Provider Emergency Medicine; PCP Nurse Practitioner Family; Visit Provider Psychiatry & Neurology Psychiatry | DX: F33.2 Major depressive disorder, recurrent severe without psychotic features (principal); R45.851 Suicidal ideations; F10.90 Alcohol use, unspecified, uncomplicated | CPT/HCPCS: 99222 ==

== ENCOUNTER → 2025-04-01 22:00 | Outpatient (BNV) | payer MEDICARE, SELFPAY | PROVIDERS: Admitting Provider Physician Assistant Medical; Emergency Provider Emergency Medicine; PCP Nurse Practitioner Family; Visit Provider Internal Medicine Critical Care Medicine | DX: F10.139 Alcohol abuse with withdrawal, unspecified (principal); E78.1 Pure hyperglyceridemia; F33.2 Major depressive disorder, recurrent severe without psychotic features; R45.851 Suicidal ideations | CPT/HCPCS: 99291 ==

== ENCOUNTER 2025-04-08 14:27 | Outpatient (BNV) | payer MEDICARE, SELFPAY | END 2025-05-08 14:50 | PROVIDERS: Admitting Provider Clinical Nurse Specialist Psychiatric/Mental Health, Adult; Visit Provider Radiology Diagnostic Radiology | DX: R41.0 Disorientation, unspecified (principal) | CPT/HCPCS: 70551 ==

== ENCOUNTER 2025-04-08 14:27 | Outpatient (BNV) | payer MEDICARE, SELFPAY | END 2025-04-16 15:46 | PROVIDERS: Admitting Provider Clinical Nurse Specialist Psychiatric/Mental Health, Adult; Visit Provider Internal Medicine Cardiovascular Disease | DX: Z13.6 Encounter for screening for cardiovascular disorders (principal) | CPT/HCPCS: 93010 ==

== ENCOUNTER 2025-04-08 14:27 | Outpatient (BNV) | payer MEDICARE, SELFPAY | END 2025-04-11 13:50 | PROVIDERS: Admitting Provider Clinical Nurse Specialist Psychiatric/Mental Health, Adult; Visit Provider Radiology Diagnostic Radiology | DX: Z04.3 Encounter for examination and observation following other accident (principal); M25.571 Pain in right ankle and joints of right foot; M79.671 Pain in right foot; M19.071 Primary osteoarthritis, right ankle and foot; Z96.661 Presence of right artificial ankle joint | CPT/HCPCS: 73610; 73630 ==

== ENCOUNTER 2025-04-08 14:27 | Outpatient (BNV) | payer MEDICARE, SELFPAY | END 2025-05-07 10:12 | PROVIDERS: Admitting Provider Clinical Nurse Specialist Psychiatric/Mental Health, Adult; Visit Provider Internal Medicine Cardiovascular Disease | DX: R94.31 Abnormal electrocardiogram [ECG] [EKG] (principal); Z13.6 Encounter for screening for cardiovascular disorders | CPT/HCPCS: 93010 ==

== ENCOUNTER 2025-04-08 14:27 | Outpatient (BNV) | payer MEDICARE, SELFPAY | END 2025-05-07 10:00 | PROVIDERS: Admitting Provider Clinical Nurse Specialist Psychiatric/Mental Health, Adult; Visit Provider Psychiatry & Neurology Neurology | DX: R56.9 Unspecified convulsions (principal) | CPT/HCPCS: 95816 ==

== ENCOUNTER 2025-04-08 14:27 | Outpatient (BNV) | payer MEDICARE, SELFPAY | END 2025-05-07 09:24 | PROVIDERS: Admitting Provider Clinical Nurse Specialist Psychiatric/Mental Health, Adult; Visit Provider Radiology Diagnostic Radiology | DX: R41.0 Disorientation, unspecified (principal); R29.6 Repeated falls; M16.0 Bilateral primary osteoarthritis of hip; Z04.3 Encounter for examination and observation following other accident; J10.00 Influenza due to other identified influenza virus with unspecified type of pneumonia | CPT/HCPCS: 70450; 71046; 73502; 73552; 73590; 74018 ==

== ENCOUNTER 2025-04-08 14:27 | Outpatient (BNV) | payer MEDICARE, SELFPAY | END 2025-04-21 08:18 | PROVIDERS: Admitting Provider Clinical Nurse Specialist Psychiatric/Mental Health, Adult; Visit Provider Internal Medicine | DX: Z13.6 Encounter for screening for cardiovascular disorders (principal) | CPT/HCPCS: 93010 ==

== ENCOUNTER 2025-04-08 14:27 | Inpatient (IN) | payer MEDICARE, SELFPAY ==
--- NOTE | ~2025-04-08 | CT_ITS ---
EXAMINATION: CT HEAD WITHOUT IV CONTRAST HISTORY: confusion, falls. TECHNIQUE: Unenhanced helical CT of the head was performed per standard departmental protocol. Coronal and sagittal reformats of the head were also evaluated. One or more of the following techniques was used for dose reduction: Automated exposure control, adjustment of the mA and/or kV according to patient size, use of iterative reconstruction technique. DLP: 933 mGy-cm COMPARISON: Previous head CT March 2025 FINDINGS: BRAIN: The brain parenchyma is unremarkable. There is normal virgen/white differentiation. The ventricular system is normal in size and configuration. There is no mass effect or midline shift. No intra- or extra-axial fluid collections are identified. SINUSES: The visualized paranasal sinuses are clear. The mastoid air cells and middle ear cavities are well pneumatized. ORBITS: The visualized orbits are unremarkable. BONES/SOFT TISSUES: The extracranial soft tissues are unremarkable. The calvarium is intact. There may be old nasal bone fractures. This is similar to prior exam. No suspicious lytic or sclerotic lesions. Sclerotic lesion in the right frontal bone probably osteoma unchanged. CT/CT head/brain wo IV con IMPRESSION: No acute intracranial abnormality. Electronically signed by: Emi Carrizales MD 05/07/2025 12:30 PM [facility]
--- NOTE | ~2025-04-08 | XR_ITS ---
EXAMINATION: XR ANKLE 3 OR MORE VIEWS RIGHT, XR FOOT 3 OR MORE VIEWS RIGHT HISTORY: Fall on 04/07. Pain, difficulty ambulating COMPARISON: There are no prior studies available for comparison. FINDINGS: Six views of the right foot and ankle are submitted. Osseous mineralization is normal. The patient is status post tibiotalar arthroplasty. Well-corticated osseous densities about the ankle may be the result of old trauma. There is no acute fracture or dislocation. There is degenerative change involving the 1st MTP joint and the talonavicular joint. The soft tissues are unremarkable. XR/XR foot RT min 3V IMPRESSION: Status post tibiotalar arthroplasty. Degenerative changes as described. Electronically signed by: Jony Olivas MD 04/11/2025 01:59 PM [facility]
--- NOTE | ~2025-04-08 | XR_ITS ---
EXAMINATION: XR ANKLE 3 OR MORE VIEWS RIGHT, XR FOOT 3 OR MORE VIEWS RIGHT HISTORY: Fall on 04/07. Pain, difficulty ambulating COMPARISON: There are no prior studies available for comparison. FINDINGS: Six views of the right foot and ankle are submitted. Osseous mineralization is normal. The patient is status post tibiotalar arthroplasty. Well-corticated osseous densities about the ankle may be the result of old trauma. There is no acute fracture or dislocation. There is degenerative change involving the 1st MTP joint and the talonavicular joint. The soft tissues are unremarkable. XR/XR ankle RT min 3V IMPRESSION: Status post tibiotalar arthroplasty. Degenerative changes as described. Electronically signed by: Jony Olivas MD 04/11/2025 01:59 PM [facility]
--- NOTE | ~2025-04-08 | XR_ITS ---
EXAMINATION: XR TIBIA FIBULA 2 VIEWS RIGHT HISTORY: s/p fall COMPARISON: Correlation is made with plain films of the right ankle dated 04/11/2025. FINDINGS: AP and lateral views of the right tibia and fibula are submitted. Osseous mineralization is normal. There is no fracture or dislocation. The patient is again noted to be status post tibiotalar arthroplasty. The soft tissues are unremarkable. XR/XR tibia fibula RT 2V IMPRESSION: No evidence of fracture of the right tibia or fibula. Electronically signed by: Jony Olivas MD 05/07/2025 01:19 PM EST
--- NOTE | ~2025-04-08 | XR_ITS ---
EXAMINATION: XR CHEST CLINICAL INFORMATION: influenza a, confusion, post ect COMPARISON: April 01, 2025 TECHNIQUE: PA and lateral views FINDINGS: Pulmonary reticular pattern. No consolidation, pleural fissure pneumothorax. Cardiomediastinal silhouette size is normal. Multilevel spondylosis. Degenerative changes, right shoulder. Metallic screw in the inferior aspect of the coracoid process right scapula, unchanged. XR/XR chest 2V IMPRESSION: No acute airspace disease. Stable chest. Electronically signed by: Maynor Song MD 05/07/2025 09:37 AM EST
--- NOTE | ~2025-04-08 | XR_ITS ---
CLINICAL HISTORY: cough, f u flu --- Additional Notes or Special Instructions: Pt coming down per RN--1750 CM 2 view chest x-ray Comparison: 05/07/2025 Findings: No consolidation or effusion. Heart size is normal. No acute fracture. IMPRESSION: 1. No acute findings. This document has been electronically signed by: Kayden Reddy MD on 05/12/2025 18:56:56
--- NOTE | ~2025-04-08 | XR_ITS ---
CLINICAL HISTORY: pre mri-mse changes-confusion 1 view abdomen Comparison: None Findings: Normal bowel gas pattern. Normal stool quantity. No abnormal calcifications. No pneumoperitoneum or pneumatosis. Bones unremarkable Impression: 1. Normal bowel gas pattern This document has been electronically signed by: Dwayne Doll MD on 05/07/2025 18:42:10
--- NOTE | ~2025-04-08 | XR_ITS ---
EXAMINATION: XR FEMUR, RIGHT CLINICAL INFORMATION: s/p fall COMPARISON: None available. TECHNIQUE: 4 views of the right femur were obtained. FINDINGS: No visible acute fracture, malalignment or suspicious bony lesion of the right femur. Hip joint articulation and joint space is preserved. Knee joint articulation is grossly maintained. No significant knee joint effusion is seen. No significant soft tissue abnormality. XR/XR femur RT 2V IMPRESSION: No radiographic evidence of acute femoral fracture or dislocation. Clinically correlate. Additional/follow-up imaging as clinically indicated. Electronically signed by: Victor Manuel Hickey MD 05/07/2025 01:20 PM [facility]
--- NOTE | ~2025-04-08 | MR_ITS ---
EXAMINATION: MR BRAIN WITHOUT CONTRAST CLINICAL INFORMATION: MSE changes, confusion, post ECT. COMPARISON: Correlated to CT dated May 07, 2025 and April 01, 2025. TECHNIQUE: MRI of the brain was obtained using routine sequences without contrast. FINDINGS: No restricted diffusion. No acute intracranial hemorrhage, mass effect, midline shift, hydrocephalus or herniation. Bilateral multifocal punctate subcortical white matter hyperintense T2 FLAIR signal involving centrum semiovale and zee radiata. Streeter-white matter differentiation is normal. Posterior cranial fossa contents demonstrated no acute hemorrhage or mass effect. Normal position of the cerebellar tonsils. Sellar/suprasellar region is normal. Flow-void signal within the main cerebral vessels is normal. Susceptibility signal right frontotemporal lobe. Mucosal thickening, ethmoid cells. Hyperintense T2 FLAIR signal in the left mastoid air cells. MR/MR head/brain wo con IMPRESSION: No acute brain abnormality. Nonspecific white matter T2 FLAIR signal. Statistically matter present small vessel occlusive disease and less likely demyelinating process. Global cerebral atrophy, bifrontal temporal lobes, mild. 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 Electronically signed by: Maynor Song MD 05/08/2025 03:35 PM EST
--- NOTE | ~2025-04-08 | XR_ITS ---
EXAMINATION: XR HIP, RIGHT CLINICAL INFORMATION: s/p fall COMPARISON: None available. TECHNIQUE: AP pelvis, AP and frog-leg lateral views of the right hip. FINDINGS: This is a calcific lesions in the left hemipelvis are consistent with phleboliths. No fracture is evident. There are mild degenerative changes in the hips with osteophyte involving the acetabulum. There is also an accessory ossification center (os acetabuli) along the anterior right acetabular roof. XR/XR hip RT w PEL1V IMPRESSION: No acute bony abnormality. Mild osteoarthritis, bilateral hips. Electronically signed by: Fredrick Weeks MD 05/07/2025 01:21 PM EST
[2025-04-08 16:10] VITALS: BP 136/80; PULSE 88; RESP 18; TEMP 2.7; TEMP 37; O2SAT 99
[2025-04-08 16:15] VITALS: BMI 37.3
--- NOTE | 2025-04-08 17:26 | PM.EVENT ---
Documented by User: Amberadolfo Shipley, YOSEPH 04/08/25 17:31 Event Note Date of Service: 04/08/25 Event Note: Pt medically cleared by hospitalist team who report he had been in ICU for a few days to monitor insulin drip. Transfer to medicine to detox-reported heavy alcohol use with very high triglyceride levels~1500, currently on multiple agents to address this. Pt tells team he was feeling +SI. CIWA is currently not scoring. Pt is depressed, flat. He has a compression fracture that team suggests out pt follow up. Pt was to attend rehab, however, this plan was changed when he indicated +SI. Medically team believes detox to be completed, back pain is managed and medically at baseline to continue treatment in psychiatry. Pt, when reviewed with him is in agreement he needs psychiatric treatment. He signed a conditional voluntary on the medical unit and will transfer to later today. Time Spent With Patient Time: Total time managing care of this patient today ____ minutes. Documented by User: Hemant May MD 04/08/25 17:51 Event Note Date of Service: 04/08/25
--- NOTE | 2025-04-08 17:57 | PC.ADMIT ---
Patient 64 year old , male, with history of diabetes, hypertension, compression fracture, and alcohol used disorder had been hospitalized in ICU for a few days to monitor insulin drip and markedly elevated triglyceride levels, after stabilization he was transferred to M3 (Medicine floor) for continue treatment , and detox for heavy alcohol use, currently on multiple medications. On evaluation, patient displays psychiatric instability, including severe depressive symptoms, emotional deregulation, impaired judgment, suicidal ideation with expressed intent and inability to guarantee personal safety. Additional symptoms include impaired concentration, perceive inability to cope, poor insight contributing to deterioration of his mental state. Given the active risk of self harm, the Care team was called for evaluation, they were determined high acute psychiatric risk, and decided to immediate psychiatric admission to today at 04:09 PM for stabilization, safety monitoring, and appropriate treatment. Patient verbalized understanding and agree to be admitted on a CV. On skin checked at the admission time, patient presented bruises: left upper shoulder and right anterior foot.
[2025-04-08 20:00] VITALS: BP 152/76; PULSE 82; RESP 18; TEMP 35.8; O2SAT 97
[2025-04-08] MEDS: Flu Vacc TS2025-26(6mo up)/PF 0.5 ML SYRINGE IM (21:22)
[2025-04-09 08:00] VITALS: BP 120/61; PULSE 83; TEMP 36.2; O2SAT 95
[2025-04-09 08:43] VITALS: BP 120/61
--- NOTE | 2025-04-09 09:22 | P.CONHOSP_ITS ---
History of Present Illness Data of Consult Service Date: 04/09/25 Primary Care Provider: Unknown Physician HPI Reason for consult: Medical consult 64-year-old male with past medical history of anxiety and depression, alcoholic liver disease, history of alcohol use with alcohol withdrawal, hypertension, hyperlipidemia, type 2 diabetes, hypertriglyceridemia, major depressive disorder initially presented to the emergency room with suicidal ideation. On presentation patient had a triglyceride level of 5253, sodium level of 130, magnesium level 1.4. SGOT 1323, ALT 293 and alk-phos 153. Patient alcohol level of 146. Patient was given phenobarbital, fluids, Valium and magnesium replacement. His lipase was normal. CT demonstrated no evidence of pancreatitis, chest x-ray and shoulder x-ray were both normal, his head CT with no acute intracranial pathology. Patient had a suspected nasal bone fracture. Patient was admitted to the ICU for insulin drip for treatment of hyper triglyceridemia. His triglycerides slowly improved and plateaued around 1500 which is his baseline. Patient has had episodes of hypertriglyceridemia in the past with consistently elevated levels of greater than a 1000. Alcohol with withdrawal patient was treated with thiamine, folic acid and Librium instead of the phenobarbital protocol initially due to significant transaminitis. Incidental finding with CTA showed acute to subacute superior endplate compression fracture at L1. He will need outpatient management for this. As patient recovered he continued to endorse suicide ideation and was evaluated by the care team who recommended inpatient psychiatric hospitalization. On exam patient is reporting pain in his lumbar paraspinal area. Several scabbed areas to left shoulder, bilateral elbows without evidence of infection. [facility] Medical History Fatigue Social History Household Members: Spouse Housing: House Do you presently have visiting nurse or other home services: No Alcohol intake: current Alcohol intake frequency: 3 or more drinks per day [place] type: hard liquor Comment: 1:1 Patient Tobacco Use Status: Never used Tobacco Currently Displaying Signs/Symptoms of Drug Intoxication Withdrawal: No Have you been hit, kicked, punched, or otherwise hurt by someone within the past year? If so, by whom?: No Do you feel safe in your current relationship?: Yes Is there a partner from a previous relationship who is making you feel unsafe now?: No Are you made to feel afraid or neglected: No Spiritual Healthcare Practices: Congregational Advance Directives: Yes Advance Directives Information Provided: No Advance Directives on File: Yes Advance Directives Date on File: 04/02/25 Do you have thoughts of harming others: None Do you have a plan to hurt others: No Plan Recently lost weight without trying: No Eating poorly because of decreased appetite: No Nutrition Risks: No Nutritional Risk Poor oral hygiene: No service: No Sexual orientation: Straight/Heterosexual Meds Allergies Allergy/AdvReac Type Severity Reaction Status Date / Time No Known Allergies Allergy Verified 04/01/25 12:28 Active Medications: Current Medications Acetaminophen (Acetaminophen 325 Mg Tablet) 650 mg PO Q6H PRN PRN Reason: Headache/Pain, Scale 1-10 Last Admin: 04/08/25 18:59 Dose: 650 mg Al Hydroxide/Mg Hydroxide (Magnesium Hydrox/Alum Hydrox 30 Ml Oral.Susp) 30 ml PO Q6H PRN PRN Reason: Heartburn/Nausea Amlodipine Besylate (Amlodipine Besylate 10 Mg Tablet) 10 mg PO DAILY [facility]; Protocol Last Admin: 04/09/25 08:43 Dose: 10 mg Atorvastatin Calcium (Atorvastatin Calcium 80 Mg Tablet) 80 mg PO DAILY [facility] Last Admin: 04/09/25 08:43 Dose: 80 mg Clonidine HCl (Clonidine Hcl 0.1 Mg Tablet) 0.1 mg PO TID PRN; Protocol PRN Reason: severe anxiety Last Admin: 04/09/25 00:07 Dose: 0.1 mg Ezetimibe (Ezetimibe 10 Mg Tablet) 10 mg PO DAILY [facility] Last Admin: 04/09/25 08:43 Dose: 10 mg Escitalopram Oxalate (Escitalopram Oxalate 20 Mg Tablet) 20 mg PO BEDTIME PAYAM Last Admin: 04/08/25 21:20 Dose: 20 mg Fenofibrate (Fenofibrate 160 Mg Tablet) 160 mg PO DAILY [facility] Last Admin: 04/09/25 08:43 Dose: 160 mg Hydroxyzine HCl (Hydroxyzine Hcl 50 Mg Tablet) 50 mg PO Q6H PRN PRN Reason: mild anxiety Last Admin: 04/09/25 00:07 Dose: 50 mg Lurasidone HCl (Lurasidone Hcl 80 Mg Tablet) 80 mg PO 1700 PAYAM Magnesium Hydroxide (Milk Of Magnesia 30 Ml Oral.Susp) 30 ml PO DAILY PRN PRN Reason: Constipation Multivitamins/Vitamin C (Multivitamin Tablet) 1 tab PO DAILY [facility] Last Admin: 04/09/25 08:43 Dose: 1 tab Naltrexone HCl (Naltrexone Hcl 50 Mg Tablet) 50 mg PO DAILY [facility] Last Admin: 04/09/25 08:43 Dose: 50 mg Nicotine Polacrilex (Nicotine Polacrilex 2 Mg Gum) 4 mg BUCCAL Q2H PRN PRN Reason: Nicotine Cravings Omeprazole (Omeprazole 20 Mg Capsule.Dr) 20 mg PO BEDTIME [facility] Last Admin: 04/08/25 21:20 Dose: 20 mg Topiramate (Topiramate 25 Mg Tablet) 50 mg PO BEDTIME [facility] Last Admin: 04/08/25 21:20 Dose: 50 mg Trazodone HCl (Trazodone Hcl 100 Mg Tablet) 100 mg PO BEDTIME [facility] Last Admin: 04/08/25 21:20 Dose: 100 mg Trazodone HCl (Trazodone Hcl 50 Mg Tablet) 50 mg PO BEDTIME PRN PRN Reason: Insomnia Last Admin: 04/09/25 00:07 Dose: 50 mg Home Medications ?Medication ?Instructions ?Recorded ?Confirmed ?Last Taken ?Type ezetimibe 10 mg tablet (Zetia) 10 mg PO DAILY 12/19/24 04/08/25 03/23/25 History omega-3 acid ethyl esters 1 gram 2 cap PO BID 12/19/24 04/08/25 03/23/25 History capsule rosuvastatin 20 mg tablet 20 mg PO DAILY 12/19/2403/2203/23/25 History amlodipine 10 mg tablet 10 mg PO DAILY 01/31/2503/2203/23/25 History fenofibrate 160 mg tablet 160 mg PO DAILY 01/31/2503/23/25 History ifusqtmi-gr-yqqba 300 mcg-K 60 1 tab PO DAILY 01/31/25 04/08/25 03/23/25 History mcg-lycop 600 mcg-lutein 300 mcg tablet (Centrum Silver Men) topiramate 50 mg tablet 50 mg PO BEDTIME 01/31/2503/23/25 History trazodone 100 mg tablet 100 mg PO BEDTIME insomnia 1 06/02/24 04/08/25 03/23/25 History Physical Exam Vital Signs and Narrative: Vital Signs: Last Vital Signs Temp 96.5 F L 04/08/25 20:00 Pulse 82 04/08/25 20:00 Resp 18 04/08/25 20:00 BP 120/61 04/09/25 08:43 Pulse Ox 97 04/08/25 20:00 O2 Del Method Room Air 04/08/25 20:00 BMI result Body Mass Index 37.3 Assessment and Plan (1) Elevated triglycerides with high cholesterol: Status: Acute Plan 64-year-old male past medical history as listed below presented to the emergency room with suicide ideation. Patient was admitted to the ICU for alcohol withdrawal as well as well as elevated triglyceride levels. He is now admitted to inpatient psych for stabilization. MDD with SI/anxiety/history of heavy alcohol use Treatment per psychiatric team Hypertriglyceridemia Patient was treated with insulin drip while in the ICU. He has had similar admissions for same. Most recently at [facility] with a similar presentation. Triglyceride level trending down; 5253 upon admission, most recent 1350. Continue statin, ezetimibe, fenofibrate Alcohol related liver disease AST and ALT trending down, from thousands to 200s, and downtrending. AST currently 104, down from 1294. ALT 83, down from 293. Continue thiamine and folic acid supplements, omeprazole daily CT abdomen showing enlarged liver with cholestasis-outpatient monitoring and additional workup with GI. On Statin therapy. Pt interested in treatment programs for alcohol dependence-Social Service following Weakness, recent falls at home In the setting of AUD CT of abd/pelvis showing acute to subacute superior endplate compression fracture at L1 PT eval recommended STR after DC. Robaxin TID and Lidoderm Hypertension: Continue amlodipine 10mg. Blood pressure is stable Type 2 diabetes Hemoglobin A1c 5.4 Continue diet and exercise recommendations. Thank you for allowing me to participate in the care of this patient. Will follow with you, please notify medical provider with any changes in condition or concerns.
--- NOTE | 2025-04-09 09:23 | HO.PSYADMNOT ---
HPI Date of Service: 04/09/25 Chief Complaint: recurrent major depression, alcohol use disorder Sources of Information: patient interviewed, chart reviewed and crisis/core team assessment reviewed HPI Subjective Notes: Booker Warning and Conditional Voluntary Healthcare Proxy: No Guardianship: No Narrative: 64-year-old male with medical history of hypertension, type 2 diabetes, hyperlipidemia, compression fracture of L1, and psychiatric history of major depressive disorder, anxiety, and suicidal ideation, presented to [facility] ED on 04/01/2025 for worsening depression, SI, and a fall. Imaging were unrevealing. He was transferred to the ICU for treatment of metabolic syndrome. He endorsed SI before his discharge from the medical unit and therefore was transferred to yesterday. On interview with this provider, patient states that the reason for his psychiatric admission is suicide ideation and severe depression. He reports severe depression on/off, mostly on for the past several years. He feels hopeless, helpless, and worthless. He lacks interest to do things and has low energy. His symptoms are usually well controlled while on medication. However, he relapsed on drinking alcohol 3 weeks ago and stopped taking his psychotropic medications. He was drinking 5 or more nips daily. Prior to his recent relapse, he was sober for 2 years. He admits that his drinking may have worsened his depressive symptoms. He states that he stopped taking his medications because I didn't care anymore. He currently experiencing severe anxiety and depression. Regarding question about suicide ideation, he states that he does not have a plan, but if I went to sleep, I don't care if don't wake up. He denies hypomania or kaveh episodes. He denies HI/AVH. He reports severe left-sided back pain which started after he fell the day before he presented to [facility] ED. CT abdomen/pelvis revealed acute to subacute superior endplate compression fracture at L1. His goal for this hospitalization is that I want to feel better about myself, and to get back on his medications. Patient seen a 10:20 on 04/09/2025 Past Psychiatric History: Outpatient psychiatrist- Dr. Desir No current tx IPLOC x2: at [facility] in 12/2024 and mention of an earlier admission to [facility] PHP x2: [facility] in 01/2025, remotely >10 yrs ago to [facility] x2: remote 12 years ago (reportedly impulsive in context of intoxication) History of past sobriety up to 4 years Denies h/o detox Previous medications: Zoloft, Paxil, Wellbutrin (most recent, was helpful until ineffective), Effexor (also felt to be helpful, eventually ineffective), Abilify, [place] (AE bad:), Seroquel, gabapentin, lorazepam, naltrexone, trazodone, topiramate ECT: series of 10 in 12/2024 (helpful) TMS: 11/2024 (not felt to be helpful) Medical Evaluation Reviewed: Yes [facility] Medical History Fatigue Family History: father with depression, denies any other issues or addiction or suicides in family Social History: family is supportive; patient used to run a construction business lives with of 45 years ( and reunited), has 3 adult children and 4 grandchildren; retired from [employer] in 2020 graduated HS in 1979 college x 2 yrs [employer] ([employer] ed and business) denies legal hx Substance History: Denies smoking cigarettes, alcohol, or drug use Trauma History: yes childhood Diagnostics Vital Signs (24Hr): Vital Signs - 24 hr 04/08/25 16:10 04/08/25 20:00 04/09/25 08:43 Temperature 37 F L 96.5 F L Pulse Rate 88 82 Respiratory Rate 18 18 Blood Pressure 136/80 152/76 H 120/61 Pulse Oximetry 99 97 Oxygen Delivery Method Room Air Room Air BMI result Body Mass Index 37.3 Meds/Allergies Meds Home Medications ?Medication ?Instructions ?Recorded ?Confirmed ?Type ezetimibe 10 mg tablet (Zetia) 10 mg PO DAILY 12/19/24 04/08/25 History omega-3 acid ethyl esters 1 gram 2 cap PO BID 12/19/24 04/08/25 History capsule rosuvastatin 20 mg tablet 20 mg PO DAILY 12/19/24 04/08/25 History amlodipine 10 mg tablet 10 mg PO DAILY 01/31/25 04/08/25 History fenofibrate 160 mg tablet 160 mg PO DAILY 01/31/25 04/08/25 History tdqaailo-ve-sfzkh 300 mcg-K 60 1 tab PO DAILY 01/31/25 04/08/25 History mcg-lycop 600 mcg-lutein 300 mcg tablet (Centrum Silver Men) topiramate 50 mg tablet 50 mg PO BEDTIME 01/31/25 04/08/25 History trazodone 100 mg tablet 100 mg PO BEDTIME insomnia 04/02/25 04/08/25 History Allergies Allergies Allergy/AdvReac Type Severity Reaction Status Date / Time No Known Allergies Allergy Verified 04/01/25 12:28 Mental Status Exam Mental Status Exam Narrative: Appearance: Casually dressed, adequate hygiene and grooming Behavior: Calm and cooperative throughout the interview. Eye contact is appropriate, and there are no signs of psychomotor agitation or retardation Speech: Normal volume and prosody Thought process: Logical and goal-directed Thought content: Future oriented no self-harming thoughts Mood: Depressed Affect: Mood-congruent SI: passive HI: Denies VH/AH: None Delusions: None Insight/judgment: Impaired insight and judgment Memory/cog: Alert, oriented x 4. grossly intact to conversational testing Assessment & Plan Assessment & Plan (1) Major depressive disorder, recurrent severe without psychotic features: Status: Acute Code(s): F33.2 - Major depressive disorder, recurrent severe without psychotic features (2) Anxiety: Status: Acute Code(s): F41.9 - Anxiety disorder, unspecified (3) Suicidal ideation: Status: Acute Code(s): R45.851 - Suicidal ideations (4) Alcohol use disorder: Status: Acute Code(s): F10.90 - Alcohol use, unspecified, uncomplicated (5) Low back pain: Status: Acute Code(s): M54.50 - Low back pain, unspecified Plan 64-year-old male with medical history of hypertension, type 2 diabetes, hyperlipidemia, compression fracture of L1, and psychiatric history of major depressive disorder, anxiety, and suicidal ideation, presented to [facility] ED on 04/01/2025 for worsening depression, SI, and a fall. Imaging were unrevealing. He was transferred to the ICU for treatment of metabolic syndrome. He endorsed SI before his discharge from the medical unit and therefore was transferred to yesterday. On interview with this provider, patient states that the reason for his psychiatric admission is suicide ideation and severe depression. He reports severe depression on/off, mostly on for the past several years. He feels hopeless, helpless, and worthless. He lacks interest to do things and has low energy. His symptoms are usually well controlled while on medication. However, he relapsed on drinking alcohol 3 weeks ago and stopped taking his psychotropic medications. He was drinking 5 or more nips daily. Prior to his recent relapse, he was sober for 2 years. He admits that his drinking may have worsened his depressive symptoms. He states that he stopped taking his medications because I didn't care anymore. He currently experiencing severe anxiety and depression. Regarding question about suicide ideation, he states that he does not have a plan, but if I went to sleep, I don't care if don't wake up. He denies hypomania or kaveh episodes. He denies HI/AVH. He reports severe left-sided back pain which started after he fell the day before he presented to [facility] ED. CT abdomen/pelvis revealed acute to subacute superior endplate compression fracture at L1. His goal for this hospitalization is that I want to feel better about myself, and to get back on his medications. Formulation/Clinical reasoning: Patient has chronic anxiety and depression symptoms which worsened in the past 3 weeks when he stopped taking his psychotropic medications and relapsed on alcohol. His symptoms are well controlled on medications. Will continue current treatment regimen and make adjustment as needed. If he fails to respond to treatment, ECT may be ideal since it was effective in the past. Referred to addiction medicine. Lidocaine patch ordered and PT referral made for back pain. Plan Admit to M5. CV 15 minutes check. Diagnostics as needed. Collateral contact. Continue remainder of regime. Encouraged full milieu. Discharge planning. Patient educated on: diagnosis, medication risk/benefits and therapeutic strategies Reason for continued inpatient stay Substantial Risk for: harm to self and rapid decompensation Statement Statement: I have reviewed the history and physical and performed a pertinent examination on my patient. No changes have occurred unless specified. If the History and Physical was not performed prior to admission, the Hospitalist's service will be consulted for completing the admission physical. Time Spent With Patient Time: Total time managing care of this patient today ____ minutes.
--- OUTSIDE RECORDS SUMMARY | 2025-04-09 13:21 | XMS_ITS | Clinical Summary ---
Author Organization [facility], Address [address] [place] [address] Phone Care Team Providers Care Records And Tape Recordings Engineer Name Role Phone Deena Rojo NP Primary Care Provider Allergies Active Allergy Reactions Criticality Noted Date Comments Bupropion 03/24/2021 Salvo 03/24/2021 Paroxetine 03/24/2021 Venlafaxine 03/24/2021 Medications ARIPiprazole [...] complete this [place] [id number] [facility] Care Teams Records And Tape Recordings Engineer Relationship Specialty Start Date End Date Deena Rojo NP [address] [place] [address] PCP - General Nurse Practitioner 03/24/21
--- NOTE | 2025-04-09 18:24 | MHC.RECOVRN ---
Addiction consult received for pt with alcohol use.? TW met with pt with intention to discuss substance use and recovery support/options. On approach pt was laying in bed in the dark but not asleep. He presented as flat and depressed but did agree to meet with TW. He denies current withdrawal symptoms and none observed.? Pt reports consuming 5 nips of vodka through the day, every day. He reports continued depression, anxiety and SI as contributing factors to his continued use.? Pt reports attending AA meetings and having an AA sponsor with whom he is in contact with. He also reports at least 3-4 ATS and CSS admission in the past with some short term sobriety following discharge.? Pt is currently prescribed Naltrexone 50mg QD but states it is not helpful at reducing his alcohol intake. He is? interested in exploring other LIS options which will be discussed with the Addiction Medicine Provider. He is unsure about attending a program or securing a recovery collector at this time.? Pt was counseled on specific harm-reduction strategies including setting a personal limit of no more than 1-2 drinks per occasion, alternating alcohol with water, pacing intake, and eating food prior to and during drinking. ACS team available as needed for ongoing support and resources.
[2025-04-09 20:12] VITALS: BP 128/68; PULSE 78; RESP 18; TEMP 37.3; O2SAT 98
[2025-04-10 08:00] VITALS: BP 133/72; PULSE 80; RESP 16; TEMP 36.9; O2SAT 94
[2025-04-10 08:54] VITALS: BP 133/72
[2025-04-10 08:55] LABS: Cholesterol 253 mg/dL (<200); HDL Cholesterol 27 mg/dL (>40); Magnesium 1.7 mg/dL (1.6-2.6); Triglycerides 1009 mg/dL (<150)
[2025-04-10] MEDS: Lidocaine 4 % Patch ADH..PATCH 0.5 PATCH TRANSDERMA (08:56)
[2025-04-10 09:13] LABS: Free T4 (Free Thyroxine) 0.83 ng/dL (0.71-1.85); Thyroid Stimulating Hormone 4.62 uIU/mL (0.32-4.0)
--- NOTE | 2025-04-10 09:15 | P.PNPSI_ITS ---
Subjective Subjective Date of Service: 04/10/25 Reason For Visit: recurrent major depression, alcohol use disorder Subjective Notes: Conditional Voluntary Healthcare Proxy: No Guardianship: No Medical Problems Affecting Mental Status: No Interim History: Patient found in his room, lying in his bed. He describes his mood as depressed. He states that his sleep is adequate. He has not been going to groups but plans to do so today. He reports severe anxiety and depression. He denies SI/HI/AVH. He reports intermittent left-sided low back pain. He declined physical therapy as today, but they plan to re-attempt today. Medication Compliance: Yes Side effects from medications: No Attending Groups: No Review of Systems Acute medical concerns: Yes Left-sided low back pain Mental Status Exam Mental Status Exam Narrative: Appearance: Casually dressed in hospital gown, adequate hygiene and grooming Behavior: Calm and cooperative throughout the interview. Eye contact is appropriate, and there are no signs of psychomotor agitation or retardation Speech: Normal volume and prosody Thought process: Logical and goal-directed Thought content: Future oriented no self-harming thoughts Mood: Depressed Affect: Mood-congruent SI: Denies HI: Denies VH/AH: None Delusions: None Insight/judgment: Impaired insight and judgment Memory/cog: Alert, oriented x 4. grossly intact to conversational testing Diagnostics Vital Signs (24Hr): Vital Signs - 24 hr 04/09/25 20:12 04/10/25 08:54 Temperature 99.1 F Pulse Rate 78 Respiratory Rate 18 Blood Pressure 128/68 133/72 Pulse Oximetry 98 Oxygen Delivery Method Room Air BMI result Body Mass Index 37.3 Labs Labs: Laboratory Results - last 48 hr 04/10/25 07:56 Estimat Average Glucose 111 Hemoglobin A1c % 5.5 Magnesium 1.7 Triglycerides 1009 H Cholesterol 253 H LDL Cholesterol, Calc TNP HDL Cholesterol 27 L TSH 4.62 H Free T4 0.83 Medications Medications Current Medications Acetaminophen (Acetaminophen 325 Mg Tablet) 650 mg PO Q6H PRN PRN Reason: Headache/Pain, Scale 1-10 Last Admin: 04/08/25 18:59 Dose: 650 mg Al Hydroxide/Mg Hydroxide (Magnesium Hydrox/Alum Hydrox 30 Ml Oral.Susp) 30 ml PO Q6H PRN PRN Reason: Heartburn/Nausea Amlodipine Besylate (Amlodipine Besylate 10 Mg Tablet) 10 mg PO DAILY [facility]; Protocol Last Admin: 04/10/25 08:54 Dose: 10 mg Atorvastatin Calcium (Atorvastatin Calcium 80 Mg Tablet) 80 mg PO DAILY [facility] Last Admin: 04/10/25 08:53 Dose: 80 mg Clonidine HCl (Clonidine Hcl 0.1 Mg Tablet) 0.1 mg PO TID PRN; Protocol PRN Reason: severe anxiety Last Admin: 04/10/25 08:56 Dose: 0.1 mg Ezetimibe (Ezetimibe 10 Mg Tablet) 10 mg PO DAILY [facility] Last Admin: 04/10/25 08:53 Dose: 10 mg Escitalopram Oxalate (Escitalopram Oxalate 20 Mg Tablet) 20 mg PO BEDTIME [facility] Last Admin: 04/09/25 21:59 Dose: 20 mg Fenofibrate (Fenofibrate 160 Mg Tablet) 160 mg PO DAILY [facility] Last Admin: 04/10/25 08:53 Dose: 160 mg Folic Acid (Folic Acid 1 Mg Tablet) 1 mg PO DAILY [facility] Last Admin: 04/10/25 08:52 Dose: 1 mg Hydroxyzine HCl (Hydroxyzine Hcl 50 Mg Tablet) 50 mg PO Q6H PRN PRN Reason: mild anxiety Last Admin: 04/10/25 08:56 Dose: 50 mg Lidocaine (Lidocaine 4 % Patch Adh..Patch) 0.5 patch TRANSDERMA DAILY [facility]; Protocol Last Admin: 04/10/25 08:56 Dose: 0.5 patch Lurasidone HCl (Lurasidone Hcl 80 Mg Tablet) 80 mg PO 1700 [facility] Last Admin: 04/09/25 17:14 Dose: 80 mg Magnesium Hydroxide (Milk Of Magnesia 30 Ml Oral.Susp) 30 ml PO DAILY PRN PRN Reason: Constipation Methocarbamol (Methocarbamol 750 Mg Tablet) 750 mg PO TID [facility] Stop: 04/14/25 14:59 Last Admin: 04/10/25 08:53 Dose: 750 mg Multivitamins/Vitamin C (Multivitamin Tablet) 1 tab PO DAILY [facility] Last Admin: 04/10/25 08:52 Dose: 1 tab Naltrexone HCl (Naltrexone Hcl 50 Mg Tablet) 50 mg PO DAILY [facility] Last Admin: 04/10/25 08:53 Dose: 50 mg Nicotine Polacrilex (Nicotine Polacrilex 2 Mg Gum) 4 mg BUCCAL Q2H PRN PRN Reason: Nicotine Cravings Omeprazole (Omeprazole 20 Mg Capsule.Dr) 20 mg PO BEDTIME [facility] Last Admin: 04/09/25 21:59 Dose: 20 mg Thiamine HCl (Thiamine Hcl 100 Mg Tablet) 100 mg PO DAILY [facility] Last Admin: 04/10/25 08:54 Dose: 100 mg Topiramate (Topiramate 25 Mg Tablet) 50 mg PO BEDTIME [facility] Last Admin: 04/09/25 21:59 Dose: 50 mg Trazodone HCl (Trazodone Hcl 100 Mg Tablet) 100 mg PO BEDTIME [facility] Last Admin: 04/09/25 21:59 Dose: 100 mg Trazodone HCl (Trazodone Hcl 50 Mg Tablet) 50 mg PO BEDTIME PRN PRN Reason: Insomnia Last Admin: 04/09/25 00:07 Dose: 50 mg Allergies Allergies Allergy/AdvReac Type Severity Reaction Status Date / Time No Known Allergies Allergy Verified 04/01/25 12:28 Assessment & Plan Assessment & Plan (1) Major depressive disorder, recurrent severe without psychotic features: Status: Acute Code(s): F33.2 - Major depressive disorder, recurrent severe without psychotic features (2) Anxiety: Status: Acute Code(s): F41.9 - Anxiety disorder, unspecified (3) Suicidal ideation: Status: Acute Code(s): R45.851 - Suicidal ideations (4) Alcohol use disorder: Status: Acute Code(s): F10.90 - Alcohol use, unspecified, uncomplicated (5) Low back pain: Status: Acute Code(s): M54.50 - Low back pain, unspecified Plan 64-year-old male with medical history of hypertension, type 2 diabetes, hyperlipidemia, compression fracture of L1, and psychiatric history of major depressive disorder, anxiety, and suicidal ideation, presented to [facility] on 04/01/2025 for worsening depression, SI, and a fall. Imaging were unrevealing. He was transferred to the ICU for treatment of metabolic syndrome. He endorsed SI before his discharge from the medical unit and therefore was transferred to yesterday. On interview with this provider, patient states that the reason for his psychiatric admission is suicide ideation and severe depression. He reports severe depression on/off, mostly on for the past several years. He feels hopeless, helpless, and worthless. He lacks interest to do things and has low energy. His symptoms are usually well controlled while on medication. However, he relapsed on drinking alcohol 3 weeks ago and stopped taking his psychotropic medications. He was drinking 5 or more nips daily. Prior to his recent relapse, he was sober for 2 years. He admits that his drinking may have worsened his depressive symptoms. He states that he stopped taking his medications because I didn't care anymore. He currently experiencing severe anxiety and depression. Regarding question about suicide ideation, he states that he does not have a plan, but if I went to sleep, I don't care if don't wake up. He denies hypomania or kaveh episodes. He denies HI/AVH. He reports severe left-sided low back pain which started after he fell the day before he presented to [facility]. CT abdomen/pelvis revealed acute to subacute superior endplate compression fracture at L1. His goal for this hospitalization is that I want to feel better about myself, and to get back on his medications. Formulation/Clinical reasoning: Patient has chronic anxiety and depression symptoms which worsened in the past 3 weeks when he stopped taking his psychotropic medications and relapsed on alcohol. His symptoms are well controlled on medications. Will continue current treatment regimen and make adjustment as needed. If he fails to respond to treatment, ECT may be ideal since it was effective in the past. Referred to addiction medicine. Lidocaine patch ordered and PT referral made for back pain. 04/10: Patient continues to be severely anxious and depressed. He also continues to experience intermittent left-sided low back pain. No SI/HI/AVH. Continue current treatment regimen. Encourage groups and to engage in physical therapy. Patient may receive inpatient ECT if he does not improve. Verbalized understanding and agreed with the plan. Plan Admit to M5. CV 15 minutes check. Diagnostics as needed. Collateral contact. Continue remainder of regime. Encouraged full milieu. Discharge planning. Patient educated on: therapeutic strategies Reason for continued inpatient stay Substantial Risk for: rapid decompensation Time Spent With Patient Time: Total time managing care of this patient today ____ minutes.
[2025-04-10 09:25] LABS: Folate 14.7 ng/mL (> or = 4.0); Vitamin B12 504 pg/mL (200-900)
[2025-04-10 20:00] VITALS: BP 110/70; PULSE 96; RESP 18; TEMP 36.6; O2SAT 95
[2025-04-10 20:30] VITALS: BP 110/70
[2025-04-11 06:43] VITALS: BP 142/77
[2025-04-11 09:46] VITALS: BP 142/77; PULSE 96; RESP 14; TEMP 36.6; O2SAT 95
--- NOTE | 2025-04-11 10:29 | HO.PSYCHPN ---
Subjective Subjective Date of Service: 04/11/25 Reason For Visit: recurrent major depression, alcohol use disorder Subjective Notes: Conditional Voluntary Healthcare Proxy: No Guardianship: No Medical Problems Affecting Mental Status: No Interim History: Remains with significant depression. Asks about Antabuse. By hx, vivitrol has been effective. Discussed risks of Antabuse. No hx of Campral trials. In bed, minimal milieu activities. Describes right foot and ankle pain post fall when intoxicated last week. Will complete diagnostics. Discussed efficacy of ECT. Believes if the ECT course was continued in pt that he would have a better chance in recovery as ECT did assist in mgt of depression. Will place consult with providers. Medication Compliance: Yes Side effects from medications: No Attending Groups: No Review of Systems Right foot/ankle pain-will get diagnostics. Medical Review of Systems: unchanged Review of Systems Review of Systems right foot and ankle pain Mental Status Exam Mental Status Exam Patient Appearance: Fatigued and Disheveled Patient Orientation: Person, Place, Time and Situation Level of Consciousness: Sedated and Alert Patient Behavior: Talkative, Cooperative, Passive, Fatigued, Good Eye Contact and Crying Mood Description: Depressed and Sad Affect Description: Flat Patient Cognition Impaired: No Ability to Follow Directions: Good Speech Pattern: Impoverished, Spontaneous Speech and Delayed Memory Description: Episodic Impaired Hallucinations: None Delusions: Not Present Thought Process: Rumination Thought Content: positive for Circumstantial, positive for Perseveration and positive for Suicidal Ideation Depressive Symptoms: Thoughts of /Suicide Judgement: Poor Diagnostics Vital Signs (24Hr): Vital Signs - 24 hr 04/10/25 20:00 04/10/25 20:30 04/11/25 06:43 Temperature 98 F Pulse Rate 96 Respiratory Rate 18 Blood Pressure 110/70 110/70 142/77 H Pulse Oximetry 95 Oxygen Delivery Method Room Air 04/11/25 09:46 Temperature 97.8 F Pulse Rate 96 Respiratory Rate 14 Blood Pressure 142/77 H Pulse Oximetry 95 Oxygen Delivery Method Room Air BMI result Body Mass Index 37.3 Labs Labs: Laboratory Results - last 48 hr 04/10/25 07:56 Estimat Average Glucose 111 Hemoglobin A1c % 5.5 Magnesium 1.7 Triglycerides 1009 H Cholesterol 253 H LDL Cholesterol, Calc TNP HDL Cholesterol 27 L Vitamin B12 504 Folate 14.7 TSH 4.62 H Free T4 0.83 Medications Medications Current Medications Acetaminophen (Acetaminophen 325 Mg Tablet) 650 mg PO Q6H PRN PRN Reason: Headache/Pain, Scale 1-10 Last Admin: 04/08/25 18:59 Dose: 650 mg Al Hydroxide/Mg Hydroxide (Magnesium Hydrox/Alum Hydrox 30 Ml Oral.Susp) 30 ml PO Q6H PRN PRN Reason: Heartburn/Nausea Amlodipine Besylate (Amlodipine Besylate 10 Mg Tablet) 10 mg PO DAILY [facility]; Protocol Last Admin: 04/11/25 09:48 Dose: 10 mg Atorvastatin Calcium (Atorvastatin Calcium 80 Mg Tablet) 80 mg PO DAILY [facility] Last Admin: 04/11/25 09:47 Dose: 80 mg Clonidine HCl (Clonidine Hcl 0.1 Mg Tablet) 0.1 mg PO TID PRN; Protocol PRN Reason: severe anxiety Last Admin: 04/11/25 06:43 Dose: 0.1 mg Ezetimibe (Ezetimibe 10 Mg Tablet) 10 mg PO DAILY [facility] Last Admin: 04/11/25 09:47 Dose: 10 mg Escitalopram Oxalate (Escitalopram Oxalate 20 Mg Tablet) 20 mg PO BEDTIME [facility] Last Admin: 04/10/25 20:29 Dose: 20 mg Fenofibrate (Fenofibrate 160 Mg Tablet) 160 mg PO DAILY [facility] Last Admin: 04/11/25 09:48 Dose: 160 mg Folic Acid (Folic Acid 1 Mg Tablet) 1 mg PO DAILY [facility] Last Admin: 04/11/25 09:48 Dose: 1 mg Hydroxyzine HCl (Hydroxyzine Hcl 50 Mg Tablet) 50 mg PO Q6H PRN PRN Reason: mild anxiety Last Admin: 04/11/25 06:43 Dose: 50 mg Lidocaine (Lidocaine 4 % Patch Adh..Patch) 0.5 patch TRANSDERMA DAILY [facility]; Protocol Last Admin: 04/10/25 08:56 Dose: 0.5 patch Lurasidone HCl (Lurasidone Hcl 80 Mg Tablet) 80 mg PO 1700 [facility] Last Admin: 04/10/25 17:38 Dose: 80 mg Magnesium Hydroxide (Milk Of Magnesia 30 Ml Oral.Susp) 30 ml PO DAILY PRN PRN Reason: Constipation Methocarbamol (Methocarbamol 750 Mg Tablet) 750 mg PO TID [facility] Stop: 04/14/25 14:59 Last Admin: 04/11/25 09:48 Dose: 750 mg Multivitamins/Vitamin C (Multivitamin Tablet) 1 tab PO DAILY [facility] Last Admin: 04/11/25 09:47 Dose: 1 tab Naltrexone HCl (Naltrexone Hcl 50 Mg Tablet) 50 mg PO DAILY [facility] Last Admin: 04/11/25 09:48 Dose: 50 mg Nicotine Polacrilex (Nicotine Polacrilex 2 Mg Gum) 4 mg BUCCAL Q2H PRN PRN Reason: Nicotine Cravings Omeprazole (Omeprazole 20 Mg Capsule.Dr) 20 mg PO BEDTIME [facility] Last Admin: 04/10/25 20:29 Dose: 20 mg Thiamine HCl (Thiamine Hcl 100 Mg Tablet) 100 mg PO DAILY [facility] Last Admin: 04/11/25 09:47 Dose: 100 mg Topiramate (Topiramate 25 Mg Tablet) 50 mg PO BEDTIME [facility] Last Admin: 04/10/25 20:30 Dose: 50 mg Trazodone HCl (Trazodone Hcl 100 Mg Tablet) 100 mg PO BEDTIME [facility] Last Admin: 04/10/25 20:30 Dose: 100 mg Trazodone HCl (Trazodone Hcl 50 Mg Tablet) 50 mg PO BEDTIME PRN PRN Reason: Insomnia Last Admin: 04/10/25 20:30 Dose: 50 mg Allergies Allergies Allergy/AdvReac Type Severity Reaction Status Date / Time No Known Allergies Allergy Verified 04/01/25 12:28 Assessment & Plan Assessment & Plan (1) Major depressive disorder, recurrent severe without psychotic features: Status: Acute Code(s): F33.2 - Major depressive disorder, recurrent severe without psychotic features (2) Anxiety: Status: Acute Code(s): F41.9 - Anxiety disorder, unspecified (3) Suicidal ideation: Status: Acute Code(s): R45.851 - Suicidal ideations (4) Alcohol use disorder: Status: Acute Code(s): F10.90 - Alcohol use, unspecified, uncomplicated (5) Low back pain: Status: Acute Code(s): M54.50 - Low back pain, unspecified Plan 64-year-old male with medical history of hypertension, type 2 diabetes, hyperlipidemia, compression fracture of L1, and psychiatric history of major depressive disorder, anxiety, and suicidal ideation, presented to [facility] on 04/01/2025 for worsening depression, SI, and a fall. Imaging were unrevealing. He was transferred to the ICU for treatment of metabolic syndrome. He endorsed SI before his discharge from the medical unit and therefore was transferred to yesterday. On interview with this provider, patient states that the reason for his psychiatric admission is suicide ideation and severe depression. He reports severe depression on/off, mostly on for the past several years. He feels hopeless, helpless, and worthless. He lacks interest to do things and has low energy. His symptoms are usually well controlled while on medication. However, he relapsed on drinking alcohol 3 weeks ago and stopped taking his psychotropic medications. He was drinking 5 or more nips daily. Prior to his recent relapse, he was sober for 2 years. He admits that his drinking may have worsened his depressive symptoms. He states that he stopped taking his medications because I didn't care anymore. He currently experiencing severe anxiety and depression. Regarding question about suicide ideation, he states that he does not have a plan, but if I went to sleep, I don't care if don't wake up. He denies hypomania or kaveh episodes. He denies HI/AVH. He reports severe left-sided low back pain which started after he fell the day before he presented to [facility]. CT abdomen/pelvis revealed acute to subacute superior endplate compression fracture at L1. His goal for this hospitalization is that I want to feel better about myself, and to get back on his medications. Formulation/Clinical reasoning: Patient has chronic anxiety and depression symptoms which worsened in the past 3 weeks when he stopped taking his psychotropic medications and relapsed on alcohol. His symptoms are well controlled on medications. Will continue current treatment regimen and make adjustment as needed. If he fails to respond to treatment, ECT may be ideal since it was effective in the past. Referred to addiction medicine. Lidocaine patch ordered and PT referral made for back pain. 04/10: Patient continues to be severely anxious and depressed. He also continues to experience intermittent left-sided low back pain. No SI/HI/AVH. Continue current treatment regimen. Encourage groups and to engage in physical therapy. Patient may receive inpatient ECT if he does not improve. Verbalized understanding and agreed with the plan. 04/11: Continue tx ECT consult Encourage milieu Right foot/ankle xrays Plan Admit to . CV 15 minutes check. Diagnostics as needed. Collateral contact. Continue remainder of regime. Encouraged full milieu. Discharge planning. Patient educated on: medication risk/benefits, ECT and therapeutic strategies Reason for continued inpatient stay Substantial Risk for: rapid decompensation Time Spent With Patient Time: Total time managing care of this patient today ____ minutes.
[2025-04-11 12:36] VITALS: BP 125/70
[2025-04-11] MEDS: Lidocaine 4 % Patch ADH..PATCH 0.5 PATCH TRANSDERMA (12:38)
[2025-04-11 20:00] VITALS: BP 102/54; PULSE 77; RESP 18; TEMP 36.6; O2SAT 95
[2025-04-11 20:41] VITALS: BP 110/72
[2025-04-11 20:57] VITALS: BP 110/72
[2025-04-12 06:48] VITALS: BP 140/79
[2025-04-12 08:25] VITALS: BP 98/54; PULSE 75; RESP 18; TEMP 36.9; O2SAT 97
[2025-04-12 08:40] VITALS: BP 98/54
--- NOTE | 2025-04-12 12:20 | P.PNPSI_ITS ---
Subjective Subjective Date of Service: 04/12/25 Reason For Visit: recurrent major depression, alcohol use disorder Interim History: Met with patient; discussed with team; reviewed chart Patient says that his mood is better but he remains very anxious. Discussed options and patient agrees to trying Seroquel p.r.n. after reviewing risks/side effects of antipsychotics. Mental Status Exam Mental Status Exam Narrative: Pt is alert and oriented; behavior is isolative, staying in room, in bed all day; superficial but cooperative and friendly on approach; patient is not in distress; dressed in hospital, unkempt; mood is described as okay and affect withdrawn; eye contact appropriate; Speech is a little slowed soft and a little slow; psychomotor retardation present; thought process is organized and goal directed; Thought content is on tx but not much disclosed; otherwise pertinent to relevant topics and without any delusional content, paranoid ideations or grandiosity; denies any SI/HI. Denies AVH and there is no evidence of perceptual disturbance. Patients insight and judgment appear intact. Diagnostics Vital Signs (24Hr): Vital Signs - 24 hr 04/11/25 12:36 04/11/25 20:00 04/11/25 20:41 Temperature 97.9 F Pulse Rate 77 Respiratory Rate 18 Blood Pressure 125/70 102/54 L 110/72 Pulse Oximetry 95 Oxygen Delivery Method Room Air 04/11/25 20:57 04/12/25 06:48 04/12/25 08:25 Temperature 98.4 F Pulse Rate 75 Respiratory Rate 18 Blood Pressure 110/72 140/79 H 98/54 L Pulse Oximetry 97 Oxygen Delivery Method Room Air 04/12/25 08:40 Temperature Pulse Rate Respiratory Rate Blood Pressure 98/54 L Pulse Oximetry Oxygen Delivery Method BMI result Body Mass Index 37.3 Imaging Radiology Impressions: ITS Impressions Ankle X-Ray 04/11/25 13:50 IMPRESSION: Status post tibiotalar arthroplasty. Degenerative changes as described. Electronically signed by: Jony Olivas MD 04/11/2025 01:59 PM EST RP Foot X-Ray 04/11/25 13:51 IMPRESSION: Status post tibiotalar arthroplasty. Degenerative changes as described. Electronically signed by: Jony Olivas MD 04/11/2025 01:59 PM EST RP Medications Medications Current Medications Acetaminophen (Acetaminophen 325 Mg Tablet) 650 mg PO Q6H PRN PRN Reason: Headache/Pain, Scale 1-10 Last Admin: 04/11/25 20:40 Dose: 650 mg Al Hydroxide/Mg Hydroxide (Magnesium Hydrox/Alum Hydrox 30 Ml Oral.Susp) 30 ml PO Q6H PRN PRN Reason: Heartburn/Nausea Amlodipine Besylate (Amlodipine Besylate 10 Mg Tablet) 10 mg PO DAILY [facility]; Protocol Last Admin: 04/12/25 08:40 Dose: 10 mg Atorvastatin Calcium (Atorvastatin Calcium 80 Mg Tablet) 80 mg PO DAILY [facility] Last Admin: 04/12/25 08:41 Dose: 80 mg Clonidine HCl (Clonidine Hcl 0.1 Mg Tablet) 0.1 mg PO TID PRN; Protocol PRN Reason: severe anxiety Last Admin: 04/12/25 06:48 Dose: 0.1 mg Ezetimibe (Ezetimibe 10 Mg Tablet) 10 mg PO DAILY [facility] Last Admin: 04/12/25 08:41 Dose: 10 mg Escitalopram Oxalate (Escitalopram Oxalate 20 Mg Tablet) 20 mg PO BEDTIME [facility] Last Admin: 04/11/25 20:37 Dose: 20 mg Fenofibrate (Fenofibrate 160 Mg Tablet) 160 mg PO DAILY [facility] Last Admin: 04/12/25 08:41 Dose: 160 mg Folic Acid (Folic Acid 1 Mg Tablet) 1 mg PO DAILY [facility] Last Admin: 04/12/25 08:40 Dose: 1 mg Hydroxyzine HCl (Hydroxyzine Hcl 50 Mg Tablet) 50 mg PO Q6H PRN PRN Reason: mild anxiety Last Admin: 04/12/25 06:49 Dose: 50 mg Lidocaine (Lidocaine 4 % Patch Adh..Patch) 0.5 patch TRANSDERMA DAILY [facility]; Protocol Last Admin: 04/12/25 08:45 Dose: Not Given Lurasidone HCl (Lurasidone Hcl 80 Mg Tablet) 80 mg PO 1700 [facility] Last Admin: 04/11/25 18:00 Dose: 80 mg Magnesium Hydroxide (Milk Of Magnesia 30 Ml Oral.Susp) 30 ml PO DAILY PRN PRN Reason: Constipation Methocarbamol (Methocarbamol 750 Mg Tablet) 750 mg PO TID [facility] Stop: 04/14/25 14:59 Last Admin: 04/12/25 08:41 Dose: 750 mg Multivitamins/Vitamin C (Multivitamin Tablet) 1 tab PO DAILY [facility] Last Admin: 04/12/25 08:40 Dose: 1 tab Naltrexone HCl (Naltrexone Hcl 50 Mg Tablet) 50 mg PO DAILY [facility] Last Admin: 04/12/25 08:41 Dose: 50 mg Nicotine Polacrilex (Nicotine Polacrilex 2 Mg Gum) 4 mg BUCCAL Q2H PRN PRN Reason: Nicotine Cravings Omeprazole (Omeprazole 20 Mg Capsule.Dr) 20 mg PO BEDTIME [facility] Last Admin: 04/11/25 20:37 Dose: 20 mg Thiamine HCl (Thiamine Hcl 100 Mg Tablet) 100 mg PO DAILY [facility] Last Admin: 04/12/25 08:41 Dose: 100 mg Topiramate (Topiramate 25 Mg Tablet) 50 mg PO BEDTIME [facility] Last Admin: 04/11/25 20:37 Dose: 50 mg Trazodone HCl (Trazodone Hcl 100 Mg Tablet) 100 mg PO BEDTIME [facility] Last Admin: 04/11/25 20:37 Dose: 100 mg Trazodone HCl (Trazodone Hcl 50 Mg Tablet) 50 mg PO BEDTIME PRN PRN Reason: Insomnia Last Admin: 04/10/25 20:30 Dose: 50 mg Allergies Allergies Allergy/AdvReac Type Severity Reaction Status Date / Time No Known Allergies Allergy Verified 04/01/25 12:28 Assessment & Plan Assessment & Plan (1) Major depressive disorder, recurrent severe without psychotic features: Status: Acute Code(s): F33.2 - Major depressive disorder, recurrent severe without psychotic features (2) Anxiety: Status: Acute Code(s): F41.9 - Anxiety disorder, unspecified (3) Suicidal ideation: Status: Acute Code(s): R45.851 - Suicidal ideations (4) Alcohol use disorder: Status: Acute Code(s): F10.90 - Alcohol use, unspecified, uncomplicated (5) Low back pain: Status: Acute Code(s): M54.50 - Low back pain, unspecified Plan 64-year-old male with medical history of hypertension, type 2 diabetes, hyperlipidemia, compression fracture of L1, and psychiatric history of major depressive disorder, anxiety, and suicidal ideation, presented to [facility] ED on 04/01/2025 for worsening depression, SI, and a fall. Imaging were unrevealing. He was transferred to the ICU for treatment of metabolic syndrome. He endorsed SI before his discharge from the medical unit and therefore was transferred to yesterday. On interview with this provider, patient states that the reason for his psychiatric admission is suicide ideation and severe depression. He reports severe depression on/off, mostly on for the past several years. He feels hopeless, helpless, and worthless. He lacks interest to do things and has low energy. His symptoms are usually well controlled while on medication. However, he relapsed on drinking alcohol 3 weeks ago and stopped taking his psychotropic medications. He was drinking 5 or more nips daily. Prior to his recent relapse, he was sober for 2 years. He admits that his drinking may have worsened his depressive symptoms. He states that he stopped taking his medications because I didn't care anymore. He currently experiencing severe anxiety and depression. Regarding question about suicide ideation, he states that he does not have a plan, but if I went to sleep, I don't care if don't wake up. He denies hypomania or kaveh episodes. He denies HI/AVH. He reports severe left-sided low back pain which started after he fell the day before he presented to [facility] ED. CT abdomen/pelvis revealed acute to subacute superior endplate compression fracture at L1. His goal for this hospitalization is that I want to feel better about myself, and to get back on his medications. Formulation/Clinical reasoning: Patient has chronic anxiety and depression symptoms which worsened in the past 3 weeks when he stopped taking his psychotropic medications and relapsed on alcohol. His symptoms are well controlled on medications. Will continue current treatment regimen and make adjustment as needed. If he fails to respond to treatment, ECT may be ideal since it was effective in the past. Referred to addiction medicine. Lidocaine patch ordered and PT referral made for back pain. 04/10: Patient continues to be severely anxious and depressed. He also contin ues to experience intermittent left-sided low back pain. No SI/HI/AVH. Continue current treatment regimen. Encourage groups and to engage in physical therapy. Patient may receive inpatient ECT if he does not improve. Verbalized understanding and agreed with the plan. 04/11: Continue tx ECT consult Encourage milieu Right foot/ankle xrays 04/12 Patient says that his mood is better but he remains very anxious. Discussed options and patient agrees to trying Seroquel p.r.n. after reviewing risks/side effects of antipsychotics. Plan Admit to M5. CV 15 minutes check. -Add Seroquel 25 mg p.r.n. for anxiety Diagnostics as needed. Collateral contact. Continue remainder of regime. Encouraged full milieu. Discharge planning. Patient educated on: diagnosis and medication risk/benefits Informed Consent: understands Reason for continued inpatient stay Substantial Risk for: rapid decompensation Time Spent With Patient Time: Total time managing care of this patient today ____ minutes.
[2025-04-12 19:14] VITALS: BP 111/68
[2025-04-12 20:00] VITALS: BP 116/54; PULSE 81; RESP 18; TEMP 36.9; O2SAT 95
[2025-04-12 23:59] VITALS: BP 142/68
[2025-04-13 04:01] VITALS: BP 138/74
[2025-04-13 08:00] VITALS: BP 111/55; PULSE 71; RESP 18; TEMP 36.2; O2SAT 96
[2025-04-13 11:03] VITALS: BP 98/64
[2025-04-13 18:39] VITALS: BP 102/61
[2025-04-13 20:00] VITALS: BP 99/55; PULSE 73; RESP 18; TEMP 36.8; O2SAT 98
[2025-04-14 08:00] VITALS: BP 81/44; PULSE 65; TEMP 36.9; O2SAT 98
[2025-04-14 09:35] VITALS: BP 101/58
--- NOTE | 2025-04-14 10:02 | HO.PSYCHPN ---
Subjective Subjective Date of Service: 04/14/25 Reason For Visit: recurrent major depression, alcohol use disorder Subjective Notes: Conditional Voluntary Healthcare Proxy: No Guardianship: No Medical Problems Affecting Mental Status: No Interim History: The depression is somewhat less. Anxiety is high Reports anergy as well I will do what I need to to feel better. Reviewed in team with Dr. May and Dr. Jacob. Dr. May met with pt and ECT will begin on 04/21. Denies SI,HI,AH,VH, SIBS Reports an increase of sleep and intact appetite. Pt asks to return to a regular diet as he reports poor choices on diabetic regime. Also asks that he not receive a safety tray. Intermittent group attendance Over the weekend Clonidine ordered prn along with Seroquel prn and Lidocaine Patch for pain. No new medical/diagnostic results. Will trial Provigil prior to ECT Medication Compliance: Yes Side effects from medications: No Attending Groups: Intermittent Review of Systems Acute medical concerns: No Medical Review of Systems: unchanged Review of Systems Review of Systems Back pain Mental Status Exam Mental Status Exam Patient Appearance: Fatigued Patient Orientation: Person, Place, Time and Situation Level of Consciousness: Sedated and Alert Patient Behavior: Talkative and Cooperative Mood Description: Depressed Affect Description: Flat Patient Cognition Impaired: No Ability to Follow Directions: Good Speech Pattern: Spontaneous Speech Memory Description: Intact Hallucinations: None Delusions: Not Present Thought Process: Rumination Thought Content: positive for [place], positive for Circumstantial and positive for Perseveration Depressive Symptoms: Sleeping More Than Usual, Loss of Energy and Difficulty Concentrating Judgement: Poor Diagnostics Vital Signs (24Hr): Vital Signs - 24 hr 04/13/25 11:03 04/13/25 18:39 04/13/25 20:00 Temperature 98.2 F Pulse Rate 73 Respiratory Rate 18 Blood Pressure 98/64 102/61 99/55 L Pulse Oximetry 98 Oxygen Delivery Method Room Air 04/14/25 08:00 04/14/25 09:35 Temperature 98.5 F Pulse Rate 65 Respiratory Rate Blood Pressure 81/44 L 101/58 L Pulse Oximetry 98 Oxygen Delivery Method Room Air BMI result Body Mass Index 37.3 Imaging Radiology Impressions: ITS Impressions Ankle X-Ray 04/11/25 13:50 IMPRESSION: Status post tibiotalar arthroplasty. Degenerative changes as described. Electronically signed by: Jony Olivas MD 04/11/2025 01:59 PM EST RP Foot X-Ray 04/11/25 13:51 IMPRESSION: Status post tibiotalar arthroplasty. Degenerative changes as described. Electronically signed by: Jony Olivas MD 04/11/2025 01:59 PM EST RP Medications Medications Current Medications Acetaminophen (Acetaminophen 325 Mg Tablet) 650 mg PO Q6H PRN PRN Reason: Headache/Pain, Scale 1-10 Last Admin: 04/11/25 20:40 Dose: 650 mg Al Hydroxide/Mg Hydroxide (Magnesium Hydrox/Alum Hydrox 30 Ml Oral.Susp) 30 ml PO Q6H PRN PRN Reason: Heartburn/Nausea Amlodipine Besylate (Amlodipine Besylate 10 Mg Tablet) 10 mg PO DAILY [facility]; Protocol Last Admin: 04/14/25 09:39 Dose: 10 mg Atorvastatin Calcium (Atorvastatin Calcium 80 Mg Tablet) 80 mg PO DAILY [facility] Last Admin: 04/14/25 08:49 Dose: 80 mg Clonidine HCl (Clonidine Hcl 0.1 Mg Tablet) 0.1 mg PO Q4H PRN; Protocol PRN Reason: severe anxiety Last Admin: 04/14/25 06:26 Dose: 0.1 mg Ezetimibe (Ezetimibe 10 Mg Tablet) 10 mg PO DAILY [facility] Last Admin: 04/14/25 08:48 Dose: 10 mg Escitalopram Oxalate (Escitalopram Oxalate 20 Mg Tablet) 20 mg PO BEDTIME [facility] Last Admin: 04/13/25 22:13 Dose: 20 mg Fenofibrate (Fenofibrate 160 Mg Tablet) 160 mg PO DAILY [facility] Last Admin: 04/14/25 08:48 Dose: 160 mg Folic Acid (Folic Acid 1 Mg Tablet) 1 mg PO DAILY [facility] Last Admin: 04/14/25 08:49 Dose: 1 mg Hydroxyzine HCl (Hydroxyzine Hcl 50 Mg Tablet) 50 mg PO Q6H PRN PRN Reason: mild anxiety Last Admin: 04/14/25 06:25 Dose: 50 mg Lidocaine (Lidocaine 4 % Patch Adh..Patch) 0.5 patch TRANSDERMA DAILY PRN; Protocol PRN Reason: back pain Lurasidone HCl (Lurasidone Hcl 80 Mg Tablet) 80 mg PO 1700 [facility] Last Admin: 04/13/25 16:32 Dose: 80 mg Magnesium Hydroxide (Milk Of Magnesia 30 Ml Oral.Susp) 30 ml PO DAILY PRN PRN Reason: Constipation Methocarbamol (Methocarbamol 750 Mg Tablet) 750 mg PO TID [facility] Stop: 04/14/25 14:59 Last Admin: 04/14/25 08:48 Dose: 750 mg Multivitamins/Vitamin C (Multivitamin Tablet) 1 tab PO DAILY [facility] Last Admin: 04/14/25 08:48 Dose: 1 tab Naltrexone HCl (Naltrexone Hcl 50 Mg Tablet) 50 mg PO DAILY [facility] Last Admin: 04/14/25 08:49 Dose: 50 mg Nicotine Polacrilex (Nicotine Polacrilex 2 Mg Gum) 4 mg BUCCAL Q2H PRN PRN Reason: Nicotine Cravings Omeprazole (Omeprazole 20 Mg Capsule.Dr) 20 mg PO BEDTIME [facility] Last Admin: 04/13/25 22:14 Dose: 20 mg Quetiapine Fumarate (Quetiapine Fumarate 25 Mg Tablet) 25 mg PO TID PRN PRN Reason: breakthrough anxiety Last Admin: 04/14/25 09:39 Dose: 25 mg Thiamine HCl (Thiamine Hcl 100 Mg Tablet) 100 mg PO DAILY [facility] Last Admin: 04/14/25 08:49 Dose: 100 mg Topiramate (Topiramate 25 Mg Tablet) 50 mg PO BEDTIME [facility] Last Admin: 04/13/25 22:14 Dose: 50 mg Trazodone HCl (Trazodone Hcl 100 Mg Tablet) 100 mg PO BEDTIME [facility] Last Admin: 04/13/25 22:15 Dose: 100 mg Trazodone HCl (Trazodone Hcl 50 Mg Tablet) 50 mg PO BEDTIME PRN PRN Reason: Insomnia Last Admin: 04/10/25 20:30 Dose: 50 mg Allergies Allergies Allergy/AdvReac Type Severity Reaction Status Date / Time No Known Allergies Allergy Verified 04/01/25 12:28 Assessment & Plan Assessment & Plan (1) Major depressive disorder, recurrent severe without psychotic features: Status: Acute Code(s): F33.2 - Major depressive disorder, recurrent severe without psychotic features (2) Anxiety: Status: Acute Code(s): F41.9 - Anxiety disorder, unspecified (3) Suicidal ideation: Status: Acute Code(s): R45.851 - Suicidal ideations (4) Alcohol use disorder: Status: Acute Code(s): F10.90 - Alcohol use, unspecified, uncomplicated (5) Low back pain: Status: Acute Code(s): M54.50 - Low back pain, unspecified Plan 64-year-old male with medical history of hypertension, type 2 diabetes, hyperlipidemia, compression fracture of L1, and psychiatric history of major depressive disorder, anxiety, and suicidal ideation, presented to [facility] ED on 04/01/2025 for worsening depression, SI, and a fall. Imaging were unrevealing. He was transferred to the ICU for treatment of metabolic syndrome. He endorsed SI before his discharge from the medical unit and therefore was transferred to yesterday. On interview with this provider, patient states that the reason for his psychiatric admission is suicide ideation and severe depression. He reports severe depression on/off, mostly on for the past several years. He feels hopeless, helpless, and worthless. He lacks interest to do things and has low energy. His symptoms are usually well controlled while on medication. However, he relapsed on drinking alcohol 3 weeks ago and stopped taking his psychotropic medications. He was drinking 5 or more nips daily. Prior to his recent relapse, he was sober for 2 years. He admits that his drinking may have worsened his depressive symptoms. He states that he stopped taking his medications because I didn't care anymore. He currently experiencing severe anxiety and depression. Regarding question about suicide ideation, he states that he does not have a plan, but if I went to sleep, I don't care if don't wake up. He denies hypomania or kaveh episodes. He denies HI/AVH. He reports severe left-sided low back pain which started after he fell the day before he presented to [facility] ED. CT abdomen/pelvis revealed acute to subacute superior endplate compression fracture at L1. His goal for this hospitalization is that I want to feel better about myself, and to get back on his medications. Formulation/Clinical reasoning: Patient has chronic anxiety and depression symptoms which worsened in the past 3 weeks when he stopped taking his psychotropic medications and relapsed on alcohol. His symptoms are well controlled on medications. Will continue current treatment regimen and make adjustment as needed. If he fails to respond to treatment, ECT may be ideal since it was effective in the past. Referred to addiction medicine. Lidocaine patch ordered and PT referral made for back pain. 04/10: Patient continues to be severely anxious and depressed. He also continues to experience intermittent left-sided low back pain. No SI/HI/AVH. Continue current treatment regimen. Encourage groups and to engage in physical therapy. Patient may receive inpatient ECT if he does not improve. Verbalized understanding and agreed with the plan. 04/11: Continue tx ECT consult Encourage milieu Right foot/ankle xrays 04/12 Patient says that his mood is better but he remains very anxious. Discussed options and patient agrees to trying Seroquel p.r.n. after reviewing risks/side effects of antipsychotics. 04/14: The depression is somewhat less. Anxiety is high Reports anergy as well I will do what I need to to feel better. Reviewed in team with Dr. May and Dr. Jacob. Dr. May met with pt and ECT will begin on 04/21. Denies SI,HI,AH,VH, SIBS Reports an increase of sleep and intact appetite. Pt asks to return to a regular diet as he reports poor choices on diabetic regime. Also asks that he not receive a safety tray. Intermittent group attendance Over the weekend Clonidine ordered prn along with Seroquel prn and Lidocaine Patch for pain. No new medical/diagnostic results. Plan: Provigil trial. Plan Admit to M5. CV 15 minutes check. -Add Seroquel 25 mg p.r.n. for anxiety Diagnostics as needed. Collateral contact. Continue remainder of regime. Encouraged full milieu. Discharge planning. Reason for continued inpatient stay Substantial Risk for: rapid decompensation Time Spent With Patient Time: Total time managing care of this patient today ____ minutes.
--- NOTE | 2025-04-14 10:59 | P.PNPSI_ITS ---
Subjective Subjective Date of Service: 04/13/25 Reason For Visit: recurrent major depression, alcohol use disorder Interim History: late entry note for pt seen on 04/13/25; discussed with team pt remains isolative, lying in bed, disheveled; says mood is better but remains anxious; says addition of prn seroquel helped. [employer] discussed behavioral activation and pt agreed saying he will make more effort to get out of bed, attend groups, adls'.. Mental Status Exam Mental Status Exam Narrative: Pt is alert and oriented; behavior is isolative, staying in room, in bed all d ay; superficial but cooperative and friendly on approach; patient is not in distress; dressed in hospital, disheveled; mood is described as okay and affect withdrawn; eye contact appropriate; Speech is a little slowed soft and a little slow; psychomotor retardation present; thought process is organized and goal directed; Thought content is on tx but not much disclosed; otherwise pertinent to relevant topics and without any delusional content, paranoid ideations or grandiosity; denies any SI/HI. Denies AVH and there is no evidence of perceptual disturbance. Patients insight and judgment appear intact. Diagnostics Vital Signs (24Hr): Vital Signs - 24 hr 04/13/25 11:03 04/13/25 18:39 04/13/25 20:00 Temperature 98.2 F Pulse Rate 73 Respiratory Rate 18 Blood Pressure 98/64 102/61 99/55 L Pulse Oximetry 98 Oxygen Delivery Method Room Air 04/14/25 08:00 04/14/25 09:35 Temperature 98.5 F Pulse Rate 65 Respiratory Rate Blood Pressure 81/44 L 101/58 L Pulse Oximetry 98 Oxygen Delivery Method Room Air BMI result Body Mass Index 37.3 Imaging Radiology Impressions: ITS Impressions Ankle X-Ray 04/11/25 13:50 IMPRESSION: Status post tibiotalar arthroplasty. Degenerative changes as described. Electronically signed by: Jony Olivas MD 04/11/2025 01:59 PM EST RP Foot X-Ray 04/11/25 13:51 IMPRESSION: Status post tibiotalar arthroplasty. Degenerative changes as described. Electronically signed by: Jony Olivas MD 04/11/2025 01:59 PM EST RP Medications Medications Current Medications Acetaminophen (Acetaminophen 325 Mg Tablet) 650 mg PO Q6H PRN PRN Reason: Headache/Pain, Scale 1-10 Last Admin: 04/11/25 20:40 Dose: 650 mg Al Hydroxide/Mg Hydroxide (Magnesium Hydrox/Alum Hydrox 30 Ml Oral.Susp) 30 ml PO Q6H PRN PRN Reason: Heartburn/Nausea Amlodipine Besylate (Amlodipine Besylate 10 Mg Tablet) 10 mg PO DAILY [facility]; Protocol Last Admin: 04/14/25 09:39 Dose: 10 mg Atorvastatin Calcium (Atorvastatin Calcium 80 Mg Tablet) 80 mg PO DAILY [facility] Last Admin: 04/14/25 08:49 Dose: 80 mg Clonidine HCl (Clonidine Hcl 0.1 Mg Tablet) 0.1 mg PO Q4H PRN; Protocol PRN Reason: severe anxiety Last Admin: 04/14/25 06:26 Dose: 0.1 mg Ezetimibe (Ezetimibe 10 Mg Tablet) 10 mg PO DAILY [facility] Last Admin: 04/14/25 08:48 Dose: 10 mg Escitalopram Oxalate (Escitalopram Oxalate 20 Mg Tablet) 20 mg PO BEDTIME [facility] Last Admin: 04/13/25 22:13 Dose: 20 mg Fenofibrate (Fenofibrate 160 Mg Tablet) 160 mg PO DAILY [facility] Last Admin: 04/14/25 08:48 Dose: 160 mg Folic Acid (Folic Acid 1 Mg Tablet) 1 mg PO DAILY [facility] Last Admin: 04/14/25 08:49 Dose: 1 mg Hydroxyzine HCl (Hydroxyzine Hcl 50 Mg Tablet) 50 mg PO Q6H PRN PRN Reason: mild anxiety Last Admin: 04/14/25 06:25 Dose: 50 mg Lidocaine (Lidocaine 4 % Patch Adh..Patch) 0.5 patch TRANSDERMA DAILY PRN; Protocol PRN Reason: back pain Lurasidone HCl (Lurasidone Hcl 80 Mg Tablet) 80 mg PO 1700 [facility] Last Admin: 04/13/25 16:32 Dose: 80 mg Magnesium Hydroxide (Milk Of Magnesia 30 Ml Oral.Susp) 30 ml PO DAILY PRN PRN Reason: Constipation Methocarbamol (Methocarbamol 750 Mg Tablet) 750 mg PO TID [facility] Stop: 04/14/25 14:59 Last Admin: 04/14/25 08:48 Dose: 750 mg Multivitamins/Vitamin C (Multivitamin Tablet) 1 tab PO DAILY [facility] Last Admin: 04/14/25 08:48 Dose: 1 tab Naltrexone HCl (Naltrexone Hcl 50 Mg Tablet) 50 mg PO DAILY [facility] Last Admin: 04/14/25 08:49 Dose: 50 mg Nicotine Polacrilex (Nicotine Polacrilex 2 Mg Gum) 4 mg BUCCAL Q2H PRN PRN Reason: Nicotine Cravings Omeprazole (Omeprazole 20 Mg Capsule.Dr) 20 mg PO BEDTIME [facility] Last Admin: 04/13/25 22:14 Dose: 20 mg Quetiapine Fumarate (Quetiapine Fumarate 25 Mg Tablet) 25 mg PO TID PRN PRN Reason: breakthrough anxiety Last Admin: 04/14/25 09:39 Dose: 25 mg Thiamine HCl (Thiamine Hcl 100 Mg Tablet) 100 mg PO DAILY [facility] Last Admin: 04/14/25 08:49 Dose: 100 mg Topiramate (Topiramate 25 Mg Tablet) 50 mg PO BEDTIME [facility] Last Admin: 04/13/25 22:14 Dose: 50 mg Trazodone HCl (Trazodone Hcl 100 Mg Tablet) 100 mg PO BEDTIME [facility] Last Admin: 04/13/25 22:15 Dose: 100 mg Trazodone HCl (Trazodone Hcl 50 Mg Tablet) 50 mg PO BEDTIME PRN PRN Reason: Insomnia Last Admin: 04/10/25 20:30 Dose: 50 mg Allergies Allergies Allergy/AdvReac Type Severity Reaction Status Date / Time No Known Allergies Allergy Verified 04/01/25 12:28 Assessment & Plan Assessment & Plan (1) Major depressive disorder, recurrent severe without psychotic features: Status: Acute Code(s): F33.2 - Major depressive disorder, recurrent severe without psychotic features (2) Anxiety: Status: Acute Code(s): F41.9 - Anxiety disorder, unspecified (3) Suicidal ideation: Status: Acute Code(s): R45.851 - Suicidal ideations (4) Alcohol use disorder: Status: Acute Code(s): F10.90 - Alcohol use, unspecified, uncomplicated (5) Low back pain: Status: Acute Code(s): M54.50 - Low back pain, unspecified Plan 64-year-old male with medical history of hypertension, type 2 diabetes, hyperlipidemia, compression fracture of L1, and psychiatric history of major depressive disorder, anxiety, and suicidal ideation, presented to [facility] on 04/01/2025 for worsening depression, SI, and a fall. Imaging were unrevealing. He was transferred to the ICU for treatment of metabolic syndrome. He endorsed SI before his discharge from the medical unit and therefore was transferred to yesterday. On interview with this provider, patient states that the reason for his psychiatric admission is suicide ideation and severe depression. He reports severe depression on/off, mostly on for the past several years. He feels hopeless, helpless, and worthless. He lacks interest to do things and has low energy. His symptoms are usually well controlled while on medication. However, he relapsed on drinking alcohol 3 weeks ago and stopped taking his psychotropic medications. He was drinking 5 or more nips daily. Prior to his recent relapse, he was sober for 2 years. He admits that his drinking may have worsened his depressive symptoms. He states that he stopped taking his medic ations because I didn't care anymore. He currently experiencing severe anxiety and depression. Regarding question about suicide ideation, he states that he does not have a plan, but if I went to sleep, I don't care if don't wake up. He denies hypomania or kaveh episodes. He denies HI/AVH. He reports severe left-sided low back pain which started after he fell the day before he presented to [facility]. CT abdomen/pelvis revealed acute to subacute superior endplate compression fracture at L1. His goal for this hospitalization is that I want to feel better about myself, and to get back on his medications. Formulation/Clinical reasoning: Patient has chronic anxiety and depression symptoms which worsened in the past 3 weeks when he stopped taking his psychotropic medications and relapsed on alcohol. His symptoms are well controlled on medications. Will continue current treatment regimen and make adjustment as needed. If he fails to respond to treatment, ECT may be ideal since it was effective in the past. Referred to addiction medicine. Lidocaine patch ordered and PT referral made for back pain. 04/10: Patient continues to be severely anxious and depressed. He also continues to experience intermittent left-sided low back pain. No SI/HI/AVH. Continue current treatment regimen. Encourage groups and to engage in physical therapy. Patient may receive inpatient ECT if he does not improve. Verbalized understanding and agreed with the plan. 04/11: Continue tx ECT consult Encourage milieu Right foot/ankle xrays 04/12 Patient says that his mood is better but he remains very anxious. Discussed options and patient agrees to trying Seroquel p.r.n. after reviewing risks/side effects of antipsychotics. 04/13 pt remains isolative, lying in bed, disheveled; says mood is better but remains anxious; says addition of prn seroquel helped. [employer] discussed behavioral activation and pt agreed saying he will make more effort to get out of bed, attend groups, adls'.. Plan Admit to M5. CV 15 minutes check. -Add Seroquel 25 mg p.r.n. for anxiety Diagnostics as needed. Collateral contact. Continue remainder of regime. Encouraged full milieu. Discharge planning. Patient educated on: diagnosis, medication risk/benefits and therapeutic strategies Informed Consent: understands Reason for continued inpatient stay Substantial Risk for: rapid decompensation Time Spent With Patient Time: Total time managing care of this patient today ____ minutes.
[2025-04-14 20:09] VITALS: BP 113/56; PULSE 75; RESP 18; TEMP 36.4; O2SAT 96
--- NOTE | 2025-04-14 22:33 | P.CNPS_ITS ---
History of Present Illness Date of Service: 04/14/25 Chief Complaint: recurrent major depression, alcohol use disorder Reason for Consult: ect evaluation in context of depression and alcohol use dx Requesting physician: Amber Shipley Discussed with referring provider: Yes Sources of Information: patient interviewed and chart reviewed HPI Narrative: Patient is a 64-year-old male with a long history of recurrent depression treatment resistant and alcohol use disorder severe. Patient was admitted to medical floor hospitalist service for alcohol withdrawal severe hypertriglyceridemia and had also experienced a fall at some point where he fractured a spinal segment. Patient complained of depression and thoughts of suicide and was transferred to the psychiatric unit. He had had a course of ECT in December [facility] after in its some point relapse with alcohol and depression. 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 The patient had failed a course of TMS a number of months ago and was eventually admitted to the inpatient psychiatric service and had a course of ECT which seemed to be quite helpful. Will was also clears at the patient had not been forthcoming regarding his alcohol use for at least a month prior to the admission stating he had been sober for a number of months prior to that. Patient was discharged and [facility] under the care of Dr. Bosch . The patient did not do ongoing maintenance ECT treatment except for briefly. The patient had [facility] status post ECT was on Latuda naltrexone Topamax started on buspirone encouraged to also take guanfacine for anxiety. Past Psychiatric History: Outpatient psychiatrist- Dr. Desir No current tx IPLOC x2: [place] [facility] [place] and mention of an earlier admission to [facility] x[facility]: [facility] [place] 01/[place]25, remotely >10 yrs ago to [facility] x2: remote 12 years ago (reportedly impulsive in context of intoxication) History of past sobriety up to 4 years Denies h/o detox Previous medications: Zoloft, Paxil, Wellbutrin (most recent, was helpful until ineffective), Effexor (also felt to be helpful, eventually ineffective), Abilify, [place] (AE bad:), Seroquel, gabapentin, lorazepam, naltrexone, trazodone, topiramate ECT: series of 10 in 12/2024 (helpful) TMS: 11/2024 (not felt to be helpful) Elevated liver function tests and elevated triglycerides noted [facility] Medical History (Updated 04/20/25 @ 18:04 by Hemant May MD) Alcoholic liver disease Major depressive disorder, recurrent severe without psychotic features Hypertriglyceridemia Fracture of nasal bone Alcohol use disorder Fatigue Family History: father with depression, denies any other issues or addiction or suicides in family Social History: family is supportive; 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 lives with of 45 years ( and reunited), has 3 adult children and 4 grandchildren; 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 graduated HS in 1979 college x 2 yrs [employer] (phys ed and business) denies legal hx Substance History: Ongoing alcohol use disorder with recent severe withdrawal Trauma History: yes childhood Diagnostics Vital Signs (24Hr): Vital Signs - 24 hr 04/14/25 08:00 04/14/25 09:35 04/14/25 20:09 Temperature 98.5 F 97.5 F Pulse Rate 65 75 Respiratory Rate 18 Blood Pressure 81/44 L 101/58 L 113/56 L Pulse Oximetry 98 96 Oxygen Delivery Method Room Air Room Air BMI result Body Mass Index 37.3 EKG EKG Comment: Normal sinus rhythm QTC 420 nonspecific T changes lateral leads Imaging Radiology Impressions: ITS Impressions Ankle X-Ray 04/11/25 13:50 IMPRESSION: Status post tibiotalar arthroplasty. Degenerative changes as described. Electronically signed by: Jony Olivas MD 04/11/2025 01:59 PM EST RP Foot X-Ray 04/11/25 13:51 IMPRESSION: Status post tibiotalar arthroplasty. Degenerative changes as described. Electronically signed by: Jony Olivas MD 04/11/2025 01:59 PM EST RP Mental Status Exam Mental Status Exam Narrative: Pt is alert and oriented; behavior is isolative, staying in room, in bed all day; superficial but cooperative and friendly on approach; patient is not in distress; dressed in hospital, disheveled; mood is described as okay and affect withdrawn; eye contact appropriate; Speech is a little slowed soft and a little slow; psychomotor retardation present; thought process is organized and goal directed; Thought content is on tx but not much disclosed; otherwise pertinent to relevant topics and without any delusional content, paranoid ideations or grandiosity; denies any SI/HI. Denies AVH and there is no evidence of perceptual disturbance. Patient can not really explain his lack of aggressive treatment or follow-up after discharge from his last hospitalization His default position seems to be self medicating with alcohol he does state he had 2 years of sobriety. I did explain to the patient that unless he were willing to commit to intensive sobriety including residential his lack of sobriety makes his depression ultimately untreatable on less he is willing to commit to ongoing aggressive sobriety recommendation and follow-up. Patient did agree he does have a lack of motivation on the inpatient unit Medications Medications Current Medications Acetaminophen (Acetaminophen 325 Mg Tablet) 650 mg PO Q6H PRN PRN Reason: Headache/Pain, Scale 1-10 Last Admin: 04/11/25 20:40 Dose: 650 mg Al Hydroxide/Mg Hydroxide (Magnesium Hydrox/Alum Hydrox 30 Ml Oral.Susp) 30 ml PO Q6H PRN PRN Reason: Heartburn/Nausea Amlodipine Besylate (Amlodipine Besylate 10 Mg Tablet) 10 mg PO DAILY [facility]; Protocol Last Admin: 04/14/25 09:39 Dose: 10 mg Atorvastatin Calcium (Atorvastatin Calcium 80 Mg Tablet) 80 mg PO DAILY [facility] Last Admin: 04/14/25 08:49 Dose: 80 mg Clonidine HCl (Clonidine Hcl 0.1 Mg Tablet) 0.1 mg PO Q4H PRN; Protocol PRN Reason: severe anxiety Last Admin: 04/14/25 06:26 Dose: 0.1 mg Ezetimibe (Ezetimibe 10 Mg Tablet) 10 mg PO DAILY [facility] Last Admin: 04/14/25 08:48 Dose: 10 mg Escitalopram Oxalate (Escitalopram Oxalate 20 Mg Tablet) 20 mg PO BEDTIME [facility] Last Admin: 04/14/25 21:45 Dose: 20 mg Fenofibrate (Fenofibrate 160 Mg Tablet) 160 mg PO DAILY [facility] Last Admin: 04/14/25 08:48 Dose: 160 mg Folic Acid (Folic Acid 1 Mg Tablet) 1 mg PO DAILY [facility] Last Admin: 04/14/25 08:49 Dose: 1 mg Hydroxyzine HCl (Hydroxyzine Hcl 50 Mg Tablet) 50 mg PO Q6H PRN PRN Reason: mild anxiety Last Admin: 04/14/25 18:41 Dose: 50 mg Lidocaine (Lidocaine 4 % Patch Adh..Patch) 0.5 patch TRANSDERMA DAILY PRN; Protocol PRN Reason: back pain Lurasidone HCl (Lurasidone Hcl 80 Mg Tablet) 80 mg PO 1700 [facility] Last Admin: 04/14/25 18:41 Dose: 80 mg Magnesium Hydroxide (Milk Of Magnesia 30 Ml Oral.Susp) 30 ml PO DAILY PRN PRN Reason: Constipation Modafinil (Modafinil 100 Mg Tablet) 100 mg PO DAILY [facility] Multivitamins/Vitamin C (Multivitamin Tablet) 1 tab PO DAILY [facility] Last Admin: 04/14/25 08:48 Dose: 1 tab Naltrexone HCl (Naltrexone Hcl 50 Mg Tablet) 50 mg PO DAILY [facility] Last Admin: 04/14/25 08:49 Dose: 50 mg Nicotine Polacrilex (Nicotine Polacrilex 2 Mg Gum) 4 mg BUCCAL Q2H PRN PRN Reason: Nicotine Cravings Omeprazole (Omeprazole 20 Mg Capsule.Dr) 20 mg PO BEDTIME [facility] Last Admin: 04/14/25 21:45 Dose: 20 mg Quetiapine Fumarate (Quetiapine Fumarate 25 Mg Tablet) 25 mg PO TID PRN PRN Reason: breakthrough anxiety Last Admin: 04/14/25 18:41 Dose: 25 mg Thiamine HCl (Thiamine Hcl 100 Mg Tablet) 100 mg PO DAILY [facility] Last Admin: 04/14/25 08:49 Dose: 100 mg Topiramate (Topiramate 25 Mg Tablet) 50 mg PO BEDTIME [facility] Last Admin: 04/14/25 21:45 Dose: 50 mg Trazodone HCl (Trazodone Hcl 100 Mg Tablet) 100 mg PO BEDTIME [facility] Last Admin: 04/14/25 21:45 Dose: 100 mg Trazodone HCl (Trazodone Hcl 50 Mg Tablet) 50 mg PO BEDTIME PRN PRN Reason: Insomnia Last Admin: 04/10/25 20:30 Dose: 50 mg Allergies Allergies Allergy/AdvReac Type Severity Reaction Status Date / Time No Known Allergies Allergy Verified 04/01/25 12:28 Assessment & Plan Assessment & Plan (1) Major depressive disorder, recurrent severe without psychotic features: Status: Acute Code(s): F33.2 - Major depressive disorder, recurrent severe without psychotic features (2) Hypertriglyceridemia: Status: Acute Code(s): E78.1 - Pure hyperglyceridemia Plan Patient has not had ongoing stability from depression for an extended period of time. 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 He did respond to a course of ECT in December and did speak with the patient at the only way that I would recommend another course of ECT at this time would be if the patient will willing to do aggressive treatment including possibility if residential sober home and show a commitment to sobriety otherwise his default appears to be to going back to drinking which also has involved not taking responsibility lack of honesty at times in what he is doing in unless he could commit to this that it would be very hard to achieve any stability. Patient appeared to understand this and patient wish strongly to go forward with ECT as he felt it had been quite helpful and agreed with the above provisions also discussed with the patient the ongoing in potentially severe medical consequen lea of his chronic alcohol use Total time managing care of this patient today 60____ minutes.
[2025-04-15 07:45] VITALS: BP 107/65; PULSE 75; RESP 18; TEMP 36.9; O2SAT 95
[2025-04-15 09:07] VITALS: BP 105/65
--- NOTE | 2025-04-15 10:22 | HO.PSYCHPN ---
Subjective Subjective Date of Service: 04/15/25 Reason For Visit: recurrent major depression, alcohol use disorder Subjective Notes: Conditional Voluntary Healthcare Proxy: No Guardianship: No Medical Problems Affecting Mental Status: No Interim History: Pt reports Provigil has helped this a.m. Pt agrees to ECT trial and will attend milieu groups and will agree to CSS post discharge when ECT is completed. Today, discussed antidepressant trials. Identifies Venlafaxine as most helpful by history. Discussed this, along with Cymbalta with some benefits for pain mgt. Pt would like to trial Cymbalta. Attending groups this afternoon. Medication Compliance: Yes Side effects from medications: No Attending Groups: Yes Review of Systems Acute medical concerns: No Medical Review of Systems: unchanged Review of Systems Review of Systems Ankle foot pain Mental Status Exam Mental Status Exam Patient Appearance: Appropriate Patient Orientation: Person, Place, Time and Situation Level of Consciousness: Alert Patient Behavior: Talkative and Cooperative Mood Description: Depressed Affect Description: Flat Patient Cognition Impaired: No Ability to Follow Directions: Good Speech Pattern: Spontaneous Speech Memory Description: Intact Hallucinations: None Delusions: Not Present Thought Process: Rumination Thought Content: positive for Inez, positive for Circumstantial and positive for Perseveration Depressive Symptoms: Sleeping More Than Usual, Loss of Energy and Difficulty Concentrating Judgement: Fair Diagnostics Vital Signs (24Hr): Vital Signs - 24 hr 04/14/25 20:09 04/15/25 07:45 04/15/25 09:07 Temperature 97.5 F 98.4 F Pulse Rate 75 75 Respiratory Rate 18 18 Blood Pressure 113/56 L 107/65 105/65 Pulse Oximetry 96 95 Oxygen Delivery Method Room Air Room Air BMI result Body Mass Index 37.3 Imaging Radiology Impressions: ITS Impressions Ankle X-Ray 04/11/25 13:50 IMPRESSION: Status post tibiotalar arthroplasty. Degenerative changes as described. Electronically signed by: Jony Olivas MD 04/11/2025 01:59 PM EST RP Foot X-Ray 04/11/25 13:51 IMPRESSION: Status post tibiotalar arthroplasty. Degenerative changes as described. Electronically signed by: Jony Olivas MD 04/11/2025 01:59 PM EST RP Medications Medications Current Medications Acetaminophen (Acetaminophen 325 Mg Tablet) 650 mg PO Q6H PRN PRN Reason: Headache/Pain, Scale 1-10 Last Admin: 04/11/25 20:40 Dose: 650 mg Al Hydroxide/Mg Hydroxide (Magnesium Hydrox/Alum Hydrox 30 Ml Oral.Susp) 30 ml PO Q6H PRN PRN Reason: Heartburn/Nausea Amlodipine Besylate (Amlodipine Besylate 10 Mg Tablet) 10 mg PO DAILY [facility]; Protocol Last Admin: 04/15/25 09:07 Dose: 10 mg Atorvastatin Calcium (Atorvastatin Calcium 80 Mg Tablet) 80 mg PO DAILY [facility] Last Admin: 04/15/25 09:07 Dose: 80 mg Clonidine HCl (Clonidine Hcl 0.1 Mg Tablet) 0.1 mg PO Q4H PRN; Protocol PRN Reason: severe anxiety Last Admin: 04/14/25 23:44 Dose: 0.1 mg Ezetimibe (Ezetimibe 10 Mg Tablet) 10 mg PO DAILY [facility] Last Admin: 04/15/25 09:28 Dose: 10 mg Escitalopram Oxalate (Escitalopram Oxalate 20 Mg Tablet) 20 mg PO BEDTIME [facility] Last Admin: 04/14/25 21:45 Dose: 20 mg Fenofibrate (Fenofibrate 160 Mg Tablet) 160 mg PO DAILY [facility] Last Admin: 04/15/25 09:07 Dose: 160 mg Folic Acid (Folic Acid 1 Mg Tablet) 1 mg PO DAILY [facility] Last Admin: 04/15/25 09:07 Dose: 1 mg Hydroxyzine HCl (Hydroxyzine Hcl 50 Mg Tablet) 50 mg PO Q6H PRN PRN Reason: mild anxiety Last Admin: 04/15/25 05:19 Dose: 50 mg Lidocaine (Lidocaine 4 % Patch Adh..Patch) 0.5 patch TRANSDERMA DAILY PRN; Protocol PRN Reason: back pain Lurasidone HCl (Lurasidone Hcl 80 Mg Tablet) 80 mg PO 1700 [facility] Last Admin: 04/14/25 18:41 Dose: 80 mg Magnesium Hydroxide (Milk Of Magnesia 30 Ml Oral.Susp) 30 ml PO DAILY PRN PRN Reason: Constipation Modafinil (Modafinil 100 Mg Tablet) 100 mg PO DAILY [facility] Last Admin: 04/15/25 09:07 Dose: 100 mg Multivitamins/Vitamin C (Multivitamin Tablet) 1 tab PO DAILY [facility] Last Admin: 04/15/25 09:07 Dose: 1 tab Naltrexone HCl (Naltrexone Hcl 50 Mg Tablet) 50 mg PO DAILY [facility] Last Admin: 04/15/25 09:07 Dose: 50 mg Nicotine Polacrilex (Nicotine Polacrilex 2 Mg Gum) 4 mg BUCCAL Q2H PRN PRN Reason: Nicotine Cravings Omeprazole (Omeprazole 20 Mg Capsule.Dr) 20 mg PO BEDTIME [facility] Last Admin: 04/14/25 21:45 Dose: 20 mg Quetiapine Fumarate (Quetiapine Fumarate 25 Mg Tablet) 25 mg PO TID PRN PRN Reason: breakthrough anxiety Last Admin: 04/14/25 18:41 Dose: 25 mg Thiamine HCl (Thiamine Hcl 100 Mg Tablet) 100 mg PO DAILY [facility] Last Admin: 04/15/25 09:07 Dose: 100 mg Topiramate (Topiramate 25 Mg Tablet) 50 mg PO BEDTIME [facility] Last Admin: 04/14/25 21:45 Dose: 50 mg Trazodone HCl (Trazodone Hcl 100 Mg Tablet) 100 mg PO BEDTIME [facility] Last Admin: 04/14/25 21:45 Dose: 100 mg Trazodone HCl (Trazodone Hcl 50 Mg Tablet) 50 mg PO BEDTIME PRN PRN Reason: Insomnia Last Admin: 04/10/25 20:30 Dose: 50 mg Allergies Allergies Allergy/AdvReac Type Severity Reaction Status Date / Time No Known Allergies Allergy Verified 04/01/25 12:28 Assessment & Plan Assessment & Plan (1) Major depressive disorder, recurrent severe without psychotic features: Status: Acute Code(s): F33.2 - Major depressive disorder, recurrent severe without psychotic features (2) Anxiety: Status: Acute Code(s): F41.9 - Anxiety disorder, unspecified (3) Suicidal ideation: Status: Acute Code(s): R45.851 - Suicidal ideations (4) Alcohol use disorder: Status: Acute Code(s): F10.90 - Alcohol use, unspecified, uncomplicated (5) Low back pain: Status: Acute Code(s): M54.50 - Low back pain, unspecified Plan 64-year-old male with medical history of hypertension, type 2 diabetes, hyperlipidemia, compression fracture of L1, and psychiatric history of major depressive disorder, anxiety, and suicidal ideation, presented to [facility] ED on 04/01/2025 for worsening depression, SI, and a fall. Imaging were unrevealing. He was transferred to the ICU for treatment of metabolic syndrome. He endorsed SI before his discharge from the medical unit and therefore was transferred to yesterday. On interview with this provider, patient states that the reason for his psychiatric admission is suicide ideation and severe depression. He reports severe depression on/off, mostly on for the past several years. He feels hopeless, helpless, and worthless. He lacks interest to do things and has low energy. His symptoms are usually well controlled while on medication. However, he relapsed on drinking alcohol 3 weeks ago and stopped taking his psychotropic medications. He was drinking 5 or more nips daily. Prior to his recent relapse, he was sober for 2 years. He admits that his drinking may have worsened his depressive symptoms. He states that he stopped taking his medications because I didn't care anymore. He currently experiencing severe anxiety and depression. Regarding question about suicide ideation, he states that he does not have a plan, but if I went to sleep, I don't care if don't wake up. He denies hypomania or kaveh episodes. He denies HI/AVH. He reports severe left-sided low back pain which started after he fell the day before he presented to [facility] ED. CT abdomen/pelvis revealed acute to subacute superior endplate compression fracture at L1. His goal for this hospitalization is that I want to feel better about myself, and to get back on his medications. Formulation/Clinical reasoning: Patient has chronic anxiety and depression symptoms which worsened in the past 3 weeks when he stopped taking his psychotropic medications and relapsed on alcohol. His symptoms are well controlled on medications. Will continue current treatment regimen and make adjustment as needed. If he fails to respond to treatment, ECT may be ideal since it was effective in the past. Referred to addiction medicine. Lidocaine patch ordered and PT referral made for back pain. 04/10: Patient continues to be severely anxious and depressed. He also continues to experience intermittent left-sided low back pain. No SI/HI/AVH. Continue current treatment regimen. Encourage groups and to engage in physical therapy. Patient may receive inpatient ECT if he does not improve. Verbalized understanding and agreed with the plan. 04/11: Continue tx ECT consult Encourage milieu Right foot/ankle xrays 04/12 Patient says that his mood is better but he remains very anxious. Discussed options and patient agrees to trying Seroquel p.r.n. after reviewing risks/side effects of antipsychotics. 04/14: The depression is somewhat less. Anxiety is high Reports anergy as well I will do what I need to to feel better. Reviewed in team with Dr. May and Dr. Jacob. Dr. May met with pt and ECT will begin on 04/21. Denies SI,HI,AH,VH, SIBS Reports an increase of sleep and intact appetite. Pt asks to return to a regular diet as he reports poor choices on diabetic regime. Also asks that he not receive a safety tray. Intermittent group attendance Over the weekend Clonidine ordered prn along with Seroquel prn and Lidocaine Patch for pain. No new medical/diagnostic results. Plan: Provigil trial. 04/15: Pt reports Provigil has helped this a.m. Pt agrees to ECT trial and will attend milieu groups and will agree to CSS post discharge when ECT is completed. Today, discussed antidepressant trials. Identifies Venlafaxine as most helpful by history. Discussed this, along with Cymbalta with some benefits for pain mgt. Pt would like to trial Cymbalta. Attending groups this afternoon. Plan: Cymbalta 20 mg daily Plan Admit to M5. CV 15 minutes check. -Add Seroquel 25 mg p.r.n. for anxiety Diagnostics as needed. Collateral contact. Continue remainder of regime. Encouraged full milieu. Discharge planning. Reason for continued inpatient stay Substantial Risk for: rapid decompensation Time Spent With Patient Time: Total time managing care of this patient today ____ minutes.
[2025-04-15 20:00] VITALS: BP 107/60; PULSE 80; RESP 16; TEMP 36.4; O2SAT 98
--- NOTE | 2025-04-16 | ECG_ITS ---
Test Reason : ECT CLEARANCE Blood Pressure : */* mmHG Vent. Rate : 84 BPM Atrial Rate : 84 BPM P-R Int : 178 ms QRS Dur : 90 ms QT Int : 356 ms P-R-T Axes : 73 73 81 degrees QTcB Int : 420 ms Normal sinus rhythm Normal ECG When compared with ECG of 01-Apr-2025 15:02, Nonspecific T wave abnormality now evident in Lateral leads Referred By: Marly Aguilar Electronically Signed By: Leonard Velazquez
[2025-04-16 08:00] VITALS: BP 105/57; PULSE 80; RESP 18; TEMP 37.3; O2SAT 98
--- NOTE | 2025-04-16 08:16 | HO.ECT-CONS ---
History of Present Illness Data of Consult Service Date: 04/16/25 Primary Care Provider: Unknown Physician HPI 64-year-old male with a past medical history of major depressive disorder and generalized anxiety disorder , hypertension, hyperlipidemia, type 2 diabetes and history of EtOH use. Patient presents to the emergency room with concerns of suicidal ideation and depression. Prior to admit patient was not taking his medications. Patient noted to have chronically elevated LFT's likely secondary to EtOH use, positive EtOH on presentation to the ED. since admission his AST is improved to 83 in his ALT improved to 104. No leukocytosis, no anemia, TSH within normal limits. Patient was found to have hypertriglyceridemia that initially required admission to the ICU for an insulin drip and alcohol withdrawal. His triglycerides eventually plateaued around 1500. Prior to admission patient was drinking more heavily than normal. Patient also with a L1 fracture. Patient underwent ECT in December with no adverse reactions. Patient has no history of adverse reactions to anesthesia, his EKG demonstrates normal sinus rhythm with a QTC of 455. Denies any history of brain injury, denies any history of seizures. No active cardiac, pulmonary or neurological contraindications at this time. He denies any shortness of breath, dizziness, lightheadedness or any other concerning symptoms. [facility] Medical History (Updated 04/16/25 @ 14:41 by Marly Aguilar DNP) Hypertriglyceridemia Alcoholic liver disease Fracture of nasal bone Alcohol use disorder Major depressive disorder, recurrent severe without psychotic features Fatigue Social History Household Members: Spouse Housing: House Do you presently have visiting nurse or other home services: No Alcohol intake: current Alcohol intake frequency: 3 or more drinks per day Alcohol type: hard liquor Comment: PT Consult ordered Patient Tobacco Use Status: Never used Tobacco Currently Displaying Signs/Symptoms of Drug Intoxication Withdrawal: No Have you been hit, kicked, punched, or otherwise hurt by someone within the past year? If so, by whom?: No Do you feel safe in your current relationship?: Yes Is there a partner from a previous relationship who is making you feel unsafe now?: No Are you made to feel afraid or neglected: No Spiritual Healthcare Practices: Orthodoxy Advance Directives: Yes Advance Directives Information Provided: No Advance Directives on File: Yes Advance Directives Date on File: 04/02/25 Do you have thoughts of harming others: None Do you have a plan to hurt others: No Plan Recently lost weight without trying: No Eating poorly because of decreased appetite: No Nutrition Risks: No Nutritional Risk Poor oral hygiene: No service: No Sexual orientation: Straight/Heterosexual Meds Allergies Allergy/AdvReac Type Severity Reaction Status Date / Time No Known Allergies Allergy Verified 04/01/25 12:28 Active Medications: Current Medications Acetaminophen (Acetaminophen 325 Mg Tablet) 650 mg PO Q6H PRN PRN Reason: Headache/Pain, Scale 1-10 Last Admin: 04/11/25 20:40 Dose: 650 mg Al Hydroxide/Mg Hydroxide (Magnesium Hydrox/Alum Hydrox 30 Ml Oral.Susp) 30 ml PO Q6H PRN PRN Reason: Heartburn/Nausea Amlodipine Besylate (Amlodipine Besylate 10 Mg Tablet) 10 mg PO DAILY [facility]; Protocol Last Admin: 04/15/25 09:07 Dose: 10 mg Atorvastatin Calcium (Atorvastatin Calcium 80 Mg Tablet) 80 mg PO DAILY [facility] Last Admin: 04/15/25 09:07 Dose: 80 mg Clonidine HCl (Clonidine Hcl 0.1 Mg Tablet) 0.1 mg PO Q4H PRN; Protocol PRN Reason: severe anxiety Last Admin: 04/15/25 21:20 Dose: 0.1 mg Duloxetine HCl (Duloxetine Hcl 20 Mg Capsule.Dr) 20 mg PO DAILY [facility] Ezetimibe (Ezetimibe 10 Mg Tablet) 10 mg PO DAILY [facility] Last Admin: 04/15/25 09:28 Dose: 10 mg Escitalopram Oxalate (Escitalopram Oxalate 20 Mg Tablet) 20 mg PO BEDTIME [facility] Last Admin: 04/15/25 21:21 Dose: 20 mg Fenofibrate (Fenofibrate 160 Mg Tablet) 160 mg PO DAILY [facility] Last Admin: 04/15/25 09:07 Dose: 160 mg Folic Acid (Folic Acid 1 Mg Tablet) 1 mg PO DAILY [facility] Last Admin: 04/15/25 09:07 Dose: 1 mg Hydroxyzine HCl (Hydroxyzine Hcl 50 Mg Tablet) 50 mg PO Q6H PRN PRN Reason: mild anxiety Last Admin: 04/15/25 17:35 Dose: 50 mg Lidocaine (Lidocaine 4 % Patch Adh..Patch) 0.5 patch TRANSDERMA DAILY PRN; Protocol PRN Reason: back pain Lurasidone HCl (Lurasidone Hcl 80 Mg Tablet) 80 mg PO 1700 [facility] Last Admin: 04/15/25 17:32 Dose: 80 mg Magnesium Hydroxide (Milk Of Magnesia 30 Ml Oral.Susp) 30 ml PO DAILY PRN PRN Reason: Constipation Modafinil (Modafinil 100 Mg Tablet) 100 mg PO DAILY [facility] Last Admin: 04/15/25 09:07 Dose: 100 mg Multivitamins/Vitamin C (Multivitamin Tablet) 1 tab PO DAILY [facility] Last Admin: 04/15/25 09:07 Dose: 1 tab Naltrexone HCl (Naltrexone Hcl 50 Mg Tablet) 50 mg PO DAILY [facility] Last Admin: 04/15/25 09:07 Dose: 50 mg Nicotine Polacrilex (Nicotine Polacrilex 2 Mg Gum) 4 mg BUCCAL Q2H PRN PRN Reason: Nicotine Cravings Omeprazole (Omeprazole 20 Mg Capsule.Dr) 20 mg PO BEDTIME [facility] Last Admin: 04/15/25 21:20 Dose: 20 mg Quetiapine Fumarate (Quetiapine Fumarate 25 Mg Tablet) 25 mg PO TID PRN PRN Reason: breakthrough anxiety Last Admin: 04/15/25 21:20 Dose: 25 mg Thiamine HCl (Thiamine Hcl 100 Mg Tablet) 100 mg PO DAILY [facility] Last Admin: 04/15/25 09:07 Dose: 100 mg Topiramate (Topiramate 25 Mg Tablet) 50 mg PO BEDTIME [facility] Last Admin: 04/15/25 21:20 Dose: 50 mg Trazodone HCl (Trazodone Hcl 100 Mg Tablet) 100 mg PO BEDTIME [facility] Last Admin: 04/15/25 21:21 Dose: 100 mg Trazodone HCl (Trazodone Hcl 50 Mg Tablet) 50 mg PO BEDTIME PRN PRN Reason: Insomnia Last Admin: 04/10/25 20:30 Dose: 50 mg Home Medications ?Medication ?Instructions ?Recorded ?Confirmed ?Last Taken ?Type ezetimibe 10 mg tablet (Zetia) 10 mg PO DAILY 12/19/24 04/08/25 03/23/25 History omega-3 acid ethyl esters 1 gram 2 cap PO BID 12/19/24 04/08/25 03/23/25 History capsule rosuvastatin 20 mg tablet 20 mg PO DAILY 12/19/24 04/08/25 03/23/25 History amlodipine 10 mg tablet 10 mg PO DAILY 01/31/25 04/08/25 03/23/25 History fenofibrate 160 mg tablet 160 mg PO DAILY 01/31/25 04/08/25 03/23/25 History osbnwskc-kd-nabaf 300 mcg-K 60 1 tab PO DAILY 01/31/25 04/08/25 03/23/25 History mcg-lycop 600 mcg-lutein 300 mcg tablet (Centrum Silver Men) topiramate 50 mg tablet 50 mg PO BEDTIME 01/31/25 04/08/25 03/23/25 History trazodone 100 mg tablet 100 mg PO BEDTIME insomnia 04/02/25 04/08/25 03/23/25 History Physical Exam Vital Signs and Narrative: Vital Signs: Last Vital Signs Temp 99.1 F 04/16/25 08:00 Pulse 80 04/16/25 08:00 Resp 18 04/16/25 08:00 BP 105/57 L 04/16/25 08:00 Pulse Ox 98 04/16/25 08:00 O2 Del Method Room Air 04/16/25 08:00 BMI result Body Mass Index 37.3 Alert and oriented X3, able to give good history. Flat affect Neuro: CN II-X11 intact, no deficits, visual acuity intact EYES: PERRLA, EOM intact ENT: Hearing intact, lips moist Cardiac: S1 S2 RRR, No ectopy Pulmonary: Lungs clear to auscultation, No increased WOB. Abdominal: BS active in all 4 quadrants, no guarding or tenderness MSK: Strength 5/5 upper and lower extremities : Deferred Extremities: No edema in lower extremities Psych: mood stable, Quiet and cooperative. Skin: Warm and dry, Intact Assessment and Plan (1) Hypertriglyceridemia: Status: Acute Plan 64-year-old male with medical history as listed below admitted to [facility] for consideration of ECT treatment due to worsening depression. Depression/anxiety/EtOH use Plan for possible ECT treatment starting next week Thiamine/folic acid Hypertension/hyperlipidemia/History of hypertriglyceridemia Continue amlodipine, Zetia, and fenofibrate as well as atorvastatin. Followed by endocrinology Dr. [place]ot[place] [facility] [place]. Encourage alcohol cessation. Transaminitis Trending down, likely due to ETOH use. AST is improved to 83 and his ALT improved to 104. Trending downwards. Type 2 diabetes A1c is 5.5 Patient will need to follow up with primary care doctor Continue diet exercise Recently lost more than 20 pounds due to lifestyle changes. ECT risk stratification Patient without previous problems with anesthesia, no history of ECT treatments RCRI 0 points, no indication for cardiac workup or treatment indicated at this time. Patient denies any past problems with anesthesia. Recent EKG 04/01/2025 showed QTc 455, no evidence of ischemic changes. BP is stable. Will update EKG Based on stated PMH, HPI, and physical exam, there are no There are no obvious contraindications to the planned procedure Thank you for allowing me to participate in the care of this patient. Please notify medical provider with any changes in condition or concerns.
--- NOTE | 2025-04-16 10:42 | P.PNPSI_ITS ---
Subjective Subjective Date of Service: 04/16/25 Reason For Visit: recurrent major depression, alcohol use disorder Subjective Notes: Conditional Voluntary Healthcare Proxy: No Guardianship: No Medical Problems Affecting Mental Status: No Interim History: Team reports pt slept last evening. He received medical clearance for ECT today Tolerating Cymbalta, Provigil. Will begin Lexapro tapering to 15 mg this evening Not attending groups Rates anxiety/depressive sx 8 today. Medication Compliance: Yes Side effects from medications: No Attending Groups: No Review of Systems Acute medical concerns: No Medical Review of Systems: unchanged Review of Systems Review of Systems Ankle discomfort Mental Status Exam Mental Status Exam Patient Appearance: Appropriate Patient Orientation: Person, Place, Time and Situation Level of Consciousness: Alert Patient Behavior: Talkative and Cooperative Mood Description: Depressed Affect Description: Flat Patient Cognition Impaired: No Ability to Follow Directions: Good Speech Pattern: Spontaneous Speech Memory Description: Intact Hallucinations: None Delusions: Not Present Thought Process: Rumination Thought Content: positive for [place], positive for Circumstantial and positive for Perseveration Depressive Symptoms: Sleeping More Than Usual, Loss of Energy and Difficulty Concentrating Judgement: Fair Diagnostics Vital Signs (24Hr): Vital Signs - 24 hr 04/15/25 20:00 04/16/25 08:00 Temperature 97.5 F 99.1 F Pulse Rate 80 80 Respiratory Rate 16 18 Blood Pressure 107/60 105/57 L Pulse Oximetry 98 98 Oxygen Delivery Method Room Air Room Air BMI result Body Mass Index 37.3 Imaging Radiology Impressions: ITS Impressions Ankle X-Ray 04/11/25 13:50 IMPRESSION: Status post tibiotalar arthroplasty. Degenerative changes as described. Electronically signed by: Jony Olivas MD 04/11/2025 01:59 PM EST RP Foot X-Ray 04/11/25 13:51 IMPRESSION: Status post tibiotalar arthroplasty. Degenerative changes as described. Electronically signed by: Jony Olivas MD 04/11/2025 01:59 PM EST RP Medications Medications Current Medications Acetaminophen (Acetaminophen 325 Mg Tablet) 650 mg PO Q6H PRN PRN Reason: Headache/Pain, Scale 1-10 Last Admin: 04/11/25 20:40 Dose: 650 mg Al Hydroxide/Mg Hydroxide (Magnesium Hydrox/Alum Hydrox 30 Ml Oral.Susp) 30 ml PO Q6H PRN PRN Reason: Heartburn/Nausea Amlodipine Besylate (Amlodipine Besylate 10 Mg Tablet) 10 mg PO DAILY [facility]; Protocol Last Admin: 04/16/25 09:12 Dose: 10 mg Atorvastatin Calcium (Atorvastatin Calcium 80 Mg Tablet) 80 mg PO DAILY [facility] Last Admin: 04/16/25 09:12 Dose: 80 mg Clonidine HCl (Clonidine Hcl 0.1 Mg Tablet) 0.1 mg PO Q4H PRN; Protocol PRN Reason: severe anxiety Last Admin: 04/15/25 21:20 Dose: 0.1 mg Duloxetine HCl (Duloxetine Hcl 20 Mg Capsule.Dr) 20 mg PO DAILY [facility] Last Admin: 04/16/25 09:12 Dose: 20 mg Ezetimibe (Ezetimibe 10 Mg Tablet) 10 mg PO DAILY [facility] Last Admin: 04/16/25 09:12 Dose: 10 mg Escitalopram Oxalate (Escitalopram Oxalate 20 Mg Tablet) 20 mg PO BEDTIME [facility] Last Admin: 04/15/25 21:21 Dose: 20 mg Fenofibrate (Fenofibrate 160 Mg Tablet) 160 mg PO DAILY [facility] Last Admin: 04/16/25 09:12 Dose: 160 mg Folic Acid (Folic Acid 1 Mg Tablet) 1 mg PO DAILY [facility] Last Admin: 04/16/25 09:12 Dose: 1 mg Hydroxyzine HCl (Hydroxyzine Hcl 50 Mg Tablet) 50 mg PO Q6H PRN PRN Reason: mild anxiety Last Admin: 04/15/25 17:35 Dose: 50 mg Lidocaine (Lidocaine 4 % Patch Adh..Patch) 0.5 patch TRANSDERMA DAILY PRN; Protocol PRN Reason: back pain Lurasidone HCl (Lurasidone Hcl 80 Mg Tablet) 80 mg PO 1700 [facility] Last Admin: 04/15/25 17:32 Dose: 80 mg Magnesium Hydroxide (Milk Of Magnesia 30 Ml Oral.Susp) 30 ml PO DAILY PRN PRN Reason: Constipation Modafinil (Modafinil 100 Mg Tablet) 100 mg PO DAILY [facility] Last Admin: 04/16/25 09:12 Dose: 100 mg Multivitamins/Vitamin C (Multivitamin Tablet) 1 tab PO DAILY [facility] Last Admin: 04/16/25 09:12 Dose: 1 tab Naltrexone HCl (Naltrexone Hcl 50 Mg Tablet) 50 mg PO DAILY [facility] Last Admin: 04/16/25 09:12 Dose: 50 mg Nicotine Polacrilex (Nicotine Polacrilex 2 Mg Gum) 4 mg BUCCAL Q2H PRN PRN Reason: Nicotine Cravings Omeprazole (Omeprazole 20 Mg Capsule.Dr) 20 mg PO BEDTIME [facility] Last Admin: 04/15/25 21:20 Dose: 20 mg Quetiapine Fumarate (Quetiapine Fumarate 25 Mg Tablet) 25 mg PO TID PRN PRN Reason: breakthrough anxiety Last Admin: 04/15/25 21:20 Dose: 25 mg Thiamine HCl (Thiamine Hcl 100 Mg Tablet) 100 mg PO DAILY [facility] Last Admin: 04/16/25 09:12 Dose: 100 mg Topiramate (Topiramate 25 Mg Tablet) 50 mg PO BEDTIME [facility] Last Admin: 04/15/25 21:20 Dose: 50 mg Trazodone HCl (Trazodone Hcl 100 Mg Tablet) 100 mg PO BEDTIME [facility] Last Admin: 04/15/25 21:21 Dose: 100 mg Trazodone HCl (Trazodone Hcl 50 Mg Tablet) 50 mg PO BEDTIME PRN PRN Reason: Insomnia Last Admin: 04/10/25 20:30 Dose: 50 mg Allergies Allergies Allergy/AdvReac Type Severity Reaction Status Date / Time No Known Allergies Allergy Verified 04/01/25 12:28 Assessment & Plan Assessment & Plan (1) Major depressive disorder, recurrent severe without psychotic features: Status: Inactive Code(s): F33.2 - Major depressive disorder, recurrent severe without psychotic features (2) Anxiety: Status: Acute Code(s): F41.9 - Anxiety disorder, unspecified (3) Suicidal ideation: Status: Acute Code(s): R45.851 - Suicidal ideations (4) Alcohol use disorder: Status: Inactive Code(s): F10.90 - Alcohol use, unspecified, uncomplicated (5) Low back pain: Status: Acute Code(s): M54.50 - Low back pain, unspecified Plan 64-year-old male with medical history of hypertension, type 2 diabetes, hyperlipidemia, compression fracture of L1, and psychiatric history of major depressive disorder, anxiety, and suicidal ideation, presented to [facility] on 04/[facility]/[place]25 for worsening depression, SI, and a fall. Imaging were unrevealing. He was transferred to the ICU for treatment of metabolic syndrome. He endorsed SI before his discharge from the medical unit and therefore was transferred to M5 yesterday. On interview with this provider, patient states that the reason for his psychiatric admission is suicide ideation and severe depression. He reports severe depression on/off, mostly on for the past several years. He feels hopeless, helpless, and worthless. He lacks interest to do things and has low energy. His symptoms are usually well controlled while on medication. However, he relapsed on drinking alcohol 3 weeks ago and stopped taking his psychotropic medications. He was drinking 5 or more nips daily. Prior to his recent relapse, he was sober for 2 years. He admits that his drinking may have worsened his depressive symptoms. He states that he stopped taking his medications because I didn't care anymore. He currently experiencing severe anxiety and depression. Regarding question about suicide ideation, he states that he does not have a plan, but if I went to sleep, I don't care if don't wake up. He denies hypomania or kaveh episodes. He denies HI/AVH. He reports severe left-sided low back pain which started after he fell the day before he presented to [facility]. [place] abdomen/pelvis revealed acute to subacute superior endplate compression fracture at L1. His goal for this hospitalization is that I want to feel better about myself, and to get back on his medications. Formulation/Clinical reasoning: Patient has chronic anxiety and depression symptoms which worsened in the past 3 weeks when he stopped taking his psychotropic medications and relapsed on alcohol. His symptoms are well controlled on medications. Will continue current treatment regimen and make adjustment as needed. If he fails to respond to treatment, ECT may be ideal since it was effective in the past. Referred to addiction medicine. Lidocaine patch ordered and PT referral made for back pain. 04/10: Patient continues to be severely anxious and depressed. He also continues to experience intermittent left-sided low back pain. No SI/HI/AVH. Continue current treatment regimen. Encourage groups and to engage in physical therapy. Patient may receive inpatient ECT if he does not improve. Verbalized understanding and agreed with the plan. 04/11: Continue tx ECT consult Encourage milieu Right foot/ankle xrays 04/12 Patient says that his mood is better but he remains very anxious. Discussed options and patient agrees to trying Seroquel p.r.n. after reviewing risks/side effects of antipsychotics. 04/14: The depression is somewhat less. Anxiety is high Reports anergy as well I will do what I need to to feel better. Reviewed in team with Dr. May and Dr. Jacob. Dr. May met with pt and ECT will begin on 04/21. Denies SI,HI,AH,VH, SIBS Reports an increase of sleep and intact appetite. Pt asks to return to a regular diet as he reports poor choices on diabetic regime. Also asks that he not receive a safety tray. Intermittent group attendance Over the weekend Clonidine ordered prn along with Seroquel prn and Lidocaine Patch for pain. No new medical/diagnostic results. Plan: Provigil trial. 04/15: Pt reports Provigil has helped this a.m. Pt agrees to ECT trial and will attend milieu groups and will agree to CSS post discharge when ECT is completed. Today, discussed antidepressant trials. Identifies Venlafaxine as most helpful by history. Discussed this, along with Cymbalta with some benefits for pain mgt. Pt would like to trial Cymbalta. Attending groups this afternoon. Plan: Cymbalta 20 mg daily 04/16: Team reports pt slept last evening. He received medical clearance for ECT today Tolerating Cymbalta, Provigil. Will begin Lexapro tapering to 15 mg this evening Not attending groups Rates anxiety/depressive sx 8 today. Plan Admit to M5. CV 15 minutes check. -Add Seroquel 25 mg p.r.n. for anxiety Diagnostics as needed. Collateral contact. Continue remainder of regime. Encouraged full milieu. Discharge planning. Reason for continued inpatient stay Substantial Risk for: rapid decompensation Time Spent With Patient Time: Total time managing care of this patient today ____ minutes.
[2025-04-16 20:00] VITALS: BP 119/68; PULSE 94; TEMP 37; O2SAT 98
[2025-04-16 20:53] VITALS: BP 119/68
[2025-04-17 07:00] VITALS: BMI 36.4
[2025-04-17 07:58] VITALS: BP 108/60; PULSE 79; RESP 17; TEMP 36.7; O2SAT 97
[2025-04-17 09:19] VITALS: BP 108/60
[2025-04-17 13:29] VITALS: BP 126/76
[2025-04-17 20:00] VITALS: BP 104/62; PULSE 79; TEMP 37; O2SAT 96
[2025-04-17 21:06] VITALS: BP 104/62
--- NOTE | 2025-04-17 23:09 | P.PNPSI_ITS ---
Subjective Subjective Date of Service: 04/17/25 Reason For Visit: recurrent major depression, alcohol use disorder Subjective Notes: Conditional Voluntary Healthcare Proxy: No Guardianship: No Medical Problems Affecting Mental Status: No Interim History: Medical record and nursing notes reviewed; case discussed during rounds with team/nursing staff, and met with patient for supportive therapy/psychoeducation, as well as medication management. Meet with patient in assigned room, report no issues with appetite or sleep. Report anxiety an 8/10 and depression a 710. He eats breakfast in room. Denies alcohol craving. Report he went to a group yesterday. Denies SI/SIB/HI/AVH Per nursing, meds compliant, slept for 7 hours, compliant with meds, no side effect. mostly isolated to self in room. Constricted affect.Continue to encourage group participation. Medication Compliance: Yes Side effects from medications: No Attending Groups: No Review of Systems Acute medical concerns: No Medical Review of Systems: unchanged Review of Systems Review of Systems Denies physical discomfort Yes all other systems are reviewed and are negative Mental Status Exam Mental Status Exam Narrative: A+O, isolative, depressed, anxious. No SI/SIB/HI/AVH. Fair insight and judgment. Diagnostics Vital Signs (24Hr): Vital Signs - 24 hr 04/17/25 07:58 04/17/25 09:19 04/17/25 13:29 Temperature 98.1 F Pulse Rate 79 Respiratory Rate 17 Blood Pressure 108/60 108/60 126/76 Pulse Oximetry 97 Oxygen Delivery Method Room Air 04/17/25 20:00 04/17/25 21:06 Temperature 98.6 F Pulse Rate 79 Respiratory Rate Blood Pressure 104/62 104/62 Pulse Oximetry 96 Oxygen Delivery Method Room Air BMI result Body Mass Index 36.4 Imaging Radiology Impressions: ITS Impressions Ankle X-Ray 04/11/25 13:50 IMPRESSION: Status post tibiotalar arthroplasty. Degenerative changes as described. Electronically signed by: Jony Olivas MD 04/11/2025 01:59 PM EST RP Foot X-Ray 04/11/25 13:51 IMPRESSION: Status post tibiotalar arthroplasty. Degenerative changes as described. Electronically signed by: Jony Olivas MD 04/11/2025 01:59 PM EST RP Medications Medications Current Medications Acetaminophen (Acetaminophen 325 Mg Tablet) 650 mg PO Q6H PRN PRN Reason: Headache/Pain, Scale 1-10 Last Admin: 04/11/25 20:40 Dose: 650 mg Al Hydroxide/Mg Hydroxide (Magnesium Hydrox/Alum Hydrox 30 Ml Oral.Susp) 30 ml PO Q6H PRN PRN Reason: Heartburn/Nausea Amlodipine Besylate (Amlodipine Besylate 10 Mg Tablet) 10 mg PO DAILY [facility]; Protocol Last Admin: 04/17/25 09:19 Dose: 10 mg Atorvastatin Calcium (Atorvastatin Calcium 80 Mg Tablet) 80 mg PO DAILY [facility] Last Admin: 04/17/25 09:19 Dose: 80 mg Clonidine HCl (Clonidine Hcl 0.1 Mg Tablet) 0.1 mg PO Q4H PRN; Protocol PRN Reason: severe anxiety Last Admin: 04/17/25 21:06 Dose: 0.1 mg Duloxetine HCl (Duloxetine Hcl 20 Mg Capsule.Dr) 20 mg PO DAILY [facility] Last Admin: 04/17/25 09:19 Dose: 20 mg Ezetimibe (Ezetimibe 10 Mg Tablet) 10 mg PO DAILY [facility] Last Admin: 04/17/25 09:19 Dose: 10 mg Escitalopram Oxalate (Escitalopram Oxalate 5 Mg Tablet) 15 mg PO BEDTIME [facility] Last Admin: 04/17/25 21:05 Dose: 15 mg Fenofibrate (Fenofibrate 160 Mg Tablet) 160 mg PO DAILY [facility] Last Admin: 04/17/25 09:19 Dose: 160 mg Folic Acid (Folic Acid 1 Mg Tablet) 1 mg PO DAILY [facility] Last Admin: 04/17/25 09:19 Dose: 1 mg Hydroxyzine HCl (Hydroxyzine Hcl 50 Mg Tablet) 50 mg PO Q6H PRN PRN Reason: mild anxiety Last Admin: 04/15/25 17:35 Dose: 50 mg Lidocaine (Lidocaine 4 % Patch Adh..Patch) 0.5 patch TRANSDERMA DAILY PRN; Protocol PRN Reason: back pain Lurasidone HCl (Lurasidone Hcl 80 Mg Tablet) 80 mg PO 1700 [facility] Last Admin: 04/17/25 18:31 Dose: 80 mg Magnesium Hydroxide (Milk Of Magnesia 30 Ml Oral.Susp) 30 ml PO DAILY PRN PRN Reason: Constipation Modafinil (Modafinil 100 Mg Tablet) 100 mg PO DAILY [facility] Last Admin: 04/17/25 09:20 Dose: 100 mg Multivitamins/Vitamin C (Multivitamin Tablet) 1 tab PO DAILY [facility] Last Admin: 04/17/25 09:20 Dose: 1 tab Naltrexone HCl (Naltrexone Hcl 50 Mg Tablet) 50 mg PO DAILY [facility] Last Admin: 04/17/25 09:19 Dose: 50 mg Nicotine Polacrilex (Nicotine Polacrilex 2 Mg Gum) 4 mg BUCCAL Q2H PRN PRN Reason: Nicotine Cravings Omeprazole (Omeprazole 20 Mg Capsule.Dr) 20 mg PO BEDTIME [facility] Last Admin: 04/17/25 21:05 Dose: 20 mg Quetiapine Fumarate (Quetiapine Fumarate 25 Mg Tablet) 25 mg PO TID PRN PRN Reason: breakthrough anxiety Last Admin: 04/17/25 21:05 Dose: 25 mg Thiamine HCl (Thiamine Hcl 100 Mg Tablet) 100 mg PO DAILY [facility] Last Admin: 04/17/25 09:20 Dose: 100 mg Topiramate (Topiramate 25 Mg Tablet) 50 mg PO BEDTIME [facility] Last Admin: 04/17/25 21:05 Dose: 50 mg Trazodone HCl (Trazodone Hcl 100 Mg Tablet) 100 mg PO BEDTIME [facility] Last Admin: 04/17/25 21:05 Dose: 100 mg Trazodone HCl (Trazodone Hcl 50 Mg Tablet) 50 mg PO BEDTIME PRN PRN Reason: Insomnia Last Admin: 04/10/25 20:30 Dose: 50 mg Allergies Allergies Allergy/AdvReac Type Severity Reaction Status Date / Time No Known Allergies Allergy Verified 04/01/25 12:28 Assessment & Plan Assessment & Plan (1) Major depressive disorder, recurrent severe without psychotic features: Status: Inactive Code(s): F33.2 - Major depressive disorder, recurrent severe without psychotic features (2) Anxiety: Status: Acute Code(s): F41.9 - Anxiety disorder, unspecified (3) Suicidal ideation: Status: Acute Code(s): R45.851 - Suicidal ideations (4) Alcohol use disorder: Status: Inactive Code(s): F10.90 - Alcohol use, unspecified, uncomplicated (5) Low back pain: Status: Acute Code(s): M54.50 - Low back pain, unspecified Plan 64-year-old male with medical history of hypertension, type 2 diabetes, hyperlipidemia, compression fracture of L1, and psychiatric history of major depressive disorder, anxiety, and suicidal ideation, presented to [facility] on 04/01/2025 for worsening depression, SI, and a fall. Imaging were unrevealing. He was transferred to the ICU for treatment of metabolic syndrome. He endorsed SI before his discharge from the medical unit and therefore was transferred to yesterday. On interview with this provider, patient states that the reason for his psychiatric admission is suicide ideation and severe depression. He reports severe depression on/off, mostly on for the past several years. He feels hopeless, helpless, and worthless. He lacks interest to do things and has low energy. His symptoms are usually well controlled while on medication. However, he relapsed on drinking alcohol 3 weeks ago and stopped taking his psychotropic medications. He was drinking 5 or more nips daily. Prior to his recent relapse, he was sober for 2 years. He admits that his drinking may have worsened his depressive symptoms. He states that he stopped taking his medications because I didn't care anymore. He currently experiencing severe anxiety and depression. Regarding question about suicide ideation, he states that he does not have a plan, but if I went to sleep, I don't care if don't wake up. He denies hypomania or kaveh episodes. He denies HI/AVH. He reports severe left-sided low back pain which started after he fell the day before he presented to [facility]. CT abdomen/pelvis revealed acute to subacute superior endplate compression fracture at L1. His goal for this hospitalization is that I want to feel better about myself, and to get back on his medications. Formulation/Clinical reasoning: Patient has chronic anxiety and depression symptoms which worsened in the past 3 weeks when he stopped taking his psychotropic medications and relapsed on alcohol. His symptoms are well controlled on medications. Will continue cu rrent treatment regimen and make adjustment as needed. If he fails to respond to treatment, ECT may be ideal since it was effective in the past. Referred to addiction medicine. Lidocaine patch ordered and PT referral made for back pain. 04/10: Patient continues to be severely anxious and depressed. He also continues to experience intermittent left-sided low back pain. No SI/HI/AVH. Continue current treatment regimen. Encourage groups and to engage in physical therapy. Patient may receive inpatient ECT if he does not improve. Verbalized understanding and agreed with the plan. 04/11: Continue tx ECT consult Encourage milieu Right foot/ankle xrays 04/12 Patient says that his mood is better but he remains very anxious. Discussed options and patient agrees to trying Seroquel p.r.n. after reviewing risks/side effects of antipsychotics. 04/14: The depression is somewhat less. Anxiety is high Reports anergy as well I will do what I need to to feel better. Reviewed in team with Dr. May and Dr. Jacob. Dr. May met with pt and ECT will begin on 04/21. Denies SI,HI,AH,VH, SIBS Reports an increase of sleep and intact appetite. Pt asks to return to a regular diet as he reports poor choices on diabetic regime. Also asks that he not receive a safety tray. Intermittent group attendance Over the weekend Clonidine ordered prn along with Seroquel prn and Lidocaine Patch for pain. No new medical/diagnostic results. Plan: Provigil trial. 04/15: Pt reports Provigil has helped this a.m. Pt agrees to ECT trial and will attend milieu groups and will agree to CSS post discharge when ECT is completed. Today, discussed antidepressant trials. Identifies Venlafaxine as most helpful by history. Discussed this, along with Cymbalta with some benefits for pain mgt. Pt would like to trial Cymbalta. Attending groups this afternoon. Plan: Cymbalta 20 mg daily 04/16: Team reports pt slept last evening. He received medical clearance for ECT today Tolerating Cymbalta, Provigil. Will begin Lexapro tapering to 15 mg this evening Not attending groups Rates anxiety/depressive sx 8 today. 04/17/25: Meet with patient in assigned room, report no issues with appetite or sleep. Report anxiety an 8/10 and depression a 7/10. He eats breakfast in room. Denies alcohol craving. Report he went to a group yesterday. Denies SI/SIB/HI/AVH Per nursing, meds compliant, slept for 7 hours, compliant with meds, no side effect. mostly isolated to self in room. Constricted affect.Continue to encourage group participation. Plan Admit to M5. CV 15 minutes check. -Add Seroquel 25 mg p.r.n. for anxiety Diagnostics as needed. Collateral contact. Continue remainder of regime. Encouraged full milieu. Discharge planning. Patient educated on: diagnosis, medication risk/benefits, substance abuse and therapeutic strategies Reason for continued inpatient stay Substantial Risk for: med/psych decompensation Time Spent With Patient Time: Total time managing care of this patient today ____ minutes.
[2025-04-18 08:00] VITALS: BP 111/68; PULSE 69; RESP 18; TEMP 36.4; O2SAT 97
--- NOTE | 2025-04-18 10:17 | HO.PSYCHPN ---
Subjective Subjective Date of Service: 04/18/25 Reason For Visit: recurrent major depression, alcohol use disorder Subjective Notes: Conditional Voluntary Healthcare Proxy: No Guardianship: No Medical Problems Affecting Mental Status: No Interim History: Pt denies SI,HI,AH,VH He is attending some groups He is visable today in the milieu. He has informed his he as a fracture in his back and is unsure of tx plan. called pt's general lithographic worker to clarify. This was diagnosed when pt was on medicine, having a abdominal diagnostic. On 04/01 abdominal films for pancreatitis were completed. Compression Fx found on L1. STR was suggested by PT when discharged with no further recs when transferred to M5. Nehemias Fuller of PT has been following pt on M5 with exercises, stretching and observation with ambulation. He will need OP PT upon DC. Pt is anxious, apprehensive regarding ECT, however believes this is the appropriate thing to do. Discussed Cymbalta titration to 30 mg and decrease of Escitalopram to 10 mg which he agrees with. Medication Compliance: Yes Side effects from medications: No Attending Groups: Intermittent Review of Systems Acute medical concerns: No Medical Review of Systems: unchanged Review of Systems Review of Systems Denies today Mental Status Exam Mental Status Exam Patient Appearance: Appropriate Patient Orientation: Person, Place, Time and Situation Level of Consciousness: Alert Patient Behavior: Talkative and Cooperative Mood Description: Depressed Affect Description: Flat Patient Cognition Impaired: No Ability to Follow Directions: Good Speech Pattern: Spontaneous Speech Memory Description: Intact Hallucinations: None Delusions: Not Present Thought Process: Rumination Thought Content: positive for [place], positive for Circumstantial and positive for Perseveration Depressive Symptoms: Sleeping More Than Usual, Loss of Energy and Difficulty Concentrating Judgement: Fair Diagnostics Vital Signs (24Hr): Vital Signs - 24 hr 04/17/25 13:29 04/17/25 20:00 04/17/25 21:06 Temperature 98.6 F Pulse Rate 79 Respiratory Rate Blood Pressure 126/76 104/62 104/62 Pulse Oximetry 96 Oxygen Delivery Method Room Air 04/18/25 08:00 Temperature 97.5 F Pulse Rate 69 Respiratory Rate 18 Blood Pressure 111/68 Pulse Oximetry 97 Oxygen Delivery Method Room Air BMI result Body Mass Index 36.4 Imaging Radiology Impressions: ITS Impressions Ankle X-Ray 04/11/25 13:50 IMPRESSION: Status post tibiotalar arthroplasty. Degenerative changes as described. Electronically signed by: Jony Olivas MD 04/11/2025 01:59 PM EST RP Foot X-Ray 04/11/25 13:51 IMPRESSION: Status post tibiotalar arthroplasty. Degenerative changes as described. Electronically signed by: Jony Olivas MD 04/11/2025 01:59 PM EST RP Medications Medications Current Medications Acetaminophen (Acetaminophen 325 Mg Tablet) 650 mg PO Q6H PRN PRN Reason: Headache/Pain, Scale 1-10 Last Admin: 04/11/25 20:40 Dose: 650 mg Al Hydroxide/Mg Hydroxide (Magnesium Hydrox/Alum Hydrox 30 Ml Oral.Susp) 30 ml PO Q6H PRN PRN Reason: Heartburn/Nausea Amlodipine Besylate (Amlodipine Besylate 10 Mg Tablet) 10 mg PO DAILY [facility]; Protocol Last Admin: 04/18/25 08:29 Dose: 10 mg Atorvastatin Calcium (Atorvastatin Calcium 80 Mg Tablet) 80 mg PO DAILY [facility] Last Admin: 04/18/25 08:29 Dose: 80 mg Clonidine HCl (Clonidine Hcl 0.1 Mg Tablet) 0.1 mg PO Q4H PRN; Protocol PRN Reason: severe anxiety Last Admin: 04/17/25 21:06 Dose: 0.1 mg Duloxetine HCl (Duloxetine Hcl 20 Mg Capsule.Dr) 20 mg PO DAILY [facility] Last Admin: 04/18/25 08:29 Dose: 20 mg Ezetimibe (Ezetimibe 10 Mg Tablet) 10 mg PO DAILY [facility] Last Admin: 04/18/25 08:29 Dose: 10 mg Escitalopram Oxalate (Escitalopram Oxalate 5 Mg Tablet) 15 mg PO BEDTIME [facility] Last Admin: 04/17/25 21:05 Dose: 15 mg Fenofibrate (Fenofibrate 160 Mg Tablet) 160 mg PO DAILY [facility] Last Admin: 04/18/25 08:29 Dose: 160 mg Folic Acid (Folic Acid 1 Mg Tablet) 1 mg PO DAILY [facility] Last Admin: 04/18/25 08:29 Dose: 1 mg Hydroxyzine HCl (Hydroxyzine Hcl 50 Mg Tablet) 50 mg PO Q6H PRN PRN Reason: mild anxiety Last Admin: 04/15/25 17:35 Dose: 50 mg Lidocaine (Lidocaine 4 % Patch Adh..Patch) 0.5 patch TRANSDERMA DAILY PRN; Protocol PRN Reason: back pain Lurasidone HCl (Lurasidone Hcl 80 Mg Tablet) 80 mg PO 1700 [facility] Last Admin: 04/18/25 08:05 Dose: Not Given Magnesium Hydroxide (Milk Of Magnesia 30 Ml Oral.Susp) 30 ml PO DAILY PRN PRN Reason: Constipation Modafinil (Modafinil 100 Mg Tablet) 100 mg PO DAILY [facility] Last Admin: 04/18/25 08:29 Dose: 100 mg Multivitamins/Vitamin C (Multivitamin Tablet) 1 tab PO DAILY [facility] Last Admin: 04/18/25 08:29 Dose: 1 tab Naltrexone HCl (Naltrexone Hcl 50 Mg Tablet) 50 mg PO DAILY [facility] Last Admin: 04/18/25 08:29 Dose: 50 mg Nicotine Polacrilex (Nicotine Polacrilex 2 Mg Gum) 4 mg BUCCAL Q2H PRN PRN Reason: Nicotine Cravings Omeprazole (Omeprazole 20 Mg Capsule.Dr) 20 mg PO BEDTIME [facility] Last Admin: 04/17/25 21:05 Dose: 20 mg Quetiapine Fumarate (Quetiapine Fumarate 25 Mg Tablet) 25 mg PO TID PRN PRN Reason: breakthrough anxiety Last Admin: 04/17/25 21:05 Dose: 25 mg Thiamine HCl (Thiamine Hcl 100 Mg Tablet) 100 mg PO DAILY [facility] Last Admin: 04/18/25 08:29 Dose: 100 mg Topiramate (Topiramate 25 Mg Tablet) 50 mg PO BEDTIME [facility] Last Admin: 04/17/25 21:05 Dose: 50 mg Trazodone HCl (Trazodone Hcl 100 Mg Tablet) 100 mg PO BEDTIME [facility] Last Admin: 04/17/25 21:05 Dose: 100 mg Trazodone HCl (Trazodone Hcl 50 Mg Tablet) 50 mg PO BEDTIME PRN PRN Reason: Insomnia Last Admin: 04/10/25 20:30 Dose: 50 mg Allergies Allergies Allergy/AdvReac Type Severity Reaction Status Date / Time No Known Allergies Allergy Verified 04/01/25 12:28 Assessment & Plan Assessment & Plan (1) Major depressive disorder, recurrent severe without psychotic features: Status: Inactive Code(s): F33.2 - Major depressive disorder, recurrent severe without psychotic features (2) Anxiety: Status: Acute Code(s): F41.9 - Anxiety disorder, unspecified (3) Suicidal ideation: Status: Acute Code(s): R45.851 - Suicidal ideations (4) Alcohol use disorder: Status: Inactive Code(s): F10.90 - Alcohol use, unspecified, uncomplicated (5) Low back pain: Status: Acute Code(s): M54.50 - Low back pain, unspecified Plan 64-year-old male with medical history of hypertension, type 2 diabetes, hyperlipidemia, compression fracture of L1, and psychiatric history of major depressive disorder, anxiety, and suicidal ideation, presented to [facility] on 04/01/2025 for worsening depression, SI, and a fall. Imaging were unrevealing. He was transferred to the ICU for treatment of metabolic syndrome. He endorsed SI before his discharge from the medical unit and therefore was transferred to yesterday. On interview with this provider, patient states that the reason for his psychiatric admission is suicide ideation and severe depression. He reports severe depression on/off, mostly on for the past several years. He feels hopeless, helpless, and worthless. He lacks interest to do things and has low energy. His symptoms are usually well controlled while on medication. However, he relapsed on drinking alcohol 3 weeks ago and stopped taking his psychotropic medications. He was drinking 5 or more nips daily. Prior to his recent relapse, he was sober for 2 years. He admits that his drinking may have worsened his depressive symptoms. He states that he stopped taking his medications because I didn't care anymore. He currently experiencing severe anxiety and depression. Regarding question about suicide ideation, he states that he does not have a plan, but if I went to sleep, I don't care if don't wake up. He denies hypomania or kaveh episodes. He denies HI/AVH. He reports severe left-sided low back pain which started after he fell the day before he presented to [facility]. CT abdomen/pelvis revealed acute to subacute superior endplate compression fracture at L1. His goal for this hospitalization is that I want to feel better about myself, and to get back on his medications. Formulation/Clinical reasoning: Patient has chronic anxiety and depression symptoms which worsened in the past 3 weeks when he stopped taking his psychotropic medications and relapsed on alcohol. His symptoms are well controlled on medications. Will continue current treatment regimen and make adjustment as needed. If he fails to respond to treatment, ECT may be ideal since it was effective in the past. Referred to addiction medicine. Lidocaine patch ordered and PT referral made for back pain. 04/10: Patient continues to be severely anxious and depressed. He also continues to experience intermittent left-sided low back pain. No SI/HI/AVH. Continue current treatment regimen. Encourage groups and to engage in physical therapy. Patient may receive inpatient ECT if he does not improve. Verbalized understanding and agreed with the plan. 04/11: Continue tx ECT consult Encourage milieu Right foot/ankle xrays 04/12 Patient says that his mood is better but he remains very anxious. Discussed options and patient agrees to trying Seroquel p.r.n. after reviewing risks/side effects of antipsychotics. 04/14: The depression is somewhat less. Anxiety is high Reports anergy as well I will do what I need to to feel better. Reviewed in team with Dr. May and Dr. Jacob. Dr. May met with pt and ECT will begin on 04/21. Denies SI,HI,AH,VH, SIBS Reports an increase of sleep and intact appetite. Pt asks to return to a regular diet as he reports poor choices on diabetic regime. Also asks that he not receive a safety tray. Intermittent group attendance Over the weekend Clonidine ordered prn along with Seroquel prn and Lidocaine Patch for pain. No new medical/diagnostic results. Plan: Provigil trial. 04/15: Pt reports Provigil has helped this a.m. Pt agrees to ECT trial and will attend milieu groups and will agree to CSS post discharge when ECT is completed. Today, discussed antidepressant trials. Identifies Venlafaxine as most helpful by history. Discussed this, along with Cymbalta with some benefits for pain mgt. Pt would like to trial Cymbalta. Attending groups this afternoon. Plan: Cymbalta 20 mg daily 04/16: Team reports pt slept last evening. He received medical clearance for ECT today Tolerating Cymbalta, Provigil. Will begin Lexapro tapering to 15 mg this evening Not attending groups Rates anxiety/depressive sx 8 today. 04/17/25: Meet with patient in assigned room, report no issues with appetite or sleep. Report anxiety an 8/10 and depression a 7/10. He eats breakfast in room. Denies alcohol craving. Report he went to a group yesterday. Denies SI/SIB/HI/AVH Per nursing, meds compliant, slept for 7 hours, compliant with meds, no side effect. mostly isolated to self in room. Constricted affect.Continue to encourage group participation. 04/18/25: Pt denies SI,HI,AH,VH He is attending some groups He is visable today in the milieu. He has informed his he as a fracture in his back and is unsure of tx plan. called pt's general lithographic worker to clarify. This was diagnosed when pt was on medicine, having a abdominal diagnostic. On 04/01 abdominal films for pancreatitis were completed. Compression Fx found on L1. STR was suggested by PT when discharged with no further recs when transferred to . Nehemias Fuller of PT has been following pt on M5 with exercises, stretching and observation with ambulation. He will need OP PT upon DC. Pt is anxious, apprehensive regarding ECT, however believes this is the appropriate thing to do. Discussed Cymbalta titration to 30 mg and decrease of Escitalopram to 10 mg which he agrees with. Plan Admit to M5. CV 15 minutes check. -Add Seroquel 25 mg p.r.n. for anxiety Diagnostics as needed. Collateral contact. Continue remainder of regime. Encouraged full milieu. Discharge planning. Reason for continued inpatient stay Substantial Risk for: rapid decompensation Time Spent With Patient Time: Total time managing care of this patient today ____ minutes.
[2025-04-18 19:50] VITALS: BP 113/56; PULSE 80; RESP 16; TEMP 36.6; O2SAT 95
[2025-04-18 21:27] VITALS: BP 127/68
[2025-04-19 08:00] VITALS: BP 115/63; PULSE 77; RESP 16; TEMP 36.6; O2SAT 99
[2025-04-19 19:39] VITALS: BP 119/63; PULSE 82; RESP 16; TEMP 37.1; O2SAT 96
[2025-04-19 20:58] VITALS: BP 136/72
--- NOTE | 2025-04-19 22:30 | P.PNPSI_ITS ---
Subjective Subjective Date of Service: 04/19/25 Reason For Visit: recurrent major depression, alcohol use disorder Subjective Notes: Conditional Voluntary Healthcare Proxy: No Guardianship: No Medical Problems Affecting Mental Status: No Interim History: Medical record and nursing notes reviewed; case discussed during rounds with team/nursing staff, and met with patient for supportive therapy/psychoeducation, as well as medication management. Met with patient in group room A where patient spent time after breakfast watching TV. Reports anxiety 7, and depression is 6/10. Reported that he went to 1 group yesterday. Per nursing, patient slept for 7 hours, compliant with medications. Denies side effects but reports some hand tremors which be from medication or from chronic alcohol abuse. We will continue to monitor. No SI/SIB/HI/AVH. Medication Compliance: Yes Side effects from medications: Yes (Very mild hand tremor) Attending Groups: Intermittent Review of Systems Acute medical concerns: No Medical Review of Systems: unchanged Review of Systems Review of Systems No physical compliant. Yes all other systems are reviewed and are negative Mental Status Exam Mental Status Exam Narrative: A+O, isolative, depressed, anxious. No SI/SIB/HI/AVH. Fair insight and judgment. Diagnostics Vital Signs (24Hr): Vital Signs - 24 hr 04/19/25 08:00 04/19/25 19:39 04/19/25 20:58 Temperature 97.9 F 98.7 F Pulse Rate 77 82 Respiratory Rate 16 16 Blood Pressure 115/63 119/63 136/72 Pulse Oximetry 99 96 Oxygen Delivery Method Room Air Room Air BMI result Body Mass Index 36.4 Imaging Radiology Impressions: ITS Impressions Ankle X-Ray 04/11/25 13:50 IMPRESSION: Status post tibiotalar arthroplasty. Degenerative changes as described. Electronically signed by: Jony Olivas MD 04/11/2025 01:59 PM EST RP Foot X-Ray 04/11/25 13:51 IMPRESSION: Status post tibiotalar arthroplasty. Degenerative changes as described. Electronically signed by: Jony Olivas MD 04/11/2025 01:59 PM EST RP Medications Medications Current Medications Acetaminophen (Acetaminophen 325 Mg Tablet) 650 mg PO Q6H PRN PRN Reason: Headache/Pain, Scale 1-10 Last Admin: 04/11/25 20:40 Dose: 650 mg Al Hydroxide/Mg Hydroxide (Magnesium Hydrox/Alum Hydrox 30 Ml Oral.Susp) 30 ml PO Q6H PRN PRN Reason: Heartburn/Nausea Amlodipine Besylate (Amlodipine Besylate 10 Mg Tablet) 10 mg PO DAILY [facility]; Protocol Last Admin: 04/19/25 08:42 Dose: 10 mg Atorvastatin Calcium (Atorvastatin Calcium 80 Mg Tablet) 80 mg PO DAILY [facility] Last Admin: 04/19/25 08:43 Dose: 80 mg Clonidine HCl (Clonidine Hcl 0.1 Mg Tablet) 0.1 mg PO Q4H PRN; Protocol PRN Reason: severe anxiety Last Admin: 04/19/25 20:58 Dose: 0.1 mg Duloxetine HCl (Duloxetine Hcl 30 Mg Capsule.Dr) 30 mg PO DAILY [facility] Last Admin: 04/19/25 08:42 Dose: 30 mg Ezetimibe (Ezetimibe 10 Mg Tablet) 10 mg PO DAILY [facility] Last Admin: 04/19/25 08:42 Dose: 10 mg Escitalopram Oxalate (Escitalopram Oxalate 10 Mg Tablet) 10 mg PO BEDTIME [facility] Last Admin: 04/19/25 20:59 Dose: 10 mg Fenofibrate (Fenofibrate 160 Mg Tablet) 160 mg PO DAILY [facility] Last Admin: 04/19/25 08:43 Dose: 160 mg Folic Acid (Folic Acid 1 Mg Tablet) 1 mg PO DAILY [facility] Last Admin: 04/19/25 08:43 Dose: 1 mg Hydroxyzine HCl (Hydroxyzine Hcl 50 Mg Tablet) 50 mg PO Q6H PRN PRN Reason: mild anxiety Last Admin: 04/15/25 17:35 Dose: 50 mg Lidocaine (Lidocaine 4 % Patch Adh..Patch) 0.5 patch TRANSDERMA DAILY PRN; Protocol PRN Reason: back pain Lurasidone HCl (Lurasidone Hcl 80 Mg Tablet) 80 mg PO 1700 [facility] Last Admin: 04/19/25 17:06 Dose: 80 mg Magnesium Hydroxide (Milk Of Magnesia 30 Ml Oral.Susp) 30 ml PO DAILY PRN PRN Reason: Constipation Modafinil (Modafinil 100 Mg Tablet) 100 mg PO DAILY [facility] Last Admin: 04/19/25 08:42 Dose: 100 mg Multivitamins/Vitamin C (Multivitamin Tablet) 1 tab PO DAILY [facility] Last Admin: 04/19/25 08:42 Dose: 1 tab Naltrexone HCl (Naltrexone Hcl 50 Mg Tablet) 50 mg PO DAILY [facility] Last Admin: 04/19/25 08:43 Dose: 50 mg Nicotine Polacrilex (Nicotine Polacrilex 2 Mg Gum) 4 mg BUCCAL Q2H PRN PRN Reason: Nicotine Cravings Omeprazole (Omeprazole 20 Mg Capsule.Dr) 20 mg PO BEDTIME [facility] Last Admin: 04/19/25 20:59 Dose: 20 mg Quetiapine Fumarate (Quetiapine Fumarate 25 Mg Tablet) 25 mg PO TID PRN PRN Reason: breakthrough anxiety Last Admin: 04/19/25 20:58 Dose: 25 mg Thiamine HCl (Thiamine Hcl 100 Mg Tablet) 100 mg PO DAILY [facility] Last Admin: 04/19/25 08:43 Dose: 100 mg Topiramate (Topiramate 25 Mg Tablet) 50 mg PO BEDTIME [facility] Last Admin: 04/19/25 20:59 Dose: 50 mg Trazodone HCl (Trazodone Hcl 100 Mg Tablet) 100 mg PO BEDTIME [facility] Last Admin: 04/19/25 20:58 Dose: 100 mg Trazodone HCl (Trazodone Hcl 50 Mg Tablet) 50 mg PO BEDTIME PRN PRN Reason: Insomnia Last Admin: 04/19/25 20:58 Dose: 50 mg Allergies Allergies Allergy/AdvReac Type Severity Reaction Status Date / Time No Known Allergies Allergy Verified 04/01/25 12:28 Assessment & Plan Assessment & Plan (1) Major depressive disorder, recurrent severe without psychotic features: Status: Inactive Code(s): F33.2 - Major depressive disorder, recurrent severe without psychotic features (2) Anxiety: Status: Acute Code(s): F41.9 - Anxiety disorder, unspecified (3) Suicidal ideation: Status: Acute Code(s): R45.851 - Suicidal ideations (4) Alcohol use disorder: Status: Inactive Code(s): F10.90 - Alcohol use, unspecified, uncomplicated (5) Low back pain: Status: Acute Code(s): M54.50 - Low back pain, unspecified Plan 64-year-old male with medical history of hypertension, type 2 diabetes, hyperlipidemia, compression fracture of L1, and psychiatric history of major depressive disorder, anxiety, and suicidal ideation, presented to [facility] on 04/01/2025 for worsening depression, SI, and a fall. Imaging were unrevealing. He was transferred to the ICU for treatment of metabolic syndrome. He endorsed SI before his discharge from the medical unit and therefore was transferred to yesterday. On interview with this provider, patient states that the reason for his psychiatric admission is suicide ideation and severe depression. He reports severe depression on/off, mostly on for the past several years. He feels hopeless, helpless, and worthless. He lacks interest to do things and has low energy. His symptoms are usually well controlled while on medication. However, he relapsed on drinking alcohol 3 weeks ago and stopped taking his psychotropic medications. He was drinking 5 or more nips daily. Prior to his recent relapse, he was sober for 2 years. He admits that his drinking may have worsened his depressive symptoms. He states that he stopped taking his medications because I didn't care anymore. He currently experiencing severe anxiety and depression. Regarding question about suicide ideation, he states that he does not have a plan, but if I went to sleep, I don't care if don't wake up. He denies hypomania or kaveh episodes. He denies HI/AVH. He reports severe left-sided low back pain which started after he fell the day before he presented to [facility]. CT abdomen/pelvis revealed acute to subacute superior e ndplate compression fracture at L1. His goal for this hospitalization is that I want to feel better about myself, and to get back on his medications. Formulation/Clinical reasoning: Patient has chronic anxiety and depression symptoms which worsened in the past 3 weeks when he stopped taking his psychotropic medications and relapsed on alcohol. His symptoms are well controlled on medications. Will continue current treatment regimen and make adjustment as needed. If he fails to respond to treatment, ECT may be ideal since it was effective in the past. Referred to addiction medicine. Lidocaine patch ordered and PT referral made for back pain. 04/10: Patient continues to be severely anxious and depressed. He also continues to experience intermittent left-sided low back pain. No SI/HI/AVH. Continue current treatment regimen. Encourage groups and to engage in physical therapy. Patient may receive inpatient ECT if he does not improve. Verbalized understanding and agreed with the plan. 04/11: Continue tx ECT consult Encourage milieu Right foot/ankle xrays 04/12 Patient says that his mood is better but he remains very anxious. Discussed options and patient agrees to trying Seroquel p.r.n. after reviewing risks/side effects of antipsychotics. 04/14: The depression is somewhat less. Anxiety is high Reports anergy as well I will do what I need to to feel better. Reviewed in team with Dr. May and Dr. Jacob. Dr. May met with pt and ECT will begin on 04/21. Denies SI,HI,AH,VH, SIBS Reports an increase of sleep and intact appetite. Pt asks to return to a regular diet as he reports poor choices on diabetic regime. Also asks that he not receive a safety tray. Intermittent group attendance Over the weekend Clonidine ordered prn along with Seroquel prn and Lidocaine Patch for pain. No new medical/diagnostic results. Plan: Provigil trial. 04/15: Pt reports Provigil has helped this a.m. Pt agrees to ECT trial and will attend milieu groups and will agree to CSS post discharge when ECT is completed. Today, discussed antidepressant trials. Identifies Venlafaxine as most helpful by history. Discussed this, along with Cymbalta with some benefits for pain mgt. Pt would like to trial Cymbalta. Attending groups this afternoon. Plan: Cymbalta 20 mg daily 04/16: Team reports pt slept last evening. He received medical clearance for ECT today Tolerating Cymbalta, Provigil. Will begin Lexapro tapering to 15 mg this evening Not attending groups Rates anxiety/depressive sx 8 today. 04/17/25: Meet with patient in assigned room, report no issues with appetite or sleep. Report anxiety an 8/10 and depression a 7/10. He eats breakfast in room. Denies alcohol craving. Report he went to a group yesterday. Denies SI/SIB/HI/AVH Per nursing, meds compliant, slept for 7 hours, compliant with meds, no side effect. mostly isolated to self in room. Constricted affect.Continue to encourage group participation. 04/18/25: Pt denies SI,HI,AH,VH He is attending some groups He is visable today in the milieu. He has informed his he as a fracture in his back and is unsure of tx plan. called pt's social worker health services to clarify. This was diagnosed when pt was on medicine, having a abdominal diagnostic. On 04/01 abdominal films for pancreatitis were completed. Compression Fx found on L1. STR was suggested by PT when discharged with no further recs when transferred to M5. Nehemias Fuller of PT has been following pt on M5 with exercises, stretching and observation with ambulation. He will need OP PT upon DC. Pt is anxious, apprehensive regarding ECT, however believes this is the appropriate thing to do. Discussed Cymbalta titration to 30 mg and decrease of Escitalopram to 10 mg which he agrees with. 04/19/25: Met with patient in group room A where patient spent time after breakfast watching TV. Reports anxiety 7, and depression is 6/10. Reported that he went to 1 group yesterday. Per nursing, patient slept for 7 hours, compliant with medications. Denies side effects but reports some hand tremors which be from medication or from chronic alcohol abuse. We will continue to mon itor. No SI/SIB/HI/AVH. Plan Admit to . CV 15 minutes check. -Add Seroquel 25 mg p.r.n. for anxiety Diagnostics as needed. Collateral contact. Continue remainder of regime. Encouraged full milieu. Discharge planning. Patient educated on: diagnosis, medication risk/benefits, substance abuse and therapeutic strategies Informed Consent: understands and further education needed Reason for continued inpatient stay Substantial Risk for: med/psych decompensation Time Spent With Patient Time: Total time managing care of this patient today ____ minutes.
[2025-04-20 07:57] VITALS: BP 123/68; PULSE 71; RESP 16; TEMP 36.5; O2SAT 98
[2025-04-20 19:58] VITALS: BP 116/70; PULSE 75; RESP 15; TEMP 36.6; O2SAT 95
--- NOTE | 2025-04-20 21:40 | HO.PSYCHPN ---
Subjective Subjective Date of Service: 04/20/25 Reason For Visit: recurrent major depression, alcohol use disorder Subjective Notes: Conditional Voluntary Healthcare Proxy: No Guardianship: No Medical Problems Affecting Mental Status: No Interim History: Medical record and nursing notes reviewed; case discussed during rounds with team/nursing staff, and met with patient for supportive therapy/psychoeducation, as well as medication management. Meet with patient in room where he is eating lunch. Report that he does not want to eat and be around with people. Denies sleeping or eating appetite uses. Continue report moderate to severe anxiety of a 10 and depression a 610. Denies SI/SIB/HI/AVH. Does not have alcohol craving at this moment. Flat/constricted affect. He is looking forward to having ECT tomorrow which he was told by his primary attending. Can observed him sometimes in dinning area but keep to self, not talk to anyone unless approach. Able to make needs known. Per nursing, patient slept for 8 hours, denies side effects from medications. Report to nursing staff with same anixety and depression level. Consistent with report. Continue with current plan. Nursing staff to prapare patient for ECT per protocol. Medication Compliance: Yes Side effects from medications: No Attending Groups: Intermittent Review of Systems Acute medical concerns: No Medical Review of Systems: unchanged Review of Systems Review of Systems No physical compliant. Yes all other systems are reviewed and are negative Diagnostics Vital Signs (24Hr): Vital Signs - 24 hr 04/20/25 07:57 04/20/25 19:58 Temperature 97.7 F 97.8 F Pulse Rate 71 75 Respiratory Rate 16 15 Blood Pressure 123/68 116/70 Pulse Oximetry 98 95 Oxygen Delivery Method Room Air BMI result Body Mass Index 36.4 Imaging Radiology Impressions: ITS Impressions Ankle X-Ray 04/11/25 13:50 IMPRESSION: Status post tibiotalar arthroplasty. Degenerative changes as described. Electronically signed by: Jony Olivas MD 04/11/2025 01:59 PM EST RP Foot X-Ray 04/11/25 13:51 IMPRESSION: Status post tibiotalar arthroplasty. Degenerative changes as described. Electronically signed by: Jony Olivas MD 04/11/2025 01:59 PM EST RP Medications Medications Current Medications Acetaminophen (Acetaminophen 325 Mg Tablet) 650 mg PO Q6H PRN PRN Reason: Headache/Pain, Scale 1-10 Last Admin: 04/11/25 20:40 Dose: 650 mg Al Hydroxide/Mg Hydroxide (Magnesium Hydrox/Alum Hydrox 30 Ml Oral.Susp) 30 ml PO Q6H PRN PRN Reason: Heartburn/Nausea Amlodipine Besylate (Amlodipine Besylate 10 Mg Tablet) 10 mg PO DAILY [facility]; Protocol Last Admin: 04/20/25 08:34 Dose: 10 mg Atorvastatin Calcium (Atorvastatin Calcium 80 Mg Tablet) 80 mg PO DAILY [facility] Last Admin: 04/20/25 08:35 Dose: 80 mg Clonidine HCl (Clonidine Hcl 0.1 Mg Tablet) 0.1 mg PO Q4H PRN; Protocol PRN Reason: severe anxiety Last Admin: 04/20/25 20:44 Dose: 0.1 mg Duloxetine HCl (Duloxetine Hcl 30 Mg Capsule.Dr) 30 mg PO DAILY [facility] Last Admin: 04/20/25 08:35 Dose: 30 mg Ezetimibe (Ezetimibe 10 Mg Tablet) 10 mg PO DAILY [facility] Last Admin: 04/20/25 08:34 Dose: 10 mg Escitalopram Oxalate (Escitalopram Oxalate 10 Mg Tablet) 10 mg PO BEDTIME [facility] Last Admin: 04/20/25 20:41 Dose: 10 mg Fenofibrate (Fenofibrate 160 Mg Tablet) 160 mg PO DAILY [facility] Last Admin: 04/20/25 08:35 Dose: 160 mg Folic Acid (Folic Acid 1 Mg Tablet) 1 mg PO DAILY [facility] Last Admin: 04/20/25 08:35 Dose: 1 mg Hydroxyzine HCl (Hydroxyzine Hcl 50 Mg Tablet) 50 mg PO Q6H PRN PRN Reason: mild anxiety Last Admin: 04/15/25 17:35 Dose: 50 mg Lidocaine (Lidocaine 4 % Patch Adh..Patch) 0.5 patch TRANSDERMA DAILY PRN; Protocol PRN Reason: back pain Lurasidone HCl (Lurasidone Hcl 80 Mg Tablet) 80 mg PO 1700 [facility] Last Admin: 04/20/25 16:58 Dose: 80 mg Magnesium Hydroxide (Milk Of Magnesia 30 Ml Oral.Susp) 30 ml PO DAILY PRN PRN Reason: Constipation Modafinil (Modafinil 100 Mg Tablet) 100 mg PO DAILY [facility] Last Admin: 04/20/25 08:35 Dose: 100 mg Multivitamins/Vitamin C (Multivitamin Tablet) 1 tab PO DAILY [facility] Last Admin: 04/20/25 08:34 Dose: 1 tab Naltrexone HCl (Naltrexone Hcl 50 Mg Tablet) 50 mg PO DAILY [facility] Last Admin: 04/20/25 08:35 Dose: 50 mg Nicotine Polacrilex (Nicotine Polacrilex 2 Mg Gum) 4 mg BUCCAL Q2H PRN PRN Reason: Nicotine Cravings Omeprazole (Omeprazole 20 Mg Capsule.Dr) 20 mg PO BEDTIME [facility] Last Admin: 04/20/25 20:41 Dose: 20 mg Quetiapine Fumarate (Quetiapine Fumarate 25 Mg Tablet) 25 mg PO TID PRN PRN Reason: breakthrough anxiety Last Admin: 04/20/25 20:41 Dose: 25 mg Thiamine HCl (Thiamine Hcl 100 Mg Tablet) 100 mg PO DAILY [facility] Last Admin: 04/20/25 08:35 Dose: 100 mg Topiramate (Topiramate 25 Mg Tablet) 50 mg PO BEDTIME [facility] Last Admin: 04/20/25 20:41 Dose: 50 mg Trazodone HCl (Trazodone Hcl 100 Mg Tablet) 100 mg PO BEDTIME [facility] Last Admin: 04/20/25 20:41 Dose: 100 mg Trazodone HCl (Trazodone Hcl 50 Mg Tablet) 50 mg PO BEDTIME PRN PRN Reason: Insomnia Last Admin: 04/19/25 20:58 Dose: 50 mg Allergies Allergies Allergy/AdvReac Type Severity Reaction Status Date / Time No Known Allergies Allergy Verified 04/01/25 12:28 Assessment & Plan Assessment & Plan (1) Major depressive disorder, recurrent severe without psychotic features: Status: Acute Code(s): F33.2 - Major depressive disorder, recurrent severe without psychotic features (2) Hypertriglyceridemia: Status: Acute Code(s): E78.1 - Pure hyperglyceridemia Plan PLAN: 64-year-old male with medical history of hypertension, type 2 diabetes, hyperlipidemia, compression fracture of L1, and psychiatric history of major depressive disorder, anxiety, and suicidal ideation, presented to [facility] on 04/01/2025 for worsening depression, SI, and a fall. Imaging were unrevealing. He was transferred to the ICU for treatment of metabolic syndrome. He endorsed SI before his discharge from the medical unit and therefore was transferred to yesterday. On interview with this provider, patient states that the reason for his psychiatric admission is suicide ideation and severe depression. He reports severe depression on/off, mostly on for the past several years. He feels hopeless, helpless, and worthless. He lacks interest to do things and has low energy. His symptoms are usually well controlled while on medication. However, he relapsed on drinking alcohol 3 weeks ago and stopped taking his psychotropic medications. He was drinking 5 or more nips daily. Prior to his recent relapse, he was sober for 2 years. He admits that his drinking may have worsened his depressive symptoms. He states that he stopped taking his medications because I didn't care anymore. He currently experiencing severe anxiety and depression. Regarding question about suicide ideation, he states that he does not have a plan, but if I went to sleep, I don't care if don't wake up. He denies hypomania or kaveh episodes. He denies HI/AVH. He reports severe left-sided low back pain which started after he fell the day before he presented to [facility]. CT abdomen/pelvis revealed acute to subacute superior endplate compression fracture at L1. His goal for this hospitalization is that I want to feel better about myself, and to get back on his medications. Formulation/Clinical reasoning: Patient has chronic anxiety and depression symptoms which worsened in the past 3 weeks when he stopped taking his psychotropic medications and relapsed on alcohol. His symptoms are well controlled on medications. Will continue current treatment regimen and make adjustment as needed. If he fails to respond to treatment, ECT may be ideal since it was effective in the past. Referred to addiction medicine. Lidocaine patch ordered and PT referral made for back pain. 04/10: Patient continues to be severely anxious and depressed. He also continues to experience intermittent left-sided low back pain. No SI/HI/AVH. Continue current treatment regimen. Encourage groups and to engage in physical therapy. Patient may receive inpatient ECT if he does not improve. Verbalized understanding and agreed with the plan. 04/11: Continue tx ECT consult Encourage milieu Right foot/ankle xrays 04/12 Patient says that his mood is better but he remains very anxious. Discussed options and patient agrees to trying Seroquel p.r.n. after reviewing risks/side effects of antipsychotics. 04/14: The depression is somewhat less. Anxiety is high Reports anergy as well I will do what I need to to feel better. Reviewed in team with Dr. May and Dr. Jacob. Dr. May met with pt and ECT will begin on 04/21. Denies SI,HI,AH,VH, SIBS Reports an increase of sleep and intact appetite. Pt asks to return to a regular diet as he reports poor choices on diabetic regime. Also asks that he not receive a safety tray. Intermittent group attendance Over the weekend Clonidine ordered prn along with Seroquel prn and Lidocaine Patch for pain. No new medical/diagnostic results. Plan: Provigil trial. 04/15: Pt reports Provigil has helped this a.m. Pt agrees to ECT trial and will attend milieu groups and will agree to CSS post discharge when ECT is completed. Today, discussed antidepressant trials. Identifies Venlafaxine as most helpful by history. Discussed this, along with Cymbalta with some benefits for pain mgt. Pt would like to trial Cymbalta. Attending groups this afternoon. Plan: Cymbalta 20 mg daily 04/16: Team reports pt slept last evening. He received medical clearance for ECT today Tolerating Cymbalta, Provigil. Will begin Lexapro tapering to 15 mg this evening Not attending groups Rates anxiety/depressive sx 8 today. 04/17/25: Meet with patient in assigned room, report no issues with appetite or sleep. Report anxiety an 8/10 and depression a 7/10. He eats breakfast in room. Denies alcohol craving. Report he went to a group yesterday. Denies SI/SIB/HI/AVH Per nursing, meds compliant, slept for 7 hours, compliant with meds, no side effect. mostly isolated to self in room. Constricted affect.Continue to encourage group participation. 04/18/25: Pt denies SI,HI,AH,VH He is attending some groups He is visable today in the milieu. He has informed his he as a fracture in his back and is unsure of tx plan. called pt's transition social worker to clarify. This was diagnosed when pt was on medicine, having a abdominal diagnostic. On 04/01 abdominal films for pancreatitis were completed. Compression Fx found on L1. STR was suggested by PT when discharged with no further recs when transferred to . Nehemias Fuller of PT has been following pt on M5 with exercises, stretching and observation with ambulation. He will need OP PT upon DC. Pt is anxious, apprehensive regarding ECT, however believes this is the appropriate thing to do. Discussed Cymbalta titration to 30 mg and decrease of Escitalopram to 10 mg which he agrees with. 04/19/25: Met with patient in group room A where patient spent time after breakfast watching TV. Reports anxiety 7, and depression is 6/10. Reported that he went to 1 group yesterday. Per nursing, patient slept for 7 hours, compliant with medications. Denies side effects but reports some hand tremors which be from medication or from chronic alcohol abuse. We will continue to monitor. No SI/SIB/HI/AVH. Per ECT consult provider note: Patient has not had ongoing stability from depression for an extended period of time. 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 He did respond to a course of ECT in December and did speak with the patient at the only way that I would recommend another course of ECT at this time would be if the patient will willing to do aggressive treatment including possibility if residential sober home and show a commitment to sobriety otherwise his default appears to be to going back to drinking which also has involved not taking responsibility lack of honesty at times in what he is doing in unless he could commit to this that it would be very hard to achieve any stability. Patient appeared to understand this and patient wish strongly to go forward with ECT as he felt it had been quite helpful and agreed with the above provisions also discussed with the patient the ongoing in potentially severe medical consequences of his chronic alcohol use 04/20/25: Meet with patient in room where he is eating lunch. Report that he does not want to eat and be around with people. Denies sleeping or eating appetite uses. Continue report moderate to severe anxiety of a 7/10 and depression a 6/10. Denies SI/SIB/HI/AVH. Does not have alcohol craving at this moment. Flat/constricted affect. He is looking forward to having ECT tomorrow which he was told by his primary attending. Can observed him sometimes in dinning area but keep to self, not talk to anyone unless approach. Able to make needs known. Per nursing, patient slept for 8 hours, denies side effects from medications. Report to nursing staff with same anixety and depression level. Consistent with report. Continue with current plan. Nursing staff to prapare patient for ECT per protocol. Plan Admit to M5. CV 15 minutes check. -Add Seroquel 25 mg p.r.n. for anxiety Diagnostics as needed. Collateral contact. Continue remainder of regime. Encouraged full milieu. Discharge planning. Patient educated on: diagnosis, medication risk/benefits, substance abuse and therapeutic strategies Informed Consent: understands and further education needed Reason for continued inpatient stay Substantial Risk for: med/psych decompensation Time Spent With Patient Time: Total time managing care of this patient today ____ minutes.
[2025-04-21] VITALS (12 sets, daily range): BP systolic 108–161; BP diastolic 60–101; PULSE 74–90; RESP 12–22; TEMP 2.4–37.2; O2SAT 94–98; BMI 36.4
--- NOTE | 2025-04-21 | ECG_ITS ---
Test Reason : f/u ekg changes Blood Pressure : */* mmHG Vent. Rate : 76 BPM Atrial Rate : 76 BPM P-R Int : 178 ms QRS Dur : 98 ms QT Int : 380 ms P-R-T Axes : 73 75 78 degrees QTcB Int : 427 ms Normal sinus rhythm Normal ECG When compared with ECG of 16-Apr-2025 15:46, No significant change was found Referred By: Hemant May Electronically Signed By: REJI SCHNEIDER
[2025-04-21 09:21] LABS: Ammonia 20 umol/L (13-55)
[2025-04-21 09:27] LABS: Alanine Aminotransferase 31 U/L (0-40); Albumin Level 4.1 g/dL (3.5-5.0); Alkaline Phosphatase 77 U/L (39-117); Aspartate Amino Transferase 34 U/L (5-37); Cholesterol 158 mg/dL (<200); HDL Cholesterol 28 mg/dL (>40); Total Protein 6.7 g/dL (6.5-8.0); Triglycerides 380 mg/dL (<150)
--- NOTE | 2025-04-21 13:17 | HO.ANESPROP2 ---
HPI - Anesthesia Eval Consult details Narrative: ect PMFSH Active Problems Active Problems: All Active Problems Alcoholic liver disease (Acute) Major depressive disorder, recurrent severe without psychotic features (Acute) Hypertriglyceridemia (Acute) Low back pain (Acute) Anxiety (Acute) Suicidal ideation (Acute) Fatigue (Acute) Past Medical History Medical History Alcoholic liver disease Major depressive disorder, recurrent severe without psychotic features Hypertriglyceridemia Fracture of nasal bone Alcohol use disorder Fatigue Family History Family history of problems with anesthesia: No Surgical History History of Problems with Anesthesia: No Social History Social History Household Members: Spouse Housing: House Do you presently have visiting nurse or other home services: No Alcohol intake: current Alcohol intake frequency: 3 or more drinks per day Alcohol type: hard liquor Comment: PT Consult ordered Patient Tobacco Use Status: Never used Tobacco Currently Displaying Signs/Symptoms of Drug Intoxication Withdrawal: No Have you been hit, kicked, punched, or otherwise hurt by someone within the past year? If so, by whom?: No Do you feel safe in your current relationship?: Yes Is there a partner from a previous relationship who is making you feel unsafe now?: No Are you made to feel afraid or neglected: No Spiritual Healthcare Practices: Religious Are you DNR?: No Advance Directives: Yes Advance Directives Information Provided: No Advance Directives on File: Yes Advance Directives Date on File: 04/02/25 Do you have thoughts of harming others: None Do you have a plan to hurt others: No Plan Recently lost weight without trying: No Eating poorly because of decreased appetite: No Nutrition Risks: No Nutritional Risk Poor oral hygiene: No service: No Sexual orientation: Straight/Heterosexual Meds Allergies Allergy/AdvReac Type Severity Reaction Status Date / Time No Known Allergies Allergy Verified 04/01/25 12:28 Active Medications: Current Medications Acetaminophen (Acetaminophen 325 Mg Tablet) 650 mg PO Q6H PRN PRN Reason: Headache/Pain, Scale 1-10 Last Admin: 04/11/25 20:40 Dose: 650 mg Al Hydroxide/Mg Hydroxide (Magnesium Hydrox/Alum Hydrox 30 Ml Oral.Susp) 30 ml PO Q6H PRN PRN Reason: Heartburn/Nausea Amlodipine Besylate (Amlodipine Besylate 10 Mg Tablet) 10 mg PO DAILY [facility]; Protocol Last Admin: 04/20/25 08:34 Dose: 10 mg Atorvastatin Calcium (Atorvastatin Calcium 80 Mg Tablet) 80 mg PO DAILY [facility] Last Admin: 04/20/25 08:35 Dose: 80 mg Clonidine HCl (Clonidine Hcl 0.1 Mg Tablet) 0.1 mg PO Q4H PRN; Protocol PRN Reason: severe anxiety Last Admin: 04/20/25 20:44 Dose: 0.1 mg Duloxetine HCl (Duloxetine Hcl 30 Mg Capsule.Dr) 30 mg PO DAILY [facility] Last Admin: 04/20/25 08:35 Dose: 30 mg Ezetimibe (Ezetimibe 10 Mg Tablet) 10 mg PO DAILY [facility] Last Admin: 04/20/25 08:34 Dose: 10 mg Escitalopram Oxalate (Escitalopram Oxalate 10 Mg Tablet) 10 mg PO BEDTIME [facility] Last Admin: 04/20/25 20:41 Dose: 10 mg Fenofibrate (Fenofibrate 160 Mg Tablet) 160 mg PO DAILY [facility] Last Admin: 04/20/25 08:35 Dose: 160 mg Folic Acid (Folic Acid 1 Mg Tablet) 1 mg PO DAILY [facility] Last Admin: 04/20/25 08:35 Dose: 1 mg Hydroxyzine HCl (Hydroxyzine Hcl 50 Mg Tablet) 50 mg PO Q6H PRN PRN Reason: mild anxiety Last Admin: 04/15/25 17:35 Dose: 50 mg Lidocaine (Lidocaine 4 % Patch Adh..Patch) 0.5 patch TRANSDERMA DAILY PRN; Protocol PRN Reason: back pain Lurasidone HCl (Lurasidone Hcl 80 Mg Tablet) 80 mg PO 1700 [facility] Last Admin: 04/20/25 16:58 Dose: 80 mg Magnesium Hydroxide (Milk Of Magnesia 30 Ml Oral.Susp) 30 ml PO DAILY PRN PRN Reason: Constipation Modafinil (Modafinil 100 Mg Tablet) 100 mg PO DAILY [facility] Last Admin: 04/20/25 08:35 Dose: 100 mg Multivitamins/Vitamin C (Multivitamin Tablet) 1 tab PO DAILY [facility] Last Admin: 04/20/25 08:34 Dose: 1 tab Naltrexone HCl (Naltrexone Hcl 50 Mg Tablet) 50 mg PO DAILY [facility] Last Admin: 04/20/25 08:35 Dose: 50 mg Nicotine Polacrilex (Nicotine Polacrilex 2 Mg Gum) 4 mg BUCCAL Q2H PRN PRN Reason: Nicotine Cravings Omeprazole (Omeprazole 20 Mg Capsule.Dr) 20 mg PO BEDTIME [facility] Last Admin: 04/20/25 20:41 Dose: 20 mg Quetiapine Fumarate (Quetiapine Fumarate 25 Mg Tablet) 25 mg PO TID PRN PRN Reason: breakthrough anxiety Last Admin: 04/20/25 20:41 Dose: 25 mg Thiamine HCl (Thiamine Hcl 100 Mg Tablet) 100 mg PO DAILY [facility] Last Admin: 04/20/25 08:35 Dose: 100 mg Topiramate (Topiramate 25 Mg Tablet) 50 mg PO BEDTIME [facility] Last Admin: 04/20/25 20:41 Dose: 50 mg Trazodone HCl (Trazodone Hcl 100 Mg Tablet) 100 mg PO BEDTIME [facility] Last Admin: 04/20/25 20:41 Dose: 100 mg Trazodone HCl (Trazodone Hcl 50 Mg Tablet) 50 mg PO BEDTIME PRN PRN Reason: Insomnia Last Admin: 04/19/25 20:58 Dose: 50 mg Home Medications ?Medication ?Instructions ?Recorded ?Confirmed ?Last Taken ?Type ezetimibe 10 mg tablet (Zetia) 10 mg PO DAILY 12/19/24 04/08/25 03/23/25 History omega-3 acid ethyl esters 1 gram 2 cap PO BID 12/19/24 04/08/25 03/23/25 History capsule rosuvastatin 20 mg tablet 20 mg PO DAILY 12/19/24 04/08/25 03/23/25 History amlodipine 10 mg tablet 10 mg PO DAILY 01/31/25 04/08/25 03/23/25 History fenofibrate 160 mg tablet 160 mg PO DAILY 01/31/25 04/08/25 03/23/25 History zfhqofrc-nl-bdrhq 300 mcg-K 60 1 tab PO DAILY 01/31/25 04/08/25 03/23/25 History mcg-lycop 600 mcg-lutein 300 mcg tablet (Centrum Silver Men) topiramate 50 mg tablet 50 mg PO BEDTIME 01/31/25 04/08/25 03/23/25 History trazodone 100 mg tablet 100 mg PO BEDTIME insomnia 04/02/25 04/08/25 03/23/25 History Exam Height,Weight and Vital Signs: Height 5 ft 9 in Weight 111.8 kg Last Vital Signs Temp 97.9 F 04/21/25 13:12 Pulse 77 04/21/25 13:12 Resp 20 04/21/25 13:12 BP 125/75 04/21/25 13:12 Pulse Ox 95 04/21/25 13:12 O2 Del Method Room Air 04/21/25 13:12 Pertinent Lab Results Pertinent Lab Results: Laboratory Tests 04/10/25 04/21/25 07:56 09:08 Estimat Average Glucose 111 Hemoglobin A1c % 5.5 Magnesium 1.7 Total Bilirubin 0.5 Direct Bilirubin 0.2 AST 34 ALT 31 Alkaline Phosphatase 77 Ammonia 20 Total Protein 6.7 Albumin 4.1 Triglycerides 1009 H 380 H Cholesterol 253 H 158 LDL Cholesterol, Calc TNP 54 HDL Cholesterol 27 L 28 L Vitamin B12 504 Folate 14.7 TSH 4.62 H Free T4 0.83 Airway Mallampati Class: III TM Dist: >3cm Neck ROM: Limited Heart: rrr Lungs: cta Assessment and Plan Assessment Anesthesia Assessment: Anesthesia Plan Discussed and Chart Reviewed Final Anesthetic Review Family History of Problems with Anesthesia: No History of Problems with Anesthesia: No NPO: Yes ASA Class: III Final Preanesthetic Review: No Changes in Pt Med Stat, Meds/Allgs Chart Reviewed, Consent Obtained/Reviewed and Anes Risks/Benef Reviewed Patient Risk: Intermediate Procedure Risk: Low Anesthetic Plan Anesthetic Plan: GA and Agree w/ Assess. and Plan Disposition: Standard PACU
--- NOTE | 2025-04-21 13:37 | MHC.SHP ---
Pre-Procedural Eval Section A - 24 Hr Update-Section A only Date of Service: 04/21/25 Changes since office visit: Yes Patient answered all questions; No Cold of Flu in the past 2 weeks, No New Medical Problems and No Changes in Medication The patient has been examined within 24 hours of the surgical procedure. The History & Physical has been completed within 30 days and I have reviewed it.: Yes Section B - Complete if H&P > 30 days Chief Complaint: recurrent major depression, alcohol use disorder Allergies: Allergies Allergy/AdvReac Type Severity Reaction Status Date / Time No Known Allergies Allergy Verified 04/01/25 12:28 Plan I have reviewed the history and physical and performed a pertinent physical examination on my patient. No changes have occurred unless specified. Time Spent With Patient Time: Total time managing care of this patient today ____ minutes.
--- NOTE | 2025-04-21 13:55 | HO.ECTPROC ---
ECT Procedure Note Diagnosis/Treatment Date of Service: 04/21/25 Diagnosis: Major Depressive Disorder Current Treatment Number: 1 Treatment: Series Interval Clinical Notes: Pt quite depressed withdrawm. Consent obtained . Pt tx rul lma 4 used no adverse effects noted Time: Total time managing care of this patient today _30___ minutes. ECT Settings Device: THYMATRON DGx Electrode Placement: Right Unilateral Program/Pulse Width: 0.50 Energy Percent: 100 Seizure Duration By EEG (in seconds): 50 Medications Administration General Anesthetic: Etomidate Muscle Relaxant: Succinylcholine (180) Ancillary Medications Cardiovascular Medications: Glycopyrrolate (0.2 pre tx) Airway Management Airway Management: LMA (4) Treatment Recommendations No Changes Recommended: No change Notes: make sure to bite block around the lma Pt Tolerated Procedure w/o Issue: Yes
--- NOTE | 2025-04-21 23:32 | P.PNPSI_ITS ---
Subjective Subjective Date of Service: 04/21/25 Reason For Visit: recurrent major depression, alcohol use disorder Subjective Notes: Conditional Voluntary Healthcare Proxy: No Guardianship: No Medical Problems Affecting Mental Status: No Interim History: Medical record and nursing notes reviewed; case discussed during rounds with team/nursing staff, and met with patient for supportive therapy/psychoeducation, as well as medication management. First ECT treatment today which was delayed until this afternoon. Got back from procedure, denies side effects. Denies BRAXTON but feel a little bit tired. Report anxiety and depression as moderate. No behavior issues. Resting in bed after ECT. Encourage groups when able to/ tolerated. Denies SI/SIB/HI/AVH. Continue with current plan. Medication Compliance: Yes Side effects from medications: No Attending Groups: No Review of Systems Acute medical concerns: No Medical Review of Systems: unchanged Review of Systems Review of Systems No physical compliant. Yes all other systems are reviewed and are negative Mental Status Exam Mental Status Exam Narrative: A+O, isolative, depressed, anxious. No SI/SIB/HI/AVH. Fair insight and judgment. Diagnostics Vital Signs (24Hr): Vital Signs - 24 hr 04/21/25 08:00 04/21/25 13:12 04/21/25 14:14 Temperature 98.5 F 97.9 F 98.9 F Pulse Rate 80 77 90 Respiratory Rate 17 20 17 Blood Pressure 108/62 125/75 152/85 H Pulse Oximetry 97 95 98 Oxygen Delivery Method Room Air Room Air Simple Mask Oxygen Flow Rate 6 04/21/25 14:15 04/21/25 14:20 04/21/25 14:25 Temperature Pulse Rate 87 89 86 Respiratory Rate 15 14 12 Blood Pressure 161/95 H 143/101 H 141/95 H Pulse Oximetry 96 96 96 Oxygen Delivery Method Simple Mask Simple Mask Nasal Cannula Oxygen Flow Rate 6 6 4 04/21/25 14:30 04/21/25 14:43 04/21/25 15:31 Temperature 98.4 F 98.4 F 36.4 F L Pulse Rate 87 85 74 Respiratory Rate 18 22 H 19 Blood Pressure 142/95 H 132/87 128/74 Pulse Oximetry 95 94 97 Oxygen Delivery Method Room Air Room Air Room Air Oxygen Flow Rate 04/21/25 15:32 04/21/25 16:33 04/21/25 19:57 Temperature 97.5 F 98.7 F Pulse Rate 74 85 Respiratory Rate 18 18 Blood Pressure 124/70 124/74 115/60 Pulse Oximetry 97 98 Oxygen Delivery Method Room Air Oxygen Flow Rate BMI result Body Mass Index 36.4 Labs Labs: Laboratory Results - last 48 hr 04/21/25 09:08 Total Bilirubin 0.5 Direct Bilirubin 0.2 AST 34 ALT 31 Alkaline Phosphatase 77 Ammonia 20 Total Protein 6.7 Albumin 4.1 Triglycerides 380 H Cholesterol 158 LDL Cholesterol, Calc 54 HDL Cholesterol 28 L Imaging Radiology Impressions: ITS Impressions Ankle X-Ray 04/11/25 13:50 IMPRESSION: Status post tibiotalar arthroplasty. Degenerative changes as described. Electronically signed by: Jony Olivas MD 04/11/2025 01:59 PM EST RP Foot X-Ray 04/11/25 13:51 IMPRESSION: Status post tibiotalar arthroplasty. Degenerative changes as described. Electronically signed by: Jony Olivas MD 04/11/2025 01:59 PM EST RP Medications Medications Current Medications Acetaminophen (Acetaminophen 325 Mg Tablet) 650 mg PO Q6H PRN PRN Reason: Headache/Pain, Scale 1-10 Last Admin: 04/11/25 20:40 Dose: 650 mg Al Hydroxide/Mg Hydroxide (Magnesium Hydrox/Alum Hydrox 30 Ml Oral.Susp) 30 ml PO Q6H PRN PRN Reason: Heartburn/Nausea Amlodipine Besylate (Amlodipine Besylate 10 Mg Tablet) 10 mg PO DAILY [facility]; Protocol Last Admin: 04/21/25 15:32 Dose: 10 mg Atorvastatin Calcium (Atorvastatin Calcium 80 Mg Tablet) 80 mg PO DAILY [facility] Last Admin: 04/21/25 15:31 Dose: 80 mg Clonidine HCl (Clonidine Hcl 0.1 Mg Tablet) 0.1 mg PO Q4H PRN; Protocol PRN Reason: severe anxiety Last Admin: 04/21/25 21:50 Dose: 0.1 mg Duloxetine HCl (Duloxetine Hcl 30 Mg Capsule.Dr) 30 mg PO DAILY [facility] Last Admin: 04/21/25 15:32 Dose: 30 mg Ezetimibe (Ezetimibe 10 Mg Tablet) 10 mg PO DAILY [facility] Last Admin: 04/21/25 15:32 Dose: 10 mg Escitalopram Oxalate (Escitalopram Oxalate 10 Mg Tablet) 10 mg PO BEDTIME [facility] Last Admin: 04/21/25 21:47 Dose: 10 mg Fenofibrate (Fenofibrate 160 Mg Tablet) 160 mg PO DAILY [facility] Last Admin: 04/21/25 15:31 Dose: 160 mg Folic Acid (Folic Acid 1 Mg Tablet) 1 mg PO DAILY [facility] Last Admin: 04/21/25 15:32 Dose: 1 mg Hydroxyzine HCl (Hydroxyzine Hcl 50 Mg Tablet) 50 mg PO Q6H PRN PRN Reason: mild anxiety Last Admin: 04/15/25 17:35 Dose: 50 mg Lidocaine (Lidocaine 4 % Patch Adh..Patch) 0.5 patch TRANSDERMA DAILY PRN; Protocol PRN Reason: back pain Lurasidone HCl (Lurasidone Hcl 80 Mg Tablet) 80 mg PO 1700 [facility] Last Admin: 04/21/25 17:52 Dose: 80 mg Magnesium Hydroxide (Milk Of Magnesia 30 Ml Oral.Susp) 30 ml PO DAILY PRN PRN Reason: Constipation Modafinil (Modafinil 100 Mg Tablet) 100 mg PO DAILY [facility] Last Admin: 04/21/25 15:31 Dose: 100 mg Multivitamins/Vitamin C (Multivitamin Tablet) 1 tab PO DAILY [facility] Last Admin: 04/21/25 15:32 Dose: 1 tab Naltrexone HCl (Naltrexone Hcl 50 Mg Tablet) 50 mg PO DAILY [facility] Last Admin: 04/21/25 15:31 Dose: 50 mg Nicotine Polacrilex (Nicotine Polacrilex 2 Mg Gum) 4 mg BUCCAL Q2H PRN PRN Reason: Nicotine Cravings Omeprazole (Omeprazole 20 Mg Capsule.Dr) 20 mg PO BEDTIME [facility] Last Admin: 04/21/25 21:48 Dose: 20 mg Quetiapine Fumarate (Quetiapine Fumarate 25 Mg Tablet) 25 mg PO TID PRN PRN Reason: breakthrough anxiety Last Admin: 04/21/25 21:50 Dose: 25 mg Thiamine HCl (Thiamine Hcl 100 Mg Tablet) 100 mg PO DAILY [facility] Last Admin: 04/21/25 15:32 Dose: 100 mg Topiramate (Topiramate 25 Mg Tablet) 50 mg PO BEDTIME [facility] Last Admin: 04/21/25 21:47 Dose: 50 mg Trazodone HCl (Trazodone Hcl 100 Mg Tablet) 100 mg PO BEDTIME [facility] Last Admin: 04/21/25 21:47 Dose: 100 mg Trazodone HCl (Trazodone Hcl 50 Mg Tablet) 50 mg PO BEDTIME PRN PRN Reason: Insomnia Last Admin: 04/21/25 21:48 Dose: 50 mg Allergies Allergies Allergy/AdvReac Type Severity Reaction Status Date / Time No Known Allergies Allergy Verified 04/01/25 12:28 Assessment & Plan Assessment & Plan (1) Major depressive disorder, recurrent severe without psychotic features: Status: Acute Code(s): F33.2 - Major depressive disorder, recurrent severe without psychotic features (2) Hypertriglyceridemia: Status: Acute Code(s): E78.1 - Pure hyperglyceridemia Plan PLAN: 64-year-old male with medical history of hypertension, type 2 diabetes, hyperlipidemia, compression fracture of L1, and psychiatric history of major depressive disorder, anxiety, and suicidal ideation, presented to [facility] on 04/01/2025 for worsening depression, SI, and a fall. Imaging were unrevealing. He was transferred to the ICU for treatment of metabolic syndrome. He endorsed SI before his discharge from the medical unit and therefore was transferred to yesterday. On interview with this provider, patient states that the reason for his psychiatric admission is suicide ideation and severe depression. He reports severe depression on/off, mostly on for the past several years. He feels hopeless, helpless, and worthless. He lacks interest to do things and has low energy. His symptoms are usually well controlled while on medication. However, he relapsed on drinking alcohol 3 weeks ago and stopped taking his psychotropic medications. He was drinking 5 or more nips daily. Prior to his recent relapse, he was sober for 2 years. He admits that his drinking may have worsened his depressive symptoms. He states that he stopped taking his medications because I didn't care anymore. He currently experiencing severe anxiety and depression. Regarding question about suicide ideation, he states that he does not have a plan, but if I went to sleep, I don't care if don't wake up. He denies hypomania or kaveh episodes. He denies HI/AVH. He reports severe left-sided low back pain which started after he fell the day before he presented to [facility]. CT abdomen/pelvis revealed acute to subacute superior endplate compression fracture at L1. His goal for this hospitalization is that I want to feel better about myself, and to get back on his medications. Formulation/Clinical reasoning: Patient has chronic anxiety and depression symptoms which worsened in the past 3 weeks when he stopped taking his psychotropic medications and relapsed on alcohol. His symptoms are well controlled on medications. Will continue current treatment regimen and make adjustment as needed. If he fails to respond to treatment, ECT may be ideal since it was effective in the past. Referred to addiction medicine. Lidocaine patch ordered and PT referral made for back pain. 04/10: Patient continues to be severely anxious and depressed. He also continues to experience intermittent left-sided low back pain. No SI/HI/AVH. Continue current treatment regimen. Encourage groups and to engage in physical therapy. Patient may receive inpatient ECT if he does not improve. Verbalized understanding and agreed with the plan. 04/11: Continue tx ECT consult Encourage milieu Right foot/ankle xrays 04/12 Patient says that his mood is better but he remains very anxious. Discussed options and patient agrees to trying Seroquel p.r.n. after reviewing risks/side effects of antipsychotics. 04/14: The depression is somewhat less. Anxiety is high Reports anergy as well I will do what I need to to feel better. Reviewed in team with Dr. May and Dr. Jacob. Dr. May met with pt and ECT will begin on 04/21. Denies SI,HI,AH,VH, SIBS Reports an increase of sleep and intact appetite. Pt asks to return to a regular diet as he reports poor choices on diabetic regime. Also asks that he not receive a safety tray. Intermittent group attendance Over the weekend Clonidine ordered prn along with Seroquel prn and Lidocaine Patch for pain. No new medical/diagnostic results. Plan: Provigil trial. 04/15: Pt reports Provigil has helped this a.m. Pt agrees to ECT trial and will attend milieu groups and will agree to CSS post discharge when ECT is completed. Today, discussed antidepressant trials. Identifies Venlafaxine as most helpful by history. Discussed this, along with Cymbalta with some benefits for pain mgt. Pt would like to trial Cymbalta. Attending groups this afternoon. Plan: Cymbalta 20 mg daily 04/16: Team reports pt slept last evening. He received medical clearance for ECT today Tolerating Cymbalta, Provigil. Will begin Lexapro tapering to 15 mg this evening Not attending groups Rates anxiety/depressive sx 8 today. 04/17/25: Meet with patient in assigned room, report no issues with appetite or sleep. Report anxiety an 8/10 and depression a 7/10. He eats breakfast in room. Denies alcohol craving. Report he went to a group yesterday. Denies SI/SIB/HI/AVH Per nursing, meds compliant, slept for 7 hours, compliant with meds, no side effect. mostly isolated to self in room. Constricted affect.Continue to encourage group participation. 04/18/25: Pt denies SI,HI,AH,VH He is attending some groups He is visable today in the milieu. He has informed his he as a fracture in his back and is unsure of tx plan. called pt's aids social worker to clarify. This was diagnosed when pt was on medicine, having a abdominal diagnostic. On 04/01 abdominal films for pancreatitis were completed. Compression Fx found on L1. STR was suggested by PT when discharged with no further recs when transferred to . Nehemias Fuller of PT has been following pt on M5 with exercises, stretching and observation with ambulation. He will need OP PT upon DC. Pt is anxious, apprehensive regarding ECT, however believes this is the appropriate thing to do. Discussed Cymbalta titration to 30 mg and decrease of Escitalopram to 10 mg which he agrees with. 04/19/25: Met with patient in group room A where patient spent time after breakfast watching TV. Reports anxiety 7, and depression is 6/10. Reported that he went to 1 group yesterday. Per nursing, patient slept for 7 hours, compliant with medications. Denies side effects but reports some hand tremors which be from medication or from chronic alcohol abuse. We will continue to monitor. No SI/SIB/HI/AVH. Per ECT consult provider note: Patient has not had ongoing stability from depression for an extended period of time. 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 He did respond to a course of ECT in December and did speak with the patient at the only way that I would recommend another course of ECT at this time would be if the patient will willing to do aggressive treatment including possibility if residential sober home and show a commitment to sobriety otherwise his default appears to be to going back to drinking which also has involved not taking responsibility lack of honesty at times in what he is doing in unless he could commit to this that it would be very hard to achieve any stability. Patient appeared to understand this and patient wish strongly to go forward with ECT as he felt it had been quite helpful and agreed with the above provisions also discussed with the patient the ongoing in potentially severe medical consequences of his chronic alcohol use 04/20/25: Meet with patient in room where he is eating lunch. Report that he does not want to eat and be around with people. Denies sleeping or eating appetite uses. Continue report moderate to severe anxiety of a 11/28 and depression a 10/29. Denies SI/SIB/HI/AVH. Does not have alcohol craving at this moment. Flat/constricted affect. He is looking forward to having ECT tomorrow which he was told by his primary attending. Can observed him sometimes in dinning area but keep to self, not talk to anyone unless approach. Able to make needs known. Per nursing, patient slept for 8 hours, denies side effects from medications. Report to nursing staff with same anixety and depression level. Consistent with report. Continue with current plan. Nursing staff to prapare patient for ECT per protocol. 04/21/25: First ECT treatment today which was delayed until this afternoon. Got back from procedure, denies side effects. Denies BRAXTON but feel a little bit tired. Report anxiety and depression as moderate. No behavior issues. Resting in bed after ECT. Encourage groups when able to/ tolerated. Denies SI/SIB/HI/AVH. Flat affect. Continue with current plan. Lipid profile: elevated. Plan ECT #1: 04/21/25. Admit to M5. CV 15 minutes check. -Add Seroquel 25 mg p.r.n. for anxiety Diagnostics as needed. Collateral contact. Continue remainder of regime. Encouraged full milieu. Discharge planning. Patient educated on: diagnosis, medication risk/benefits, substance abuse, ECT and therapeutic strategies Informed Consent: understands and further education needed Reason for continued inpatient stay Substantial Risk for: med/psych decompensation Time Spent With Patient Time: Total time managing care of this patient today ____ minutes.
[2025-04-22 08:00] VITALS: BP 123/60; PULSE 79; RESP 18; TEMP 36.8; O2SAT 97
--- NOTE | 2025-04-22 12:32 | P.PNPSI_ITS ---
Subjective Subjective Date of Service: 04/22/25 Reason For Visit: recurrent major depression, alcohol use disorder Subjective Notes: Conditional Voluntary Healthcare Proxy: No Guardianship: No Medical Problems Affecting Mental Status: No Interim History: Trever reports his first ECT went well and he is looking forward to continuing the series. No adverse effects reported from cross taper from Escitalopram to Duloxetine, will continue that this evening. Pt reports he is attending some groups, today, however, he is resting in bed (no groups currently occurring, however he does have a list on his bedside table). Denies SI, HI,AH, VH. Medication Compliance: Yes Side effects from medications: No Attending Groups: Intermittent Review of Systems Acute medical concerns: No Medical Review of Systems: unchanged Review of Systems Review of Systems Denies today Mental Status Exam Mental Status Exam Patient Appearance: Fatigued Patient Orientation: Person, Place, Time and Situation Level of Consciousness: Alert Patient Behavior: Talkative and Good Eye Contact Mood Description: Flat Affect Description: Flat Patient Cognition Impaired: No Ability to Follow Directions: Good Speech Pattern: Spontaneous Speech Memory Description: Episodic Impaired Hallucinations: None Delusions: Not Present Thought Process: Goal Oriented Thought Content: positive for Goal Oriented and positive for Suicidal Ideation (denies) Depressive Symptoms: Thoughts of /Suicide (denies) Judgement: Fair Diagnostics Vital Signs (24Hr): Vital Signs - 24 hr 04/21/25 13:12 04/21/25 14:14 04/21/25 14:15 Temperature 97.9 F 98.9 F Pulse Rate 77 90 87 Respiratory Rate 20 17 15 Blood Pressure 125/75 152/85 H 161/95 H Pulse Oximetry 95 98 96 Oxygen Delivery Method Room Air Simple Mask Simple Mask Oxygen Flow Rate 6 6 04/21/25 14:20 04/21/25 14:25 04/21/25 14:30 Temperature 98.4 F Pulse Rate 89 86 87 Respiratory Rate 14 12 18 Blood Pressure 143/101 H 141/95 H 142/95 H Pulse Oximetry 96 96 95 Oxygen Delivery Method Simple Mask Nasal Cannula Room Air Oxygen Flow Rate 6 4 04/21/25 14:43 04/21/25 15:31 04/21/25 15:32 Temperature 98.4 F 36.4 F L Pulse Rate 85 74 Respiratory Rate 22 H 19 Blood Pressure 132/87 128/74 124/70 Pulse Oximetry 94 97 Oxygen Delivery Method Room Air Room Air Oxygen Flow Rate 04/21/25 16:33 04/21/25 19:57 04/22/25 08:00 Temperature 97.5 F 98.7 F 98.2 F Pulse Rate 74 85 79 Respiratory Rate 18 18 18 Blood Pressure 124/74 115/60 123/60 Pulse Oximetry 97 98 97 Oxygen Delivery Method Room Air Room Air Oxygen Flow Rate BMI result Body Mass Index 36.4 Labs Labs: Laboratory Results - last 48 hr 04/21/25 09:08 Total Bilirubin 0.5 Direct Bilirubin 0.2 AST 34 ALT 31 Alkaline Phosphatase 77 Ammonia 20 Total Protein 6.7 Albumin 4.1 Triglycerides 380 H Cholesterol 158 LDL Cholesterol, Calc 54 HDL Cholesterol 28 L Imaging Radiology Impressions: ITS Impressions Ankle X-Ray 04/11/25 13:50 IMPRESSION: Status post tibiotalar arthroplasty. Degenerative changes as described. Electronically signed by: Jony Olivas MD 04/11/2025 01:59 PM EST RP Foot X-Ray 04/11/25 13:51 IMPRESSION: Status post tibiotalar arthroplasty. Degenerative changes as described. Electronically signed by: Jony Olivas MD 04/11/2025 01:59 PM EST RP Medications Medications Current Medications Acetaminophen (Acetaminophen 325 Mg Tablet) 650 mg PO Q6H PRN PRN Reason: Headache/Pain, Scale 1-10 Last Admin: 04/11/25 20:40 Dose: 650 mg Al Hydroxide/Mg Hydroxide (Magnesium Hydrox/Alum Hydrox 30 Ml Oral.Susp) 30 ml PO Q6H PRN PRN Reason: Heartburn/Nausea Amlodipine Besylate (Amlodipine Besylate 10 Mg Tablet) 10 mg PO DAILY [facility]; Protocol Last Admin: 04/22/25 09:07 Dose: 10 mg Atorvastatin Calcium (Atorvastatin Calcium 80 Mg Tablet) 80 mg PO DAILY [facility] Last Admin: 04/22/25 09:07 Dose: 80 mg Clonidine HCl (Clonidine Hcl 0.1 Mg Tablet) 0.1 mg PO Q4H PRN; Protocol PRN Reason: severe anxiety Last Admin: 04/21/25 21:50 Dose: 0.1 mg Duloxetine HCl (Duloxetine Hcl 30 Mg Capsule.Dr) 30 mg PO DAILY [facility] Last Admin: 04/22/25 09:08 Dose: 30 mg Ezetimibe (Ezetimibe 10 Mg Tablet) 10 mg PO DAILY [facility] Last Admin: 04/22/25 09:08 Dose: 10 mg Escitalopram Oxalate (Escitalopram Oxalate 10 Mg Tablet) 10 mg PO BEDTIME [facility] Last Admin: 04/21/25 21:47 Dose: 10 mg Fenofibrate (Fenofibrate 160 Mg Tablet) 160 mg PO DAILY [facility] Last Admin: 04/22/25 09:08 Dose: 160 mg Folic Acid (Folic Acid 1 Mg Tablet) 1 mg PO DAILY [facility] Last Admin: 04/22/25 09:08 Dose: 1 mg Hydroxyzine HCl (Hydroxyzine Hcl 50 Mg Tablet) 50 mg PO Q6H PRN PRN Reason: mild anxiety Last Admin: 04/15/25 17:35 Dose: 50 mg Lidocaine (Lidocaine 4 % Patch Adh..Patch) 0.5 patch TRANSDERMA DAILY PRN; Protocol PRN Reason: back pain Lurasidone HCl (Lurasidone Hcl 80 Mg Tablet) 80 mg PO 1700 [facility] Last Admin: 04/21/25 17:52 Dose: 80 mg Magnesium Hydroxide (Milk Of Magnesia 30 Ml Oral.Susp) 30 ml PO DAILY PRN PRN Reason: Constipation Modafinil (Modafinil 100 Mg Tablet) 100 mg PO DAILY [facility] Last Admin: 04/22/25 09:07 Dose: 100 mg Multivitamins/Vitamin C (Multivitamin Tablet) 1 tab PO DAILY [facility] Last Admin: 04/22/25 09:08 Dose: 1 tab Naltrexone HCl (Naltrexone Hcl 50 Mg Tablet) 50 mg PO DAILY [facility] Last Admin: 04/22/25 09:07 Dose: 50 mg Nicotine Polacrilex (Nicotine Polacrilex 2 Mg Gum) 4 mg BUCCAL Q2H PRN PRN Reason: Nicotine Cravings Omeprazole (Omeprazole 20 Mg Capsule.Dr) 20 mg PO BEDTIME [facility] Last Admin: 04/21/25 21:48 Dose: 20 mg Quetiapine Fumarate (Quetiapine Fumarate 25 Mg Tablet) 25 mg PO TID PRN PRN Reason: breakthrough anxiety Last Admin: 04/21/25 21:50 Dose: 25 mg Thiamine HCl (Thiamine Hcl 100 Mg Tablet) 100 mg PO DAILY [facility] Last Admin: 04/22/25 09:08 Dose: 100 mg Topiramate (Topiramate 25 Mg Tablet) 50 mg PO BEDTIME [facility] Last Admin: 04/21/25 21:47 Dose: 50 mg Trazodone HCl (Trazodone Hcl 100 Mg Tablet) 100 mg PO BEDTIME [facility] Last Admin: 04/21/25 21:47 Dose: 100 mg Trazodone HCl (Trazodone Hcl 50 Mg Tablet) 50 mg PO BEDTIME PRN PRN Reason: Insomnia Last Admin: 04/21/25 21:48 Dose: 50 mg Allergies Allergies Allergy/AdvReac Type Severity Reaction Status Date / Time No Known Allergies Allergy Verified 04/01/25 12:28 Assessment & Plan Assessment & Plan (1) Major depressive disorder, recurrent severe without psychotic features: Status: Acute Code(s): F33.2 - Major depressive disorder, recurrent severe without psychotic features (2) Hypertriglyceridemia: Status: Acute Code(s): E78.1 - Pure hyperglyceridemia Plan PLAN: 64-year-old male with medical history of hypertension, type 2 diabetes, hyperlipidemia, compression fracture of L1, and psychiatric history of major depressive disorder, anxiety, and suicidal ideation, presented [place] [facility] [place] for worsening depression, SI, and a fall. Imaging were unrevealing. He was transferred to the ICU for treatment of metabolic syndrome. He endorsed SI before his discharge from the medical unit and therefore was transferred to yesterday. On interview with this provider, patient states that the reason for his psychiatric admission is suicide ideation and severe depression. He reports severe depression on/off, mostly on for the past several years. He feels hopeless, helpless, and worthless. He lacks interest to do things and has low energy. His symptoms are usually well controlled while on medication. However, he relapsed on drinking alcohol 3 weeks ago and stopped taking his psychotropic medications. He was drinking 5 or more nips daily. Prior to his recent relapse, he was sober for 2 years. He admits that his drinking may have worsened his depressive symptoms. He states that he stopped taking his medications because I didn't care anymore. He currently experiencing severe anxiety and depression. Regarding question about suicide ideation, he states that he does not have a plan, but if I went to sleep, I don't care if don't wake up. He denies hypomania or kaveh episodes. He denies HI/AVH. He reports severe left-sided low back pain which started after he fell the day before he presented to [facility] abdomen/pelvis revealed acute to subacute superior endplate compression fracture at L1. His goal for this hospitalization is that I want to feel better about myself, and to get back on his medications. Formulation/Clinical reasoning: Patient has chronic anxiety and depression symptoms which worsened in the past 3 weeks when he stopped taking his psychotropic medications and relapsed on alcohol. His symptoms are well controlled on medications. Will continue current treatment regimen and make adjustment as needed. If he fails to respond to treatment, ECT may be ideal since it was effective in the past. Referred to addiction medicine. Lidocaine patch ordered and PT referral made for back pain. 04/10: Patient continues to be severely anxious and depressed. He also continues to experience intermittent left-sided low back pain. No SI/HI/AVH. Continue current treatment regimen. Encourage groups and to engage in physical therapy. Patient may receive inpatient ECT if he does not improve. Verbalized understanding and agreed with the plan. 04/11: Continue tx ECT consult Encourage milieu Right foot/ankle xrays 04/12 Patient says that his mood is better but he remains very anxious. Discussed options and patient agrees to trying Seroquel p.r.n. after reviewing risks/side effects of antipsychotics. 04/14: The depression is somewhat less. Anxiety is high Reports anergy as well I will do what I need to to feel better. Reviewed in team with Dr. May and Dr. Jacob. Dr. May met with pt and ECT will begin on 04/21. Denies SI,HI,AH,VH, SIBS Reports an increase of sleep and intact appetite. Pt asks to return to a regular diet as he reports poor choices on diabetic regime. Also asks that he not receive a safety tray. Intermittent group attendance Over the weekend Clonidine ordered prn along with Seroquel prn and Lidocaine Patch for pain. No new medical/diagnostic results. Plan: Provigil trial. 04/15: Pt reports Provigil has helped this a.m. Pt agrees to ECT trial and will attend milieu groups and will agree to CSS post discharge when ECT is completed. Today, discussed antidepressant trials. Identifies Venlafaxine as most helpful by history. Discussed this, along with Cymbalta with some benefits for pain mgt. Pt would like to trial Cymbalta. Attending groups this afternoon. Plan: Cymbalta 20 mg daily 04/16: Team reports pt slept last evening. He received medical clearance for ECT today Tolerating Cymbalta, Provigil. Will begin Lexapro tapering to 15 mg this evening Not attending groups Rates anxiety/depressive sx 8 today. 04/17/25: Meet with patient in assigned room, report no issues with appetite or sleep. Report anxiety an 8/10 and depression a 7/10. He eats breakfast in room. Denies alcohol craving. Report he went to a group yesterday. Denies SI/SIB/HI/AVH Per nursing, meds compliant, slept for 7 hours, compliant with meds, no side effect. mostly isolated to self in room. Constricted affect.Continue to encourage group participation. 04/18/25: Pt denies SI,HI,AH,VH He is attending some groups He is visable today in the milieu. He has informed his he as a fracture in his back and is unsure of tx plan. called pt's health social work professor to clarify. This was diagnosed when pt was on medicine, having a abdominal diagnostic. On 04/01 abdominal films for pancreatitis were completed. Compression Fx found on L1. STR was suggested by PT when discharged with no further recs when transferred to M5. Nehemias Fuller of PT has been following pt on M5 with exercises, stretching and observation with ambulation. He will need OP PT upon DC. Pt is anxious, apprehensive regarding ECT, however believes this is the appropriate thing to do. Discussed Cymbalta titration to 30 mg and decrease of Escitalopram to 10 mg which he agrees with. 04/19/25: Met with patient in group room A where patient spent time after breakfast watching TV. Reports anxiety 7, and depression is 6/10. Reported that he went to 1 group yesterday. Per nursing, patient slept for 7 hours, compliant with medications. Denies side effects but reports some hand tremors which be from medication or from chronic alcohol abuse. We will continue to monitor. No SI/SIB/HI/AVH. Per ECT consult provider note: Patient has not had ongoing stability from depression for an extended period of time. 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 He did respond to a course of ECT in December and did speak with the patient at the only way that I would recommend another course of ECT at this time would be if the patient will willing to do aggressive treatment including possibility if residential sober home and show a commitment to sobriety otherwise his default appears to be to going back to drinking which also has involved not taking responsibility lack of honesty at times in what he is doing in unless he could commit to this that it would be very hard to achieve any stability. Patient appeared to understand this and patient wish strongly to go forward with ECT as he felt it had been quite helpful and agreed with the above provisions also discussed with the patient the ongoing in potentially severe medical consequences of his chronic alcohol use 04/20/25: Meet with patient in room where he is eating lunch. Report that he does not want to eat and be around with people. Denies sleeping or eating appetite uses. Continue report moderate to severe anxiety of a 7/10 and depression a 6/10. Denies SI/SIB/HI/AVH. Does not have alcohol craving at this moment. Flat/constricted affect. He is looking forward to having ECT tomorrow which he was told by his primary attending. Can observed him sometimes in dinning area but keep to self, not talk to anyone unless approach. Able to make needs known. Per nursing, patient slept for 8 hours, denies side effects from medications. Report to nursing staff with same anixety and depression level. Consistent with report. Continue with current plan. Nursing staff to prapare patient for ECT per protocol. 04/21/25: First ECT treatment today which was delayed until this afternoon. Got back from procedure, denies side effects. Denies BRAXTON but feel a little bit tired. Report anxiety and depression as moderate. No behavior issues. Resting in bed after ECT. Encourage groups when able to/ tolerated. Denies SI/SIB/HI/AVH. Flat affect. Continue with current plan. Lipid profile: elevated. 04/22/25:Trever reports his first ECT went well and he is looking forward to continuing the series. No adverse effects reported from cross taper from Escitalopram to Duloxetine, will continue that this evening. Pt reports he is attending some groups, today, however, he is resting in bed (no groups currently occurring, however he does have a list on his bedside table). Denies SI, HI,AH, VH. Plan: Continue tx Plan ECT #1: 04/21/25. Admit to M5. CV 15 minutes check. -Add Seroquel 25 mg p.r.n. for anxiety Diagnostics as needed. Collateral contact. Continue remainder of regime. Encouraged full milieu. Discharge planning. Reason for continued inpatient stay Substantial Risk for: rapid decompensation Time Spent With Patient Time: Total time managing care of this patient today ____ minutes.
[2025-04-22 20:00] VITALS: BP 111/56; PULSE 80; RESP 18; TEMP 36.9; O2SAT 96
[2025-04-23] VITALS (9 sets, daily range): BP systolic 107–150; BP diastolic 56–88; PULSE 79–93; RESP 14–20; TEMP 36.3–36.8; O2SAT 92–99
--- NOTE | 2025-04-23 06:45 | HO.ANESPROP2 ---
[facility] Active Problems Active Problems: All Active Problems Alcoholic liver disease (Acute) Major depressive disorder, recurrent severe without psychotic features (Acute) Hypertriglyceridemia (Acute) Low back pain (Acute) Anxiety (Acute) Suicidal ideation (Acute) Fatigue (Acute) Past Medical History Medical History Alcoholic liver disease Major depressive disorder, recurrent severe without psychotic features Hypertriglyceridemia Fracture of nasal bone Alcohol use disorder Fatigue Family History Family history of problems with anesthesia: No Surgical History History of Problems with Anesthesia: No Social History Social History Household Members: Spouse Housing: House Do you presently have visiting nurse or other home services: No Alcohol intake: current Alcohol intake frequency: 3 or more drinks per day Alcohol type: hard liquor Comment: PT Consult ordered Patient Tobacco Use Status: Never used Tobacco Currently Displaying Signs/Symptoms of Drug Intoxication Withdrawal: No Have you been hit, kicked, punched, or otherwise hurt by someone within the past year? If so, by whom?: No Do you feel safe in your current relationship?: Yes Is there a partner from a previous relationship who is making you feel unsafe now?: No Are you made to feel afraid or neglected: No Spiritual Healthcare Practices: Yazidi Are you DNR?: No Advance Directives: Yes Advance Directives Information Provided: No Advance Directives on File: Yes Advance Directives Date on File: 04/02/25 Do you have thoughts of harming others: None Do you have a plan to hurt others: No Plan Recently lost weight without trying: No Eating poorly because of decreased appetite: No Nutrition Risks: No Nutritional Risk Poor oral hygiene: No service: No Sexual orientation: Straight/Heterosexual Meds Allergies Allergy/AdvReac Type Severity Reaction Status Date / Time No Known Allergies Allergy Verified 04/01/25 12:28 Active Medications: Current Medications Acetaminophen (Acetaminophen 325 Mg Tablet) 650 mg PO Q6H PRN PRN Reason: Headache/Pain, Scale 1-10 Last Admin: 04/11/25 20:40 Dose: 650 mg Al Hydroxide/Mg Hydroxide (Magnesium Hydrox/Alum Hydrox 30 Ml Oral.Susp) 30 ml PO Q6H PRN PRN Reason: Heartburn/Nausea Amlodipine Besylate (Amlodipine Besylate 10 Mg Tablet) 10 mg PO DAILY [facility]; Protocol Last Admin: 04/22/25 09:07 Dose: 10 mg Atorvastatin Calcium (Atorvastatin Calcium 80 Mg Tablet) 80 mg PO DAILY [facility] Last Admin: 04/22/25 09:07 Dose: 80 mg Clonidine HCl (Clonidine Hcl 0.1 Mg Tablet) 0.1 mg PO Q4H PRN; Protocol PRN Reason: severe anxiety Last Admin: 04/22/25 20:58 Dose: 0.1 mg Duloxetine HCl (Duloxetine Hcl 20 Mg Capsule.Dr) 40 mg PO DAILY [facility] Ezetimibe (Ezetimibe 10 Mg Tablet) 10 mg PO DAILY [facility] Last Admin: 04/22/25 09:08 Dose: 10 mg Escitalopram Oxalate (Escitalopram Oxalate 5 Mg Tablet) 5 mg PO BEDTIME [facility] Last Admin: 04/22/25 20:46 Dose: 5 mg Fenofibrate (Fenofibrate 160 Mg Tablet) 160 mg PO DAILY [facility] Last Admin: 04/22/25 09:08 Dose: 160 mg Folic Acid (Folic Acid 1 Mg Tablet) 1 mg PO DAILY [facility] Last Admin: 04/22/25 09:08 Dose: 1 mg Hydroxyzine HCl (Hydroxyzine Hcl 50 Mg Tablet) 50 mg PO Q6H PRN PRN Reason: mild anxiety Last Admin: 04/15/25 17:35 Dose: 50 mg Lactated Ringer's (Lr) 1,000 mls @ 50 mls/hr IVCONT .Q20H [facility] Lidocaine (Lidocaine 4 % Patch Adh..Patch) 0.5 patch TRANSDERMA DAILY PRN; Protocol PRN Reason: back pain Lurasidone HCl (Lurasidone Hcl 80 Mg Tablet) 80 mg PO 1700 [facility] Last Admin: 04/22/25 17:36 Dose: 80 mg Magnesium Hydroxide (Milk Of Magnesia 30 Ml Oral.Susp) 30 ml PO DAILY PRN PRN Reason: Constipation Modafinil (Modafinil 100 Mg Tablet) 100 mg PO DAILY [facility] Last Admin: 04/22/25 09:07 Dose: 100 mg Multivitamins/Vitamin C (Multivitamin Tablet) 1 tab PO DAILY [facility] Last Admin: 04/22/25 09:08 Dose: 1 tab Naltrexone HCl (Naltrexone Hcl 50 Mg Tablet) 50 mg PO DAILY [facility] Last Admin: 04/22/25 09:07 Dose: 50 mg Nicotine Polacrilex (Nicotine Polacrilex 2 Mg Gum) 4 mg BUCCAL Q2H PRN PRN Reason: Nicotine Cravings Omeprazole (Omeprazole 20 Mg Capsule.Dr) 20 mg PO BEDTIME [facility] Last Admin: 04/22/25 20:46 Dose: 20 mg Quetiapine Fumarate (Quetiapine Fumarate 25 Mg Tablet) 25 mg PO TID PRN PRN Reason: breakthrough anxiety Last Admin: 04/22/25 20:58 Dose: 25 mg Thiamine HCl (Thiamine Hcl 100 Mg Tablet) 100 mg PO DAILY [facility] Last Admin: 04/22/25 09:08 Dose: 100 mg Topiramate (Topiramate 25 Mg Tablet) 50 mg PO BEDTIME [facility] Last Admin: 04/22/25 21:34 Dose: Not Given Trazodone HCl (Trazodone Hcl 100 Mg Tablet) 100 mg PO BEDTIME [facility] Last Admin: 04/22/25 20:46 Dose: 100 mg Trazodone HCl (Trazodone Hcl 50 Mg Tablet) 50 mg PO BEDTIME PRN PRN Reason: Insomnia Last Admin: 04/21/25 21:48 Dose: 50 mg Home Medications ?Medication ?Instructions ?Recorded ?Confirmed ?Last Taken ?Type ezetimibe 10 mg tablet (Zetia) 10 mg PO DAILY 12/19/24 04/08/25 03/23/25 History omega-3 acid ethyl esters 1 gram 2 cap PO BID 12/19/24 04/08/25 03/23/25 History capsule rosuvastatin 20 mg tablet 20 mg PO DAILY 12/19/24 04/08/25 03/23/25 History amlodipine 10 mg tablet 10 mg PO DAILY 01/31/25 04/08/25 03/23/25 History fenofibrate 160 mg tablet 160 mg PO DAILY 01/31/25 04/08/25 03/23/25 History laxylzft-sm-jasjr 300 mcg-K 60 1 tab PO DAILY 01/31/25 04/08/25 03/23/25 History mcg-lycop 600 mcg-lutein 300 mcg tablet (Centrum Silver Men) topiramate 50 mg tablet 50 mg PO BEDTIME 01/31/25 04/08/25 03/23/25 History trazodone 100 mg tablet 100 mg PO BEDTIME insomnia 04/02/25 04/08/25 03/23/25 History Exam Height,Weight and Vital Signs: Height 5 ft 9 in Weight 111.8 kg Last Vital Signs Temp 98.4 F 04/22/25 20:00 Pulse 80 04/22/25 20:00 Resp 18 04/22/25 20:00 BP 111/56 L 04/22/25 20:00 Pulse Ox 96 04/22/25 20:00 O2 Del Method Room Air 04/22/25 20:00 O2 Flow Rate 4 04/21/25 14:25 Pertinent Lab Results Pertinent Lab Results: Laboratory Tests 04/10/25 04/21/25 07:56 09:08 Estimat Average Glucose 111 Hemoglobin A1c % 5.5 Magnesium 1.7 Total Bilirubin 0.5 Direct Bilirubin 0.2 AST 34 ALT 31 Alkaline Phosphatase 77 Ammonia 20 Total Protein 6.7 Albumin 4.1 Triglycerides 1009 H 380 H Cholesterol 253 H 158 LDL Cholesterol, Calc TNP 54 HDL Cholesterol 27 L 28 L Vitamin B12 504 Folate 14.7 TSH 4.62 H Free T4 0.83 Airway Mallampati Class: III (small mouth opening, large neck circumference) TM Dist: >3cm Neck ROM: Full Heart: rrr Lungs: cta Assessment and Plan Assessment Anesthesia Assessment: Anesthesia Plan Discussed and Chart Reviewed Final Anesthetic Review Family History of Problems with Anesthesia: No History of Problems with Anesthesia: No NPO: Yes ASA Class: III Final Preanesthetic Review: No Changes in Pt Med Stat, Meds/Allgs Chart Reviewed and Consent Obtained/Reviewed Patient Risk: Intermediate Procedure Risk: Intermediate Anesthetic Plan Anesthetic Plan: GA Disposition: Standard PACU
--- NOTE | 2025-04-23 07:25 | MHC.SHP ---
Pre-Procedural Eval Section A - 24 Hr Update-Section A only Date of Service: 04/23/25 Changes since office visit: Yes Patient answered all questions; No Cold of Flu in the past 2 weeks, No New Medical Problems and No Changes in Medication The patient has been examined within 24 hours of the surgical procedure. The History & Physical has been completed within 30 days and I have reviewed it.: Yes Section B - Complete if H&P > 30 days Chief Complaint: recurrent major depression, alcohol use disorder Allergies: Allergies Allergy/AdvReac Type Severity Reaction Status Date / Time No Known Allergies Allergy Verified 04/01/25 12:28 Plan I have reviewed the history and physical and performed a pertinent physical examination on my patient. No changes have occurred unless specified. Time Spent With Patient Time: Total time managing care of this patient today ____ minutes.
--- NOTE | 2025-04-23 07:26 | HO.ECTPROC ---
ECT Procedure Note Diagnosis/Treatment Date of Service: 04/23/25 Diagnosis: Major Depressive Disorder Previous ECT Date: 04/21/25 Current Treatment Number: 2 Treatment: Series Interval Clinical Notes: Pt quite depressed flat no complaints after 1st ECT. Completed right unilateral with LMA bite block used in addition to LMA to protect teeth Time: Total time managing care of this patient today ____ minutes. ECT Settings Device: THYMATRON DGx Electrode Placement: Right Unilateral Program/Pulse Width: 0.50 Energy Percent: 100 Seizure Duration By EEG (in seconds): 50 Medications Administration General Anesthetic: Etomidate Muscle Relaxant: Succinylcholine (180) Ancillary Medications Cardiovascular Medications: Glycopyrrolate (0.2 pre tx) Airway Management Airway Management: LMA (4) Treatment Recommendations No Changes Recommended: No change Notes: make sure to bite block around the lma Pt Tolerated Procedure w/o Issue: Yes
--- NOTE | 2025-04-23 10:38 | P.PNPSI_ITS ---
Subjective Subjective Date of Service: 04/23/25 Reason For Visit: recurrent major depression, alcohol use disorder Subjective Notes: Conditional Voluntary Healthcare Proxy: No Guardianship: No Medical Problems Affecting Mental Status: No Interim History: ECT Treatment #2. Attending groups, Resting this afternoon, tired after the treatment. Denies SI,HI,AH,VH. I am trying . Team attempting to assist pt to be more engaged and active when in group. Medication Compliance: Yes Side effects from medications: No Attending Groups: Intermittent Review of Systems Acute medical concerns: No Medical Review of Systems: unchanged Review of Systems Review of Systems Post ECT Treatment #2 today. Mental Status Exam Mental Status Exam Patient Appearance: Fatigued Patient Orientation: Person, Place, Time and Situation Level of Consciousness: Alert Patient Behavior: Talkative and Good Eye Contact Mood Description: Flat Affect Description: Flat Patient Cognition Impaired: No Ability to Follow Directions: Good Speech Pattern: Spontaneous Speech Memory Description: Episodic Impaired Hallucinations: None Delusions: Not Present Thought Process: Goal Oriented Thought Content: positive for Goal Oriented and positive for Suicidal Ideation (denies) Depressive Symptoms: Thoughts of /Suicide (denies) Judgement: Fair Diagnostics Vital Signs (24Hr): Vital Signs - 24 hr 04/22/25 20:00 04/23/25 06:46 04/23/25 07:51 Temperature 98.4 F 97.4 F 98 F Pulse Rate 80 79 93 Respiratory Rate 18 16 16 Blood Pressure 111/56 L 115/74 150/88 H Pulse Oximetry 96 99 98 Oxygen Delivery Method Room Air Room Air Room Air 04/23/25 07:55 04/23/25 08:00 04/23/25 08:05 Temperature Pulse Rate 92 92 93 Respiratory Rate 16 16 16 Blood Pressure 136/86 125/79 131/80 Pulse Oximetry 97 95 96 Oxygen Delivery Method Room Air Room Air Room Air 04/23/25 08:15 04/23/25 08:30 04/23/25 09:11 Temperature 98 F Pulse Rate 93 87 84 Respiratory Rate 16 16 14 Blood Pressure 120/79 107/74 115/61 Pulse Oximetry 96 93 92 Oxygen Delivery Method Room Air Room Air BMI result Body Mass Index 36.4 Imaging Radiology Impressions: ITS Impressions Ankle X-Ray 04/11/25 13:50 IMPRESSION: Status post tibiotalar arthroplasty. Degenerative changes as described. Electronically signed by: Jony Olivas MD 04/11/2025 01:59 PM EST RP Foot X-Ray 04/11/25 13:51 IMPRESSION: Status post tibiotalar arthroplasty. Degenerative changes as described. Electronically signed by: Jony Olivas MD 04/11/2025 01:59 PM EST RP Medications Medications Current Medications Acetaminophen (Acetaminophen 325 Mg Tablet) 650 mg PO Q6H PRN PRN Reason: Headache/Pain, Scale 1-10 Last Admin: 04/11/25 20:40 Dose: 650 mg Al Hydroxide/Mg Hydroxide (Magnesium Hydrox/Alum Hydrox 30 Ml Oral.Susp) 30 ml PO Q6H PRN PRN Reason: Heartburn/Nausea Amlodipine Besylate (Amlodipine Besylate 10 Mg Tablet) 10 mg PO DAILY [facility]; Protocol Last Admin: 04/23/25 09:32 Dose: 10 mg Atorvastatin Calcium (Atorvastatin Calcium 80 Mg Tablet) 80 mg PO DAILY [facility] Last Admin: 04/23/25 09:32 Dose: 80 mg Clonidine HCl (Clonidine Hcl 0.1 Mg Tablet) 0.1 mg PO Q4H PRN; Protocol PRN Reason: severe anxiety Last Admin: 04/22/25 20:58 Dose: 0.1 mg Duloxetine HCl (Duloxetine Hcl 20 Mg Capsule.Dr) 40 mg PO DAILY [facility] Last Admin: 04/23/25 09:32 Dose: 40 mg Ezetimibe (Ezetimibe 10 Mg Tablet) 10 mg PO DAILY [facility] Last Admin: 04/23/25 09:32 Dose: 10 mg Escitalopram Oxalate (Escitalopram Oxalate 5 Mg Tablet) 5 mg PO BEDTIME [facility] Last Admin: 04/22/25 20:46 Dose: 5 mg Fenofibrate (Fenofibrate 160 Mg Tablet) 160 mg PO DAILY [facility] Last Admin: 04/23/25 09:32 Dose: 160 mg Folic Acid (Folic Acid 1 Mg Tablet) 1 mg PO DAILY [facility] Last Admin: 04/23/25 09:32 Dose: 1 mg Hydroxyzine HCl (Hydroxyzine Hcl 50 Mg Tablet) 50 mg PO Q6H PRN PRN Reason: mild anxiety Last Admin: 04/15/25 17:35 Dose: 50 mg Lactated Ringer's (Lr) 1,000 mls @ 50 mls/hr IVCONT .Q20H [facility] Last Admin: 04/23/25 09:11 Dose: Not Given Lidocaine (Lidocaine 4 % Patch Adh..Patch) 0.5 patch TRANSDERMA DAILY PRN; Protocol PRN Reason: back pain Lurasidone HCl (Lurasidone Hcl 80 Mg Tablet) 80 mg PO 1700 [facility] Last Admin: 04/22/25 17:36 Dose: 80 mg Magnesium Hydroxide (Milk Of Magnesia 30 Ml Oral.Susp) 30 ml PO DAILY PRN PRN Reason: Constipation Modafinil (Modafinil 100 Mg Tablet) 100 mg PO DAILY [facility] Last Admin: 04/23/25 09:32 Dose: 100 mg Multivitamins/Vitamin C (Multivitamin Tablet) 1 tab PO DAILY [facility] Last Admin: 04/23/25 09:32 Dose: 1 tab Naloxone HCl (Naloxone Hcl 0.4 Mg/Ml Vial) 0.04 mg IVPUSH Q5M PRN PRN Reason: Excessive sedation or RR < 8 Naltrexone HCl (Naltrexone Hcl 50 Mg Tablet) 50 mg PO DAILY [facility] Last Admin: 04/23/25 09:32 Dose: 50 mg Nicotine Polacrilex (Nicotine Polacrilex 2 Mg Gum) 4 mg BUCCAL Q2H PRN PRN Reason: Nicotine Cravings Omeprazole (Omeprazole 20 Mg Capsule.Dr) 20 mg PO BEDTIME [facility] Last Admin: 04/22/25 20:46 Dose: 20 mg Quetiapine Fumarate (Quetiapine Fumarate 25 Mg Tablet) 25 mg PO TID PRN PRN Reason: breakthrough anxiety Last Admin: 04/22/25 20:58 Dose: 25 mg Thiamine HCl (Thiamine Hcl 100 Mg Tablet) 100 mg PO DAILY [facility] Last Admin: 04/23/25 09:32 Dose: 100 mg Topiramate (Topiramate 25 Mg Tablet) 50 mg PO BEDTIME [facility] Last Admin: 04/22/25 21:34 Dose: Not Given Trazodone HCl (Trazodone Hcl 100 Mg Tablet) 100 mg PO BEDTIME [facility] Last Admin: 04/22/25 20:46 Dose: 100 mg Trazodone HCl (Trazodone Hcl 50 Mg Tablet) 50 mg PO BEDTIME PRN PRN Reason: Insomnia Last Admin: 04/21/25 21:48 Dose: 50 mg Allergies Allergies Allergy/AdvReac Type Severity Reaction Status Date / Time No Known Allergies Allergy Verified 04/01/25 12:28 Assessment & Plan Assessment & Plan (1) Major depressive disorder, recurrent severe without psychotic features: Status: Acute Code(s): F33.2 - Major depressive disorder, recurrent severe without psychotic features (2) Hypertriglyceridemia: Status: Acute Code(s): E78.1 - Pure hyperglyceridemia Plan PLAN: 64-year-old male with medical history of hypertension, type 2 diabetes, hyperlipidemia, compression fracture of L1, and psychiatric history of major depressive disorder, anxiety, and suicidal ideation, presented to [facility] on 04/01/2025 for worsening depression, SI, and a fall. Imaging were unrevealing. He was transferred to the ICU for treatment of metabolic syndrome. He endorsed SI before his discharge from the medical unit and therefore was transferred to yesterday. On interview with this provider, patient states that the reason for his psychiatric admission is suicide ideation and severe depression. He reports se karen depression on/off, mostly on for the past several years. He feels hopeless, helpless, and worthless. He lacks interest to do things and has low energy. His symptoms are usually well controlled while on medication. However, he relapsed on drinking alcohol 3 weeks ago and stopped taking his psychotropic medications. He was drinking 5 or more nips daily. Prior to his recent relapse, he was sober for 2 years. He admits that his drinking may have worsened his depressive symptoms. He states that he stopped taking his medications because I didn't care anymore. He currently experiencing severe anxiety and depression. Regarding question about suicide ideation, he states that he does not have a plan, but if I went to sleep, I don't care if don't wake up. He denies hypomania or kaveh episodes. He denies HI/AVH. He reports severe left-sided low back pain which started after he fell the day before he presented to [facility]. CT abdomen/pelvis revealed acute to subacute superior endplate compression fracture at L1. His goal for this hospitalization is that I want to feel better about myself, and to get back on his medications. Formulation/Clinical reasoning: Patient has chronic anxiety and depression symptoms which worsened in the past 3 weeks when he stopped taking his psychotropic medications and relapsed on alcohol. His symptoms are well controlled on medications. Will continue current treatment regimen and make adjustment as needed. If he fails to respond to treatment, ECT may be ideal since it was effective in the past. Referred to addiction medicine. Lidocaine patch ordered and PT referral made for back pain. 04/10: Patient continues to be severely anxious and depressed. He also continues to experience intermittent left-sided low back pain. No SI/HI/AVH. Continue current treatment regimen. Encourage groups and to engage in physical therapy. Patient may receive inpatient ECT if he does not improve. Verbalized understanding and agreed with the plan. 04/11: Continue tx ECT consult Encourage milieu Right foot/ankle xrays 04/12 Patient says that his mood is better but he remains very anxious. Discussed options and patient agrees to trying Seroquel p.r.n. after reviewing risks/side effects of antipsychotics. 04/14: The depression is somewhat less. Anxiety is high Reports anergy as well I will do what I need to to feel better. Reviewed in team with Dr. May and Dr. Jacob. Dr. May met with pt and ECT will begin on 04/21. Denies SI,HI,AH,VH, SIBS Reports an increase of sleep and intact appetite. Pt asks to return to a regular diet as he reports poor choices on diabetic regime. Also asks that he not receive a safety tray. Intermittent group attendance Over the weekend Clonidine ordered prn along with Seroquel prn and Lidocaine Patch for pain. No new medical/diagnostic results. Plan: Provigil trial. 04/15: Pt reports Provigil has helped this a.m. Pt agrees to ECT trial and will attend milieu groups and will agree to CSS post discharge when ECT is completed. Today, discussed antidepressant trials. Identifies Venlafaxine as most helpful by history. Discussed this, along with Cymbalta with some benefits for pain mgt. Pt would like to trial Cymbalta. Attending groups this afternoon. Plan: Cymbalta 20 mg daily 04/16: Team reports pt slept last evening. He received medical clearance for ECT today Tolerating Cymbalta, Provigil. Will begin Lexapro tapering to 15 mg this evening Not attending groups Rates anxiety/depressive sx 8 today. 04/17/25: Meet with patient in assigned room, report no issues with appetite or sleep. Report anxiety an 8/10 and depression a 7/10. He eats breakfast in room. Denies alcohol craving. Report he went to a group yesterday. Denies SI/SIB/HI/AVH Per nursing, meds compliant, slept for 7 hours, compliant with meds, no side effect. mostly isolated to self in room. Constricted affect.Continue to encourage group participation. 04/18/25: Pt denies SI,HI,AH,VH He is attending some groups He is visable today in the milieu. He has informed his he as a fracture in his back and is unsure of tx plan. called pt's social worker delinquency prevention to clarify. This was diagnosed when pt was on medicine, having a abdominal diagnostic. On 04/01 abdominal films for pancreatitis were completed. Compression Fx found on L1. STR was suggested by PT when discharged with no further recs when transferred to M5. Nehemias Fuller of PT has been following pt on M5 with exercises, stretching and observation with ambulation. He will need OP PT upon DC. Pt is anxious, apprehensive regarding ECT, however believes this is the appropriate thing to do. Discussed Cymbalta titration to 30 mg and decrease of Escitalopram to 10 mg which he agrees with. 04/19/25: Met with patient in group room A where patient spent time after breakfast watching TV. Reports anxiety 7, and depression is 6/10. Reported that he went to 1 group yesterday. Per nursing, patient slept for 7 hours, compliant with medications. Denies side effects but reports some hand tremors which be from medication or from chronic alcohol abuse. We will continue to m onitor. No SI/SIB/HI/AVH. Per ECT consult provider note: Patient has not had ongoing stability from depression for an extended period of time. 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 He did respond to a course of ECT in December and did speak with the patient at the only way that I would recommend another course of ECT at this time would be if the patient will willing to do aggressive treatment including possibility if residential sober home and show a commitment to sobriety otherwise his default appears to be to going back to drinking which also has involved not taking responsibility lack of honesty at times in what he is doing in unless he could commit to this that it would be very hard to achieve any stability. Patient appeared to understand this and patient wish strongly to go forward with ECT as he felt it had been quite helpful and agreed with the above provisions also discussed with the patient the ongoing in potentially severe medical consequences of his chronic alcohol use 04/20/25: Meet with patient in room where he is eating lunch. Report that he does not want to eat and be around with people. Denies sleeping or eating appetite uses. Continue report moderate to severe anxiety of a 7/10 and depression a 6/10. Denies SI/SIB/HI/AVH. Does not have alcohol craving at this moment. Flat/constricted affect. He is looking forward to having ECT tomorrow which he was told by his primary attending. Can observed him sometimes in dinning area but keep to self, not talk to anyone unless approach. Able to make needs known. Per nursing, patient slept for 8 hours, denies side effects from medications. Report to nursing staff with same anixety and depression level. Consistent with report. Continue with current plan. Nursing staff to prapare patient for ECT per protocol. 04/21/25: First ECT treatment today which was delayed until this afternoon. Got back from procedure, denies side effects. Denies BRAXTON but feel a little bit tired. Report anxiety and depression as moderate. No behavior issues. Resting in bed after ECT. Encourage groups when able to/ tolerated. Denies SI/SIB/HI/AVH. Flat affect. Continue with current plan. Lipid profile: elevated. 04/22/25:Trever reports his first ECT went well and he is looking forward to continuing the series. No adverse effects reported from cross taper from Escitalopram to Duloxetine, will continue that this evening. Pt reports he is attending some groups, today, however, he is resting in bed (no groups currently occurring, however he does have a list on his bedside table). Denies SI, HI,AH, VH. Plan: Continue tx 04/23/25: ECT Treatment #2. Attending groups, Resting this afternoon, tired after the treatment. Denies SI,HI,AH,VH. I am trying . Team attempting to assist pt to be more engaged and active when in group. Continue tx. Plan ECT #1: 04/21/25. Admit to M5. CV 15 minutes check. -Add Seroquel 25 mg p.r.n. for anxiety Diagnostics as needed. Collateral contact. Continue remainder of regime. Encouraged full milieu. Discharge planning. Reason for continued inpatient stay Substantial Risk for: rapid decompensation Time Spent With Patient Time: Total time managing care of this patient today ____ minutes.
[2025-04-24 07:00] VITALS: BMI 36.7
[2025-04-24 08:00] VITALS: BP 118/55; PULSE 77; RESP 16; TEMP 37; O2SAT 97
--- NOTE | 2025-04-24 09:11 | HO.PSYCHPN ---
Subjective Subjective Date of Service: 04/24/25 Reason For Visit: recurrent major depression, alcohol use disorder Subjective Notes: Conditional Voluntary Healthcare Proxy: No Guardianship: No Medical Problems Affecting Mental Status: No Interim History: Denies SI,HI,AH,VH. Discussed re-starting of Robaxin-we will decrease dosing from 750 to 500 as pt feels sedate. Reports ECT is tolerated. Denies adverse effect, denies feeling benefit after two treatments. Medication Compliance: Yes Side effects from medications: Yes (sedation) Attending Groups: No Review of Systems Acute medical concerns: No Medical Review of Systems: unchanged Review of Systems Review of Systems back pain Mental Status Exam Mental Status Exam Patient Appearance: Fatigued Patient Orientation: Person, Place, Time and Situation Level of Consciousness: Alert Patient Behavior: Talkative and Good Eye Contact Mood Description: Flat Affect Description: Flat Patient Cognition Impaired: No Ability to Follow Directions: Good Speech Pattern: Spontaneous Speech Memory Description: Episodic Impaired Hallucinations: None Delusions: Not Present Thought Process: Goal Oriented Thought Content: positive for Goal Oriented and positive for Suicidal Ideation (denies) Depressive Symptoms: Thoughts of /Suicide (denies) Judgement: Fair Diagnostics Vital Signs (24Hr): Vital Signs - 24 hr 04/23/25 19:52 04/24/25 08:00 Temperature 98.2 F 98.6 F Pulse Rate 80 77 Respiratory Rate 20 16 Blood Pressure 119/56 L 118/55 L Pulse Oximetry 94 97 Oxygen Delivery Method Room Air Room Air BMI result Body Mass Index 36.4 Imaging Radiology Impressions: ITS Impressions Ankle X-Ray 04/11/25 13:50 IMPRESSION: Status post tibiotalar arthroplasty. Degenerative changes as described. Electronically signed by: Jony Olivas MD 04/11/2025 01:59 PM EST RP Foot X-Ray 04/11/25 13:51 IMPRESSION: Status post tibiotalar arthroplasty. Degenerative changes as described. Electronically signed by: Jony Olivas MD 04/11/2025 01:59 PM EST RP Medications Medications Current Medications Acetaminophen (Acetaminophen 325 Mg Tablet) 650 mg PO Q6H PRN PRN Reason: Headache/Pain, Scale 1-10 Last Admin: 04/11/25 20:40 Dose: 650 mg Al Hydroxide/Mg Hydroxide (Magnesium Hydrox/Alum Hydrox 30 Ml Oral.Susp) 30 ml PO Q6H PRN PRN Reason: Heartburn/Nausea Amlodipine Besylate (Amlodipine Besylate 10 Mg Tablet) 10 mg PO DAILY [facility]; Protocol Last Admin: 04/24/25 08:50 Dose: 10 mg Atorvastatin Calcium (Atorvastatin Calcium 80 Mg Tablet) 80 mg PO DAILY [facility] Last Admin: 04/24/25 08:50 Dose: 80 mg Clonidine HCl (Clonidine Hcl 0.1 Mg Tablet) 0.1 mg PO Q4H PRN; Protocol PRN Reason: severe anxiety Last Admin: 04/23/25 20:56 Dose: 0.1 mg Duloxetine HCl (Duloxetine Hcl 20 Mg Capsule.Dr) 40 mg PO DAILY [facility] Last Admin: 04/24/25 08:50 Dose: 40 mg Ezetimibe (Ezetimibe 10 Mg Tablet) 10 mg PO DAILY [facility] Last Admin: 04/24/25 08:49 Dose: 10 mg Escitalopram Oxalate (Escitalopram Oxalate 5 Mg Tablet) 5 mg PO BEDTIME [facility] Last Admin: 04/23/25 20:30 Dose: 5 mg Fenofibrate (Fenofibrate 160 Mg Tablet) 160 mg PO DAILY [facility] Last Admin: 04/24/25 08:50 Dose: 160 mg Folic Acid (Folic Acid 1 Mg Tablet) 1 mg PO DAILY [facility] Last Admin: 04/24/25 08:50 Dose: 1 mg Hydroxyzine HCl (Hydroxyzine Hcl 50 Mg Tablet) 50 mg PO Q6H PRN PRN Reason: mild anxiety Last Admin: 04/15/25 17:35 Dose: 50 mg Lactated Ringer's (Lr) 1,000 mls @ 50 mls/hr IVCONT .Q20H [facility] Last Admin: 04/24/25 03:41 Dose: Not Given Lidocaine (Lidocaine 4 % Patch Adh..Patch) 0.5 patch TRANSDERMA DAILY PRN; Protocol PRN Reason: back pain Lurasidone HCl (Lurasidone Hcl 80 Mg Tablet) 80 mg PO 1700 [facility] Last Admin: 04/23/25 17:09 Dose: 80 mg Magnesium Hydroxide (Milk Of Magnesia 30 Ml Oral.Susp) 30 ml PO DAILY PRN PRN Reason: Constipation Methocarbamol (Methocarbamol 750 Mg Tablet) 750 mg PO TID [facility] Last Admin: 04/24/25 08:50 Dose: 750 mg Modafinil (Modafinil 100 Mg Tablet) 100 mg PO DAILY [facility] Last Admin: 04/24/25 08:50 Dose: 100 mg Multivitamins/Vitamin C (Multivitamin Tablet) 1 tab PO DAILY [facility] Last Admin: 04/24/25 08:50 Dose: 1 tab Naloxone HCl (Naloxone Hcl 0.4 Mg/Ml Vial) 0.04 mg IVPUSH Q5M PRN PRN Reason: Excessive sedation or RR < 8 Naltrexone HCl (Naltrexone Hcl 50 Mg Tablet) 50 mg PO DAILY [facility] Last Admin: 04/24/25 08:50 Dose: 50 mg Nicotine Polacrilex (Nicotine Polacrilex 2 Mg Gum) 4 mg BUCCAL Q2H PRN PRN Reason: Nicotine Cravings Omeprazole (Omeprazole 20 Mg Capsule.Dr) 20 mg PO BEDTIME [facility] Last Admin: 04/23/25 20:30 Dose: 20 mg Quetiapine Fumarate (Quetiapine Fumarate 25 Mg Tablet) 25 mg PO TID PRN PRN Reason: breakthrough anxiety Last Admin: 04/23/25 20:56 Dose: 25 mg Thiamine HCl (Thiamine Hcl 100 Mg Tablet) 100 mg PO DAILY [facility] Last Admin: 04/24/25 08:50 Dose: 100 mg Topiramate (Topiramate 25 Mg Tablet) 50 mg PO BEDTIME [facility] Last Admin: 04/23/25 20:30 Dose: 50 mg Trazodone HCl (Trazodone Hcl 100 Mg Tablet) 100 mg PO BEDTIME [facility] Last Admin: 04/23/25 20:30 Dose: 100 mg Trazodone HCl (Trazodone Hcl 50 Mg Tablet) 50 mg PO BEDTIME PRN PRN Reason: Insomnia Last Admin: 04/21/25 21:48 Dose: 50 mg Allergies Allergies Allergy/AdvReac Type Severity Reaction Status Date / Time No Known Allergies Allergy Verified 04/01/25 12:28 Assessment & Plan Assessment & Plan (1) Major depressive disorder, recurrent severe without psychotic features: Status: Acute Code(s): F33.2 - Major depressive disorder, recurrent severe without psychotic features (2) Hypertriglyceridemia: Status: Acute Code(s): E78.1 - Pure hyperglyceridemia Plan PLAN: 64-year-old male with medical history of hypertension, type 2 diabetes, hyperlipidemia, compression fracture of L1, and psychiatric history of major depressive disorder, anxiety, and suicidal ideation, presented to [facility] on 04/01/2025 for worsening depression, SI, and a fall. Imaging were unrevealing. He was transferred to the ICU for treatment of metabolic syndrome. He endorsed SI before his discharge from the medical unit and therefore was transferred to yesterday. On interview with this provider, patient states that the reason for his psychiatric admission is suicide ideation and severe depression. He reports severe depression on/off, mostly on for the past several years. He feels hopeless, helpless, and worthless. He lacks interest to do things and has low energy. His symptoms are usually well controlled while on medication. However, he relapsed on drinking alcohol 3 weeks ago and stopped taking his psychotropic medications. He was drinking 5 or more nips daily. Prior to his recent relapse, he was sober for 2 years. He admits that his drinking may have worsened his depressive symptoms. He states that he stopped taking his medications because I didn't care anymore. He currently experiencing severe anxiety and depression. Regarding question about suicide ideation, he states that he does not have a plan, but if I went to sleep, I don't care if don't wake up. He denies hypomania or kaveh episodes. He denies HI/AVH. He reports severe left-sided low back pain which started after he fell the day before he presented to [facility]. CT abdomen/pelvis revealed acute to subacute superior endplate compression fracture at L1. His goal for this hospitalization is that I want to feel better about myself, and to get back on his medications. Formulation/Clinical reasoning: Patient has chronic anxiety and depression symptoms which worsened in the past 3 weeks when he stopped taking his psychotropic medications and relapsed on alcohol. His symptoms are well controlled on medications. Will continue current treatment regimen and make adjustment as needed. If he fails to respond to treatment, ECT may be ideal since it was effective in the past. Referred to addiction medicine. Lidocaine patch ordered and PT referral made for back pain. 04/10: Patient continues to be severely anxious and depressed. He also continues to experience intermittent left-sided low back pain. No SI/HI/AVH. Continue current treatment regimen. Encourage groups and to engage in physical therapy. Patient may receive inpatient ECT if he does not improve. Verbalized understanding and agreed with the plan. 04/11: Continue tx ECT consult Encourage milieu Right foot/ankle xrays 04/12 Patient says that his mood is better but he remains very anxious. Discussed options and patient agrees to trying Seroquel p.r.n. after reviewing risks/side effects of antipsychotics. 04/14: The depression is somewhat less. Anxiety is high Reports anergy as well I will do what I need to to feel better. Reviewed in team with Dr. May and Dr. Jacob. Dr. May met with pt and ECT will begin on 04/21. Denies SI,HI,AH,VH, SIBS Reports an increase of sleep and intact appetite. Pt asks to return to a regular diet as he reports poor choices on diabetic regime. Also asks that he not receive a safety tray. Intermittent group attendance Over the weekend Clonidine ordered prn along with Seroquel prn and Lidocaine Patch for pain. No new medical/diagnostic results. Plan: Provigil trial. 04/15: Pt reports Provigil has helped this a.m. Pt agrees to ECT trial and will attend milieu groups and will agree to CSS post discharge when ECT is completed. Today, discussed antidepressant trials. Identifies Venlafaxine as most helpful by history. Discussed this, along with Cymbalta with some benefits for pain mgt. Pt would like to trial Cymbalta. Attending groups this afternoon. Plan: Cymbalta 20 mg daily 04/16: Team reports pt slept last evening. He received medical clearance for ECT today Tolerating Cymbalta, Provigil. Will begin Lexapro tapering to 15 mg this evening Not attending groups Rates anxiety/depressive sx 8 today. 04/17/25: Meet with patient in assigned room, report no issues with appetite or sleep. Report anxiety an 8/10 and depression a 7/10. He eats breakfast in room. Denies alcohol craving. Report he went to a group yesterday. Denies SI/SIB/HI/AVH Per nursing, meds compliant, slept for 7 hours, compliant with meds, no side effect. mostly isolated to self in room. Constricted affect.Continue to encourage group participation. 04/18/25: Pt denies SI,HI,AH,VH He is attending some groups He is visable today in the milieu. He has informed his he as a fracture in his back and is unsure of tx plan. called pt's dialysis social worker to clarify. This was diagnosed when pt was on medicine, having a abdominal diagnostic. On 04/01 abdominal films for pancreatitis were completed. Compression Fx found on L1. STR was suggested by PT when discharged with no further recs when transferred to M5. Nehemias Fuller of PT has been following pt on M5 with exercises, stretching and observation with ambulation. He will need OP PT upon DC. Pt is anxious, apprehensive regarding ECT, however believes this is the appropriate thing to do. Discussed Cymbalta titration to 30 mg and decrease of Escitalopram to 10 mg which he agrees with. 04/19/25: Met with patient in group room A where patient spent time after breakfast watching TV. Reports anxiety 7, and depression is 6/10. Reported that he went to 1 group yesterday. Per nursing, patient slept for 7 hours, compliant with medications. Denies side effects but reports some hand tremors which be from medication or from chronic alcohol abuse. We will continue to monitor. No SI/SIB/HI/AVH. Per ECT consult provider note: Patient has not had ongoing stability from depression for an extended period of time. 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 He did respond to a course of ECT in December and did speak with the patient at the only way that I would recommend another course of ECT at this time would be if the patient will willing to do aggressive treatment including possibility if residential sober home and show a commitment to sobriety otherwise his default appears to be to going back to drinking which also has involved not taking responsibility lack of honesty at times in what he is doing in unless he could commit to this that it would be very hard to achieve any stability. Patient appeared to understand this and patient wish strongly to go forward with ECT as he felt it had been quite helpful and agreed with the above provisions also discussed with the patient the ongoing in potentially severe medical consequences of his chronic alcohol use 04/20/25: Meet with patient in room where he is eating lunch. Report that he does not want to eat and be around with people. Denies sleeping or eating appetite uses. Continue report moderate to severe anxiety of a 7/10 and depression a 6/10. Denies SI/SIB/HI/AVH. Does not have alcohol craving at this moment. Flat/constricted affect. He is looking forward to having ECT tomorrow which he was told by his primary attending. Can observed him sometimes in dinning area but keep to self, not talk to anyone unless approach. Able to make needs known. Per nursing, patient slept for 8 hours, denies side effects from medications. Report to nursing staff with same anixety and depression level. Consistent with report. Continue with current plan. Nursing staff to prapare patient for ECT per protocol. 04/21/25: First ECT treatment today which was delayed until this afternoon. Got back from procedure, denies side effects. Denies BRAXTON but feel a little bit tired. Report anxiety and depression as moderate. No behavior issues. Resting in bed after ECT. Encourage groups when able to/ tolerated. Denies SI/SIB/HI/AVH. Flat affect. Continue with current plan. Lipid profile: elevated. 04/22/25:Trever reports his first ECT went well and he is looking forward to continuing the series. No adverse effects reported from cross taper from Escitalopram to Duloxetine, will continue that this evening. Pt reports he is attending some groups, today, however, he is resting in bed (no groups currently occurring, however he does have a list on his bedside table). Denies SI, HI,AH, VH. Plan: Continue tx 04/23/25: ECT Treatment #2. Attending groups, Resting this afternoon, tired after the treatment. Denies SI,HI,AH,VH. I am trying . Team attempting to assist pt to be more engaged and active when in group. Continue tx. 04/24/25: Continue tx. Plan ECT #1: 04/21/25. Admit to M5. CV 15 minutes check. -Add Seroquel 25 mg p.r.n. for anxiety Diagnostics as needed. Collateral contact. Continue remainder of regime. Encouraged full milieu. Discharge planning. Reason for continued inpatient stay Substantial Risk for: rapid decompensation Time Spent With Patient Time: Total time managing care of this patient today ____ minutes.
[2025-04-24 20:00] VITALS: BP 119/66; PULSE 79; RESP 18; TEMP 36.9; O2SAT 98
[2025-04-25] VITALS (11 sets, daily range): BP systolic 97–154; BP diastolic 58–79; PULSE 70–100; RESP 16–18; TEMP 36.1–37.1; O2SAT 95–99
--- NOTE | 2025-04-25 10:14 | HO.PSYCHPN ---
Subjective Subjective Date of Service: 04/25/25 Reason For Visit: recurrent major depression, alcohol use disorder Subjective Notes: Conditional Voluntary Healthcare Proxy: No Guardianship: No Medical Problems Affecting Mental Status: No Interim History: ECT Treatment 3 today. Pt up and about after the treatment, reporting he is feeling well. Denies SI,HI,AH,VH. Reports depressive, anxious sx around a 6 Active later this afternoon with peers in the milieu, appearing brighter. Denies current treatment questions or concerns. Medication Compliance: Yes Side effects from medications: No Attending Groups: No (ECT day) Review of Systems Acute medical concerns: No Medical Review of Systems: unchanged Review of Systems Review of Systems Denies post ECT treatment Mental Status Exam Mental Status Exam Patient Appearance: Appropriate Patient Orientation: Person, Place, Time and Situation Level of Consciousness: Alert Patient Behavior: Talkative and Good Eye Contact Mood Description: Flat Affect Description: Flat Patient Cognition Impaired: No Ability to Follow Directions: Good Speech Pattern: Spontaneous Speech Memory Description: Episodic Impaired Hallucinations: None Delusions: Not Present Thought Process: Goal Oriented Thought Content: positive for Goal Oriented and positive for Suicidal Ideation (denies) Depressive Symptoms: Thoughts of /Suicide (denies) Judgement: Fair Diagnostics Vital Signs (24Hr): Vital Signs - 24 hr 04/24/25 20:00 04/25/25 08:00 Temperature 98.4 F 98.2 F Pulse Rate 79 79 Respiratory Rate 18 16 Blood Pressure 119/66 128/58 L Pulse Oximetry 98 96 Oxygen Delivery Method Room Air Room Air BMI result Body Mass Index 36.7 Imaging Radiology Impressions: ITS Impressions Ankle X-Ray 04/11/25 13:50 IMPRESSION: Status post tibiotalar arthroplasty. Degenerative changes as described. Electronically signed by: Jony Olivas MD 04/11/2025 01:59 PM EST RP Foot X-Ray 04/11/25 13:51 IMPRESSION: Status post tibiotalar arthroplasty. Degenerative changes as described. Electronically signed by: Jony Olivas MD 04/11/2025 01:59 PM EST RP Medications Medications Current Medications Acetaminophen (Acetaminophen 325 Mg Tablet) 650 mg PO Q6H PRN PRN Reason: Headache/Pain, Scale 1-10 Last Admin: 04/11/25 20:40 Dose: 650 mg Al Hydroxide/Mg Hydroxide (Magnesium Hydrox/Alum Hydrox 30 Ml Oral.Susp) 30 ml PO Q6H PRN PRN Reason: Heartburn/Nausea Amlodipine Besylate (Amlodipine Besylate 10 Mg Tablet) 10 mg PO DAILY [facility]; Protocol Last Admin: 04/24/25 08:50 Dose: 10 mg Atorvastatin Calcium (Atorvastatin Calcium 80 Mg Tablet) 80 mg PO DAILY [facility] Last Admin: 04/24/25 08:50 Dose: 80 mg Clonidine HCl (Clonidine Hcl 0.1 Mg Tablet) 0.1 mg PO Q4H PRN; Protocol PRN Reason: severe anxiety Last Admin: 04/24/25 21:23 Dose: 0.1 mg Duloxetine HCl (Duloxetine Hcl 20 Mg Capsule.Dr) 40 mg PO DAILY [facility] Last Admin: 04/24/25 08:50 Dose: 40 mg Ezetimibe (Ezetimibe 10 Mg Tablet) 10 mg PO DAILY [facility] Last Admin: 04/24/25 08:49 Dose: 10 mg Escitalopram Oxalate (Escitalopram Oxalate 5 Mg Tablet) 5 mg PO BEDTIME [facility] Stop: 04/26/25 22:00 Last Admin: 04/24/25 21:17 Dose: 5 mg Fenofibrate (Fenofibrate 160 Mg Tablet) 160 mg PO DAILY [facility] Last Admin: 04/24/25 08:50 Dose: 160 mg Folic Acid (Folic Acid 1 Mg Tablet) 1 mg PO DAILY [facility] Last Admin: 04/24/25 08:50 Dose: 1 mg Hydroxyzine HCl (Hydroxyzine Hcl 50 Mg Tablet) 50 mg PO Q6H PRN PRN Reason: mild anxiety Last Admin: 04/24/25 21:17 Dose: 50 mg Lidocaine (Lidocaine 4 % Patch Adh..Patch) 0.5 patch TRANSDERMA DAILY PRN; Protocol PRN Reason: back pain Lurasidone HCl (Lurasidone Hcl 80 Mg Tablet) 80 mg PO 1700 [facility] Last Admin: 04/24/25 17:25 Dose: 80 mg Magnesium Hydroxide (Milk Of Magnesia 30 Ml Oral.Susp) 30 ml PO DAILY PRN PRN Reason: Constipation Methocarbamol (Methocarbamol 500 Mg Tablet) 500 mg PO TID [facility] Last Admin: 04/24/25 21:17 Dose: 500 mg Modafinil (Modafinil 100 Mg Tablet) 100 mg PO DAILY [facility] Last Admin: 04/24/25 08:50 Dose: 100 mg Multivitamins/Vitamin C (Multivitamin Tablet) 1 tab PO DAILY [facility] Last Admin: 04/24/25 08:50 Dose: 1 tab Naloxone HCl (Naloxone Hcl 0.4 Mg/Ml Vial) 0.04 mg IVPUSH Q5M PRN PRN Reason: Excessive sedation or RR < 8 Naltrexone HCl (Naltrexone Hcl 50 Mg Tablet) 50 mg PO DAILY [facility] Last Admin: 04/24/25 08:50 Dose: 50 mg Nicotine Polacrilex (Nicotine Polacrilex 2 Mg Gum) 4 mg BUCCAL Q2H PRN PRN Reason: Nicotine Cravings Omeprazole (Omeprazole 20 Mg Capsule.Dr) 20 mg PO BEDTIME [facility] Last Admin: 04/24/25 21:17 Dose: 20 mg Quetiapine Fumarate (Quetiapine Fumarate 25 Mg Tablet) 25 mg PO TID PRN PRN Reason: breakthrough anxiety Last Admin: 04/24/25 21:17 Dose: 25 mg Thiamine HCl (Thiamine Hcl 100 Mg Tablet) 100 mg PO DAILY [facility] Last Admin: 04/24/25 08:50 Dose: 100 mg Topiramate (Topiramate 25 Mg Tablet) 50 mg PO BEDTIME [facility] Last Admin: 04/24/25 21:19 Dose: Not Given Trazodone HCl (Trazodone Hcl 100 Mg Tablet) 100 mg PO BEDTIME [facility] Last Admin: 04/24/25 21:17 Dose: 100 mg Trazodone HCl (Trazodone Hcl 50 Mg Tablet) 50 mg PO BEDTIME PRN PRN Reason: Insomnia Last Admin: 04/21/25 21:48 Dose: 50 mg Allergies Allergies Allergy/AdvReac Type Severity Reaction Status Date / Time No Known Allergies Allergy Verified 04/01/25 12:28 Assessment & Plan Assessment & Plan (1) Major depressive disorder, recurrent severe without psychotic features: Status: Acute Code(s): F33.2 - Major depressive disorder, recurrent severe without psychotic features (2) Hypertriglyceridemia: Status: Acute Code(s): E78.1 - Pure hyperglyceridemia Plan PLAN: 64-year-old male with medical history of hypertension, type 2 diabetes, hyperlipidemia, compression fracture of L1, and psychiatric history of major depressive disorder, anxiety, and suicidal ideation, presented to [facility] on 04/01/2025 for worsening depression, SI, and a fall. Imaging were unrevealing. He was transferred to the ICU for treatment of metabolic syndrome. He endorsed SI before his discharge from the medical unit and therefore was transferred to yesterday. On interview with this provider, patient states that the reason for his psychiatric admission is suicide ideation and severe depression. He reports severe depression on/off, mostly on for the past several years. He feels hopeless, helpless, and worthless. He lacks interest to do things and has low energy. His symptoms are usually well controlled while on medication. However, he relapsed on drinking alcohol 3 weeks ago and stopped taking his psychotropic medications. He was drinking 5 or more nips daily. Prior to his recent relapse, he was sober for 2 years. He admits that his drinking may have worsened his depressive symptoms. He states that he stopped taking his medications because I didn't care anymore. He currently experiencing severe anxiety and depression. Regarding question about suicide ideation, he states that he does not have a plan, but if I went to sleep, I don't care if don't wake up. He denies hypomania or kaveh episodes. He denies HI/AVH. He reports severe left-sided low back pain which started after he fell the day before he presented to [facility]. CT abdomen/pelvis revealed acute to subacute superior endplate compression fracture at L1. His goal for this hospitalization is that I want to feel better about myself, and to get back on his medications. Formulation/Clinical reasoning: Patient has chronic anxiety and depression symptoms which worsened in the past 3 weeks when he stopped taking his psychotropic medications and relapsed on alcohol. His symptoms are well controlled on medications. Will continue current treatment regimen and make adjustment as needed. If he fails to respond to treatment, ECT may be ideal since it was effective in the past. Referred to addiction medicine. Lidocaine patch ordered and PT referral made for back pain. 04/10: Patient continues to be severely anxious and depressed. He also continues to experience intermittent left-sided low back pain. No SI/HI/AVH. Continue current treatment regimen. Encourage groups and to engage in physical therapy. Patient may receive inpatient ECT if he does not improve. Verbalized understanding and agreed with the plan. 04/11: Continue tx ECT consult Encourage milieu Right foot/ankle xrays 04/12 Patient says that his mood is better but he remains very anxious. Discussed options and patient agrees to trying Seroquel p.r.n. after reviewing risks/side effects of antipsychotics. 04/14: The depression is somewhat less. Anxiety is high Reports anergy as well I will do what I need to to feel better. Reviewed in team with Dr. May and Dr. Jacob. Dr. May met with pt and ECT will begin on 04/21. Denies SI,HI,AH,VH, SIBS Reports an increase of sleep and intact appetite. Pt asks to return to a regular diet as he reports poor choices on diabetic regime. Also asks that he not receive a safety tray. Intermittent group attendance Over the weekend Clonidine ordered prn along with Seroquel prn and Lidocaine Patch for pain. No new medical/diagnostic results. Plan: Provigil trial. 04/15: Pt reports Provigil has helped this a.m. Pt agrees to ECT trial and will attend milieu groups and will agree to CSS post discharge when ECT is completed. Today, discussed antidepressant trials. Identifies Venlafaxine as most helpful by history. Discussed this, along with Cymbalta with some benefits for pain mgt. Pt would like to trial Cymbalta. Attending groups this afternoon. Plan: Cymbalta 20 mg daily 04/16: Team reports pt slept last evening. He received medical clearance for ECT today Tolerating Cymbalta, Provigil. Will begin Lexapro tapering to 15 mg this evening Not attending groups Rates anxiety/depressive sx 8 today. 04/17/25: Meet with patient in assigned room, report no issues with appetite or sleep. Report anxiety an 8/10 and depression a 7/10. He eats breakfast in room. Denies alcohol craving. Report he went to a group yesterday. Denies SI/SIB/HI/AVH Per nursing, meds compliant, slept for 7 hours, compliant with meds, no side effect. mostly isolated to self in room. Constricted affect.Continue to encourage group participation. 04/18/25: Pt denies SI,HI,AH,VH He is attending some groups He is visable today in the milieu. He has informed his he as a fracture in his back and is unsure of tx plan. called pt's social welfare research worker to clarify. This was diagnosed when pt was on medicine, having a abdominal diagnostic. On 04/01 abdominal films for pancreatitis were completed. Compression Fx found on L1. STR was suggested by PT when discharged with no further recs when transferred to M5. Nehemias Fuller of PT has been following pt on M5 with exercises, stretching and observation with ambulation. He will need OP PT upon DC. Pt is anxious, apprehensive regarding ECT, however believes this is the appropriate thing to do. Discussed Cymbalta titration to 30 mg and decrease of Escitalopram to 10 mg which he agrees with. 04/19/25: Met with patient in group room A where patient spent time after breakfast watching TV. Reports anxiety 7, and depression is 6/10. Reported that he went to 1 group yesterday. Per nursing, patient slept for 7 hours, compliant with medications. Denies side effects but reports some hand tremors which be from medication or from chronic alcohol abuse. We will continue to monitor. No SI/SIB/HI/AVH. Per ECT consult provider note: Patient has not had ongoing stability from depression for an extended period of time. 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 He did respond to a course of ECT in December and did speak with the patient at the only way that I would recommend another course of ECT at this time would be if the patient will willing to do aggressive treatment including possibility if residential sober home and show a commitment to sobriety otherwise his default appears to be to going back to drinking which also has involved not taking responsibility lack of honesty at times in what he is doing in unless he could commit to this that it would be very hard to achieve any stability. Patient appeared to understand this and patient wish strongly to go forward with ECT as he felt it had been quite helpful and agreed with the above provisions also discussed with the patient the ongoing in potentially severe medical consequences of his chronic alcohol use 04/20/25: Meet with patient in room where he is eating lunch. Report that he does not want to eat and be around with people. Denies sleeping or eating appetite uses. Continue report moderate to severe anxiety of a 7/10 and depression a 6/10. Denies SI/SIB/HI/AVH. Does not have alcohol craving at this moment. Flat/constricted affect. He is looking forward to having ECT tomorrow which he was told by his primary attending. Can observed him sometimes in dinning area but keep to self, not talk to anyone unless approach. Able to make needs known. Per nursing, patient slept for 8 hours, denies side effects from medications. Report to nursing staff with same anixety and depression level. Consistent with report. Continue with current plan. Nursing staff to prapare patient for ECT per protocol. 04/21/25: First ECT treatment today which was delayed until this afternoon. Got back from procedure, denies side effects. Denies BRAXTON but feel a little bit tired. Report anxiety and depression as moderate. No behavior issues. Resting in bed after ECT. Encourage groups when able to/ tolerated. Denies SI/SIB/HI/AVH. Flat affect. Continue with current plan. Lipid profile: elevated. 04/22/25:Trever reports his first ECT went well and he is looking forward to continuing the series. No adverse effects reported from cross taper from Escitalopram to Duloxetine, will continue that this evening. Pt reports he is attending some groups, today, however, he is resting in bed (no groups currently occurring, however he does have a list on his bedside table). Denies SI, HI,AH, VH. Plan: Continue tx 04/23/25: ECT Treatment #2. Attending groups, Resting this afternoon, tired after the treatment. Denies SI,HI,AH,VH. I am trying . Team attempting to assist pt to be more engaged and active when in group. Continue tx. 04/24/25: Continue tx. 04/25/25: Continue tx. Plan ECT #1: 04/21/25. Admit to M5. CV 15 minutes check. -Add Seroquel 25 mg p.r.n. for anxiety Diagnostics as needed. Collateral contact. Continue remainder of regime. Encouraged full milieu. Discharge planning. Reason for continued inpatient stay Substantial Risk for: rapid decompensation Time Spent With Patient Time: Total time managing care of this patient today ____ minutes.
--- NOTE | 2025-04-25 11:20 | MHC.SHP ---
Pre-Procedural Eval Section A - 24 Hr Update-Section A only Date of Service: 04/25/25 The patient is an INPATIENT: Yes Changes since office visit: No Cold of Flu in the past 2 weeks, No New Medical Problems, No Changes in Medication and No Patient answered all questions The patient has been examined within 24 hours of the surgical procedure. The History & Physical has been completed within 30 days and I have reviewed it.: Yes Section B - Complete if H&P > 30 days Chief Complaint: recurrent major depression, alcohol use disorder Allergies: Allergies Allergy/AdvReac Type Severity Reaction Status Date / Time No Known Allergies Allergy Verified 04/01/25 12:28 Plan Diagnosis/Plan: Unchanged I have reviewed the history and physical and performed a pertinent physical examination on my patient. No changes have occurred unless specified. Time Spent With Patient Time: Total time managing care of this patient today ____ minutes.
--- NOTE | 2025-04-25 11:22 | HO.ECTPROC ---
ECT Procedure Note Diagnosis/Treatment Date of Service: 04/25/25 Diagnosis: Major Depressive Disorder Previous ECT Date: 04/23/25 Current Treatment Number: 3 Treatment: Series Interval Clinical Notes: Pt reports that his mood is improving. Denies any issues with last tx. LMA bite block used in addition to LMA to protect teeth Time: Total time managing care of this patient today ____ minutes. ECT Settings Device: THYMATRON DGx Electrode Placement: Right Unilateral Program/Pulse Width: 0.50 Energy Percent: 100 Seizure Duration By EEG (in seconds): 46 By Motor Observation (in seconds): 36 Medications Administration General Anesthetic: Etomidate (18) Muscle Relaxant: Succinylcholine (180) Ancillary Medications Cardiovascular Medications: Glycopyrrolate (0.2 pre-tx) Miscillaneous Medications: Midazolam (2 mg post-tx) Airway Management Airway Management: LMA Treatment Recommendations No Changes Recommended: No change Pt Tolerated Procedure w/o Issue: Yes
--- NOTE | 2025-04-25 12:57 | HO.ANESPROP2 ---
HPI - Anesthesia Eval Consult details Narrative: ECT PMFSH Active Problems Active Problems: All Active Problems Alcoholic liver disease (Acute) Major depressive disorder, recurrent severe without psychotic features (Acute) Hypertriglyceridemia (Acute) Low back pain (Acute) Anxiety (Acute) Suicidal ideation (Acute) Fatigue (Acute) Past Medical History Medical History Alcoholic liver disease Major depressive disorder, recurrent severe without psychotic features Hypertriglyceridemia Fracture of nasal bone Alcohol use disorder Fatigue Family History Family history of problems with anesthesia: No Surgical History History of Problems with Anesthesia: No Social History Social History Household Members: Spouse Housing: House Do you presently have visiting nurse or other home services: No Alcohol intake: current Alcohol intake frequency: 3 or more drinks per day Alcohol type: hard liquor Comment: PT Consult ordered Patient Tobacco Use Status: Never used Tobacco Currently Displaying Signs/Symptoms of Drug Intoxication Withdrawal: No Have you been hit, kicked, punched, or otherwise hurt by someone within the past year? If so, by whom?: No Do you feel safe in your current relationship?: Yes Is there a partner from a previous relationship who is making you feel unsafe now?: No Are you made to feel afraid or neglected: No Spiritual Healthcare Practices: Uatsdin Are you DNR?: No Advance Directives: Yes Advance Directives Information Provided: No Advance Directives on File: Yes Advance Directives Date on File: 04/02/25 Do you have thoughts of harming others: None Do you have a plan to hurt others: No Plan Recently lost weight without trying: No Eating poorly because of decreased appetite: No Nutrition Risks: No Nutritional Risk Poor oral hygiene: No service: No Sexual orientation: Straight/Heterosexual Meds Allergies Allergy/AdvReac Type Severity Reaction Status Date / Time No Known Allergies Allergy Verified 04/01/25 12:28 Active Medications: Current Medications Acetaminophen (Acetaminophen 325 Mg Tablet) 650 mg PO Q6H PRN PRN Reason: Headache/Pain, Scale 1-10 Last Admin: 04/11/25 20:40 Dose: 650 mg Al Hydroxide/Mg Hydroxide (Magnesium Hydrox/Alum Hydrox 30 Ml Oral.Susp) 30 ml PO Q6H PRN PRN Reason: Heartburn/Nausea Amlodipine Besylate (Amlodipine Besylate 10 Mg Tablet) 10 mg PO DAILY [facility]; Protocol Last Admin: 04/24/25 08:50 Dose: 10 mg Atorvastatin Calcium (Atorvastatin Calcium 80 Mg Tablet) 80 mg PO DAILY [facility] Last Admin: 04/24/25 08:50 Dose: 80 mg Clonidine HCl (Clonidine Hcl 0.1 Mg Tablet) 0.1 mg PO Q4H PRN; Protocol PRN Reason: severe anxiety Last Admin: 04/24/25 21:23 Dose: 0.1 mg Duloxetine HCl (Duloxetine Hcl 20 Mg Capsule.Dr) 40 mg PO DAILY [facility] Last Admin: 04/24/25 08:50 Dose: 40 mg Ezetimibe (Ezetimibe 10 Mg Tablet) 10 mg PO DAILY [facility] Last Admin: 04/24/25 08:49 Dose: 10 mg Escitalopram Oxalate (Escitalopram Oxalate 5 Mg Tablet) 5 mg PO BEDTIME [facility] Stop: 04/26/25 22:00 Last Admin: 04/24/25 21:17 Dose: 5 mg Fenofibrate (Fenofibrate 160 Mg Tablet) 160 mg PO DAILY [facility] Last Admin: 04/24/25 08:50 Dose: 160 mg Folic Acid (Folic Acid 1 Mg Tablet) 1 mg PO DAILY [facility] Last Admin: 04/24/25 08:50 Dose: 1 mg Hydroxyzine HCl (Hydroxyzine Hcl 50 Mg Tablet) 50 mg PO Q6H PRN PRN Reason: mild anxiety Last Admin: 04/24/25 21:17 Dose: 50 mg Lidocaine (Lidocaine 4 % Patch Adh..Patch) 0.5 patch TRANSDERMA DAILY PRN; Protocol PRN Reason: back pain Lurasidone HCl (Lurasidone Hcl 80 Mg Tablet) 80 mg PO 1700 [facility] Last Admin: 04/24/25 17:25 Dose: 80 mg Magnesium Hydroxide (Milk Of Magnesia 30 Ml Oral.Susp) 30 ml PO DAILY PRN PRN Reason: Constipation Methocarbamol (Methocarbamol 500 Mg Tablet) 500 mg PO TID [facility] Last Admin: 04/24/25 21:17 Dose: 500 mg Modafinil (Modafinil 100 Mg Tablet) 100 mg PO DAILY [facility] Last Admin: 04/24/25 08:50 Dose: 100 mg Multivitamins/Vitamin C (Multivitamin Tablet) 1 tab PO DAILY [facility] Last Admin: 04/24/25 08:50 Dose: 1 tab Naloxone HCl (Naloxone Hcl 0.4 Mg/Ml Vial) 0.04 mg IVPUSH Q5M PRN PRN Reason: Excessive sedation or RR < 8 Naltrexone HCl (Naltrexone Hcl 50 Mg Tablet) 50 mg PO DAILY [facility] Last Admin: 04/24/25 08:50 Dose: 50 mg Nicotine Polacrilex (Nicotine Polacrilex 2 Mg Gum) 4 mg BUCCAL Q2H PRN PRN Reason: Nicotine Cravings Omeprazole (Omeprazole 20 Mg Capsule.Dr) 20 mg PO BEDTIME [facility] Last Admin: 04/24/25 21:17 Dose: 20 mg Quetiapine Fumarate (Quetiapine Fumarate 25 Mg Tablet) 25 mg PO TID PRN PRN Reason: breakthrough anxiety Last Admin: 04/24/25 21:17 Dose: 25 mg Thiamine HCl (Thiamine Hcl 100 Mg Tablet) 100 mg PO DAILY [facility] Last Admin: 04/24/25 08:50 Dose: 100 mg Topiramate (Topiramate 25 Mg Tablet) 50 mg PO BEDTIME [facility] Last Admin: 04/24/25 21:19 Dose: Not Given Trazodone HCl (Trazodone Hcl 100 Mg Tablet) 100 mg PO BEDTIME [facility] Last Admin: 04/24/25 21:17 Dose: 100 mg Trazodone HCl (Trazodone Hcl 50 Mg Tablet) 50 mg PO BEDTIME PRN PRN Reason: Insomnia Last Admin: 04/21/25 21:48 Dose: 50 mg Home Medications ?Medication ?Instructions ?Recorded ?Confirmed ?Last Taken ?Type ezetimibe 10 mg tablet (Zetia) 10 mg PO DAILY 12/19/24 04/08/25 03/23/25 History omega-3 acid ethyl esters 1 gram 2 cap PO BID 12/19/24 04/08/25 03/23/25 History capsule rosuvastatin 20 mg tablet 20 mg PO DAILY 12/19/24 04/08/25 03/23/25 History amlodipine 10 mg tablet 10 mg PO DAILY 01/31/25 04/08/25 03/23/25 History fenofibrate 160 mg tablet 160 mg PO DAILY 01/31/25 04/08/25 03/23/25 History [id number] 300 mcg-K 60 1 tab PO DAILY 01/31/25 04/08/25 03/23/25 History mcg-lycop 600 mcg-lutein 300 mcg tablet (Centrum Silver Men) topiramate 50 mg tablet 50 mg PO BEDTIME 01/31/25 04/08/25 03/23/25 History trazodone 100 mg tablet 100 mg PO BEDTIME insomnia 04/02/25 04/08/25 03/23/25 History Exam Height,Weight and Vital Signs: Height 5 ft 9 in Weight 112.7 kg Last Vital Signs Temp 97.0 F 04/25/25 12:45 Pulse 81 04/25/25 12:45 Resp 16 04/25/25 12:45 BP 132/72 04/25/25 12:45 Pulse Ox 95 04/25/25 12:45 O2 Del Method Room Air 04/25/25 12:45 O2 Flow Rate 4 04/21/25 14:25 Pertinent Lab Results Pertinent Lab Results: Laboratory Tests 04/10/25 04/21/25 07:56 09:08 Estimat Average Glucose 111 Hemoglobin A1c % 5.5 Magnesium 1.7 Total Bilirubin 0.5 Direct Bilirubin 0.2 AST 34 ALT 31 Alkaline Phosphatase 77 Ammonia 20 Total Protein 6.7 Albumin 4.1 Triglycerides 1009 H 380 H Cholesterol 253 H 158 LDL Cholesterol, Calc TNP 54 HDL Cholesterol 27 L 28 L Vitamin B12 504 Folate 14.7 TSH 4.62 H Free T4 0.83 Airway Mallampati Class: III TM Dist: <=3cm Neck ROM: Full Heart: rrr Lungs: cta Assessment and Plan Assessment Anesthesia Assessment: Anesthesia Plan Discussed and Chart Reviewed Final Anesthetic Review Family History of Problems with Anesthesia: No History of Problems with Anesthesia: No NPO: Yes ASA Class: III Final Preanesthetic Review: No Changes in Pt Med Stat, Meds/Allgs Chart Reviewed, Consent Obtained/Reviewed and Anes Risks/Benef Reviewed Patient Risk: Intermediate Procedure Risk: Low Anesthetic Plan Anesthetic Plan: GA and Agree w/ Assess. and Plan Disposition: Standard PACU
[2025-04-26 08:30] VITALS: BP 119/66; PULSE 75; RESP 18; TEMP 36.8; O2SAT 96
--- NOTE | 2025-04-26 10:16 | P.PNPSI_ITS ---
Subjective Subjective Date of Service: 04/26/25 Reason For Visit: recurrent major depression, alcohol use disorder Subjective Notes: Conditional Voluntary Healthcare Proxy: No Guardianship: No Medical Problems Affecting Mental Status: No Interim History: Reviewed with team and reviewed plan of care. Team reports minimal improvement with ECT #3 Met with pt who appears brighter and who is up and about the unit this a.m. This afternoon, pt is in bed, reporting post ECT headache has not really resolved from 04/25, however, he feels the depression is decreasing. Ibuprofen ordered prn for headache. Medication Compliance: Yes Side effects from medications: No Attending Groups: Yes Review of Systems Acute medical concerns: No Medical Review of Systems: unchanged Review of Systems Review of Systems headache Mental Status Exam Mental Status Exam Patient Appearance: Appropriate Patient Orientation: Person, Place, Time and Situation Level of Consciousness: Alert Patient Behavior: Talkative and Good Eye Contact Mood Description: Flat Affect Description: Flat Patient Cognition Impaired: No Ability to Follow Directions: Good Speech Pattern: Spontaneous Speech Memory Description: Episodic Impaired Hallucinations: None Delusions: Not Present Thought Process: Goal Oriented Thought Content: positive for Goal Oriented and positive for Suicidal Ideation (denies) Depressive Symptoms: Thoughts of /Suicide (denies) Judgement: Fair Diagnostics Vital Signs (24Hr): Vital Signs - 24 hr 04/25/25 12:45 04/25/25 13:52 04/25/25 13:55 Temperature 97.0 F 98.1 F Pulse Rate 81 70 85 Respiratory Rate 16 16 16 Blood Pressure 132/72 154/64 H 132/76 Pulse Oximetry 95 98 98 Oxygen Delivery Method Room Air Simple Mask Simple Mask Oxygen Flow Rate 10 10 04/25/25 14:00 04/25/25 14:05 04/25/25 14:15 Temperature Pulse Rate 86 94 100 Respiratory Rate 16 16 16 Blood Pressure 121/63 140/79 H 97/75 Pulse Oximetry 98 98 98 Oxygen Delivery Method Simple Mask Simple Mask Simple Mask Oxygen Flow Rate 10 10 10 04/25/25 14:30 04/25/25 14:45 04/25/25 15:43 Temperature 98.1 F Pulse Rate 88 94 Respiratory Rate 16 17 Blood Pressure 135/62 127/78 137/68 Pulse Oximetry 97 98 Oxygen Delivery Method Simple Mask Room Air Oxygen Flow Rate 04/25/25 20:00 04/26/25 08:30 Temperature 98.8 F 98.3 F Pulse Rate 93 75 Respiratory Rate 18 18 Blood Pressure 118/70 119/66 Pulse Oximetry 99 96 Oxygen Delivery Method Room Air Room Air Oxygen Flow Rate BMI result Body Mass Index 36.7 Imaging Radiology Impressions: ITS Impressions Ankle X-Ray 04/11/25 13:50 IMPRESSION: Status post tibiotalar arthroplasty. Degenerative changes as described. Electronically signed by: Jony Olivas MD 04/11/2025 01:59 PM EST RP Foot X-Ray 04/11/25 13:51 IMPRESSION: Status post tibiotalar arthroplasty. Degenerative changes as described. Electronically signed by: Jony Olivas MD 04/11/2025 01:59 PM EST RP Medications Medications Current Medications Acetaminophen (Acetaminophen 325 Mg Tablet) 650 mg PO Q6H PRN PRN Reason: Headache/Pain, Scale 1-10 Last Admin: 04/11/25 20:40 Dose: 650 mg Al Hydroxide/Mg Hydroxide (Magnesium Hydrox/Alum Hydrox 30 Ml Oral.Susp) 30 ml PO Q6H PRN PRN Reason: Heartburn/Nausea Amlodipine Besylate (Amlodipine Besylate 10 Mg Tablet) 10 mg PO DAILY [facility]; Protocol Last Admin: 04/26/25 09:26 Dose: 10 mg Atorvastatin Calcium (Atorvastatin Calcium 80 Mg Tablet) 80 mg PO DAILY [facility] Last Admin: 04/26/25 09:26 Dose: 80 mg Clonidine HCl (Clonidine Hcl 0.1 Mg Tablet) 0.1 mg PO Q4H PRN; Protocol PRN Reason: severe anxiety Last Admin: 04/25/25 21:04 Dose: 0.1 mg Duloxetine HCl (Duloxetine Hcl 20 Mg Capsule.Dr) 40 mg PO DAILY [facility] Last Admin: 04/26/25 09:26 Dose: 40 mg Ezetimibe (Ezetimibe 10 Mg Tablet) 10 mg PO DAILY [facility] Last Admin: 04/26/25 09:26 Dose: 10 mg Escitalopram Oxalate (Escitalopram Oxalate 5 Mg Tablet) 5 mg PO BEDTIME [facility] Stop: 04/26/25 22:00 Last Admin: 04/25/25 21:04 Dose: 5 mg Fenofibrate (Fenofibrate 160 Mg Tablet) 160 mg PO DAILY [facility] Last Admin: 04/26/25 09:26 Dose: 160 mg Folic Acid (Folic Acid 1 Mg Tablet) 1 mg PO DAILY [facility] Last Admin: 04/26/25 09:26 Dose: 1 mg Hydroxyzine HCl (Hydroxyzine Hcl 50 Mg Tablet) 50 mg PO Q6H PRN PRN Reason: mild anxiety Last Admin: 04/25/25 21:04 Dose: 50 mg Lidocaine (Lidocaine 4 % Patch Adh..Patch) 0.5 patch TRANSDERMA DAILY PRN; Protocol PRN Reason: back pain Lurasidone HCl (Lurasidone Hcl 80 Mg Tablet) 80 mg PO 1700 [facility] Last Admin: 04/25/25 18:03 Dose: 80 mg Magnesium Hydroxide (Milk Of Magnesia 30 Ml Oral.Susp) 30 ml PO DAILY PRN PRN Reason: Constipation Methocarbamol (Methocarbamol 500 Mg Tablet) 500 mg PO TID [facility] Last Admin: 04/26/25 09:26 Dose: 500 mg Modafinil (Modafinil 100 Mg Tablet) 100 mg PO DAILY [facility] Last Admin: 04/26/25 09:26 Dose: 100 mg Multivitamins/Vitamin C (Multivitamin Tablet) 1 tab PO DAILY [facility] Last Admin: 04/26/25 09:26 Dose: 1 tab Naloxone HCl (Naloxone Hcl 0.4 Mg/Ml Vial) 0.04 mg IVPUSH Q5M PRN PRN Reason: Excessive sedation or RR < 8 Naloxone HCl (Naloxone Hcl 0.4 Mg/Ml Vial) 0.04 mg IVPUSH Q5M PRN PRN Reason: Excessive sedation or RR < 8 Naltrexone HCl (Naltrexone Hcl 50 Mg Tablet) 50 mg PO DAILY [facility] Last Admin: 04/26/25 09:26 Dose: 50 mg Nicotine Polacrilex (Nicotine Polacrilex 2 Mg Gum) 4 mg BUCCAL Q2H PRN PRN Reason: Nicotine Cravings Omeprazole (Omeprazole 20 Mg Capsule.Dr) 20 mg PO BEDTIME [facility] Last Admin: 04/25/25 21:04 Dose: 20 mg Quetiapine Fumarate (Quetiapine Fumarate 25 Mg Tablet) 25 mg PO TID PRN PRN Reason: breakthrough anxiety Last Admin: 04/25/25 21:04 Dose: 25 mg Thiamine HCl (Thiamine Hcl 100 Mg Tablet) 100 mg PO DAILY [facility] Last Admin: 04/26/25 09:26 Dose: 100 mg Topiramate (Topiramate 25 Mg Tablet) 50 mg PO BEDTIME [facility] Last Admin: 04/25/25 21:04 Dose: 50 mg Trazodone HCl (Trazodone Hcl 100 Mg Tablet) 100 mg PO BEDTIME [facility] Last Admin: 04/25/25 21:04 Dose: 100 mg Trazodone HCl (Trazodone Hcl 50 Mg Tablet) 50 mg PO BEDTIME PRN PRN Reason: Insomnia Last Admin: 04/21/25 21:48 Dose: 50 mg Allergies Allergies Allergy/AdvReac Type Severity Reaction Status Date / Time No Known Allergies Allergy Verified 04/01/25 12:28 Assessment & Plan Assessment & Plan (1) Major depressive disorder, recurrent severe without psychotic features: Status: Acute Code(s): F33.2 - Major depressive disorder, recurrent severe without psychotic features (2) Hypertriglyceridemia: Status: Acute Code(s): E78.1 - Pure hyperglyceridemia Plan PLAN: 64-year-old male with medical history of hypertension, type 2 diabetes, hyperlipidemia, compression fracture of L1, and psychiatric history of major depressive disorder, anxiety, and suicidal ideation, presented to [facility] on 04/01/2025 for worsening depression, SI, and a fall. Imaging were unrevealing. He was transferred to the ICU for treatment of metabolic syndrome. He endorsed SI before his discharge from the medical unit and therefore was transferred to yesterday. On interview with this provider, patient states that the reason for his psychiatric admission is suicide ideation and severe depression. He reports severe depression on/off, mostly on for the past several years. He feels hopeless, helpless, and worthless. He lacks interest to do things and has low energy. His symptoms are usually well controlled while on medication. However, he relapsed on drinking alcohol 3 weeks ago and stopped taking his psychotropic medications. He was drinking 5 or more nips daily. Prior to his recent relapse, he was sober for 2 years. He admits that his drinking may have worsened his depressive symptoms. He states that he stopped taking his medications because I didn't care anymore. He currently experiencing severe anxiety and depression. Regarding question about suicide ideation, he states that he does not have a plan, but if I went to sleep, I don't care if don't wake up. He denies hypomania or kaveh episodes. He denies HI/AVH. He reports severe left-sided low back pain which started after he fell the day before he presented to [facility]. CT abdomen/pelvis revealed acute to subacute superior endplate compression fracture at L1. His goal for this hospitalization is that I want to feel better about myself, and to get back on his medications. Formulation/Clinical reasoning: Patient has chronic anxiety and depression symptoms which worsened in the past 3 weeks when he stopped taking his psychotropic medications and relapsed on alcohol. His symptoms are well controlled on medications. Will continue current treatment regimen and make adjustment as needed. If he fails to respond to treatment, ECT may be ideal since it was effective in the past. Referred to addiction medicine. Lidocaine patch ordered and PT referral made for back pain. 04/10: Patient continues to be severely anxious and depressed. He also continues to experience intermittent left-sided low back pain. No SI/HI/AVH. Continue current treatment regimen. Encourage groups and to engage in physical therapy. Patient may receive inpatient ECT if he does not improve. Verbalized understanding and agreed with the plan. 04/11: Continue tx ECT consult Encourage milieu Right foot/ankle xrays 04/12 Patient says that his mood is better but he remains very anxious. Discussed options and patient agrees to trying Seroquel p.r.n. after reviewing risks/side effects of antipsychotics. 04/14: The depression is somewhat less. Anxiety is high Reports anergy as well I will do what I need to to feel better. Reviewed in team with Dr. May and Dr. Jacob. Dr. May met with pt and ECT will begin on 04/21. Denies SI,HI,AH,VH, SIBS Reports an increase of sleep and intact appetite. Pt asks to return to a regular diet as he reports poor choices on diabetic regime. Also asks that he not receive a safety tray. Intermittent group attendance Over the weekend Clonidine ordered prn along with Seroquel prn and Lidocaine Patch for pain. No new medical/diagnostic results. Plan: Provigil trial. 04/15: Pt reports Provigil has helped this a.m. Pt agrees to ECT trial and will attend milieu groups and will agree to CSS post discharge when ECT is completed. Today, discussed antidepressant trials. Identifies Venlafaxine as most helpful by history. Discussed this, along with Cymbalta with some benefits for pain mgt. Pt would like to trial Cymbalta. Attending groups this afternoon. Plan: Cymbalta 20 mg daily 04/16: Team reports pt slept last evening. He received medical clearance for ECT today Tolerating Cymbalta, Provigil. Will begin Lexapro tapering to 15 mg this evening Not attending groups Rates anxiety/depressive sx 8 today. 04/17/25: Meet with patient in assigned room, report no issues with appetite or sleep. Report anxiety an 8/10 and depression a 7/10. He eats breakfast in room. Denies alcohol craving. Report he went to a group yesterday. Denies SI/SIB/HI/AVH Per nursing, meds compliant, slept for 7 hours, compliant with meds, no side effect. mostly isolated to self in room. Constricted affect.Continue to encourage group participation. 04/18/25: Pt denies SI,HI,AH,VH He is attending some groups He is visable today in the milieu. He has informed his he as a fracture in his back and is unsure of tx plan. called pt's social secretary to clarify. This was diagnosed when pt was on medicine, having a abdominal diagnostic. On 04/01 abdominal films for pancreatitis were completed. Compression Fx found on L1. STR was suggested by PT when discharged with no further recs when transferred to M5. Nehemias Fuller of PT has been following pt on M5 with exercises, stretching and observation with ambulation. He will need OP PT upon DC. Pt is anxious, apprehensive regarding ECT, however believes this is the appropriate thing to do. Discussed Cymbalta titration to 30 mg and decrease of Escitalopram to 10 mg which he agrees with. 04/19/25: Met with patient in group room A where patient spent time after breakfast watching TV. Reports anxiety 7, and depression is 6/10. Reported that he went to 1 group yesterday. Per nursing, patient slept for 7 hours, compliant with medications. Denies side effects but reports some hand tremors which be from medication or from chronic alcohol abuse. We will continue to monitor. No SI/SIB/HI/AVH. Per ECT consult provider note: Patient has not had ongoing stability from depression for an extended period of time. 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 He did respond to a course of ECT in December and did speak with the patient at the only way that I would recommend another course of ECT at this time would be if the patient will willing to do aggressive treatment including possibility if residential sober home and show a commitment to sobriety otherwise his default appears to be to going back to drinking which also has involved not taking responsibility lack of honesty at times in what he is doing in unless he could commit to this that it would be very hard to achieve any stability. Patient appeared to understand this and patient wish strongly to go forward with ECT as he felt it had been quite helpful and agreed with the above provisions also discussed with the patient the ongoing in potentially severe medical consequences of his chronic alcohol use 04/20/25: Meet with patient in room where he is eating lunch. Report that he does not want to eat and be around with people. Denies sleeping or eating appetite uses. Continue report moderate to severe anxiety of a 7/10 and depression a 6/10. Denies SI/SIB/HI/AVH. Does not have alcohol craving at this moment. Flat/constricted affect. He is looking forward to having ECT tomorrow which he was told by his primary attending. Can observed him sometimes in dinning area but keep to self, not talk to anyone unless approach. Able to make needs known. Per nursing, patient slept for 8 hours, denies side effects from medications. Report to nursing staff with same anixety and depression level. Consistent with report. Continue with current plan. Nursing staff to prapare patient for ECT per protocol. 04/21/25: First ECT treatment today which was delayed until this afternoon. Got back from procedure, denies side effects. Denies BRAXTON but feel a little bit tired. Report anxiety and depression as moderate. No behavior issues. Resting in bed after ECT. Encourage groups when able to/ tolerated. Denies SI/SIB/HI/AVH. Flat affect. Continue with current plan. Lipid profile: elevated. 04/22/25:Trever reports his first ECT went well and he is looking forward to continuing the series. No adverse effects reported from cross taper from Escitalopram to Duloxetine, will continue that this evening. Pt reports he is attending some groups, today, however, he is resting in bed (no groups currently occurring, however he does have a list on his bedside table). Denies SI, HI,AH, VH. Plan: Continue tx 12/3/25: ECT Treatment #2. Attending groups, Resting this afternoon, tired after the treatment. Denies SI,HI,AH,VH. I am trying . Team attempting to assist pt to be more engaged and active when in group. Continue tx. 04/24/25: Continue tx. 04/25/25: Continue tx. 04/26/25:Reviewed with team and reviewed plan of care. Team reports minimal improvement with ECT #3 Met with pt who appears brighter and who is up and about the unit this a.m. This afternoon, pt is in bed, reporting post ECT headache has not really resolve d from 04/25, however, he feels the depression is decreasing. Ibuprofen ordered prn for headache. Plan ECT #1: 04/21/25. Admit to M5. CV 15 minutes check. -Add Seroquel 25 mg p.r.n. for anxiety Diagnostics as needed. Collateral contact. Continue remainder of regime. Encouraged full milieu. Discharge planning. Reason for continued inpatient stay Substantial Risk for: rapid decompensation Time Spent With Patient Time: Total time managing care of this patient today ____ minutes.
[2025-04-26 19:54] VITALS: BP 110/59; PULSE 86; RESP 15; TEMP 36.7; O2SAT 97
--- NOTE | 2025-04-27 05:51 | P.PNPSI_ITS ---
Subjective Subjective Date of Service: 04/27/25 Reason For Visit: recurrent major depression, alcohol use disorder Subjective Notes: Conditional Voluntary Healthcare Proxy: No Guardianship: No Medical Problems Affecting Mental Status: No Interim History: ECT Treatment #4 scheduled for 04/28. Reports improvement in symptoms of anxiety and depression. Headache resolved from 04/26 with ibuprofen. Team reports they have observed more interaction from pt and a reported genuine belly laugh when in the milieu. Pt is in his room when seen. He is in bed, awake, alert, talking with his room-mate. He acknowledges feeling some relief. He has been in the milieu today- spending a brief time watching the game with peers. He has attended groups today. He appears brighter, more engaged, more initiative of discussion. Medication Compliance: Yes Side effects from medications: No Attending Groups: Yes Review of Systems Acute medical concerns: No Review of Systems Review of Systems denies today Mental Status Exam Mental Status Exam Patient Appearance: Appropriate Patient Orientation: Person, Place, Time and Situation Level of Consciousness: Alert Patient Behavior: Talkative and Good Eye Contact Mood Description: Calm Affect Description: Calm Patient Cognition Impaired: No Ability to Follow Directions: Good Speech Pattern: Spontaneous Speech Memory Description: Episodic Impaired Hallucinations: None Delusions: Not Present Thought Process: Slowed Thinking Thought Content: positive for [place] Depressive Symptoms: Increased Fatigue (at times) Judgement: Fair Diagnostics Vital Signs (24Hr): Vital Signs - 24 hr 04/26/25 08:30 04/26/25 19:54 Temperature 98.3 F 98.1 F Pulse Rate 75 86 Respiratory Rate 18 15 Blood Pressure 119/66 110/59 L Pulse Oximetry 96 97 Oxygen Delivery Method Room Air BMI result Body Mass Index 36.7 Imaging Radiology Impressions: ITS Impressions Ankle X-Ray 04/11/25 13:50 IMPRESSION: Status post tibiotalar arthroplasty. Degenerative changes as described. Electronically signed by: Jony Olivas MD 04/11/2025 01:59 PM EST RP Foot X-Ray 04/11/25 13:51 IMPRESSION: Status post tibiotalar arthroplasty. Degenerative changes as described. Electronically signed by: Jony Olivas MD 04/11/2025 01:59 PM EST RP Medications Medications Current Medications Acetaminophen (Acetaminophen 325 Mg Tablet) 650 mg PO Q6H PRN PRN Reason: Headache/Pain, Scale 1-10 Last Admin: 04/26/25 11:20 Dose: 650 mg Al Hydroxide/Mg Hydroxide (Magnesium Hydrox/Alum Hydrox 30 Ml Oral.Susp) 30 ml PO Q6H PRN PRN Reason: Heartburn/Nausea Amlodipine Besylate (Amlodipine Besylate 10 Mg Tablet) 10 mg PO DAILY COUNT INCLUDES THE [facility]; Protocol Last Admin: 04/26/25 09:26 Dose: 10 mg Atorvastatin Calcium (Atorvastatin Calcium 80 Mg Tablet) 80 mg PO DAILY COUNT INCLUDES THE [facility] Last Admin: 04/26/25 09:26 Dose: 80 mg Clonidine HCl (Clonidine Hcl 0.1 Mg Tablet) 0.1 mg PO Q4H PRN; Protocol PRN Reason: severe anxiety Last Admin: 04/25/25 21:04 Dose: 0.1 mg Duloxetine HCl (Duloxetine Hcl 20 Mg Capsule.Dr) 40 mg PO DAILY COUNT INCLUDES THE [facility] Last Admin: 04/26/25 09:26 Dose: 40 mg Ezetimibe (Ezetimibe 10 Mg Tablet) 10 mg PO DAILY COUNT INCLUDES THE [facility] Last Admin: 04/26/25 09:26 Dose: 10 mg Fenofibrate (Fenofibrate 160 Mg Tablet) 160 mg PO DAILY COUNT INCLUDES THE [facility] Last Admin: 04/26/25 09:26 Dose: 160 mg Folic Acid (Folic Acid 1 Mg Tablet) 1 mg PO DAILY COUNT INCLUDES THE [facility] Last Admin: 04/26/25 09:26 Dose: 1 mg Hydroxyzine HCl (Hydroxyzine Hcl 50 Mg Tablet) 50 mg PO Q6H PRN PRN Reason: mild anxiety Last Admin: 04/26/25 20:32 Dose: 50 mg Ibuprofen (Ibuprofen 800 Mg Tablet) 800 mg PO Q8H PRN PRN Reason: Headache/Pain, Scale 1-10 Lidocaine (Lidocaine 4 % Patch Adh..Patch) 0.5 patch TRANSDERMA DAILY PRN; Protocol PRN Reason: back pain Lurasidone HCl (Lurasidone Hcl 80 Mg Tablet) 80 mg PO 1700 COUNT INCLUDES THE [facility] Last Admin: 04/26/25 17:12 Dose: 80 mg Magnesium Hydroxide (Milk Of Magnesia 30 Ml Oral.Susp) 30 ml PO DAILY PRN PRN Reason: Constipation Methocarbamol (Methocarbamol 500 Mg Tablet) 500 mg PO TID COUNT INCLUDES THE [facility] Last Admin: 04/26/25 20:32 Dose: 500 mg Modafinil (Modafinil 100 Mg Tablet) 100 mg PO DAILY COUNT INCLUDES THE [facility] Last Admin: 04/26/25 09:26 Dose: 100 mg Multivitamins/Vitamin C (Multivitamin Tablet) 1 tab PO DAILY COUNT INCLUDES THE [facility] Last Admin: 04/26/25 09:26 Dose: 1 tab Naloxone HCl (Naloxone Hcl 0.4 Mg/Ml Vial) 0.04 mg IVPUSH Q5M PRN PRN Reason: Excessive sedation or RR < 8 Naloxone HCl (Naloxone Hcl 0.4 Mg/Ml Vial) 0.04 mg IVPUSH Q5M PRN PRN Reason: Excessive sedation or RR < 8 Naltrexone HCl (Naltrexone Hcl 50 Mg Tablet) 50 mg PO DAILY COUNT INCLUDES THE [facility] Last Admin: 04/26/25 09:26 Dose: 50 mg Nicotine Polacrilex (Nicotine Polacrilex 2 Mg Gum) 4 mg BUCCAL Q2H PRN PRN Reason: Nicotine Cravings Omeprazole (Omeprazole 20 Mg Capsule.Dr) 20 mg PO BEDTIME COUNT INCLUDES THE [facility] Last Admin: 04/26/25 20:33 Dose: 20 mg Quetiapine Fumarate (Quetiapine Fumarate 25 Mg Tablet) 25 mg PO TID PRN PRN Reason: breakthrough anxiety Last Admin: 04/26/25 20:33 Dose: 25 mg Thiamine HCl (Thiamine Hcl 100 Mg Tablet) 100 mg PO DAILY COUNT INCLUDES THE [facility] Last Admin: 04/26/25 09:26 Dose: 100 mg Topiramate (Topiramate 25 Mg Tablet) 50 mg PO BEDTIME COUNT INCLUDES THE [facility] Last Admin: 04/26/25 20:33 Dose: 50 mg Trazodone HCl (Trazodone Hcl 100 Mg Tablet) 100 mg PO BEDTIME COUNT INCLUDES THE [facility] Last Admin: 04/26/25 20:33 Dose: 100 mg Trazodone HCl (Trazodone Hcl 50 Mg Tablet) 50 mg PO BEDTIME PRN PRN Reason: Insomnia Last Admin: 04/21/25 21:48 Dose: 50 mg Allergies Allergies Allergy/AdvReac Type Severity Reaction Status Date / Time No Known Allergies Allergy Verified 04/01/25 12:28 Assessment & Plan Assessment & Plan (1) Major depressive disorder, recurrent severe without psychotic features: Status: Acute Code(s): F33.2 - Major depressive disorder, recurrent severe without psychotic features (2) Hypertriglyceridemia: Status: Acute Code(s): E78.1 - Pure hyperglyceridemia Plan PLAN: 64-year-old male with medical history of hypertension, type 2 diabetes, hyperlipidemia, compression fracture of L1, and psychiatric history of major depressive disorder, anxiety, and suicidal ideation, presented to [facility] on 04/01/2025 for worsening depression, SI, and a fall. Imaging were unrevealing. He was transferred to the ICU for treatment of metabolic syndrome. He endorsed SI before his discharge from the medical unit and therefore was transferred to yesterday. On interview with this provider, patient states that the reason for his psychiatric admission is suicide ideation and severe depression. He reports severe depression on/off, mostly on for the past several years. He feels hopeless, helpless, and worthless. He lacks interest to do things and has low energy. His symptoms are usually well controlled while on medication. However, he relapsed on drinking alcohol 3 weeks ago and stopped taking his psychotropic medications. He was drinking 5 or more nips daily. Prior to his recent relapse, he was sober for 2 years. He admits that his drinking may have worsened his depressive symptoms. He states that he stopped taking his medications because I didn't care anymore. He currently experiencing severe anxiety and depression. Regarding question about suicide ideation, he states that he does not have a plan, but if I went to sleep, I don't care if don't wake up. He denies hypomania or kaveh episodes. He denies HI/AVH. He reports severe left-sided low back pain which started after he fell the day before he presented to [facility]. CT abdomen/pelvis revealed acute to subacute superior endplate compression fracture at L1. His goal for this hospitalization is that I want to feel better about myself, and to get back on his medications. Formulation/Clinical reasoning: Patient has chronic anxiety and depression symptoms which worsened in the past 3 weeks when he stopped taking his psychotropic medications and relapsed on alcohol. His symptoms are well controlled on medications. Will continue current treatment regimen and make adjustment as needed. If he fails to respond to treatment, ECT may be ideal since it was effective in the past. Referred to addiction medicine. Lidocaine patch ordered and PT referral made for back pain. 04/10: Patient continues to be severely anxious and depressed. He also continues to experience intermittent left-sided low back pain. No SI/HI/AVH. Continue current treatment regimen. Encourage groups and to engage in physical therapy. Patient may receive inpatient ECT if he does not improve. Verbalized understanding and agreed with the plan. 04/11: Continue tx ECT consult Encourage milieu Right foot/ankle xrays 04/12 Patient says that his mood is better but he remains very anxious. Discussed options and patient agrees to trying Seroquel p.r.n. after reviewing risks/side effects of antipsychotics. 04/14: The depression is somewhat less. Anxiety is high Reports anergy as well I will do what I need to to feel better. Reviewed in team with Dr. May and Dr. Jacob. Dr. May met with pt and ECT will begin on 04/21. Denies SI,HI,AH,VH, SIBS Reports an increase of sleep and intact appetite. Pt asks to return to a regular diet as he reports poor choices on diabetic regime. Also asks that he not receive a safety tray. Intermittent group attendance Over the weekend Clonidine ordered prn along with Seroquel prn and Lidocaine Patch for pain. No new medical/diagnostic results. Plan: Provigil trial. 04/15: Pt reports Provigil has helped this a.m. Pt agrees to ECT trial and will attend milieu groups and will agree to CSS post discharge when ECT is completed. Today, discussed antidepressant trials. Identifies Venlafaxine as most helpful by history. Discussed this, along with Cymbalta with some benefits for pain mgt. Pt would like to trial Cymbalta. Attending groups this afternoon. Plan: Cymbalta 20 mg daily 04/16: Team reports pt slept last evening. He received medical clearance for ECT today Tolerating Cymbalta, Provigil. Will begin Lexapro tapering to 15 mg this evening Not attending groups Rates anxiety/depressive sx 8 today. 04/17/25: Meet with patient in assigned room, report no issues with appetite or sleep. Report anxiety an 8/10 and depression a 7/10. He eats breakfast in room. Denies alcohol craving. Report he went to a group yesterday. Denies SI/SIB /HI/AVH Per nursing, meds compliant, slept for 7 hours, compliant with meds, no side effect. mostly isolated to self in room. Constricted affect.Continue to encourage group participation. 04/18/25: Pt denies SI,HI,AH,VH He is attending some groups He is visable today in the milieu. He has informed his he as a fracture in his back and is unsure of tx plan. called pt's medical social worker to clarify. This was diagnosed when pt was on medicine, having a abdominal diagnostic. On 04/01 abdominal films for pancreatitis were completed. Compression Fx found on L1. STR was suggested by PT when discharged with no further recs when transferred to M5. Nehemias Fuller of PT has been following pt on M5 with exercises, stretching and observation with ambulation. He will need OP PT upon DC. Pt is anxious, apprehensive regarding ECT, however believes this is the appropriate thing to do. Discussed Cymbalta titration to 30 mg and decrease of Escitalopram to 10 mg which he agrees with. 04/19/25: Met with patient in group room A where patient spent time after breakfast watching TV. Reports anxiety 7, and depression is 6/10. Reported that he went to 1 group yesterday. Per nursing, patient slept for 7 hours, compliant with medications. Denies side effects but reports some hand tremors which be from medication or from chronic alcohol abuse. We will continue to monitor. No SI/SIB/HI/AVH. Per ECT consult provider note: Patient has not had ongoing stability from depression for an extended period of time. 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 He did respond to a course of ECT in December and did speak with the patient at the only way that I would recommend another course of ECT at this time would be if the patient will willing to do aggressive treatment including possibility if residential sober home and show a commitment to sobriety otherwise his default appears to be to going back to drinking which also has involved not taking responsibility lack of honesty at times in what he is doing in unless he could commit to this that it would be very hard to achieve any stability. Patient appeared to understand this and patient wish strongly to go forward with ECT as he felt it had been quite helpful and agreed with the above provisions also discussed with the patient the ongoing in potentially severe medical consequences of his chronic alcohol use 04/20/25: Meet with patient in room where he is eating lunch. Report that he does not want to eat and be around with people. Denies sleeping or eating appetite uses. Continue report moderate to severe anxiety of a 7/10 and depression a 6/10. Denies SI/SIB/HI/AVH. Does not have alcohol craving at this moment. Flat/constricted affect. He is looking forward to having ECT tomorrow which he was told by his primary attending. Can observed him sometimes in dinning area but keep to self, not talk to anyone unless approach. Able to make needs known. Per nursing, patient slept for 8 hours, denies side effects from medications. Report to nursing staff with same anixety and depression level. Consistent with report. Continue with current plan. Nursing staff to prapare patient for ECT per protocol. 04/21/25: First ECT treatment today which was delayed until this afternoon. Got back from procedure, denies side effects. Denies [place]RAX[place] but feel a little bit tired. Report anxiety and depression as moderate. No behavior issues. Resting in bed after ECT. Encourage groups when able to/ tolerated. Denies SI/SIB/HI/AVH. Flat affect. Continue with current plan. Lipid profile: elevated. 04/22/25:Trever reports his first ECT went well and he is looking forward to continuing the series. No adverse effects reported from cross taper from Escitalopram to Duloxetine, will continue that this evening. Pt reports he is attending some groups, today, however, he is resting in bed (no groups currently occurring, however he does have a list on his bedside table). Denies SI, HI,AH, VH. Plan: Continue tx 04/23/25: ECT Treatment #2. Attending groups, Resting this afternoon, tired after the treatment. Denies SI,HI,AH,VH. I am trying . Team attempting to assist pt to be more engaged and active when in group. Continue tx. 04/24/25: Continue tx. 04/25/25: Continue tx. 04/26/25:Reviewed with team and reviewed plan of care. Team reports minimal improvement with ECT #3 Met with pt who appears brighter and who is up and about the unit this a.m. This afternoon, pt is in bed, reporting post ECT headache has not really resolved from 04/25, however, he feels the depression is decreasing. Ibuprofen ordered prn for headache. 04/27/25: ECT Treatment #4 scheduled for 04/28. Reports improvement in symptoms of anxiety and depression. Headache resolved from 04/26 with ibuprofen. Team reports they have observed more interaction from pt and a reported genuine belly laugh when in the milieu. Pt is in his room when seen. He is in bed, awake, alert, talking with his room- mate. He acknowledges feeling some relief. He has been in the milieu today- spending a brief time watching the game with peers. He has attended groups today. He appears brighter, more engaged, more initiative of discussion. Plan ECT #1: 04/21/25. Admit to M5. CV 15 minutes check. -Add Seroquel 25 mg p.r.n. for anxiety Diagnostics as needed. Collateral contact. Continue remainder of regime. Encouraged full milieu. Discharge planning. Patient educated on: therapeutic strategies Reason for continued inpatient stay Substantial Risk for: rapid decompensation Time Spent With Patient Time: Total time managing care of this patient today ____ minutes.
[2025-04-27 08:30] VITALS: BP 108/61; PULSE 86; RESP 18; TEMP 36.7; O2SAT 98
[2025-04-27 20:00] VITALS: BP 108/51; PULSE 88; RESP 15; TEMP 36.4; O2SAT 97
[2025-04-28] VITALS (12 sets, daily range): BP systolic 97–174; BP diastolic 60–97; PULSE 79–102; RESP 12–18; TEMP 36.2–37.4; O2SAT 94–100
--- NOTE | 2025-04-28 10:08 | HO.PSYCHPN ---
Subjective Subjective Date of Service: 04/28/25 Reason For Visit: recurrent major depression, alcohol use disorder Subjective Notes: Conditional Voluntary Healthcare Proxy: No Guardianship: No Medical Problems Affecting Mental Status: No Interim History: ECT this afternoon. Today intermittent group attendance. Rates anxiety 3-4 and depression 2-3. Overall continues to report improvement Slept 8.5 hours he reports without difficulty. Medication Compliance: Yes Side effects from medications: No Attending Groups: Intermittent Review of Systems Acute medical concerns: No Medical Review of Systems: unchanged Review of Systems Review of Systems no Mental Status Exam Mental Status Exam Patient Appearance: Appropriate Patient Orientation: Person, Place, Time and Situation Level of Consciousness: Alert Patient Behavior: Talkative and Good Eye Contact Mood Description: Calm Affect Description: Calm Patient Cognition Impaired: No Ability to Follow Directions: Good Speech Pattern: Spontaneous Speech Memory Description: Episodic Impaired Hallucinations: None Delusions: Not Present Thought Process: Slowed Thinking Thought Content: positive for [place] Depressive Symptoms: Increased Fatigue (at times) Judgement: Fair Diagnostics Vital Signs (24Hr): Vital Signs - 24 hr 04/27/25 20:00 04/28/25 08:00 Temperature 97.5 F 98.4 F Pulse Rate 88 79 Respiratory Rate 15 18 Blood Pressure 108/51 L 97/61 Pulse Oximetry 97 97 Oxygen Delivery Method Room Air BMI result Body Mass Index 36.7 Imaging Radiology Impressions: ITS Impressions Ankle X-Ray 04/11/25 13:50 IMPRESSION: Status post tibiotalar arthroplasty. Degenerative changes as described. Electronically signed by: Jony Olivas MD 04/11/2025 01:59 PM EST RP Foot X-Ray 04/11/25 13:51 IMPRESSION: Status post tibiotalar arthroplasty. Degenerative changes as described. Electronically signed by: Jony Olivas MD 04/11/2025 01:59 PM EST RP Medications Medications Current Medications Acetaminophen (Acetaminophen 325 Mg Tablet) 650 mg PO Q6H PRN PRN Reason: Headache/Pain, Scale 1-10 Last Admin: 04/26/25 11:20 Dose: 650 mg Al Hydroxide/Mg Hydroxide (Magnesium Hydrox/Alum Hydrox 30 Ml Oral.Susp) 30 ml PO Q6H PRN PRN Reason: Heartburn/Nausea Amlodipine Besylate (Amlodipine Besylate 10 Mg Tablet) 10 mg PO DAILY [facility]; Protocol Last Admin: 04/27/25 08:49 Dose: 10 mg Atorvastatin Calcium (Atorvastatin Calcium 80 Mg Tablet) 80 mg PO DAILY [facility] Last Admin: 04/27/25 08:49 Dose: 80 mg Clonidine HCl (Clonidine Hcl 0.1 Mg Tablet) 0.1 mg PO Q4H PRN; Protocol PRN Reason: severe anxiety Last Admin: 04/25/25 21:04 Dose: 0.1 mg Duloxetine HCl (Duloxetine Hcl 20 Mg Capsule.Dr) 40 mg PO DAILY [facility] Last Admin: 04/27/25 08:49 Dose: 40 mg Ezetimibe (Ezetimibe 10 Mg Tablet) 10 mg PO DAILY [facility] Last Admin: 04/27/25 08:49 Dose: 10 mg Fenofibrate (Fenofibrate 160 Mg Tablet) 160 mg PO DAILY [facility] Last Admin: 04/27/25 08:49 Dose: 160 mg Folic Acid (Folic Acid 1 Mg Tablet) 1 mg PO DAILY [facility] Last Admin: 04/27/25 08:49 Dose: 1 mg Hydroxyzine HCl (Hydroxyzine Hcl 50 Mg Tablet) 50 mg PO Q6H PRN PRN Reason: mild anxiety Last Admin: 04/27/25 20:29 Dose: 50 mg Ibuprofen (Ibuprofen 800 Mg Tablet) 800 mg PO Q8H PRN PRN Reason: Headache/Pain, Scale 1-10 Lidocaine (Lidocaine 4 % Patch Adh..Patch) 0.5 patch TRANSDERMA DAILY PRN; Protocol PRN Reason: back pain Lurasidone HCl (Lurasidone Hcl 80 Mg Tablet) 80 mg PO 1700 [facility] Last Admin: 04/27/25 17:30 Dose: 80 mg Magnesium Hydroxide (Milk Of Magnesia 30 Ml Oral.Susp) 30 ml PO DAILY PRN PRN Reason: Constipation Methocarbamol (Methocarbamol 500 Mg Tablet) 500 mg PO TID [facility] Last Admin: 04/27/25 20:29 Dose: 500 mg Modafinil (Modafinil 100 Mg Tablet) 100 mg PO DAILY [facility] Last Admin: 04/27/25 08:49 Dose: 100 mg Multivitamins/Vitamin C (Multivitamin Tablet) 1 tab PO DAILY [facility] Last Admin: 04/27/25 08:49 Dose: 1 tab Naloxone HCl (Naloxone Hcl 0.4 Mg/Ml Vial) 0.04 mg IVPUSH Q5M PRN PRN Reason: Excessive sedation or RR < 8 Naloxone HCl (Naloxone Hcl 0.4 Mg/Ml Vial) 0.04 mg IVPUSH Q5M PRN PRN Reason: Excessive sedation or RR < 8 Naltrexone HCl (Naltrexone Hcl 50 Mg Tablet) 50 mg PO DAILY [facility] Last Admin: 04/27/25 08:49 Dose: 50 mg Nicotine Polacrilex (Nicotine Polacrilex 2 Mg Gum) 4 mg BUCCAL Q2H PRN PRN Reason: Nicotine Cravings Omeprazole (Omeprazole 20 Mg Capsule.Dr) 20 mg PO BEDTIME [facility] Last Admin: 04/27/25 20:29 Dose: 20 mg Quetiapine Fumarate (Quetiapine Fumarate 25 Mg Tablet) 25 mg PO TID PRN PRN Reason: breakthrough anxiety Last Admin: 04/27/25 20:29 Dose: 25 mg Thiamine HCl (Thiamine Hcl 100 Mg Tablet) 100 mg PO DAILY [facility] Last Admin: 04/27/25 08:49 Dose: 100 mg Topiramate (Topiramate 25 Mg Tablet) 50 mg PO BEDTIME [facility] Last Admin: 04/27/25 20:34 Dose: Not Given Trazodone HCl (Trazodone Hcl 100 Mg Tablet) 100 mg PO BEDTIME [facility] Last Admin: 04/27/25 20:29 Dose: 100 mg Trazodone HCl (Trazodone Hcl 50 Mg Tablet) 50 mg PO BEDTIME PRN PRN Reason: Insomnia Last Admin: 04/21/25 21:48 Dose: 50 mg Allergies Allergies Allergy/AdvReac Type Severity Reaction Status Date / Time No Known Allergies Allergy Verified 04/01/25 12:28 Assessment & Plan Assessment & Plan (1) Major depressive disorder, recurrent severe without psychotic features: Status: Acute Code(s): F33.2 - Major depressive disorder, recurrent severe without psychotic features (2) Hypertriglyceridemia: Status: Acute Code(s): E78.1 - Pure hyperglyceridemia Plan PLAN: 64-year-old male with medical history of hypertension, type 2 diabetes, hyperlipidemia, compression fracture of L1, and psychiatric history of major depressive disorder, anxiety, and suicidal ideation, presented to [facility] on 04/01/2025 for worsening depression, SI, and a fall. Imaging were unrevealing. He was transferred to the ICU for treatment of metabolic syndrome. He endorsed SI before his discharge from the medical unit and therefore was transferred to M5 yesterday. On interview with this provider, patient states that the reason for his psychiatric admission is suicide ideation and severe depression. He reports severe depression on/off, mostly on for the past several years. He feels hopeless, helpless, and worthless. He lacks interest to do things and has low energy. His symptoms are usually well controlled while on medication. However, he relapsed on drinking alcohol 3 weeks ago and stopped taking his psychotropic medications. He was drinking 5 or more nips daily. Prior to his recent relapse, he was sober for 2 years. He admits that his drinking may have worsened his depressive symptoms. He states that he stopped taking his medications because I didn't care anymore. He currently experiencing severe anxiety and depression. Regarding question about suicide ideation, he states that he does not have a plan, but if I went to sleep, I don't care if don't wake up. He denies hypomania or kaveh episodes. He denies HI/AVH. He reports severe left-sided low back pain which started after he fell the day before he presented to [facility]. CT abdomen/pelvis revealed acute to subacute superior endplate compression fracture at L1. His goal for this hospitalization is that I want to feel better about myself, and to get back on his medications. Formulation/Clinical reasoning: Patient has chronic anxiety and depression symptoms which worsened in the past 3 weeks when he stopped taking his psychotropic medications and relapsed on alcohol. His symptoms are well controlled on medications. Will continue current treatment regimen and make adjustment as needed. If he fails to respond to treatment, ECT may be ideal since it was effective in the past. Referred to addiction medicine. Lidocaine patch ordered and PT referral made for back pain. 04/10: Patient continues to be severely anxious and depressed. He also continues to experience intermittent left-sided low back pain. No SI/HI/AVH. Continue current treatment regimen. Encourage groups and to engage in physical therapy. Patient may receive inpatient ECT if he does not improve. Verbalized understanding and agreed with the plan. 04/11: Continue tx ECT consult Encourage milieu Right foot/ankle xrays 04/12 Patient says that his mood is better but he remains very anxious. Discussed options and patient agrees to trying Seroquel p.r.n. after reviewing risks/side effects of antipsychotics. 04/14: The depression is somewhat less. Anxiety is high Reports anergy as well I will do what I need to to feel better. Reviewed in team with Dr. May and Dr. Jacob. Dr. May met with pt and ECT will begin on 04/21. Denies SI,HI,AH,VH, SIBS Reports an increase of sleep and intact appetite. Pt asks to return to a regular diet as he reports poor choices on diabetic regime. Also asks that he not receive a safety tray. Intermittent group attendance Over the weekend Clonidine ordered prn along with Seroquel prn and Lidocaine Patch for pain. No new medical/diagnostic results. Plan: Provigil trial. 04/15: Pt reports Provigil has helped this a.m. Pt agrees to ECT trial and will attend milieu groups and will agree to CSS post discharge when ECT is completed. Today, discussed antidepressant trials. Identifies Venlafaxine as most helpful by history. Discussed this, along with Cymbalta with some benefits for pain mgt. Pt would like to trial Cymbalta. Attending groups this afternoon. Plan: Cymbalta 20 mg daily 04/16: Team reports pt slept last evening. He received medical clearance for ECT today Tolerating Cymbalta, Provigil. Will begin Lexapro tapering to 15 mg this evening Not attending groups Rates anxiety/depressive sx 8 today. 04/17/25: Meet with patient in assigned room, report no issues with appetite or sleep. Report anxiety an 8/10 and depression a 7/10. He eats breakfast in room. Denies alcohol craving. Report he went to a group yesterday. Denies SI/SIB/HI/AVH Per nursing, meds compliant, slept for 7 hours, compliant with meds, no side effect. mostly isolated to self in room. Constricted affect.Continue to encourage group participation. 04/18/25: Pt denies SI,HI,AH,VH He is attending some groups He is visable today in the milieu. He has informed his he as a fracture in his back and is unsure of tx plan. called pt's social services technician to clarify. This was diagnosed when pt was on medicine, having a abdominal diagnostic. On 04/01 abdominal films for pancreatitis were completed. Compression Fx found on L1. STR was suggested by PT when discharged with no further recs when transferred to . Nehemias Fuller of PT has been following pt on M5 with exercises, stretching and observation with ambulation. He will need OP PT upon DC. Pt is anxious, apprehensive regarding ECT, however believes this is the appropriate thing to do. Discussed Cymbalta titration to 30 mg and decrease of Escitalopram to 10 mg which he agrees with. 04/19/25: Met with patient in group room A where patient spent time after breakfast watching TV. Reports anxiety 7, and depression is 6/10. Reported that he went to 1 group yesterday. Per nursing, patient slept for 7 hours, compliant with medications. Denies side effects but reports some hand tremors which be from medication or from chronic alcohol abuse. We will continue to monitor. No SI/SIB/HI/AVH. Per ECT consult provider note: Patient has not had ongoing stability from depression for an extended period of time. 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 He did respond to a course of ECT in December and did speak with the patient at the only way that I would recommend another course of ECT at this time would be if the patient will willing to do aggressive treatment including possibility if residential sober home and show a commitment to sobriety otherwise his default appears to be to going back to drinking which also has involved not taking responsibility lack of honesty at times in what he is doing in unless he could commit to this that it would be very hard to achieve any stability. Patient appeared to understand this and patient wish strongly to go forward with ECT as he felt it had been quite helpful and agreed with the above provisions also discussed with the patient the ongoing in potentially severe medical consequences of his chronic alcohol use 04/20/25: Meet with patient in room where he is eating lunch. Report that he does not want to eat and be around with people. Denies sleeping or eating appetite uses. Continue report moderate to severe anxiety of a 7/10 and depression a 6/10. Denies SI/SIB/HI/AVH. Does not have alcohol craving at this moment. Flat/constricted affect. He is looking forward to having ECT tomorrow which he was told by his primary attending. Can observed him sometimes in dinning area but keep to self, not talk to anyone unless approach. Able to make needs known. Per nursing, patient slept for 8 hours, denies side effects from medications. Report to nursing staff with same anixety and depression level. Consistent with report. Continue with current plan. Nursing staff to prapare patient for ECT per protocol. 04/21/25: First ECT treatment today which was delayed until this afternoon. Got back from procedure, denies side effects. Denies [place] but feel a little bit tired. Report anxiety and depression as moderate. No behavior issues. Resting in bed after ECT. Encourage groups when able to/ tolerated. Denies SI/SIB/HI/AVH. Flat affect. Continue with current plan. Lipid profile: elevated. 04/22/25:Trever reports his first ECT went well and he is looking forward to continuing the series. No adverse effects reported from cross taper from Escitalopram to Duloxetine, will continue that this evening. Pt reports he is attending some groups, today, however, he is resting in bed (no groups currently occurring, however he does have a list on his bedside table). Denies SI, HI,AH, VH. Plan: Continue tx 04/23/25: ECT Treatment #2. Attending groups, Resting this afternoon, tired after the treatment. Denies SI,HI,AH,VH. I am trying . Team attempting to assist pt to be more engaged and active when in group. Continue tx. 04/24/25: Continue tx. 04/25/25: Continue tx. 04/26/25:Reviewed with team and reviewed plan of care. Team reports minimal improvement with ECT #3 Met with pt who appears brighter and who is up and about the unit this a.m. This afternoon, pt is in bed, reporting post ECT headache has not really resolved from 04/25, however, he feels the depression is decreasing. Ibuprofen ordered prn for headache. 04/28: Continue tx Plan ECT #1: 04/21/25. Admit to M5. CV 15 minutes check. -Add Seroquel 25 mg p.r.n. for anxiety Diagnostics as needed. Collateral contact. Continue remainder of regime. Encouraged full milieu. Discharge planning. Reason for continued inpatient stay Substantial Risk for: rapid decompensation Time Spent With Patient Time: Total time managing care of this patient today ____ minutes.
--- NOTE | 2025-04-28 13:25 | P.CONAN_ITS ---
HPI - Anesthesia Eval Consult details Narrative: 64 yo M presenting for ECT PMFSH Active Problems Active Problems: All Active Problems (Updated 04/20/25 @ 18:04 by Hemant May MD) Alcoholic liver disease (Acute) Major depressive disorder, recurrent severe without psychotic features (Acute) Hypertriglyceridemia (Acute) Low back pain (Acute) Anxiety (Acute) Suicidal ideation (Acute) Fatigue (Acute) Past Medical History Medical History Alcoholic liver disease Major depressive disorder, recurrent severe without psychotic features Hypertriglyceridemia Fracture of nasal bone Alcohol use disorder Fatigue Family History Family history of problems with anesthesia: No Surgical History History of Problems with Anesthesia: No Social History Social History Household Members: Spouse Housing: House Do you presently have visiting nurse or other home services: No Alcohol intake: current Alcohol intake frequency: 3 or more drinks per day Alcohol type: hard liquor Comment: PT Consult ordered Patient Tobacco Use Status: Never used Tobacco Currently Displaying Signs/Symptoms of Drug Intoxication Withdrawal: No Have you been hit, kicked, punched, or otherwise hurt by someone within the past year? If so, by whom?: No Do you feel safe in your current relationship?: Yes Is there a partner from a previous relationship who is making you feel unsafe now?: No Are you made to feel afraid or neglected: No Spiritual Healthcare Practices: Yazidi Are you DNR?: No Advance Directives: Yes Advance Directives Information Provided: No Advance Directives on File: Yes Advance Directives Date on File: 04/02/25 Do you have thoughts of harming others: None Do you have a plan to hurt others: No Plan Recently lost weight without trying: No Eating poorly because of decreased appetite: No Nutrition Risks: No Nutritional Risk Poor oral hygiene: No service: No Sexual orientation: Straight/Heterosexual Meds Allergies Allergy/AdvReac Type Severity Reaction Status Date / Time No Known Allergies Allergy Verified 04/01/25 12:28 Active Medications: Current Medications Acetaminophen (Acetaminophen 325 Mg Tablet) 650 mg PO Q6H PRN PRN Reason: Headache/Pain, Scale 1-10 Last Admin: 04/26/25 11:20 Dose: 650 mg Al Hydroxide/Mg Hydroxide (Magnesium Hydrox/Alum Hydrox 30 Ml Oral.Susp) 30 ml PO Q6H PRN PRN Reason: Heartburn/Nausea Amlodipine Besylate (Amlodipine Besylate 10 Mg Tablet) 10 mg PO DAILY [facility]; Protocol Last Admin: 04/27/25 08:49 Dose: 10 mg Atorvastatin Calcium (Atorvastatin Calcium 80 Mg Tablet) 80 mg PO DAILY [facility] Last Admin: 04/27/25 08:49 Dose: 80 mg Clonidine HCl (Clonidine Hcl 0.1 Mg Tablet) 0.1 mg PO Q4H PRN; Protocol PRN Reason: severe anxiety Last Admin: 04/25/25 21:04 Dose: 0.1 mg Duloxetine HCl (Duloxetine Hcl 20 Mg Capsule.Dr) 40 mg PO DAILY [facility] Last Admin: 04/27/25 08:49 Dose: 40 mg Ezetimibe (Ezetimibe 10 Mg Tablet) 10 mg PO DAILY [facility] Last Admin: 04/27/25 08:49 Dose: 10 mg Fenofibrate (Fenofibrate 160 Mg Tablet) 160 mg PO DAILY [facility] Last Admin: 04/27/25 08:49 Dose: 160 mg Folic Acid (Folic Acid 1 Mg Tablet) 1 mg PO DAILY [facility] Last Admin: 04/27/25 08:49 Dose: 1 mg Hydroxyzine HCl (Hydroxyzine Hcl 50 Mg Tablet) 50 mg PO Q6H PRN PRN Reason: mild anxiety Last Admin: 04/27/25 20:29 Dose: 50 mg Ibuprofen (Ibuprofen 800 Mg Tablet) 800 mg PO Q8H PRN PRN Reason: Headache/Pain, Scale 1-10 Lidocaine (Lidocaine 4 % Patch Adh..Patch) 0.5 patch TRANSDERMA DAILY PRN; Protocol PRN Reason: back pain Lurasidone HCl (Lurasidone Hcl 80 Mg Tablet) 80 mg PO 1700 [facility] Last Admin: 04/27/25 17:30 Dose: 80 mg Magnesium Hydroxide (Milk Of Magnesia 30 Ml Oral.Susp) 30 ml PO DAILY PRN PRN Reason: Constipation Methocarbamol (Methocarbamol 500 Mg Tablet) 500 mg PO TID [facility] Last Admin: 04/27/25 20:29 Dose: 500 mg Modafinil (Modafinil 100 Mg Tablet) 100 mg PO DAILY [facility] Last Admin: 04/27/25 08:49 Dose: 100 mg Multivitamins/Vitamin C (Multivitamin Tablet) 1 tab PO DAILY [facility] Last Admin: 04/27/25 08:49 Dose: 1 tab Naloxone HCl (Naloxone Hcl 0.4 Mg/Ml Vial) 0.04 mg IVPUSH Q5M PRN PRN Reason: Excessive sedation or RR < 8 Naloxone HCl (Naloxone Hcl 0.4 Mg/Ml Vial) 0.04 mg IVPUSH Q5M PRN PRN Reason: Excessive sedation or RR < 8 Naltrexone HCl (Naltrexone Hcl 50 Mg Tablet) 50 mg PO DAILY [facility] Last Admin: 04/27/25 08:49 Dose: 50 mg Nicotine Polacrilex (Nicotine Polacrilex 2 Mg Gum) 4 mg BUCCAL Q2H PRN PRN Reason: Nicotine Cravings Omeprazole (Omeprazole 20 Mg Capsule.Dr) 20 mg PO BEDTIME [facility] Last Admin: 04/27/25 20:29 Dose: 20 mg Quetiapine Fumarate (Quetiapine Fumarate 25 Mg Tablet) 25 mg PO TID PRN PRN Reason: breakthrough anxiety Last Admin: 04/27/25 20:29 Dose: 25 mg Thiamine HCl (Thiamine Hcl 100 Mg Tablet) 100 mg PO DAILY [facility] Last Admin: 04/27/25 08:49 Dose: 100 mg Topiramate (Topiramate 25 Mg Tablet) 50 mg PO BEDTIME [facility] Last Admin: 04/27/25 20:34 Dose: Not Given Trazodone HCl (Trazodone Hcl 100 Mg Tablet) 100 mg PO BEDTIME [facility] Last Admin: 04/27/25 20:29 Dose: 100 mg Trazodone HCl (Trazodone Hcl 50 Mg Tablet) 50 mg PO BEDTIME PRN PRN Reason: Insomnia Last Admin: 04/21/25 21:48 Dose: 50 mg Home Medications ?Medication ?Instructions ?Recorded ?Confirmed ?Last Taken ?Type ezetimibe 10 mg tablet (Zetia) 10 mg PO DAILY 12/19/24 04/08/25 03/23/25 History omega-3 acid ethyl esters 1 gram 2 cap PO BID 12/19/24 04/08/25 03/23/25 History capsule rosuvastatin 20 mg tablet 20 mg PO DAILY 12/19/2403/2203/23/25 History amlodipine 10 mg tablet 10 mg PO DAILY 01/31/2503/2203/23/25 History fenofibrate 160 mg tablet 160 mg PO DAILY 01/31/2503/23/25 History hhmrtcms-ld-pwjmi 300 mcg-K 60 1 tab PO DAILY 01/31/25 04/08/25 03/23/25 History mcg-lycop 600 mcg-lutein 300 mcg tablet (Centrum Silver Men) topiramate 50 mg tablet 50 mg PO BEDTIME 01/31/2503/23/25 History trazodone 100 mg tablet 100 mg PO BEDTIME insomnia 1 06/02/24 04/08/25 03/23/25 History Exam Exam Date and Time: 04/28/25 1325 Height,Weight and Vital Signs: Height 5 ft 9 in Weight 112.7 kg Last Vital Signs Temp 98.5 F 04/28/25 13:12 Pulse 94 04/28/25 13:12 Resp 16 04/28/25 13:12 BP 127/77 04/28/25 13:12 Pulse Ox 94 04/28/25 13:12 O2 Del Method Room Air 04/28/25 13:12 O2 Flow Rate 10 04/25/25 14:15 Pertinent Lab Results Pertinent Lab Results: Laboratory Tests 04/10/25 04/21/25 07:56 09:08 Estimat Average Glucose 111 Hemoglobin A1c % 5.5 Magnesium 1.7 Total Bilirubin 0.5 Direct Bilirubin 0.2 AST 34 ALT 31 Alkaline Phosphatase 77 Ammonia 20 Total Protein 6.7 Albumin 4.1 Triglycerides 1009 H 380 H Cholesterol 253 H 158 LDL Cholesterol, Calc TNP 54 HDL Cholesterol 27 L 28 L Vitamin B12 504 Folate 14.7 TSH 4.62 H Free T4 0.83 Airway Mallampati Class: III TM Dist: <=3cm Neck ROM: Full Loose/Missing/Broken Teeth: No Heart: S1S2 Lungs: CTAB Assessment and Plan Assessment Anesthesia Assessment: Anesthesia Plan Discussed and Chart Reviewed Final Anesthetic Review Family History of Problems with Anesthesia: No History of Problems with Anesthesia: No NPO: Yes ASA Class: III Final Preanesthetic Review: No Changes in Pt Med Stat, Meds/Allgs Chart Reviewed, Consent Obtained/Reviewed and Anes Risks/Benef Reviewed Patient Risk: Intermediate Procedure Risk: Intermediate Anesthetic Plan Anesthetic Plan: GA and Agree w/ Assess. and Plan Disposition: Standard PACU
[2025-04-28] MEDS: Lactated Ringers 1,000 ML 100 ML IVCONT (13:50)
--- NOTE | 2025-04-28 14:03 | MHC.SHP ---
Pre-Procedural Eval Section A - 24 Hr Update-Section A only Date of Service: 04/28/25 Changes since office visit: No Cold of Flu in the past 2 weeks, No New Medical Problems, No Changes in Medication and No Patient answered all questions Section B - Complete if H&P > 30 days Chief Complaint: recurrent major depression, alcohol use disorder Details of Present Illness: feeling better; mood improving Allergies: Allergies Allergy/AdvReac Type Severity Reaction Status Date / Time No Known Allergies Allergy Verified 04/01/25 12:28 Review of Systems Sugical H&P ROS: Negative: Constitution, Cardiovascular, Respiratory, Gastrointestinal and Genitourinary Plan Diagnosis/Plan: Unchanged I have reviewed the history and physical and performed a pertinent physical examination on my patient. No changes have occurred unless specified. Time Spent With Patient Time: Total time managing care of this patient today ____ minutes.
--- NOTE | 2025-04-28 14:05 | HO.ECTPROC ---
ECT Procedure Note Diagnosis/Treatment Date of Service: 04/28/25 Diagnosis: Major Depressive Disorder Previous ECT Date: 04/25/25 Current Treatment Number: 4 Treatment: Series Interval Clinical Notes: pt reports improved mood Time: Total time managing care of this patient today ____ minutes. ECT Settings Device: THYMATRON DGx Electrode Placement: Right Unilateral Program/Pulse Width: 0.50 Energy Percent: 100 Seizure Duration By EEG (in seconds): 31 By Motor Observation (in seconds): 19 Medications Administration General Anesthetic: Etomidate (18) Muscle Relaxant: Succinylcholine (180) Ancillary Medications Cardiovascular Medications: Glycopyrrolate ((PRE) 0.2) Miscillaneous Medications: Midazolam ((POST) 2mg) Airway Management Airway Management: LMA Treatment Recommendations No Changes Recommended: No change Electrode Placement: Right Unilateral Program/Pulse Width: 0.50 Energy Percent: 100 Notes: pt improving; having adequate seizures; tolerating procedure continue with same parameters Pt Tolerated Procedure w/o Issue: Yes
[2025-04-29 08:00] VITALS: BP 117/58; PULSE 76; RESP 16; TEMP 36.6; O2SAT 97
[2025-04-29 09:26] VITALS: BP 117/58
--- NOTE | 2025-04-29 09:54 | HO.PSYCHPN ---
Subjective Subjective Date of Service: 04/29/25 Reason For Visit: recurrent major depression, alcohol use disorder Interim History: met with patient; discussed with team Discussed patient's mood and he says he is feeling much better; he says he is getting close back to his regular self, not quite there but close. Animal Assisted Therapist administered ECT this morning patient says he is without any side effects tolerating it well. He agrees to continue with ECT and to discharge to a program for substance abuse Mental Status Exam Mental Status Exam Narrative: Pt is alert and oriented; behavior is cooperative, friendly and calm; patient is not in distress; dressed in casual attire, a little scruffy but with adequate hygiene; mood is described as good and affect congruent; eye contact appropriate; Speech is normal rate, volume and prosody and not pressured; no psychomotor agitation/retardation present; thought process is organized and goal directed; Thought content is on tx; otherwise pertinent to relevant topics and without any delusional content, paranoid ideations or grandiosity; denies any SI/HI. Denies AVH and there is no evidence of perceptual disturbance. Patients insight and judgment appear intact. Diagnostics Vital Signs (24Hr): Vital Signs - 24 hr 04/28/25 13:12 04/28/25 13:37 04/28/25 14:26 Temperature 98.5 F 97.2 F 99.3 F Pulse Rate 94 80 85 Respiratory Rate 16 17 15 Blood Pressure 127/77 138/83 174/93 H Pulse Oximetry 94 95 97 Oxygen Delivery Method Room Air Room Air Nasal Cannula with ETCO2 Oxygen Flow Rate 3 04/28/25 14:31 04/28/25 14:36 04/28/25 14:41 Temperature Pulse Rate 97 102 H 98 Respiratory Rate 16 15 12 Blood Pressure 161/97 H 166/92 H 145/97 H Pulse Oximetry 97 97 97 Oxygen Delivery Method Nasal Cannula with ETCO2 Nasal Cannula with ETCO2 Nasal Cannula with ETCO2 Oxygen Flow Rate 3 3 3 04/28/25 14:57 04/28/25 15:10 04/28/25 15:41 Temperature 98.9 F 97.6 F Pulse Rate 101 H 87 94 Respiratory Rate 13 18 18 Blood Pressure 151/95 H 134/80 125/81 Pulse Oximetry 100 96 97 Oxygen Delivery Method Nasal Cannula with ETCO2 Room Air Nasal Cannula with ETCO2 Oxygen Flow Rate 3 04/28/25 16:55 04/28/25 20:00 04/29/25 08:00 Temperature 97.8 F 97.9 F Pulse Rate 83 76 Respiratory Rate 18 16 Blood Pressure 125/81 116/60 117/58 L Pulse Oximetry 95 97 Oxygen Delivery Method Room Air Room Air Oxygen Flow Rate 04/29/25 09:26 Temperature Pulse Rate Respiratory Rate Blood Pressure 117/58 L Pulse Oximetry Oxygen Delivery Method Oxygen Flow Rate BMI result Body Mass Index 36.7 Imaging Radiology Impressions: ITS Impressions Ankle X-Ray 04/11/25 13:50 IMPRESSION: Status post tibiotalar arthroplasty. Degenerative changes as described. Electronically signed by: Jony Olivas MD 04/11/2025 01:59 PM EST RP Foot X-Ray 04/11/25 13:51 IMPRESSION: Status post tibiotalar arthroplasty. Degenerative changes as described. Electronically signed by: Jony Olivas MD 04/11/2025 01:59 PM EST RP Medications Medications Current Medications Acetaminophen (Acetaminophen 325 Mg Tablet) 650 mg PO Q6H PRN PRN Reason: Headache/Pain, Scale 1-10 Last Admin: 04/26/25 11:20 Dose: 650 mg Al Hydroxide/Mg Hydroxide (Magnesium Hydrox/Alum Hydrox 30 Ml Oral.Susp) 30 ml PO Q6H PRN PRN Reason: Heartburn/Nausea Amlodipine Besylate (Amlodipine Besylate 10 Mg Tablet) 10 mg PO DAILY [facility]; Protocol Last Admin: 04/29/25 09:26 Dose: 10 mg Atorvastatin Calcium (Atorvastatin Calcium 80 Mg Tablet) 80 mg PO DAILY [facility] Last Admin: 04/29/25 09:26 Dose: 80 mg Clonidine HCl (Clonidine Hcl 0.1 Mg Tablet) 0.1 mg PO Q4H PRN; Protocol PRN Reason: severe anxiety Last Admin: 04/25/25 21:04 Dose: 0.1 mg Duloxetine HCl (Duloxetine Hcl 20 Mg Capsule.Dr) 40 mg PO DAILY [facility] Last Admin: 04/29/25 09:26 Dose: 40 mg Ezetimibe (Ezetimibe 10 Mg Tablet) 10 mg PO DAILY [facility] Last Admin: 04/29/25 09:26 Dose: 10 mg Fenofibrate (Fenofibrate 160 Mg Tablet) 160 mg PO DAILY [facility] Last Admin: 04/29/25 09:26 Dose: 160 mg Folic Acid (Folic Acid 1 Mg Tablet) 1 mg PO DAILY [facility] Last Admin: 04/29/25 09:27 Dose: 1 mg Hydroxyzine HCl (Hydroxyzine Hcl 50 Mg Tablet) 50 mg PO Q6H PRN PRN Reason: mild anxiety Last Admin: 04/28/25 22:32 Dose: 50 mg Lactated Ringer's (Lr) 1,000 mls @ 100 mls/hr IVCONT .Q10H [facility] On Hold: 04/29/25 09:29 Last Admin: 04/29/25 01:23 Dose: Not Given Ibuprofen (Ibuprofen 800 Mg Tablet) 800 mg PO Q8H PRN PRN Reason: Headache/Pain, Scale 1-10 Lidocaine (Lidocaine 4 % Patch Adh..Patch) 0.5 patch TRANSDERMA DAILY PRN; Protocol PRN Reason: back pain Lurasidone HCl (Lurasidone Hcl 80 Mg Tablet) 80 mg PO 1700 [facility] Last Admin: 04/28/25 18:11 Dose: 80 mg Magnesium Hydroxide (Milk Of Magnesia 30 Ml Oral.Susp) 30 ml PO DAILY PRN PRN Reason: Constipation Methocarbamol (Methocarbamol 500 Mg Tablet) 500 mg PO TID [facility] Last Admin: 04/29/25 09:27 Dose: 500 mg Modafinil (Modafinil 100 Mg Tablet) 100 mg PO DAILY [facility] Last Admin: 04/29/25 09:26 Dose: 100 mg Multivitamins/Vitamin C (Multivitamin Tablet) 1 tab PO DAILY [facility] Last Admin: 04/29/25 09:26 Dose: 1 tab Naloxone HCl (Naloxone Hcl 0.4 Mg/Ml Vial) 0.04 mg IVPUSH Q5M PRN PRN Reason: Excessive sedation or RR < 8 Naloxone HCl (Naloxone Hcl 0.4 Mg/Ml Vial) 0.04 mg IVPUSH Q5M PRN PRN Reason: Excessive sedation or RR < 8 Naltrexone HCl (Naltrexone Hcl 50 Mg Tablet) 50 mg PO DAILY [facility] Last Admin: 04/29/25 09:26 Dose: 50 mg Nicotine Polacrilex (Nicotine Polacrilex 2 Mg Gum) 4 mg BUCCAL Q2H PRN PRN Reason: Nicotine Cravings Omeprazole (Omeprazole 20 Mg Capsule.Dr) 20 mg PO BEDTIME [facility] Last Admin: 04/28/25 22:32 Dose: 20 mg Quetiapine Fumarate (Quetiapine Fumarate 25 Mg Tablet) 25 mg PO TID PRN PRN Reason: breakthrough anxiety Last Admin: 04/28/25 22:32 Dose: 25 mg Thiamine HCl (Thiamine Hcl 100 Mg Tablet) 100 mg PO DAILY [facility] Last Admin: 04/29/25 09:26 Dose: 100 mg Topiramate (Topiramate 25 Mg Tablet) 50 mg PO BEDTIME [facility] Last Admin: 04/28/25 22:32 Dose: 50 mg Trazodone HCl (Trazodone Hcl 100 Mg Tablet) 100 mg PO BEDTIME [facility] Last Admin: 04/28/25 22:32 Dose: 100 mg Trazodone HCl (Trazodone Hcl 50 Mg Tablet) 50 mg PO BEDTIME PRN PRN Reason: Insomnia Last Admin: 04/21/25 21:48 Dose: 50 mg Allergies Allergies Allergy/AdvReac Type Severity Reaction Status Date / Time No Known Allergies Allergy Verified 04/01/25 12:28 Assessment & Plan Assessment & Plan (1) Major depressive disorder, recurrent severe without psychotic features: Status: Acute Code(s): F33.2 - Major depressive disorder, recurrent severe without psychotic features (2) Hypertriglyceridemia: Status: Acute Code(s): E78.1 - Pure hyperglyceridemia Plan PLAN: 64-year-old male with medical history of hypertension, type 2 diabetes, hyperlipidemia, compression fracture of L1, and psychiatric history of major depressive disorder, anxiety, and suicidal ideation, presented to [facility] [place] [facility] on 04/01/2025 for worsening depression, SI, and a fall. Imaging were unrevealing. He was transferred to the ICU for treatment of metabolic syndrome. He endorsed SI before his discharge from the medical unit and therefore was transferred to yesterday. On interview with this provider, patient states that the reason for his psychiatric admission is suicide ideation and severe depression. He reports severe depression on/off, mostly on for the past several years. He feels hopeless, helpless, and worthless. He lacks interest to do things and has low energy. His symptoms are usually well controlled while on medication. However, he relapsed on drinking alcohol 3 weeks ago and stopped taking his psychotropic medications. He was drinking 5 or more nips daily. Prior to his recent relapse, he was sober for 2 years. He admits that his drinking may have worsened his depressive symptoms. He states that he stopped taking his medications because I didn't care anymore. He currently experiencing severe anxiety and depression. Regarding question about suicide ideation, he states that he does not have a plan, but if I went to sleep, I don't care if don't wake up. He denies hypomania or kaveh episodes. He denies HI/AVH. He reports severe left-sided low back pain which started after he fell the day before he presented to [facility] [place] [facility]. CT abdomen/pelvis revealed acute to subacute superior endplate compression fracture at L1. His goal for this hospitalization is that I want to feel better about myself, and to get back on his medications. Formulation/Clinical reasoning: Patient has chronic anxiety and depression symptoms which worsened in the past 3 weeks when he stopped taking his psychotropic medications and relapsed on alcohol. His symptoms are well controlled on medications. Will continue current treatment regimen and make adjustment as needed. If he fails to respond to treatment, ECT may be ideal since it was effective in the past. Referred to addiction medicine. Lidocaine patch ordered and PT referral made for back pain. 04/10: Patient continues to be severely anxious and depressed. He also continues to experience intermittent left-sided low back pain. No SI/HI/AVH. Continue current treatment regimen. Encourage groups and to engage in physical therapy. Patient may receive inpatient ECT if he does not improve. Verbalized understanding and agreed with the plan. 04/11: Continue tx ECT consult Encourage milieu Right foot/ankle xrays 04/12 Patient says that his mood is better but he remains very anxious. Discussed options and patient agrees to trying Seroquel p.r.n. after reviewing risks/side effects of antipsychotics. 04/14: The depression is somewhat less. Anxiety is high Reports anergy as well I will do what I need to to feel better. Reviewed in team with Dr. May and Dr. Jacob. Dr. May met with pt and ECT will begin on 04/21. Denies SI,HI,AH,VH, SIBS Reports an increase of sleep and intact appetite. Pt asks to return to a regular diet as he reports poor choices on diabetic regime. Also asks that he not receive a safety tray. Intermittent group attendance Over the weekend Clonidine ordered prn along with Seroquel prn and Lidocaine Patch for pain. No new medical/diagnostic results. Plan: Provigil trial. 04/15: Pt reports Provigil has helped this a.m. Pt agrees to ECT trial and will attend milieu groups and will agree to CSS post discharge when ECT is completed. Today, discussed antidepressant trials. Identifies Venlafaxine as most helpful by history. Discussed this, along with Cymbalta with some benefits for pain mgt. Pt would like to trial Cymbalta. Attending groups this afternoon. Plan: Cymbalta 20 mg daily 04/16: Team reports pt slept last evening. He received medical clearance for ECT today Tolerating Cymbalta, Provigil. Will begin Lexapro tapering to 15 mg this evening Not attending groups Rates anxiety/depressive sx 8 today. 04/17/25: Meet with patient in assigned room, report no issues with appetite or sleep. Report anxiety an 8/10 and depression a 7/10. He eats breakfast in room. Denies alcohol craving. Report he went to a group yesterday. Denies SI/SIB/HI/AVH Per nursing, meds compliant, slept for 7 hours, compliant with meds, no side effect. mostly isolated to self in room. Constricted affect.Continue to encourage group participation. 04/18/25: Pt denies SI,HI,AH,VH He is attending some groups He is visable today in the milieu. He has informed his he as a fracture in his back and is unsure of tx plan. called pt's aids social worker to clarify. This was diagnosed when pt was on medicine, having a abdominal diagnostic. On 04/01 abdominal films for pancreatitis were completed. Compression Fx found on L1. STR was suggested by PT when discharged with no further recs when transferred to . Nehemias Fuller of PT has been following pt on M5 with exercises, stretching and observation with ambulation. He will need OP PT upon DC. Pt is anxious, apprehensive regarding ECT, however believes this is the appropriate thing to do. Discussed Cymbalta titration to 30 mg and decrease of Escitalopram to 10 mg which he agrees with. 04/19/25: Met with patient in group room A where patient spent time after breakfast watching TV. Reports anxiety 7, and depression is 6/10. Reported that he went to 1 group yesterday. Per nursing, patient slept for 7 hours, compliant with medications. Denies side effects but reports some hand tremors which be from medication or from chronic alcohol abuse. We will continue to monitor. No SI/SIB/HI/AVH. Per ECT consult provider note: Patient has not had ongoing stability from depression for an extended period of time. 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 He did respond to a course of ECT in December and did speak with the patient at the only way that I would recommend another course of ECT at this time would be if the patient will willing to do aggressive treatment including possibility if residential sober home and show a commitment to sobriety otherwise his default appears to be to going back to drinking which also has involved not taking responsibility lack of honesty at times in what he is doing in unless he could commit to this that it would be very hard to achieve any stability. Patient appeared to understand this and patient wish strongly to go forward with ECT as he felt it had been quite helpful and agreed with the above provisions also discussed with the patient the ongoing in potentially severe medical consequences of his chronic alcohol use 04/20/25: Meet with patient in room where he is eating lunch. Report that he does not want to eat and be around with people. Denies sleeping or eating appetite uses. Continue report moderate to severe anxiety of a 7/10 and depression a 6/10. Denies SI/SIB/HI/AVH. Does not have alcohol craving at this moment. Flat/constricted affect. He is looking forward to having ECT tomorrow which he was told by his primary attending. Can observed him sometimes in dinning area but keep to self, not talk to anyone unless approach. Able to make needs known. Per nursing, patient slept for 8 hours, denies side effects from medications. Report to nursing staff with same anixety and depression level. Consistent with report. Continue with current plan. Nursing staff to prapare patient for ECT per protocol. 04/21/25: First ECT treatment today which was delayed until this afternoon. Got back from procedure, denies side effects. Denies BRAXTON but feel a little bit tired. Report anxiety and depression as moderate. No behavior issues. Resting in bed after ECT. Encourage groups when able to/ tolerated. Denies SI/SIB/HI/AVH. Flat affect. Continue with current plan. Lipid profile: elevated. 04/22/25:Trever reports his first ECT went well and he is looking forward to continuing the series. No adverse effects reported from cross taper from Escitalopram to Duloxetine, will continue that this evening. Pt reports he is attending some groups, today, however, he is resting in bed (no groups currently occurring, however he does have a list on his bedside table). Denies SI, HI,AH, VH. Plan: Continue tx 04/23/25: ECT Treatment #2. Attending groups, Resting this afternoon, tired after the treatment. Denies SI,HI,AH,VH. I am trying . Team attempting to assist pt to be more engaged and active when in group. Continue tx. 04/24/25: Continue tx. 04/25/25: Continue tx. 04/26/25:Reviewed with team and reviewed plan of care. Team reports minimal improvement with ECT #3 Met with pt who appears brighter and who is up and about the unit this a.m. This afternoon, pt is in bed, reporting post ECT headache has not really resolved from 04/25, however, he feels the depression is decreasing. Ibuprofen ordered prn for headache. 04/28: Continue tx Plan CV Q15min ECT #1: 04/21/25. ECT #4 04/29/25 ECT #5 pending on 04/30 -Add Seroquel 25 mg p.r.n. for anxiety Diagnostics as needed. Collateral contact. Continue remainder of regime. Encouraged full milieu. Discharge planning. Patient educated on: diagnosis, substance abuse and ECT Informed Consent: understands Reason for continued inpatient stay Substantial Risk for: stable for discharge Time Spent With Patient Time: Total time managing care of this patient today ____ minutes.
[2025-04-29 20:00] VITALS: BP 116/74; PULSE 94; RESP 20; TEMP 36.7; O2SAT 95
[2025-04-30] VITALS (8 sets, daily range): BP systolic 117–152; BP diastolic 68–98; PULSE 88–107; RESP 14–18; TEMP 36.1–37; O2SAT 95–100
--- NOTE | 2025-04-30 07:53 | HO.ANESPROP2 ---
COUNTS INCLUDE 234 BEDS AT THE [facility] Active Problems Active Problems: All Active Problems Alcoholic liver disease (Acute) Major depressive disorder, recurrent severe without psychotic features (Acute) Hypertriglyceridemia (Acute) Low back pain (Acute) Anxiety (Acute) Suicidal ideation (Acute) Fatigue (Acute) Past Medical History Medical History Alcoholic liver disease Major depressive disorder, recurrent severe without psychotic features Hypertriglyceridemia Fracture of nasal bone Alcohol use disorder Fatigue Family History Family history of problems with anesthesia: No Surgical History History of Problems with Anesthesia: No Social History Social History Household Members: Spouse Housing: House Do you presently have visiting nurse or other home services: No Alcohol intake: current Alcohol intake frequency: 3 or more drinks per day Alcohol type: hard liquor Comment: PT Consult ordered Patient Tobacco Use Status: Never used Tobacco Currently Displaying Signs/Symptoms of Drug Intoxication Withdrawal: No Have you been hit, kicked, punched, or otherwise hurt by someone within the past year? If so, by whom?: No Do you feel safe in your current relationship?: Yes Is there a partner from a previous relationship who is making you feel unsafe now?: No Are you made to feel afraid or neglected: No Spiritual Healthcare Practices: Buddhism Are you DNR?: No Advance Directives: Yes Advance Directives Information Provided: No Advance Directives on File: Yes Advance Directives Date on File: 04/02/25 Do you have thoughts of harming others: None Do you have a plan to hurt others: No Plan Recently lost weight without trying: No Eating poorly because of decreased appetite: No Nutrition Risks: No Nutritional Risk Poor oral hygiene: No service: No Sexual orientation: Straight/Heterosexual Meds Allergies Allergy/AdvReac Type Severity Reaction Status Date / Time No Known Allergies Allergy Verified 04/01/25 12:28 Active Medications: Current Medications Acetaminophen (Acetaminophen 325 Mg Tablet) 650 mg PO Q6H PRN PRN Reason: Headache/Pain, Scale 1-10 Last Admin: 04/26/25 11:20 Dose: 650 mg Al Hydroxide/Mg Hydroxide (Magnesium Hydrox/Alum Hydrox 30 Ml Oral.Susp) 30 ml PO Q6H PRN PRN Reason: Heartburn/Nausea Amlodipine Besylate (Amlodipine Besylate 10 Mg Tablet) 10 mg PO DAILY [facility]; Protocol Last Admin: 04/29/25 09:26 Dose: 10 mg Atorvastatin Calcium (Atorvastatin Calcium 80 Mg Tablet) 80 mg PO DAILY [facility] Last Admin: 04/29/25 09:26 Dose: 80 mg Clonidine HCl (Clonidine Hcl 0.1 Mg Tablet) 0.1 mg PO Q4H PRN; Protocol PRN Reason: severe anxiety Last Admin: 04/25/25 21:04 Dose: 0.1 mg Duloxetine HCl (Duloxetine Hcl 20 Mg Capsule.Dr) 40 mg PO DAILY [facility] Last Admin: 04/29/25 09:26 Dose: 40 mg Ezetimibe (Ezetimibe 10 Mg Tablet) 10 mg PO DAILY [facility] Last Admin: 04/29/25 09:26 Dose: 10 mg Fenofibrate (Fenofibrate 160 Mg Tablet) 160 mg PO DAILY [facility] Last Admin: 04/29/25 09:26 Dose: 160 mg Folic Acid (Folic Acid 1 Mg Tablet) 1 mg PO DAILY [facility] Last Admin: 04/29/25 09:27 Dose: 1 mg Hydroxyzine HCl (Hydroxyzine Hcl 50 Mg Tablet) 50 mg PO Q6H PRN PRN Reason: mild anxiety Last Admin: 04/28/25 22:32 Dose: 50 mg Lactated Ringer's (Lr) 1,000 mls @ 100 mls/hr IVCONT .Q10H [facility] On Hold: 04/29/25 09:29 Last Infusion: 04/29/25 11:33 Dose: Infused Ibuprofen (Ibuprofen 800 Mg Tablet) 800 mg PO Q8H PRN PRN Reason: Headache/Pain, Scale 1-10 Lidocaine (Lidocaine 4 % Patch Adh..Patch) 0.5 patch TRANSDERMA DAILY PRN; Protocol PRN Reason: back pain Lurasidone HCl (Lurasidone Hcl 80 Mg Tablet) 80 mg PO 1700 [facility] Last Admin: 04/29/25 17:22 Dose: 80 mg Magnesium Hydroxide (Milk Of Magnesia 30 Ml Oral.Susp) 30 ml PO DAILY PRN PRN Reason: Constipation Methocarbamol (Methocarbamol 500 Mg Tablet) 500 mg PO TID [facility] Last Admin: 04/29/25 22:16 Dose: 500 mg Modafinil (Modafinil 100 Mg Tablet) 100 mg PO DAILY [facility] Last Admin: 04/29/25 09:26 Dose: 100 mg Multivitamins/Vitamin C (Multivitamin Tablet) 1 tab PO DAILY [facility] Last Admin: 04/29/25 09:26 Dose: 1 tab Naltrexone HCl (Naltrexone Hcl 50 Mg Tablet) 50 mg PO DAILY [facility] Last Admin: 04/29/25 09:26 Dose: 50 mg Nicotine Polacrilex (Nicotine Polacrilex 2 Mg Gum) 4 mg BUCCAL Q2H PRN PRN Reason: Nicotine Cravings Omeprazole (Omeprazole 20 Mg Capsule.Dr) 20 mg PO BEDTIME [facility] Last Admin: 04/29/25 22:16 Dose: 20 mg Quetiapine Fumarate (Quetiapine Fumarate 25 Mg Tablet) 25 mg PO TID PRN PRN Reason: breakthrough anxiety Last Admin: 04/28/25 22:32 Dose: 25 mg Thiamine HCl (Thiamine Hcl 100 Mg Tablet) 100 mg PO DAILY [facility] Last Admin: 04/29/25 09:26 Dose: 100 mg Topiramate (Topiramate 25 Mg Tablet) 50 mg PO BEDTIME [facility] Last Admin: 04/29/25 22:26 Dose: Not Given Trazodone HCl (Trazodone Hcl 100 Mg Tablet) 100 mg PO BEDTIME [facility] Last Admin: 04/29/25 22:16 Dose: 100 mg Trazodone HCl (Trazodone Hcl 50 Mg Tablet) 50 mg PO BEDTIME PRN PRN Reason: Insomnia Last Admin: 04/21/25 21:48 Dose: 50 mg Home Medications ?Medication ?Instructions ?Recorded ?Confirmed ?Last Taken ?Type ezetimibe 10 mg tablet (Zetia) 10 mg PO DAILY 12/19/24 04/08/25 03/23/25 History omega-3 acid ethyl esters 1 gram 2 cap PO BID 12/19/24 04/08/25 03/23/25 History capsule rosuvastatin 20 mg tablet 20 mg PO DAILY 12/19/24 04/08/25 03/23/25 History amlodipine 10 mg tablet 10 mg PO DAILY 01/31/25 04/08/25 03/23/25 History fenofibrate 160 mg tablet 160 mg PO DAILY 01/31/25 04/08/25 03/23/25 History iosrtbmd-rh-tdkta 300 mcg-K 60 1 tab PO DAILY 01/31/25 04/08/25 03/23/25 History mcg-lycop 600 mcg-lutein 300 mcg tablet (Centrum Silver Men) topiramate 50 mg tablet 50 mg PO BEDTIME 01/31/25 04/08/25 03/23/25 History trazodone 100 mg tablet 100 mg PO BEDTIME insomnia 04/02/25 04/08/25 03/23/25 History Exam Height,Weight and Vital Signs: Height 5 ft 9 in Weight 112.7 kg Last Vital Signs Temp 97.5 F 04/30/25 07:07 Pulse 88 04/30/25 07:07 Resp 16 04/30/25 07:07 BP 149/82 H 04/30/25 07:07 Pulse Ox 95 04/30/25 07:07 O2 Del Method Room Air 04/30/25 07:07 O2 Flow Rate 3 04/28/25 14:57 Pertinent Lab Results Pertinent Lab Results: Laboratory Tests 04/10/25 04/21/25 07:56 09:08 Estimat Average Glucose 111 Hemoglobin A1c % 5.5 Magnesium 1.7 Total Bilirubin 0.5 Direct Bilirubin 0.2 AST 34 ALT 31 Alkaline Phosphatase 77 Ammonia 20 Total Protein 6.7 Albumin 4.1 Triglycerides 1009 H 380 H Cholesterol 253 H 158 LDL Cholesterol, Calc TNP 54 HDL Cholesterol 27 L 28 L Vitamin B12 504 Folate 14.7 TSH 4.62 H Free T4 0.83 Airway Mallampati Class: III (thick neck) TM Dist: >3cm Neck ROM: Full Heart: rrr Lungs: cta Assessment and Plan Assessment Anesthesia Assessment: Anesthesia Plan Discussed and Chart Reviewed Final Anesthetic Review Family History of Problems with Anesthesia: No History of Problems with Anesthesia: No NPO: Yes ASA Class: III Final Preanesthetic Review: No Changes in Pt Med Stat, Meds/Allgs Chart Reviewed and Consent Obtained/Reviewed Patient Risk: Intermediate Procedure Risk: Intermediate Anesthetic Plan Anesthetic Plan: GA Disposition: Standard PACU
--- NOTE | 2025-04-30 08:12 | MHC.SHP ---
Pre-Procedural Eval Section A - 24 Hr Update-Section A only Date of Service: 04/30/25 Changes since office visit: No Cold of Flu in the past 2 weeks, No New Medical Problems, No Changes in Medication and No Patient answered all questions Section B - Complete if H&P > 30 days Chief Complaint: recurrent major depression, alcohol use disorder Details of Present Illness: feeling better; mood improving Allergies: Allergies Allergy/AdvReac Type Severity Reaction Status Date / Time No Known Allergies Allergy Verified 04/01/25 12:28 Review of Systems Sugical H&P ROS: Negative: Constitution, Cardiovascular, Respiratory, Gastrointestinal and Genitourinary Plan Diagnosis/Plan: Unchanged I have reviewed the history and physical and performed a pertinent physical examination on my patient. No changes have occurred unless specified. Time Spent With Patient Time: Total time managing care of this patient today ____ minutes.
--- NOTE | 2025-04-30 08:14 | HO.ECTPROC ---
ECT Procedure Note Diagnosis/Treatment Date of Service: 04/30/25 Diagnosis: Major Depressive Disorder Previous ECT Date: 04/28/25 Current Treatment Number: 6 Treatment: Series Interval Clinical Notes: pt reports improved mood no c/o side effects Time: Total time managing care of this patient today ____ minutes. ECT Settings Device: THYMATRON DGx Electrode Placement: Right Unilateral Program/Pulse Width: 0.50 Energy Percent: 100 Seizure Duration By EEG (in seconds): 38 Medications Administration General Anesthetic: Etomidate (18) Muscle Relaxant: Succinylcholine (180) Ancillary Medications Cardiovascular Medications: Glycopyrrolate ((PRE) 0.2) Miscillaneous Medications: Midazolam ((POST) 2mg) Airway Management Airway Management: LMA Treatment Recommendations No Changes Recommended: No change Electrode Placement: Right Unilateral Program/Pulse Width: 0.50 Energy Percent: 100 Pt Tolerated Procedure w/o Issue: Yes
--- NOTE | 2025-04-30 10:07 | P.PNPSI_ITS ---
Subjective Subjective Date of Service: 04/30/25 Reason For Visit: recurrent major depression, alcohol use disorder Subjective Notes: Conditional Voluntary Healthcare Proxy: No Guardianship: No Medical Problems Affecting Mental Status: No Interim History: ECT #5. Pt reports feeling improvement from treatments with reports of an increase in focus, a decrease in depressive sx, a decrease in anergy and improved motivation. Discussed probable discharge to [facility] on 05/05. He reports he is anxious but is ready to move forward. Denies SI,HI,AH,VH. Medication Compliance: Yes Side effects from medications: No Attending Groups: Intermittent Review of Systems Acute medical concerns: No Medical Review of Systems: unchanged Review of Systems Review of Systems Denies Mental Status Exam Mental Status Exam Patient Appearance: Fatigued Patient Orientation: Person, Place, Time and Situation Level of Consciousness: Alert Patient Behavior: Talkative and Good Eye Contact Mood Description: Constricted Affect Description: Constricted Patient Cognition Impaired: No Ability to Follow Directions: Good Speech Pattern: Spontaneous Speech Memory Description: Episodic Impaired Hallucinations: None Delusions: Not Present Thought Process: Intact Thought Content: positive for Intact and positive for Suicidal Ideation (denies) Depressive Symptoms: Thoughts of /Suicide (denies) Judgement: Good Diagnostics Vital Signs (24Hr): Vital Signs - 24 hr 04/29/25 20:00 04/30/25 07:07 04/30/25 08:38 Temperature 98.1 F 97.5 F 98.6 F Pulse Rate 94 88 101 H Respiratory Rate 20 16 18 Blood Pressure 116/74 149/82 H 148/87 H Pulse Oximetry 95 95 100 Oxygen Delivery Method Room Air Room Air Nasal Cannula Oxygen Flow Rate 2 04/30/25 08:40 04/30/25 08:45 04/30/25 08:50 Temperature Pulse Rate 107 H 103 H 103 H Respiratory Rate 17 14 14 Blood Pressure 152/96 H 117/98 H 144/83 H Pulse Oximetry 97 97 96 Oxygen Delivery Method Nasal Cannula Room Air Room Air Oxygen Flow Rate 2 04/30/25 09:05 04/30/25 09:35 04/30/25 09:35 Temperature 98.5 F 96.9 F 96.9 F Pulse Rate 105 H 94 94 Respiratory Rate 16 14 Blood Pressure 130/93 H 130/71 130/71 Pulse Oximetry 96 97 97 Oxygen Delivery Method Room Air Room Air Oxygen Flow Rate BMI result Body Mass Index 36.7 Imaging Radiology Impressions: ITS Impressions Ankle X-Ray 04/11/25 13:50 IMPRESSION: Status post tibiotalar arthroplasty. Degenerative changes as described. Electronically signed by: Jony Olivas MD 04/11/2025 01:59 PM EST RP Foot X-Ray 04/11/25 13:51 IMPRESSION: Status post tibiotalar arthroplasty. Degenerative changes as described. Electronically signed by: Jony Olivas MD 04/11/2025 01:59 PM EST RP Medications Medications Current Medications Acetaminophen (Acetaminophen 325 Mg Tablet) 650 mg PO Q6H PRN PRN Reason: Headache/Pain, Scale 1-10 Last Admin: 04/26/25 11:20 Dose: 650 mg Al Hydroxide/Mg Hydroxide (Magnesium Hydrox/Alum Hydrox 30 Ml Oral.Susp) 30 ml PO Q6H PRN PRN Reason: Heartburn/Nausea Amlodipine Besylate (Amlodipine Besylate 10 Mg Tablet) 10 mg PO DAILY [facility]; Protocol Last Admin: 04/30/25 09:43 Dose: 10 mg Atorvastatin Calcium (Atorvastatin Calcium 80 Mg Tablet) 80 mg PO DAILY [facility] Last Admin: 04/30/25 09:43 Dose: 80 mg Clonidine HCl (Clonidine Hcl 0.1 Mg Tablet) 0.1 mg PO Q4H PRN; Protocol PRN Reason: severe anxiety Last Admin: 04/25/25 21:04 Dose: 0.1 mg Duloxetine HCl (Duloxetine Hcl 20 Mg Capsule.Dr) 40 mg PO DAILY [facility] Last Admin: 04/30/25 09:43 Dose: 40 mg Ezetimibe (Ezetimibe 10 Mg Tablet) 10 mg PO DAILY [facility] Last Admin: 04/30/25 09:42 Dose: 10 mg Fenofibrate (Fenofibrate 160 Mg Tablet) 160 mg PO DAILY [facility] Last Admin: 04/30/25 09:42 Dose: 160 mg Folic Acid (Folic Acid 1 Mg Tablet) 1 mg PO DAILY [facility] Last Admin: 04/30/25 09:43 Dose: 1 mg Hydroxyzine HCl (Hydroxyzine Hcl 50 Mg Tablet) 50 mg PO Q6H PRN PRN Reason: mild anxiety Last Admin: 04/28/25 22:32 Dose: 50 mg Ibuprofen (Ibuprofen 800 Mg Tablet) 800 mg PO Q8H PRN PRN Reason: Headache/Pain, Scale 1-10 Lidocaine (Lidocaine 4 % Patch Adh..Patch) 0.5 patch TRANSDERMA DAILY PRN; Protocol PRN Reason: back pain Lurasidone HCl (Lurasidone Hcl 80 Mg Tablet) 80 mg PO 1700 [facility] Last Admin: 04/29/25 17:22 Dose: 80 mg Magnesium Hydroxide (Milk Of Magnesia 30 Ml Oral.Susp) 30 ml PO DAILY PRN PRN Reason: Constipation Methocarbamol (Methocarbamol 500 Mg Tablet) 500 mg PO TID [facility] Last Admin: 04/30/25 09:43 Dose: 500 mg Modafinil (Modafinil 100 Mg Tablet) 100 mg PO DAILY [facility] Last Admin: 04/30/25 09:43 Dose: 100 mg Multivitamins/Vitamin C (Multivitamin Tablet) 1 tab PO DAILY [facility] Last Admin: 04/30/25 09:43 Dose: 1 tab Naloxone HCl (Naloxone Hcl 0.4 Mg/Ml Vial) 0.04 mg IVPUSH Q5M PRN PRN Reason: Excessive sedation or RR < 8 Naltrexone HCl (Naltrexone Hcl 50 Mg Tablet) 50 mg PO DAILY [facility] Last Admin: 04/30/25 09:43 Dose: 50 mg Nicotine Polacrilex (Nicotine Polacrilex 2 Mg Gum) 4 mg BUCCAL Q2H PRN PRN Reason: Nicotine Cravings Omeprazole (Omeprazole 20 Mg Capsule.Dr) 20 mg PO BEDTIME [facility] Last Admin: 04/29/25 22:16 Dose: 20 mg Quetiapine Fumarate (Quetiapine Fumarate 25 Mg Tablet) 25 mg PO TID PRN PRN Reason: breakthrough anxiety Last Admin: 04/28/25 22:32 Dose: 25 mg Thiamine HCl (Thiamine Hcl 100 Mg Tablet) 100 mg PO DAILY [facility] Last Admin: 04/30/25 09:43 Dose: 100 mg Topiramate (Topiramate 25 Mg Tablet) 50 mg PO BEDTIME [facility] Last Admin: 04/29/25 22:26 Dose: Not Given Trazodone HCl (Trazodone Hcl 100 Mg Tablet) 100 mg PO BEDTIME [facility] Last Admin: 04/29/25 22:16 Dose: 100 mg Trazodone HCl (Trazodone Hcl 50 Mg Tablet) 50 mg PO BEDTIME PRN PRN Reason: Insomnia Last Admin: 04/21/25 21:48 Dose: 50 mg Allergies Allergies Allergy/AdvReac Type Severity Reaction Status Date / Time No Known Allergies Allergy Verified 04/01/25 12:28 Assessment & Plan Assessment & Plan (1) Major depressive disorder, recurrent severe without psychotic features: Status: Acute Code(s): F33.2 - Major depressive disorder, recurrent severe without psychotic features (2) Hypertriglyceridemia: Status: Acute Code(s): E78.1 - Pure hyperglyceridemia Plan PLAN: 64-year-old male with medical history of hypertension, type 2 diabetes, hyperlipidemia, compression fracture of L1, and psychiatric history of major depressive disorder, anxiety, and suicidal ideation, presented to [facility] [place] for worsening depression, SI, and a fall. Imaging were unrevealing. He was transferred to the ICU for treatment of metabolic syndrome. He endorsed SI before his discharge from the medical unit and therefore was transferred to yesterday. On interview with this provider, patient states that the reason for his psychiatric admission is suicide ideation and severe depression. He reports severe depression on/off, mostly on for the past several years. He feels hopeless, helpless, and worthless. He lacks interest to do things and has low energy. His symptoms are usually well controlled while on medication. However, he relapsed on drinking alcohol 3 weeks ago and stopped taking his psychotropic medications. He was drinking 5 or more nips daily. Prior to his recent relapse, he was sober for 2 years. He admits that his drinking may have worsened his depressive symptoms. He states that he stopped taking his medications because I didn't care anymore. He currently experiencing severe anxiety and depression. Regarding question about suicide ideation, he states that he does not have a plan, but if I went to sleep, I don't care if don't wake up. He denies hypomania or kaveh episodes. He denies HI/AVH. He reports severe left-sided low back pain which started after he fell the day before he presented to [facility] abdomen/pelvis revealed acute to subacute superior endplate compression fracture at L1. His goal for this hospitalization is that I want to feel better about myself, and to get back on his medications. Formulation/Clinical reasoning: Patient has chronic anxiety and depression symptoms which worsened in the past 3 weeks when he stopped taking his psychotropic medications and relapsed on alcohol. His symptoms are well controlled on medications. Will continue current treatment regimen and make adjustment as needed. If he fails to respond to treatment, ECT may be ideal since it was effective in the past. Referred to addiction medicine. Lidocaine patch ordered and PT referral made for back pain. 04/10: Patient continues to be severely anxious and depressed. He also continues to experience intermittent left-sided low back pain. No SI/HI/AVH. Continue current treatment regimen. Encourage groups and to engage in physical therapy. Patient may receive inpatient ECT if he does not improve. Verbalized understanding and agreed with the plan. 04/11: Continue tx ECT consult Encourage milieu Right foot/ankle xrays 04/12 Patient says that his mood is better but he remains very anxious. Discussed options and patient agrees to trying Seroquel p.r.n. after reviewing risks/side effects of antipsychotics. 04/14: The depression is somewhat less. Anxiety is high Reports anergy as well I will do what I need to to feel better. Reviewed in team with Dr. May and Dr. Jacob. Dr. May met with pt and ECT will begin on 04/21. Denies SI,HI,AH,VH, SIBS Reports an increase of sleep and intact appetite. Pt asks to return to a regular diet as he reports poor choices on diabetic regime. Also asks that he not receive a safety tray. Intermittent group attendance Over the weekend Clonidine ordered prn along with Seroquel prn and Lidocaine Patch for pain. No new medical/diagnostic results. Plan: Provigil trial. 04/15: Pt reports Provigil has helped this a.m. Pt agrees to ECT trial and will attend milieu groups and will agree to CSS post discharge when ECT is completed. Today, discussed antidepressant trials. Identifies Venlafaxine as most helpful by history. Discussed this, along with Cymbalta with some benefits for pain mgt. Pt would like to trial Cymbalta. Attending groups this afternoon. Plan: Cymbalta 20 mg daily 04/16: Team reports pt slept last evening. He received medical clearance for ECT today Tolerating Cymbalta, Provigil. Will begin Lexapro tapering to 15 mg this evening Not attending groups Rates anxiety/depressive sx 8 today. 04/17/25: Meet with patient in assigned room, report no issues with appetite or sleep. Report anxiety an 8/10 and depression a 7/10. He eats breakfast in room. Denies alcohol craving. Report he went to a group yesterday. Denies SI/SIB/HI/ AVH Per nursing, meds compliant, slept for 7 hours, compliant with meds, no side effect. mostly isolated to self in room. Constricted affect.Continue to encourage group participation. 04/18/25: Pt denies SI,HI,AH,VH He is attending some groups He is visable today in the milieu. He has informed his he as a fracture in his back and is unsure of tx plan. called pt's social sciences chair to clarify. This was diagnosed when pt was on medicine, having a abdominal diagnostic. On 04/01 abdominal films for pancreatitis were completed. Compression Fx found on L1. STR was suggested by PT when discharged with no further recs when transferred to M5. Nehemias Fuller of PT has been following pt on M5 with exercises, stretching and observation with ambulation. He will need OP PT upon DC. Pt is anxious, apprehensive regarding ECT, however believes this is the appropriate thing to do. Discussed Cymbalta titration to 30 mg and decrease of Escitalopram to 10 mg which he agrees with. 04/19/25: Met with patient in group room A where patient spent time after breakfast watching TV. Reports anxiety 7, and depression is 6/10. Reported that he went to 1 group yesterday. Per nursing, patient slept for 7 hours, compliant with medications. Denies side effects but reports some hand tremors which be from medication or from chronic alcohol abuse. We will continue to monitor. No SI/SIB/HI/AVH. Per ECT consult provider note: Patient has not had ongoing stability from depression for an extended period of time. 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 He did respond to a course of ECT in December and did speak with the patient at the only way that I would recommend another course of ECT at this time would be if the patient will willing to do aggressive treatment including possibility if residential sober home and show a commitment to sobriety otherwise his default appears to be to going back to drinking which also has involved not taking responsibility lack of honesty at times in what he is doing in unless he could commit to this that it would be very hard to achieve any stability. Patient appeared to understand this and patient wish strongly to go forward with ECT as he felt it had been quite helpful and agreed with the above provisions also discussed with the patient the ongoing in potentially severe medical consequences of his chronic alcohol use 04/20/25: Meet with patient in room where he is eating lunch. Report that he does not want to eat and be around with people. Denies sleeping or eating appetite uses. Continue report moderate to severe anxiety of a 7/10 and depression a 6/10. Denies SI/SIB/HI/AVH. Does not have alcohol craving at this moment. Flat/constricted affect. He is looking forward to having ECT tomorrow which he was told by his primary attending. Can observed him sometimes in dinning area but keep to self, not talk to anyone unless approach. Able to make needs known. Per nursing, patient slept for 8 hours, denies side effects from medications. Report to nursing staff with same anixety and depression level. Consistent with report. Continue with current plan. Nursing staff to prapare patient for ECT per protocol. 04/21/25: First ECT treatment today which was delayed until this afternoon. Got back from procedure, denies side effects. Denies BRAXTON but feel a little bit tired. Report anxiety and depression as moderate. No behavior issues. Resting in bed after ECT. Encourage groups when able to/ tolerated. Denies SI/SIB/HI/AVH. Flat affect. Continue with current plan. Lipid profile: elevated. 04/22/25:Trever reports his first ECT went well and he is looking forward to continuing the series. No adverse effects reported from cross taper from Escitalopram to Duloxetine, will continue that this evening. Pt reports he is attending some groups, today, however, he is resting in bed (no groups currently occurring, however he does have a list on his bedside table). Denies SI, HI,AH, VH. Plan: Continue tx 04/23/25: ECT Treatment #2. Attending groups, Resting this afternoon, tired after the treatment. Denies SI,HI,AH,VH. I am trying . Team attempting to assist pt to be more engaged and active when in group. Continue tx. 04/24/25: Continue tx. 04/25/25: Continue tx. 04/26/25:Reviewed with team and reviewed plan of care. Team reports minimal improvement with ECT #3 Met with pt who appears brighter and who is up and about the unit this a.m. This afternoon, pt is in bed, reporting post ECT headache has not really resolved from 04/25, however, he feels the depression is decreasing. Ibuprofen ordered prn for headache. 04/28: Continue tx 04/30/25. ECT #5. Pt reports feeling improvement from treatments with reports of an increase in focus, a decrease in depressive sx, a decrease in anergy and improved motivation. Discussed probable discharge to [facility] on 05/05. He reports he is anxious but is ready to move forward. Denies SI,HI,AH,VH. Plan: Continue tx Plan CV Q15min ECT #1: 04/21/25. ECT #4 04/29/25 ECT #5 pending on 04/30 -Add Seroquel 25 mg p.r.n. for anxiety Diagnostics as needed. Collateral contact. Continue remainder of regime. Encouraged full milieu. Discharge planning. Patient educated on: therapeutic strategies Informed Consent: understands Reason for continued inpatient stay Substantial Risk for: rapid decompensation Time Spent With Patient Time: Total time managing care of this patient today ____ minutes.
[2025-05-01 07:00] VITALS: BMI 36.3
[2025-05-01 08:00] VITALS: BP 136/86; PULSE 95; TEMP 37.1; O2SAT 95
--- NOTE | 2025-05-01 10:02 | P.PNPSI_ITS ---
Subjective Subjective Date of Service: 05/01/25 Reason For Visit: recurrent major depression, alcohol use disorder Subjective Notes: Conditional Voluntary Healthcare Proxy: No Guardianship: No Medical Problems Affecting Mental Status: No Interim History: Plans ECT for 05/02. Pt reports he will interview with [facility] today. Slept 8 hours, attending groups. Denies medical issues of concern. Denies SI,HI,AH,VH Review of medications. Discussion of Duloxetine titration and pt is in agreement for increase. Medication Compliance: Yes Side effects from medications: No Attending Groups: Yes Review of Systems Acute medical concerns: No Medical Review of Systems: unchanged Review of Systems Review of Systems Denies Mental Status Exam Mental Status Exam Patient Appearance: Appropriate Patient Orientation: Person, Place, Time and Situation Level of Consciousness: Alert Patient Behavior: Talkative and Good Eye Contact Mood Description: Appropriate Affect Description: Appropriate and Flat Patient Cognition Impaired: No Ability to Follow Directions: Good Speech Pattern: Spontaneous Speech Memory Description: Episodic Impaired Hallucinations: None Delusions: Not Present Thought Process: Intact Thought Content: positive for Intact and positive for Suicidal Ideation (denies) Depressive Symptoms: Thoughts of /Suicide (denies) Judgement: Good Diagnostics Vital Signs (24Hr): Vital Signs - 24 hr 04/30/25 19:58 05/01/25 08:00 Temperature 98.2 F 98.8 F Pulse Rate 90 95 Respiratory Rate 18 Blood Pressure 130/68 136/86 Pulse Oximetry 98 95 Oxygen Delivery Method Room Air Room Air BMI result Body Mass Index 36.7 Imaging Radiology Impressions: ITS Impressions Ankle X-Ray 04/11/25 13:50 IMPRESSION: Status post tibiotalar arthroplasty. Degenerative changes as described. Electronically signed by: Jony Olivas MD 04/11/2025 01:59 PM EST RP Foot X-Ray 04/11/25 13:51 IMPRESSION: Status post tibiotalar arthroplasty. Degenerative changes as described. Electronically signed by: Jony Olivas MD 04/11/2025 01:59 PM EST RP Medications Medications Current Medications Acetaminophen (Acetaminophen 325 Mg Tablet) 650 mg PO Q6H PRN PRN Reason: Headache/Pain, Scale 1-10 Last Admin: 04/26/25 11:20 Dose: 650 mg Al Hydroxide/Mg Hydroxide (Magnesium Hydrox/Alum Hydrox 30 Ml Oral.Susp) 30 ml PO Q6H PRN PRN Reason: Heartburn/Nausea Amlodipine Besylate (Amlodipine Besylate 10 Mg Tablet) 10 mg PO DAILY [facility]; Protocol Last Admin: 05/01/25 08:32 Dose: 10 mg Atorvastatin Calcium (Atorvastatin Calcium 80 Mg Tablet) 80 mg PO DAILY [facility] Last Admin: 05/01/25 08:32 Dose: 80 mg Clonidine HCl (Clonidine Hcl 0.1 Mg Tablet) 0.1 mg PO Q4H PRN; Protocol PRN Reason: severe anxiety Last Admin: 04/25/25 21:04 Dose: 0.1 mg Duloxetine HCl (Duloxetine Hcl 20 Mg Capsule.Dr) 40 mg PO DAILY [facility] Last Admin: 05/01/25 08:33 Dose: 40 mg Ezetimibe (Ezetimibe 10 Mg Tablet) 10 mg PO DAILY [facility] Last Admin: 05/01/25 08:32 Dose: 10 mg Fenofibrate (Fenofibrate 160 Mg Tablet) 160 mg PO DAILY [facility] Last Admin: 05/01/25 08:33 Dose: 160 mg Folic Acid (Folic Acid 1 Mg Tablet) 1 mg PO DAILY [facility] Last Admin: 05/01/25 08:32 Dose: 1 mg Hydroxyzine HCl (Hydroxyzine Hcl 50 Mg Tablet) 50 mg PO Q6H PRN PRN Reason: mild anxiety Last Admin: 04/28/25 22:32 Dose: 50 mg Ibuprofen (Ibuprofen 800 Mg Tablet) 800 mg PO Q8H PRN PRN Reason: Headache/Pain, Scale 1-10 Lidocaine (Lidocaine 4 % Patch Adh..Patch) 0.5 patch TRANSDERMA DAILY PRN; Protocol PRN Reason: back pain Lurasidone HCl (Lurasidone Hcl 80 Mg Tablet) 80 mg PO 1700 [facility] Last Admin: 04/30/25 17:19 Dose: 80 mg Magnesium Hydroxide (Milk Of Magnesia 30 Ml Oral.Susp) 30 ml PO DAILY PRN PRN Reason: Constipation Methocarbamol (Methocarbamol 500 Mg Tablet) 500 mg PO TID [facility] Last Admin: 05/01/25 08:32 Dose: 500 mg Modafinil (Modafinil 100 Mg Tablet) 100 mg PO DAILY [facility] Last Admin: 05/01/25 08:32 Dose: 100 mg Multivitamins/Vitamin C (Multivitamin Tablet) 1 tab PO DAILY [facility] Last Admin: 05/01/25 08:33 Dose: 1 tab Naloxone HCl (Naloxone Hcl 0.4 Mg/Ml Vial) 0.04 mg IVPUSH Q5M PRN PRN Reason: Excessive sedation or RR < 8 Naltrexone HCl (Naltrexone Hcl 50 Mg Tablet) 50 mg PO DAILY [facility] Last Admin: 05/01/25 08:32 Dose: 50 mg Omeprazole (Omeprazole 20 Mg Capsule.Dr) 20 mg PO BEDTIME PAYAM Last Admin: 04/30/25 20:48 Dose: 20 mg Quetiapine Fumarate (Quetiapine Fumarate 25 Mg Tablet) 25 mg PO TID PRN PRN Reason: breakthrough anxiety Last Admin: 04/28/25 22:32 Dose: 25 mg Thiamine HCl (Thiamine Hcl 100 Mg Tablet) 100 mg PO DAILY [facility] Last Admin: 05/01/25 08:32 Dose: 100 mg Topiramate (Topiramate 25 Mg Tablet) 50 mg PO BEDTIME PAYAM Last Admin: 04/30/25 20:48 Dose: 50 mg Trazodone HCl (Trazodone Hcl 100 Mg Tablet) 100 mg PO BEDTIME [facility] Last Admin: 04/30/25 20:48 Dose: 100 mg Trazodone HCl (Trazodone Hcl 50 Mg Tablet) 50 mg PO BEDTIME PRN PRN Reason: Insomnia Last Admin: 04/21/25 21:48 Dose: 50 mg Allergies Allergies Allergy/AdvReac Type Severity Reaction Status Date / Time No Known Allergies Allergy Verified 04/01/25 12:28 Assessment & Plan Assessment & Plan (1) Major depressive disorder, recurrent severe without psychotic features: Status: Acute Code(s): F33.2 - Major depressive disorder, recurrent severe without psychotic features (2) Hypertriglyceridemia: Status: Acute Code(s): E78.1 - Pure hyperglyceridemia Plan PLAN: 64-year-old male with medical history of hypertension, type 2 diabetes, hyperlipidemia, compression fracture of L1, and psychiatric history of major depressive disorder, anxiety, and suicidal ideation, presented to [facility] ED on 04/01/2025 for worsening depression, SI, and a fall. Imaging were unrevealing. He was transferred to the ICU for treatment of metabolic syndrome. He endorsed SI before his discharge from the medical unit and therefore was transferred to yesterday. On interview with this provider, patient states that the reason for his psychiatric admission is suicide ideation and severe depression. He reports severe depression on/off, mostly on for the past several years. He feels hopeless, helpless, and worthless. He lacks interest to do things and has low energy. His symptoms are usually well controlled while on medication. However, he relapsed on drinking alcohol 3 weeks ago and stopped taking his psychotropic medications. He was drinking 5 or more nips daily. Prior to his recent relapse, he was sober for 2 years. He admits that his drinking may have worsened his depressive symptoms. He states that he stopped taking his medications because I didn't care anymore. He currently experiencing severe anxiety and depression. Regarding question about suicide ideation, he states that he does not have a plan, but if I went to sleep, I don't care if don't wake up. He denies hypomania or kaveh episodes. He denies HI/AVH. He reports severe left-sided low back pain which started after he fell the day before he presented to [facility] ED. CT abdomen/pelvis revealed acute to subacute superior endplate compression fracture at L1. His goal for this hospitalization is that I want to feel better about myself, and to get back on his medications. Formulation/Clinical reasoning: Patient has chronic anxiety and depression symptoms which worsened in the past 3 weeks when he stopped taking his psychotropic medications and relapsed on alcohol. His symptoms are well controlled on medications. Will continue current treatment regimen and make adjustment as needed. If he fails to respond to treatment, ECT may be ideal since it was effective in the past. Referred to addiction medicine. Lidocaine patch ordered and PT referral made for back pain. 04/10: Patient continues to be severely anxious and depressed. He also continues to experience intermittent left-sided low back pain. No SI/HI/AVH. C ontinue current treatment regimen. Encourage groups and to engage in physical therapy. Patient may receive inpatient ECT if he does not improve. Verbalized understanding and agreed with the plan. 04/11: Continue tx ECT consult Encourage milieu Right foot/ankle xrays 04/12 Patient says that his mood is better but he remains very anxious. Discussed options and patient agrees to trying Seroquel p.r.n. after reviewing risks/side effects of antipsychotics. 04/14: The depression is somewhat less. Anxiety is high Reports anergy as well I will do what I need to to feel better. Reviewed in team with Dr. May and Dr. Jacob. Dr. May met with pt and ECT will begin on 04/21. Denies SI,HI,AH,VH, SIBS Reports an increase of sleep and intact appetite. Pt asks to return to a regular diet as he reports poor choices on diabetic regime. Also asks that he not receive a safety tray. Intermittent group attendance Over the weekend Clonidine ordered prn along with Seroquel prn and Lidocaine Patch for pain. No new medical/diagnostic results. Plan: Provigil trial. 04/15: Pt reports Provigil has helped this a.m. Pt agrees to ECT trial and will attend milieu groups and will agree to CSS post discharge when ECT is completed. Today, discussed antidepressant trials. Identifies Venlafaxine as most helpful by history. Discussed this, along with Cymbalta with some benefits for pain mgt. Pt would like to trial Cymbalta. Attending groups this afternoon. Plan: Cymbalta 20 mg daily 04/16: Team reports pt slept last evening. He received medical clearance for ECT today Tolerating Cymbalta, Provigil. Will begin Lexapro tapering to 15 mg this evening Not attending groups Rates anxiety/depressive sx 8 today. 04/17/25: Meet with patient in assigned room, report no issues with appetite or sleep. Report anxiety an 8/10 and depression a 7/10. He eats breakfast in room. Denies alcohol craving. Report he went to a group yesterday. Denies SI/SIB/HI/AVH Per nursing, meds compliant, slept for 7 hours, compliant with meds, no side effect. mostly isolated to self in room. Constricted affect.Continue to encourage group participation. 04/18/25: Pt denies SI,HI,AH,VH He is attending some groups He is visable today in the milieu. He has informed his he as a fracture in his back and is unsure of tx plan. called pt's social insurance analyst to clarify. This was diagnosed when pt was on medicine, having a abdominal diagnostic. On 04/01 abdominal films for pancreatitis were completed. Compression Fx found on L1. STR was suggested by PT when discharged with no further recs when transferred to . Nehemias Fuller of PT has been following pt on M5 with exercises, stretching and observation with ambulation. He will need OP PT upon DC. Pt is anxious, apprehensive regarding ECT, however believes this is the appropriate thing to do. Discussed Cymbalta titration to 30 mg and decrease of Escitalopram to 10 mg which he agrees with. 04/19/25: Met with patient in group room A where patient spent time after breakfast watching TV. Reports anxiety 7, and depression is 6/10. Reported that he went to 1 group yesterday. Per nursing, patient slept for 7 hours, compliant with medications. Denies side effects but reports some hand tremors which be from medication or from chronic alcohol abuse. We will continue to monitor. No SI/SIB/HI/AVH. Per ECT consult provider note: Patient has not had ongoing stability from depression for an extended period of time. 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 He did respond to a course of ECT in December and did speak with the patient at the only way that I would recommend another course of ECT at this time would be if the patient will willing to do aggressive treatment including possibility if residential sober home and show a commitment to sobriety otherwise his default appears to be to going back to drinking which also has involved not taking responsibility lack of honesty at times in what he is doing in unless he could commit to this that it would be very hard to achieve any stability. Patient appeared to understand this and patient wish strongly to go forward with ECT as he felt it had been quite helpful and agreed with the above provisions also discussed with the patient the ongoing in potentially severe medical consequences of his chronic alcohol use 04/20/25: Meet with patient in room where he is eating lunch. Report that he does not want to eat and be around with people. Denies sleeping or eating appetite uses. Continue report moderate to severe anxiety of a 7/10 and depression a 6/10. Denies SI/SIB/HI/AVH. Does not have alcohol craving at this moment. Flat/constricted affect. He is looking forward to having ECT tomorrow which he was told by his primary attending. Can observed him sometimes in dinning area but keep to self, not talk to anyone unless approach. Able to make needs known. Per nursing, patient slept for 8 hours, denies side effects from medications. Report to nursing staff with same anixety and depression level. Consistent with report. Continue with current plan. Nursing staff to prapare patient for ECT per protocol. 04/21/25: First ECT treatment today which was delayed until this afternoon. Got back from procedure, denies side effects. Denies BRAXTON but feel a little bit tired. Report anxiety and depression as moderate. No behavior issues. Resting in bed after ECT. Encourage groups when able to/ tolerated. Denies SI/SIB/HI/AVH. Flat affect. Continue with current plan. Lipid profile: elevated. 04/22/25:Trever reports his first ECT went well and he is looking forward to continuing the series. No adverse effects reported from cross taper from Escita lopram to Duloxetine, will continue that this evening. Pt reports he is attending some groups, today, however, he is resting in bed (no groups currently occurring, however he does have a list on his bedside table). Denies SI, HI,AH, VH. Plan: Continue tx 04/23/25: ECT Treatment #2. Attending groups, Resting this afternoon, tired after the treatment. Denies SI,HI,AH,VH. I am trying . Team attempting to assist pt to be more engaged and active when in group. Continue tx. 04/24/25: Continue tx. 04/25/25: Continue tx. 04/26/25:Reviewed with team and reviewed plan of care. Team reports minimal impro vement with ECT #3 Met with pt who appears brighter and who is up and about the unit this a.m. This afternoon, pt is in bed, reporting post ECT headache has not really resolved from 04/25, however, he feels the depression is decreasing. Ibuprofen ordered prn for headache. 04/28: Continue tx 04/30/25: 04/30/25. ECT #5. Pt reports feeling improvement from treatments with reports of an increase in focus, a decrease in depressive sx, a decrease in anergy and improved motivation. Discussed probable discharge to [facility] on 05/05. He reports he is anxious but is ready to move forward. Denies SI, HI,AH,VH. Plan: Continue tx 05/01/25: Plans ECT for 05/02. Pt reports he will interview with [facility] today. Slept 8 hours, attending groups. Denies medical issues of concern. Denies SI,HI,AH,VH Review of medications. Discussion of Duloxetine titration and pt is in agreement for increase. Plan CV Q15min ECT #1: 04/21/25. ECT #4 04/29/25 ECT #5 pending on 04/30 -Add Seroquel 25 mg p.r.n. for anxiety Diagnostics as needed. Collateral contact. Continue remainder of regime. Encouraged full milieu. Discharge planning. Reason for continued inpatient stay Substantial Risk for: rapid decompensation Time Spent With Patient Time: Total time managing care of this patient today ____ minutes.
[2025-05-01 19:55] VITALS: BP 131/72; PULSE 88; RESP 20; TEMP 36.9; O2SAT 97
[2025-05-02] VITALS (9 sets, daily range): BP systolic 131–187; BP diastolic 77–104; PULSE 90–105; RESP 16–22; TEMP 36.4–37.1; O2SAT 93–100
--- NOTE | 2025-05-02 06:19 | HO.ECTPROC ---
ECT Procedure Note Diagnosis/Treatment Date of Service: 05/02/25 Diagnosis: Major Depressive Disorder Previous ECT Date: 04/30/25 Current Treatment Number: 6 Treatment: Series Interval Clinical Notes: Pt reports that he feels 'good', states ECT has helped. Denies any SE from the treatment. Time: Total time managing care of this patient today ____ minutes. ECT Settings Device: THYMATRON DGx Electrode Placement: Right Unilateral Program/Pulse Width: 0.50 Energy Percent: 100 Seizure Duration By EEG (in seconds): 46 By Motor Observation (in seconds): 32 Medications Administration General Anesthetic: Etomidate (18) Muscle Relaxant: Succinylcholine (180) Ancillary Medications Cardiovascular Medications: Glycopyrrolate (.2 pre) Miscillaneous Medications: Midazolam (2 post) Airway Management Airway Management: LMA Treatment Recommendations Pt Tolerated Procedure w/o Issue: Yes
--- NOTE | 2025-05-02 06:22 | MHC.SHP ---
Pre-Procedural Eval Section A - 24 Hr Update-Section A only Date of Service: 05/02/25 The patient is an INPATIENT: Yes Changes since office visit: No Cold of Flu in the past 2 weeks, No New Medical Problems, No Changes in Medication and No Patient answered all questions The patient has been examined within 24 hours of the surgical procedure. The History & Physical has been completed within 30 days and I have reviewed it.: Yes Section B - Complete if H&P > 30 days Chief Complaint: recurrent major depression, alcohol use disorder Allergies: Allergies Allergy/AdvReac Type Severity Reaction Status Date / Time No Known Allergies Allergy Verified 04/01/25 12:28 Plan I have reviewed the history and physical and performed a pertinent physical examination on my patient. No changes have occurred unless specified. Time Spent With Patient Time: Total time managing care of this patient today ____ minutes.
[2025-05-02] MEDS: Lactated Ringers 1,000 ML 50 ML IVCONT (06:50)
--- NOTE | 2025-05-02 06:55 | HO.ANESPROP2 ---
[facility] Active Problems Active Problems: All Active Problems Alcoholic liver disease (Acute) Major depressive disorder, recurrent severe without psychotic features (Acute) Hypertriglyceridemia (Acute) Low back pain (Acute) Anxiety (Acute) Suicidal ideation (Acute) Fatigue (Acute) Past Medical History Medical History Alcoholic liver disease Major depressive disorder, recurrent severe without psychotic features Hypertriglyceridemia Fracture of nasal bone Alcohol use disorder Fatigue Family History Family history of problems with anesthesia: No Surgical History History of Problems with Anesthesia: No Social History Social History Household Members: Spouse Housing: House Do you presently have visiting nurse or other home services: No Alcohol intake: current Alcohol intake frequency: 3 or more drinks per day Alcohol type: hard liquor Comment: PT Consult ordered Patient Tobacco Use Status: Never used Tobacco Currently Displaying Signs/Symptoms of Drug Intoxication Withdrawal: No Have you been hit, kicked, punched, or otherwise hurt by someone within the past year? If so, by whom?: No Do you feel safe in your current relationship?: Yes Is there a partner from a previous relationship who is making you feel unsafe now?: No Are you made to feel afraid or neglected: No Spiritual Healthcare Practices: Spiritism Are you DNR?: No Advance Directives: Yes Advance Directives Information Provided: No Advance Directives on File: Yes Advance Directives Date on File: 04/02/25 Do you have thoughts of harming others: None Do you have a plan to hurt others: No Plan Recently lost weight without trying: No Eating poorly because of decreased appetite: No Nutrition Risks: No Nutritional Risk Poor oral hygiene: No service: No Sexual orientation: Straight/Heterosexual Meds Allergies Allergy/AdvReac Type Severity Reaction Status Date / Time No Known Allergies Allergy Verified 04/01/25 12:28 Active Medications: Current Medications Acetaminophen (Acetaminophen 325 Mg Tablet) 650 mg PO Q6H PRN PRN Reason: Headache/Pain, Scale 1-10 Last Admin: 04/26/25 11:20 Dose: 650 mg Al Hydroxide/Mg Hydroxide (Magnesium Hydrox/Alum Hydrox 30 Ml Oral.Susp) 30 ml PO Q6H PRN PRN Reason: Heartburn/Nausea Amlodipine Besylate (Amlodipine Besylate 10 Mg Tablet) 10 mg PO DAILY [facility]; Protocol Last Admin: 05/01/25 08:32 Dose: 10 mg Atorvastatin Calcium (Atorvastatin Calcium 80 Mg Tablet) 80 mg PO DAILY [facility] Last Admin: 05/01/25 08:32 Dose: 80 mg Clonidine HCl (Clonidine Hcl 0.1 Mg Tablet) 0.1 mg PO Q4H PRN; Protocol PRN Reason: severe anxiety Last Admin: 04/25/25 21:04 Dose: 0.1 mg Duloxetine HCl (Duloxetine Hcl 60 Mg Capsule.Dr) 60 mg PO DAILY [facility] Ezetimibe (Ezetimibe 10 Mg Tablet) 10 mg PO DAILY [facility] Last Admin: 05/01/25 08:32 Dose: 10 mg Fenofibrate (Fenofibrate 160 Mg Tablet) 160 mg PO DAILY [facility] Last Admin: 05/01/25 08:33 Dose: 160 mg Folic Acid (Folic Acid 1 Mg Tablet) 1 mg PO DAILY [facility] Last Admin: 05/01/25 08:32 Dose: 1 mg Hydroxyzine HCl (Hydroxyzine Hcl 50 Mg Tablet) 50 mg PO Q6H PRN PRN Reason: mild anxiety Last Admin: 04/28/25 22:32 Dose: 50 mg Lactated Ringer's (Lr) 1,000 mls @ 50 mls/hr IVCONT .Q20H [facility] Ibuprofen (Ibuprofen 800 Mg Tablet) 800 mg PO Q8H PRN PRN Reason: Headache/Pain, Scale 1-10 Lidocaine (Lidocaine 4 % Patch Adh..Patch) 0.5 patch TRANSDERMA DAILY PRN; Protocol PRN Reason: back pain Lurasidone HCl (Lurasidone Hcl 80 Mg Tablet) 80 mg PO 1700 [facility] Last Admin: 05/01/25 17:22 Dose: 80 mg Magnesium Hydroxide (Milk Of Magnesia 30 Ml Oral.Susp) 30 ml PO DAILY PRN PRN Reason: Constipation Methocarbamol (Methocarbamol 500 Mg Tablet) 500 mg PO TID [facility] Last Admin: 05/01/25 20:44 Dose: 500 mg Modafinil (Modafinil 100 Mg Tablet) 100 mg PO DAILY [facility] Last Admin: 05/01/25 08:32 Dose: 100 mg Multivitamins/Vitamin C (Multivitamin Tablet) 1 tab PO DAILY [facility] Last Admin: 05/01/25 08:33 Dose: 1 tab Naloxone HCl (Naloxone Hcl 0.4 Mg/Ml Vial) 0.04 mg IVPUSH Q5M PRN PRN Reason: Excessive sedation or RR < 8 Naltrexone HCl (Naltrexone Hcl 50 Mg Tablet) 50 mg PO DAILY [facility] Last Admin: 05/01/25 08:32 Dose: 50 mg Omeprazole (Omeprazole 20 Mg Capsule.Dr) 20 mg PO BEDTIME [facility] Last Admin: 05/01/25 20:44 Dose: 20 mg Quetiapine Fumarate (Quetiapine Fumarate 25 Mg Tablet) 25 mg PO TID PRN PRN Reason: breakthrough anxiety Last Admin: 04/28/25 22:32 Dose: 25 mg Thiamine HCl (Thiamine Hcl 100 Mg Tablet) 100 mg PO DAILY [facility] Last Admin: 05/01/25 08:32 Dose: 100 mg Topiramate (Topiramate 25 Mg Tablet) 50 mg PO BEDTIME [facility] Last Admin: 05/01/25 20:51 Dose: Not Given Trazodone HCl (Trazodone Hcl 100 Mg Tablet) 100 mg PO BEDTIME [facility] Last Admin: 05/01/25 20:44 Dose: 100 mg Trazodone HCl (Trazodone Hcl 50 Mg Tablet) 50 mg PO BEDTIME PRN PRN Reason: Insomnia Last Admin: 04/21/25 21:48 Dose: 50 mg Home Medications ?Medication ?Instructions ?Recorded ?Confirmed ?Last Taken ?Type ezetimibe 10 mg tablet (Zetia) 10 mg PO DAILY 12/19/24 04/08/25 03/23/25 History omega-3 acid ethyl esters 1 gram 2 cap PO BID 12/19/24 04/08/25 03/23/25 History capsule rosuvastatin 20 mg tablet 20 mg PO DAILY 12/19/24 04/08/25 03/23/25 History amlodipine 10 mg tablet 10 mg PO DAILY 01/31/25 04/08/25 03/23/25 History fenofibrate 160 mg tablet 160 mg PO DAILY 01/31/25 04/08/25 03/23/25 History rnvhezcb-rn-xshiw 300 mcg-K 60 1 tab PO DAILY 01/31/25 04/08/25 03/23/25 History mcg-lycop 600 mcg-lutein 300 mcg tablet (Centrum Silver Men) topiramate 50 mg tablet 50 mg PO BEDTIME 01/31/25 04/08/25 03/23/25 History trazodone 100 mg tablet 100 mg PO BEDTIME insomnia 04/02/25 04/08/25 03/23/25 History Exam Height,Weight and Vital Signs: Height 5 ft 9 in Weight 111.6 kg Last Vital Signs Temp 97.6 F 05/02/25 06:37 Pulse 93 05/02/25 06:37 Resp 22 H 05/02/25 06:37 BP 134/88 05/02/25 06:37 Pulse Ox 96 05/02/25 06:37 O2 Del Method Room Air 05/02/25 06:37 O2 Flow Rate 2 04/30/25 08:45 Pertinent Lab Results Pertinent Lab Results: Laboratory Tests 04/10/25 04/21/25 07:56 09:08 Estimat Average Glucose 111 Hemoglobin A1c % 5.5 Magnesium 1.7 Total Bilirubin 0.5 Direct Bilirubin 0.2 AST 34 ALT 31 Alkaline Phosphatase 77 Ammonia 20 Total Protein 6.7 Albumin 4.1 Triglycerides 1009 H 380 H Cholesterol 253 H 158 LDL Cholesterol, Calc TNP 54 HDL Cholesterol 27 L 28 L Vitamin B12 504 Folate 14.7 TSH 4.62 H Free T4 0.83 Airway Mallampati Class: III TM Dist: >3cm Neck ROM: Full Heart: rrr Lungs: cta Assessment and Plan Assessment Anesthesia Assessment: Anesthesia Plan Discussed and Chart Reviewed Final Anesthetic Review Family History of Problems with Anesthesia: No History of Problems with Anesthesia: No NPO: Yes ASA Class: III Final Preanesthetic Review: No Changes in Pt Med Stat, Meds/Allgs Chart Reviewed and Consent Obtained/Reviewed Patient Risk: Intermediate Procedure Risk: Intermediate Anesthetic Plan Anesthetic Plan: GA Disposition: Standard PACU
--- NOTE | 2025-05-02 10:18 | P.PNPSI_ITS ---
Subjective Subjective Date of Service: 05/02/25 Reason For Visit: recurrent major depression, alcohol use disorder Subjective Notes: Conditional Voluntary Healthcare Proxy: No Guardianship: No Medical Problems Affecting Mental Status: No Interim History: ECT #6. Pt will continue treatments next week. is very upset-today has been caustic with team, with Matilde per their report. Call to who does not want pt to go to [facility] as she reports what she has read has not been appropriate reviews and she worries he will do poorly there and relapse. She reports she was told that drugs are sold at [facility]. We discussed that patients with both alcohol and substance addiction are treated there. Reviewed with the extensive efforts pt's social service coordinator, Thu has put into his treatment, bed searches and exploration of options for ongoing care. agrees that Thu has gone above and beyond, however, she continues to disagree with [facility]. She describes what has been read as frightening . Discussed parameters of pts current insurance and limited number of options. Encouraged her to [facility] to discuss options as pt will be making changes soon. Pt, post ECT denies SI,HI,AH,VH. He was informed he will not be going to [facility] and will have ECT on 05/05/25. Medication Compliance: Yes Side effects from medications: No Attending Groups: Intermittent Review of Systems Acute medical concerns: No Medical Review of Systems: unchanged Review of Systems Review of Systems post ECT today Mental Status Exam Mental Status Exam Patient Appearance: Appropriate Patient Orientation: Person, Place, Time and Situation Level of Consciousness: Drowsy and Sedated Patient Behavior: Talkative and Good Eye Contact Mood Description: Appropriate Affect Description: Appropriate and Flat Patient Cognition Impaired: No Ability to Follow Directions: Good Speech Pattern: Spontaneous Speech Memory Description: Episodic Impaired Hallucinations: None Delusions: Not Present Thought Process: Intact Thought Content: positive for Intact and positive for Suicidal Ideation (denies) Depressive Symptoms: Thoughts of /Suicide (denies) Judgement: Good Diagnostics Vital Signs (24Hr): Vital Signs - 24 hr 05/01/25 19:55 05/02/25 06:37 05/02/25 08:00 Temperature 98.4 F 97.6 F 98.7 F Pulse Rate 88 93 97 Respiratory Rate 20 22 H 17 Blood Pressure 131/72 134/88 169/90 H Pulse Oximetry 97 96 97 Oxygen Delivery Method Room Air Room Air Nasal Cannula Oxygen Flow Rate 5 05/02/25 08:05 05/02/25 08:10 05/02/25 08:15 Temperature Pulse Rate 103 H 101 H 105 H Respiratory Rate 20 20 20 Blood Pressure 180/93 H 156/82 H 187/96 H Pulse Oximetry 97 99 98 Oxygen Delivery Method Nasal Cannula Nasal Cannula Room Air Oxygen Flow Rate 3 3 05/02/25 08:30 05/02/25 08:42 Temperature 97.5 F Pulse Rate 101 H 98 Respiratory Rate 20 20 Blood Pressure 187/104 H 143/85 H Pulse Oximetry 100 98 Oxygen Delivery Method Room Air Room Air Oxygen Flow Rate BMI result Body Mass Index 36.3 Imaging Radiology Impressions: ITS Impressions Ankle X-Ray 04/11/25 13:50 IMPRESSION: Status post tibiotalar arthroplasty. Degenerative changes as described. Electronically signed by: Jony Olivas MD 04/11/2025 01:59 PM EST RP Foot X-Ray 04/11/25 13:51 IMPRESSION: Status post tibiotalar arthroplasty. Degenerative changes as described. Electronically signed by: Jony Olivas MD 04/11/2025 01:59 PM EST RP Medications Medications Current Medications Acetaminophen (Acetaminophen 325 Mg Tablet) 650 mg PO Q6H PRN PRN Reason: Headache/Pain, Scale 1-10 Last Admin: 04/26/25 11:20 Dose: 650 mg Al Hydroxide/Mg Hydroxide (Magnesium Hydrox/Alum Hydrox 30 Ml Oral.Susp) 30 ml PO Q6H PRN PRN Reason: Heartburn/Nausea Amlodipine Besylate (Amlodipine Besylate 10 Mg Tablet) 10 mg PO DAILY [facility]; Protocol Last Admin: 05/02/25 09:45 Dose: 10 mg Atorvastatin Calcium (Atorvastatin Calcium 80 Mg Tablet) 80 mg PO DAILY [facility] Last Admin: 05/02/25 09:45 Dose: 80 mg Clonidine HCl (Clonidine Hcl 0.1 Mg Tablet) 0.1 mg PO Q4H PRN; Protocol PRN Reason: severe anxiety Last Admin: 04/25/25 21:04 Dose: 0.1 mg Duloxetine HCl (Duloxetine Hcl 60 Mg Capsule.Dr) 60 mg PO DAILY PAYAM Last Admin: 05/02/25 09:45 Dose: 60 mg Ezetimibe (Ezetimibe 10 Mg Tablet) 10 mg PO DAILY [facility] Last Admin: 05/02/25 09:45 Dose: 10 mg Fenofibrate (Fenofibrate 160 Mg Tablet) 160 mg PO DAILY [facility] Last Admin: 05/02/25 09:45 Dose: 160 mg Folic Acid (Folic Acid 1 Mg Tablet) 1 mg PO DAILY [facility] Last Admin: 05/02/25 09:45 Dose: 1 mg Hydroxyzine HCl (Hydroxyzine Hcl 50 Mg Tablet) 50 mg PO Q6H PRN PRN Reason: mild anxiety Last Admin: 04/28/25 22:32 Dose: 50 mg Lactated Ringer's (Lr) 1,000 mls @ 50 mls/hr IVCONT .Q20H [facility] Last Infusion: 05/02/25 08:46 Dose: Infused Ibuprofen (Ibuprofen 800 Mg Tablet) 800 mg PO Q8H PRN PRN Reason: Headache/Pain, Scale 1-10 Lidocaine (Lidocaine 4 % Patch Adh..Patch) 0.5 patch TRANSDERMA DAILY PRN; Protocol PRN Reason: back pain Lurasidone HCl (Lurasidone Hcl 80 Mg Tablet) 80 mg PO 1700 [facility] Last Admin: 05/01/25 17:22 Dose: 80 mg Magnesium Hydroxide (Milk Of Magnesia 30 Ml Oral.Susp) 30 ml PO DAILY PRN PRN Reason: Constipation Methocarbamol (Methocarbamol 500 Mg Tablet) 500 mg PO TID [facility] Last Admin: 05/02/25 09:45 Dose: 500 mg Modafinil (Modafinil 100 Mg Tablet) 100 mg PO DAILY [facility] Last Admin: 05/02/25 09:45 Dose: 100 mg Multivitamins/Vitamin C (Multivitamin Tablet) 1 tab PO DAILY [facility] Last Admin: 05/02/25 09:45 Dose: 1 tab Naloxone HCl (Naloxone Hcl 0.4 Mg/Ml Vial) 0.04 mg IVPUSH Q5M PRN PRN Reason: Excessive sedation or RR < 8 Naltrexone HCl (Naltrexone Hcl 50 Mg Tablet) 50 mg PO DAILY [facility] Last Admin: 05/02/25 09:45 Dose: 50 mg Omeprazole (Omeprazole 20 Mg Capsule.Dr) 20 mg PO BEDTIME [facility] Last Admin: 05/01/25 20:44 Dose: 20 mg Quetiapine Fumarate (Quetiapine Fumarate 25 Mg Tablet) 25 mg PO TID PRN PRN Reason: breakthrough anxiety Last Admin: 04/28/25 22:32 Dose: 25 mg Thiamine HCl (Thiamine Hcl 100 Mg Tablet) 100 mg PO DAILY [facility] Last Admin: 05/02/25 09:45 Dose: 100 mg Topiramate (Topiramate 25 Mg Tablet) 50 mg PO BEDTIME [facility] Last Admin: 05/01/25 20:51 Dose: Not Given Trazodone HCl (Trazodone Hcl 100 Mg Tablet) 100 mg PO BEDTIME [facility] Last Admin: 05/01/25 20:44 Dose: 100 mg Trazodone HCl (Trazodone Hcl 50 Mg Tablet) 50 mg PO BEDTIME PRN PRN Reason: Insomnia Last Admin: 04/21/25 21:48 Dose: 50 mg Allergies Allergies Allergy/AdvReac Type Severity Reaction Status Date / Time No Known Allergies Allergy Verified 04/01/25 12:28 Assessment & Plan Assessment & Plan (1) Major depressive disorder, recurrent severe without psychotic features: Status: Acute Code(s): F33.2 - Major depressive disorder, recurrent severe without psychotic features (2) Hypertriglyceridemia: Status: Acute Code(s): E78.1 - Pure hyperglyceridemia Plan PLAN: 64-year-old male with medical history of hypertension, type 2 diabetes, hyperlipidemia, compression fracture of L1, and psychiatric history of major depressive disorder, anxiety, and suicidal ideation, presented to [facility] on 04/01/2025 for worsening depression, SI, and a fall. Imaging were unrevealing. He was transferred to the ICU for treatment of metabolic syndrome. He endorsed SI before his discharge from the medical unit and therefore was transferred to yesterday. On interview with this provider, patient states that the reason for his psychiatric admission is suicide ideation and severe depression. He reports severe depression on/off, mostly on for the past several years. He feels hopeless, helpless, and worthless. He lacks interest to do things and has low energy. His symptoms are usually well controlled while on medication. However, he relapsed on drinking alcohol 3 weeks ago and stopped taking his psychotropic medications. He was drinking 5 or more nips daily. Prior to his recent relapse, he was sober for 2 years. He admits that his drinking may have worsened his depressive symptoms. He states that he stopped taking his medications because I didn't care anymore. He currently experiencing severe anxiety and depression. Regarding question about suicide ideation, he states that he does not have a plan, but if I went to sleep, I don't care if don't wake up. He denies hypomania or kaveh episodes. He denies HI/AVH. He reports severe left-sided low back pain which started after he fell the day before he presented to [facility]. CT abdomen/pelvis revealed acute to subacute superior endplate compression fracture at L1. His goal for this hospitalization is that I want to feel better about myself, and to get back on his medications. Formulation/Clinical reasoning: Patient has chronic anxiety and depression symptoms which worsened in the past 3 weeks when he stopped taking his psychotropic medications and relapsed on alcohol. His symptoms are well controlled on medications. Will continue current treatment regimen and make adjustment as needed. If he fails to respond to treatment, ECT may be ideal since it was effective in the past. Referred to addiction medicine. Lidocaine patch ordered and PT referral made for back pain. 04/10: Patient continues to be severely anxious and depressed. He also continues to experience intermittent left-sided low back pain. No SI/HI/AVH. Continue current treatment regimen. Encourage groups and to engage in physical therapy. Patient may receive inpatient ECT if he does not improve. Verbalized understanding and agreed with the plan. 04/11: Continue tx ECT consult Encourage milieu Right foot/ankle xrays 04/12 Patient says that his mood is better but he remains very anxious. Discussed options and patient agrees to trying Seroquel p.r.n. after reviewing risks/side effects of antipsychotics. 04/14: The depression is somewhat less. Anxiety is high Reports anergy as well I will do what I need to to feel better. Reviewed in team with Dr. May and Dr. Jacob. Dr. May met with pt and ECT will begin on 04/21. Denies SI,HI,AH,VH, SIBS Reports an increase of sleep and intact appetite. Pt asks to return to a regular diet as he reports poor choices on diabetic regime. Also asks that he not receive a safety tray. Intermittent group attendance Over the weekend Clonidine ordered prn along with Seroquel prn and Lidocaine Patch for pain. No new medical/diagnostic results. Plan: Provigil trial. 04/15: Pt reports Provigil has helped this a.m. Pt agrees to ECT trial and will attend milieu groups and will agree to CSS post discharge when ECT is completed. Today, discussed antidepressant trials. Identifies Venlafaxine as most helpful by history. Discussed this, along with Cymbalta with some benefits for pain mgt. Pt would like to trial Cymbalta. Attending groups this afternoon. Plan: Cymbalta 20 mg daily 04/16: Team reports pt slept last evening. He received medical clearance for ECT today Tolerating Cymbalta, Provigil. Will begin Lexapro tapering to 15 mg this evening Not attending groups Rates anxiety/depressive sx 8 today. 04/17/25: Meet with patient in assigned room, report no issues with appetite or sleep. Report anxiety an 8/10 and depression a 7/10. He eats breakfast in room. Denies alcohol craving. Report he went to a group yesterday. Denies SI/SIB/HI/AVH Per nursing, meds compliant, slept for 7 hours, compliant with meds, no side effect. mostly isolated to self in room. Constricted affect.Continue to encourage group participation. 04/18/25: Pt denies SI,HI,AH,VH He is attending some groups He is visable today in the milieu. He has informed his he as a fracture in his back and is unsure of tx plan. called pt's social service coordinator to clarify. This was diagnosed when pt was on medicine, having a abdominal diagnostic. On 04/01 abdominal films for pancreatitis were completed. Compression Fx found on L1. STR was suggested by PT when discharged with no further recs when transferred to M[facility]. Nehemias Fuller of PT has been following pt on M5 with exercises, stretching and observation with ambulation. He will need OP PT upon DC. Pt is anxious, apprehensive regarding ECT, however believes this is the appropriate thing to do. Discussed Cymbalta titration to 30 mg and decrease of Escitalopram to 10 mg which he agrees with. 04/19/25: Met with patient in group room A where patient spent time after breakfast watching TV. Reports anxiety 7, and depression is 6/10. Reported that he went to 1 group yesterday. Per nursing, patient slept for 7 hours, compliant with medications. Denies side effects but reports some hand tremors which be from medication or from chronic alcohol abuse. We will continue to monitor. No SI/SIB/HI/AVH. Per ECT consult provider note: Patient has not had ongoing stability from depression for an extended period of time. 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 He did respond to a course of ECT in December and did speak with the patient at the only way that I would recommend another course of ECT at this time would be if the patient will willing to do aggressive treatment including possibility if residential sober home and show a commitment to sobriety otherwise his default appears to be to going back to drinking which also has involved not taking responsibility lack of honesty at times in what he is doing in unless he could commit to this that it would be very hard to achieve any stability. Patient appeared to understand this and patient wish strongly to go forward with ECT as he felt it had been quite helpful and agreed with the above provisions also discussed with the patient the ongoing in potentially severe medical consequences of his chronic alcohol use 04/20/25: Meet with patient in room where he is eating lunch. Report that he does not want to eat and be around with people. Denies sleeping or eating appetite uses. Continue report moderate to severe anxiety of a 7/10 and depression a 6/10. Denies SI/SIB/HI/AVH. Does not have alcohol craving at this moment. Flat/constricted affect. He is looking forward to having ECT tomorrow which he was told by his primary attending. Can observed him sometimes in dinning area but keep to self, not talk to anyone unless approach. Able to make needs known. Per nursing, patient slept for 8 hours, denies side effects from medications. Report to nursing staff with same anixety and depression level. Consistent with report. Continue with current plan. Nursing staff to prapare patient for ECT per protocol. 04/21/25: First ECT treatment today which was delayed until this afternoon. Got back from procedure, denies side effects. Denies BRAXTON but feel a little bit tired. Report anxiety and depression as moderate. No behavior issues. Resting in bed after ECT. Encourage groups when able to/ tolerated. Denies SI/SIB/HI/AVH. Flat affect. Continue with current plan. Lipid profile: elevated. 04/22/25:Trever reports his first ECT went well and he is looking forward to continuing the series. No adverse effects reported from cross taper from Escitalopram to Duloxetine, will continue that this evening. Pt reports he is attending some groups, today, however, he is resting in bed (no groups currently occurring, however he does have a list on his bedside table). Denies SI, HI,AH, VH. Plan: Continue tx 04/23/25: ECT Treatment #2. Attending groups, Resting this afternoon, tired after the treatment. Denies SI,HI,AH,VH. I am trying . Team attempting to assist pt to be more engaged and active when in group. Continue tx. 04/24/25: Continue tx. 04/25/25: Continue tx. 04/26/25:Reviewed with team and reviewed plan of care. Team reports minimal improvement with ECT #3 Met with pt who appears brighter and who is up and about the unit this a.m. This afternoon, pt is in bed, reporting post ECT headache has not really resolved from 04/25, however, he feels the depression is decreasing. Ibuprofen ordered prn for headache. 04/28: Continue tx 05/02/25: ECT #6. Pt will continue treatments next week. is very upset-today has been caustic with team, with Matilde per their report. Call to who does not want pt to go to [facility] as she reports what she has read has not been appropriate reviews and she worries he will do poorly there and relapse. She reports she was told that drugs are sold at [facility]. We discussed that patients with both alcohol and substance addiction are treated there. Reviewed with the extensive efforts pt's social service coordinator, Thu has put into his treatment, bed searches and exploration of options for ongoing care. agrees that Thu has gone above and beyond, however, she continues to disagree with [facility]. She describes what has been read as frightening . Discussed parameters of pts current insurance and limited number of options. Encouraged her to contact [facility] to discuss options as pt will be making changes soon. Pt, post ECT denies SI,HI,AH,VH. He was informed he will not be going to [facility] and will have ECT on 05/05/25. Plan CV Q15min ECT #1: 04/21/25. ECT #4 04/29/25 ECT #5 pending on 04/30 -Add Seroquel 25 mg p.r.n. for anxiety Diagnostics as needed. Collateral contact. Continue remainder of regime. Encouraged full milieu. Discharge planning. Reason for continued inpatient stay Substantial Risk for: rapid decompensation Time Spent With Patient Time: Total time managing care of this patient today ____ minutes.
[2025-05-03 08:43] VITALS: BP 166/69; PULSE 87; RESP 20; TEMP 37.3; O2SAT 96
--- NOTE | 2025-05-03 09:52 | HO.PSYCHPN ---
Subjective Subjective Date of Service: 05/03/25 Reason For Visit: recurrent major depression, alcohol use disorder Interim History: met with patient; discussed with team; reviewed chart Patient reports that he is good and looking forward to discharge; discussed how he is working with social work regarding a specific program. Says he plans to get ECT on Monday Mental Status Exam Mental Status Exam Narrative: Pt is alert and oriented; behavior is cooperative, friendly and calm; patient is not in distress; dressed in casual attire adequately groomed and with good hygiene; mood is described as good and affect congruent, bright; eye contact appropriate; Speech is normal rate, volume and prosody and not pressured; no psychomotor agitation/retardation present; thought process is organized and goal directed; Thought content is on tx; otherwise pertinent to relevant topics and without any delusional content, paranoid ideations or grandiosity; denies any SI/HI. Denies AVH and there is no evidence of perceptual disturbance. Patients insight and judgment appear intact. Diagnostics Vital Signs (24Hr): Vital Signs - 24 hr 05/02/25 20:00 05/03/25 08:43 Temperature 98.4 F 99.1 F Pulse Rate 95 87 Respiratory Rate 18 20 Blood Pressure 156/83 H 166/69 H Pulse Oximetry 96 96 Oxygen Delivery Method Room Air Room Air BMI result Body Mass Index 36.3 Imaging Radiology Impressions: ITS Impressions Ankle X-Ray 04/11/25 13:50 IMPRESSION: Status post tibiotalar arthroplasty. Degenerative changes as described. Electronically signed by: Jony Olivas MD 04/11/2025 01:59 PM EST RP Foot X-Ray 04/11/25 13:51 IMPRESSION: Status post tibiotalar arthroplasty. Degenerative changes as described. Electronically signed by: Jony Olivas MD 04/11/2025 01:59 PM EST RP Medications Medications Current Medications Acetaminophen (Acetaminophen 325 Mg Tablet) 650 mg PO Q6H PRN PRN Reason: Headache/Pain, Scale 1-10 Last Admin: 04/26/25 11:20 Dose: 650 mg Al Hydroxide/Mg Hydroxide (Magnesium Hydrox/Alum Hydrox 30 Ml Oral.Susp) 30 ml PO Q6H PRN PRN Reason: Heartburn/Nausea Amlodipine Besylate (Amlodipine Besylate 10 Mg Tablet) 10 mg PO DAILY PAYAM; Protocol Last Admin: 05/03/25 09:10 Dose: 10 mg Atorvastatin Calcium (Atorvastatin Calcium 80 Mg Tablet) 80 mg PO DAILY [facility] Last Admin: 05/03/25 09:16 Dose: Not Given Clonidine HCl (Clonidine Hcl 0.1 Mg Tablet) 0.1 mg PO Q4H PRN; Protocol PRN Reason: severe anxiety Last Admin: 04/25/25 21:04 Dose: 0.1 mg Duloxetine HCl (Duloxetine Hcl 60 Mg Capsule.Dr) 60 mg PO DAILY [facility] Last Admin: 05/03/25 09:10 Dose: 60 mg Ezetimibe (Ezetimibe 10 Mg Tablet) 10 mg PO DAILY [facility] Last Admin: 05/03/25 09:11 Dose: 10 mg Fenofibrate (Fenofibrate 160 Mg Tablet) 160 mg PO DAILY [facility] Last Admin: 05/03/25 09:11 Dose: 160 mg Folic Acid (Folic Acid 1 Mg Tablet) 1 mg PO DAILY [facility] Last Admin: 05/03/25 09:11 Dose: 1 mg Hydroxyzine HCl (Hydroxyzine Hcl 50 Mg Tablet) 50 mg PO Q6H PRN PRN Reason: mild anxiety Last Admin: 04/28/25 22:32 Dose: 50 mg Lactated Ringer's (Lr) 1,000 mls @ 50 mls/hr IVCONT .Q20H [facility] Last Infusion: 05/02/25 08:46 Dose: Infused Ibuprofen (Ibuprofen 800 Mg Tablet) 800 mg PO Q8H PRN PRN Reason: Headache/Pain, Scale 1-10 Lidocaine (Lidocaine 4 % Patch Adh..Patch) 0.5 patch TRANSDERMA DAILY PRN; Protocol PRN Reason: back pain Lurasidone HCl (Lurasidone Hcl 80 Mg Tablet) 80 mg PO 1700 [facility] Last Admin: 05/02/25 16:52 Dose: 80 mg Magnesium Hydroxide (Milk Of Magnesia 30 Ml Oral.Susp) 30 ml PO DAILY PRN PRN Reason: Constipation Methocarbamol (Methocarbamol 500 Mg Tablet) 500 mg PO TID [facility] Last Admin: 05/03/25 09:11 Dose: 500 mg Modafinil (Modafinil 100 Mg Tablet) 100 mg PO DAILY [facility] Last Admin: 05/03/25 09:10 Dose: 100 mg Multivitamins/Vitamin C (Multivitamin Tablet) 1 tab PO DAILY [facility] Last Admin: 05/03/25 09:11 Dose: 1 tab Naloxone HCl (Naloxone Hcl 0.4 Mg/Ml Vial) 0.04 mg IVPUSH Q5M PRN PRN Reason: Excessive sedation or RR < 8 Naltrexone HCl (Naltrexone Hcl 50 Mg Tablet) 50 mg PO DAILY [facility] Last Admin: 05/03/25 09:10 Dose: 50 mg Omeprazole (Omeprazole 20 Mg Capsule.Dr) 20 mg PO BEDTIME [facility] Last Admin: 05/02/25 20:43 Dose: 20 mg Quetiapine Fumarate (Quetiapine Fumarate 25 Mg Tablet) 25 mg PO TID PRN PRN Reason: breakthrough anxiety Last Admin: 04/28/25 22:32 Dose: 25 mg Thiamine HCl (Thiamine Hcl 100 Mg Tablet) 100 mg PO DAILY [facility] Last Admin: 05/03/25 09:11 Dose: 100 mg Topiramate (Topiramate 25 Mg Tablet) 50 mg PO BEDTIME [facility] Last Admin: 05/02/25 20:43 Dose: 50 mg Trazodone HCl (Trazodone Hcl 100 Mg Tablet) 100 mg PO BEDTIME [facility] Last Admin: 05/02/25 20:43 Dose: 100 mg Trazodone HCl (Trazodone Hcl 50 Mg Tablet) 50 mg PO BEDTIME PRN PRN Reason: Insomnia Last Admin: 04/21/25 21:48 Dose: 50 mg Allergies Allergies Allergy/AdvReac Type Severity Reaction Status Date / Time No Known Allergies Allergy Verified 04/01/25 12:28 Assessment & Plan Assessment & Plan (1) Major depressive disorder, recurrent severe without psychotic features: Status: Acute Code(s): F33.2 - Major depressive disorder, recurrent severe without psychotic features (2) Hypertriglyceridemia: Status: Acute Code(s): E78.1 - Pure hyperglyceridemia Plan PLAN: 64-year-old male with medical history of hypertension, type 2 diabetes, hyperlipidemia, compression fracture of L1, and psychiatric history of major depressive disorder, anxiety, and suicidal ideation, presented to [facility] on 04/01/2025 for worsening depression, SI, and a fall. Imaging were unrevealing. He was transferred to the ICU for treatment of metabolic syndrome. He endorsed SI before his discharge from the medical unit and therefore was transferred to yesterday. On interview with this provider, patient states that the reason for his psychiatric admission is suicide ideation and severe depression. He reports severe depression on/off, mostly on for the past several years. He feels hopeless, helpless, and worthless. He lacks interest to do things and has low energy. His symptoms are usually well controlled while on medication. However, he relapsed on drinking alcohol 3 weeks ago and stopped taking his psychotropic medications. He was drinking 5 or more nips daily. Prior to his recent relapse, he was sober for 2 years. He admits that his drinking may have worsened his depressive symptoms. He states that he stopped taking his medications because I didn't care anymore. He currently experiencing severe anxiety and depression. Regarding question about suicide ideation, he states that he does not have a plan, but if I went to sleep, I don't care if don't wake up. He denies hypomania or kaveh episodes. He denies HI/AVH. He reports severe left-sided low back pain which started after he fell the day before he presented to [facility]. CT abdomen/pelvis revealed acute to subacute superior endplate compression fracture at L1. His goal for this hospitalization is that I want to feel better about myself, and to get back on his medications. Formulation/Clinical reasoning: Patient has chronic anxiety and depression symptoms which worsened in the past 3 weeks when he stopped taking his psychotropic medications and relapsed on alcohol. His symptoms are well controlled on medications. Will continue current treatment regimen and make adjustment as needed. If he fails to respond to treatment, ECT may be ideal since it was effective in the past. Referred to addiction medicine. Lidocaine patch ordered and PT referral made for back pain. 04/10: Patient continues to be severely anxious and depressed. He also continues to experience intermittent left-sided low back pain. No SI/HI/AVH. Continue current treatment regimen. Encourage groups and to engage in physical therapy. Patient may receive inpatient ECT if he does not improve. Verbalized understanding and agreed with the plan. 04/11: Continue tx ECT consult Encourage milieu Right foot/ankle xrays 04/12 Patient says that his mood is better but he remains very anxious. Discussed options and patient agrees to trying Seroquel p.r.n. after reviewing risks/side effects of antipsychotics. 04/14: The depression is somewhat less. Anxiety is high Reports anergy as well I will do what I need to to feel better. Reviewed in team with Dr. May and Dr. Jacob. Dr. May met with pt and ECT will begin on 04/21. Denies SI,HI,AH,VH, SIBS Reports an increase of sleep and intact appetite. Pt asks to return to a regular diet as he reports poor choices on diabetic regime. Also asks that he not receive a safety tray. Intermittent group attendance Over the weekend Clonidine ordered prn along with Seroquel prn and Lidocaine Patch for pain. No new medical/diagnostic results. Plan: Provigil trial. 04/15: Pt reports Provigil has helped this a.m. Pt agrees to ECT trial and will attend milieu groups and will agree to CSS post discharge when ECT is completed. Today, discussed antidepressant trials. Identifies Venlafaxine as most helpful by history. Discussed this, along with Cymbalta with some benefits for pain mgt. Pt would like to trial Cymbalta. Attending groups this afternoon. Plan: Cymbalta 20 mg daily 04/16: Team reports pt slept last evening. He received medical clearance for ECT today Tolerating Cymbalta, Provigil. Will begin Lexapro tapering to 15 mg this evening Not attending groups Rates anxiety/depressive sx 8 today. 04/17/25: Meet with patient in assigned room, report no issues with appetite or sleep. Report anxiety an 8/10 and depression a 7/10. He eats breakfast in room. Denies alcohol craving. Report he went to a group yesterday. Denies SI/SIB/HI/AVH Per nursing, meds compliant, slept for 7 hours, compliant with meds, no side effect. mostly isolated to self in room. Constricted affect.Continue to encourage group participation. 04/18/25: Pt denies SI,HI,AH,VH He is attending some groups He is visable today in the milieu. He has informed his he as a fracture in his back and is unsure of tx plan. called pt's social service technician to clarify. This was diagnosed when pt was on medicine, having a abdominal diagnostic. On 04/01 abdominal films for pancreatitis were completed. Compression Fx found on L1. STR was suggested by PT when discharged with no further recs when transferred to . Nehemias Fuller of PT has been following pt on M5 with exercises, stretching and observation with ambulation. He will need OP PT upon DC. Pt is anxious, apprehensive regarding ECT, however believes this is the appropriate thing to do. Discussed Cymbalta titration to 30 mg and decrease of Escitalopram to 10 mg which he agrees with. 04/19/25: Met with patient in group room A where patient spent time after breakfast watching TV. Reports anxiety 7, and depression is 6/10. Reported that he went to 1 group yesterday. Per nursing, patient slept for 7 hours, compliant with medications. Denies side effects but reports some hand tremors which be from medication or from chronic alcohol abuse. We will continue to monitor. No SI/SIB/HI/AVH. Per ECT consult provider note: Patient has not had ongoing stability from depression for an extended period of time. 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 He did respond to a course of ECT in December and did speak with the patient at the only way that I would recommend another course of ECT at this time would be if the patient will willing to do aggressive treatment including possibility if residential sober home and show a commitment to sobriety otherwise his default appears to be to going back to drinking which also has involved not taking responsibility lack of honesty at times in what he is doing in unless he could commit to this that it would be very hard to achieve any stability. Patient appeared to understand this and patient wish strongly to go forward with ECT as he felt it had been quite helpful and agreed with the above provisions also discussed with the patient the ongoing in potentially severe medical consequences of his chronic alcohol use 04/20/25: Meet with patient in room where he is eating lunch. Report that he does not want to eat and be around with people. Denies sleeping or eating appetite uses. Continue report moderate to severe anxiety of a 7/10 and depression a 6/10. Denies SI/SIB/HI/AVH. Does not have alcohol craving at this moment. Flat/constricted affect. He is looking forward to having ECT tomorrow which he was told by his primary attending. Can observed him sometimes in dinning area but keep to self, not talk to anyone unless approach. Able to make needs known. Per nursing, patient slept for 8 hours, denies side effects from medications. Report to nursing staff with same anixety and depression level. Consistent with report. Continue with current plan. Nursing staff to prapare patient for ECT per protocol. 04/21/25: First ECT treatment today which was delayed until this afternoon. Got back from procedure, denies side effects. Denies BRAXTON but feel a little bit tired. Report anxiety and depression as moderate. No behavior issues. Resting in bed after ECT. Encourage groups when able to/ tolerated. Denies SI/SIB/HI/AVH. Flat affect. Continue with current plan. Lipid profile: elevated. 04/22/25:Trever reports his first ECT went well and he is looking forward to continuing the series. No adverse effects reported from cross taper from Escitalopram to Duloxetine, will continue that this evening. Pt reports he is attending some groups, today, however, he is resting in bed (no groups currently occurring, however he does have a list on his bedside table). Denies SI, HI,AH, VH. Plan: Continue tx 04/23/25: ECT Treatment #2. Attending groups, Resting this afternoon, tired after the treatment. Denies SI,HI,AH,VH. I am trying . Team attempting to assist pt to be more engaged and active when in group. Continue tx. 04/24/25: Continue tx. 04/25/25: Continue tx. 04/26/25:Reviewed with team and reviewed plan of care. Team reports minimal improvement with ECT #3 Met with pt who appears brighter and who is up and about the unit this a.m. This afternoon, pt is in bed, reporting post ECT headache has not really resolved from 04/25, however, he feels the depression is decreasing. Ibuprofen ordered prn for headache. 04/28: Continue tx 05/02/25: ECT #6. Pt will continue treatments next week. is very upset-today has been caustic with team, with Matilde per their report. Call to who does not want pt to go to [facility] as she reports what she has read has not been appropriate reviews and she worries he will do poorly there and relapse. She reports she was told that drugs are sold at [facility]. We discussed that patients with both alcohol and substance addiction are treated there. Reviewed with the extensive efforts pt's social service technician, Thu has put into his treatment, bed searches and exploration of options for ongoing care. agrees that Thu has gone above and beyond, however, she continues to disagree with [facility]. She describes what has been read as frightening . Discussed parameters of pts current insurance and limited number of options. Encouraged her to contact [facility] to discuss options as pt will be making changes soon. Pt, post ECT denies SI,HI,AH,VH. He was informed he will not be going to [facility] and will have ECT on 05/05/25. 05/03Patient reports that he is good and looking forward to discharge; discussed how he is working with social work regarding a specific program. Says he plans to get ECT on Monday Patient is stable on current medications; he is in good behavioral and impulse control and appropriate with peers and staff Plan CV Q15min ECT #1: 04/21/25. ECT #4 04/29/25 ECT #5 04/30 ECT #6 05/02 ECT #5 [id number] -Add Seroquel 25 mg p.r.n. for anxiety Diagnostics as needed. Collateral contact. Continue remainder of regime. Encouraged full milieu. Discharge planning. Patient educated on: diagnosis, substance abuse, ECT and therapeutic strategies Informed Consent: understands Reason for continued inpatient stay Substantial Risk for: stable for discharge Time Spent With Patient Time: Total time managing care of this patient today ____ minutes.
[2025-05-03 20:05] VITALS: BP 126/73; PULSE 100; RESP 18; TEMP 38.7; O2SAT 98
[2025-05-04 08:09] VITALS: BP 135/80; PULSE 87; TEMP 36.9; O2SAT 98
--- NOTE | 2025-05-04 16:53 | HO.PSYCHPN ---
Subjective Subjective Date of Service: 05/04/25 Reason For Visit: recurrent major depression, alcohol use disorder Interim History: Met with patient; discussed with team Patient reports he remains good mood. Discussed ECT which he plans to get him Monday. Highway Maintenance Supervisor looked at ECT schedule and patient is on it. Will make him NPO tonight Mental Status Exam Mental Status Exam Narrative: Pt is alert and oriented; behavior is cooperative, friendly and calm; patient is not in distress; dressed in casual attire adequately groomed and with good hygiene; mood is described as good and affect congruent, bright; eye contact appropriate; Speech is normal rate, volume and prosody and not pressured; no psychomotor agitation/retardation present; thought process is organized and goal directed; Thought content is on tx; otherwise pertinent to relevant topics and without any delusional content, paranoid ideations or grandiosity; denies any SI/HI. Denies AVH and there is no evidence of perceptual disturbance. Patients insight and judgment appear intact. Diagnostics Vital Signs (24Hr): Vital Signs - 24 hr 05/03/25 20:05 05/04/25 08:09 Temperature 101.7 F H 98.5 F Pulse Rate 100 87 Respiratory Rate 18 Blood Pressure 126/73 135/80 Pulse Oximetry 98 98 Oxygen Delivery Method Room Air Room Air BMI result Body Mass Index 36.3 Imaging Radiology Impressions: ITS Impressions Ankle X-Ray 04/11/25 13:50 IMPRESSION: Status post tibiotalar arthroplasty. Degenerative changes as described. Electronically signed by: Jony Olivas MD 04/11/2025 01:59 PM EST RP Foot X-Ray 04/11/25 13:51 IMPRESSION: Status post tibiotalar arthroplasty. Degenerative changes as described. Electronically signed by: Jony Olivas MD 04/11/2025 01:59 PM EST RP Medications Medications Current Medications Acetaminophen (Acetaminophen 325 Mg Tablet) 650 mg PO Q6H PRN PRN Reason: Headache/Pain, Scale 1-10 Last Admin: 04/26/25 11:20 Dose: 650 mg Al Hydroxide/Mg Hydroxide (Magnesium Hydrox/Alum Hydrox 30 Ml Oral.Susp) 30 ml PO Q6H PRN PRN Reason: Heartburn/Nausea Amlodipine Besylate (Amlodipine Besylate 10 Mg Tablet) 10 mg PO DAILY [facility]; Protocol Last Admin: 05/04/25 08:50 Dose: 10 mg Atorvastatin Calcium (Atorvastatin Calcium 80 Mg Tablet) 80 mg PO BEDTIME [facility] Last Admin: 05/03/25 21:16 Dose: 80 mg Clonidine HCl (Clonidine Hcl 0.1 Mg Tablet) 0.1 mg PO Q4H PRN; Protocol PRN Reason: severe anxiety Last Admin: 04/25/25 21:04 Dose: 0.1 mg Duloxetine HCl (Duloxetine Hcl 60 Mg Capsule.Dr) 60 mg PO DAILY [facility] Last Admin: 05/04/25 08:50 Dose: 60 mg Ezetimibe (Ezetimibe 10 Mg Tablet) 10 mg PO DAILY [facility] Last Admin: 05/04/25 08:50 Dose: 10 mg Fenofibrate (Fenofibrate 160 Mg Tablet) 160 mg PO DAILY [facility] Last Admin: 05/04/25 08:49 Dose: 160 mg Folic Acid (Folic Acid 1 Mg Tablet) 1 mg PO DAILY [facility] Last Admin: 05/04/25 08:50 Dose: 1 mg Hydroxyzine HCl (Hydroxyzine Hcl 50 Mg Tablet) 50 mg PO Q6H PRN PRN Reason: mild anxiety Last Admin: 04/28/25 22:32 Dose: 50 mg Ibuprofen (Ibuprofen 800 Mg Tablet) 800 mg PO Q8H PRN PRN Reason: Headache/Pain, Scale 1-10 Lidocaine (Lidocaine 4 % Patch Adh..Patch) 0.5 patch TRANSDERMA DAILY PRN; Protocol PRN Reason: back pain Lurasidone HCl (Lurasidone Hcl 80 Mg Tablet) 80 mg PO 1700 [facility] Last Admin: 05/03/25 17:10 Dose: 80 mg Magnesium Hydroxide (Milk Of Magnesia 30 Ml Oral.Susp) 30 ml PO DAILY PRN PRN Reason: Constipation Methocarbamol (Methocarbamol 500 Mg Tablet) 500 mg PO TID [facility] Last Admin: 05/04/25 14:25 Dose: 500 mg Modafinil (Modafinil 100 Mg Tablet) 100 mg PO DAILY [facility] Last Admin: 05/04/25 08:50 Dose: 100 mg Multivitamins/Vitamin C (Multivitamin Tablet) 1 tab PO DAILY [facility] Last Admin: 05/04/25 08:50 Dose: 1 tab Naloxone HCl (Naloxone Hcl 0.4 Mg/Ml Vial) 0.04 mg IVPUSH Q5M PRN PRN Reason: Excessive sedation or RR < 8 Naltrexone HCl (Naltrexone Hcl 50 Mg Tablet) 50 mg PO DAILY [facility] Last Admin: 05/04/25 08:50 Dose: 50 mg Omeprazole (Omeprazole 20 Mg Capsule.Dr) 20 mg PO BEDTIME [facility] Last Admin: 05/03/25 21:16 Dose: 20 mg Quetiapine Fumarate (Quetiapine Fumarate 25 Mg Tablet) 25 mg PO TID PRN PRN Reason: breakthrough anxiety Last Admin: 04/28/25 22:32 Dose: 25 mg Thiamine HCl (Thiamine Hcl 100 Mg Tablet) 100 mg PO DAILY [facility] Last Admin: 05/04/25 08:50 Dose: 100 mg Topiramate (Topiramate 25 Mg Tablet) 50 mg PO BEDTIME [facility] Last Admin: 05/03/25 21:17 Dose: 50 mg Trazodone HCl (Trazodone Hcl 100 Mg Tablet) 100 mg PO BEDTIME [facility] Last Admin: 05/03/25 21:16 Dose: 100 mg Trazodone HCl (Trazodone Hcl 50 Mg Tablet) 50 mg PO BEDTIME PRN PRN Reason: Insomnia Last Admin: 04/21/25 21:48 Dose: 50 mg Allergies Allergies Allergy/AdvReac Type Severity Reaction Status Date / Time No Known Allergies Allergy Verified 04/01/25 12:28 Assessment & Plan Assessment & Plan (1) Major depressive disorder, recurrent severe without psychotic features: Status: Acute Code(s): F33.2 - Major depressive disorder, recurrent severe without psychotic features (2) Hypertriglyceridemia: Status: Acute Code(s): E78.1 - Pure hyperglyceridemia Plan PLAN: 64-year-old male with medical history of hypertension, type 2 diabetes, hyperlipidemia, compression fracture of L1, and psychiatric history of major depressive disorder, anxiety, and suicidal ideation, presented to [facility] ED on 04/01/2025 for worsening depression, SI, and a fall. Imaging were unrevealing. He was transferred to the ICU for treatment of metabolic syndrome. He endorsed SI before his discharge from the medical unit and therefore was transferred to yesterday. On interview with this provider, patient states that the reason for his psychiatric admission is suicide ideation and severe depression. He reports severe depression on/off, mostly on for the past several years. He feels hopeless, helpless, and worthless. He lacks interest to do things and has low energy. His symptoms are usually well controlled while on medication. However, he relapsed on drinking alcohol 3 weeks ago and stopped taking his psychotropic medications. He was drinking 5 or more nips daily. Prior to his recent relapse, he was sober for 2 years. He admits that his drinking may have worsened his depressive symptoms. He states that he stopped taking his medications because I didn't care anymore. He currently experiencing severe anxiety and depression. Regarding question about suicide ideation, he states that he does not have a plan, but if I went to sleep, I don't care if don't wake up. He denies hypomania or kaveh episodes. He denies HI/AVH. He reports severe left-sided low back pain which started after he fell the day before he presented to [facility] ED. CT abdomen/pelvis revealed acute to subacute superior endplate compression fracture at L1. His goal for this hospitalization is that I want to feel better about myself, and to get back on his medications. Formulation/Clinical reasoning: Patient has chronic anxiety and depression symptoms which worsened in the past 3 weeks when he stopped taking his psychotropic medications and relapsed on alcohol. His symptoms are well controlled on medications. Will continue current treatment regimen and make adjustment as needed. If he fails to respond to treatment, ECT may be ideal since it was effective in the past. Referred to addiction medicine. Lidocaine patch ordered and PT referral made for back pain. 04/10: Patient continues to be severely anxious and depressed. He also continues to experience intermittent left-sided low back pain. No SI/HI/AVH. Continue current treatment regimen. Encourage groups and to engage in physical therapy. Patient may receive inpatient ECT if he does not improve. Verbalized understanding and agreed with the plan. 04/11: Continue tx ECT consult Encourage milieu Right foot/ankle xrays 04/12 Patient says that his mood is better but he remains very anxious. Discussed options and patient agrees to trying Seroquel p.r.n. after reviewing risks/side effects of antipsychotics. 04/14: The depression is somewhat less. Anxiety is high Reports anergy as well I will do what I need to to feel better. Reviewed in team with Dr. May and Dr. Jacob. Dr. May met with pt and ECT will begin on 04/21. Denies SI,HI,AH,VH, SIBS Reports an increase of sleep and intact appetite. Pt asks to return to a regular diet as he reports poor choices on diabetic regime. Also asks that he not receive a safety tray. Intermittent group attendance Over the weekend Clonidine ordered prn along with Seroquel prn and Lidocaine Patch for pain. No new medical/diagnostic results. Plan: Provigil trial. 04/15: Pt reports Provigil has helped this a.m. Pt agrees to ECT trial and will attend milieu groups and will agree to CSS post discharge when ECT is completed. Today, discussed antidepressant trials. Identifies Venlafaxine as most helpful by history. Discussed this, along with Cymbalta with some benefits for pain mgt. Pt would like to trial Cymbalta. Attending groups this afternoon. Plan: Cymbalta 20 mg daily 04/16: Team reports pt slept last evening. He received medical clearance for ECT today Tolerating Cymbalta, Provigil. Will begin Lexapro tapering to 15 mg this evening Not attending groups Rates anxiety/depressive sx 8 today. 04/17/25: Meet with patient in assigned room, report no issues with appetite or sleep. Report anxiety an 8/10 and depression a 7/10. He eats breakfast in room. Denies alcohol craving. Report he went to a group yesterday. Denies SI/SIB/HI/AVH Per nursing, meds compliant, slept for 7 hours, compliant with meds, no side effect. mostly isolated to self in room. Constricted affect.Continue to encourage group participation. 04/18/25: Pt denies SI,HI,AH,VH He is attending some groups He is visable today in the milieu. He has informed his he as a fracture in his back and is unsure of tx plan. called pt's manager social media to clarify. This was diagnosed when pt was on medicine, having a abdominal diagnostic. On 04/01 abdominal films for pancreatitis were completed. Compression Fx found on L1. STR was suggested by PT when discharged with no further recs when transferred to . Nehemias Fuller of PT has been following pt on M5 with exercises, stretching and observation with ambulation. He will need OP PT upon DC. Pt is anxious, apprehensive regarding ECT, however believes this is the appropriate thing to do. Discussed Cymbalta titration to 30 mg and decrease of Escitalopram to 10 mg which he agrees with. 04/19/25: Met with patient in group room A where patient spent time after breakfast watching TV. Reports anxiety 7, and depression is 6/10. Reported that he went to 1 group yesterday. Per nursing, patient slept for 7 hours, compliant with medications. Denies side effects but reports some hand tremors which be from medication or from chronic alcohol abuse. We will continue to monitor. No SI/SIB/HI/AVH. Per ECT consult provider note: Patient has not had ongoing stability from depression for an extended period of time. 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 He did respond to a course of ECT in December and did speak with the patient at the only way that I would recommend another course of ECT at this time would be if the patient will willing to do aggressive treatment including possibility if residential sober home and show a commitment to sobriety otherwise his default appears to be to going back to drinking which also has involved not taking responsibility lack of honesty at times in what he is doing in unless he could commit to this that it would be very hard to achieve any stability. Patient appeared to understand this and patient wish strongly to go forward with ECT as he felt it had been quite helpful and agreed with the above provisions also discussed with the patient the ongoing in potentially severe medical consequences of his chronic alcohol use 04/20/25: Meet with patient in room where he is eating lunch. Report that he does not want to eat and be around with people. Denies sleeping or eating appetite uses. Continue report moderate to severe anxiety of a 7/10 and depression a 6/10. Denies SI/SIB/HI/AVH. Does not have alcohol craving at this moment. Flat/constricted affect. He is looking forward to having ECT tomorrow which he was told by his primary attending. Can observed him sometimes in dinning area but keep to self, not talk to anyone unless approach. Able to make needs known. Per nursing, patient slept for 8 hours, denies side effects from medications. Report to nursing staff with same anixety and depression level. Consistent with report. Continue with current plan. Nursing staff to prapare patient for ECT per protocol. 04/21/25: First ECT treatment today which was delayed until this afternoon. Got back from procedure, denies side effects. Denies [place] but feel a little bit tired. Report anxiety and depression as moderate. No behavior issues. Resting in bed after ECT. Encourage groups when able to/ tolerated. Denies SI/SIB/HI/AVH. Flat affect. Continue with current plan. Lipid profile: elevated. 04/22/25:Trever reports his first ECT went well and he is looking forward to continuing the series. No adverse effects reported from cross taper from Escitalopram to Duloxetine, will continue that this evening. Pt reports he is attending some groups, today, however, he is resting in bed (no groups currently occurring, however he does have a list on his bedside table). Denies SI, HI,AH, VH. Plan: Continue tx 04/23/25: ECT Treatment #2. Attending groups, Resting this afternoon, tired after the treatment. Denies SI,HI,AH,VH. I am trying . Team attempting to assist pt to be more engaged and active when in group. Continue tx. 04/24/25: Continue tx. 04/25/25: Continue tx. 04/26/25:Reviewed with team and reviewed plan of care. Team reports minimal improvement with ECT #3 Met with pt who appears brighter and who is up and about the unit this a.m. This afternoon, pt is in bed, reporting post ECT headache has not really resolved from 04/25, however, he feels the depression is decreasing. Ibuprofen ordered prn for headache. 04/28: Continue tx 05/02/25: ECT #6. Pt will continue treatments next week. is very upset-today has been caustic with team, with [place] per their report. Call to who does not want pt to go to [facility] as she reports what she has read has not been appropriate reviews and she worries he will do poorly there and relapse. She reports she was told that drugs are sold at [facility]. We discussed that patients with both alcohol and substance addiction are treated there. Reviewed with the extensive efforts pt's manager social media, Thu has put into his treatment, bed searches and exploration of options for ongoing care. agrees that Thu has gone above and beyond, however, she continues to disagree with [facility]. She describes what has been read as frightening . Discussed parameters of pts current insurance and limited number of options. Encouraged her to contact [facility] to discuss options as pt will be making changes soon. Pt, post ECT denies SI,HI,AH,VH. He was informed he will not be going to [facility] and will have ECT on 05/05/25. 05/03Patient reports that he is good and looking forward to discharge; discussed how he is working with social work regarding a specific program. Says he plans to get ECT on Friday 05/04 remains doing well; ECT tomorrow Patient is stable on current medications; he is in good behavioral and impulse control and appropriate with peers and staff Plan CV Q15min ECT #1: 04/21/25. ECT #4 04/29/25 ECT #5 04/30 ECT #6 05/02 ECT #5 [id number] -Add Seroquel 25 mg p.r.n. for anxiety Diagnostics as needed. Collateral contact. Continue remainder of regime. Encouraged full milieu. Discharge planning. Patient educated on: diagnosis and ECT Informed Consent: understands Reason for continued inpatient stay Substantial Risk for: stable for discharge Time Spent With Patient Time: Total time managing care of this patient today ____ minutes.
[2025-05-04 20:00] VITALS: BP 110/62; PULSE 91; RESP 18; TEMP 36.9; O2SAT 97
[2025-05-05] VITALS (10 sets, daily range): BP systolic 104–138; BP diastolic 70–105; PULSE 80–91; RESP 16–18; TEMP 36.2–36.9; O2SAT 94–99
--- NOTE | 2025-05-05 10:06 | P.PNPSI_ITS ---
Subjective Subjective Date of Service: 05/05/25 Reason For Visit: recurrent major depression, alcohol use disorder Subjective Notes: Conditional Voluntary Healthcare Proxy: No Guardianship: No Medical Problems Affecting Mental Status: No Interim History: ECT #7. Slept eight hours Denies SI,HI,AH,VH Cymbalta dosing changed to HS looking at a program who has interest in pt in [place] Medication Compliance: Yes Side effects from medications: No Attending Groups: No Review of Systems post ECT confusion Medical Review of Systems: unchanged Review of Systems Review of Systems post ECT confusion Mental Status Exam Mental Status Exam Patient Appearance: Fatigued Patient Orientation: Person, Place, Time and Situation Level of Consciousness: Alert Patient Behavior: Talkative and Confused (mild) Mood Description: Flat Affect Description: Flat Patient Cognition Impaired: No Ability to Follow Directions: Good Speech Pattern: Spontaneous Speech Memory Description: Episodic Impaired Hallucinations: None Delusions: Not Present Thought Process: Confusion (mild) Thought Content: positive for [place], positive for Circumstantial and positive for Suicidal Ideation (denies) Depressive Symptoms: Thoughts of /Suicide (denies) Judgement: Fair Diagnostics Vital Signs (24Hr): Vital Signs - 24 hr 05/04/25 20:00 05/05/25 08:00 Temperature 98.5 F 98.2 F Pulse Rate 91 80 Respiratory Rate 18 18 Blood Pressure 110/62 132/77 Pulse Oximetry 97 94 Oxygen Delivery Method Room Air Room Air BMI result Body Mass Index 36.3 Imaging Radiology Impressions: ITS Impressions Ankle X-Ray 04/11/25 13:50 IMPRESSION: Status post tibiotalar arthroplasty. Degenerative changes as described. Electronically signed by: Jony Olivas MD 04/11/2025 01:59 PM EST RP Foot X-Ray 04/11/25 13:51 IMPRESSION: Status post tibiotalar arthroplasty. Degenerative changes as described. Electronically signed by: Jony Olivas MD 04/11/2025 01:59 PM EST RP Medications Medications Current Medications Acetaminophen (Acetaminophen 325 Mg Tablet) 650 mg PO Q6H PRN PRN Reason: Headache/Pain, Scale 1-10 Last Admin: 04/26/25 11:20 Dose: 650 mg Al Hydroxide/Mg Hydroxide (Magnesium Hydrox/Alum Hydrox 30 Ml Oral.Susp) 30 ml PO Q6H PRN PRN Reason: Heartburn/Nausea Amlodipine Besylate (Amlodipine Besylate 10 Mg Tablet) 10 mg PO DAILY [facility]; Protocol Last Admin: 05/05/25 07:56 Dose: Not Given Atorvastatin Calcium (Atorvastatin Calcium 80 Mg Tablet) 80 mg PO BEDTIME [facility] Last Admin: 05/04/25 21:39 Dose: 80 mg Clonidine HCl (Clonidine Hcl 0.1 Mg Tablet) 0.1 mg PO Q4H PRN; Protocol PRN Reason: severe anxiety Last Admin: 04/25/25 21:04 Dose: 0.1 mg Duloxetine HCl (Duloxetine Hcl 60 Mg Capsule.Dr) 60 mg PO DAILY [facility] Last Admin: 05/05/25 07:57 Dose: Not Given Ezetimibe (Ezetimibe 10 Mg Tablet) 10 mg PO DAILY [facility] Last Admin: 05/05/25 07:57 Dose: Not Given Fenofibrate (Fenofibrate 160 Mg Tablet) 160 mg PO DAILY [facility] Last Admin: 05/05/25 07:57 Dose: Not Given Folic Acid (Folic Acid 1 Mg Tablet) 1 mg PO DAILY [facility] Last Admin: 05/05/25 07:57 Dose: Not Given Hydroxyzine HCl (Hydroxyzine Hcl 50 Mg Tablet) 50 mg PO Q6H PRN PRN Reason: mild anxiety Last Admin: 04/28/25 22:32 Dose: 50 mg Ibuprofen (Ibuprofen 800 Mg Tablet) 800 mg PO Q8H PRN PRN Reason: Headache/Pain, Scale 1-10 Lidocaine (Lidocaine 4 % Patch Adh..Patch) 0.5 patch TRANSDERMA DAILY PRN; Protocol PRN Reason: back pain Lurasidone HCl (Lurasidone Hcl 80 Mg Tablet) 80 mg PO 1700 [facility] Last Admin: 05/04/25 16:58 Dose: 80 mg Magnesium Hydroxide (Milk Of Magnesia 30 Ml Oral.Susp) 30 ml PO DAILY PRN PRN Reason: Constipation Methocarbamol (Methocarbamol 500 Mg Tablet) 500 mg PO TID [facility] Last Admin: 05/05/25 07:57 Dose: Not Given Modafinil (Modafinil 100 Mg Tablet) 100 mg PO DAILY [facility] Last Admin: 05/05/25 07:57 Dose: Not Given Multivitamins/Vitamin C (Multivitamin Tablet) 1 tab PO DAILY [facility] Last Admin: 05/05/25 07:57 Dose: Not Given Naloxone HCl (Naloxone Hcl 0.4 Mg/Ml Vial) 0.04 mg IVPUSH Q5M PRN PRN Reason: Excessive sedation or RR < 8 Naltrexone HCl (Naltrexone Hcl 50 Mg Tablet) 50 mg PO DAILY [facility] Last Admin: 05/05/25 07:57 Dose: Not Given Omeprazole (Omeprazole 20 Mg Capsule.Dr) 20 mg PO BEDTIME [facility] Last Admin: 05/04/25 21:39 Dose: 20 mg Quetiapine Fumarate (Quetiapine Fumarate 25 Mg Tablet) 25 mg PO TID PRN PRN Reason: breakthrough anxiety Last Admin: 04/28/25 22:32 Dose: 25 mg Thiamine HCl (Thiamine Hcl 100 Mg Tablet) 100 mg PO DAILY [facility] Last Admin: 05/05/25 07:57 Dose: Not Given Topiramate (Topiramate 25 Mg Tablet) 50 mg PO BEDTIME [facility] Last Admin: 05/04/25 22:38 Dose: Not Given Trazodone HCl (Trazodone Hcl 100 Mg Tablet) 100 mg PO BEDTIME [facility] Last Admin: 05/04/25 21:39 Dose: 100 mg Trazodone HCl (Trazodone Hcl 50 Mg Tablet) 50 mg PO BEDTIME PRN PRN Reason: Insomnia Last Admin: 04/21/25 21:48 Dose: 50 mg Allergies Allergies Allergy/AdvReac Type Severity Reaction Status Date / Time No Known Allergies Allergy Verified 04/01/25 12:28 Assessment & Plan Assessment & Plan (1) Major depressive disorder, recurrent severe without psychotic features: Status: Acute Code(s): F33.2 - Major depressive disorder, recurrent severe without psychotic features (2) Hypertriglyceridemia: Status: Acute Code(s): E78.1 - Pure hyperglyceridemia Plan PLAN: 64-year-old male with medical history of hypertension, type 2 diabetes, hyperlipidemia, compression fracture of L1, and psychiatric history of major depressive disorder, anxiety, and suicidal ideation, presented to [facility] [place] 04[place]/[place] for worsening depression, SI, and a fall. Imaging were unrevealing. He was transferred to the ICU for treatment of metabolic syndrome. He endorsed SI before his discharge from the medical unit and therefore was transferred to yesterday. On interview with this provider, patient states that the reason for his psychiatric admission is suicide ideation and severe depression. He reports severe depression on/off, mostly on for the past several years. He feels hopeless, helpless, and worthless. He lacks interest to do things and has low energy. His symptoms are usually well controlled while on medication. However, he relapsed on drinking alcohol 3 weeks ago and stopped taking his psychotropic medications. He was drinking 5 or more nips daily. Prior to his recent relapse, he was sober for 2 years. He admits that his drinking may have worsened his depressive symptoms. He states that he stopped taking his medications because I didn't care anymore. He currently experiencing severe anxiety and depression. Regarding question about suicide ideation, he states that he does not have a plan, but if I went to sleep, I don't care if don't wake up. He denies hypomania or kaveh episodes. He denies HI/AVH. He reports severe left-sided low back pain which started after he fell the day before he presented to [facility] abdomen/pelvis revealed acute to subacute superior endplate compression fracture at L1. His goal for this hospitalization is that I want to feel better about myself, and to get back on his medications. Formulation/Clinical reasoning: Patient has chronic anxiety and depression symptoms which worsened in the past 3 weeks when he stopped taking his psychotropic medications and relapsed on alcohol. His symptoms are well controlled on medications. Will continue current treatment regimen and make adjustment as needed. If he fails to respond to treatment, ECT may be ideal since it was effective in the past. Referred to addiction medicine. Lidocaine patch ordered and PT referral made for back pain. 04/10: Patient continues to be severely anxious and depressed. He also continues to experience intermittent left-sided low back pain. No SI/HI/AVH. Continue current treatment regimen. Encourage groups and to engage in physical therapy. Patient may receive inpatient ECT if he does not improve. Verbalized understanding and agreed with the plan. 04/11: Continue tx ECT consult Encourage milieu Right foot/ankle xrays 04/12 Patient says that his mood is better but he remains very anxious. Discussed options and patient agrees to trying Seroquel p.r.n. after reviewing risks/side effects of antipsychotics. 04/14: The depression is somewhat less. Anxiety is high Reports anergy as well I will do what I need to to feel better. Reviewed in team with Dr. May and Dr. Jacob. Dr. May met with pt and ECT will begin on 04/21. Denies SI,HI,AH,VH, SIBS Reports an increase of sleep and intact appetite. Pt asks to return to a regular diet as he reports poor choices on diabetic regime. Also asks that he not receive a safety tray. Intermittent group attendance Over the weekend Clonidine ordered prn along with Seroquel prn and Lidocaine Patch for pain. No new medical/diagnostic results. Plan: Provigil trial. 04/15: Pt reports Provigil has helped this a.m. Pt agrees to ECT trial and will attend milieu groups and will agree to CSS post discharge when ECT is completed. Today, discussed antidepressant trials. Identifies Venlafaxine as most helpful by history. Discussed this, along with Cymbalta with some benefits for pain mgt. Pt would like to trial Cymbalta. Attending groups this afternoon. Plan: Cymbalta 20 mg daily 04/16: Team reports pt slept last evening. He received medical clearance for ECT today Tolerating Cymbalta, Provigil. Will begin Lexapro tapering to 15 mg this evening Not attending groups Rates anxiety/depressive sx 8 today. 04/17/25: Meet with patient in assigned room, report no issues with appetite or sleep. Report anxiety an 8/10 and depression a 7/10. He eats breakfast in room. Denies alcohol craving. Report he went to a group yesterday. Denies SI/SIB/HI/AVH Per nursing, meds compliant, slept for 7 hours, compliant with meds, no side effect. mostly isolated to self in room. Constricted affect.Continue to encourage group participation. 04/18/25: Pt denies SI,HI,AH,VH He is attending some groups He is visable today in the milieu. He has informed his he as a fracture in his back and is unsure of tx plan. called pt's geriatric social worker to clarify. This was diagnosed when pt was on medicine, having a abdominal diagnostic. On 04/01 abdominal films for pancreatitis were completed. Compression Fx found on L1. STR was suggested by PT when discharged with no further recs when transferred to . Nehemias Fuller of PT has been following pt on M5 with exercises, stretching and observation with ambulation. He will need OP PT upon DC. Pt is anxious, apprehensive regarding ECT, however believes this is the appropr iate thing to do. Discussed Cymbalta titration to 30 mg and decrease of Escitalopram to 10 mg which he agrees with. 04/19/25: Met with patient in group room A where patient spent time after breakfast watching TV. Reports anxiety 7, and depression is 6/10. Reported that he went to 1 group yesterday. Per nursing, patient slept for 7 hours, compliant with medications. Denies side effects but reports some hand tremors which be from medication or from chronic alcohol abuse. We will continue to monitor. No SI/SIB/HI/AVH. Per ECT consult provider note: Patient has not had ongoing stability from depression for an extended period of time. 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 He did respond to a course of ECT in December and did speak with the patient at the only way that I would recommend another course of ECT at this time would be if the patient will willing to do aggressive treatment including possibility if residential sober home and show a commitment to sobriety otherwise his default appears to be to going back to drinking which also has involved not taking responsibility lack of honesty at times in what he is doing in unless he could commit to this that it would be very hard to achieve any stability. Patient appeared to understand this and patient wish strongly to go forward with ECT as he felt it had been quite helpful and agreed with the above provisions also discussed with the patient the ongoing in potentially severe medical consequences of his chronic alcohol use 04/20/25: Meet with patient in room where he is eating lunch. Report that he does not want to eat and be around with people. Denies sleeping or eating appetite uses. Continue report moderate to severe anxiety of a 7/10 and depression a 6/10. Denies SI/SIB/HI/AVH. Does not have alcohol craving at this moment. Flat/constricted affect. He is looking forward to having ECT tomorrow which he was told by his primary attending. Can observed him sometimes in dinning area but keep to self, not talk to anyone unless approach. Able to make needs known. Per nursing, patient slept for 8 hours, denies side effects from medications. Report to nursing staff with same anixety and depression level. Consistent with report. Continue with current plan. Nursing staff to prapare patient for ECT per protocol. 04/21/25: First ECT treatment today which was delayed until this afternoon. Got back from procedure, denies side effects. Denies [place] but feel a little bit tired. Report anxiety and depression as moderate. No behavior issues. Resting in bed after ECT. Encourage groups when able to/ tolerated. Denies SI/SIB/HI/AVH. Flat affect. Continue with current plan. Lipid profile: elevated. 04/22/25:Trever reports his first ECT went well and he is looking forward to continuing the series. No adverse effects reported from cross taper from Escitalopram to Duloxetine, will continue that this evening. Pt reports he is attending some groups, today, however, he is resting in bed (no groups currently occurring, however he does have a list on his bedside table). Denies SI, HI,AH, VH. Plan: Continue tx 04/23/25: ECT Treatment #2. Attending groups, Resting this afternoon, tired after the treatment. Denies SI,HI,AH,VH. I am trying . Team attempting to assist pt to be more engaged and active when in group. Continue tx. 04/24/25: Continue tx. 04/25/25: Continue tx. 04/26/25:Reviewed with team and reviewed plan of care. Team reports minimal improvement with ECT #3 Met with pt who appears brighter and who is up and about the unit this a.m. This afternoon, pt is in bed, reporting post ECT headache has not really resolved from 04/25, however, he feels the depression is decreasing. Ibuprofen ordered prn for headache. 04/28: Continue tx 05/02/25: ECT #6. Pt will continue treatments next week. is very upset-today has been caustic with team, with Matilde per their report. Call to who does not want pt to go to [facility] as she reports what she has read has not been appropriate reviews and she worries he will do poorly there and relapse. She reports she was told that drugs are sold at [facility]. We discussed that patients with both alcohol and substance addiction are treated there. Reviewed with the extensive efforts pt's geriatric social worker, Thu has put into his treatment, bed searches and exploration of options for ongoing care. agrees that Thu has gone above and beyond, however, she continues to disagree with [facility]. She describes what has been read as frightening . Discussed parameters of pts current insurance and limited number of options. Encouraged her to contact [facility] to discuss options as pt will be making changes soon. Pt, post ECT denies ELIANE,IRENE,AH,VH. He was informed he will not be going to [facility] and will have ECT on 05/05/25. 05/03Patient reports that he is good and looking forward to discharge; discussed how he is working with social work regarding a specific program. Says he plans to get ECT on Friday 05/04 remains doing well; ECT tomorrow 05/05 ECT #7. Slept eight hours Denies [place],AH,VH Cymbalta dosing changed to HS looking at a program who has interest in pt in [place] Patient is stable on current medications; he is in good behavioral and impulse control and appropriate with peers and staff Plan CV Q15min ECT #1: 04/21/25. ECT #4 04/29/25 ECT #5 04/30 ECT #6 05/02 ECT #5 [id number] -Add Seroquel 25 mg p.r.n. for anxiety Diagnostics as needed. Collateral contact. Continue remainder of regime. Encouraged full milieu. Discharge planning. Reason for continued inpatient stay Substantial Risk for: rapid decompensation Time Spent With Patient Time: Total time managing care of this patient today ____ minutes.
--- NOTE | 2025-05-05 12:04 | HO.ECTPROC ---
ECT Procedure Note Diagnosis/Treatment Date of Service: 05/05/25 Diagnosis: Major Depressive Disorder Previous ECT Date: 05/02/25 Current Treatment Number: 7 Treatment: Series Interval Clinical Notes: Pt reports that he's feeling 'good'. Denies any issues with last tx. Time: Total time managing care of this patient today ____ minutes. ECT Settings Device: [id number] DGx Electrode Placement: Right Unilateral Program/Pulse Width: 0.50 Energy Percent: 100 Medications Administration General Anesthetic: Etomidate (20 mg (2 mg added to 18 mg since pt didn't seem to be adequately sedated)) Muscle Relaxant: Succinylcholine (180 mg) Ancillary Medications Cardiovascular Medications: Glycopyrrolate (0.2 mg pre) Miscillaneous Medications: Propofol (30 mg post) Airway Management Airway Management: LMA Treatment Recommendations No Changes Recommended: No change Pt Tolerated Procedure w/o Issue: Yes
--- NOTE | 2025-05-05 12:05 | MHC.SHP ---
Pre-Procedural Eval Section A - 24 Hr Update-Section A only Date of Service: 05/05/25 The patient is an INPATIENT: Yes Changes since office visit: No Cold of Flu in the past 2 weeks, No New Medical Problems, No Changes in Medication and No Patient answered all questions The patient has been examined within 24 hours of the surgical procedure. The History & Physical has been completed within 30 days and I have reviewed it.: Yes Section B - Complete if H&P > 30 days Chief Complaint: recurrent major depression, alcohol use disorder Allergies: Allergies Allergy/AdvReac Type Severity Reaction Status Date / Time No Known Allergies Allergy Verified 04/01/25 12:28 Plan I have reviewed the history and physical and performed a pertinent physical examination on my patient. No changes have occurred unless specified. Time Spent With Patient Time: Total time managing care of this patient today ____ minutes.
--- NOTE | 2025-05-05 13:06 | P.CONAN_ITS ---
HPI - Anesthesia Eval Consult details Narrative: ect PMFSH Active Problems Active Problems: All Active Problems Alcoholic liver disease (Acute) Major depressive disorder, recurrent severe without psychotic features (Acute) Hypertriglyceridemia (Acute) Low back pain (Acute) Anxiety (Acute) Suicidal ideation (Acute) Fatigue (Acute) Past Medical History Medical History Alcoholic liver disease Major depressive disorder, recurrent severe without psychotic features Hypertriglyceridemia Fracture of nasal bone Alcohol use disorder Fatigue Family History Family history of problems with anesthesia: No Surgical History History of Problems with Anesthesia: No Social History Social History Household Members: Spouse Housing: House Do you presently have visiting nurse or other home services: No Alcohol intake: current Alcohol intake frequency: 3 or more drinks per day Alcohol type: hard liquor Comment: PT Consult ordered Patient Tobacco Use Status: Never used Tobacco Currently Displaying Signs/Symptoms of Drug Intoxication Withdrawal: No Have you been hit, kicked, punched, or otherwise hurt by someone within the past year? If so, by whom?: No Do you feel safe in your current relationship?: Yes Is there a partner from a previous relationship who is making you feel unsafe now?: No Are you made to feel afraid or neglected: No Spiritual Healthcare Practices: Rastafari Are you DNR?: No Advance Directives: Yes Advance Directives Information Provided: No Advance Directives on File: Yes Advance Directives Date on File: 04/02/25 Do you have thoughts of harming others: None Do you have a plan to hurt others: No Plan Recently lost weight without trying: No Eating poorly because of decreased appetite: No Nutrition Risks: No Nutritional Risk Poor oral hygiene: No service: No Sexual orientation: Straight/Heterosexual Meds Allergies Allergy/AdvReac Type Severity Reaction Status Date / Time No Known Allergies Allergy Verified 04/01/25 12:28 Active Medications: Current Medications Acetaminophen (Acetaminophen 325 Mg Tablet) 650 mg PO Q6H PRN PRN Reason: Headache/Pain, Scale 1-10 Last Admin: 04/26/25 11:20 Dose: 650 mg Al Hydroxide/Mg Hydroxide (Magnesium Hydrox/Alum Hydrox 30 Ml Oral.Susp) 30 ml PO Q6H PRN PRN Reason: Heartburn/Nausea Amlodipine Besylate (Amlodipine Besylate 10 Mg Tablet) 10 mg PO DAILY [facility]; Protocol Last Admin: 05/05/25 07:56 Dose: Not Given Atorvastatin Calcium (Atorvastatin Calcium 80 Mg Tablet) 80 mg PO BEDTIME [facility] Last Admin: 05/04/25 21:39 Dose: 80 mg Clonidine HCl (Clonidine Hcl 0.1 Mg Tablet) 0.1 mg PO Q4H PRN; Protocol PRN Reason: severe anxiety Last Admin: 04/25/25 21:04 Dose: 0.1 mg Duloxetine HCl (Duloxetine Hcl 60 Mg Capsule.Dr) 60 mg PO DAILY [facility] Last Admin: 05/05/25 07:57 Dose: Not Given Ezetimibe (Ezetimibe 10 Mg Tablet) 10 mg PO DAILY [facility] Last Admin: 05/05/25 07:57 Dose: Not Given Fenofibrate (Fenofibrate 160 Mg Tablet) 160 mg PO DAILY [facility] Last Admin: 05/05/25 07:57 Dose: Not Given Folic Acid (Folic Acid 1 Mg Tablet) 1 mg PO DAILY [facility] Last Admin: 05/05/25 07:57 Dose: Not Given Hydroxyzine HCl (Hydroxyzine Hcl 50 Mg Tablet) 50 mg PO Q6H PRN PRN Reason: mild anxiety Last Admin: 04/28/25 22:32 Dose: 50 mg Ibuprofen (Ibuprofen 800 Mg Tablet) 800 mg PO Q8H PRN PRN Reason: Headache/Pain, Scale 1-10 Lidocaine (Lidocaine 4 % Patch Adh..Patch) 0.5 patch TRANSDERMA DAILY PRN; Protocol PRN Reason: back pain Lurasidone HCl (Lurasidone Hcl 80 Mg Tablet) 80 mg PO 1700 [facility] Last Admin: 05/04/25 16:58 Dose: 80 mg Magnesium Hydroxide (Milk Of Magnesia 30 Ml Oral.Susp) 30 ml PO DAILY PRN PRN Reason: Constipation Methocarbamol (Methocarbamol 500 Mg Tablet) 500 mg PO TID [facility] Last Admin: 05/05/25 07:57 Dose: Not Given Modafinil (Modafinil 100 Mg Tablet) 100 mg PO DAILY [facility] Last Admin: 05/05/25 07:57 Dose: Not Given Multivitamins/Vitamin C (Multivitamin Tablet) 1 tab PO DAILY [facility] Last Admin: 05/05/25 07:57 Dose: Not Given Naloxone HCl (Naloxone Hcl 0.4 Mg/Ml Vial) 0.04 mg IVPUSH Q5M PRN PRN Reason: Excessive sedation or RR < 8 Naltrexone HCl (Naltrexone Hcl 50 Mg Tablet) 50 mg PO DAILY [facility] Last Admin: 05/05/25 07:57 Dose: Not Given Omeprazole (Omeprazole 20 Mg Capsule.Dr) 20 mg PO BEDTIME [facility] Last Admin: 05/04/25 21:39 Dose: 20 mg Quetiapine Fumarate (Quetiapine Fumarate 25 Mg Tablet) 25 mg PO TID PRN PRN Reason: breakthrough anxiety Last Admin: 04/28/25 22:32 Dose: 25 mg Thiamine HCl (Thiamine Hcl 100 Mg Tablet) 100 mg PO DAILY [facility] Last Admin: 05/05/25 07:57 Dose: Not Given Topiramate (Topiramate 25 Mg Tablet) 50 mg PO BEDTIME [facility] Last Admin: 05/04/25 22:38 Dose: Not Given Trazodone HCl (Trazodone Hcl 100 Mg Tablet) 100 mg PO BEDTIME [facility] Last Admin: 05/04/25 21:39 Dose: 100 mg Trazodone HCl (Trazodone Hcl 50 Mg Tablet) 50 mg PO BEDTIME PRN PRN Reason: Insomnia Last Admin: 04/21/25 21:48 Dose: 50 mg Home Medications ?Medication ?Instructions ?Recorded ?Confirmed ?Last Taken ?Type ezetimibe 10 mg tablet (Zetia) 10 mg PO DAILY 12/19/24 04/08/25 03/23/25 History omega-3 acid ethyl esters 1 gram 2 cap PO BID 12/19/24 04/08/25 03/23/25 History capsule rosuvastatin 20 mg tablet 20 mg PO DAILY 12/19/2403/2203/23/25 History amlodipine 10 mg tablet 10 mg PO DAILY 01/31/2503/2203/23/25 History fenofibrate 160 mg tablet 160 mg PO DAILY 01/31/2503/23/25 History [id number] 300 mcg-K 60 1 tab PO DAILY 01/31/25 04/08/25 03/23/25 History mcg-lycop 600 mcg-lutein 300 mcg tablet (Centrum Silver Men) topiramate 50 mg tablet 50 mg PO BEDTIME 01/31/2503/23/25 History trazodone 100 mg tablet 100 mg PO BEDTIME insomnia 1 06/02/24 04/08/25 03/23/25 History Exam Height,Weight and Vital Signs: Height 5 ft 9 in Weight 111.6 kg Last Vital Signs Temp 97.2 F 05/05/25 12:42 Pulse 84 05/05/25 12:42 Resp 18 05/05/25 12:42 BP 138/105 H 05/05/25 12:42 Pulse Ox 96 05/05/25 12:42 O2 Del Method Room Air 05/05/25 12:42 O2 Flow Rate 3 05/02/25 08:10 Pertinent Lab Results Pertinent Lab Results: Laboratory Tests 04/10/25 04/21/25 07:56 09:08 Estimat Average Glucose 111 Hemoglobin A1c % 5.5 Magnesium 1.7 Total Bilirubin 0.5 Direct Bilirubin 0.2 AST 34 ALT 31 Alkaline Phosphatase 77 Ammonia 20 Total Protein 6.7 Albumin 4.1 Triglycerides 1009 H 380 H Cholesterol 253 H 158 LDL Cholesterol, Calc TNP 54 HDL Cholesterol 27 L 28 L Vitamin B12 504 Folate 14.7 TSH 4.62 H Free T4 0.83 Airway Mallampati Class: III TM Dist: <=3cm Neck ROM: Limited Heart: rrr Lungs: cta Assessment and Plan Assessment Anesthesia Assessment: Anesthesia Plan Discussed and Chart Reviewed Final Anesthetic Review Family History of Problems with Anesthesia: No History of Problems with Anesthesia: No NPO: Yes ASA Class: III Final Preanesthetic Review: No Changes in Pt Med Stat, Meds/Allgs Chart Reviewed, Consent Obtained/Reviewed and Anes Risks/Benef Reviewed Patient Risk: Intermediate Procedure Risk: Low Anesthetic Plan Anesthetic Plan: GA and Agree w/ Assess. and Plan Disposition: Standard PACU
[2025-05-06 08:00] VITALS: BP 125/65; PULSE 82; RESP 18; TEMP 38.3; O2SAT 97
--- NOTE | 2025-05-06 10:21 | P.PNPSI_ITS ---
Subjective Subjective Date of Service: 05/06/25 Reason For Visit: recurrent major depression, alcohol use disorder Subjective Notes: Conditional Voluntary Healthcare Proxy: No Guardianship: No Medical Problems Affecting Mental Status: No Interim History: Flu sx present with fever. Slept 8 hours Denies SI,HI,AH,VH +Depressive sx, +anergy, +fatigue, mild confusion. ECT will cancel for 05/07 due to flu/fever Medication Compliance: Yes Side effects from medications: No Attending Groups: No Review of Systems flu ?post ECT confusion Review of Systems Review of Systems flu sx Mental Status Exam Mental Status Exam Patient Appearance: Fatigued Patient Orientation: Person, Place, Time and Situation Level of Consciousness: Alert Patient Behavior: Talkative and Confused (mild) Mood Description: Flat Affect Description: Flat Patient Cognition Impaired: No Ability to Follow Directions: Good Speech Pattern: Spontaneous Speech Memory Description: Episodic Impaired Hallucinations: None Delusions: Not Present Thought Process: Confusion (mild) Thought Content: positive for [place], positive for Circumstantial and positive for Suicidal Ideation (denies) Depressive Symptoms: Thoughts of /Suicide (denies) Judgement: Fair Diagnostics Vital Signs (24Hr): Vital Signs - 24 hr 05/05/25 12:42 05/05/25 13:37 05/05/25 13:42 Temperature 97.2 F 97.9 F Pulse Rate 84 80 81 Respiratory Rate 18 16 16 Blood Pressure 138/105 H 104/70 122/80 Pulse Oximetry 96 98 97 Oxygen Delivery Method Room Air Simple Mask Simple Mask Oxygen Flow Rate 6 6 05/05/25 13:47 05/05/25 13:52 05/05/25 14:07 Temperature 98.3 F Pulse Rate 81 85 85 Respiratory Rate 16 16 18 Blood Pressure 119/84 122/96 H 119/98 H Pulse Oximetry 99 99 94 Oxygen Delivery Method Simple Mask Room Air Room Air Oxygen Flow Rate 6 05/05/25 14:31 05/05/25 18:49 05/05/25 20:00 Temperature 97.3 F 98.4 F Pulse Rate 82 91 Respiratory Rate 18 18 Blood Pressure 138/78 130/72 130/72 Pulse Oximetry 96 95 Oxygen Delivery Method Room Air Oxygen Flow Rate 05/06/25 08:00 Temperature 101.0 F H Pulse Rate 82 Respiratory Rate 18 Blood Pressure 125/65 Pulse Oximetry 97 Oxygen Delivery Method Room Air Oxygen Flow Rate BMI result Body Mass Index 36.3 Imaging Radiology Impressions: ITS Impressions Ankle X-Ray 04/11/25 13:50 IMPRESSION: Status post tibiotalar arthroplasty. Degenerative changes as described. Electronically signed by: Jony Olivas MD 04/11/2025 01:59 PM EST RP Foot X-Ray 04/11/25 13:51 IMPRESSION: Status post tibiotalar arthroplasty. Degenerative changes as described. Electronically signed by: Jony Olivas MD 04/11/2025 01:59 PM EST RP Medications Medications Current Medications Acetaminophen (Acetaminophen 325 Mg Tablet) 650 mg PO Q6H PRN PRN Reason: Headache/Pain, Scale 1-10 Last Admin: 04/26/25 11:20 Dose: 650 mg Al Hydroxide/Mg Hydroxide (Magnesium Hydrox/Alum Hydrox 30 Ml Oral.Susp) 30 ml PO Q6H PRN PRN Reason: Heartburn/Nausea Amlodipine Besylate (Amlodipine Besylate 10 Mg Tablet) 10 mg PO DAILY [facility]; Protocol Last Admin: 05/06/25 08:21 Dose: 10 mg Atorvastatin Calcium (Atorvastatin Calcium 80 Mg Tablet) 80 mg PO BEDTIME PAYAM Last Admin: 05/05/25 20:15 Dose: 80 mg Clonidine HCl (Clonidine Hcl 0.1 Mg Tablet) 0.1 mg PO Q4H PRN; Protocol PRN Reason: severe anxiety Last Admin: 05/05/25 18:49 Dose: 0.1 mg Duloxetine HCl (Duloxetine Hcl 60 Mg Capsule.Dr) 60 mg PO BEDTIME PAYAM Last Admin: 05/05/25 20:15 Dose: 60 mg Ezetimibe (Ezetimibe 10 Mg Tablet) 10 mg PO DAILY PAYAM Last Admin: 05/06/25 08:21 Dose: 10 mg Fenofibrate (Fenofibrate 160 Mg Tablet) 160 mg PO DAILY PAYAM Last Admin: 05/06/25 08:20 Dose: 160 mg Folic Acid (Folic Acid 1 Mg Tablet) 1 mg PO DAILY PAYAM Last Admin: 05/06/25 08:21 Dose: 1 mg Hydroxyzine HCl (Hydroxyzine Hcl 50 Mg Tablet) 50 mg PO Q6H PRN PRN Reason: mild anxiety Last Admin: 04/28/25 22:32 Dose: 50 mg Ibuprofen (Ibuprofen 800 Mg Tablet) 800 mg PO Q8H PRN PRN Reason: Headache/Pain, Scale 1-10 Lidocaine (Lidocaine 4 % Patch Adh..Patch) 0.5 patch TRANSDERMA DAILY PRN; Protocol PRN Reason: back pain Lurasidone HCl (Lurasidone Hcl 80 Mg Tablet) 80 mg PO 1700 [facility] Last Admin: 05/05/25 16:28 Dose: 80 mg Magnesium Hydroxide (Milk Of Magnesia 30 Ml Oral.Susp) 30 ml PO DAILY PRN PRN Reason: Constipation Methocarbamol (Methocarbamol 500 Mg Tablet) 500 mg PO TID [facility] Last Admin: 05/06/25 08:21 Dose: 500 mg Modafinil (Modafinil 100 Mg Tablet) 100 mg PO DAILY [facility] Last Admin: 05/06/25 08:21 Dose: 100 mg Multivitamins/Vitamin C (Multivitamin Tablet) 1 tab PO DAILY [facility] Last Admin: 05/06/25 08:21 Dose: 1 tab Naloxone HCl (Naloxone Hcl 0.4 Mg/Ml Vial) 0.04 mg IVPUSH Q5M PRN PRN Reason: Excessive sedation or RR < 8 Naloxone HCl (Naloxone Hcl 0.4 Mg/Ml Vial) 0.04 mg IVPUSH Q5M PRN PRN Reason: Excessive sedation or RR < 8 Naltrexone HCl (Naltrexone Hcl 50 Mg Tablet) 50 mg PO DAILY [facility] Last Admin: 05/06/25 08:20 Dose: 50 mg Omeprazole (Omeprazole 20 Mg Capsule.Dr) 20 mg PO BEDTIME [facility] Last Admin: 05/05/25 20:14 Dose: 20 mg Quetiapine Fumarate (Quetiapine Fumarate 25 Mg Tablet) 25 mg PO TID PRN PRN Reason: breakthrough anxiety Last Admin: 05/05/25 20:28 Dose: 25 mg Thiamine HCl (Thiamine Hcl 100 Mg Tablet) 100 mg PO DAILY [facility] Last Admin: 05/06/25 08:21 Dose: 100 mg Topiramate (Topiramate 25 Mg Tablet) 50 mg PO BEDTIME [facility] Last Admin: 05/05/25 20:15 Dose: 50 mg Trazodone HCl (Trazodone Hcl 100 Mg Tablet) 100 mg PO BEDTIME [facility] Last Admin: 05/05/25 20:15 Dose: 100 mg Trazodone HCl (Trazodone Hcl 50 Mg Tablet) 50 mg PO BEDTIME PRN PRN Reason: Insomnia Last Admin: 04/21/25 21:48 Dose: 50 mg Allergies Allergies Allergy/AdvReac Type Severity Reaction Status Date / Time No Known Allergies Allergy Verified 04/01/25 12:28 Assessment & Plan Assessment & Plan (1) Major depressive disorder, recurrent severe without psychotic features: Status: Acute Code(s): F33.2 - Major depressive disorder, recurrent severe without psychotic features (2) Hypertriglyceridemia: Status: Acute Code(s): E78.1 - Pure hyperglyceridemia Plan PLAN: 64-year-old male with medical history of hypertension, type 2 diabetes, hyperlipidemia, compression fracture of L1, and psychiatric history of major depressive disorder, anxiety, and suicidal ideation, [place] [facility] [place] for worsening depression, SI, and a fall. Imaging were unrevealing. He was transferred to the ICU for treatment of metabolic syndrome. He endorsed SI before his discharge from the medical unit and therefore was transferred to yesterday. On interview with this provider, patient states that the reason for his psychiatric admission is suicide ideation and severe depression. He reports severe depression on/off, mostly on for the past several years. He feels hopeless, helpless, and worthless. He lacks interest to do things and has low energy. His symptoms are usually well controlled while on medication. However, he relapsed on drinking alcohol 3 weeks ago and stopped taking his psychotropic medications. He was drinking 5 or more nips daily. Prior to his recent relapse, he was sober for 2 years. He admits that his drinking may have wors ened his depressive symptoms. He states that he stopped taking his medications because I didn't care anymore. He currently experiencing severe anxiety and depression. Regarding question about suicide ideation, he states that he does not have a plan, but if I went to sleep, I don't care if don't wake up. He denies hypomania or kaveh episodes. He denies HI/AVH. He reports severe left-sided low back pain which started after he fell the day before he presented [place] [facility] abdomen/pelvis revealed acute to subacute superior endplate compression fracture at L1. His goal for this hospitalization is that I want to feel better about myself, and to get back on his medications. Formulation/Clinical reasoning: Patient has chronic anxiety and depression symptoms which worsened in the past 3 weeks when he stopped taking his psychotropic medications and relapsed on alcohol. His symptoms are well controlled on medications. Will continue current treatment regimen and make adjustment as needed. If he fails to respond to treatment, ECT may be ideal since it was effective in the past. Referred to addiction medicine. Lidocaine patch ordered and PT referral made for back pain. 04/10: Patient continues to be severely anxious and depressed. He also continues to experience intermittent left-sided low back pain. No SI/HI/AVH. Continue current treatment regimen. Encourage groups and to engage in physical therapy. Patient may receive inpatient ECT if he does not improve. Verbalized understanding and agreed with the plan. 04/11: Continue tx ECT consult Encourage milieu Right foot/ankle xrays 04/12 Patient says that his mood is better but he remains very anxious. Discussed options and patient agrees to trying Seroquel p.r.n. after reviewing risks/side effects of antipsychotics. 04/14: The depression is somewhat less. Anxiety is high Reports anergy as well I will do what I need to to feel better. Reviewed in team with Dr. May and Dr. Jacob. Dr. May met with pt and ECT will begin on 04/21. Denies SI,HI,AH,VH, SIBS Reports an increase of sleep and intact appetite. Pt asks to return to a regular diet as he reports poor choices on diabetic regime. Also asks that he not receive a safety tray. Intermittent group attendance Over the weekend Clonidine ordered prn along with Seroquel prn and Lidocaine Patch for pain. No new medical/diagnostic results. Plan: Provigil trial. 04/15: Pt reports Provigil has helped this a.m. Pt agrees to ECT trial and will attend milieu groups and will agree to CSS post discharge when ECT is completed. Today, discussed antidepressant trials. Identifies Venlafaxine as most helpful by history. Discussed this, along with Cymbalta with some benefits for pain mgt. Pt would like to trial Cymbalta. Attending groups this afternoon. Plan: Cymbalta 20 mg daily 04/16: Team reports pt slept last evening. He received medical clearance for ECT today Tolerating Cymbalta, Provigil. Will begin Lexapro tapering to 15 mg this evening Not attending groups Rates anxiety/depressive sx 8 today. 04/17/25: Meet with patient in assigned room, report no issues with appetite or sleep. Report anxiety an 8/10 and depression a 7/10. He eats breakfast in room. Denies alcohol craving. Report he went to a group yesterday. Denies SI/SIB/HI/AVH Per nursing, meds compliant, slept for 7 hours, compliant with meds, no side effect. mostly isolated to self in room. Constricted affect.Continue to encourage group participation. 04/18/25: Pt denies SI,HI,AH,VH He is attending some groups He is visable today in the milieu. He has informed his he as a fracture in his back and is unsure of tx plan. called pt's healthcare social worker to clarify. This was diagnosed when pt was on medicine, having a abdominal diagnostic. On 04/01 abdominal films for pancreatitis were completed. Compression Fx found on L1. STR was suggested by PT when discharged with no further recs when transferred to M5. Nehemias Fuller of PT has been following pt on M5 with exercises, stretching and observation with ambulation. He will need OP PT upon DC. Pt is anxious, apprehensive regarding ECT, however believes this is the appropriate thing to do. Discussed Cymbalta titration to 30 mg and decrease of Escitalopram to 10 mg which he agrees with. 04/19/25: Met with patient in group room A where patient spent time after breakfast watching TV. Reports anxiety 7, and depression is 6/10. Reported that he went to 1 group yesterday. Per nursing, patient slept for 7 hours, compliant with medications. Denies side effects but reports some hand tremors which be from medication or from chronic alcohol abuse. We will continue to monitor. No SI/SIB/HI/AVH. Per ECT consult provider note: Patient has not had ongoing stability from depression for an extended period of time. 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 He did respond to a course of ECT in December and did speak with the patient at the only way that I would recommend another course of ECT at this time would be if the patient will willing to do aggressive treatment including possibility if residential sober home and show a commitment to sobriety otherwise his default appears to be to going back to drinking which also has involved not taking responsibility lack of honesty at times in what he is doing in unless he could commit to this that it would be very hard to achieve any stability. Patient appeared to understand this and patient wish strongly to go forward with ECT as he felt it had been quite helpful and agreed with the above provisions also discussed with the patient the ongoing in potentially severe medical consequences of his chronic alcohol use 04/20/25: Meet with patient in room where he is eating lunch. Report that he does not want to eat and be around with people. Denies sleeping or eating appet ite uses. Continue report moderate to severe anxiety of a 710 and depression a 610. Denies SI/SIB/HI/AVH. Does not have alcohol craving at this moment. Flat/constricted affect. He is looking forward to having ECT tomorrow which he was told by his primary attending. Can observed him sometimes in dinning area but keep to self, not talk to anyone unless approach. Able to make needs known. Per nursing, patient slept for 8 hours, denies side effects from medications. Report to nursing staff with same anixety and depression level. Consistent with report. Continue with current plan. Nursing staff to prapare patient for ECT per protocol. 04/21/25: First ECT treatment today which was delayed until this afternoon. Got back from procedure, denies side effects. Denies [place] but feel a little bit tired. Report anxiety and depression as moderate. No behavior issues. Resting in bed after ECT. Encourage groups when able to/ tolerated. Denies SI/SIB/HI/AVH. Flat affect. Continue with current plan. Lipid profile: elevated. 04/22/25:Trever reports his first ECT went well and he is looking forward to continuing the series. No adverse effects reported from cross taper from Escitalopram to Duloxetine, will continue that this evening. Pt reports he is attending some groups, today, however, he is resting in bed (no groups currently occurring, however he does have a list on his bedside table). Denies SI, HI,AH, VH. Plan: Continue tx 04/23/25: ECT Treatment #2. Attending groups, Resting this afternoon, tired after the treatment. Denies SI,HI,AH,VH. I am trying . Team attempting to assist pt to be more engaged and active when in group. Continue tx. 04/24/25: Continue tx. 04/25/25: Continue tx. 04/26/25:Reviewed with team and reviewed plan of care. Team reports minimal improvement with ECT #3 Met with pt who appears brighter and who is up and about the unit this a.m. This afternoon, pt is in bed, reporting post ECT headache has not really resolved from 04/25, however, he feels the depression is decreasing. Ibuprofen ordered prn for headache. 04/28: Continue tx 05/02/25: ECT #6. Pt will continue treatments next week. is very upset-today has been caustic with team, with Matilde per their report. Call to who does not want pt to go to [facility] as she reports what she has read has not been appropriate reviews and she worries he will do poorly there and relapse. She reports she was told that drugs are sold at [facility]. We discussed that patients with both alcohol and substance addiction are treated there. Reviewed with the extensive efforts pt's healthcare social worker, Thu has put into his treatment, bed searches and exploration of options for ongoing care. agrees that Thu has gone above and beyond, however, she continues to disagree with [facility]. She describes what has been read as frightening . Discussed parameters of pts current insurance and limited number of options. Encouraged her to contact [facility] to discuss options as pt will be making changes soon. Pt, post ECT denies SI,HI,AH,VH. He was informed he will not be going to [facility] and will have ECT on 05/05/25. 05/03Patient reports that he is good and looking forward to discharge; discussed how he is working with social work regarding a specific program. Says he plans to get ECT on Friday 05/04 remains doing well; ECT tomorrow 05/05 ECT #7. Slept eight hours Denies SI,HI,AH,VH Cymbalta dosing changed to HS looking at a program who has interest in pt in [place] 05/06/25:Flu sx present with fever. Slept 8 hours Denies SI,HI,AH,VH +Depressive sx, +anergy, +fatigue, mild confusion. ECT will cancel for 05/07 due to flu/fever Patient is stable on current medications; he is in good behavioral and impulse control and appropriate with peers and staff Plan CV Q15min ECT #1: 04/21/25. ECT #4 04/29/25 ECT #5 04/30 ECT #6 05/02 ECT #5 [id number] -Add Seroquel 25 mg p.r.n. for anxiety Diagnostics as needed. Collateral contact. Continue remainder of regime. Encouraged full milieu. Discharge planning. Reason for continued inpatient stay Substantial Risk for: rapid decompensation and med/psych decompensation Time Spent With Patient Time: Total time managing care of this patient today ____ minutes.
[2025-05-06 10:54] LABS: Resp Syncy Virus RNA Qual PCR NEGATIVE (Negative); SARS COV2 PCR INHOUSE NEGATIVE (Negative)
[2025-05-06 11:29] LABS: Chlamydia pneumoniae PCR Not Detected (Not Detect.); Coronavirus 229E PCR Not Detected (Not Detect.); Coronavirus HKU1 PCR Not Detected (Not Detect.); Coronavirus NL63 PCR Not Detected (Not Detect.); Coronavirus OC43 PCR Not Detected (Not Detect.); Influenza A H1 PCR Not Detected (Not Detect.); Influenza A H1-2009 PCR Not Detected (Not Detect.); Influenza A H3 PCR Detected (Not Detect.); RSV PCR Not Detected (Not Detect.); Rhino/Enterovirus PCR Not Detected (Not Detect.); SARS-CoV-2 PCR Not Detected (Not Detect.)
[2025-05-06 20:00] VITALS: BP 109/51; PULSE 89; TEMP 36.7; O2SAT 94
--- NOTE | 2025-05-07 | EEG_ITS ---
History: 64yr old male with a past medical history of major depressive disorder and generalized anxiety disorder, hypertension, hyperlipidemia, type 2 diabetes and history of EtOH use. Patient presents to the emergency room with concerns of suicidal ideation and depression. Patient seen status post fall x2 as well as new onset of myoclonic movements. Patient has hand significant workup per Psychiatry Team. Psychiatric medications on hold. Significant hypertriglyceridemia on admission. improved to 380. On exam he was awake of the date, time place and self. Has a 3 word recall. Some confusion with drawing of a clock. He denies any shortness of breath, dizziness, lightheadedness or any other concerning symptoms. Noted to have some jerking motions of bilateral hands. Medication:Acetaminophen Al Hydroxide/Mg Hydroxide Amlodipine Besylate Atorvastatin Calcium Benztropine Mesylate Clonidine HCl Duloxetine HCl Ezetimibe Fenofibrate Folic Acid Hydroxyzine HCl Ibuprofen Lidocaine Lurasidone HCl Magnesium Hydroxide Methocarbamol Modafinil Multivitamins/Vitamin C Naloxone HCl Omeprazole Quetiapine Fumarate Thiamine HCl Topiramate Trazodone HCl Technical Description Photic Stimulation: Yes Hyperventilation: Omitted Behavioral State: Cooperative State of Consciousness: Awake Skull Defect: None Sedation: None Handedness: Duration: 25:06 Human Resources Leader Comments: Last Meal: Time / date of last symptom: Description: The waking background activity consists of diffuse 6-7 hertz posteriorly prominent theta with frequent paroxysmal delta discharges lasting 1-4 seconds in a generalized distribution high-voltage between 1 and 3 hertz. A few instances of sharp and slow discharges also seen in a generalized distribution with a right frontal predominance. Photic stimulation is without activation. Hyperventilation was omitted. Impression: This is an abnormal EEG with generalized background slowing and frequent bursts of generalized paroxysmal delta which could correlate with a seizure disorder. Clinical correlation is suggested MTDD
--- NOTE | 2025-05-07 | ECG_ITS ---
Test Reason : CHECK QT Blood Pressure : */* mmHG Vent. Rate : 98 BPM Atrial Rate : 98 BPM P-R Int : 154 ms QRS Dur : 94 ms QT Int : 326 ms P-R-T Axes : 65 83 87 degrees QTcB Int : 416 ms Poor data quality, interpretation may be adversely affected Normal sinus rhythm Nonspecific T wave abnormality Abnormal ECG When compared with ECG of 21-Apr-2025 08:18, No significant change was found Referred By: Amber Shipley Electronically Signed By: Leonard Velazquez
[2025-05-07 08:00] VITALS: BP 134/69; PULSE 93; TEMP 37.2; O2SAT 95
[2025-05-07 09:04] LABS: Glucose, Whole Blood 113 mg/dL (60-115)
--- NOTE | 2025-05-07 10:02 | P.PNPSI_ITS ---
Subjective Subjective Date of Service: 05/07/25 Reason For Visit: recurrent major depression, alcohol use disorder Subjective Notes: Conditional Voluntary Healthcare Proxy: No Guardianship: No Medical Problems Affecting Mental Status: No Interim History: Team reported this a.m. pt was confused, wandering, incoherent, falling with sx of dyskinesia and with word finding symptoms. Multiple diagnostics were completed. Pt was placed on one to one. Mild hyponatremia was found and fluid restriction of 1200 was suggested. Pt when we met is fatigued, oriented to person, place (he had not been oriented to place at different times during the day). He was in the kitchen for a time this afternoon watching TV. Team report an increase in confusion when taking him back to his room. Benztropine dose x 1 with moderate effect. This was scheduled as a result. Cymbalta, Provigil and Latuda are being held today. Hospitalist team has added more labs. MRI prescreen ordered as well. Reviewed all testing with pt's who reports at home, pt is on a high dose of prescribed [place] 3. She will bring this in so we may re-start it. Medication Compliance: Yes Side effects from medications: Yes (???) Attending Groups: No Review of Systems Acute medical concerns: Yes as noted Review of Systems Review of Systems mse change Diagnostics Vital Signs (24Hr): Vital Signs - 24 hr 05/06/25 20:00 05/07/25 08:00 Temperature 98.1 F 99.0 F Pulse Rate 89 93 Blood Pressure 109/51 L 134/69 Pulse Oximetry 94 95 Oxygen Delivery Method Room Air BMI result Body Mass Index 36.3 Labs 05/07/25 11:34 05/07/25 11:34 Labs: Laboratory Results - last 48 hr 05/06/25 05/06/25 05/07/25 09:36 09:36 08:13 POC Glucose 113 Respiratory Panel [place] See Note Adenovirus (Rapid PCR) Not Detected B.pert (TEM-PCR) Not Detected B.parapertussis DNA PCR Not Detected C. pneumoniae DNA (PCR) Not Detected Coronavirus OC43 (PCR) Not Detected Coronavirus HKU1 (PCR) Not Detected Coronavirus 229E (PCR) Not Detected Coronavirus NL63 (PCR) Not Detected Human Metapneumovir PCR Not Detected Influenza A (RT-PCR) Not Detected Influenza A (H1) PCR Not Detected Influ A (H1/09) PCR Not Detected Influenza A (H3) PCR Detected A Influenza Type A (PCR) NEGATIVE Influenza B (RT-PCR) Not Detected Influenza Type B (PCR) NEGATIVE M. pneumoniae (PCR) Not Detected Parainfluenza 1 (PCR) Not Detected Parainfluenza 2 (PCR) Not Detected Parainfluenza 3 (PCR) Not Detected Parainfluenza 4 (PCR) Not Detected RSV (PCR) Not Detected RSV RNA Qual (PCR) NEGATIVE Entero/Rhino (PCR) Not Detected SARS-CoV-2 RNA (RT-PCR) NEGATIVE Not Detected Imaging Radiology Impressions: ITS Impressions Ankle X-Ray 04/11/25 13:50 IMPRESSION: Status post tibiotalar arthroplasty. Degenerative changes as described. Electronically signed by: Jony Olivas MD 04/11/2025 01:59 PM EST RP Foot X-Ray 04/11/25 13:51 IMPRESSION: Status post tibiotalar arthroplasty. Degenerative changes as described. Electronically signed by: Jony Olivas MD 04/11/2025 01:59 PM EST RP Chest X-Ray 05/07/25 09:24 IMPRESSION: No acute airspace disease. Stable chest. Electronically signed by: Maynor Song MD 05/07/2025 09:37 AM EST RP Medications Medications Current Medications Acetaminophen (Acetaminophen 325 Mg Tablet) 650 mg PO Q6H PRN PRN Reason: Headache/Pain, Scale 1-10 Last Admin: 04/26/25 11:20 Dose: 650 mg Al Hydroxide/Mg Hydroxide (Magnesium Hydrox/Alum Hydrox 30 Ml Oral.Susp) 30 ml PO Q6H PRN PRN Reason: Heartburn/Nausea Amlodipine Besylate (Amlodipine Besylate 10 Mg Tablet) 10 mg PO DAILY PAYAM; Protocol Last Admin: 05/07/25 08:53 Dose: 10 mg Atorvastatin Calcium (Atorvastatin Calcium 80 Mg Tablet) 80 mg PO BEDTIME PAYAM Last Admin: 05/06/25 22:25 Dose: 80 mg Clonidine HCl (Clonidine Hcl 0.1 Mg Tablet) 0.1 mg PO Q4H PRN; Protocol PRN Reason: severe anxiety Last Admin: 05/05/25 18:49 Dose: 0.1 mg Duloxetine HCl (Duloxetine Hcl 60 Mg Capsule.Dr) 60 mg PO BEDTIME [facility] On Hold: 05/07/25 09:17 Last Admin: 05/06/25 22:24 Dose: 60 mg Ezetimibe (Ezetimibe 10 Mg Tablet) 10 mg PO DAILY [facility] Last Admin: 05/07/25 08:54 Dose: 10 mg Fenofibrate (Fenofibrate 160 Mg Tablet) 160 mg PO DAILY [facility] Last Admin: 05/07/25 08:54 Dose: 160 mg Folic Acid (Folic Acid 1 Mg Tablet) 1 mg PO DAILY [facility] Last Admin: 05/07/25 08:54 Dose: 1 mg Hydroxyzine HCl (Hydroxyzine Hcl 50 Mg Tablet) 50 mg PO Q6H PRN PRN Reason: mild anxiety Last Admin: 05/06/25 16:48 Dose: 50 mg Ibuprofen (Ibuprofen 800 Mg Tablet) 800 mg PO Q8H PRN PRN Reason: Headache/Pain, Scale 1-10 Last Admin: 05/06/25 16:48 Dose: 800 mg Lidocaine (Lidocaine 4 % Patch Adh..Patch) 0.5 patch TRANSDERMA DAILY PRN; Protocol PRN Reason: back pain Lurasidone HCl (Lurasidone Hcl 80 Mg Tablet) 80 mg PO 1700 [facility] Last Admin: 05/06/25 16:48 Dose: 80 mg Magnesium Hydroxide (Milk Of Magnesia 30 Ml Oral.Susp) 30 ml PO DAILY PRN PRN Reason: Constipation Methocarbamol (Methocarbamol 500 Mg Tablet) 500 mg PO TID [facility] Last Admin: 05/07/25 08:54 Dose: 500 mg Modafinil (Modafinil 100 Mg Tablet) 100 mg PO DAILY [facility] Last Admin: 05/07/25 08:54 Dose: 100 mg Multivitamins/Vitamin C (Multivitamin Tablet) 1 tab PO DAILY [facility] Last Admin: 05/07/25 08:54 Dose: 1 tab Naloxone HCl (Naloxone Hcl 0.4 Mg/Ml Vial) 0.04 mg IVPUSH Q5M PRN PRN Reason: Excessive sedation or RR < 8 Naloxone HCl (Naloxone Hcl 0.4 Mg/Ml Vial) 0.04 mg IVPUSH Q5M PRN PRN Reason: Excessive sedation or RR < 8 Naltrexone HCl (Naltrexone Hcl 50 Mg Tablet) 50 mg PO DAILY [facility] Last Admin: 05/07/25 08:54 Dose: 50 mg Omeprazole (Omeprazole 20 Mg Capsule.) 20 mg PO BEDTIME PAYAM Last Admin: 05/06/25 22:25 Dose: 20 mg Quetiapine Fumarate (Quetiapine Fumarate 25 Mg Tablet) 25 mg PO TID PRN PRN Reason: breakthrough anxiety Last Admin: 05/05/25 20:28 Dose: 25 mg Thiamine HCl (Thiamine Hcl 100 Mg Tablet) 100 mg PO DAILY PAYAM Last Admin: 05/07/25 08:54 Dose: 100 mg Topiramate (Topiramate 25 Mg Tablet) 50 mg PO BEDTIME PAYAM Last Admin: 05/06/25 22:26 Dose: 50 mg Trazodone HCl (Trazodone Hcl 100 Mg Tablet) 100 mg PO BEDTIME PAYAM Last Admin: 05/06/25 22:25 Dose: 100 mg Trazodone HCl (Trazodone Hcl 50 Mg Tablet) 50 mg PO BEDTIME PRN PRN Reason: Insomnia Last Admin: 04/21/25 21:48 Dose: 50 mg Allergies Allergies Allergy/AdvReac Type Severity Reaction Status Date / Time No Known Allergies Allergy Verified 04/01/25 12:28 Assessment & Plan Assessment & Plan (1) Major depressive disorder, recurrent severe without psychotic features: Status: Acute Code(s): F33.2 - Major depressive disorder, recurrent severe without psychotic features (2) Hypertriglyceridemia: Status: Acute Code(s): E78.1 - Pure hyperglyceridemia Plan PLAN: 64-year-old male with medical history of hypertension, type 2 diabetes, hyperlipidemia, compression fracture of L1, and psychiatric history of major depressive disorder, anxiety, and suicidal ideation, presented to [facility] ED on 04/01/2025 for worsening depression, SI, and a fall. Imaging were unrevealing. He was transferred to the ICU for treatment of metabolic syndrome. He endorsed SI before his discharge from the medical unit and therefore was transferred to yesterday. On interview with this provider, patient states that the reason for his psychiatric admission is suicide ideation and severe depression. He reports severe depression on/off, mostly on for the past several years. He feels hopeless, helpless, and worthless. He lacks interest to do things and has low energy. His symptoms are usually well controlled while on medication. However, he relapsed on drinking alcohol 3 weeks ago and stopped taking his psychotropic medications. He was drinking 5 or more nips daily. Prior to his recent relapse, he was sober for 2 years. He admits that his drinking may have worsened his depressive symptoms. He states that he stopped taking his medications because I didn't care anymore. He currently experiencing severe anxiety and depression. Regarding question about suicide ideation, he states that he does not have a plan, but if I went to sleep, I don't care if don't wake up. He denies hypomania or kaveh episodes. He denies HI/AVH. He reports severe left-sided low back pain which started after he fell the day before he presented to [facility] ED. CT abdomen/pelvis revealed acute to subacute superior endplate compression fracture at L1. His goal for this hospitalization is that I want to feel better about myself, and to get back on his medications. Formulation/Clinical reasoning: Patient has chronic anxiety and depression symptoms which worsened in the past 3 weeks when he stopped taking his psychotropic medications and relapsed on alcohol. His symptoms are well controlled on medications. Will continue current treatment regimen and make adjustment as needed. If he fails to respond to treatment, ECT may be ideal since it was effective in the past. Referred to addiction medicine. Lidocaine patch ordered and PT referral made for back pain. 04/10: Patient continues to be severely anxious and depressed. He also continues to experience intermittent left-sided low back pain. No SI/HI/AVH. Continue current treatment regimen. Encourage groups and to engage in physical therapy. Patient may receive inpatient ECT if he does not improve. Verbalized understanding and agreed with the plan. 04/11: Continue tx ECT consult Encourage milieu Right foot/ankle xrays 04/12 Patient says that his mood is better but he remains very anxious. Discussed options and patient agrees to trying Seroquel p.r.n. after reviewing risks/side effects of antipsychotics. 04/14: The depression is somewhat less. Anxiety is high Reports anergy as well I will do what I need to to feel better. Reviewed in team with Dr. May and Dr. Jacob. Dr. May met with pt and ECT will begin on 04/21. Denies SI,HI,AH,VH, SIBS Reports an increase of sleep and intact appetite. Pt asks to return to a regular diet as he reports poor choices on diabetic regime. Also asks that he not receive a safety tray. Intermittent group attendance Over the weekend Clonidine ordered prn along with Seroquel prn and Lidocaine Patch for pain. No new medical/diagnostic results. Plan: Provigil trial. 04/15: Pt reports Provigil has helped this a.m. Pt agrees to ECT trial and will attend milieu groups and will agree to CSS post discharge when ECT is completed. Today, discussed antidepressant trials. Identifies Venlafaxine as most helpful by history. Discussed this, along with Cymbalta with some benefits for pain mgt. Pt would like to trial Cymbalta. Attending groups this afternoon. Plan: Cymbalta 20 mg daily 04/16: Team reports pt slept last evening. He received medical clearance for ECT today Tolerating Cymbalta, Provigil. Will begin Lexapro tapering to 15 mg this evening Not attending groups Rates anxiety/depressive sx 8 today. 04/17/25: Meet with patient in assigned room, report no issues with appetite or sleep. Report anxiety an 8/10 and depression a 7/10. He eats breakfast in room. Denies alcohol craving. Report he went to a group yesterday. Denies SI/SIB/HI/AVH Per nursing, meds compliant, slept for 7 hours, compliant with meds, no side effect. mostly isolated to self in room. Constricted affect.Continue to encourage group participation. 04/18/25: Pt denies SI,HI,AH,VH He is attending some groups He is visable today in the milieu. He has informed his he as a fracture in his back and is unsure of tx plan. called pt's social media content specialist to clarify. This was diagnosed when pt was on medicine, having a abdominal diagnostic. On 04/01 abdominal films for pancreatitis were completed. Compression Fx found on L1. STR was suggested by PT when discharged with no further recs when transferred to M5. Nehemias Fuller of PT has been following pt on M5 with exercises, stretching and observation with ambulation. He will need OP PT upon DC. Pt is anxious, apprehensive regarding ECT, however believes this is the appropriate thing to do. Discussed Cymbalta titration to 30 mg and decrease of Escitalopram to 10 mg which he agrees with. 04/19/25: Met with patient in group room A where patient spent time after breakfast watching TV. Reports anxiety 7, and depression is 6/10. Reported that he went to 1 group yesterday. Per nursing, patient slept for 7 hours, compliant with medications. Denies side effects but reports some hand tremors which be from medication or from chronic alcohol abuse. We will continue to monitor. No SI/SIB/HI/AVH. Per ECT consult provider note: Patient has not had ongoing stability from depression for an extended period of time. 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 He did respond to a course of ECT in December and did speak with the patient at the only way that I would recommend another course of ECT at this time would be if the patient will willing to do aggressive treatment including possibility if residential sober home and show a commitment to sobriety otherwise his default appears to be to going back to drinking which also has involved not taking responsibility lack of honesty at times in what he is doing in unless he could commit to this that it would be very hard to achieve any stability. Patient appeared to understand this and patient wish strongly to go forward with ECT as he felt it had been quite helpful and agreed with the above provisions also discussed with the patient the ongoing in potentially severe medical consequences of his chronic alcohol use 04/20/25: Meet with patient in room where he is eating lunch. Report that he does not want to eat and be around with people. Denies sleeping or eating appetite uses. Continue report moderate to severe anxiety of a 7/10 and depression a 6/10. Denies SI/SIB/HI/AVH. Does not have alcohol craving at this moment. Flat/constricted affect. He is looking forward to having ECT tomorrow which he was told by his primary attending. Can observed him sometimes in dinning area but keep to self, not talk to anyone unless approach. Able to make needs known. Per nursing, patient slept for 8 hours, denies side effects from medications. Report to nursing staff with same anixety and depression level. Consistent with report. Continue with current plan. Nursing staff to prapare patient for ECT per protocol. 04/21/25: First ECT treatment today which was delayed until this afternoon. Got back from procedure, denies side effects. Denies [place] but feel a little bit tired. Report anxiety and depression as moderate. No behavior issues. Resting in bed after ECT. Encourage groups when able to/ tolerated. Denies SI/SIB/HI/AVH. Flat affect. Continue with current plan. Lipid profile: elevated. 04/22/25:Trever reports his first ECT went well and he is looking forward to continuing the series. No adverse effects reported from cross taper from Escitalopram to Duloxetine, will continue that this evening. Pt reports he is attending some groups, today, however, he is resting in bed (no groups currently occurring, however he does have a list on his bedside table). Denies SI, HI,AH, VH. Plan: Continue tx 04/23/25: ECT Treatment #2. Attending groups, Resting this afternoon, tired after the treatment. Denies SI,HI,AH,VH. I am trying . Team attempting to assist pt to be more engaged and active when in group. Continue tx. 04/24/25: Continue tx. 04/25/25: Continue tx. 04/26/25:Reviewed with team and reviewed plan of care. Team reports minimal improvement with ECT #3 Met with pt who appears brighter and who is up and about the unit this a.m. This afternoon, pt is in bed, reporting post ECT headache has not really resolved from 04/25, however, he feels the depression is decreasing. Ibuprofen ordered prn for headache. 04/28: Continue tx 05/02/25: ECT #6. Pt will continue treatments next week. is very upset-today has been caustic with team, with Matilde per their report. Call to who does not want pt to go to [facility] as she reports what she has read has not been appropriate reviews and she worries he will do poorly there and relapse. She reports she was told that drugs are sold at [facility]. We discussed that patients with both alcohol and substance addiction are treated there. Reviewed with the extensive efforts pt's social media content specialist, Thu has put into his treatment, bed searches and exploration of options for ongoing care. agrees that Thu has gone above and beyond, however, she continues to disagree with [facility]. She describes what has been read as frightening . Discussed parameters of pts current insurance and limited number of options. Encouraged her to contact [facility] to discuss options as pt will be making changes soon. Pt, post ECT denies SI,HI,AH,VH. He was informed he will not be going to [facility] and will have ECT on 05/05/25. 05/03Patient reports that he is good and looking forward to discharge; discussed how he is working with social work regarding a specific program. Says he plans to get ECT on Friday 05/04 remains doing well; ECT tomorrow 05/05 ECT #7. Slept eight hours Denies SI,HI,AH,VH Cymbalta dosing changed to HS looking at a program who has interest in pt in [place] 05/06/25: 05/06/25:Flu sx present with fever. Slept 8 hours Denies SI,HI,AH,VH +Depressive sx, +anergy, +fatigue, mild confusion. ECT will cancel for 05/07 due to flu/fever 05/07/25: Team reported this a.m. pt was confused, wandering, incoherent, falling with sx of dyskinesia and with word finding symptoms. Multiple diagnostics were completed. Pt was placed on one to one. Mild hyponatremia was found and fluid restriction of 1200 was suggested. Pt when we met is fatigued, oriented to person, place (he had not been oriented to place at different times during the day). He was in the kitchen for a time this afternoon watching TV. Team report an increase in confusion when taking him back to his room. Benztropine dose x 1 with moderate effect. This was scheduled as a result. Cymbalta, Provigil and Latuda are being held today. Hospitalist team has added more labs. MRI prescreen ordered as well. Reviewed all testing with pt's who reports at home, pt is on a high dose of prescribed [place] 3. She will bring this in so we may re-start it. Plan: Continue to monitor MRI prep Hospitalist team as ordered ESR,CRP, B12, Folate, TSH Patient is stable on current medications; he is in good behavioral and impulse control and appropriate with peers and staff Plan CV Q15min ECT #1: 04/21/25. ECT #4 04/29/25 ECT #5 04/30 ECT #6 05/02 ECT #5 [id number] -Add Seroquel 25 mg p.r.n. for anxiety Diagnostics as needed. Collateral contact. Continue remainder of regime. Encouraged full milieu. Discharge planning. Reason for continued inpatient stay Substantial Risk for: med/psych decompensation Time Spent With Patient Time: Total time managing care of this patient today ____ minutes.
[2025-05-07 11:37] LABS: MANUAL DIFF FLAG NO
[2025-05-07 11:41] LABS: Hematocrit 41.5 % (42.0-52.0); Hemoglobin 14.4 g/dl (14.0-18.0); Imm Gran Abs Auto 0.04 X10*3/uL (0.00-0.03); Imm Gran Pct Auto 0.7 % (0.0-0.4); Lymphocytes Absolute Auto 0.7 X10*3/uL (1.2-4.9); Mean Corpuscular HGB Conc 34.7 g/dl (31.0-36.0); Mean Corpuscular Hemoglobin 29.8 pg (27.0-33.0); Mean Corpuscular Volume 85.9 fL (80.0-98.0); NRBC Abs Auto 0.000 X10*3/uL (0.0-0.012); NRBC Pct Auto 0.0 /100WBC (0.0-0.2); Platelet Count 232 X10*3/uL (160-400); Red Blood Count 4.83 X10*6/uL (4.60-5.80); White Blood Count 6.1 X10*3/uL (4.8-10.8)
[2025-05-07 11:58] LABS: Alanine Aminotransferase 43 U/L (0-40); Albumin Level 4.7 g/dL (3.5-5.0); Alkaline Phosphatase 70 U/L (39-117); Anion Gap 12 (12-20); Aspartate Amino Transferase 41 U/L (5-37); Blood Urea Nitrogen 13 mg/dL (9-16); Calcium 9.4 mg/dL (8.4-10.2); Carbon Dioxide 21 mmol/L (22-29); Chloride 104 mmol/L (96-108); Creatinine Clr Calc Pharmacy 80.2; Estimated Glomerular Filt Rate > 60; Potassium 3.8 mmol/L (3.3-5.1); Sodium 133 mmol/L (135-145); Total Protein 7.5 g/dL (6.5-8.0)
[2025-05-07 12:00] LABS: Alanine Aminotransferase 43 U/L (0-40); Albumin Level 4.7 g/dL (3.5-5.0); Alkaline Phosphatase 70 U/L (39-117); Anion Gap 11 (12-20); Aspartate Amino Transferase 41 U/L (5-37); Blood Urea Nitrogen 12 mg/dL (9-16); Calcium 9.5 mg/dL (8.4-10.2); Carbon Dioxide 21 mmol/L (22-29); Chloride 104 mmol/L (96-108); Creatinine Clr Calc Pharmacy 80.2; Estimated Glomerular Filt Rate > 60; Potassium 3.8 mmol/L (3.3-5.1); Sodium 132 mmol/L (135-145); Total Protein 7.5 g/dL (6.5-8.0)
--- NOTE | 2025-05-07 12:18 | HO.PM.IMCN ---
History of Present Illness Data of Consult Service Date: 05/08/25 Primary Care Provider: Unknown Physician HPI Reason for consult: Dyskinesia 64-year-old male with a past medical history of major depressive disorder and generalized anxiety disorder , hypertension, hyperlipidemia, type 2 diabetes and history of EtOH use. Patient presents to the emergency room with concerns of suicidal ideation and depression. Patient seen status post fall x2 as well as new onset of myoclonic movements. Patient has had significant workup per Psychiatry team. Psychiatric medications on hold. Patient has significant hypertriglyceridemia on admission, improved to 380. On exam he is aware of the date, time, place, and self. Has a 3 word recall. Has some confusion with drawing of a clock. He denies any shortness of breath, dizziness, lightheadedness or any other concerning symptoms. Noted to have some jerking motions of bilateral hands. Review of Systems Review of Systems: Patient has no acute medical complaints at this time All other systems are reviewed and are negative PMFSH Medical History Alcoholic liver disease Major depressive disorder, recurrent severe without psychotic features Hypertriglyceridemia Fracture of nasal bone Alcohol use disorder Fatigue Social History Household Members: Spouse Housing: House Do you presently have visiting nurse or other home services: No Alcohol intake: current Alcohol intake frequency: 3 or more drinks per day Alcohol type: hard liquor Comment: PT Consult ordered Patient Tobacco Use Status: Never used Tobacco Currently Displaying Signs/Symptoms of Drug Intoxication Withdrawal: No Have you been hit, kicked, punched, or otherwise hurt by someone within the past year? If so, by whom?: No Do you feel safe in your current relationship?: Yes Is there a partner from a previous relationship who is making you feel unsafe now?: No Are you made to feel afraid or neglected: No Spiritual Healthcare Practices: Temple Are you DNR?: No Advance Directives: Yes Advance Directives Information Provided: No Advance Directives on File: Yes Advance Directives Date on File: 04/02/25 Do you have thoughts of harming others: None Do you have a plan to hurt others: No Plan Recently lost weight without trying: No Eating poorly because of decreased appetite: No Nutrition Risks: No Nutritional Risk Poor oral hygiene: No service: No Sexual orientation: Straight/Heterosexual Meds Allergies Allergy/AdvReac Type Severity Reaction Status Date / Time No Known Allergies Allergy Verified 04/01/25 12:28 Active Medications: Current Medications Acetaminophen (Acetaminophen 325 Mg Tablet) 650 mg PO Q6H PRN PRN Reason: Headache/Pain, Scale 1-10 Last Admin: 04/26/25 11:20 Dose: 650 mg Al Hydroxide/Mg Hydroxide (Magnesium Hydrox/Alum Hydrox 30 Ml Oral.Susp) 30 ml PO Q6H PRN PRN Reason: Heartburn/Nausea Amlodipine Besylate (Amlodipine Besylate 10 Mg Tablet) 10 mg PO DAILY [facility]; Protocol Last Admin: 05/07/25 08:53 Dose: 10 mg Atorvastatin Calcium (Atorvastatin Calcium 80 Mg Tablet) 80 mg PO BEDTIME [facility] Last Admin: 05/06/25 22:25 Dose: 80 mg Clonidine HCl (Clonidine Hcl 0.1 Mg Tablet) 0.1 mg PO Q4H PRN; Protocol PRN Reason: severe anxiety Last Admin: 05/05/25 18:49 Dose: 0.1 mg Duloxetine HCl (Duloxetine Hcl 60 Mg Capsule.Dr) 60 mg PO BEDTIME PAYAM On Hold: 05/07/25 09:17 Last Admin: 05/06/25 22:24 Dose: 60 mg Ezetimibe (Ezetimibe 10 Mg Tablet) 10 mg PO DAILY [facility] Last Admin: 05/07/25 08:54 Dose: 10 mg Fenofibrate (Fenofibrate 160 Mg Tablet) 160 mg PO DAILY [facility] Last Admin: 05/07/25 08:54 Dose: 160 mg Folic Acid (Folic Acid 1 Mg Tablet) 1 mg PO DAILY [facility] Last Admin: 05/07/25 08:54 Dose: 1 mg Hydroxyzine HCl (Hydroxyzine Hcl 50 Mg Tablet) 50 mg PO Q6H PRN PRN Reason: mild anxiety Last Admin: 05/06/25 16:48 Dose: 50 mg Ibuprofen (Ibuprofen 800 Mg Tablet) 800 mg PO Q8H PRN PRN Reason: Headache/Pain, Scale 1-10 Last Admin: 05/06/25 16:48 Dose: 800 mg Lidocaine (Lidocaine 4 % Patch Adh..Patch) 0.5 patch TRANSDERMA DAILY PRN; Protocol PRN Reason: back pain Lurasidone HCl (Lurasidone Hcl 80 Mg Tablet) 80 mg PO 1700 [facility] On Hold: 05/07/25 12:13 Last Admin: 05/06/25 16:48 Dose: 80 mg Magnesium Hydroxide (Milk Of Magnesia 30 Ml Oral.Susp) 30 ml PO DAILY PRN PRN Reason: Constipation Methocarbamol (Methocarbamol 500 Mg Tablet) 500 mg PO TID [facility] Last Admin: 05/07/25 08:54 Dose: 500 mg Modafinil (Modafinil 100 Mg Tablet) 100 mg PO DAILY PAYAM On Hold: 05/07/25 12:14 Last Admin: 05/07/25 08:54 Dose: 100 mg Multivitamins/Vitamin C (Multivitamin Tablet) 1 tab PO DAILY [facility] Last Admin: 05/07/25 08:54 Dose: 1 tab Naloxone HCl (Naloxone Hcl 0.4 Mg/Ml Vial) 0.04 mg IVPUSH Q5M PRN PRN Reason: Excessive sedation or RR < 8 Naloxone HCl (Naloxone Hcl 0.4 Mg/Ml Vial) 0.04 mg IVPUSH Q5M PRN PRN Reason: Excessive sedation or RR < 8 Naltrexone HCl (Naltrexone Hcl 50 Mg Tablet) 50 mg PO DAILY [facility] Last Admin: 05/07/25 08:54 Dose: 50 mg Omeprazole (Omeprazole 20 Mg Capsule.Dr) 20 mg PO BEDTIME [facility] Last Admin: 05/06/25 22:25 Dose: 20 mg Quetiapine Fumarate (Quetiapine Fumarate 25 Mg Tablet) 25 mg PO TID PRN PRN Reason: breakthrough anxiety Last Admin: 05/05/25 20:28 Dose: 25 mg Thiamine HCl (Thiamine Hcl 100 Mg Tablet) 100 mg PO DAILY [facility] Last Admin: 05/07/25 08:54 Dose: 100 mg Topiramate (Topiramate 25 Mg Tablet) 50 mg PO BEDTIME [facility] Last Admin: 05/06/25 22:26 Dose: 50 mg Trazodone HCl (Trazodone Hcl 100 Mg Tablet) 100 mg PO BEDTIME [facility] Last Admin: 05/06/25 22:25 Dose: 100 mg Trazodone HCl (Trazodone Hcl 50 Mg Tablet) 50 mg PO BEDTIME PRN PRN Reason: Insomnia Last Admin: 04/21/25 21:48 Dose: 50 mg Home Medications ?Medication ?Instructions ?Recorded ?Confirmed ?Last Taken ?Type ezetimibe 10 mg tablet (Zetia) 10 mg PO DAILY 12/19/24 04/08/25 03/23/25 History omega-3 acid ethyl esters 1 gram 2 cap PO BID 12/19/24 04/08/25 03/23/25 History capsule rosuvastatin 20 mg tablet 20 mg PO DAILY 12/19/24 04/08/25 03/23/25 History amlodipine 10 mg tablet 10 mg PO DAILY 01/31/25 04/08/25 03/23/25 History fenofibrate 160 mg tablet 160 mg PO DAILY 01/31/25 04/08/25 03/23/25 History nwdfjaui-ev-zldly 300 mcg-K 60 1 tab PO DAILY 01/31/25 04/08/25 03/23/25 History mcg-lycop 600 mcg-lutein 300 mcg tablet (Centrum Silver Men) topiramate 50 mg tablet 50 mg PO BEDTIME 01/31/25 04/08/25 03/23/25 History trazodone 100 mg tablet 100 mg PO BEDTIME insomnia 04/02/25 04/08/25 03/23/25 History Physical Exam Vital Signs and Narrative: Vital Signs: Last Vital Signs Temp 99.0 F 05/07/25 08:00 Pulse 93 05/07/25 08:00 Resp 18 05/06/25 08:00 BP 134/69 05/07/25 08:00 Pulse Ox 95 05/07/25 08:00 O2 Del Method Room Air 05/06/25 20:00 O2 Flow Rate 6 05/05/25 13:47 BMI result Body Mass Index 36.3 Alert and oriented X3, calm and cooperative. Answers questions. Neuro: CN II-X11 intact, no deficits, visual acuity intact EYES: PERRLA, EOM intact ENT: Hearing intact, MMM Cardiac: S1 S2 RRR, No ectopy Pulmonary: lungs clear to auscultation, No increased WOB. Abdominal: BS active in all 4 quadrants, no guarding or tenderness MSK: Strength 5/5 upper and lower extremities. Mild jerking of bilateral hands. : Deferred Extremities: No edema in lower extremities Psych: Mood stable, Quiet and cooperative. Skin: Warm and dry, Intact Results Labs 05/07/25 11:34 05/07/25 11:34 Labs: Laboratory Results - last 24 hr 05/07/25 05/07/25 05/07/25 08:13 11:34 11:34 MCV 85.9 Cancelled MCH 29.8 MCHC RDW Plt Count MPV Immature Gran % (Auto) Neut % (Auto) Lymph % (Auto) [place] % (Auto) Eos % (Auto) Baso % (Auto) Lymph # (Auto) [place] # (Auto) Eos # (Auto) Baso # (Auto) Abs Immat Gran (auto) Absolute Neuts (auto) Absolute Nucleated RBC Nucleated RBC % (auto) Anion Gap Estim Creat Clear Calc Estimated GFR POC Glucose 113 Random Glucose Calcium Total Bilirubin AST ALT Alkaline Phosphatase Total Protein Albumin 05/07/25 05/07/25 05/07/25 11:34 11:34 11:34 MCV MCH Cancelled MCHC 34.7 Cancelled RDW 12.5 Cancelled Plt Count 232 MPV Immature Gran % (Auto) Neut % (Auto) Lymph % (Auto) [place] % (Auto) Eos % (Auto) Baso % (Auto) Lymph # (Auto) [place] # (Auto) Eos # (Auto) Baso # (Auto) Abs Immat Gran (auto) Absolute Neuts (auto) Absolute Nucleated RBC Nucleated RBC % (auto) Anion Gap Estim Creat Clear Calc Estimated GFR POC Glucose Random Glucose Calcium Total Bilirubin AST ALT Alkaline Phosphatase Total Protein Albumin 05/07/25 05/07/25 05/07/25 11:34 11:34 11:34 MCV MCH MCHC RDW Plt Count Cancelled MPV 9.3 L Cancelled Immature Gran % (Auto) 0.7 H Cancelled Neut % (Auto) 71.4 Lymph % (Auto) [place] % (Auto) Eos % (Auto) Baso % (Auto) Lymph # (Auto) [place] # (Auto) Eos # (Auto) Baso # (Auto) Abs Immat Gran (auto) Absolute Neuts (auto) Absolute Nucleated RBC Nucleated RBC % (auto) Anion Gap Estim Creat Clear Calc Estimated GFR POC Glucose Random Glucose Calcium Total Bilirubin AST ALT Alkaline Phosphatase Total Protein Albumin 05/07/25 05/07/25 05/07/25 11:34 11:34 11:34 MCV MCH MCHC RDW Plt Count MPV Immature Gran % (Auto) Neut % (Auto) Cancelled Lymph % (Auto) 11.6 L Cancelled [place] % (Auto) 11.3 H Cancelled Eos % (Auto) 3.9 Baso % (Auto) Lymph # (Auto) [place] # (Auto) Eos # (Auto) Baso # (Auto) Abs Immat Gran (auto) Absolute Neuts (auto) Absolute Nucleated RBC Nucleated RBC % (auto) Anion Gap Estim Creat Clear Calc Estimated GFR POC Glucose Random Glucose Calcium Total Bilirubin AST ALT Alkaline Phosphatase Total Protein Albumin 05/07/25 05/07/25 05/07/25 11:34 11:34 11:34 MCV MCH MCHC RDW Plt Count MPV Immature Gran % (Auto) Neut % (Auto) Lymph % (Auto) [place] % (Auto) Eos % (Auto) Cancelled Baso % (Auto) 1.1 Cancelled Lymph # (Auto) 0.7 L Cancelled [place] # (Auto) 0.7 Eos # (Auto) Baso # (Auto) Abs Immat Gran (auto) Absolute Neuts (auto) Absolute Nucleated RBC Nucleated RBC % (auto) Anion Gap Estim Creat Clear Calc Estimated GFR POC Glucose Random Glucose Calcium Total Bilirubin AST ALT Alkaline Phosphatase Total Protein Albumin 05/07/25 05/07/25 05/07/25 11:34 11:34 11:34 MCV MCH MCHC RDW Plt Count MPV Immature Gran % (Auto) Neut % (Auto) Lymph % (Auto) [place] % (Auto) Eos % (Auto) Baso % (Auto) Lymph # (Auto) [place] # (Auto) Cancelled Eos # (Auto) 0.2 Cancelled Baso # (Auto) 0.1 Cancelled Abs Immat Gran (auto) 0.04 H Absolute Neuts (auto) Absolute Nucleated RBC Nucleated RBC % (auto) Anion Gap Estim Creat Clear Calc Estimated GFR POC Glucose Random Glucose Calcium Total Bilirubin AST ALT Alkaline Phosphatase Total Protein Albumin 05/07/25 05/07/25 05/07/25 11:34 11:34 11:34 MCV MCH MCHC RDW Plt Count MPV Immature Gran % (Auto) Neut % (Auto) Lymph % (Auto) [place] % (Auto) Eos % (Auto) Baso % (Auto) Lymph # (Auto) [place] # (Auto) Eos # (Auto) Baso # (Auto) Abs Immat Gran (auto) Cancelled Absolute Neuts (auto) 4.4 Cancelled Absolute Nucleated RBC 0.000 Cancelled Nucleated RBC % (auto) 0.0 Anion Gap Estim Creat Clear Calc Estimated GFR POC Glucose Random Glucose Calcium Total Bilirubin AST ALT Alkaline Phosphatase Total Protein Albumin 05/07/25 05/07/25 05/07/25 11:34 11:34 11:34 MCV MCH MCHC RDW Plt Count MPV Immature Gran % (Auto) Neut % (Auto) Lymph % (Auto) [place] % (Auto) Eos % (Auto) Baso % (Auto) Lymph # (Auto) [place] # (Auto) Eos # (Auto) Baso # (Auto) Abs Immat Gran (auto) Absolute Neuts (auto) Absolute Nucleated RBC Nucleated RBC % (auto) Cancelled Anion Gap 11 L 12 Estim Creat Clear Calc 80.2 80.2 Estimated GFR > 60 POC Glucose Random Glucose Calcium Total Bilirubin AST ALT Alkaline Phosphatase Total Protein Albumin 05/07/25 05/07/25 05/07/25 11:34 11:34 11:34 MCV MCH MCHC RDW Plt Count MPV Immature Gran % (Auto) Neut % (Auto) Lymph % (Auto) [place] % (Auto) Eos % (Auto) Baso % (Auto) Lymph # (Auto) [place] # (Auto) Eos # (Auto) Baso # (Auto) Abs Immat Gran (auto) Absolute Neuts (auto) Absolute Nucleated RBC Nucleated RBC % (auto) Anion Gap Estim Creat Clear Calc Estimated GFR > 60 POC Glucose Random Glucose 92 93 Calcium 9.5 D 9.4 Total Bilirubin 0.8 AST ALT Alkaline Phosphatase Total Protein Albumin 05/07/25 05/07/25 05/07/25 11:34 11:34 11:34 MCV MCH MCHC RDW Plt Count MPV Immature Gran % (Auto) Neut % (Auto) Lymph % (Auto) [place] % (Auto) Eos % (Auto) Baso % (Auto) Lymph # (Auto) [place] # (Auto) Eos # (Auto) Baso # (Auto) Abs Immat Gran (auto) Absolute Neuts (auto) Absolute Nucleated RBC Nucleated RBC % (auto) Anion Gap Estim Creat Clear Calc Estimated GFR POC Glucose Random Glucose Calcium Total Bilirubin 0.8 AST 41 H 41 H ALT 43 H 43 H Alkaline Phosphatase 70 Total Protein Albumin 05/07/25 05/07/25 05/07/25 11:34 11:34 11:34 MCV MCH MCHC RDW Plt Count MPV Immature Gran % (Auto) Neut % (Auto) Lymph % (Auto) [place] % (Auto) Eos % (Auto) Baso % (Auto) Lymph # (Auto) [place] # (Auto) Eos # (Auto) Baso # (Auto) Abs Immat Gran (auto) Absolute Neuts (auto) Absolute Nucleated RBC Nucleated RBC % (auto) Anion Gap Estim Creat Clear Calc Estimated GFR POC Glucose Random Glucose Calcium Total Bilirubin AST ALT Alkaline Phosphatase 70 Total Protein 7.5 7.5 Albumin 4.7 4.7 Imaging Radiologist's Impressions: Impressions Chest X-Ray 05/07/25 09:24 IMPRESSION: No acute airspace disease. Stable chest. Electronically signed by: Maynor Song MD 05/07/2025 09:37 AM [facility] [place] and Plan (1) Hypertriglyceridemia: Status: Acute Plan 64-year-old male with medical history as listed below admitted to for consideration of ECT treatment due to worsening depression. Patient has been undergoing ECT treatment, now being consulted due to new onset of dyskinesia. Depression/anxiety/EtOH use Undergoing ECT treatment Thiamine/folic acid supplementation Dyskinesia-New onset Patient CRP slightly elevated, ESR within normal limits. Not likely related to infection as patient is afebrile, benign physical exam. Likely related to FLU. TSH within normal limits, ammonia level within normal limits, triglycerides significantly improved. Magnesium within normal limits, slight elevation in sodium level. On 1200 cc fluid restrict. Head CT without any acute abnormalities, x-rays of his tib-fib, hip pelvis and femur status post fall were all negative. Chest x-ray negative without evidence of infection Patient had a normal KUB Folate and B12 levels within normal limits. Psychiatric medications on hold MRI head/brain pending Will check a UA, repeat lipid level, and recheck BMP. Possibly related to medications, no metabolic abnormalities noted. Consider neuro consult if no improvement. Hypertension/hyperlipidemia/History of hypertriglyceridemia Continue amlodipine, Zetia, and fenofibrate as well as atorvastatin. Followed by endocrinology Dr. Sotelo at [facility]. Encourage alcohol cessation. Improved to 380 Transaminitis Likely due to ETOH use. AST is improved to 41 and his ALT improved to 43. Trended downwards since admit. Type 2 diabetes A1c is 5.5 Patient will need to follow up with primary care doctor Continue diet exercise Recently lost more than 20 pounds due to lifestyle changes. Thank you for allowing me to participate in the care of this patient. Please notify medical provider with any changes in condition or concerns.
[2025-05-07 13:00] LABS: Ammonia 41 umol/L (13-55)
[2025-05-07 17:10] LABS: Magnesium 1.7 mg/dL (1.6-2.6)
[2025-05-07 17:27] LABS: Thyroid Stimulating Hormone 1.15 uIU/mL (0.32-4.0)
[2025-05-07 17:42] LABS: Folate 17.0 ng/mL (> or = 4.0); Vitamin B12 413 pg/mL (200-900)
[2025-05-07 19:55] VITALS: BP 133/73; PULSE 96; RESP 18; TEMP 38.3; O2SAT 98
[2025-05-08 08:00] VITALS: BP 127/72; PULSE 96; RESP 16; TEMP 37.9; O2SAT 94
[2025-05-08 09:02] VITALS: BP 127/72
--- NOTE | 2025-05-08 09:23 | P.PNPSI_ITS ---
Subjective Subjective Date of Service: 05/08/25 Reason For Visit: recurrent major depression, alcohol use disorder Subjective Notes: Conditional Voluntary Healthcare Proxy: No Guardianship: No Medical Problems Affecting Mental Status: No Interim History: Febrile this a.m. Sedate, sleeping. Improved this afternoon, MRI completed. Neurology consult requested. Some diagnostics continue pending. Will re-start Latuda 20 mg this evening and Cymbalta 20 mg on 05/09. Pt has no muscular stiffness, no cogwheeling on exam and reports no stiffness. Will continue Benztropine. Medication Compliance: Yes Side effects from medications: Yes (??) Attending Groups: No Review of Systems Acute medical concerns: Yes Review of Systems Review of Systems flu sx Mental Status Exam Mental Status Exam Patient Appearance: Fatigued Patient Orientation: Person, Place, Time and Situation Level of Consciousness: Alert Patient Behavior: Talkative and Confused (mild) Mood Description: Flat Affect Description: Flat Patient Cognition Impaired: No Ability to Follow Directions: Good Speech Pattern: Spontaneous Speech Memory Description: Episodic Impaired Hallucinations: None Delusions: Not Present Thought Process: Confusion (mild) Thought Content: positive for [place], positive for Circumstantial and positive for Suicidal Ideation (denies) Depressive Symptoms: Thoughts of /Suicide (denies) Judgement: Fair Diagnostics Vital Signs (24Hr): Vital Signs - 24 hr 05/07/25 19:55 05/08/25 09:02 Temperature 101 F H Pulse Rate 96 Respiratory Rate 18 Blood Pressure 133/73 127/72 Pulse Oximetry 98 Oxygen Delivery Method Room Air BMI result Body Mass Index 36.3 Labs 05/07/25 11:34 05/08/25 13:48 Labs: Laboratory Results - last 48 hr 05/06/25 05/06/25 05/07/25 09:36 09:36 08:13 WBC RBC Hgb Hct MCV MCH MCHC RDW Plt Count MPV Immature Gran % (Auto) Neut % (Auto) Lymph % (Auto) [place] % (Auto) Eos % (Auto) Baso % (Auto) Lymph # (Auto) [place] # (Auto) Eos # (Auto) Baso # (Auto) Abs Immat Gran (auto) Absolute Neuts (auto) Absolute Nucleated RBC Nucleated RBC % (auto) ESR Sodium Potassium Chloride Carbon Dioxide Anion Gap BUN Creatinine Estim Creat Clear Calc Estimated GFR POC Glucose 113 Random Glucose Calcium Magnesium Total Bilirubin AST ALT Alkaline Phosphatase Ammonia Total Creatine Kinase C-Reactive Protein Total Protein Albumin Vitamin B12 Folate TSH Respiratory Panel [place] See Note Adenovirus (Rapid PCR) Not Detected B.pert (TEM-PCR) Not Detected B.parapertussis DNA PCR Not Detected C. pneumoniae DNA (PCR) Not Detected Coronavirus OC43 (PCR) Not Detected Coronavirus HKU1 (PCR) Not Detected Coronavirus 229E (PCR) Not Detected Coronavirus NL63 (PCR) Not Detected Human Metapneumovir PCR Not Detected Influenza A (RT-PCR) Not Detected Influenza A (H1) PCR Not Detected Influ A (H1) PCR Not Detected Influenza A (H3) PCR Detected A Influenza Type A (PCR) NEGATIVE Influenza B (RT-PCR) Not Detected Influenza Type B (PCR) NEGATIVE M. pneumoniae (PCR) Not Detected Parainfluenza 1 (PCR) Not Detected Parainfluenza 2 (PCR) Not Detected Parainfluenza 3 (PCR) Not Detected Parainfluenza 4 (PCR) Not Detected RSV (PCR) Not Detected RSV RNA Qual (PCR) NEGATIVE Entero/Rhino (PCR) Not Detected SARS-CoV-2 RNA (RT-PCR) NEGATIVE Not Detected 05/07/25 05/07/25 05/07/25 11:34 11:34 11:34 WBC 6.1 Cancelled RBC 4.83 Cancelled Hgb 14.4 Hct MCV MCH MCHC RDW Plt Count MPV Immature Gran % (Auto) Neut % (Auto) Lymph % (Auto) [place] % (Auto) Eos % (Auto) Baso % (Auto) Lymph # (Auto) [place] # (Auto) Eos # (Auto) Baso # (Auto) Abs Immat Gran (auto) Absolute Neuts (auto) Absolute Nucleated RBC Nucleated RBC % (auto) ESR Sodium Potassium Chloride Carbon Dioxide Anion Gap BUN Creatinine Estim Creat Clear Calc Estimated GFR POC Glucose Random Glucose Calcium Magnesium Total Bilirubin AST ALT Alkaline Phosphatase Ammonia Total Creatine Kinase C-Reactive Protein Total Protein Albumin Vitamin B12 Folate TSH Respiratory Panel [place] Adenovirus (Rapid PCR) B.pert (TEM-PCR) B.parapertussis DNA PCR C. pneumoniae DNA (PCR) Coronavirus OC43 (PCR) Coronavirus HKU1 (PCR) Coronavirus 229E (PCR) Coronavirus NL63 (PCR) Human Metapneumovir PCR Influenza A (RT-PCR) Influenza A (H1) PCR Influ A () PCR Influenza A (H3) PCR Influenza Type A (PCR) Influenza B (RT-PCR) Influenza Type B (PCR) M. pneumoniae (PCR) Parainfluenza 1 (PCR) Parainfluenza 2 (PCR) Parainfluenza 3 (PCR) Parainfluenza 4 (PCR) RSV (PCR) RSV RNA Qual (PCR) Entero/Rhino (PCR) SARS-CoV-2 RNA (RT-PCR) 05/07/25 05/07/25 05/07/25 11:34 11:34 11:34 WBC RBC Hgb Cancelled Hct 41.5 L Cancelled MCV 85.9 Cancelled MCH 29.8 MCHC RDW Plt Count MPV Immature Gran % (Auto) Neut % (Auto) Lymph % (Auto) [place] % (Auto) Eos % (Auto) Baso % (Auto) Lymph # (Auto) [place] # (Auto) Eos # (Auto) Baso # (Auto) Abs Immat Gran (auto) Absolute Neuts (auto) Absolute Nucleated RBC Nucleated RBC % (auto) ESR Sodium Potassium Chloride Carbon Dioxide Anion Gap BUN Creatinine Estim Creat Clear Calc Estimated GFR POC Glucose Random Glucose Calcium Magnesium Total Bilirubin AST ALT Alkaline Phosphatase Ammonia Total Creatine Kinase C-Reactive Protein Total Protein Albumin Vitamin B12 Folate TSH Respiratory Panel [place] Adenovirus (Rapid PCR) B.pert (TEM-PCR) B.parapertussis DNA PCR C. pneumoniae DNA (PCR) Coronavirus OC43 (PCR) Coronavirus HKU1 (PCR) Coronavirus 229E (PCR) Coronavirus NL63 (PCR) Human Metapneumovir PCR Influenza A (RT-PCR) Influenza A (H1) PCR Influ A () PCR Influenza A (H3) PCR Influenza Type A (PCR) Influenza B (RT-PCR) Influenza Type B (PCR) M. pneumoniae (PCR) Parainfluenza 1 (PCR) Parainfluenza 2 (PCR) Parainfluenza 3 (PCR) Parainfluenza 4 (PCR) RSV (PCR) RSV RNA Qual (PCR) Entero/Rhino (PCR) SARS-CoV-2 RNA (RT-PCR) 05/07/25 05/07/25 05/07/25 11:34 11:34 11:34 WBC RBC Hgb Hct MCV MCH Cancelled MCHC 34.7 Cancelled RDW 12.5 Cancelled Plt Count 232 MPV Immature Gran % (Auto) Neut % (Auto) Lymph % (Auto) [place] % (Auto) Eos % (Auto) Baso % (Auto) Lymph # (Auto) [place] # (Auto) Eos # (Auto) Baso # (Auto) Abs Immat Gran (auto) Absolute Neuts (auto) Absolute Nucleated RBC Nucleated RBC % (auto) ESR Sodium Potassium Chloride Carbon Dioxide Anion Gap BUN Creatinine Estim Creat Clear Calc Estimated GFR POC Glucose Random Glucose Calcium Magnesium Total Bilirubin AST ALT Alkaline Phosphatase Ammonia Total Creatine Kinase C-Reactive Protein Total Protein Albumin Vitamin B12 Folate TSH Respiratory Panel [place] Adenovirus (Rapid PCR) B.pert (TEM-PCR) B.parapertussis DNA PCR C. pneumoniae DNA (PCR) Coronavirus OC43 (PCR) Coronavirus HKU1 (PCR) Coronavirus 229E (PCR) Coronavirus NL63 (PCR) Human Metapneumovir PCR Influenza A (RT-PCR) Influenza A (H1) PCR Influ A (H1/09) PCR Influenza A (H3) PCR Influenza Type A (PCR) Influenza B (RT-PCR) Influenza Type B (PCR) M. pneumoniae (PCR) Parainfluenza 1 (PCR) Parainfluenza 2 (PCR) Parainfluenza 3 (PCR) Parainfluenza 4 (PCR) RSV (PCR) RSV RNA Qual (PCR) Entero/Rhino (PCR) SARS-CoV-2 RNA (RT-PCR) 05/07/25 05/07/25 05/07/25 11:34 11:34 11:34 WBC RBC Hgb Hct MCV MCH MCHC RDW Plt Count Cancelled MPV 9.3 L Cancelled Immature Gran % (Auto) 0.7 H Cancelled Neut % (Auto) 71.4 Lymph % (Auto) [place] % (Auto) Eos % (Auto) Baso % (Auto) Lymph # (Auto) [place] # (Auto) Eos # (Auto) Baso # (Auto) Abs Immat Gran (auto) Absolute Neuts (auto) Absolute Nucleated RBC Nucleated RBC % (auto) ESR Sodium Potassium Chloride Carbon Dioxide Anion Gap BUN Creatinine Estim Creat Clear Calc Estimated GFR POC Glucose Random Glucose Calcium Magnesium Total Bilirubin AST ALT Alkaline Phosphatase Ammonia Total Creatine Kinase C-Reactive Protein Total Protein Albumin Vitamin B12 Folate TSH Respiratory Panel [place] Adenovirus (Rapid PCR) B.pert (TEM-PCR) B.parapertussis DNA PCR C. pneumoniae DNA (PCR) Coronavirus OC43 (PCR) Coronavirus HKU1 (PCR) Coronavirus 229E (PCR) Coronavirus NL63 (PCR) Human Metapneumovir PCR Influenza A (RT-PCR) Influenza A (H1) PCR Influ A () PCR Influenza A (H3) PCR Influenza Type A (PCR) Influenza B (RT-PCR) Influenza Type B (PCR) M. pneumoniae (PCR) Parainfluenza 1 (PCR) Parainfluenza 2 (PCR) Parainfluenza 3 (PCR) Parainfluenza 4 (PCR) RSV (PCR) RSV RNA Qual (PCR) Entero/Rhino (PCR) SARS-CoV-2 RNA (RT-PCR) 05/07/25 05/07/25 05/07/25 11:34 11:34 11:34 WBC RBC Hgb Hct MCV MCH MCHC RDW Plt Count MPV Immature Gran % (Auto) Neut % (Auto) Cancelled Lymph % (Auto) 11.6 L Cancelled [place] % (Auto) 11.3 H Cancelled Eos % (Auto) 3.9 Baso % (Auto) Lymph # (Auto) [place] # (Auto) Eos # (Auto) Baso # (Auto) Abs Immat Gran (auto) Absolute Neuts (auto) Absolute Nucleated RBC Nucleated RBC % (auto) ESR Sodium Potassium Chloride Carbon Dioxide Anion Gap BUN Creatinine Estim Creat Clear Calc Estimated GFR POC Glucose Random Glucose Calcium Magnesium Total Bilirubin AST ALT Alkaline Phosphatase Ammonia Total Creatine Kinase C-Reactive Protein Total Protein Albumin Vitamin B12 Folate TSH Respiratory Panel [place] Adenovirus (Rapid PCR) B.pert (TEM-PCR) B.parapertussis DNA PCR C. pneumoniae DNA (PCR) Coronavirus OC43 (PCR) Coronavirus HKU1 (PCR) Coronavirus 229E (PCR) Coronavirus NL63 (PCR) Human Metapneumovir PCR Influenza A (RT-PCR) Influenza A (H1) PCR Influ A () PCR Influenza A (H3) PCR Influenza Type A (PCR) Influenza B (RT-PCR) Influenza Type B (PCR) M. pneumoniae (PCR) Parainfluenza 1 (PCR) Parainfluenza 2 (PCR) Parainfluenza 3 (PCR) Parainfluenza 4 (PCR) RSV (PCR) RSV RNA Qual (PCR) Entero/Rhino (PCR) SARS-CoV-2 RNA (RT-PCR) 05/07/25 05/07/25 05/07/25 11:34 11:34 11:34 WBC RBC Hgb Hct MCV MCH MCHC RDW Plt Count MPV Immature Gran % (Auto) Neut % (Auto) Lymph % (Auto) [place] % (Auto) Eos % (Auto) Cancelled Baso % (Auto) 1.1 Cancelled Lymph # (Auto) 0.7 L Cancelled [place] # (Auto) 0.7 Eos # (Auto) Baso # (Auto) Abs Immat Gran (auto) Absolute Neuts (auto) Absolute Nucleated RBC Nucleated RBC % (auto) ESR Sodium Potassium Chloride Carbon Dioxide Anion Gap BUN Creatinine Estim Creat Clear Calc Estimated GFR POC Glucose Random Glucose Calcium Magnesium Total Bilirubin AST ALT Alkaline Phosphatase Ammonia Total Creatine Kinase C-Reactive Protein Total Protein Albumin Vitamin B12 Folate TSH Respiratory Panel [place] Adenovirus (Rapid PCR) B.pert (TEM-PCR) B.parapertussis DNA PCR C. pneumoniae DNA (PCR) Coronavirus OC43 (PCR) Coronavirus HKU1 (PCR) Coronavirus 229E (PCR) Coronavirus NL63 (PCR) Human Metapneumovir PCR Influenza A (RT-PCR) Influenza A (H1) PCR Influ A (H1/09) PCR Influenza A (H3) PCR Influenza Type A (PCR) Influenza B (RT-PCR) Influenza Type B (PCR) M. pneumoniae (PCR) Parainfluenza 1 (PCR) Parainfluenza 2 (PCR) Parainfluenza 3 (PCR) Parainfluenza 4 (PCR) RSV (PCR) RSV RNA Qual (PCR) Entero/Rhino (PCR) SARS-CoV-2 RNA (RT-PCR) 05/07/25 05/07/25 05/07/25 11:34 11:34 11:34 WBC RBC Hgb Hct MCV MCH MCHC RDW Plt Count MPV Immature Gran % (Auto) Neut % (Auto) Lymph % (Auto) [place] % (Auto) Eos % (Auto) Baso % (Auto) Lymph # (Auto) [place] # (Auto) Cancelled Eos # (Auto) 0.2 Cancelled Baso # (Auto) 0.1 Cancelled Abs Immat Gran (auto) 0.04 H Absolute Neuts (auto) Absolute Nucleated RBC Nucleated RBC % (auto) ESR Sodium Potassium Chloride Carbon Dioxide Anion Gap BUN Creatinine Estim Creat Clear Calc Estimated GFR POC Glucose Random Glucose Calcium Magnesium Total Bilirubin AST ALT Alkaline Phosphatase Ammonia Total Creatine Kinase C-Reactive Protein Total Protein Albumin Vitamin B12 Folate TSH Respiratory Panel [place] Adenovirus (Rapid PCR) B.pert (TEM-PCR) B.parapertussis DNA PCR C. pneumoniae DNA (PCR) Coronavirus OC43 (PCR) Coronavirus HKU1 (PCR) Coronavirus 229E (PCR) Coronavirus NL63 (PCR) Human Metapneumovir PCR Influenza A (RT-PCR) Influenza A (H1) PCR Influ A () PCR Influenza A (H3) PCR Influenza Type A (PCR) Influenza B (RT-PCR) Influenza Type B (PCR) M. pneumoniae (PCR) Parainfluenza 1 (PCR) Parainfluenza 2 (PCR) Parainfluenza 3 (PCR) Parainfluenza 4 (PCR) RSV (PCR) RSV RNA Qual (PCR) Entero/Rhino (PCR) SARS-CoV-2 RNA (RT-PCR) 05/07/25 05/07/25 05/07/25 11:34 11:34 11:34 WBC RBC Hgb Hct MCV MCH MCHC RDW Plt Count MPV Immature Gran % (Auto) Neut % (Auto) Lymph % (Auto) [place] % (Auto) Eos % (Auto) Baso % (Auto) Lymph # (Auto) [place] # (Auto) Eos # (Auto) Baso # (Auto) Abs Immat Gran (auto) Cancelled Absolute Neuts (auto) 4.4 Cancelled Absolute Nucleated RBC 0.000 Cancelled Nucleated RBC % (auto) 0.0 ESR Sodium Potassium Chloride Carbon Dioxide Anion Gap BUN Creatinine Estim Creat Clear Calc Estimated GFR POC Glucose Random Glucose Calcium Magnesium Total Bilirubin AST ALT Alkaline Phosphatase Ammonia Total Creatine Kinase C-Reactive Protein Total Protein Albumin Vitamin B12 Folate TSH Respiratory Panel [place] Adenovirus (Rapid PCR) B.pert (TEM-PCR) B.parapertussis DNA PCR C. pneumoniae DNA (PCR) Coronavirus OC43 (PCR) Coronavirus HKU1 (PCR) Coronavirus 229E (PCR) Coronavirus NL63 (PCR) Human Metapneumovir PCR Influenza A (RT-PCR) Influenza A (H1) PCR Influ A () PCR Influenza A (H3) PCR Influenza Type A (PCR) Influenza B (RT-PCR) Influenza Type B (PCR) M. pneumoniae (PCR) Parainfluenza 1 (PCR) Parainfluenza 2 (PCR) Parainfluenza 3 (PCR) Parainfluenza 4 (PCR) RSV (PCR) RSV RNA Qual (PCR) Entero/Rhino (PCR) SARS-CoV-2 RNA (RT-PCR) 05/07/25 05/07/25 05/07/25 11:34 11:34 11:34 WBC RBC Hgb Hct MCV MCH MCHC RDW Plt Count MPV Immature Gran % (Auto) Neut % (Auto) Lymph % (Auto) [place] % (Auto) Eos % (Auto) Baso % (Auto) Lymph # (Auto) [place] # (Auto) Eos # (Auto) Baso # (Auto) Abs Immat Gran (auto) Absolute Neuts (auto) Absolute Nucleated RBC Nucleated RBC % (auto) Cancelled ESR Sodium 132 L 133 L Potassium 3.8 3.8 Chloride 104 Carbon Dioxide Anion Gap BUN Creatinine Estim Creat Clear Calc Estimated GFR POC Glucose Random Glucose Calcium Magnesium Total Bilirubin AST ALT Alkaline Phosphatase Ammonia Total Creatine Kinase C-Reactive Protein Total Protein Albumin Vitamin B12 Folate TSH Respiratory Panel [place] Adenovirus (Rapid PCR) B.pert (TEM-PCR) B.parapertussis DNA PCR C. pneumoniae DNA (PCR) Coronavirus OC43 (PCR) Coronavirus HKU1 (PCR) Coronavirus 229E (PCR) Coronavirus NL63 (PCR) Human Metapneumovir PCR Influenza A (RT-PCR) Influenza A (H1) PCR Influ A (H1/) PCR Influenza A (H3) PCR Influenza Type A (PCR) Influenza B (RT-PCR) Influenza Type B (PCR) M. pneumoniae (PCR) Parainfluenza 1 (PCR) Parainfluenza 2 (PCR) Parainfluenza 3 (PCR) Parainfluenza 4 (PCR) RSV (PCR) RSV RNA Qual (PCR) Entero/Rhino (PCR) SARS-CoV-2 RNA (RT-PCR) 05/07/25 05/07/25 05/07/25 11:34 11:34 11:34 WBC RBC Hgb Hct MCV MCH MCHC RDW Plt Count MPV Immature Gran % (Auto) Neut % (Auto) Lymph % (Auto) [place] % (Auto) Eos % (Auto) Baso % (Auto) Lymph # (Auto) [place] # (Auto) Eos # (Auto) Baso # (Auto) Abs Immat Gran (auto) Absolute Neuts (auto) Absolute Nucleated RBC Nucleated RBC % (auto) ESR Sodium Potassium Chloride 104 Carbon Dioxide 21 L 21 L Anion Gap 11 L 12 BUN 12 Creatinine Estim Creat Clear Calc Estimated GFR POC Glucose Random Glucose Calcium Magnesium Total Bilirubin AST ALT Alkaline Phosphatase Ammonia Total Creatine Kinase C-Reactive Protein Total Protein Albumin Vitamin B12 Folate TSH Respiratory Panel [place] Adenovirus (Rapid PCR) B.pert (TEM-PCR) B.parapertussis DNA PCR C. pneumoniae DNA (PCR) Coronavirus OC43 (PCR) Coronavirus HKU1 (PCR) Coronavirus 229E (PCR) Coronavirus NL63 (PCR) Human Metapneumovir PCR Influenza A (RT-PCR) Influenza A (H1) PCR Influ A (H1/09) PCR Influenza A (H3) PCR Influenza Type A (PCR) Influenza B (RT-PCR) Influenza Type B (PCR) M. pneumoniae (PCR) Parainfluenza 1 (PCR) Parainfluenza 2 (PCR) Parainfluenza 3 (PCR) Parainfluenza 4 (PCR) RSV (PCR) RSV RNA Qual (PCR) Entero/Rhino (PCR) SARS-CoV-2 RNA (RT-PCR) 05/07/25 05/07/25 05/07/25 11:34 11:34 11:34 WBC RBC Hgb Hct MCV MCH MCHC RDW Plt Count MPV Immature Gran % (Auto) Neut % (Auto) Lymph % (Auto) [place] % (Auto) Eos % (Auto) Baso % (Auto) Lymph # (Auto) [place] # (Auto) Eos # (Auto) Baso # (Auto) Abs Immat Gran (auto) Absolute Neuts (auto) Absolute Nucleated RBC Nucleated RBC % (auto) ESR Sodium Potassium Chloride Carbon Dioxide Anion Gap BUN 13 Creatinine 1.16 1.16 Estim Creat Clear Calc 80.2 80.2 Estimated GFR > 60 POC Glucose Random Glucose Calcium Magnesium Total Bilirubin AST ALT Alkaline Phosphatase Ammonia Total Creatine Kinase C-Reactive Protein Total Protein Albumin Vitamin B12 Folate TSH Respiratory Panel [place] Adenovirus (Rapid PCR) B.pert (TEM-PCR) B.parapertussis DNA PCR C. pneumoniae DNA (PCR) Coronavirus OC43 (PCR) Coronavirus HKU1 (PCR) Coronavirus 229E (PCR) Coronavirus NL63 (PCR) Human Metapneumovir PCR Influenza A (RT-PCR) Influenza A (H1) PCR Influ A () PCR Influenza A (H3) PCR Influenza Type A (PCR) Influenza B (RT-PCR) Influenza Type B (PCR) M. pneumoniae (PCR) Parainfluenza 1 (PCR) Parainfluenza 2 (PCR) Parainfluenza 3 (PCR) Parainfluenza 4 (PCR) RSV (PCR) RSV RNA Qual (PCR) Entero/Rhino (PCR) SARS-CoV-2 RNA (RT-PCR) 05/07/25 05/07/25 05/07/25 11:34 11:34 11:34 WBC RBC Hgb Hct MCV MCH MCHC RDW Plt Count MPV Immature Gran % (Auto) Neut % (Auto) Lymph % (Auto) [place] % (Auto) Eos % (Auto) Baso % (Auto) Lymph # (Auto) [place] # (Auto) Eos # (Auto) Baso # (Auto) Abs Immat Gran (auto) Absolute Neuts (auto) Absolute Nucleated RBC Nucleated RBC % (auto) ESR Sodium Potassium Chloride Carbon Dioxide Anion Gap BUN Creatinine Estim Creat Clear Calc Estimated GFR > 60 POC Glucose Random Glucose 92 93 Calcium 9.5 D 9.4 Magnesium Total Bilirubin 0.8 AST ALT Alkaline Phosphatase Ammonia Total Creatine Kinase C-Reactive Protein Total Protein Albumin Vitamin B12 Folate TSH Respiratory Panel [place] Adenovirus (Rapid PCR) B.pert (TEM-PCR) B.parapertussis DNA PCR C. pneumoniae DNA (PCR) Coronavirus OC43 (PCR) Coronavirus HKU1 (PCR) Coronavirus 229E (PCR) Coronavirus NL63 (PCR) Human Metapneumovir PCR Influenza A (RT-PCR) Influenza A (H1) PCR Influ A () PCR Influenza A (H3) PCR Influenza Type A (PCR) Influenza B (RT-PCR) Influenza Type B (PCR) M. pneumoniae (PCR) Parainfluenza 1 (PCR) Parainfluenza 2 (PCR) Parainfluenza 3 (PCR) Parainfluenza 4 (PCR) RSV (PCR) RSV RNA Qual (PCR) Entero/Rhino (PCR) SARS-CoV-2 RNA (RT-PCR) 05/07/25 05/07/25 05/07/25 11:34 11:34 11:34 WBC RBC Hgb Hct MCV MCH MCHC RDW Plt Count MPV Immature Gran % (Auto) Neut % (Auto) Lymph % (Auto) [place] % (Auto) Eos % (Auto) Baso % (Auto) Lymph # (Auto) [place] # (Auto) Eos # (Auto) Baso # (Auto) Abs Immat Gran (auto) Absolute Neuts (auto) Absolute Nucleated RBC Nucleated RBC % (auto) ESR Sodium Potassium Chloride Carbon Dioxide Anion Gap BUN Creatinine Estim Creat Clear Calc Estimated GFR POC Glucose Random Glucose Calcium Magnesium Total Bilirubin 0.8 AST 41 H 41 H ALT 43 H 43 H Alkaline Phosphatase 70 Ammonia Total Creatine Kinase C-Reactive Protein Total Protein Albumin Vitamin B12 Folate TSH Respiratory Panel [place] Adenovirus (Rapid PCR) B.pert (TEM-PCR) B.parapertussis DNA PCR C. pneumoniae DNA (PCR) Coronavirus OC43 (PCR) Coronavirus HKU1 (PCR) Coronavirus 229E (PCR) Coronavirus NL63 (PCR) Human Metapneumovir PCR Influenza A (RT-PCR) Influenza A (H1) PCR Influ A (H1/09) PCR Influenza A (H3) PCR Influenza Type A (PCR) Influenza B (RT-PCR) Influenza Type B (PCR) M. pneumoniae (PCR) Parainfluenza 1 (PCR) Parainfluenza 2 (PCR) Parainfluenza 3 (PCR) Parainfluenza 4 (PCR) RSV (PCR) RSV RNA Qual (PCR) Entero/Rhino (PCR) SARS-CoV-2 RNA (RT-PCR) 05/07/25 05/07/25 05/07/25 11:34 11:34 11:34 WBC RBC Hgb Hct MCV MCH MCHC RDW Plt Count MPV Immature Gran % (Auto) Neut % (Auto) Lymph % (Auto) [place] % (Auto) Eos % (Auto) Baso % (Auto) Lymph # (Auto) [place] # (Auto) Eos # (Auto) Baso # (Auto) Abs Immat Gran (auto) Absolute Neuts (auto) Absolute Nucleated RBC Nucleated RBC % (auto) ESR Sodium Potassium Chloride Carbon Dioxide Anion Gap BUN Creatinine Estim Creat Clear Calc Estimated GFR POC Glucose Random Glucose Calcium Magnesium Total Bilirubin AST ALT Alkaline Phosphatase 70 Ammonia Total Creatine Kinase C-Reactive Protein Total Protein 7.5 7.5 Albumin 4.7 4.7 Vitamin B12 Folate TSH Respiratory Panel [place] Adenovirus (Rapid PCR) B.pert (TEM-PCR) B.parapertussis DNA PCR C. pneumoniae DNA (PCR) Coronavirus OC43 (PCR) Coronavirus HKU1 (PCR) Coronavirus 229E (PCR) Coronavirus NL63 (PCR) Human Metapneumovir PCR Influenza A (RT-PCR) Influenza A (H1) PCR Influ A () PCR Influenza A (H3) PCR Influenza Type A (PCR) Influenza B (RT-PCR) Influenza Type B (PCR) M. pneumoniae (PCR) Parainfluenza 1 (PCR) Parainfluenza 2 (PCR) Parainfluenza 3 (PCR) Parainfluenza 4 (PCR) RSV (PCR) RSV RNA Qual (PCR) Entero/Rhino (PCR) SARS-CoV-2 RNA (RT-PCR) 05/07/25 05/07/25 12:37 16:46 WBC RBC Hgb Hct MCV MCH MCHC RDW Plt Count MPV Immature Gran % (Auto) Neut % (Auto) Lymph % (Auto) [place] % (Auto) Eos % (Auto) Baso % (Auto) Lymph # (Auto) [place] # (Auto) Eos # (Auto) Baso # (Auto) Abs Immat Gran (auto) Absolute Neuts (auto) Absolute Nucleated RBC Nucleated RBC % (auto) ESR 17 Sodium Potassium Chloride Carbon Dioxide Anion Gap BUN Creatinine Estim Creat Clear Calc Estimated GFR POC Glucose Random Glucose Calcium Magnesium 1.7 Total Bilirubin AST ALT Alkaline Phosphatase Ammonia 41 Total Creatine Kinase 85 C-Reactive Protein 7.40 H Total Protein Albumin Vitamin B12 413 Folate 17.0 TSH 1.15 Respiratory Panel [place] Adenovirus (Rapid PCR) B.pert (TEM-PCR) B.parapertussis DNA PCR C. pneumoniae DNA (PCR) Coronavirus OC43 (PCR) Coronavirus HKU1 (PCR) Coronavirus 229E (PCR) Coronavirus NL63 (PCR) Human Metapneumovir PCR Influenza A (RT-PCR) Influenza A (H1) PCR Influ A () PCR Influenza A (H3) PCR Influenza Type A (PCR) Influenza B (RT-PCR) Influenza Type B (PCR) M. pneumoniae (PCR) Parainfluenza 1 (PCR) Parainfluenza 2 (PCR) Parainfluenza 3 (PCR) Parainfluenza 4 (PCR) RSV (PCR) RSV RNA Qual (PCR) Entero/Rhino (PCR) SARS-CoV-2 RNA (RT-PCR) Imaging Radiology Impressions: ITS Impressions Ankle X-Ray 04/11/25 13:50 IMPRESSION: Status post tibiotalar arthroplasty. Degenerative changes as described. Electronically signed by: Jony Olivas MD 04/11/2025 01:59 PM EST RP Foot X-Ray 04/11/25 13:51 IMPRESSION: Status post tibiotalar arthroplasty. Degenerative changes as described. Electronically signed by: Jony Olivas MD 04/11/2025 01:59 PM EST RP Chest X-Ray 05/07/25 09:24 IMPRESSION: No acute airspace disease. Stable chest. Electronically signed by: Maynor Song MD 05/07/2025 09:37 AM EST RP Head CT 05/07/25 11:39 IMPRESSION: No acute intracranial abnormality. Electronically signed by: Emi Carrizales MD 05/07/2025 12:30 PM EST RP Femur X-Ray 05/07/25 12:48 IMPRESSION: No radiographic evidence of acute femoral fracture or dislocation. Clinically correlate. Additional/follow-up imaging as clinically indicated. Electronically signed by: Victor Manuel Hickey MD 05/07/2025 01:20 PM EST RP Hip/Pelvis X-Ray 05/07/25 12:48 IMPRESSION: No acute bony abnormality. Mild osteoarthritis, bilateral hips. Electronically signed by: Fredrick Weeks MD 05/07/2025 01:21 PM EST RP Tibia/Fibula X-Ray 05/07/25 12:48 IMPRESSION: No evidence of fracture of the right tibia or fibula. Electronically signed by: Jony Olivas MD 05/07/2025 01:19 PM EST RP Medications Medications Current Medications Acetaminophen (Acetaminophen 325 Mg Tablet) 650 mg PO Q6H PRN PRN Reason: Headache/Pain, Scale 1-10 Last Admin: 05/07/25 20:44 Dose: 650 mg Al Hydroxide/Mg Hydroxide (Magnesium Hydrox/Alum Hydrox 30 Ml Oral.Susp) 30 ml PO Q6H PRN PRN Reason: Heartburn/Nausea Amlodipine Besylate (Amlodipine Besylate 10 Mg Tablet) 10 mg PO DAILY [facility]; Protocol Last Admin: 05/08/25 09:02 Dose: 10 mg Atorvastatin Calcium (Atorvastatin Calcium 80 Mg Tablet) 80 mg PO BEDTIME PAYAM Last Admin: 05/07/25 20:44 Dose: 80 mg Benztropine Mesylate (Benztropine Mesylate 0.5 Mg Tablet) 0.5 mg PO BID PAYAM Last Admin: 05/08/25 09:03 Dose: 0.5 mg Clonidine HCl (Clonidine Hcl 0.1 Mg Tablet) 0.1 mg PO Q4H PRN; Protocol PRN Reason: severe anxiety Last Admin: 05/05/25 18:49 Dose: 0.1 mg Duloxetine HCl (Duloxetine Hcl 60 Mg Capsule.Dr) 60 mg PO BEDTIME PAYAM On Hold: 05/07/25 09:17 Last Admin: 05/06/25 22:24 Dose: 60 mg Ezetimibe (Ezetimibe 10 Mg Tablet) 10 mg PO DAILY [facility] Last Admin: 05/08/25 09:03 Dose: 10 mg Fenofibrate (Fenofibrate 160 Mg Tablet) 160 mg PO DAILY PAYAM Last Admin: 05/08/25 09:03 Dose: 160 mg Folic Acid (Folic Acid 1 Mg Tablet) 1 mg PO DAILY PAYAM Last Admin: 05/08/25 09:03 Dose: 1 mg Hydroxyzine HCl (Hydroxyzine Hcl 50 Mg Tablet) 50 mg PO Q6H PRN PRN Reason: mild anxiety Last Admin: 05/06/25 16:48 Dose: 50 mg Ibuprofen (Ibuprofen 800 Mg Tablet) 800 mg PO Q8H PRN PRN Reason: Headache/Pain, Scale 1-10 Last Admin: 05/06/25 16:48 Dose: 800 mg Lidocaine (Lidocaine 4 % Patch Adh..Patch) 0.5 patch TRANSDERMA DAILY PRN; Protocol PRN Reason: back pain Lurasidone HCl (Lurasidone Hcl 80 Mg Tablet) 80 mg PO 1700 PAYAM On Hold: 05/07/25 12:13 Last Admin: 05/06/25 16:48 Dose: 80 mg Magnesium Hydroxide (Milk Of Magnesia 30 Ml Oral.Susp) 30 ml PO DAILY PRN PRN Reason: Constipation Methocarbamol (Methocarbamol 500 Mg Tablet) 500 mg PO TID [facility] Last Admin: 05/08/25 09:03 Dose: 500 mg Modafinil (Modafinil 100 Mg Tablet) 100 mg PO DAILY [facility] On Hold: 05/07/25 12:14 Last Admin: 05/07/25 08:54 Dose: 100 mg Multivitamins/Vitamin C (Multivitamin Tablet) 1 tab PO DAILY [facility] Last Admin: 05/08/25 09:03 Dose: 1 tab Naloxone HCl (Naloxone Hcl 0.4 Mg/Ml Vial) 0.04 mg IVPUSH Q5M PRN PRN Reason: Excessive sedation or RR < 8 Naloxone HCl (Naloxone Hcl 0.4 Mg/Ml Vial) 0.04 mg IVPUSH Q5M PRN PRN Reason: Excessive sedation or RR < 8 Naltrexone HCl (Naltrexone Hcl 50 Mg Tablet) 50 mg PO DAILY [facility] Last Admin: 05/08/25 09:03 Dose: 50 mg Omeprazole (Omeprazole 20 Mg Capsule.Dr) 20 mg PO BEDTIME [facility] Last Admin: 05/07/25 20:44 Dose: 20 mg Quetiapine Fumarate (Quetiapine Fumarate 25 Mg Tablet) 25 mg PO TID PRN PRN Reason: breakthrough anxiety Last Admin: 05/05/25 20:28 Dose: 25 mg Thiamine HCl (Thiamine Hcl 100 Mg Tablet) 100 mg PO DAILY [facility] Last Admin: 05/08/25 09:03 Dose: 100 mg Topiramate (Topiramate 25 Mg Tablet) 50 mg PO BEDTIME [facility] Last Admin: 05/07/25 20:42 Dose: 50 mg Trazodone HCl (Trazodone Hcl 100 Mg Tablet) 100 mg PO BEDTIME [facility] Last Admin: 05/07/25 20:44 Dose: 100 mg Trazodone HCl (Trazodone Hcl 50 Mg Tablet) 50 mg PO BEDTIME PRN PRN Reason: Insomnia Last Admin: 04/21/25 21:48 Dose: 50 mg Allergies Allergies Allergy/AdvReac Type Severity Reaction Status Date / Time No Known Allergies Allergy Verified 04/01/25 12:28 Assessment & Plan Assessment & Plan (1) Major depressive disorder, recurrent severe without psychotic features: Status: Acute Code(s): F33.2 - Major depressive disorder, recurrent severe without psychotic features (2) Hypertriglyceridemia: Status: Acute Code(s): E78.1 - Pure hyperglyceridemia Assessment and Plan: Magnesium, B12, folate, ESR, CRP Plan Vital Signs - 24 hr 05/06/2520:00 05/07/2508:00 Temperature 98.1 F 99.0 F Pulse Rate 89 93 Blood Pressure 109/51 L 134/69 Pulse Oximetry 94 95 Oxygen Delivery Method Room Air BMI result Body Mass Index 36.3 Labs: Laboratory Results - last 48 hr 05/06/25 05/06/25 05/07/25 09:36 09:36 08:13 POC Glucose 113 Respiratory Panel [place] See Note Adenovirus (Rapid PCR) Not Detected B.pert (TEM-PCR) Not Detected B.parapertussis DNA PCR Not Detected C. pneumoniae DNA (PCR) Not Detected Coronavirus OC43 (PCR) Not Detected Coronavirus HKU1 (PCR) Not Detected Coronavirus 229E (PCR) Not Detected Coronavirus NL63 (PCR) Not Detected Human Metapneumovir PCR Not Detected Influenza A (RT-PCR) Not Detected Influenza A (H1) PCR Not Detected Influ A (H1/09) PCR Not Detected Influenza A (H3) PCR Detected A Influenza Type A (PCR) NEGATIVE Influenza B (RT-PCR) Not Detected Influenza Type B (PCR) NEGATIVE M. pneumoniae (PCR) Not Detected Parainfluenza 1 (PCR) Not Detected Parainfluenza 2 (PCR) Not Detected Parainfluenza 3 (PCR) Not Detected Parainfluenza 4 (PCR) Not Detected RSV (PCR) Not Detected RSV RNA Qual (PCR) NEGATIVE Entero/Rhino (PCR) Not Detected SARS-CoV-2 RNA (RT-PCR) NEGATIVE Not Detected Assessment & Plan Assessment & Plan (1) Major depressive disorder, recurrent severe without psychotic features: Status: Acute Code(s): F33.2 - Major depressive disorder, recurrent severe without psychotic features (2) Hypertriglyceridemia: Status: Acute Code(s): E78.1 - Pure hyperglyceridemia Plan PLAN: 64-year-old male with medical history of hypertension, type 2 diabetes, hyperlipidemia, compression fracture of L1, and psychiatric history of major depressive disorder, anxiety, and suicidal ideation, presented to [facility] on 04/01/2025 for worsening depression, SI, and a fall. Imaging were unrevealing. He was transferred to the ICU for treatment of metabolic syndrome. He endorsed SI before his discharge from the medical unit and therefore was transferred to yesterday. On interview with this provider, patient states that the reason for his psychiatric admission is suicide ideation and severe depression. He reports severe depression on/off, mostly on for the past several years. He feels hopeless, helpless, and worthless. He lacks interest to do things and has low energy. His symptoms are usually well controlled while on medication. However, he relapsed on drinking alcohol 3 weeks ago and stopped taking his psychotropic medications. He was drinking 5 or more nips daily. Prior to his recent relapse, he was sober for 2 years. He admits that his drinking may have worsened his depressive symptoms. He states that he stopped taking his medications because I didn't care anymore. He currently experiencing severe anxiety and depression. Regarding question about suicide ideation, he states that he does not have a plan, but if I went to sleep, I don't care if don't wake up. He denies hypomania or kaveh episodes. He denies HI/AVH. He reports severe left-sided low back pain which started after he fell the day before he presented to [facility]. CT abdomen/pelvis revealed acute to subacute superior endplate compression fracture at L1. His goal for this hospitalization is that I want to feel better about myself, and to get back on his medications. Formulation/Clinical reasoning: Patient has chronic anxiety and depression symptoms which worsened in the past 3 weeks when he stopped taking his psychotropic medications and relapsed on alcohol. His symptoms are well controlled on medications. Will continue current treatment regimen and make adjustment as needed. If he fails to respond to treatment, ECT may be ideal since it was effective in the past. Referred to addiction medicine. Lidocaine patch ordered and PT referral made for back pain. 04/10: Patient continues to be severely anxious and depressed. He also continues to experience intermittent left-sided low back pain. No SI/HI/AVH. Continue current treatment regimen. Encourage groups and to engage in physical therapy. Patient may receive inpatient ECT if he does not improve. Verbalized understanding and agreed with the plan. 04/11: Continue tx ECT consult Encourage milieu Right foot/ankle xrays 04/12 Patient says that his mood is better but he remains very anxious. Discussed options and patient agrees to trying Seroquel p.r.n. after reviewing risks/side effects of antipsychotics. 04/14: The depression is somewhat less. Anxiety is high Reports anergy as well I will do what I need to to feel better. Reviewed in team with Dr. May and Dr. Jacob. Dr. May met with pt and ECT will begin on 04/21. Denies SI,HI,AH,VH, SIBS Reports an increase of sleep and intact appetite. Pt asks to return to a regular diet as he reports poor choices on diabetic regime. Also asks that he not receive a safety tray. Intermittent group attendance Over the weekend Clonidine ordered prn along with Seroquel prn and Lidocaine Patch for pain. No new medical/diagnostic results. Plan: Provigil trial. 04/15: Pt reports Provigil has helped this a.m. Pt agrees to ECT trial and will attend milieu groups and will agree to CSS post discharge when ECT is completed. Today, discussed antidepressant trials. Identifies Venlafaxine as most helpful by history. Discussed this, along with Cymbalta with some benefits for pain mgt. Pt would like to trial Cymbalta. Attending groups this afternoon. Plan: Cymbalta 20 mg daily 04/16: Team reports pt slept last evening. He received medical clearance for ECT today Tolerating Cymbalta, Provigil. Will begin Lexapro tapering to 15 mg this evening Not attending groups Rates anxiety/depressive sx 8 today. 04/17/25: Meet with patient in assigned room, report no issues with appetite or sleep. Report anxiety an 8/10 and depression a 7/10. He eats breakfast in room. Denies alcohol craving. Report he went to a group yesterday. Denies SI/SIB/HI/AVH Per nursing, meds compliant, slept for 7 hours, compliant with meds, no side effect. mostly isolated to self in room. Constricted affect.Continue to encourage group participation. 04/18/25: Pt denies SI,HI,AH,VH He is attending some groups He is visable today in the milieu. He has informed his he as a fracture in his back and is unsure of tx plan. called pt's social sciences professor to clarify. This was diagnosed when pt was on medicine, having a abdominal diagnostic. On 04/01 abdominal films for pancreatitis were completed. Compression Fx found on L1. STR was suggested by PT when discharged with no further recs when transferred to M5. Nehemias Fuller of PT has been following pt on M5 with exercises, stretching and observation with ambulation. He will need OP PT upon DC. Pt is anxious, apprehensive regarding ECT, however believes this is the appropriate thing to do. Discussed Cymbalta titration to 30 mg and decrease of Escitalopram to 10 mg which he agrees with. 04/19/25: Met with patient in group room A where patient spent time after breakfast watching TV. Reports anxiety 7, and depression is 6/10. Reported that he went to 1 group yesterday. Per nursing, patient slept for 7 hours, compliant with medications. Denies side effects but reports some hand tremors which be from medication or from chronic alcohol abuse. We will continue to monitor. No SI/SIB/HI/AVH. Per ECT consult provider note: Patient has not had ongoing stability from depression for an extended period of time. 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 He did respond to a course of ECT in December and did speak with the patient at the only way that I would recommend another course of ECT at this time would be if the patient will willing to do aggressive treatment including possibility if residential sober home and show a commitment to sobriety otherwise his default appears to be to going back to drinking which also has involved not taking responsibility lack of honesty at times in what he is doing in unless he could commit to this that it would be very hard to achieve any stability. Patient appeared to understand this and patient wish strongly to go forward with ECT as he felt it had been quite helpful and agreed with the above provisions also discussed with the patient the ongoing in potentially severe medical consequences of his chronic alcohol use 04/20/25: Meet with patient in room where he is eating lunch. Report that he does not want to eat and be around with people. Denies sleeping or eating appetite uses. Continue report moderate to severe anxiety of a 7/10 and depression a 6/10. Denies SI/SIB/HI/AVH. Does not have alcohol craving at this moment. Flat/constricted affect. He is looking forward to having ECT tomorrow which he was told by his primary attending. Can observed him sometimes in dinning area but keep to self, not talk to anyone unless approach. Able to make needs known. Per nursing, patient slept for 8 hours, denies side effects from medications. Report to nursing staff with same anixety and depression level. Consistent with report. Continue with current plan. Nursing staff to prapare patient for ECT per protocol. 04/21/25: First ECT treatment today which was delayed until this afternoon. Got back from procedure, denies side effects. Denies [place] but feel a little bit tired. Report anxiety and depression as moderate. No behavior issues. Resting in bed after ECT. Encourage groups when able to/ tolerated. Denies SI/SIB/HI/AVH. Flat affect. Continue with current plan. Lipid profile: elevated. 04/22/25:Trever reports his first ECT went well and he is looking forward to continuing the series. No adverse effects reported from cross taper from Escitalopram to Duloxetine, will continue that this evening. Pt reports he is attending some groups, today, however, he is resting in bed (no groups currently occurring, however he does have a list on his bedside table). Denies SI, HI,AH, VH. Plan: Continue tx 04/23/25: ECT Treatment #2. Attending groups, Resting this afternoon, tired after the treatment. Denies SI,HI,AH,VH. I am trying . Team attempting to assist pt to be more engaged and active when in group. Continue tx. 04/24/25: Continue tx. 04/25/25: Continue tx. 04/26/25:Reviewed with team and reviewed plan of care. Team reports minimal improvement with ECT #3 Met with pt who appears brighter and who is up and about the unit this a.m. This afternoon, pt is in bed, reporting post ECT headache has not really resolved from 04/25, however, he feels the depression is decreasing. Ibuprofen ordered prn for headache. 04/28: Continue tx 05/02/25: ECT #6. Pt will continue treatments next week. is very upset-today has been caustic with team, with Matilde per their report. Call to who does not want pt to go to [facility] as she reports what she has read has not been appropriate reviews and she worries he will do poorly there and relapse. She reports she was told that drugs are sold at [facility]. We discussed that patients with both alcohol and substance addiction are treated there. Reviewed with the extensive efforts pt's social sciences professor, Thu has put into his treatment, bed searches and exploration of options for ongoing care. agrees that Thu has gone above and beyond, however, she continues to disagree with [facility]. She describes what has been read as frightening . Discussed parameters of pts current insurance and limited number of options. Encouraged her to contact [facility] to discuss options as pt will be making changes soon. Pt, post ECT denies SI,HI,AH,VH. He was informed he will not be going to [facility] and will have ECT on 05/05/25. 05/03Patient reports that he is good and looking forward to discharge; discussed how he is working with social work regarding a specific program. Says he plans to get ECT on Friday 05/04 remains doing well; ECT tomorrow 05/05 ECT #7. Slept eight hours Denies SI,HI,AH,VH Cymbalta dosing changed to HS looking at a program who has interest in pt in [place] 05/06/25: 05/06/25:Flu sx present with fever. Slept 8 hours Denies SI,HI,AH,VH +Depressive sx, +anergy, +fatigue, mild confusion. ECT will cancel for 05/07 due to flu/fever 05/07/25: Team reported this a.m. pt was confused, wandering, incoherent, falling with sx of dyskinesia and with word finding symptoms. Multiple diagnostics were completed. Pt was placed on one to one. Mild hyponatremia was found and fluid restriction of 1200 was suggested. Pt when we met is fatigued, oriented to person, place (he had not been oriented to place at different times during the day). He was in the kitchen for a time this afternoon watching TV. Team report an increase in confusion when taking him back to his room. Benztropine dose x 1 with moderate effect. This was scheduled as a result. Cymbalta, Provigil and Latuda are being held today. Hospitalist team has added more labs. MRI prescreen ordered as well. Reviewed all testing with pt's who reports at home, pt is on a high dose of prescribed [place] 3. She will bring this in so we may re-start it. Plan: Continue to monitor MRI prep Hospitalist team as ordered ESR,CRP, B12, Folate, TSH 05/08/25: Febrile this a.m. Sedate, sleeping. Improved this afternoon, MRI completed. Neurology consult requested. Some diagnostics continue pending. Will re-start Latuda 20 mg this evening and Cymbalta 20 mg on 05/09. Pt has no muscular stiffness, no cogwheeling on exam and reports no stiffness. Will continue benztropine Reason for continued inpatient stay Substantial Risk for: rapid decompensation and med/psych decompensation Time Spent With Patient Time: Total time managing care of this patient today ____ minutes.
[2025-05-08 14:26] LABS: Anion Gap 13 (12-20); Blood Urea Nitrogen 12 mg/dL (9-16); Calcium 8.8 mg/dL (8.4-10.2); Carbon Dioxide 21 mmol/L (22-29); Chloride 105 mmol/L (96-108); Creatinine Clr Calc Pharmacy 87.8; Estimated Glomerular Filt Rate > 60; Potassium 3.5 mmol/L (3.3-5.1); Sodium 135 mmol/L (135-145)
[2025-05-08 14:28] LABS: Appearance Urine Clear; Glucose Urine UA Negative (Negative); PH 5.5 (5.0-9.0); Specific Gravity - Urine 1.015 (1.005-1.025)
[2025-05-08 20:00] VITALS: BP 100/55; PULSE 97; TEMP 37.6; O2SAT 94
[2025-05-09 08:44] LABS: Cholesterol 133 mg/dL (<200); HDL Cholesterol 22 mg/dL (>40); Triglycerides 410 mg/dL (<150)
--- NOTE | 2025-05-09 08:46 | HO.PM.IMPN ---
Subjective Subjective Date of Service: 05/09/25 Interval History: Patient seen for follow up dyskinesia. On exam today patient with no involuntary movements. Reports that he is feeling better. No evidence of urine infection or electrolyte imbalances. Patient to be seen by Neurology. No evidence of dyskinesia on exam, resting in bed. His hypertriglyceridemia is improved. Denies any shortness of breath, dizziness, lightheadedness, difficulty voiding. Denies abdominal pain, nausea, vomiting or diarrhea. Review of Systems Patient has no acute medical complaints at this time All other systems are reviewed and are negative Physical Exam Exam: Exam: Alert and oriented X3, calm and cooperative. Answers questions. Neuro: CN II-X11 intact, no focal neurological deficits. Cardiac: S1 S2 RRR, No ectopy Pulmonary: lungs clear to auscultation, No increased WOB. Abdominal: BS active in all 4 quadrants, no guarding or tenderness MSK: Strength 5/5 upper and lower extremities : Deferred Extremities: No edema in lower extremities Psych: Mood stable, Quiet and cooperative. Skin: Warm and dry, Intact Vital Signs: Vital Signs: Last Vital Signs Temp 99.6 F 05/08/25 20:00 Pulse 97 05/08/25 20:00 Resp 16 05/08/25 08:00 BP 100/55 L 05/08/25 20:00 Pulse Ox 94 05/08/25 20:00 O2 Del Method Room Air 05/08/25 20:00 O2 Flow Rate 6 05/05/25 13:47 BMI result Body Mass Index 36.3 Objective Data Active Medications Acetaminophen (Acetaminophen 325 Mg Tablet) 650 mg PO Q6H PRN PRN Reason: Headache/Pain, Scale 1-10 Last Admin: 05/07/25 20:44 Dose: 650 mg Documented By: REMEDIOS Al Hydroxide/Mg Hydroxide (Magnesium Hydrox/Alum Hydrox 30 Ml Oral.Susp) 30 ml PO Q6H PRN PRN Reason: Heartburn/Nausea Amlodipine Besylate (Amlodipine Besylate 10 Mg Tablet) 10 mg PO DAILY [facility]; Protocol Last Admin: 05/08/25 09:02 Dose: 10 mg Documented By: TERRY Atorvastatin Calcium (Atorvastatin Calcium 80 Mg Tablet) 80 mg PO BEDTIME [facility] Last Admin: 05/08/25 21:41 Dose: 80 mg Documented By: JON Benztropine Mesylate (Benztropine Mesylate 0.5 Mg Tablet) 0.5 mg PO BID [facility] Last Admin: 05/08/25 21:41 Dose: 0.5 mg Documented By: JON Clonidine HCl (Clonidine Hcl 0.1 Mg Tablet) 0.1 mg PO Q4H PRN; Protocol PRN Reason: severe anxiety Last Admin: 05/05/25 18:49 Dose: 0.1 mg Documented By: SILVA Duloxetine HCl (Duloxetine Hcl 20 Mg Capsule.Dr) 20 mg PO DAILY [facility] Ezetimibe (Ezetimibe 10 Mg Tablet) 10 mg PO DAILY [facility] Last Admin: 05/08/25 09:03 Dose: 10 mg Documented By: TERRY Fenofibrate (Fenofibrate 160 Mg Tablet) 160 mg PO DAILY [facility] Last Admin: 05/08/25 09:03 Dose: 160 mg Documented By: TERRY Folic Acid (Folic Acid 1 Mg Tablet) 1 mg PO DAILY [facility] Last Admin: 05/08/25 09:03 Dose: 1 mg Documented By: TERRY Hydroxyzine HCl (Hydroxyzine Hcl 50 Mg Tablet) 50 mg PO Q6H PRN PRN Reason: mild anxiety Last Admin: 05/06/25 16:48 Dose: 50 mg Documented By: SILVA Ibuprofen (Ibuprofen 800 Mg Tablet) 800 mg PO Q8H PRN PRN Reason: Headache/Pain, Scale 1-10 Last Admin: 05/06/25 16:48 Dose: 800 mg Documented By: SILVA Lidocaine (Lidocaine 4 % Patch Adh..Patch) 0.5 patch TRANSDERMA DAILY PRN; Protocol PRN Reason: back pain Lurasidone HCl (Lurasidone Hcl 20 Mg Tablet) 20 mg PO 1700 [facility] Last Admin: 05/08/25 17:40 Dose: 20 mg Documented By: TERRY Magnesium Hydroxide (Milk Of Magnesia 30 Ml Oral.Susp) 30 ml PO DAILY PRN PRN Reason: Constipation Methocarbamol (Methocarbamol 500 Mg Tablet) 500 mg PO TID [facility] Last Admin: 05/08/25 21:41 Dose: 500 mg Documented By: JON Modafinil (Modafinil 100 Mg Tablet) 100 mg PO DAILY [facility] On Hold: 05/07/25 12:14 Last Admin: 05/07/25 08:54 Dose: 100 mg Documented By: TREV Multivitamins/Vitamin C (Multivitamin Tablet) 1 tab PO DAILY [facility] Last Admin: 05/08/25 09:03 Dose: 1 tab Documented By: TERRY Naloxone HCl (Naloxone Hcl 0.4 Mg/Ml Vial) 0.04 mg IVPUSH Q5M PRN PRN Reason: Excessive sedation or RR < 8 Naloxone HCl (Naloxone Hcl 0.4 Mg/Ml Vial) 0.04 mg IVPUSH Q5M PRN PRN Reason: Excessive sedation or RR < 8 Naltrexone HCl (Naltrexone Hcl 50 Mg Tablet) 50 mg PO DAILY [facility] Last Admin: 05/08/25 09:03 Dose: 50 mg Documented By: TERRY Omeprazole (Omeprazole 20 Mg Capsule.Dr) 20 mg PO BEDTIME [facility] Last Admin: 05/08/25 21:40 Dose: 20 mg Documented By: JON Quetiapine Fumarate (Quetiapine Fumarate 25 Mg Tablet) 25 mg PO TID PRN PRN Reason: breakthrough anxiety Last Admin: 05/05/25 20:28 Dose: 25 mg Documented By: RICHARD Thiamine HCl (Thiamine Hcl 100 Mg Tablet) 100 mg PO DAILY [facility] Last Admin: 05/08/25 09:03 Dose: 100 mg Documented By: TERRY Topiramate (Topiramate 25 Mg Tablet) 50 mg PO BEDTIME [facility] Last Admin: 05/08/25 21:42 Dose: 50 mg Documented By: JON Trazodone HCl (Trazodone Hcl 100 Mg Tablet) 100 mg PO BEDTIME [facility] Last Admin: 05/08/25 21:40 Dose: 100 mg Documented By: JON Trazodone HCl (Trazodone Hcl 50 Mg Tablet) 50 mg PO BEDTIME PRN PRN Reason: Insomnia Last Admin: 04/21/25 21:48 Dose: 50 mg Documented By: REGANEI Labs 05/07/25 11:34 05/08/25 13:48 Labs: Laboratory Results - last 24 hr 05/08/25 05/08/25 05/09/25 13:05 13:48 08:06 Hold Purple Top SEE NOTE Anion Gap 13 Estim Creat Clear Calc 87.8 Estimated GFR > 60 Random Glucose 158 H Calcium 8.8 D Triglycerides 410 H Cholesterol 133 LDL Cholesterol, Calc TNP HDL Cholesterol 22 L Urine Color Yellow Urine Appearance Clear Urine pH 5.5 Ur Specific [place] 1.015 Urine Protein Negative Urine Glucose (UA) Negative Urine Ketones Negative Urine Blood Negative Urine Nitrite Negative Ur Leukocyte Esterase Negative Microbiology Microbiology Results: Microbiology 05/07/25 15:18 Urine Culture - Final Urine clean catch - Clean Catch Midstream No growth. Assessment and Plan (1) Dyskinesia: Status: Acute Plan 64-year-old male with medical history as listed below admitted to for consideration of ECT treatment due to worsening depression. Patient has been undergoing ECT treatment, now being consulted due to new onset of dyskinesia. Depression/anxiety/EtOH use Undergoing ECT treatment- last treatment May 06, 2025 Thiamine/folic acid supplementation Dyskinesia-improved Patient CRP slightly elevated, ESR within normal limits. Not likely related to infection as patient is afebrile, benign physical exam. Likely related to FLU. TSH within normal limits, ammonia level within normal limits, triglycerides significantly improved. Magnesium within normal limits, slight elevation in sodium level. On [address] Head CT without any acute abnormalities, x-rays of his tib-fib, hip pelvis and femur status post fall were all negative. Chest x-ray negative without evidence of infection Patient had a normal KUB Folate and B12 levels within normal limits. Psychiatric medications on hold MRI head/brain pending UA negative, no electrolyte imbalances, lipid level improved.. Neurology consulted by psychiatric team. Hypertension/hyperlipidemia/History of hypertriglyceridemia Continue amlodipine, Zetia, and fenofibrate as well as atorvastatin. Followed by endocrinology Dr. Sotelo at [facility] [place]. Continue to encourage alcohol cessation. Triglycerides Improved to 410 Transaminitis Likely due to ETOH use. AST is improved to 41 and his ALT improved to 43. Trended downwards since admit. Type 2 diabetes A1c is 5.5 Patient will need to follow up with primary care doctor Continue diet exercise Thank you for allowing me to participate in the care of this patient. Please notify medical provider with any changes in condition or concerns. Quality Stroke Does the patient have a stroke diagnosis?: No VTE Prior VTE?: No VTE Risk Level:: Medical - low VTE Device Contraindication: Treatment Not Indicated VTE Drug Contraindication: Treatment Not Indicated
[2025-05-09 09:21] VITALS: BP 124/66; PULSE 96; RESP 20; TEMP 36.9; O2SAT 100
--- NOTE | 2025-05-09 09:59 | HO.PSYCHPN ---
Subjective Subjective Date of Service: 05/09/25 Reason For Visit: recurrent major depression, alcohol use disorder Subjective Notes: Conditional Voluntary Healthcare Proxy: No Guardianship: No Medical Problems Affecting Mental Status: No Interim History: Pt taken off one to one today and trialed on five minute checks. Appears improved- walking without difficulty, no muscle twitching. Alert, oriented. Slept well he reports. Feeling better with a decrease in flu sx. Seen by hospitalist team- no new abnormal results. To be seen by neurology post mri Medication Compliance: Yes Side effects from medications: No Attending Groups: No Review of Systems Acute medical concerns: No Medical Review of Systems: unchanged Review of Systems Review of Systems reports feeling improved, Temp 98.5 Mental Status Exam Mental Status Exam Patient Appearance: Fatigued Patient Orientation: Person, Place, Time and Situation Level of Consciousness: Alert Patient Behavior: Talkative Mood Description: Flat Affect Description: Flat Patient Cognition Impaired: No Ability to Follow Directions: Good Speech Pattern: Spontaneous Speech Memory Description: Episodic Impaired Hallucinations: None Delusions: Not Present Thought Process: Confusion (mild) Thought Content: positive for [place], positive for Circumstantial and positive for Suicidal Ideation (denies) Depressive Symptoms: Thoughts of /Suicide (denies) Judgement: Fair Diagnostics Vital Signs (24Hr): Vital Signs - 24 hr 05/08/25 20:00 05/09/25 09:21 Temperature 99.6 F 98.5 F Pulse Rate 97 96 Respiratory Rate 20 Blood Pressure 100/55 L 124/66 Pulse Oximetry 94 100 Oxygen Delivery Method Room Air Room Air BMI result Body Mass Index 36.3 Labs 05/07/25 11:34 05/08/25 13:48 Labs: Laboratory Results - last 48 hr 05/07/25 05/07/25 05/07/25 11:34 11:34 11:34 WBC 6.1 Cancelled RBC 4.83 Cancelled Hgb 14.4 Hct MCV MCH MCHC RDW Plt Count MPV Immature Gran % (Auto) Neut % (Auto) Lymph % (Auto) [place] % (Auto) Eos % (Auto) Baso % (Auto) Lymph # (Auto) [place] # (Auto) Eos # (Auto) Baso # (Auto) Abs Immat Gran (auto) Absolute Neuts (auto) Absolute Nucleated RBC Nucleated RBC % (auto) ESR Hold Purple Top Sodium Potassium Chloride Carbon Dioxide Anion Gap BUN Creatinine Estim Creat Clear Calc Estimated GFR Random Glucose Calcium Magnesium Total Bilirubin AST ALT Alkaline Phosphatase Ammonia Total Creatine Kinase C-Reactive Protein Total Protein Albumin Triglycerides Cholesterol LDL Cholesterol, Calc HDL Cholesterol Vitamin B12 Folate TSH Urine Color Urine Appearance Urine pH Ur Specific [place] Urine Protein Urine Glucose (UA) Urine Ketones Urine Blood Urine Nitrite Ur Leukocyte Esterase 05/07/25 05/07/25 05/07/25 11:34 11:34 11:34 WBC RBC Hgb Cancelled Hct 41.5 L Cancelled MCV 85.9 Cancelled MCH 29.8 MCHC RDW Plt Count MPV Immature Gran % (Auto) Neut % (Auto) Lymph % (Auto) [place] % (Auto) Eos % (Auto) Baso % (Auto) Lymph # (Auto) [place] # (Auto) Eos # (Auto) Baso # (Auto) Abs Immat Gran (auto) Absolute Neuts (auto) Absolute Nucleated RBC Nucleated RBC % (auto) ESR Hold Purple Top Sodium Potassium Chloride Carbon Dioxide Anion Gap BUN Creatinine Estim Creat Clear Calc Estimated GFR Random Glucose Calcium Magnesium Total Bilirubin AST ALT Alkaline Phosphatase Ammonia Total Creatine Kinase C-Reactive Protein Total Protein Albumin Triglycerides Cholesterol LDL Cholesterol, Calc HDL Cholesterol Vitamin B12 Folate TSH Urine Color Urine Appearance Urine pH Ur Specific [place] Urine Protein Urine Glucose (UA) Urine Ketones Urine Blood Urine Nitrite Ur Leukocyte Esterase 05/07/25 05/07/25 05/07/25 11:34 11:34 11:34 WBC RBC Hgb Hct MCV MCH Cancelled MCHC 34.7 Cancelled RDW 12.5 Cancelled Plt Count 232 MPV Immature Gran % (Auto) Neut % (Auto) Lymph % (Auto) [place] % (Auto) Eos % (Auto) Baso % (Auto) Lymph # (Auto) [place] # (Auto) Eos # (Auto) Baso # (Auto) Abs Immat Gran (auto) Absolute Neuts (auto) Absolute Nucleated RBC Nucleated RBC % (auto) ESR Hold Purple Top Sodium Potassium Chloride Carbon Dioxide Anion Gap BUN Creatinine Estim Creat Clear Calc Estimated GFR Random Glucose Calcium Magnesium Total Bilirubin AST ALT Alkaline Phosphatase Ammonia Total Creatine Kinase C-Reactive Protein Total Protein Albumin Triglycerides Cholesterol LDL Cholesterol, Calc HDL Cholesterol Vitamin B12 Folate TSH Urine Color Urine Appearance Urine pH Ur Specific [place] Urine Protein Urine Glucose (UA) Urine Ketones Urine Blood Urine Nitrite Ur Leukocyte Esterase 05/07/25 05/07/25 05/07/25 11:34 11:34 11:34 WBC RBC Hgb Hct MCV MCH MCHC RDW Plt Count Cancelled MPV 9.3 L Cancelled Immature Gran % (Auto) 0.7 H Cancelled Neut % (Auto) 71.4 Lymph % (Auto) [place] % (Auto) Eos % (Auto) Baso % (Auto) Lymph # (Auto) [place] # (Auto) Eos # (Auto) Baso # (Auto) Abs Immat Gran (auto) Absolute Neuts (auto) Absolute Nucleated RBC Nucleated RBC % (auto) ESR Hold Purple Top Sodium Potassium Chloride Carbon Dioxide Anion Gap BUN Creatinine Estim Creat Clear Calc Estimated GFR Random Glucose Calcium Magnesium Total Bilirubin AST ALT Alkaline Phosphatase Ammonia Total Creatine Kinase C-Reactive Protein Total Protein Albumin Triglycerides Cholesterol LDL Cholesterol, Calc HDL Cholesterol Vitamin B12 Folate TSH Urine Color Urine Appearance Urine pH Ur Specific [place] Urine Protein Urine Glucose (UA) Urine Ketones Urine Blood Urine Nitrite Ur Leukocyte Esterase 05/07/25 05/07/25 05/07/25 11:34 11:34 11:34 WBC RBC Hgb Hct MCV MCH MCHC RDW Plt Count MPV Immature Gran % (Auto) Neut % (Auto) Cancelled Lymph % (Auto) 11.6 L Cancelled [place] % (Auto) 11.3 H Cancelled Eos % (Auto) 3.9 Baso % (Auto) Lymph # (Auto) [place] # (Auto) Eos # (Auto) Baso # (Auto) Abs Immat Gran (auto) Absolute Neuts (auto) Absolute Nucleated RBC Nucleated RBC % (auto) ESR Hold Purple Top Sodium Potassium Chloride Carbon Dioxide Anion Gap BUN Creatinine Estim Creat Clear Calc Estimated GFR Random Glucose Calcium Magnesium Total Bilirubin AST ALT Alkaline Phosphatase Ammonia Total Creatine Kinase C-Reactive Protein Total Protein Albumin Triglycerides Cholesterol LDL Cholesterol, Calc HDL Cholesterol Vitamin B12 Folate TSH Urine Color Urine Appearance Urine pH Ur Specific [place] Urine Protein Urine Glucose (UA) Urine Ketones Urine Blood Urine Nitrite Ur Leukocyte Esterase 05/07/25 05/07/25 05/07/25 11:34 11:34 11:34 WBC RBC Hgb Hct MCV MCH MCHC RDW Plt Count MPV Immature Gran % (Auto) Neut % (Auto) Lymph % (Auto) [place] % (Auto) Eos % (Auto) Cancelled Baso % (Auto) 1.1 Cancelled Lymph # (Auto) 0.7 L Cancelled [place] # (Auto) 0.7 Eos # (Auto) Baso # (Auto) Abs Immat Gran (auto) Absolute Neuts (auto) Absolute Nucleated RBC Nucleated RBC % (auto) ESR Hold Purple Top Sodium Potassium Chloride Carbon Dioxide Anion Gap BUN Creatinine Estim Creat Clear Calc Estimated GFR Random Glucose Calcium Magnesium Total Bilirubin AST ALT Alkaline Phosphatase Ammonia Total Creatine Kinase C-Reactive Protein Total Protein Albumin Triglycerides Cholesterol LDL Cholesterol, Calc HDL Cholesterol Vitamin B12 Folate TSH Urine Color Urine Appearance Urine pH Ur Specific [place] Urine Protein Urine Glucose (UA) Urine Ketones Urine Blood Urine Nitrite Ur Leukocyte Esterase 05/07/25 05/07/25 05/07/25 11:34 11:34 11:34 WBC RBC Hgb Hct MCV MCH MCHC RDW Plt Count MPV Immature Gran % (Auto) Neut % (Auto) Lymph % (Auto) [place] % (Auto) Eos % (Auto) Baso % (Auto) Lymph # (Auto) [place] # (Auto) Cancelled Eos # (Auto) 0.2 Cancelled Baso # (Auto) 0.1 Cancelled Abs Immat Gran (auto) 0.04 H Absolute Neuts (auto) Absolute Nucleated RBC Nucleated RBC % (auto) ESR Hold Purple Top Sodium Potassium Chloride Carbon Dioxide Anion Gap BUN Creatinine Estim Creat Clear Calc Estimated GFR Random Glucose Calcium Magnesium Total Bilirubin AST ALT Alkaline Phosphatase Ammonia Total Creatine Kinase C-Reactive Protein Total Protein Albumin Triglycerides Cholesterol LDL Cholesterol, Calc HDL Cholesterol Vitamin B12 Folate TSH Urine Color Urine Appearance Urine pH Ur Specific [place] Urine Protein Urine Glucose (UA) Urine Ketones Urine Blood Urine Nitrite Ur Leukocyte Esterase 05/07/25 05/07/25 05/07/25 11:34 11:34 11:34 WBC RBC Hgb Hct MCV MCH MCHC RDW Plt Count MPV Immature Gran % (Auto) Neut % (Auto) Lymph % (Auto) [place] % (Auto) Eos % (Auto) Baso % (Auto) Lymph # (Auto) [place] # (Auto) Eos # (Auto) Baso # (Auto) Abs Immat Gran (auto) Cancelled Absolute Neuts (auto) 4.4 Cancelled Absolute Nucleated RBC 0.000 Cancelled Nucleated RBC % (auto) 0.0 ESR Hold Purple Top Sodium Potassium Chloride Carbon Dioxide Anion Gap BUN Creatinine Estim Creat Clear Calc Estimated GFR Random Glucose Calcium Magnesium Total Bilirubin AST ALT Alkaline Phosphatase Ammonia Total Creatine Kinase C-Reactive Protein Total Protein Albumin Triglycerides Cholesterol LDL Cholesterol, Calc HDL Cholesterol Vitamin B12 Folate TSH Urine Color Urine Appearance Urine pH Ur Specific [place] Urine Protein Urine Glucose (UA) Urine Ketones Urine Blood Urine Nitrite Ur Leukocyte Esterase 05/07/25 05/07/25 05/07/25 11:34 11:34 11:34 WBC RBC Hgb Hct MCV MCH MCHC RDW Plt Count MPV Immature Gran % (Auto) Neut % (Auto) Lymph % (Auto) [place] % (Auto) Eos % (Auto) Baso % (Auto) Lymph # (Auto) [place] # (Auto) Eos # (Auto) Baso # (Auto) Abs Immat Gran (auto) Absolute Neuts (auto) Absolute Nucleated RBC Nucleated RBC % (auto) Cancelled ESR Hold Purple Top Sodium 132 L 133 L Potassium 3.8 3.8 Chloride 104 Carbon Dioxide Anion Gap BUN Creatinine Estim Creat Clear Calc Estimated GFR Random Glucose Calcium Magnesium Total Bilirubin AST ALT Alkaline Phosphatase Ammonia Total Creatine Kinase C-Reactive Protein Total Protein Albumin Triglycerides Cholesterol LDL Cholesterol, Calc HDL Cholesterol Vitamin B12 Folate TSH Urine Color Urine Appearance Urine pH Ur Specific [place] Urine Protein Urine Glucose (UA) Urine Ketones Urine Blood Urine Nitrite Ur Leukocyte Esterase 05/07/25 05/07/25 05/07/25 11:34 11:34 11:34 WBC RBC Hgb Hct MCV MCH MCHC RDW Plt Count MPV Immature Gran % (Auto) Neut % (Auto) Lymph % (Auto) [place] % (Auto) Eos % (Auto) Baso % (Auto) Lymph # (Auto) [place] # (Auto) Eos # (Auto) Baso # (Auto) Abs Immat Gran (auto) Absolute Neuts (auto) Absolute Nucleated RBC Nucleated RBC % (auto) ESR Hold Purple Top Sodium Potassium Chloride 104 Carbon Dioxide 21 L 21 L Anion Gap 11 L 12 BUN 12 Creatinine Estim Creat Clear Calc Estimated GFR Random Glucose Calcium Magnesium Total Bilirubin AST ALT Alkaline Phosphatase Ammonia Total Creatine Kinase C-Reactive Protein Total Protein Albumin Triglycerides Cholesterol LDL Cholesterol, Calc HDL Cholesterol Vitamin B12 Folate TSH Urine Color Urine Appearance Urine pH Ur Specific [place] Urine Protein Urine Glucose (UA) Urine Ketones Urine Blood Urine Nitrite Ur Leukocyte Esterase 05/07/25 05/07/25 05/07/25 11:34 11:34 11:34 WBC RBC Hgb Hct MCV MCH MCHC RDW Plt Count MPV Immature Gran % (Auto) Neut % (Auto) Lymph % (Auto) [place] % (Auto) Eos % (Auto) Baso % (Auto) Lymph # (Auto) [place] # (Auto) Eos # (Auto) Baso # (Auto) Abs Immat Gran (auto) Absolute Neuts (auto) Absolute Nucleated RBC Nucleated RBC % (auto) ESR Hold Purple Top Sodium Potassium Chloride Carbon Dioxide Anion Gap BUN 13 Creatinine 1.16 1.16 Estim Creat Clear Calc 80.2 80.2 Estimated GFR > 60 Random Glucose Calcium Magnesium Total Bilirubin AST ALT Alkaline Phosphatase Ammonia Total Creatine Kinase C-Reactive Protein Total Protein Albumin Triglycerides Cholesterol LDL Cholesterol, Calc HDL Cholesterol Vitamin B12 Folate TSH Urine Color Urine Appearance Urine pH Ur Specific [place] Urine Protein Urine Glucose (UA) Urine Ketones Urine Blood Urine Nitrite Ur Leukocyte Esterase 05/07/25 05/07/25 05/07/25 11:34 11:34 11:34 WBC RBC Hgb Hct MCV MCH MCHC RDW Plt Count MPV Immature Gran % (Auto) Neut % (Auto) Lymph % (Auto) [place] % (Auto) Eos % (Auto) Baso % (Auto) Lymph # (Auto) [place] # (Auto) Eos # (Auto) Baso # (Auto) Abs Immat Gran (auto) Absolute Neuts (auto) Absolute Nucleated RBC Nucleated RBC % (auto) ESR Hold Purple Top Sodium Potassium Chloride Carbon Dioxide Anion Gap BUN Creatinine Estim Creat Clear Calc Estimated GFR > 60 Random Glucose 92 93 Calcium 9.5 D 9.4 Magnesium Total Bilirubin 0.8 AST ALT Alkaline Phosphatase Ammonia Total Creatine Kinase C-Reactive Protein Total Protein Albumin Triglycerides Cholesterol LDL Cholesterol, Calc HDL Cholesterol Vitamin B12 Folate TSH Urine Color Urine Appearance Urine pH Ur Specific [place] Urine Protein Urine Glucose (UA) Urine Ketones Urine Blood Urine Nitrite Ur Leukocyte Esterase 05/07/25 05/07/25 05/07/25 11:34 11:34 11:34 WBC RBC Hgb Hct MCV MCH MCHC RDW Plt Count MPV Immature Gran % (Auto) Neut % (Auto) Lymph % (Auto) [place] % (Auto) Eos % (Auto) Baso % (Auto) Lymph # (Auto) [place] # (Auto) Eos # (Auto) Baso # (Auto) Abs Immat Gran (auto) Absolute Neuts (auto) Absolute Nucleated RBC Nucleated RBC % (auto) ESR Hold Purple Top Sodium Potassium Chloride Carbon Dioxide Anion Gap BUN Creatinine Estim Creat Clear Calc Estimated GFR Random Glucose Calcium Magnesium Total Bilirubin 0.8 AST 41 H 41 H ALT 43 H 43 H Alkaline Phosphatase 70 Ammonia Total Creatine Kinase C-Reactive Protein Total Protein Albumin Triglycerides Cholesterol LDL Cholesterol, Calc HDL Cholesterol Vitamin B12 Folate TSH Urine Color Urine Appearance Urine pH Ur Specific [place] Urine Protein Urine Glucose (UA) Urine Ketones Urine Blood Urine Nitrite Ur Leukocyte Esterase 05/07/25 05/07/25 05/07/25 11:34 11:34 11:34 WBC RBC Hgb Hct MCV MCH MCHC RDW Plt Count MPV Immature Gran % (Auto) Neut % (Auto) Lymph % (Auto) [place] % (Auto) Eos % (Auto) Baso % (Auto) Lymph # (Auto) [place] # (Auto) Eos # (Auto) Baso # (Auto) Abs Immat Gran (auto) Absolute Neuts (auto) Absolute Nucleated RBC Nucleated RBC % (auto) ESR Hold Purple Top Sodium Potassium Chloride Carbon Dioxide Anion Gap BUN Creatinine Estim Creat Clear Calc Estimated GFR Random Glucose Calcium Magnesium Total Bilirubin AST ALT Alkaline Phosphatase 70 Ammonia Total Creatine Kinase C-Reactive Protein Total Protein 7.5 7.5 Albumin 4.7 4.7 Triglycerides Cholesterol LDL Cholesterol, Calc HDL Cholesterol Vitamin B12 Folate TSH Urine Color Urine Appearance Urine pH Ur Specific [place] Urine Protein Urine Glucose (UA) Urine Ketones Urine Blood Urine Nitrite Ur Leukocyte Esterase 05/07/25 05/07/25 05/08/25 12:37 16:46 13:05 WBC RBC Hgb Hct MCV MCH MCHC RDW Plt Count MPV Immature Gran % (Auto) Neut % (Auto) Lymph % (Auto) [place] % (Auto) Eos % (Auto) Baso % (Auto) Lymph # (Auto) [place] # (Auto) Eos # (Auto) Baso # (Auto) Abs Immat Gran (auto) Absolute Neuts (auto) Absolute Nucleated RBC Nucleated RBC % (auto) ESR 17 Hold Purple Top Sodium Potassium Chloride Carbon Dioxide Anion Gap BUN Creatinine Estim Creat Clear Calc Estimated GFR Random Glucose Calcium Magnesium 1.7 Total Bilirubin AST ALT Alkaline Phosphatase Ammonia 41 Total Creatine Kinase 85 C-Reactive Protein 7.40 H Total Protein Albumin Triglycerides Cholesterol LDL Cholesterol, Calc HDL Cholesterol Vitamin B12 413 Folate 17.0 TSH 1.15 Urine Color Yellow Urine Appearance Clear Urine pH 5.5 Ur Specific [place] 1.015 Urine Protein Negative Urine Glucose (UA) Negative Urine Ketones Negative Urine Blood Negative Urine Nitrite Negative Ur Leukocyte Esterase Negative 05/08/25 05/09/25 13:48 08:06 WBC RBC Hgb Hct MCV MCH MCHC RDW Plt Count MPV Immature Gran % (Auto) Neut % (Auto) Lymph % (Auto) [place] % (Auto) Eos % (Auto) Baso % (Auto) Lymph # (Auto) [place] # (Auto) Eos # (Auto) Baso # (Auto) Abs Immat Gran (auto) Absolute Neuts (auto) Absolute Nucleated RBC Nucleated RBC % (auto) ESR Hold Purple Top SEE NOTE Sodium 135 Potassium 3.5 Chloride 105 Carbon Dioxide 21 L Anion Gap 13 BUN 12 Creatinine 1.06 Estim Creat Clear Calc 87.8 Estimated GFR > 60 Random Glucose 158 H Calcium 8.8 D Magnesium Total Bilirubin AST ALT Alkaline Phosphatase Ammonia Total Creatine Kinase C-Reactive Protein Total Protein Albumin Triglycerides 410 H Cholesterol 133 LDL Cholesterol, Calc TNP HDL Cholesterol 22 L Vitamin B12 Folate TSH Urine Color Urine Appearance Urine pH Ur Specific [place] Urine Protein Urine Glucose (UA) Urine Ketones Urine Blood Urine Nitrite Ur Leukocyte Esterase Imaging Radiology Impressions: ITS Impressions Ankle X-Ray 04/11/25 13:50 IMPRESSION: Status post tibiotalar arthroplasty. Degenerative changes as described. Electronically signed by: Jony Olivas MD 04/11/2025 01:59 PM EST RP Foot X-Ray 04/11/25 13:51 IMPRESSION: Status post tibiotalar arthroplasty. Degenerative changes as described. Electronically signed by: Jony Olivas MD 04/11/2025 01:59 PM EST RP Chest X-Ray 05/07/25 09:24 IMPRESSION: No acute airspace disease. Stable chest. Electronically signed by: Maynor Song MD 05/07/2025 09:37 AM EST RP Head CT 05/07/25 11:39 IMPRESSION: No acute intracranial abnormality. Electronically signed by: Emi Carrizales MD 05/07/2025 12:30 PM EST RP Femur X-Ray 05/07/25 12:48 IMPRESSION: No radiographic evidence of acute femoral fracture or dislocation. Clinically correlate. Additional/follow-up imaging as clinically indicated. Electronically signed by: Victor Manuel Hickey MD 05/07/2025 01:20 PM EST RP Hip/Pelvis X-Ray 05/07/25 12:48 IMPRESSION: No acute bony abnormality. Mild osteoarthritis, bilateral hips. Electronically signed by: Fredrick Weeks MD 05/07/2025 01:21 PM EST RP Tibia/Fibula X-Ray 05/07/25 12:48 IMPRESSION: No evidence of fracture of the right tibia or fibula. Electronically signed by: Jony Olivas MD 05/07/2025 01:19 PM EST RP Brain MRI 05/08/25 14:50 IMPRESSION: No acute brain abnormality. Nonspecific white matter T2 FLAIR signal. Statistically matter present small vessel occlusive disease and less likely demyelinating process. Global cerebral atrophy, bifrontal temporal lobes, mild. 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 Electronically signed by: Maynor Song MD 05/08/2025 03:35 PM EST RP Medications Medications Current Medications Acetaminophen (Acetaminophen 325 Mg Tablet) 650 mg PO Q6H PRN PRN Reason: Headache/Pain, Scale 1-10 Last Admin: 05/07/25 20:44 Dose: 650 mg Al Hydroxide/Mg Hydroxide (Magnesium Hydrox/Alum Hydrox 30 Ml Oral.Susp) 30 ml PO Q6H PRN PRN Reason: Heartburn/Nausea Amlodipine Besylate (Amlodipine Besylate 10 Mg Tablet) 10 mg PO DAILY [facility]; Protocol Last Admin: 05/09/25 09:24 Dose: 10 mg Atorvastatin Calcium (Atorvastatin Calcium 80 Mg Tablet) 80 mg PO BEDTIME PAYAM Last Admin: 05/08/25 21:41 Dose: 80 mg Benztropine Mesylate (Benztropine Mesylate 0.5 Mg Tablet) 0.5 mg PO BID [facility] Last Admin: 05/09/25 09:23 Dose: 0.5 mg Clonidine HCl (Clonidine Hcl 0.1 Mg Tablet) 0.1 mg PO Q4H PRN; Protocol PRN Reason: severe anxiety Last Admin: 05/05/25 18:49 Dose: 0.1 mg Duloxetine HCl (Duloxetine Hcl 20 Mg Capsule.Dr) 20 mg PO DAILY [facility] Last Admin: 05/09/25 09:24 Dose: 20 mg Ezetimibe (Ezetimibe 10 Mg Tablet) 10 mg PO DAILY [facility] Last Admin: 05/09/25 09:24 Dose: 10 mg Fenofibrate (Fenofibrate 160 Mg Tablet) 160 mg PO DAILY [facility] Last Admin: 05/09/25 09:22 Dose: 160 mg Folic Acid (Folic Acid 1 Mg Tablet) 1 mg PO DAILY [facility] Last Admin: 05/09/25 09:24 Dose: 1 mg Hydroxyzine HCl (Hydroxyzine Hcl 50 Mg Tablet) 50 mg PO Q6H PRN PRN Reason: mild anxiety Last Admin: 05/06/25 16:48 Dose: 50 mg Ibuprofen (Ibuprofen 800 Mg Tablet) 800 mg PO Q8H PRN PRN Reason: Headache/Pain, Scale 1-10 Last Admin: 05/06/25 16:48 Dose: 800 mg Lidocaine (Lidocaine 4 % Patch Adh..Patch) 0.5 patch TRANSDERMA DAILY PRN; Protocol PRN Reason: back pain Lurasidone HCl (Lurasidone Hcl 20 Mg Tablet) 20 mg PO 1700 [facility] Last Admin: 05/08/25 17:40 Dose: 20 mg Magnesium Hydroxide (Milk Of Magnesia 30 Ml Oral.Susp) 30 ml PO DAILY PRN PRN Reason: Constipation Methocarbamol (Methocarbamol 500 Mg Tablet) 500 mg PO TID [facility] Last Admin: 05/09/25 09:23 Dose: 500 mg Modafinil (Modafinil 100 Mg Tablet) 100 mg PO DAILY [facility] On Hold: 05/07/25 12:14 Last Admin: 05/07/25 08:54 Dose: 100 mg Multivitamins/Vitamin C (Multivitamin Tablet) 1 tab PO DAILY [facility] Last Admin: 05/09/25 09:24 Dose: 1 tab Naloxone HCl (Naloxone Hcl 0.4 Mg/Ml Vial) 0.04 mg IVPUSH Q5M PRN PRN Reason: Excessive sedation or RR < 8 Naloxone HCl (Naloxone Hcl 0.4 Mg/Ml Vial) 0.04 mg IVPUSH Q5M PRN PRN Reason: Excessive sedation or RR < 8 Naltrexone HCl (Naltrexone Hcl 50 Mg Tablet) 50 mg PO DAILY [facility] Last Admin: 05/09/25 09:23 Dose: 50 mg Omeprazole (Omeprazole 20 Mg Capsule.Dr) 20 mg PO BEDTIME [facility] Last Admin: 05/08/25 21:40 Dose: 20 mg Quetiapine Fumarate (Quetiapine Fumarate 25 Mg Tablet) 25 mg PO TID PRN PRN Reason: breakthrough anxiety Last Admin: 05/05/25 20:28 Dose: 25 mg Thiamine HCl (Thiamine Hcl 100 Mg Tablet) 100 mg PO DAILY PAYAM Last Admin: 05/09/25 09:23 Dose: 100 mg Topiramate (Topiramate 25 Mg Tablet) 50 mg PO BEDTIME PAYAM Last Admin: 05/08/25 21:42 Dose: 50 mg Trazodone HCl (Trazodone Hcl 100 Mg Tablet) 100 mg PO BEDTIME PAYAM Last Admin: 05/08/25 21:40 Dose: 100 mg Trazodone HCl (Trazodone Hcl 50 Mg Tablet) 50 mg PO BEDTIME PRN PRN Reason: Insomnia Last Admin: 04/21/25 21:48 Dose: 50 mg Allergies Allergies Allergy/AdvReac Type Severity Reaction Status Date / Time No Known Allergies Allergy Verified 04/01/25 12:28 Assessment & Plan Assessment & Plan (1) Major depressive disorder, recurrent severe without psychotic features: Status: Acute Code(s): F33.2 - Major depressive disorder, recurrent severe without psychotic features (2) Hypertriglyceridemia: Status: Acute Code(s): E78.1 - Pure hyperglyceridemia Assessment and Plan: Magnesium, B12, folate, ESR, CRP Plan Vital Signs - 24 hr 05/06/2520:00 05/07/2508:00 Temperature 98.1 F 99.0 F Pulse Rate 89 93 Blood Pressure 109/51 L 134/69 Pulse Oximetry 94 95 Oxygen Delivery Method Room Air BMI result Body Mass Index 36.3 Labs: Laboratory Results - last 48 hr 05/06/25 05/06/25 05/07/25 09:36 09:36 08:13 POC Glucose 113 Respiratory Panel [place] See Note Adenovirus (Rapid PCR) Not Detected B.pert (TEM-PCR) Not Detected B.parapertussis DNA PCR Not Detected C. pneumoniae DNA (PCR) Not Detected Coronavirus OC43 (PCR) Not Detected Coronavirus HKU1 (PCR) Not Detected Coronavirus 229E (PCR) Not Detected Coronavirus NL63 (PCR) Not Detected Human Metapneumovir PCR Not Detected Influenza A (RT-PCR) Not Detected Influenza A (H1) PCR Not Detected Influ A (H1/09) PCR Not Detected Influenza A (H3) PCR Detected A Influenza Type A (PCR) NEGATIVE Influenza B (RT-PCR) Not Detected Influenza Type B (PCR) NEGATIVE M. pneumoniae (PCR) Not Detected Parainfluenza 1 (PCR) Not Detected Parainfluenza 2 (PCR) Not Detected Parainfluenza 3 (PCR) Not Detected Parainfluenza 4 (PCR) Not Detected RSV (PCR) Not Detected RSV RNA Qual (PCR) NEGATIVE Entero/Rhino (PCR) Not Detected SARS-CoV-2 RNA (RT-PCR) NEGATIVE Not Detected Assessment & Plan Assessment & Plan (1) Major depressive disorder, recurrent severe without psychotic features: Status: Acute Code(s): F33.2 - Major depressive disorder, recurrent severe without psychotic features (2) Hypertriglyceridemia: Status: Acute Code(s): E78.1 - Pure hyperglyceridemia Plan PLAN: 64-year-old male with medical history of hypertension, type 2 diabetes, hyperlipidemia, compression fracture of L1, and psychiatric history of major depressive disorder, anxiety, and suicidal ideation, presented to [facility] ED on 04/01/2025 for worsening depression, SI, and a fall. Imaging were unrevealing. He was transferred to the ICU for treatment of metabolic syndrome. He endorsed SI before his discharge from the medical unit and therefore was transferred to yesterday. On interview with this provider, patient states that the reason for his psychiatric admission is suicide ideation and severe depression. He reports severe depression on/off, mostly on for the past several years. He feels hopeless, helpless, and worthless. He lacks interest to do things and has low energy. His symptoms are usually well controlled while on medication. However, he relapsed on drinking alcohol 3 weeks ago and stopped taking his psychotropic medications. He was drinking 5 or more nips daily. Prior to his recent relapse, he was sober for 2 years. He admits that his drinking may have worsened his depressive symptoms. He states that he stopped taking his medications because I didn't care anymore. He currently experiencing severe anxiety and depression. Regarding question about suicide ideation, he states that he does not have a plan, but if I went to sleep, I don't care if don't wake up. He denies hypomania or kaveh episodes. He denies HI/AVH. He reports severe left-sided low back pain which started after he fell the day before he presented to [facility] ED. CT abdomen/pelvis revealed acute to subacute superior endplate compression fracture at L1. His goal for this hospitalization is that I want to feel better about myself, and to get back on his medications. Formulation/Clinical reasoning: Patient has chronic anxiety and depression symptoms which worsened in the past 3 weeks when he stopped taking his psychotropic medications and relapsed on alcohol. His symptoms are well controlled on medications. Will continue current treatment regimen and make adjustment as needed. If he fails to respond to treatment, ECT may be ideal since it was effective in the past. Referred to addiction medicine. Lidocaine patch ordered and PT referral made for back pain. 04/10: Patient continues to be severely anxious and depressed. He also continues to experience intermittent left-sided low back pain. No SI/HI/AVH. Continue current treatment regimen. Encourage groups and to engage in physical therapy. Patient may receive inpatient ECT if he does not improve. Verbalized understanding and agreed with the plan. 04/11: Continue tx ECT consult Encourage milieu Right foot/ankle xrays 04/12 Patient says that his mood is better but he remains very anxious. Discussed options and patient agrees to trying Seroquel p.r.n. after reviewing risks/side effects of antipsychotics. 04/14: The depression is somewhat less. Anxiety is high Reports anergy as well I will do what I need to to feel better. Reviewed in team with Dr. May and Dr. Jacob. Dr. May met with pt and ECT will begin on 04/21. Denies SI,HI,AH,VH, SIBS Reports an increase of sleep and intact appetite. Pt asks to return to a regular diet as he reports poor choices on diabetic regime. Also asks that he not receive a safety tray. Intermittent group attendance Over the weekend Clonidine ordered prn along with Seroquel prn and Lidocaine Patch for pain. No new medical/diagnostic results. Plan: Provigil trial. 04/15: Pt reports Provigil has helped this a.m. Pt agrees to ECT trial and will attend milieu groups and will agree to CSS post discharge when ECT is completed. Today, discussed antidepressant trials. Identifies Venlafaxine as most helpful by history. Discussed this, along with Cymbalta with some benefits for pain mgt. Pt would like to trial Cymbalta. Attending groups this afternoon. Plan: Cymbalta 20 mg daily 04/16: Team reports pt slept last evening. He received medical clearance for ECT today Tolerating Cymbalta, Provigil. Will begin Lexapro tapering to 15 mg this evening Not attending groups Rates anxiety/depressive sx 8 today. 04/17/25: Meet with patient in assigned room, report no issues with appetite or sleep. Report anxiety an 8/10 and depression a 7/10. He eats breakfast in room. Denies alcohol craving. Report he went to a group yesterday. Denies SI/SIB/HI/AVH Per nursing, meds compliant, slept for 7 hours, compliant with meds, no side effect. mostly isolated to self in room. Constricted affect.Continue to encourage group participation. 04/18/25: Pt denies SI,HI,AH,VH He is attending some groups He is visable today in the milieu. He has informed his he as a fracture in his back and is unsure of tx plan. called pt's sr. social media & mobile manager to clarify. This was diagnosed when pt was on medicine, having a abdominal diagnostic. On 04/01 abdominal films for pancreatitis were completed. Compression Fx found on L1. STR was suggested by PT when discharged with no further recs when transferred to M5. Nehemias Fuller of PT has been following pt on M5 with exercises, stretching and observation with ambulation. He will need OP PT upon DC. Pt is anxious, apprehensive regarding ECT, however believes this is the appropriate thing to do. Discussed Cymbalta titration to 30 mg and decrease of Escitalopram to 10 mg which he agrees with. 04/19/25: Met with patient in group room A where patient spent time after breakfast watching TV. Reports anxiety 7, and depression is 6/10. Reported that he went to 1 group yesterday. Per nursing, patient slept for 7 hours, compliant with medications. Denies side effects but reports some hand tremors which be from medication or from chronic alcohol abuse. We will continue to monitor. No SI/SIB/HI/AVH. Per ECT consult provider note: Patient has not had ongoing stability from depression for an extended period of time. 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 He did respond to a course of ECT in December and did speak with the patient at the only way that I would recommend another course of ECT at this time would be if the patient will willing to do aggressive treatment including possibility if residential sober home and show a commitment to sobriety otherwise his default appears to be to going back to drinking which also has involved not taking responsibility lack of honesty at times in what he is doing in unless he could commit to this that it would be very hard to achieve any stability. Patient appeared to understand this and patient wish strongly to go forward with ECT as he felt it had been quite helpful and agreed with the above provisions also discussed with the patient the ongoing in potentially severe medical consequences of his chronic alcohol use 04/20/25: Meet with patient in room where he is eating lunch. Report that he does not want to eat and be around with people. Denies sleeping or eating appetite uses. Continue report moderate to severe anxiety of a 7/10 and depression a 6/10. Denies SI/SIB/HI/AVH. Does not have alcohol craving at this moment. Flat/constricted affect. He is looking forward to having ECT tomorrow which he was told by his primary attending. Can observed him sometimes in dinning area but keep to self, not talk to anyone unless approach. Able to make needs known. Per nursing, patient slept for 8 hours, denies side effects from medications. Report to nursing staff with same anixety and depression level. Consistent with report. Continue with current plan. Nursing staff to prapare patient for ECT per protocol. 04/21/25: First ECT treatment today which was delayed until this afternoon. Got back from procedure, denies side effects. Denies BRAX[place] but feel a little bit tired. Report anxiety and depression as moderate. No behavior issues. Resting in bed after ECT. Encourage groups when able to/ tolerated. Denies SI/SIB/HI/AVH. Flat affect. Continue with current plan. Lipid profile: elevated. 04/22/25:Trever reports his first ECT went well and he is looking forward to continuing the series. No adverse effects reported from cross taper from Escitalopram to Duloxetine, will continue that this evening. Pt reports he is attending some groups, today, however, he is resting in bed (no groups currently occurring, however he does have a list on his bedside table). Denies SI, HI,AH, VH. Plan: Continue tx 04/23/25: ECT Treatment #2. Attending groups, Resting this afternoon, tired after the treatment. Denies SI,HI,AH,VH. I am trying . Team attempting to assist pt to be more engaged and active when in group. Continue tx. 04/24/25: Continue tx. 04/25/25: Continue tx. 04/26/25:Reviewed with team and reviewed plan of care. Team reports minimal improvement with ECT #3 Met with pt who appears brighter and who is up and about the unit this a.m. This afternoon, pt is in bed, reporting post ECT headache has not really resolved from 04/25, however, he feels the depression is decreasing. Ibuprofen ordered prn for headache. 04/28: Continue tx 05/02/25: ECT #6. Pt will continue treatments next week. is very upset-today has been caustic with team, with Matilde per their report. Call to who does not want pt to go to [facility] as she reports what she has read has not been appropriate reviews and she worries he will do poorly there and relapse. She reports she was told that drugs are sold at [facility]. We discussed that patients with both alcohol and substance addiction are treated there. Reviewed with the extensive efforts pt's sr. social media & mobile manager, Thu has put into his treatment, bed searches and exploration of options for ongoing care. agrees that Thu has gone above and beyond, however, she continues to disagree with [facility]. She describes what has been read as frightening . Discussed parameters of pts current insurance and limited number of options. Encouraged her to contact [facility] to discuss options as pt will be making changes soon. Pt, post ECT denies SI,HI,AH,VH. He was informed he will not be going to [facility] and will have ECT on 05/05/25. 05/03Patient reports that he is good and looking forward to discharge; discussed how he is working with social work regarding a specific program. Says he plans to get ECT on Friday 05/04 remains doing well; ECT tomorrow 05/05 ECT #7. Slept eight hours Denies SI,HI,AH,VH Cymbalta dosing changed to HS looking at a program who has interest in pt in [place] 05/06/25: 05/06/25:Flu sx present with fever. Slept 8 hours Denies SI,HI,AH,VH +Depressive sx, +anergy, +fatigue, mild confusion. ECT will cancel for 12/17 due to flu/fever 05/07/25: Team reported this a.m. pt was confused, wandering, incoherent, falling with sx of dyskinesia and with word finding symptoms. Multiple diagnostics were completed. Pt was placed on one to one. Mild hyponatremia was found and fluid restriction of 1200 was suggested. Pt when we met is fatigued, oriented to person, place (he had not been oriented to place at different times during the day). He was in the kitchen for a time this afternoon watching TV. Team report an increase in confusion when taking him back to his room. Benztropine dose x 1 with moderate effect. This was scheduled as a result. Cymbalta, Provigil and Latuda are being held today. Hospitalist team has added more labs. MRI prescreen ordered as well. Reviewed all testing with pt's who reports at home, pt is on a high dose of prescribed [place] 3. She will bring this in so we may re-start it. Plan: Continue to monitor MRI prep Hospitalist team as ordered ESR,CRP, B12, Folate, TSH 05/08/25: Febrile this a.m. Sedate, sleeping. Improved this afternoon, MRI completed. Neurology consult requested. Some diagnostics continue pending. Will re-start Latuda 20 mg this evening and Cymbalta 20 mg on 05/09. Pt has no muscular stiffness, no cogwheeling on exam and reports no stiffness. Will continue benztropine. 05/09: Pt taken off one to one today and trialed on five minute checks. Appears improved- walking without difficulty, no muscle twitching. Alert, oriented. Slept well he reports. Feeling better with a decrease in flu sx. Seen by hospitalist team- no new abnormal results. To be seen by neurology post mri Reason for continued inpatient stay Substantial Risk for: rapid decompensation and med/psych decompensation Time Spent With Patient Time: Total time managing care of this patient today ____ minutes.
[2025-05-09 21:30] VITALS: BP 122/76; PULSE 84; RESP 16; TEMP 37.9; O2SAT 96
[2025-05-10 08:00] VITALS: BP 118/97; PULSE 87; RESP 18; TEMP 36.6; O2SAT 99
[2025-05-10 09:09] VITALS: BP 118/98
--- NOTE | 2025-05-10 15:15 | HO.PSYCHPN ---
Subjective Subjective Date of Service: 05/10/25 Reason For Visit: recurrent major depression, alcohol use disorder Interim History: Laying in bed. Patient reports feeling okay today; pt stated, I'm just trying to rest. I'm feeling a little better from being sick . He reports sleeping well last night. denies SI/HI/VH/AH. Continue tx plan. Medication Compliance: Yes Side effects from medications: No Mental Status Exam Mental Status Exam Patient Appearance: Appropriate Patient Orientation: Person, Place, Time and Situation Level of Consciousness: Awake Patient Behavior: Appropriate, Cooperative and Good Eye Contact Mood Description: Calm Affect Description: Calm Ability to Follow Directions: Good Speech Pattern: Clear Memory Description: Intact Hallucinations: None Delusions: Not Present Thought Process: Intact Thought Content: positive for Intact Diagnostics Vital Signs (24Hr): Vital Signs - 24 hr 05/09/25 21:30 05/10/25 08:00 05/10/25 09:09 Temperature 100.2 F 97.8 F Pulse Rate 84 87 Respiratory Rate 16 18 Blood Pressure 122/76 118/97 H 118/98 H Pulse Oximetry 96 99 Oxygen Delivery Method Room Air Room Air BMI result Body Mass Index 36.3 Labs 05/07/25 11:34 05/08/25 13:48 Labs: Laboratory Results - last 48 hr 05/09/25 08:06 Triglycerides 410 H Cholesterol 133 LDL Cholesterol, Calc TNP HDL Cholesterol 22 L Imaging Radiology Impressions: ITS Impressions Ankle X-Ray 04/11/25 13:50 IMPRESSION: Status post tibiotalar arthroplasty. Degenerative changes as described. Electronically signed by: Jony Olivas MD 04/11/2025 01:59 PM EST RP Foot X-Ray 04/11/25 13:51 IMPRESSION: Status post tibiotalar arthroplasty. Degenerative changes as described. Electronically signed by: Jony Olivas MD 04/11/2025 01:59 PM EST RP Chest X-Ray 05/07/25 09:24 IMPRESSION: No acute airspace disease. Stable chest. Electronically signed by: Maynor Song MD 05/07/2025 09:37 AM EST RP Head CT 05/07/25 11:39 IMPRESSION: No acute intracranial abnormality. Electronically signed by: Emi Carrizales MD 05/07/2025 12:30 PM EST RP Femur X-Ray 05/07/25 12:48 IMPRESSION: No radiographic evidence of acute femoral fracture or dislocation. Clinically correlate. Additional/follow-up imaging as clinically indicated. Electronically signed by: Victor Manuel Hickey MD 05/07/2025 01:20 PM EST RP Hip/Pelvis X-Ray 05/07/25 12:48 IMPRESSION: No acute bony abnormality. Mild osteoarthritis, bilateral hips. Electronically signed by: Fredrick Weeks MD 05/07/2025 01:21 PM EST RP Tibia/Fibula X-Ray 05/07/25 12:48 IMPRESSION: No evidence of fracture of the right tibia or fibula. Electronically signed by: Jony Olivas MD 05/07/2025 01:19 PM EST RP Brain MRI 05/08/25 14:50 IMPRESSION: No acute brain abnormality. Nonspecific white matter T2 FLAIR signal. Statistically matter present small vessel occlusive disease and less likely demyelinating process. Global cerebral atrophy, bifrontal temporal lobes, mild. 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 Electronically signed by: Maynor Song MD 05/08/2025 03:35 PM EST RP Medications Medications Current Medications Acetaminophen (Acetaminophen 325 Mg Tablet) 650 mg PO Q6H PRN PRN Reason: Headache/Pain, Scale 1-10 Last Admin: 05/07/25 20:44 Dose: 650 mg Al Hydroxide/Mg Hydroxide (Magnesium Hydrox/Alum Hydrox 30 Ml Oral.Susp) 30 ml PO Q6H PRN PRN Reason: Heartburn/Nausea Amlodipine Besylate (Amlodipine Besylate 10 Mg Tablet) 10 mg PO DAILY PAYAM; Protocol Last Admin: 05/10/25 09:09 Dose: 10 mg Atorvastatin Calcium (Atorvastatin Calcium 80 Mg Tablet) 80 mg PO BEDTIME PAYAM Last Admin: 05/09/25 21:17 Dose: 80 mg Benztropine Mesylate (Benztropine Mesylate 0.5 Mg Tablet) 0.5 mg PO BID PAYAM Last Admin: 05/10/25 09:09 Dose: 0.5 mg Clonidine HCl (Clonidine Hcl 0.1 Mg Tablet) 0.1 mg PO Q4H PRN; Protocol PRN Reason: severe anxiety Last Admin: 05/05/25 18:49 Dose: 0.1 mg Duloxetine HCl (Duloxetine Hcl 20 Mg Capsule.Dr) 20 mg PO DAILY [facility] Last Admin: 05/10/25 09:08 Dose: 20 mg Ezetimibe (Ezetimibe 10 Mg Tablet) 10 mg PO DAILY [facility] Last Admin: 05/10/25 09:08 Dose: 10 mg Fenofibrate (Fenofibrate 160 Mg Tablet) 160 mg PO DAILY [facility] Last Admin: 05/10/25 09:08 Dose: 160 mg Folic Acid (Folic Acid 1 Mg Tablet) 1 mg PO DAILY [facility] Last Admin: 05/10/25 09:08 Dose: 1 mg Hydroxyzine HCl (Hydroxyzine Hcl 50 Mg Tablet) 50 mg PO Q6H PRN PRN Reason: mild anxiety Last Admin: 05/06/25 16:48 Dose: 50 mg Ibuprofen (Ibuprofen 800 Mg Tablet) 800 mg PO Q8H PRN PRN Reason: Headache/Pain, Scale 1-10 Last Admin: 05/06/25 16:48 Dose: 800 mg Lidocaine (Lidocaine 4 % Patch Adh..Patch) 0.5 patch TRANSDERMA DAILY PRN; Protocol PRN Reason: back pain Lurasidone HCl (Lurasidone Hcl 20 Mg Tablet) 20 mg PO 1700 [facility] Last Admin: 05/09/25 17:53 Dose: 20 mg Magnesium Hydroxide (Milk Of Magnesia 30 Ml Oral.Susp) 30 ml PO DAILY PRN PRN Reason: Constipation Methocarbamol (Methocarbamol 500 Mg Tablet) 500 mg PO TID [facility] Last Admin: 05/10/25 14:45 Dose: 500 mg Modafinil (Modafinil 100 Mg Tablet) 100 mg PO DAILY [facility] On Hold: 05/07/25 12:14 Last Admin: 05/07/25 08:54 Dose: 100 mg Multivitamins/Vitamin C (Multivitamin Tablet) 1 tab PO DAILY [facility] Last Admin: 05/10/25 09:08 Dose: 1 tab Naloxone HCl (Naloxone Hcl 0.4 Mg/Ml Vial) 0.04 mg IVPUSH Q5M PRN PRN Reason: Excessive sedation or RR < 8 Naloxone HCl (Naloxone Hcl 0.4 Mg/Ml Vial) 0.04 mg IVPUSH Q5M PRN PRN Reason: Excessive sedation or RR < 8 Naltrexone HCl (Naltrexone Hcl 50 Mg Tablet) 50 mg PO DAILY [facility] Last Admin: 05/10/25 09:08 Dose: 50 mg Omeprazole (Omeprazole 20 Mg Capsule.Dr) 20 mg PO BEDTIME [facility] Last Admin: 05/09/25 21:17 Dose: 20 mg Quetiapine Fumarate (Quetiapine Fumarate 25 Mg Tablet) 25 mg PO TID PRN PRN Reason: breakthrough anxiety Last Admin: 05/05/25 20:28 Dose: 25 mg Thiamine HCl (Thiamine Hcl 100 Mg Tablet) 100 mg PO DAILY [facility] Last Admin: 05/10/25 09:09 Dose: 100 mg Topiramate (Topiramate 25 Mg Tablet) 50 mg PO BEDTIME [facility] Last Admin: 05/09/25 21:16 Dose: 50 mg Trazodone HCl (Trazodone Hcl 100 Mg Tablet) 100 mg PO BEDTIME [facility] Last Admin: 05/09/25 21:17 Dose: 100 mg Trazodone HCl (Trazodone Hcl 50 Mg Tablet) 50 mg PO BEDTIME PRN PRN Reason: Insomnia Last Admin: 04/21/25 21:48 Dose: 50 mg Allergies Allergies Allergy/AdvReac Type Severity Reaction Status Date / Time No Known Allergies Allergy Verified 04/01/25 12:28 Assessment & Plan Assessment & Plan (1) Major depressive disorder, recurrent severe without psychotic features: Status: Acute Code(s): F33.2 - Major depressive disorder, recurrent severe without psychotic features (2) Hypertriglyceridemia: Status: Acute Code(s): E78.1 - Pure hyperglyceridemia Assessment and Plan: Magnesium, B12, folate, ESR, CRP Plan Vital Signs - 24 hr 05/06/2520:00 05/07/2508:00 Temperature 98.1 F 99.0 F Pulse Rate 89 93 Blood Pressure 109/51 L 134/69 Pulse Oximetry 94 95 Oxygen Delivery Method Room Air BMI result Body Mass Index 36.3 Labs: Laboratory Results - last 48 hr 05/06/25 05/06/25 05/07/25 09:36 09:36 08:13 POC Glucose 113 Respiratory Panel [place] See Note Adenovirus (Rapid PCR) Not Detected B.pert (TEM-PCR) Not Detected B.parapertussis DNA PCR Not Detected C. pneumoniae DNA (PCR) Not Detected Coronavirus OC43 (PCR) Not Detected Coronavirus HKU1 (PCR) Not Detected Coronavirus 229E (PCR) Not Detected Coronavirus NL63 (PCR) Not Detected Human Metapneumovir PCR Not Detected Influenza A (RT-PCR) Not Detected Influenza A (H1) PCR Not Detected Influ A (H1/09) PCR Not Detected Influenza A (H3) PCR Detected A Influenza Type A (PCR) NEGATIVE Influenza B (RT-PCR) Not Detected Influenza Type B (PCR) NEGATIVE M. pneumoniae (PCR) Not Detected Parainfluenza 1 (PCR) Not Detected Parainfluenza 2 (PCR) Not Detected Parainfluenza 3 (PCR) Not Detected Parainfluenza 4 (PCR) Not Detected RSV (PCR) Not Detected RSV RNA Qual (PCR) NEGATIVE Entero/Rhino (PCR) Not Detected SARS-CoV-2 RNA (RT-PCR) NEGATIVE Not Detected Assessment & Plan Assessment & Plan (1) Major depressive disorder, recurrent severe without psychotic features: Status: Acute Code(s): F33.2 - Major depressive disorder, recurrent severe without psychotic features (2) Hypertriglyceridemia: Status: Acute Code(s): E78.1 - Pure hyperglyceridemia Plan PLAN: 64-year-old male with medical history of hypertension, type 2 diabetes, hyperlipidemia, compression fracture of L1, and psychiatric history of major depressive disorder, anxiety, and suicidal ideation, presented to [facility] on 04/01/2025 for worsening depression, SI, and a fall. Imaging were unrevealing. He was transferred to the ICU for treatment of metabolic syndrome. He endorsed SI before his discharge from the medical unit and therefore was transferred to yesterday. On interview with this provider, patient states that the reason for his psychiatric admission is suicide ideation and severe depression. He reports severe depression on/off, mostly on for the past several years. He feels hopeless, helpless, and worthless. He lacks interest to do things and has low energy. His symptoms are usually well controlled while on medication. However, he relapsed on drinking alcohol 3 weeks ago and stopped taking his psychotropic medications. He was drinking 5 or more nips daily. Prior to his recent relapse, he was sober for 2 years. He admits that his drinking may have worsened his depressive symptoms. He states that he stopped taking his medications because I didn't care anymore. He currently experiencing severe anxiety and depression. Regarding question about suicide ideation, he states that he does not have a plan, but if I went to sleep, I don't care if don't wake up. He denies hypomania or kaveh episodes. He denies HI/AVH. He reports severe left-sided low back pain which started after he fell the day before he presented to [facility]. CT abdomen/pelvis revealed acute to subacute superior endplate compression fracture at L1. His goal for this hospitalization is that I want to feel better about myself, and to get back on his medications. Formulation/Clinical reasoning: Patient has chronic anxiety and depression symptoms which worsened in the past 3 weeks when he stopped taking his psychotropic medications and relapsed on alcohol. His symptoms are well controlled on medications. Will continue current treatment regimen and make adjustment as needed. If he fails to respond to treatment, ECT may be ideal since it was effective in the past. Referred to addiction medicine. Lidocaine patch ordered and PT referral made for back pain. 04/10: Patient continues to be severely anxious and depressed. He also continues to experience intermittent left-sided low back pain. No SI/HI/AVH. Continue current treatment regimen. Encourage groups and to engage in physical therapy. Patient may receive inpatient ECT if he does not improve. Verbalized understanding and agreed with the plan. 04/11: Continue tx ECT consult Encourage milieu Right foot/ankle xrays 04/12 Patient says that his mood is better but he remains very anxious. Discussed options and patient agrees to trying Seroquel p.r.n. after reviewing risks/side effects of antipsychotics. 04/14: The depression is somewhat less. Anxiety is high Reports anergy as well I will do what I need to to feel better. Reviewed in team with Dr. May and Dr. Jacob. Dr. May met with pt and ECT will begin on 04/21. Denies SI,HI,AH,VH, SIBS Reports an increase of sleep and intact appetite. Pt asks to return to a regular diet as he reports poor choices on diabetic regime. Also asks that he not receive a safety tray. Intermittent group attendance Over the weekend Clonidine ordered prn along with Seroquel prn and Lidocaine Patch for pain. No new medical/diagnostic results. Plan: Provigil trial. 04/15: Pt reports Provigil has helped this a.m. Pt agrees to ECT trial and will attend milieu groups and will agree to CSS post discharge when ECT is completed. Today, discussed antidepressant trials. Identifies Venlafaxine as most helpful by history. Discussed this, along with Cymbalta with some benefits for pain mgt. Pt would like to trial Cymbalta. Attending groups this afternoon. Plan: Cymbalta 20 mg daily 04/16: Team reports pt slept last evening. He received medical clearance for ECT today Tolerating Cymbalta, Provigil. Will begin Lexapro tapering to 15 mg this evening Not attending groups Rates anxiety/depressive sx 8 today. 04/17/25: Meet with patient in assigned room, report no issues with appetite or sleep. Report anxiety an 8/10 and depression a 7/10. He eats breakfast in room. Denies alcohol craving. Report he went to a group yesterday. Denies SI/SIB/HI/AVH Per nursing, meds compliant, slept for 7 hours, compliant with meds, no side effect. mostly isolated to self in room. Constricted affect.Continue to encourage group participation. 04/18/25: Pt denies SI,HI,AH,VH He is attending some groups He is visable today in the milieu. He has informed his he as a fracture in his back and is unsure of tx plan. called pt's home health care social worker to clarify. This was diagnosed when pt was on medicine, having a abdominal diagnostic. On 04/01 abdominal films for pancreatitis were completed. Compression Fx found on L1. STR was suggested by PT when discharged with no further recs when transferred to . Nehemias Fuller of PT has been following pt on M5 with exercises, stretching and observation with ambulation. He will need OP PT upon DC. Pt is anxious, apprehensive regarding ECT, however believes this is the appropriate thing to do. Discussed Cymbalta titration to 30 mg and decrease of Escitalopram to 10 mg which he agrees with. 04/19/25: Met with patient in group room A where patient spent time after breakfast watching TV. Reports anxiety 7, and depression is 6/10. Reported that he went to 1 group yesterday. Per nursing, patient slept for 7 hours, compliant with medications. Denies side effects but reports some hand tremors which be from medication or from chronic alcohol abuse. We will continue to monitor. No SI/SIB/HI/AVH. Per ECT consult provider note: Patient has not had ongoing stability from depression for an extended period of time. 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 He did respond to a course of ECT in December and did speak with the patient at the only way that I would recommend another course of ECT at this time would be if the patient will willing to do aggressive treatment including possibility if residential sober home and show a commitment to sobriety otherwise his default appears to be to going back to drinking which also has involved not taking responsibility lack of honesty at times in what he is doing in unless he could commit to this that it would be very hard to achieve any stability. Patient appeared to understand this and patient wish strongly to go forward with ECT as he felt it had been quite helpful and agreed with the above provisions also discussed with the patient the ongoing in potentially severe medical consequences of his chronic alcohol use 04/20/25: Meet with patient in room where he is eating lunch. Report that he does not want to eat and be around with people. Denies sleeping or eating appetite uses. Continue report moderate to severe anxiety of a 7/10 and depression a 6/10. Denies SI/SIB/HI/AVH. Does not have alcohol craving at this moment. Flat/constricted affect. He is looking forward to having ECT tomorrow which he was told by his primary attending. Can observed him sometimes in dinning area but keep to self, not talk to anyone unless approach. Able to make needs known. Per nursing, patient slept for 8 hours, denies side effects from medications. Report to nursing staff with same anixety and depression level. Consistent with report. Continue with current plan. Nursing staff to prapare patient for ECT per protocol. 04/21/25: First ECT treatment today which was delayed until this afternoon. Got back from procedure, denies side effects. Denies [place] but feel a little bit tired. Report anxiety and depression as moderate. No behavior issues. Resting in bed after ECT. Encourage groups when able to/ tolerated. Denies SI/SIB/HI/AVH. Flat affect. Continue with current plan. Lipid profile: elevated. 04/22/25:Trever reports his first ECT went well and he is looking forward to continuing the series. No adverse effects reported from cross taper from Escitalopram to Duloxetine, will continue that this evening. Pt reports he is attending some groups, today, however, he is resting in bed (no groups currently occurring, however he does have a list on his bedside table). Denies SI, HI,AH, VH. Plan: Continue tx 04/23/25: ECT Treatment #2. Attending groups, Resting this afternoon, tired after the treatment. Denies SI,HI,AH,VH. I am trying . Team attempting to assist pt to be more engaged and active when in group. Continue tx. 04/24/25: Continue tx. 04/25/25: Continue tx. 04/26/25:Reviewed with team and reviewed plan of care. Team reports minimal improvement with ECT #3 Met with pt who appears brighter and who is up and about the unit this a.m. This afternoon, pt is in bed, reporting post ECT headache has not really resolved from 04/25, however, he feels the depression is decreasing. Ibuprofen ordered prn for headache. 04/28: Continue tx 05/02/25: ECT #6. Pt will continue treatments next week. is very upset-today has been caustic with team, with Matilde per their report. Call to who does not want pt to go to [facility] as she reports what she has read has not been appropriate reviews and she worries he will do poorly there and relapse. She reports she was told that drugs are sold at [facility]. We discussed that patients with both alcohol and substance addiction are treated there. Reviewed with the extensive efforts pt's home health care social worker, Thu has put into his treatment, bed searches and exploration of options for ongoing care. agrees that Thu has gone above and beyond, however, she continues to disagree with [facility]. She describes what has been read as frightening . Discussed parameters of pts current insurance and limited number of options. Encouraged her to contact [facility] to discuss options as pt will be making changes soon. Pt, post ECT denies SI,HI,AH,VH. He was informed he will not be going to [facility] and will have ECT on 05/05/25. 05/03Patient reports that he is good and looking forward to discharge; discussed how he is working with social work regarding a specific program. Says he plans to get ECT on Friday 05/04 remains doing well; ECT tomorrow 05/05 ECT #7. Slept eight hours Denies SI,HI,AH,VH Cymbalta dosing changed to HS looking at a program who has interest in pt in [place] 05/06/25: 05/06/25:Flu sx present with fever. Slept 8 hours Denies SI,HI,AH,VH +Depressive sx, +anergy, +fatigue, mild confusion. ECT will cancel for 05/07 due to flu/fever 05/07/25: Team reported this a.m. pt was confused, wandering, incoherent, falling with sx of dyskinesia and with word finding symptoms. Multiple diagnostics were completed. Pt was placed on one to one. Mild hyponatremia was found and fluid restriction of 1200 was suggested. Pt when we met is fatigued, oriented to person, place (he had not been oriented to place at different times during the day). He was in the kitchen for a time this afternoon watching TV. Team report an increase in confusion when taking him back to his room. Benztropine dose x 1 with moderate effect. This was scheduled as a result. Cymbalta, Provigil and Latuda are being held today. Hospitalist team has added more labs. MRI prescreen ordered as well. Reviewed all testing with pt's who reports at home, pt is on a high dose of prescribed [place] 3. She will bring this in so we may re-start it. Plan: Continue to monitor MRI prep Hospitalist team as ordered ESR,CRP, B12, Folate, TSH 05/08/25: Febrile this a.m. Sedate, sleeping. Improved this afternoon, MRI completed. Neurology consult requested. Some diagnostics continue pending. Will re-start Latuda 20 mg this evening and Cymbalta 20 mg on 05/09. Pt has no muscular stiffness, no cogwheeling on exam and reports no stiffness. Will continue benztropine. 05/09: Pt taken off one to one today and trialed on five minute checks. Appears improved- walking without difficulty, no muscle twitching. Alert, oriented. Slept well he reports. Feeling better with a decrease in flu sx. Seen by hospitalist team- no new abnormal results. To be seen by neurology post mri 05/10: Continue tx plan. Patient educated on: diagnosis and medication risk/benefits Reason for continued inpatient stay Substantial Risk for: med/psych decompensation Time Spent With Patient Time: Total time managing care of this patient today _15___ minutes.
--- NOTE | 2025-05-10 16:11 | P.CNNE_ITS ---
History of Present Illness Data of Consult Service Date: 05/10/25 Primary Care Provider: Unknown Physician HPI Reason for consult: AMS post ECT This is a 64-year-old male with h/o hypertension, type 2 diabetes, hyperlipidemia, compression fracture of L1, and psychiatric history of major depressive disorder, anxiety, and suicidal ideation, presented to [facility] ED on 04/01/2025 for worsening depression, SI, and a fall. Imaging were unrevealing. He was transferred to the ICU for treatment of metabolic syndrome. He was transferred to CT for severe depression with suicidal intent. He reports severe depression on/off, mostly on for the past several years. He feels hopeless, helpless, and worthless. He lacks interest to do things and has low energy. His symptoms are usually well controlled while on medication. However, he relapsed on drinking alcohol 3 weeks ago and stopped taking his psychotropic medications. He was drinking 5 or more nips daily. Prior to his recent relapse, he was sober for 2 years. He admits that his drinking may have worsened his depressive symptoms. He had ECT treatment on 05/05/2025 and the following day he was noted to be somewhat confused with some dyskinetic movements word-finding difficulties which have gradually improved and he seems to be back to his baseline. At the same time he had developed some flu-like symptoms which have also resolved. He had an MRI of the brain which showed a [id number] global atrophy and nonspecific white matter microvascular changes from hypertension. He had an EEG which showed diffuse slowing with a bifrontal delta with some paroxysmal features which is not uncommon following ECT treatments. PMFSH Past Medical History Medical History (Updated 05/10/25 @ 16:17 by Dionicio Mo MD) Alcohol use disorder Alcoholic liver disease Major depressive disorder, recurrent severe without psychotic features Hypertriglyceridemia Fracture of nasal bone Fatigue Social History Social History Household Members: Spouse Housing: House Do you presently have visiting nurse or other home services: No Alcohol intake: current Alcohol intake frequency: 3 or more drinks per day Alcohol type: hard liquor Comment: PT Consult ordered Patient Tobacco Use Status: Never used Tobacco Currently Displaying Signs/Symptoms of Drug Intoxication Withdrawal: No Have you been hit, kicked, punched, or otherwise hurt by someone within the past year? If so, by whom?: No Do you feel safe in your current relationship?: Yes Is there a partner from a previous relationship who is making you feel unsafe now?: No Are you made to feel afraid or neglected: No Spiritual Healthcare Practices: Buddhist Are you DNR?: No Advance Directives: Yes Advance Directives Information Provided: No Advance Directives on File: Yes Advance Directives Date on File: 04/02/25 Do you have thoughts of harming others: None Do you have a plan to hurt others: No Plan Recently lost weight without trying: No Eating poorly because of decreased appetite: No Nutrition Risks: No Nutritional Risk Poor oral hygiene: No service: No Sexual orientation: Straight/Heterosexual Meds Allergies Allergy/AdvReac Type Severity Reaction Status Date / Time No Known Allergies Allergy Verified 04/01/25 12:28 Active Medications: Current Medications Acetaminophen (Acetaminophen 325 Mg Tablet) 650 mg PO Q6H PRN PRN Reason: Headache/Pain, Scale 1-10 Last Admin: 05/07/25 20:44 Dose: 650 mg Al Hydroxide/Mg Hydroxide (Magnesium Hydrox/Alum Hydrox 30 Ml Oral.Susp) 30 ml PO Q6H PRN PRN Reason: Heartburn/Nausea Amlodipine Besylate (Amlodipine Besylate 10 Mg Tablet) 10 mg PO DAILY [facility]; Protocol Last Admin: 05/10/25 09:09 Dose: 10 mg Atorvastatin Calcium (Atorvastatin Calcium 80 Mg Tablet) 80 mg PO BEDTIME PAYAM Last Admin: 05/09/25 21:17 Dose: 80 mg Benztropine Mesylate (Benztropine Mesylate 0.5 Mg Tablet) 0.5 mg PO BID [facility] Last Admin: 05/10/25 09:09 Dose: 0.5 mg Clonidine HCl (Clonidine Hcl 0.1 Mg Tablet) 0.1 mg PO Q4H PRN; Protocol PRN Reason: severe anxiety Last Admin: 05/05/25 18:49 Dose: 0.1 mg Duloxetine HCl (Duloxetine Hcl 20 Mg Capsule.Dr) 20 mg PO DAILY [facility] Last Admin: 05/10/25 09:08 Dose: 20 mg Ezetimibe (Ezetimibe 10 Mg Tablet) 10 mg PO DAILY [facility] Last Admin: 05/10/25 09:08 Dose: 10 mg Fenofibrate (Fenofibrate 160 Mg Tablet) 160 mg PO DAILY [facility] Last Admin: 05/10/25 09:08 Dose: 160 mg Folic Acid (Folic Acid 1 Mg Tablet) 1 mg PO DAILY [facility] Last Admin: 05/10/25 09:08 Dose: 1 mg Hydroxyzine HCl (Hydroxyzine Hcl 50 Mg Tablet) 50 mg PO Q6H PRN PRN Reason: mild anxiety Last Admin: 05/06/25 16:48 Dose: 50 mg Ibuprofen (Ibuprofen 800 Mg Tablet) 800 mg PO Q8H PRN PRN Reason: Headache/Pain, Scale 1-10 Last Admin: 05/06/25 16:48 Dose: 800 mg Lidocaine (Lidocaine 4 % Patch Adh..Patch) 0.5 patch TRANSDERMA DAILY PRN; Protocol PRN Reason: back pain Lurasidone HCl (Lurasidone Hcl 20 Mg Tablet) 20 mg PO 1700 [facility] Last Admin: 05/09/25 17:53 Dose: 20 mg Magnesium Hydroxide (Milk Of Magnesia 30 Ml Oral.Susp) 30 ml PO DAILY PRN PRN Reason: Constipation Methocarbamol (Methocarbamol 500 Mg Tablet) 500 mg PO TID [facility] Last Admin: 05/10/25 14:45 Dose: 500 mg Modafinil (Modafinil 100 Mg Tablet) 100 mg PO DAILY [facility] On Hold: 05/07/25 12:14 Last Admin: 05/07/25 08:54 Dose: 100 mg Multivitamins/Vitamin C (Multivitamin Tablet) 1 tab PO DAILY [facility] Last Admin: 05/10/25 09:08 Dose: 1 tab Naloxone HCl (Naloxone Hcl 0.4 Mg/Ml Vial) 0.04 mg IVPUSH Q5M PRN PRN Reason: Excessive sedation or RR < 8 Naloxone HCl (Naloxone Hcl 0.4 Mg/Ml Vial) 0.04 mg IVPUSH Q5M PRN PRN Reason: Excessive sedation or RR < 8 Naltrexone HCl (Naltrexone Hcl 50 Mg Tablet) 50 mg PO DAILY [facility] Last Admin: 05/10/25 09:08 Dose: 50 mg Omeprazole (Omeprazole 20 Mg Capsule.Dr) 20 mg PO BEDTIME [facility] Last Admin: 05/09/25 21:17 Dose: 20 mg Quetiapine Fumarate (Quetiapine Fumarate 25 Mg Tablet) 25 mg PO TID PRN PRN Reason: breakthrough anxiety Last Admin: 05/05/25 20:28 Dose: 25 mg Thiamine HCl (Thiamine Hcl 100 Mg Tablet) 100 mg PO DAILY [facility] Last Admin: 05/10/25 09:09 Dose: 100 mg Topiramate (Topiramate 25 Mg Tablet) 50 mg PO BEDTIME PAYAM Last Admin: 05/09/25 21:16 Dose: 50 mg Trazodone HCl (Trazodone Hcl 100 Mg Tablet) 100 mg PO BEDTIME PAYAM Last Admin: 05/09/25 21:17 Dose: 100 mg Trazodone HCl (Trazodone Hcl 50 Mg Tablet) 50 mg PO BEDTIME PRN PRN Reason: Insomnia Last Admin: 04/21/25 21:48 Dose: 50 mg Home Medications ?Medication ?Instructions ?Recorded ?Confirmed ?Last Taken ?Type ezetimibe 10 mg tablet (Zetia) 10 mg PO DAILY 12/19/24 04/08/25 03/23/25 History omega-3 acid ethyl esters 1 gram 2 cap PO BID 12/19/24 04/08/25 03/23/25 History capsule rosuvastatin 20 mg tablet 20 mg PO DAILY 12/19/2403/2203/23/25 History amlodipine 10 mg tablet 10 mg PO DAILY 01/31/2503/2203/23/25 History fenofibrate 160 mg tablet 160 mg PO DAILY 01/31/2503/23/25 History [id number]-dt-pjsbc 300 mcg-K 60 1 tab PO DAILY 01/31/25 04/08/25 03/23/25 History mcg-lycop 600 mcg-lutein 300 mcg tablet (Centrum Silver Men) topiramate 50 mg tablet 50 mg PO BEDTIME 01/31/2503/23/25 History trazodone 100 mg tablet 100 mg PO BEDTIME insomnia 1 06/02/24 04/08/25 03/23/25 History Physical Exam 2 Vital Signs: Vital Signs: Last Vital Signs Temp 97.8 F 05/10/25 08:00 Pulse 87 05/10/25 08:00 Resp 18 05/10/25 08:00 BP 118/98 H 05/10/25 09:09 Pulse Ox 99 05/10/25 08:00 O2 Del Method Room Air 05/10/25 08:00 O2 Flow Rate 6 05/05/25 13:47 BMI result Body Mass Index 36.3 Neuro: Other: Alert and oriented x3 with normal cognitive functions. Cranial nerves are normal. Muscle tone and strength are normal in all 4 extremities. Gait and coordination normal. No involuntary movements. Results Labs 05/07/25 11:34 05/08/25 13:48 Microbiology Microbiology Results: Microbiology 05/07/25 15:18 Urine clean catch - Clean Catch Midstream Urine Culture - Final No growth. Assessment and Plan (1) Major depressive disorder, recurrent severe without psychotic features: Status: Acute Being treated with medications and ECT treatment with the last treatment on 05/05/2025 (2) Dyskinesia: Status: Acute Transient following ECT treatment and seems to have resolved. No previous history of movement disorder. (3) Altered mental status: Status: Acute He appears to be back to his baseline. It is possible this was just the effect of the ECT and being somewhat sick with the flu. His MRI is as reported above with no acute findings. EEG is abnormal not unusual for EEG changes such as these following ECT treatment. I would not treat it as a seizure disorder with any medications at this point. (4) Alcohol use disorder: Status: Acute Procedures Date of Service Date of Service: 05/10/25
[2025-05-10 20:00] VITALS: BP 109/67; PULSE 81; RESP 16; TEMP 36.6; O2SAT 97
[2025-05-11 08:00] VITALS: BP 134/80; PULSE 76; TEMP 36.6; O2SAT 97
[2025-05-11 09:11] VITALS: BP 134/80
--- NOTE | 2025-05-11 10:27 | HO.PSYCHPN ---
Subjective Subjective Date of Service: 05/11/25 Reason For Visit: recurrent major depression, alcohol use disorder Interim History: Active on unit. Patient reports feeling good today; he reports not sleeping well last night but is not sure for reason. denies SI/HI/VH/AH. Encouraged to attend groups. Continue tx plan. Medication Compliance: Yes Side effects from medications: No Mental Status Exam Mental Status Exam Patient Appearance: Appropriate Patient Orientation: Person, Place, Time and Situation Level of Consciousness: Awake Patient Behavior: Appropriate, Cooperative and Good Eye Contact Mood Description: Calm Affect Description: Calm Patient Cognition Impaired: No Ability to Follow Directions: Good Speech Pattern: Clear Memory Description: Intact Hallucinations: None Delusions: Not Present Thought Process: Intact Thought Content: positive for Intact Diagnostics Vital Signs (24Hr): Vital Signs - 24 hr 05/10/25 20:00 05/11/25 08:00 05/11/25 09:11 Temperature 97.8 F 97.8 F Pulse Rate 81 76 Respiratory Rate 16 Blood Pressure 109/67 134/80 134/80 Pulse Oximetry 97 97 Oxygen Delivery Method Room Air Room Air BMI result Body Mass Index 36.3 Labs 05/07/25 11:34 05/08/25 13:48 Imaging Radiology Impressions: ITS Impressions Ankle X-Ray 04/11/25 13:50 IMPRESSION: Status post tibiotalar arthroplasty. Degenerative changes as described. Electronically signed by: Jony Olivas MD 04/11/2025 01:59 PM EST RP Foot X-Ray 04/11/25 13:51 IMPRESSION: Status post tibiotalar arthroplasty. Degenerative changes as described. Electronically signed by: Jony Olivas MD 04/11/2025 01:59 PM EST RP Chest X-Ray 05/07/25 09:24 IMPRESSION: No acute airspace disease. Stable chest. Electronically signed by: Maynor Song MD 05/07/2025 09:37 AM EST RP Head CT 05/07/25 11:39 IMPRESSION: No acute intracranial abnormality. Electronically signed by: Emi Carrizales MD 05/07/2025 12:30 PM EST RP Femur X-Ray 05/07/25 12:48 IMPRESSION: No radiographic evidence of acute femoral fracture or dislocation. Clinically correlate. Additional/follow-up imaging as clinically indicated. Electronically signed by: Victor Manuel Hickey MD 05/07/2025 01:20 PM EST RP Hip/Pelvis X-Ray 05/07/25 12:48 IMPRESSION: No acute bony abnormality. Mild osteoarthritis, bilateral hips. Electronically signed by: Fredrick Weeks MD 05/07/2025 01:21 PM EST RP Tibia/Fibula X-Ray 05/07/25 12:48 IMPRESSION: No evidence of fracture of the right tibia or fibula. Electronically signed by: Jony Olivas MD 05/07/2025 01:19 PM EST RP Brain MRI 05/08/25 14:50 IMPRESSION: No acute brain abnormality. Nonspecific white matter T2 FLAIR signal. Statistically matter present small vessel occlusive disease and less likely demyelinating process. Global cerebral atrophy, bifrontal temporal lobes, mild. 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 Electronically signed by: Maynor Song MD 05/08/2025 03:35 PM EST RP Medications Medications Current Medications Acetaminophen (Acetaminophen 325 Mg Tablet) 650 mg PO Q6H PRN PRN Reason: Headache/Pain, Scale 1-10 Last Admin: 05/07/25 20:44 Dose: 650 mg Al Hydroxide/Mg Hydroxide (Magnesium Hydrox/Alum Hydrox 30 Ml Oral.Susp) 30 ml PO Q6H PRN PRN Reason: Heartburn/Nausea Amlodipine Besylate (Amlodipine Besylate 10 Mg Tablet) 10 mg PO DAILY PAYAM; Protocol Last Admin: 05/11/25 09:11 Dose: 10 mg Atorvastatin Calcium (Atorvastatin Calcium 80 Mg Tablet) 80 mg PO BEDTIME PAYAM Last Admin: 05/10/25 20:08 Dose: 80 mg Benztropine Mesylate (Benztropine Mesylate 0.5 Mg Tablet) 0.5 mg PO BID PAYAM Last Admin: 05/11/25 09:11 Dose: 0.5 mg Clonidine HCl (Clonidine Hcl 0.1 Mg Tablet) 0.1 mg PO Q4H PRN; Protocol PRN Reason: severe anxiety Last Admin: 05/05/25 18:49 Dose: 0.1 mg Duloxetine HCl (Duloxetine Hcl 20 Mg Capsule.Dr) 20 mg PO DAILY [facility] Last Admin: 05/11/25 09:10 Dose: 20 mg Ezetimibe (Ezetimibe 10 Mg Tablet) 10 mg PO DAILY [facility] Last Admin: 05/11/25 09:11 Dose: 10 mg Fenofibrate (Fenofibrate 160 Mg Tablet) 160 mg PO DAILY [facility] Last Admin: 05/11/25 09:10 Dose: 160 mg Folic Acid (Folic Acid 1 Mg Tablet) 1 mg PO DAILY [facility] Last Admin: 05/11/25 09:10 Dose: 1 mg Hydroxyzine HCl (Hydroxyzine Hcl 50 Mg Tablet) 50 mg PO Q6H PRN PRN Reason: mild anxiety Last Admin: 05/06/25 16:48 Dose: 50 mg Ibuprofen (Ibuprofen 800 Mg Tablet) 800 mg PO Q8H PRN PRN Reason: Headache/Pain, Scale 1-10 Last Admin: 05/06/25 16:48 Dose: 800 mg Lidocaine (Lidocaine 4 % Patch Adh..Patch) 0.5 patch TRANSDERMA DAILY PRN; Protocol PRN Reason: back pain Lurasidone HCl (Lurasidone Hcl 20 Mg Tablet) 20 mg PO 1700 [facility] Last Admin: 05/10/25 17:05 Dose: 20 mg Magnesium Hydroxide (Milk Of Magnesia 30 Ml Oral.Susp) 30 ml PO DAILY PRN PRN Reason: Constipation Methocarbamol (Methocarbamol 500 Mg Tablet) 500 mg PO TID [facility] Last Admin: 05/11/25 09:11 Dose: 500 mg Modafinil (Modafinil 100 Mg Tablet) 100 mg PO DAILY [facility] On Hold: 05/07/25 12:14 Last Admin: 05/07/25 08:54 Dose: 100 mg Multivitamins/Vitamin C (Multivitamin Tablet) 1 tab PO DAILY [facility] Last Admin: 05/11/25 09:10 Dose: 1 tab Naloxone HCl (Naloxone Hcl 0.4 Mg/Ml Vial) 0.04 mg IVPUSH Q5M PRN PRN Reason: Excessive sedation or RR < 8 Naloxone HCl (Naloxone Hcl 0.4 Mg/Ml Vial) 0.04 mg IVPUSH Q5M PRN PRN Reason: Excessive sedation or RR < 8 Naltrexone HCl (Naltrexone Hcl 50 Mg Tablet) 50 mg PO DAILY [facility] Last Admin: 05/11/25 09:10 Dose: 50 mg Omeprazole (Omeprazole 20 Mg Capsule.) 20 mg PO BEDTIME PAYAM Last Admin: 05/10/25 20:08 Dose: 20 mg Quetiapine Fumarate (Quetiapine Fumarate 25 Mg Tablet) 25 mg PO TID PRN PRN Reason: breakthrough anxiety Last Admin: 05/10/25 20:43 Dose: 25 mg Thiamine HCl (Thiamine Hcl 100 Mg Tablet) 100 mg PO DAILY PAYAM Last Admin: 05/11/25 09:10 Dose: 100 mg Topiramate (Topiramate 25 Mg Tablet) 50 mg PO BEDTIME PAYAM Last Admin: 05/10/25 20:08 Dose: 50 mg Trazodone HCl (Trazodone Hcl 100 Mg Tablet) 100 mg PO BEDTIME PAYAM Last Admin: 05/10/25 20:08 Dose: 100 mg Trazodone HCl (Trazodone Hcl 50 Mg Tablet) 50 mg PO BEDTIME PRN PRN Reason: Insomnia Last Admin: 05/11/25 02:55 Dose: 50 mg Allergies Allergies Allergy/AdvReac Type Severity Reaction Status Date / Time No Known Allergies Allergy Verified 04/01/25 12:28 Assessment & Plan Assessment & Plan (1) Major depressive disorder, recurrent severe without psychotic features: Status: Acute Code(s): F33.2 - Major depressive disorder, recurrent severe without psychotic features Assessment and Plan: Being treated with medications and ECT treatment with the last treatment on 05/05/2025 (2) Dyskinesia: Status: Acute Code(s): G24.9 - Dystonia, unspecified Assessment and Plan: Transient following ECT treatment and seems to have resolved. No previous history of movement disorder. (3) Altered mental status: Status: Acute Code(s): R41.82 - Altered mental status, unspecified Assessment and Plan: He appears to be back to his baseline. It is possible this was just the effect of the ECT and being somewhat sick with the flu. His MRI is as reported above with no acute findings. EEG is abnormal not unusual for EEG changes such as these following ECT treatment. I would not treat it as a seizure disorder with any medications at this point. (4) Alcohol use disorder: Status: Acute Code(s): F10.90 - Alcohol use, unspecified, uncomplicated Plan PLAN: 64-year-old male with medical history of hypertension, type 2 diabetes, hyperlipidemia, compression fracture of L1, and psychiatric history of major depressive disorder, anxiety, and suicidal ideation, presented to [facility] ED on 04/01/2025 for worsening depression, SI, and a fall. Imaging were unrevealing. He was transferred to the ICU for treatment of metabolic syndrome. He endorsed SI before his discharge from the medical unit and therefore was transferred to yesterday. On interview with this provider, patient states that the reason for his psychiatric admission is suicide ideation and severe depression. He reports severe depression on/off, mostly on for the past several years. He feels hopeless, helpless, and worthless. He lacks interest to do things and has low energy. His symptoms are usually well controlled while on medication. However, he relapsed on drinking alcohol 3 weeks ago and stopped taking his psychotropic medications. He was drinking 5 or more nips daily. Prior to his recent relapse, he was sober for 2 years. He admits that his drinking may have worsened his depressive symptoms. He states that he stopped taking his medications because I didn't care anymore. He currently experiencing severe anxiety and depression. Regarding question about suicide ideation, he states that he does not have a plan, but if I went to sleep, I don't care if don't wake up. He denies hypomania or kaveh episodes. He denies HI/AVH. He reports severe left-sided low back pain which started after he fell the day before he presented to [facility] ED. CT abdomen/pelvis revealed acute to subacute superior endplate compression fracture at L1. His goal for this hospitalization is that I want to feel better about myself, and to get back on his medications. Formulation/Clinical reasoning: Patient has chronic anxiety and depression symptoms which worsened in the past 3 weeks when he stopped taking his psychotropic medications and relapsed on alcohol. His symptoms are well controlled on medications. Will continue current treatment regimen and make adjustment as needed. If he fails to respond to treatment, ECT may be ideal since it was effective in the past. Referred to addiction medicine. Lidocaine patch ordered and PT referral made for back pain. 04/10: Patient continues to be severely anxious and depressed. He also continues to experience intermittent left-sided low back pain. No SI/HI/AVH. Continue current treatment regimen. Encourage groups and to engage in physical therapy. Patient may receive inpatient ECT if he does not improve. Verbalized understanding and agreed with the plan. 04/11: Continue tx ECT consult Encourage milieu Right foot/ankle xrays 04/12 Patient says that his mood is better but he remains very anxious. Discussed options and patient agrees to trying Seroquel p.r.n. after reviewing risks/side effects of antipsychotics. 04/14: The depression is somewhat less. Anxiety is high Reports anergy as well I will do what I need to to feel better. Reviewed in team with Dr. May and Dr. Jacob. Dr. May met with pt and ECT will begin on 04/21. Denies SI,HI,AH,VH, SIBS Reports an increase of sleep and intact appetite. Pt asks to return to a regular diet as he reports poor choices on diabetic regime. Also asks that he not receive a safety tray. Intermittent group attendance Over the weekend Clonidine ordered prn along with Seroquel prn and Lidocaine Patch for pain. No new medical/diagnostic results. Plan: Provigil trial. 04/15: Pt reports Provigil has helped this a.m. Pt agrees to ECT trial and will attend milieu groups and will agree to CSS post discharge when ECT is completed. Today, discussed antidepressant trials. Identifies Venlafaxine as most helpful by history. Discussed this, along with Cymbalta with some benefits for pain mgt. Pt would like to trial Cymbalta. Attending groups this afternoon. Plan: Cymbalta 20 mg daily 04/16: Team reports pt slept last evening. He received medical clearance for ECT today Tolerating Cymbalta, Provigil. Will begin Lexapro tapering to 15 mg this evening Not attending groups Rates anxiety/depressive sx 8 today. 04/17/25: Meet with patient in assigned room, report no issues with appetite or sleep. Report anxiety an 8/10 and depression a 7/10. He eats breakfast in room. Denies alcohol craving. Report he went to a group yesterday. Denies SI/SIB/HI/AVH Per nursing, meds compliant, slept for 7 hours, compliant with meds, no side effect. mostly isolated to self in room. Constricted affect.Continue to encourage group participation. 04/18/25: Pt denies SI,HI,AH,VH He is attending some groups He is visable today in the milieu. He has informed his he as a fracture in his back and is unsure of tx plan. called pt's social media analyst to clarify. This was diagnosed when pt was on medicine, having a abdominal diagnostic. On 04/01 abdominal films for pancreatitis were completed. Compression Fx found on L1. STR was suggested by PT when discharged with no further recs when transferred to M5. Nehemias Fuller of PT has been following pt on M5 with exercises, stretching and observation with ambulation. He will need OP PT upon DC. Pt is anxious, apprehensive regarding ECT, however believes this is the appropriate thing to do. Discussed Cymbalta titration to 30 mg and decrease of Escitalopram to 10 mg which he agrees with. 04/19/25: Met with patient in group room A where patient spent time after breakfast watching TV. Reports anxiety 7, and depression is 6/10. Reported that he went to 1 group yesterday. Per nursing, patient slept for 7 hours, compliant with medications. Denies side effects but reports some hand tremors which be from medication or from chronic alcohol abuse. We will continue to monitor. No SI/SIB/HI/AVH. Per ECT consult provider note: Patient has not had ongoing stability from depression for an extended period of time. 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 He did respond to a course of ECT in December and did speak with the patient at the only way that I would recommend another course of ECT at this time would be if the patient will willing to do aggressive treatment including possibility if residential sober home and show a commitment to sobriety otherwise his default appears to be to going back to drinking which also has involved not taking responsibility lack of honesty at times in what he is doing in unless he could commit to this that it would be very hard to achieve any stability. Patient appeared to understand this and patient wish strongly to go forward with ECT as he felt it had been quite helpful and agreed with the above provisions also discussed with the patient the ongoing in potentially severe medical consequences of his chronic alcohol use 04/20/25: Meet with patient in room where he is eating lunch. Report that he does not want to eat and be around with people. Denies sleeping or eating appetite uses. Continue report moderate to severe anxiety of a 7/10 and depression a 6/10. Denies SI/SIB/HI/AVH. Does not have alcohol craving at this moment. Flat/constricted affect. He is looking forward to having ECT tomorrow which he was told by his primary attending. Can observed him sometimes in dinning area but keep to self, not talk to anyone unless approach. Able to make needs known. Per nursing, patient slept for 8 hours, denies side effects from medications. Report to nursing staff with same anixety and depression level. Consistent with report. Continue with current plan. Nursing staff to prapare patient for ECT per protocol. 04/21/25: First ECT treatment today which was delayed until this afternoon. Got back from procedure, denies side effects. Denies BRAXTON but feel a little bit tired. Report anxiety and depression as moderate. No behavior issues. Resting in bed after ECT. Encourage groups when able to/ tolerated. Denies SI/SIB/HI/AVH. Flat affect. Continue with current plan. Lipid profile: elevated. 04/22/25:Trever reports his first ECT went well and he is looking forward to continuing the series. No adverse effects reported from cross taper from Escitalopram to Duloxetine, will continue that this evening. Pt reports he is attending some groups, today, however, he is resting in bed (no groups currently occurring, however he does have a list on his bedside table). Denies SI, HI,AH, VH. Plan: Continue tx 04/23/25: ECT Treatment #2. Attending groups, Resting this afternoon, tired after the treatment. Denies SI,HI,AH,VH. I am trying . Team attempting to assist pt to be more engaged and active when in group. Continue tx. 04/24/25: Continue tx. 04/25/25: Continue tx. 04/26/25:Reviewed with team and reviewed plan of care. Team reports minimal improvement with ECT #3 Met with pt who appears brighter and who is up and about the unit this a.m. This afternoon, pt is in bed, reporting post ECT headache has not really resolved from 04/25, however, he feels the depression is decreasing. Ibuprofen ordered prn for headache. 04/28: Continue tx 05/02/25: ECT #6. Pt will continue treatments next week. is very upset-today has been caustic with team, with Matilde per their report. Call to who does not want pt to go to [facility] as she reports what she has read has not been appropriate reviews and she worries he will do poorly there and relapse. She reports she was told that drugs are sold at [facility]. We discussed that patients with both alcohol and substance addiction are treated there. Reviewed with the extensive efforts pt's social media analyst, Thu has put into his treatment, bed searches and exploration of options for ongoing care. agrees that Thu has gone above and beyond, however, she continues to disagree with [facility]. She describes what has been read as frightening . Discussed parameters of pts current insurance and limited number of options. Encouraged her to contact [facility] to discuss options as pt will be making changes soon. Pt, post ECT denies SI,HI,AH,VH. He was informed he will not be going to [facility] and will have ECT on 05/05/25. 05/03Patient reports that he is good and looking forward to discharge; discussed how he is working with social work regarding a specific program. Says he plans to get ECT on Friday 05/04 remains doing well; ECT tomorrow 05/05 ECT #7. Slept eight hours Denies SI,HI,AH,VH Cymbalta dosing changed to HS looking at a program who has interest in pt in [place] 05/06/25: 05/06/25:Flu sx present with fever. Slept 8 hours Denies SI,HI,AH,VH +Depressive sx, +anergy, +fatigue, mild confusion. ECT will cancel for 05/07 due to flu/fever 05/07/25: Team reported this a.m. pt was confused, wandering, incoherent, falling with sx of dyskinesia and with word finding symptoms. Multiple diagnostics were completed. Pt was placed on one to one. Mild hyponatremia was found and fluid restriction of 1200 was suggested. Pt when we met is fatigued, oriented to person, place (he had not been oriented to place at different times during the day). He was in the kitchen for a time this afternoon watching TV. Team report an increase in confusion when taking him back to his room. Benztropine dose x 1 with moderate effect. This was scheduled as a result. Cymbalta, Provigil and Latuda are being held today. Hospitalist team has added more labs. MRI prescreen ordered as well. Reviewed all testing with pt's who reports at home, pt is on a high dose of prescribed Filer 3. She will bring this in so we may re-start it. Plan: Continue to monitor MRI prep Hospitalist team as ordered ESR,CRP, B12, Folate, TSH 05/08/25: Febrile this a.m. Sedate, sleeping. Improved this afternoon, MRI completed. Neurology consult requested. Some diagnostics continue pending. Will re-start Latuda 20 mg this evening and Cymbalta 20 mg on 05/09. Pt has no muscular stiffness, no cogwheeling on exam and reports no stiffness. Will continue benztropine. 05/09: Pt taken off one to one today and trialed on five minute checks. Appears improved- walking without difficulty, no muscle twitching. Alert, oriented. Slept well he reports. Feeling better with a decrease in flu sx. Seen by hospitalist team- no new abnormal results. To be seen by neurology post mri 05/10: Continue tx plan. 05/11: continue tx plan. Patient educated on: diagnosis, medication risk/benefits and therapeutic strategies Reason for continued inpatient stay Substantial Risk for: med/psych decompensation Time Spent With Patient Time: Total time managing care of this patient today _15___ minutes.
[2025-05-11 20:00] VITALS: BP 126/72; PULSE 85; RESP 18; TEMP 36.9; O2SAT 99
[2025-05-12 08:00] VITALS: BP 157/81; PULSE 84; RESP 20; TEMP 36.7; O2SAT 98
[2025-05-12 09:02] VITALS: BP 157/81
--- NOTE | 2025-05-12 11:38 | P.PNPSI_ITS ---
Subjective Subjective Date of Service: 05/12/25 Reason For Visit: recurrent major depression, alcohol use disorder Subjective Notes: Conditional Voluntary Healthcare Proxy: No Guardianship: No Medical Problems Affecting Mental Status: No Interim History: Pt reports he is feeling improved. He appears improved and reports he is still feeling tired. Denies SI,HI,AH,VH Congested cough persists- CXR ordered. Pt denies depressive or anxious sx. Feels prepared to attend his [facility]Residential program on 05/13. Review of medications. Pt reports he continues with tremor and asks that we stop Cymbalta and leave Latuda as by history it has not caused any SE. Cymbalta was stopped as a result. Medication Compliance: Yes Side effects from medications: Yes (reports ongoing tremor-asks that Cymbalta be discontinued.) Attending Groups: Intermittent Review of Systems Acute medical concerns: No Medical Review of Systems: unchanged Review of Systems Review of Systems Recovery from flu Mental Status Exam Mental Status Exam Patient Appearance: Fatigued Patient Orientation: Person, Place, Time and Situation Level of Consciousness: Alert Patient Behavior: Talkative and Good Eye Contact Mood Description: Calm and Appropriate Affect Description: Calm and Appropriate Patient Cognition Impaired: No Ability to Follow Directions: Good Speech Pattern: Spontaneous Speech Memory Description: Episodic Impaired Hallucinations: None Delusions: Not Present Thought Process: Intact and Goal Oriented Thought Content: positive for Intact and positive for Goal Oriented Depressive Symptoms: Thoughts of /Suicide (denies) Judgement: Good Diagnostics Vital Signs (24Hr): Vital Signs - 24 hr 05/11/25 20:00 05/12/25 08:00 05/12/25 09:02 Temperature 98.4 F 98.1 F Pulse Rate 85 84 Respiratory Rate 18 20 Blood Pressure 126/72 157/81 H 157/81 H Pulse Oximetry 99 98 Oxygen Delivery Method Room Air Room Air BMI result Body Mass Index 36.3 Labs 05/07/25 11:34 05/08/25 13:48 Imaging Radiology Impressions: ITS Impressions Ankle X-Ray 04/11/25 13:50 IMPRESSION: Status post tibiotalar arthroplasty. Degenerative changes as described. Electronically signed by: Jony Olivas MD 04/11/2025 01:59 PM [facility] Foot X-Ray 04/11/25 13:51 IMPRESSION: Status post tibiotalar arthroplasty. Degenerative changes as described. Electronically signed by: Jony Olivas MD 04/11/2025 01:59 PM EST RP Chest X-Ray 05/07/25 09:24 IMPRESSION: No acute airspace disease. Stable chest. Electronically signed by: Maynor Song MD 05/07/2025 09:37 AM EST RP Head CT 05/07/25 11:39 IMPRESSION: No acute intracranial abnormality. Electronically signed by: Emi Carrizales MD 05/07/2025 12:30 PM EST RP Femur X-Ray 05/07/25 12:48 IMPRESSION: No radiographic evidence of acute femoral fracture or dislocation. Clinically correlate. Additional/follow-up imaging as clinically indicated. Electronically signed by: Victor Manuel Hickey MD 05/07/2025 01:20 PM EST RP Hip/Pelvis X-Ray 05/07/25 12:48 IMPRESSION: No acute bony abnormality. Mild osteoarthritis, bilateral hips. Electronically signed by: Fredrick Weeks MD 05/07/2025 01:21 PM EST RP Tibia/Fibula X-Ray 05/07/25 12:48 IMPRESSION: No evidence of fracture of the right tibia or fibula. Electronically signed by: Jony Olivas MD 05/07/2025 01:19 PM EST RP Brain MRI 05/08/25 14:50 IMPRESSION: No acute brain abnormality. Nonspecific white matter T2 FLAIR signal. Statistically matter present small vessel occlusive disease and less likely demyelinating process. Global cerebral atrophy, bifrontal temporal lobes, mild. 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 Electronically signed by: Maynor Song MD 05/08/2025 03:35 PM EST RP Medications Medications Current Medications Acetaminophen (Acetaminophen 325 Mg Tablet) 650 mg PO Q6H PRN PRN Reason: Headache/Pain, Scale 1-10 Last Admin: 05/07/25 20:44 Dose: 650 mg Al Hydroxide/Mg Hydroxide (Magnesium Hydrox/Alum Hydrox 30 Ml Oral.Susp) 30 ml PO Q6H PRN PRN Reason: Heartburn/Nausea Amlodipine Besylate (Amlodipine Besylate 10 Mg Tablet) 10 mg PO DAILY [facility]; Protocol Last Admin: 05/12/25 09:02 Dose: 10 mg Atorvastatin Calcium (Atorvastatin Calcium 80 Mg Tablet) 80 mg PO BEDTIME [facility] Last Admin: 05/11/25 22:20 Dose: 80 mg Benztropine Mesylate (Benztropine Mesylate 0.5 Mg Tablet) 0.5 mg PO BID [facility] Last Admin: 05/12/25 09:02 Dose: 0.5 mg Clonidine HCl (Clonidine Hcl 0.1 Mg Tablet) 0.1 mg PO Q4H PRN; Protocol PRN Reason: severe anxiety Last Admin: 05/05/25 18:49 Dose: 0.1 mg Duloxetine HCl (Duloxetine Hcl 20 Mg Capsule.Dr) 20 mg PO DAILY [facility] Last Admin: 05/12/25 09:02 Dose: 20 mg Ezetimibe (Ezetimibe 10 Mg Tablet) 10 mg PO DAILY [facility] Last Admin: 05/12/25 09:02 Dose: 10 mg Fenofibrate (Fenofibrate 160 Mg Tablet) 160 mg PO DAILY [facility] Last Admin: 05/12/25 09:02 Dose: 160 mg Folic Acid (Folic Acid 1 Mg Tablet) 1 mg PO DAILY [facility] Last Admin: 05/12/25 09:02 Dose: 1 mg Hydroxyzine HCl (Hydroxyzine Hcl 50 Mg Tablet) 50 mg PO Q6H PRN PRN Reason: mild anxiety Last Admin: 05/06/25 16:48 Dose: 50 mg Ibuprofen (Ibuprofen 800 Mg Tablet) 800 mg PO Q8H PRN PRN Reason: Headache/Pain, Scale 1-10 Last Admin: 05/06/25 16:48 Dose: 800 mg Lidocaine (Lidocaine 4 % Patch Adh..Patch) 0.5 patch TRANSDERMA DAILY PRN; Protocol PRN Reason: back pain Lurasidone HCl (Lurasidone Hcl 20 Mg Tablet) 20 mg PO 1700 [facility] Last Admin: 05/11/25 17:06 Dose: 20 mg Magnesium Hydroxide (Milk Of Magnesia 30 Ml Oral.Susp) 30 ml PO DAILY PRN PRN Reason: Constipation Methocarbamol (Methocarbamol 500 Mg Tablet) 500 mg PO TID [facility] Last Admin: 05/12/25 09:02 Dose: 500 mg Modafinil (Modafinil 100 Mg Tablet) 100 mg PO DAILY [facility] On Hold: 05/07/25 12:14 Last Admin: 05/07/25 08:54 Dose: 100 mg Multivitamins/Vitamin C (Multivitamin Tablet) 1 tab PO DAILY [facility] Last Admin: 05/12/25 09:02 Dose: 1 tab Naloxone HCl (Naloxone Hcl 0.4 Mg/Ml Vial) 0.04 mg IVPUSH Q5M PRN PRN Reason: Excessive sedation or RR < 8 Naloxone HCl (Naloxone Hcl 0.4 Mg/Ml Vial) 0.04 mg IVPUSH Q5M PRN PRN Reason: Excessive sedation or RR < 8 Naltrexone HCl (Naltrexone Hcl 50 Mg Tablet) 50 mg PO DAILY [facility] Last Admin: 05/12/25 09:02 Dose: 50 mg Omeprazole (Omeprazole 20 Mg Capsule.Dr) 20 mg PO BEDTIME [facility] Last Admin: 05/11/25 22:21 Dose: 20 mg Quetiapine Fumarate (Quetiapine Fumarate 25 Mg Tablet) 25 mg PO TID PRN PRN Reason: breakthrough anxiety Last Admin: 05/11/25 22:21 Dose: 25 mg Thiamine HCl (Thiamine Hcl 100 Mg Tablet) 100 mg PO DAILY [facility] Last Admin: 05/12/25 09:02 Dose: 100 mg Topiramate (Topiramate 25 Mg Tablet) 50 mg PO BEDTIME [facility] Last Admin: 05/11/25 22:21 Dose: 50 mg Trazodone HCl (Trazodone Hcl 100 Mg Tablet) 100 mg PO BEDTIME [facility] Last Admin: 05/11/25 22:21 Dose: 100 mg Trazodone HCl (Trazodone Hcl 50 Mg Tablet) 50 mg PO BEDTIME PRN PRN Reason: Insomnia Last Admin: 05/11/25 02:55 Dose: 50 mg Allergies Allergies Allergy/AdvReac Type Severity Reaction Status Date / Time No Known Allergies Allergy Verified 04/01/25 12:28 Assessment & Plan Assessment & Plan (1) Major depressive disorder, recurrent severe without psychotic features: Status: Acute Code(s): F33.2 - Major depressive disorder, recurrent severe without psychotic features Assessment and Plan: Being treated with medications and ECT treatment with the last treatment on 05/05/2025 (2) Dyskinesia: Status: Acute Code(s): G24.9 - Dystonia, unspecified Assessment and Plan: Transient following ECT treatment and seems to have resolved. No previous history of movement disorder. (3) Altered mental status: Status: Acute Code(s): R41.82 - Altered mental status, unspecified Assessment and Plan: He appears to be back to his baseline. It is possible this was just the effect of the ECT and being somewhat sick with the flu. His MRI is as reported above with no acute findings. EEG is abnormal not unusual for EEG changes such as these following ECT treatment. I would not treat it as a seizure disorder with any medications at this point. (4) Alcohol use disorder: Status: Acute Code(s): F10.90 - Alcohol use, unspecified, uncomplicated Plan PLAN: 64-year-old male with medical history of hypertension, type 2 diabetes, hyperlipidemia, compression fracture of L1, and psychiatric history of major depressive disorder, anxiety, and suicidal ideation, presented to [facility] ED on 04/01/2025 for worsening depression, SI, and a fall. Imaging were unrevealing. He was transferred to the ICU for treatment of metabolic syndrome. He endorsed SI before his discharge from the medical unit and therefore was transferred to yesterday. On interview with this provider, patient states that the reason for his psychiatric admission is suicide ideation and severe depression. He reports severe depression on/off, mostly on for the past several years. He feels hopeless, helpless, and worthless. He lacks interest to do things and has low energy. His symptoms are usually well controlled while on medication. However, he relapsed on drinking alcohol 3 weeks ago and stopped taking his psychotropic medications. He was drinking 5 or more nips daily. Prior to his recent relapse, he was sober for 2 years. He admits that his drinking may have worsened his depressive symptoms. He states that he stopped taking his medications because I didn't care anymore. He currently experiencing severe anxiety and depression. Regarding question about suicide ideation, he states that he does not have a plan, but if I went to sleep, I don't care if don't wake up. He denies hypomania or kaveh episodes. He denies HI/AVH. He reports severe left-sided low back pain which started after he fell the day before he presented to [facility] ED. CT abdomen/pelvis revealed acute to subacute superior endplate compression fracture at L1. His goal for this hospitalization is that I want to feel better about myself, and to get back on his medications. Formulation/Clinical reasoning: Patient has chronic anxiety and depression symptoms which worsened in the past 3 weeks when he stopped taking his psychotropic medications and relapsed on alcohol. His symptoms are well controlled on medications. Will continue current treatment regimen and make adjustment as needed. If he fails to respond to treatment, ECT may be ideal since it was effective in the past. Referred to addiction medicine. Lidocaine patch ordered and PT referral made for back pain. 04/10: Patient continues to be severely anxious and depressed. He also continues to experience intermittent left-sided low back pain. No SI/HI/AVH. Continue current treatment regimen. Encourage groups and to engage in physical therapy. Patient may receive inpatient ECT if he does not improve. Verbalized understanding and agreed with the plan. 04/11: Continue tx ECT consult Encourage milieu Right foot/ankle xrays 04/12 Patient says that his mood is better but he remains very anxious. Discussed options and patient agrees to trying Seroquel p.r.n. after reviewing risks/side effects of antipsychotics. 04/14: The depression is somewhat less. Anxiety is high Reports anergy as well I will do what I need to to feel better. Reviewed in team with Dr. May and Dr. Jacob. Dr. May met with pt and ECT will begin on 04/21. Denies SI,HI,AH,VH, SIBS Reports an increase of sleep and intact appetite. Pt asks to return to a regular diet as he reports poor choices on diabetic regime. Also asks that he not receive a safety tray. Intermittent group attendance Over the weekend Clonidine ordered prn along with Seroquel prn and Lidocaine Patch for pain. No new medical/diagnostic results. Plan: Provigil trial. 04/15: Pt reports Provigil has helped this a.m. Pt agrees to ECT trial and will attend milieu groups and will agree to CSS post discharge when ECT is completed. Today, discussed antidepressant trials. Identifies Venlafaxine as most helpful by history. Discussed this, along with Cymbalta with some benefits for pain mgt. Pt would like to trial Cymbalta. Attending groups this afternoon. Plan: Cymbalta 20 mg daily 04/16: Team reports pt slept last evening. He received medical clearance for ECT today Tolerating Cymbalta, Provigil. Will begin Lexapro tapering to 15 mg this evening Not attending groups Rates anxiety/depressive sx 8 today. 04/17/25: Meet with patient in assigned room, report no issues with appetite or sleep. Report anxiety an 8/10 and depression a 7/10. He eats breakfast in room. Denies alcohol craving. Report he went to a group yesterday. Denies SI/SIB/HI/AVH Per nursing, meds compliant, slept for 7 hours, compliant with meds, no side effect. mostly isolated to self in room. Constricted affect.Continue to encourage group participation. 04/18/25: Pt denies SI,HI,AH,VH He is attending some groups He is visable today in the milieu. He has informed his he as a fracture in his back and is unsure of tx plan. called pt's addiction social worker to clarify. This was diagnosed when pt was on medicine, having a abdominal diagnostic. On 04/01 abdominal films for pancreatitis were completed. Compression Fx found on L1. STR was suggested by PT when discharged with no further recs when transferred to . Nehemias Fuller of PT has been following pt on M5 with exercises, stretching and observation with ambulation. He will need OP PT upon DC. Pt is anxious, apprehensive regarding ECT, however believes this is the appropriate thing to do. Discussed Cymbalta titration to 30 mg and decrease of Escitalopram to 10 mg which he agrees with. 04/19/25: Met with patient in group room A where patient spent time after breakfast watching TV. Reports anxiety 7, and depression is 6/10. Reported that he went to 1 group yesterday. Per nursing, patient slept for 7 hours, compliant with medications. Denies side effects but reports some hand tremors which be from medication or from chronic alcohol abuse. We will continue to monitor. No SI/SIB/HI/AVH. Per ECT consult provider note: Patient has not had ongoing stability from depression for an extended period of time. 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 He did respond to a course of ECT in December and did speak with the patient at the only way that I would recommend another course of ECT at this time would be if the patient will willing to do aggressive treatment including possibility if residential sober home and show a commitment to sobriety otherwise his default appears to be to going back to drinking which also has involved not taking responsibility lack of honesty at times in what he is doing in unless he could commit to this that it would be very hard to achieve any stability. Patient appeared to understand this and patient wish strongly to go forward with ECT as he felt it had been quite helpful and agreed with the above provisions also discussed with the patient the ongoing in potentially severe medical consequences of his chronic alcohol use 04/20/25: Meet with patient in room where he is eating lunch. Report that he does not want to eat and be around with people. Denies sleeping or eating appetite uses. Continue report moderate to severe anxiety of a 10 and depression a 10. Denies SI/SIB/HI/AVH. Does not have alcohol craving at this moment. Flat/constricted affect. He is looking forward to having ECT tomorrow which he was told by his primary attending. Can observed him sometimes in dinning area but keep to self, not talk to anyone unless approach. Able to make needs known. Per nursing, patient slept for 8 hours, denies side effects from medications. Report to nursing staff with same anixety and depression level. Consistent with report. Continue with current plan. Nursing staff to prapare patient for ECT per protocol. 04/21/25: First ECT treatment today which was delayed until this afternoon. Got back from procedure, denies side effects. Denies BRAX[place] but feel a little bit tired. Report anxiety and depression as moderate. No behavior issues. Resting in bed after ECT. Encourage groups when able to/ tolerated. Denies SI/SIB/HI/AVH. Flat affect. Continue with current plan. Lipid profile: elevated. 04/22/25:Trever reports his first ECT went well and he is looking forward to continuing the series. No adverse effects reported from cross taper from Escitalopram to Duloxetine, will continue that this evening. Pt reports he is attending some groups, today, however, he is resting in bed (no groups currently occurring, however he does have a list on his bedside table). Denies SI, HI,AH, VH. Plan: Continue tx 04/23/25: ECT Treatment #2. Attending groups, Resting this afternoon, tired after the treatment. Denies SI,HI,AH,VH. I am trying . Team attempting to assist pt to be more engaged and active when in group. Continue tx. 04/24/25: Continue tx. 04/25/25: Continue tx. 04/26/25:Reviewed with team and reviewed plan of care. Team reports minimal improvement with ECT #3 Met with pt who appears brighter and who is up and about the unit this a.m. This afternoon, pt is in bed, reporting post ECT headache has not really resolved from 04/25, however, he feels the depression is decreasing. Ibuprofen ordered prn for headache. 04/28: Continue tx 05/02/25: ECT #6. Pt will continue treatments next week. is very upset-today has been caustic with team, with Matilde per their report. Call to who does not want pt to go to [facility] as she reports what she has read has not been appropriate reviews and she worries he will do poorly there and relapse. She reports she was told that drugs are sold at [facility]. We discussed that patients with both alcohol and substance addiction are treated there. Reviewed with the extensive efforts pt's addiction social worker, Thu has put into his treatment, bed searches and exploration of options for ongoing care. agrees that Thu has gone above and beyond, however, she continues to disagree with [facility]. She describes what has been read as frightening . Discussed parameters of pts current insurance and limited number of options. Encouraged her to contact [facility] to discuss options as pt will be making changes soon. Pt, post ECT denies SI,HI,AH,VH. He was informed he will not be going to [facility] and will have ECT on 05/05/25. 05/03Patient reports that he is good and looking forward to discharge; discussed how he is working with social work regarding a specific program. Says he plans to get ECT on Friday 05/04 remains doing well; ECT tomorrow 05/05 ECT #7. Slept eight hours Denies SI,HI,AH,VH Cymbalta dosing changed to HS looking at a program who has interest in pt in [place] 05/06/25: 05/06/25:Flu sx present with fever. Slept 8 hours Denies SI,HI,AH,VH +Depressive sx, +anergy, +fatigue, mild confusion. ECT will cancel for 05/07 due to flu/fever 05/07/25: Team reported this a.m. pt was confused, wandering, incoherent, falling with sx of dyskinesia and with word finding symptoms. Multiple diagnostics were completed. Pt was placed on one to one. Mild hyponatremia was found and fluid restriction of 1200 was suggested. Pt when we met is fatigued, oriented to person, place (he had not been oriented to place at different times during the day). He was in the kitchen for a time this afternoon watching TV. Team report an increase in confusion when taking him back to his room. Benztropine dose x 1 with moderate effect. This was scheduled as a result. Cymbalta, Provigil and Latuda are being held today. Hospitalist team has added more labs. MRI prescreen ordered as well. Reviewed all testing with pt's who reports at home, pt is on a high dose of prescribed [place] 3. She will bring this in so we may re-start it. Plan: Continue to monitor MRI prep Hospitalist team as ordered ESR,CRP, B12, Folate, TSH 05/08/25: Febrile this a.m. Sedate, sleeping. Improved this afternoon, MRI completed. Neurology consult requested. Some diagnostics continue pending. Will re-start Latuda 20 mg this evening and Cymbalta 20 mg on 05/09. Pt has no muscular stiffness, no cogwheeling on exam and reports no stiffness. Will continue benztropine. 05/09: Pt taken off one to one today and trialed on five minute checks. Appears improved- walking without difficulty, no muscle twitching. Alert, oriented. Slept well he reports. Feeling better with a decrease in flu sx. Seen by hospitalist team- no new abnormal results. To be seen by neurology post mri 05/10: Continue tx plan. 05/11: continue tx plan. 05/12: Pt reports he is feeling improved. He appears improved and reports he is still feeling tired. Denies SI,HI,AH,VH Congested cough persists- CXR ordered. Pt denies depressive or anxious sx. Feels prepared to attend his [facility]Residential program on 05/13. Review of medications. Pt reports he continues with tremor and asks that we stop Cymbalta and leave Latuda as by history it has not caused any SE. Cymbalta was stopped as a result. Reason for continued inpatient stay Substantial Risk for: stable for discharge Time Spent With Patient Time: Total time managing care of this patient today ____ minutes.
[2025-05-12 20:00] VITALS: BP 128/73; PULSE 89; RESP 16; TEMP 36.8; O2SAT 98
[2025-05-13 06:31] VITALS: BP 140/91; PULSE 105; RESP 16; TEMP 36.2; O2SAT 95
--- NOTE | 2025-05-13 11:45 | PM.PSYDC ---
DS: Providers Provider Date of admission: 04/08/25 14:27 Date of discharge: 05/13/25 Primary care physician: Unknown Physician Admitting clinician: Estuardo Loja Attending physician on admission: Hemant May Consults: 04/09/25 12:21 Addiction Medicine Provider Routine Consulting Provider: Addiction Covering Reason for consultation: AUD Has provider been notified: Yes 04/11/25 13:40 Consult to Psychiatry Routine Consulting Provider: [facility] Reason for consultation: ECT Has provider been notified: Yes 04/15/25 10:17 Consult to Hospitalist Routine Comment: Consulting Provider: [facility] Reason For Exam: Medical Clearance for ECT next week 05/07/25 11:12 Consult to Hospitalist Stat Comment: Consulting Provider: [facility] Reason For Exam: confusion, flu, febrile, post ect 05/08/25 16:54 Consult to Neurology Routine Consulting Provider: [facility] Reason for consultation: post ect- mse change, confusion, +flu, diagnostics completed Has provider been notified: No Attending physician on discharge: Hemant May Discharging clinician: Amber Shipley DS: Diagnosis Discharge Diagnosis (1) Major depressive disorder, recurrent severe without psychotic features: Status: Acute (2) Dyskinesia: Status: Acute (3) Altered mental status: Status: Acute (4) Alcohol use disorder: Status: Acute DS: Medications Discharge Medications Home Medications: Previous Rx's ?Medication ?Instructions ?Recorded acetaminophen 325 mg tablet 650 mg (2 x 325 mg) PO Q6H PRN 05/12/25 Headache/Pain, Scale 1-10 #60 tabs amlodipine 10 mg tablet 10 mg PO DAILY #30 tabs 05/12/25 atorvastatin 80 mg tablet 80 mg PO BEDTIME #3 tabs 05/12/25 benztropine 0.5 mg tablet 0.5 mg PO BID #60 tabs 05/12/25 clonidine HCl 0.1 mg tablet 0.1 mg PO Q4H PRN severe anxiety 05/12/25 #3 tabs ezetimibe 10 mg tablet (Zetia) 10 mg PO DAILY #30 tabs 05/12/25 fenofibrate 160 mg tablet 160 mg PO DAILY #30 tabs 05/12/25 folic acid 1 mg tablet 1 mg PO DAILY #30 tabs 05/12/25 hydroxyzine HCl 50 mg tablet 50 mg PO Q6H PRN mild anxiety #30 05/12/25 tabs ibuprofen 800 mg tablet 800 mg PO Q8H PRN Headache/Pain, 05/12/25 Scale 1-10 #60 tabs lidocaine 4 % topical patch 0.5 patch transdermal DAILY PRN 05/12/25 (Lidocaine Pain Relief) back pain #15 ea lurasidone 20 mg tablet (Latuda) 20 mg PO 1700 #30 tabs 05/12/25 methocarbamol 500 mg tablet 500 mg PO TID #90 tabs 05/12/25 mlsjqsov-ob-yebvq 300 mcg-K 60 1 tab PO DAILY #30 tabs 05/12/25 mcg-lycop 600 mcg-lutein 300 mcg tablet (Centrum Silver Men) multivitamin (Daily-Haylie tablet) 1 tab PO DAILY #30 tabs 05/12/25 naltrexone 50 mg tablet 50 mg PO DAILY 30 days #30 tabs 05/12/25 omega-3 acid ethyl esters 1 gram 2 cap PO BID #120 caps 05/12/25 capsule omeprazole 20 mg capsule,delayed 20 mg PO BEDTIME 30 days #30 caps 05/12/25 release quetiapine 25 mg tablet 25 mg PO TID PRN breakthrough 05/12/25 anxiety #60 tabs thiamine mononitrate (vit B1) 100 100 mg PO DAILY #30 tabs 05/12/25 mg tablet topiramate 50 mg tablet 50 mg PO BEDTIME #30 tabs 05/12/25 trazodone 100 mg tablet 100 mg PO BEDTIME insomnia #30 tabs 05/12/25 Mental Status Exam Mental Status Exam Patient Appearance: Fatigued Patient Orientation: Person, Place, Time and Situation Level of Consciousness: Alert Patient Behavior: Talkative and Good Eye Contact Mood Description: Calm and Appropriate Affect Description: Calm and Appropriate Patient Cognition Impaired: No Ability to Follow Directions: Good Speech Pattern: Spontaneous Speech Memory Description: Episodic Impaired Hallucinations: None Delusions: Not Present Thought Process: Intact and Goal Oriented Thought Content: positive for Intact and positive for Goal Oriented Depressive Symptoms: Thoughts of /Suicide (denies) Judgement: Good Data Data Completed and Pending Completed studies during hospitalization [Text1]: 05/07/25 05/07/25 05/07/25 08:13 11:34 11:34 WBC 6.1 Cancelled RBC 4.83 Hgb Hct MCV MCH MCHC RDW Plt Count MPV Immature Gran % (Auto) Neut % (Auto) Lymph % (Auto) [place] % (Auto) Eos % (Auto) Baso % (Auto) Lymph # (Auto) [place] # (Auto) Eos # (Auto) Baso # (Auto) Abs Immat Gran (auto) Absolute Neuts (auto) Absolute Nucleated RBC Nucleated RBC % (auto) ESR Hold Purple Top Sodium Potassium Chloride Carbon Dioxide Anion Gap BUN Creatinine Estim Creat Clear Calc Estimated GFR POC Glucose 113 Random Glucose Calcium Magnesium Total Bilirubin AST ALT Alkaline Phosphatase Ammonia Total Creatine Kinase C-Reactive Protein Total Protein Albumin Triglycerides Cholesterol LDL Cholesterol, Calc HDL Cholesterol Vitamin B12 Folate TSH Urine Color Urine Appearance Urine pH Ur Specific [place] Urine Protein Urine Glucose (UA) Urine Ketones Urine Blood Urine Nitrite Ur Leukocyte Esterase 05/07/25 05/07/25 05/07/25 11:34 11:34 11:34 WBC RBC Cancelled Hgb 14.4 Cancelled Hct 41.5 L Cancelled MCV 85.9 MCH MCHC RDW Plt Count MPV Immature Gran % (Auto) Neut % (Auto) Lymph % (Auto) [place] % (Auto) Eos % (Auto) Baso % (Auto) Lymph # (Auto) [place] # (Auto) Eos # (Auto) Baso # (Auto) Abs Immat Gran (auto) Absolute Neuts (auto) Absolute Nucleated RBC Nucleated RBC % (auto) ESR Hold Purple Top Sodium Potassium Chloride Carbon Dioxide Anion Gap BUN Creatinine Estim Creat Clear Calc Estimated GFR POC Glucose Random Glucose Calcium Magnesium Total Bilirubin AST ALT Alkaline Phosphatase Ammonia Total Creatine Kinase C-Reactive Protein Total Protein Albumin Triglycerides Cholesterol LDL Cholesterol, Calc HDL Cholesterol Vitamin B12 Folate TSH Urine Color Urine Appearance Urine pH Ur Specific [place] Urine Protein Urine Glucose (UA) Urine Ketones Urine Blood Urine Nitrite Ur Leukocyte Esterase 05/07/25 05/07/25 05/07/25 11:34 11:34 11:34 WBC RBC Hgb Hct MCV Cancelled MCH 29.8 Cancelled MCHC 34.7 Cancelled RDW 12.5 Plt Count MPV Immature Gran % (Auto) Neut % (Auto) Lymph % (Auto) [place] % (Auto) Eos % (Auto) Baso % (Auto) Lymph # (Auto) [place] # (Auto) Eos # (Auto) Baso # (Auto) Abs Immat Gran (auto) Absolute Neuts (auto) Absolute Nucleated RBC Nucleated RBC % (auto) ESR Hold Purple Top Sodium Potassium Chloride Carbon Dioxide Anion Gap BUN Creatinine Estim Creat Clear Calc Estimated GFR POC Glucose Random Glucose Calcium Magnesium Total Bilirubin AST ALT Alkaline Phosphatase Ammonia Total Creatine Kinase C-Reactive Protein Total Protein Albumin Triglycerides Cholesterol LDL Cholesterol, Calc HDL Cholesterol Vitamin B12 Folate TSH Urine Color Urine Appearance Urine pH Ur Specific [place] Urine Protein Urine Glucose (UA) Urine Ketones Urine Blood Urine Nitrite Ur Leukocyte Esterase 05/07/25 05/07/25 05/07/25 11:34 11:34 11:34 WBC RBC Hgb Hct MCV MCH MCHC RDW Cancelled Plt Count 232 Cancelled MPV 9.3 L Cancelled Immature Gran % (Auto) 0.7 H Neut % (Auto) Lymph % (Auto) [place] % (Auto) Eos % (Auto) Baso % (Auto) Lymph # (Auto) [place] # (Auto) Eos # (Auto) Baso # (Auto) Abs Immat Gran (auto) Absolute Neuts (auto) Absolute Nucleated RBC Nucleated RBC % (auto) ESR Hold Purple Top Sodium Potassium Chloride Carbon Dioxide Anion Gap BUN Creatinine Estim Creat Clear Calc Estimated GFR POC Glucose Random Glucose Calcium Magnesium Total Bilirubin AST ALT Alkaline Phosphatase Ammonia Total Creatine Kinase C-Reactive Protein Total Protein Albumin Triglycerides Cholesterol LDL Cholesterol, Calc HDL Cholesterol Vitamin B12 Folate TSH Urine Color Urine Appearance Urine pH Ur Specific [place] Urine Protein Urine Glucose (UA) Urine Ketones Urine Blood Urine Nitrite Ur Leukocyte Esterase 05/07/25 05/07/25 05/07/25 11:34 11:34 11:34 WBC RBC Hgb Hct MCV MCH MCHC RDW Plt Count MPV Immature Gran % (Auto) Cancelled Neut % (Auto) 71.4 Cancelled Lymph % (Auto) 11.6 L Cancelled [place] % (Auto) 11.3 H Eos % (Auto) Baso % (Auto) Lymph # (Auto) [place] # (Auto) Eos # (Auto) Baso # (Auto) Abs Immat Gran (auto) Absolute Neuts (auto) Absolute Nucleated RBC Nucleated RBC % (auto) ESR Hold Purple Top Sodium Potassium Chloride Carbon Dioxide Anion Gap BUN Creatinine Estim Creat Clear Calc Estimated GFR POC Glucose Random Glucose Calcium Magnesium Total Bilirubin AST ALT Alkaline Phosphatase Ammonia Total Creatine Kinase C-Reactive Protein Total Protein Albumin Triglycerides Cholesterol LDL Cholesterol, Calc HDL Cholesterol Vitamin B12 Folate TSH Urine Color Urine Appearance Urine pH Ur Specific [place] Urine Protein Urine Glucose (UA) Urine Ketones Urine Blood Urine Nitrite Ur Leukocyte Esterase 05/07/25 05/07/25 05/07/25 11:34 11:34 11:34 WBC RBC Hgb Hct MCV MCH MCHC RDW Plt Count MPV Immature Gran % (Auto) Neut % (Auto) Lymph % (Auto) [place] % (Auto) Cancelled Eos % (Auto) 3.9 Cancelled Baso % (Auto) 1.1 Cancelled Lymph # (Auto) 0.7 L [place] # (Auto) Eos # (Auto) Baso # (Auto) Abs Immat Gran (auto) Absolute Neuts (auto) Absolute Nucleated RBC Nucleated RBC % (auto) ESR Hold Purple Top Sodium Potassium Chloride Carbon Dioxide Anion Gap BUN Creatinine Estim Creat Clear Calc Estimated GFR POC Glucose Random Glucose Calcium Magnesium Total Bilirubin AST ALT Alkaline Phosphatase Ammonia Total Creatine Kinase C-Reactive Protein Total Protein Albumin Triglycerides Cholesterol LDL Cholesterol, Calc HDL Cholesterol Vitamin B12 Folate TSH Urine Color Urine Appearance Urine pH Ur Specific [place] Urine Protein Urine Glucose (UA) Urine Ketones Urine Blood Urine Nitrite Ur Leukocyte Esterase 05/07/25 05/07/25 05/07/25 11:34 11:34 11:34 WBC RBC Hgb Hct MCV MCH MCHC RDW Plt Count MPV Immature Gran % (Auto) Neut % (Auto) Lymph % (Auto) [place] % (Auto) Eos % (Auto) Baso % (Auto) Lymph # (Auto) Cancelled [place] # (Auto) 0.7 Cancelled Eos # (Auto) 0.2 Cancelled Baso # (Auto) 0.1 Abs Immat Gran (auto) Absolute Neuts (auto) Absolute Nucleated RBC Nucleated RBC % (auto) ESR Hold Purple Top Sodium Potassium Chloride Carbon Dioxide Anion Gap BUN Creatinine Estim Creat Clear Calc Estimated GFR POC Glucose Random Glucose Calcium Magnesium Total Bilirubin AST ALT Alkaline Phosphatase Ammonia Total Creatine Kinase C-Reactive Protein Total Protein Albumin Triglycerides Cholesterol LDL Cholesterol, Calc HDL Cholesterol Vitamin B12 Folate TSH Urine Color Urine Appearance Urine pH Ur Specific [place] Urine Protein Urine Glucose (UA) Urine Ketones Urine Blood Urine Nitrite Ur Leukocyte Esterase 05/07/25 05/07/25 05/07/25 11:34 11:34 11:34 WBC RBC Hgb Hct MCV MCH MCHC RDW Plt Count MPV Immature Gran % (Auto) Neut % (Auto) Lymph % (Auto) [place] % (Auto) Eos % (Auto) Baso % (Auto) Lymph # (Auto) [place] # (Auto) Eos # (Auto) Baso # (Auto) Cancelled Abs Immat Gran (auto) 0.04 H Cancelled Absolute Neuts (auto) 4.4 Cancelled Absolute Nucleated RBC 0.000 Nucleated RBC % (auto) ESR Hold Purple Top Sodium Potassium Chloride Carbon Dioxide Anion Gap BUN Creatinine Estim Creat Clear Calc Estimated GFR POC Glucose Random Glucose Calcium Magnesium Total Bilirubin AST ALT Alkaline Phosphatase Ammonia Total Creatine Kinase C-Reactive Protein Total Protein Albumin Triglycerides Cholesterol LDL Cholesterol, Calc HDL Cholesterol Vitamin B12 Folate TSH Urine Color Urine Appearance Urine pH Ur Specific [place] Urine Protein Urine Glucose (UA) Urine Ketones Urine Blood Urine Nitrite Ur Leukocyte Esterase 05/07/25 05/07/25 05/07/25 11:34 11:34 11:34 WBC RBC Hgb Hct MCV MCH MCHC RDW Plt Count MPV Immature Gran % (Auto) Neut % (Auto) Lymph % (Auto) [place] % (Auto) Eos % (Auto) Baso % (Auto) Lymph # (Auto) [place] # (Auto) Eos # (Auto) Baso # (Auto) Abs Immat Gran (auto) Absolute Neuts (auto) Absolute Nucleated RBC Cancelled Nucleated RBC % (auto) 0.0 Cancelled ESR Hold Purple Top Sodium 132 L 133 L Potassium 3.8 Chloride Carbon Dioxide Anion Gap BUN Creatinine Estim Creat Clear Calc Estimated GFR POC Glucose Random Glucose Calcium Magnesium Total Bilirubin AST ALT Alkaline Phosphatase Ammonia Total Creatine Kinase C-Reactive Protein Total Protein Albumin Triglycerides Cholesterol LDL Cholesterol, Calc HDL Cholesterol Vitamin B12 Folate TSH Urine Color Urine Appearance Urine pH Ur Specific [place] Urine Protein Urine Glucose (UA) Urine Ketones Urine Blood Urine Nitrite Ur Leukocyte Esterase 05/07/25 05/07/25 05/07/25 11:34 11:34 11:34 WBC RBC Hgb Hct MCV MCH MCHC RDW Plt Count MPV Immature Gran % (Auto) Neut % (Auto) Lymph % (Auto) [place] % (Auto) Eos % (Auto) Baso % (Auto) Lymph # (Auto) [place] # (Auto) Eos # (Auto) Baso # (Auto) Abs Immat Gran (auto) Absolute Neuts (auto) Absolute Nucleated RBC Nucleated RBC % (auto) ESR Hold Purple Top Sodium Potassium 3.8 Chloride 104 104 Carbon Dioxide 21 L 21 L Anion Gap 11 L BUN Creatinine Estim Creat Clear Calc Estimated GFR POC Glucose Random Glucose Calcium Magnesium Total Bilirubin AST ALT Alkaline Phosphatase Ammonia Total Creatine Kinase C-Reactive Protein Total Protein Albumin Triglycerides Cholesterol LDL Cholesterol, Calc HDL Cholesterol Vitamin B12 Folate TSH Urine Color Urine Appearance Urine pH Ur Specific [place] Urine Protein Urine Glucose (UA) Urine Ketones Urine Blood Urine Nitrite Ur Leukocyte Esterase 05/07/25 05/07/25 05/07/25 11:34 11:34 11:34 WBC RBC Hgb Hct MCV MCH MCHC RDW Plt Count MPV Immature Gran % (Auto) Neut % (Auto) Lymph % (Auto) [place] % (Auto) Eos % (Auto) Baso % (Auto) Lymph # (Auto) [place] # (Auto) Eos # (Auto) Baso # (Auto) Abs Immat Gran (auto) Absolute Neuts (auto) Absolute Nucleated RBC Nucleated RBC % (auto) ESR Hold Purple Top Sodium Potassium Chloride Carbon Dioxide Anion Gap 12 BUN 12 13 Creatinine 1.16 1.16 Estim Creat Clear Calc 80.2 Estimated GFR POC Glucose Random Glucose Calcium Magnesium Total Bilirubin AST ALT Alkaline Phosphatase Ammonia Total Creatine Kinase C-Reactive Protein Total Protein Albumin Triglycerides Cholesterol LDL Cholesterol, Calc HDL Cholesterol Vitamin B12 Folate TSH Urine Color Urine Appearance Urine pH Ur Specific [place] Urine Protein Urine Glucose (UA) Urine Ketones Urine Blood Urine Nitrite Ur Leukocyte Esterase 05/07/25 05/07/25 05/07/25 11:34 11:34 11:34 WBC RBC Hgb Hct MCV MCH MCHC RDW Plt Count MPV Immature Gran % (Auto) Neut % (Auto) Lymph % (Auto) [place] % (Auto) Eos % (Auto) Baso % (Auto) Lymph # (Auto) [place] # (Auto) Eos # (Auto) Baso # (Auto) Abs Immat Gran (auto) Absolute Neuts (auto) Absolute Nucleated RBC Nucleated RBC % (auto) ESR Hold Purple Top Sodium Potassium Chloride Carbon Dioxide Anion Gap BUN Creatinine Estim Creat Clear Calc 80.2 Estimated GFR > 60 > 60 POC Glucose Random Glucose 92 93 Calcium 9.5 D Magnesium Total Bilirubin AST ALT Alkaline Phosphatase Ammonia Total Creatine Kinase C-Reactive Protein Total Protein Albumin Triglycerides Cholesterol LDL Cholesterol, Calc HDL Cholesterol Vitamin B12 Folate TSH Urine Color Urine Appearance Urine pH Ur Specific [place] Urine Protein Urine Glucose (UA) Urine Ketones Urine Blood Urine Nitrite Ur Leukocyte Esterase 05/07/25 05/07/25 05/07/25 11:34 11:34 11:34 WBC RBC Hgb Hct MCV MCH MCHC RDW Plt Count MPV Immature Gran % (Auto) Neut % (Auto) Lymph % (Auto) [place] % (Auto) Eos % (Auto) Baso % (Auto) Lymph # (Auto) [place] # (Auto) Eos # (Auto) Baso # (Auto) Abs Immat Gran (auto) Absolute Neuts (auto) Absolute Nucleated RBC Nucleated RBC % (auto) ESR Hold Purple Top Sodium Potassium Chloride Carbon Dioxide Anion Gap BUN Creatinine Estim Creat Clear Calc Estimated GFR POC Glucose Random Glucose Calcium 9.4 Magnesium Total Bilirubin 0.8 0.8 AST 41 H 41 H ALT 43 H Alkaline Phosphatase Ammonia Total Creatine Kinase C-Reactive Protein Total Protein Albumin Triglycerides Cholesterol LDL Cholesterol, Calc HDL Cholesterol Vitamin B12 Folate TSH Urine Color Urine Appearance Urine pH Ur Specific [place] Urine Protein Urine Glucose (UA) Urine Ketones Urine Blood Urine Nitrite Ur Leukocyte Esterase 05/07/25 05/07/25 05/07/25 11:34 11:34 11:34 WBC RBC Hgb Hct MCV MCH MCHC RDW Plt Count MPV Immature Gran % (Auto) Neut % (Auto) Lymph % (Auto) [place] % (Auto) Eos % (Auto) Baso % (Auto) Lymph # (Auto) [place] # (Auto) Eos # (Auto) Baso # (Auto) Abs Immat Gran (auto) Absolute Neuts (auto) Absolute Nucleated RBC Nucleated RBC % (auto) ESR Hold Purple Top Sodium Potassium Chloride Carbon Dioxide Anion Gap BUN Creatinine Estim Creat Clear Calc Estimated GFR POC Glucose Random Glucose Calcium Magnesium Total Bilirubin AST ALT 43 H Alkaline Phosphatase 70 70 Ammonia Total Creatine Kinase C-Reactive Protein Total Protein 7.5 7.5 Albumin 4.7 Triglycerides Cholesterol LDL Cholesterol, Calc HDL Cholesterol Vitamin B12 Folate TSH Urine Color Urine Appearance Urine pH Ur Specific [place] Urine Protein Urine Glucose (UA) Urine Ketones Urine Blood Urine Nitrite Ur Leukocyte Esterase 05/07/25 05/07/25 05/07/25 11:34 12:37 16:46 WBC RBC Hgb Hct MCV MCH MCHC RDW Plt Count MPV Immature Gran % (Auto) Neut % (Auto) Lymph % (Auto) [place] % (Auto) Eos % (Auto) Baso % (Auto) Lymph # (Auto) [place] # (Auto) Eos # (Auto) Baso # (Auto) Abs Immat Gran (auto) Absolute Neuts (auto) Absolute Nucleated RBC Nucleated RBC % (auto) ESR 17 Hold Purple Top Sodium Potassium Chloride Carbon Dioxide Anion Gap BUN Creatinine Estim Creat Clear Calc Estimated GFR POC Glucose Random Glucose Calcium Magnesium 1.7 Total Bilirubin AST ALT Alkaline Phosphatase Ammonia 41 Total Creatine Kinase 85 C-Reactive Protein 7.40 H Total Protein Albumin 4.7 Triglycerides Cholesterol LDL Cholesterol, Calc HDL Cholesterol Vitamin B12 413 Folate 17.0 TSH 1.15 Urine Color Urine Appearance Urine pH Ur Specific [place] Urine Protein Urine Glucose (UA) Urine Ketones Urine Blood Urine Nitrite Ur Leukocyte Esterase 05/08/25 05/08/25 05/09/25 13:05 13:48 08:06 WBC RBC Hgb Hct MCV MCH MCHC RDW Plt Count MPV Immature Gran % (Auto) Neut % (Auto) Lymph % (Auto) [place] % (Auto) Eos % (Auto) Baso % (Auto) Lymph # (Auto) [place] # (Auto) Eos # (Auto) Baso # (Auto) Abs Immat Gran (auto) Absolute Neuts (auto) Absolute Nucleated RBC Nucleated RBC % (auto) ESR Hold Purple Top SEE NOTE Sodium 135 Potassium 3.5 Chloride 105 Carbon Dioxide 21 L Anion Gap 13 BUN 12 Creatinine 1.06 Estim Creat Clear Calc 87.8 Estimated GFR > 60 POC Glucose Random Glucose 158 H Calcium 8.8 D Magnesium Total Bilirubin AST ALT Alkaline Phosphatase Ammonia Total Creatine Kinase C-Reactive Protein Total Protein Albumin Triglycerides 410 H Cholesterol 133 LDL Cholesterol, Calc TNP HDL Cholesterol 22 L Vitamin B12 Folate TSH Urine Color Yellow Urine Appearance Clear Urine pH 5.5 Ur Specific [place] 1.015 Urine Protein Negative Urine Glucose (UA) Negative Urine Ketones Negative Urine Blood Negative Urine Nitrite Negative Ur Leukocyte Esterase Negative 05/07/25 15:18 Urine clean catch - Clean Catch Midstream Urine Culture - Final No growth. Imaging Diagnostic Imaging Impressions Ankle X-Ray 04/11/25 13:50 IMPRESSION: Status post tibiotalar arthroplasty. Degenerative changes as described. Electronically signed by: Jony Olivas MD 04/11/2025 01:59 PM EST RP Foot X-Ray 04/11/25 13:51 IMPRESSION: Status post tibiotalar arthroplasty. Degenerative changes as described. Electronically signed by: Jony Olivas MD 04/11/2025 01:59 PM EST RP Chest X-Ray 05/07/25 09:24 IMPRESSION: No acute airspace disease. Stable chest. Electronically signed by: Maynor Song MD 05/07/2025 09:37 AM EST RP Head CT 05/07/25 11:39 IMPRESSION: No acute intracranial abnormality. Electronically signed by: Emi Carrizales MD 05/07/2025 12:30 PM EST RP Femur X-Ray 05/07/25 12:48 IMPRESSION: No radiographic evidence of acute femoral fracture or dislocation. Clinically correlate. Additional/follow-up imaging as clinically indicated. Electronically signed by: Victor Manuel Hickey MD 05/07/2025 01:20 PM EST RP Hip/Pelvis X-Ray 05/07/25 12:48 IMPRESSION: No acute bony abnormality. Mild osteoarthritis, bilateral hips. Electronically signed by: Fredrick Weeks MD 05/07/2025 01:21 PM EST RP Tibia/Fibula X-Ray 05/07/25 12:48 IMPRESSION: No evidence of fracture of the right tibia or fibula. Electronically signed by: Jony Olivas MD 05/07/2025 01:19 PM EST RP Brain MRI 05/08/25 14:50 IMPRESSION: No acute brain abnormality. Nonspecific white matter T2 FLAIR signal. Statistically matter present small vessel occlusive disease and less likely demyelinating process. Global cerebral atrophy, bifrontal temporal lobes, mild. 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 Electronically signed by: Maynor Song MD 05/08/2025 03:35 PM EST RP DS: Summary Hospital Course Hospital Course: 4-year-old male with medical history of hypertension, type 2 diabetes, hyperlipidemia, compression fracture of L1, and psychiatric history of major depressive disorder, anxiety, and suicidal ideation, presented to [facility] on 04/01/2025 for worsening depression, SI, and a fall. Imaging were unrevealing. He was transferred to the ICU for treatment of metabolic syndrome. He endorsed SI before his discharge from the medical unit and therefore was transferred to yesterday. On interview with this provider, patient states that the reason for his psychiatric admission is suicide ideation and severe depression. He reports severe depression on/off, mostly on for the past several years. He feels hopeless, helpless, and worthless. He lacks interest to do things and has low energy. His symptoms are usually well controlled while on medication. However, he relapsed on drinking alcohol 3 weeks ago and stopped taking his psychotropic medications. He was drinking 5 or more nips daily. Prior to his recent relapse, he was sober for 2 years. He admits that his drinking may have worsened his depressive symptoms. He states that he stopped taking his medications because I didn't care anymore. He currently experiencing severe anxiety and depression. Regarding question about suicide ideation, he states that he does not have a plan, but if I went to sleep, I don't care if don't wake up. He denies hypomania or kaveh episodes. He denies HI/AVH. He reports severe left-sided back pain which started after he fell the day before he presented to [facility]. CT abdomen/pelvis revealed acute to subacute superior endplate compression fracture at L1. His goal for this hospitalization is that I want to feel better about myself, and to get back on his medications. Medications were evaluated and adjusted. Full milieu therapy was offered to pt to help him strengthen coping skills. Pt completed a course of ECT. He worked with addiction medicine throughout his admission. Upon completion of ECT he developed flu symptoms which extended his stay- complete medical workup was negative. Upon resolution of flu sx and clearing of mental status pt transferred to [facility] for ongoing treatment. Status at Discharge Functional status at discharge: independent ambulation Overall status at discharge: patient is progressing back to baseline Time Spent with Patient Time attestation: Total time managing care of this patient today ____ minutes. Time spent: Less than 30 minutes Discharge Plan Discharge Anticipated Discharge Date/Time: 05/13/25 08:00 Patient Disposition: Xfer Inpatient Rehab Fac Discharge Diagnosis: Recurrent Major Depression Alcohol Use Disorder Low Back Pain Hypertriglyceridemia Referrals: [facility] [Other] - 05/13/25 9:00 am Referral Note: *You have been accepted into [facility] for dual diagnostic purposes. This is an intensive group based program conducive to healing. Physician,Unknown J [Primary Care Provider, Medical] - 1 Week Discharge Medications: New methocarbamol 500 mg Tablet 500 mg PO TID Qty: 90 1RF atorvastatin 80 mg Tablet 80 mg PO BEDTIME Qty: 3 1RF clonidine HCl 0.1 mg Tablet 0.1 mg PO Q4H PRN (Reason: severe anxiety) Qty: 3 1RF Protocol: Hold for SBP< HOLD for SBP < : 90 acetaminophen 325 mg Tablet 650 mg PO Q6H PRN (Reason: Headache/Pain, Scale 1-10) Qty: 60 1RF benztropine 0.5 mg Tablet 0.5 mg PO BID Qty: 60 1RF ibuprofen 800 mg Tablet 800 mg PO Q8H PRN (Reason: Headache/Pain, Scale 1-10) Qty: 60 1RF hydroxyzine HCl 50 mg Tablet 50 mg PO Q6H PRN (Reason: mild anxiety) Qty: 30 1RF lurasidone [Latuda] 20 mg Tablet 20 mg PO 1700 Qty: 30 1RF multivitamin [Daily-Haylie] Tablet 1 tab PO DAILY Qty: 30 1RF quetiapine 25 mg Tablet 25 mg PO TID PRN (Reason: breakthrough anxiety) Qty: 60 1RF lidocaine [Lidocaine Pain Relief] 4 % Adhesive Patch,Medicated 0.5 patch transdermal DAILY PRN (Reason: back pain) Qty: 15 1RF Protocol: Apply to: Apply to: Back folic acid 1 mg Tablet 1 mg PO DAILY Qty: 30 1RF thiamine mononitrate (vit B1) 100 mg Tablet 100 mg PO DAILY Qty: 30 0RF duloxetine 20 mg capsule,delayed release(DR/EC) 20 mg PO DAILY Qty: 30 0RF clonidine HCl 0.1 mg tablet 0.1 mg PO TID PRN (Reason: anxiety) Qty: 60 0RF Continued naltrexone 50 mg tablet 50 mg PO DAILY 30 Days Qty: 30 1RF trazodone 100 mg tablet 100 mg PO BEDTIME Qty: 30 1RF amlodipine 10 mg tablet 10 mg PO DAILY Qty: 30 1RF omeprazole 20 mg Capsule,Delayed Release(Dr/Ec) 20 mg PO BEDTIME 30 Days Qty: 30 1RF ezetimibe [Zetia] 10 mg tablet 10 mg PO DAILY Qty: 30 1RF topiramate 50 mg tablet 50 mg PO BEDTIME Qty: 30 1RF omega-3 acid ethyl esters 1 gram capsule 2 cap PO BID Qty: 120 1RF fenofibrate 160 mg tablet 160 mg PO DAILY Qty: 30 1RF Centrum Silver Men [phone] mcg Tablet 1 tab PO DAILY Qty: 30 1RF Discontinued rosuvastatin 20 mg tablet 20 mg PO DAILY escitalopram oxalate 20 mg tablet 20 mg PO BEDTIME 30 Days Qty: 30 0RF lurasidone [Latuda] 80 mg tablet 80 mg PO DAILY@1700 30 Days Qty: 30 0RF Rx Instructions: must administer with food (at least 350 calories) Discharge Orders: Discharge Order (Routine); Ordered 05/13/25 Ordered By: Amber Shipley Diet: Advance to usual diet Activity on Discharge: As tolerated Stand Alone Forms: Patient Portal Discharge page Print Language: [place] Care Plan Goals: Maintain mood and safe behaviors Take medications as prescribed Continue to pursue sobriety Practice coping skills Health Concerns: Mood and Behavioral Stability Continue to pursue sobriety Plan of Treatment: Take medications as prescribed Work with [facility] to strengthen sobriety Follow up with PCP and OP Providers Assessment: Pt is fully oriented and without SI,HI,AH,VH Pt has improved insight and judgment and wants to continue treatment. Pt is not in imminent risk of harm to self or others and has a safety plan that includes presenting to the closest ER or calling 911 if feeling unsafe. Pt has been observed closely by nursing and unit staff throughout admission. Pt has not engaged in any behaviors that suggest dangerousness to self or others and has demonstrated appropriate behaviors and impulse control. Discharge Date/Time: 05/13/25 06:46
--- NOTE | 2025-05-16 15:10 | P.EN_ITS ---
Documented by User: Amber Shipely, DOG TRACK KENNEL MANAGER 05/16/25 15:19 Event Note Date of Service: 05/16/25 Event Note: Call from pt's Whitney. Pt has called her and asks that she come to bring him home. She reports pt went to ER on 05/15/25 with sx of panic- he was not given any medication she reports and was returned to his program. Pt also reports to he was given nothing for anxiety upon discharge and was not given Robaxin, Provigil or Cymbalta. Discussed with that Robaxin was sent and received by [facility], Provigil was discontinued when pt was ill and not re-started and Cymbalta was held when pt was ill and he did not want to re-start this agent, stating he preferred to continue with Latuda. A refill of Cymbalta 20 mg was sent today in case he changes his mind. For prn meds for anxiety, Clonidine, Hydroxyzine and Quetiapine were sent upon discharge. Whitney is struggling as pt reports he is unhappy at the program. She is encouraging him to remain and continue to work with the team, however, she found the facility difficult to locate, needing to drive one half hour to [employer] [facility] driver meds and having insufficient parking so she could help pt settle in when they arrived. Whitney was informed we are here for her and pt as needed. Time Spent With Patient Time: Total time managing care of this patient today ____ minutes. Documented by User: Hemant May MD 05/18/25 20:40 Event Note Date of Service: 05/18/25
== END 2025-05-13 06:46 | DRG 885 ==
PROVIDERS: Nurse Practitioner Family; Psychiatry & Neurology Psychiatry; Admitting Provider Clinical Nurse Specialist Psychiatric/Mental Health, Adult; Visit Provider Clinical Nurse Specialist Psychiatric/Mental Health, Adult
PROC: GZB4ZZZ Other Electroconvulsive Therapy (ICD-10-PCS; CPT 90870; principal; 2025-04-21 13:30)
DX: F33.2 Major depressive disorder, recurrent severe without psychotic features (principal); G24.9 Dystonia, unspecified; R45.851 Suicidal ideations; E78.2 Mixed hyperlipidemia; K70.9 Alcoholic liver disease, unspecified; J10.1 Influenza due to other identified influenza virus with other respiratory manifestations; F41.9 Anxiety disorder, unspecified; F10.90 Alcohol use, unspecified, uncomplicated; Z20.822 Contact with and (suspected) exposure to COVID-19; Z79.899 Other long term (current) drug therapy
CPT/HCPCS: 36415; 70450; 70551; 71046; 73502; 73552; 73590; 73610; 73630; 74018; 80048; 80053; 80061; 80076; 81003; 82140; 82550; 82607; 82746; 82947; 83036; 83735; 84439; 84443; 85025; 85652; 86140; 87086; 87633; 87637; 90656; 90870; 93005; 95819; 97161; 97530; J0330; J1596; J1805; J1920; J2250; J2704; J7120

== ENCOUNTER 2025-04-08 14:27 | Outpatient (BNV) | payer MEDICARE, SELFPAY | END 2025-05-12 17:55 | PROVIDERS: Admitting Provider Clinical Nurse Specialist Psychiatric/Mental Health, Adult; Visit Provider Specialist | DX: R05.9 Cough, unspecified (principal) | CPT/HCPCS: 71046 ==

== ENCOUNTER → 2025-04-08 14:27 | Outpatient (BNV) | payer MEDICARE, SELFPAY | PROVIDERS: Admitting Provider Clinical Nurse Specialist Psychiatric/Mental Health, Adult; Visit Provider Psychiatry & Neurology Neurology | DX: F33.2 Major depressive disorder, recurrent severe without psychotic features (principal); G24.9 Dystonia, unspecified; R41.82 Altered mental status, unspecified; F10.90 Alcohol use, unspecified, uncomplicated | CPT/HCPCS: 99222 ==

== ENCOUNTER → 2025-04-08 14:27 | Outpatient (BNV) | payer MEDICARE, SELFPAY | PROVIDERS: Admitting Provider Clinical Nurse Specialist Psychiatric/Mental Health, Adult; Visit Provider Clinical Nurse Specialist Psychiatric/Mental Health, Adult | DX: F33.2 Major depressive disorder, recurrent severe without psychotic features (principal); F41.9 Anxiety disorder, unspecified; R45.851 Suicidal ideations; F10.90 Alcohol use, unspecified, uncomplicated; M54.50 Low back pain, unspecified | CPT/HCPCS: 90792; 99232; 99499 ==

== ENCOUNTER → 2025-04-08 14:27 | Outpatient (BNV) | payer MEDICARE, SELFPAY | PROVIDERS: Admitting Provider Clinical Nurse Specialist Psychiatric/Mental Health, Adult; Visit Provider Psychiatry & Neurology Psychiatry | DX: F33.2 Major depressive disorder, recurrent severe without psychotic features (principal); E78.1 Pure hyperglyceridemia | CPT/HCPCS: 99499 ==

== ENCOUNTER → 2025-04-08 14:27 | Outpatient (BNV) | payer MEDICARE, SELFPAY | PROVIDERS: Admitting Provider Clinical Nurse Specialist Psychiatric/Mental Health, Adult; Visit Provider Nurse Practitioner Family | DX: E78.2 Mixed hyperlipidemia (principal) | CPT/HCPCS: 99221 ==